=== PATIENT | male | born 1965 | race Caucasian/White ===

== ENCOUNTER 2020-06-06 08:11 | Emergency (ER) | payer MEDICARE ==
[~2020-06-06] VITALS: Ht 175.3 cm; Wt 88.5 kg
--- OUTSIDE RECORDS SUMMARY | ~2020-06-06 | XMS | Encounter Summary ---
Demographics + + + | Address | [address] | | | [place] [address] | + + + | Home Phone | | + + + | Preferred Language | Unknown | + + + | Marital Status | Single | + + + | Yazidi Affiliation | CHR | + + + | Race | White | + + + | Ethnic Group | Not or | + + + Author + + + | Author | [facility] | + + + | Organization | [facility] | + + + | Address | Unknown | + + + | Phone | Unavailable | + + + Support + + +---------+ + | Name | Relationship | Address | Phone | + + +---------+ + | Servando Boyer | ECON | Unknown | | + + +---------+ + Care Team Providers + +------+ + | Care Freezer Tunnel Operator Name | Role | Phone | + +------+ + | Aryan Grossman MD | PCP | | + +------+ + Encounter Details +--------+ + + + + | Date | Type | Department | Care Team | Description | +--------+ + + + + | 01/29/ | Document-Sc | Dermatology at | Deya Silvestre, | | | 2016 | anned | Mattie Urias | ,PhD 1935 | | | | | Clinic [address] | [address] [place] | | | | | [place], [place] | [address] | | | | | [address] | [phone] | | | | | [phone] | | | +--------+ + + + + Social History + + + +--------+------+ | Tobacco Use | Types | Packs/Day | Years | Date | | | | | Used | | + + + +--------+------+ | Smoker, Current | Cigarettes | 0.5 | 24 | | | Status Unknown | | | | | + + + +--------+------+ + + | Comments: discussed smoking cessation, he will follow up with PCP | + + + + + + + | Alcohol Use | Drinks/Week | oz/Week | Comments | + + + + + | Yes | 2-5 Standard | 1.7 - 4.2 | | | | drinks or equivalent | | | + + + + + + + + | Sex Assigned at | Date Recorded | | | | + + + | Not on file | | + + + documented as of this encounter Plan of Treatment Not on filedocumented as of this encounter Visit Diagnoses Not on filedocumented in this encounter"
--- OUTSIDE RECORDS SUMMARY | ~2020-06-06 | XMS | Encounter Summary ---
Demographics + + + | Address | NEED ADDRESS | | | [place] [address] | + + + | Home Phone | | + + + | Preferred Language | Unknown | + + + | Marital Status | Single | + + + | Druze Affiliation | Unknown | + + + | Race | White | + + + | Ethnic Group | Not or | + + + Author + + + | Author | [facility] | | | and [place] | + + + | Organization | [facility] | | | and [place] | + + + | Address | Unknown | + + + | Phone | Unavailable | + + + Support + + + + + | Name | Relationship | Address | Phone | + + + + + | Servando Boyer | ECON | Unknown | | + + + + + | Hector Garcia | ECON | [place] [address] | | + + + + + Care Team Providers + +------+ + | Care Cashier Credit Name | Role | Phone | + +------+ + | Loi Frausto PA-C | PCP | | + +------+ + Reason for Visit + + + | Reason | Comments | + + + | New Patient | tongue ulcer,patient states that he has no pain | + + + Evaluate & Treat (Routine) +--------+--------+ + + + + | Status | Reason | Specialty | Diagnoses / | Referred By | Referred To | | | | | Procedures | Contact | Contact | +--------+--------+ + + + + | Closed | | Otolaryngolog | Diagnoses | Lisbet, | Antony Grider | | | | y | Glossitis | Loi | MD [address] | | | | | tongue ulcer | PA-C [address] | | | | | | [place] | [place] [address] | | | | | | [place] | [place] | | | | | | [place] | [address] Phone: | | | | | | [address] | [phone] | | | | | | Phone: | Fax: | | | | | | [phone] | [phone] | | | | | | Fax: | | | | | | | [phone] | | +--------+--------+ + + + + Encounter Details +--------+---------+ + + + | Date | Type | Department | Care Team | Description | +--------+---------+ + + + | 08/31/ | Office | [facility] | Antony Grider MD | Tongue mass (Primary | | 2017 | Visit | OTOLARYNGOLOGY [address] | [address] [place] | Dx); Noise-induced | | | | [facility] [address] | [address] [place] | hearing loss of both | | | | [place] | [address] | ears | | | | [address] | | | | | | [phone] | | | +--------+---------+ + + + Social History + + + +--------+------+ | Tobacco Use | Types | Packs/Day | Years | Date | | | | | Used | | + + + +--------+------+ | Heavy Tobacco Smoker | Cigarettes | 1 | 25 | | + + + +--------+------+ + +---+---+---+ | Smokeless Tobacco: | | | | | Never Used | | | | + +---+---+---+ + + +---------+ + | Alcohol Use | Drinks/Week | oz/Week | Comments | + + +---------+ + | Yes | 0 Standard drinks | 14.0 | At least a 6 pack of | | | or equivalent 14 | | beer a day | | | Cans of beer | | | + + +---------+ + + + + | Sex Assigned at | Date Recorded | | | | + + + | Not on file | | + + + documented as of this encounter Last Filed Vital Signs + + + + + | Vital Sign | Reading | Time Taken | Comments | + + + + + | Blood Pressure | - | - | | + + + + + | Pulse | 93 | 08/31/2017 9:02 AM | | | | | PST | | + + + + + | Temperature | - | - | | + + + + + | Respiratory Rate | 16 | 08/31/2017 9:02 AM | | | | | PST | | + + + + + | Oxygen Saturation | 98% | 08/31/2017 9:02 AM | | | | | PST | | + + + + + | Inhaled Oxygen | - | - | | | Concentration | | | | + + + + + | Weight | 83 kg (183 lb) | 08/31/2017 9:02 AM | | | | | PST | | + + + + + | Height | 175.3 cm (5' 9") | 08/31/2017 9:02 AM | | | | | PST | | + + + + + | Body Mass Index | 27.02 | 08/31/2017 9:02 AM | | | | | PST | | + + + + + documented in this encounter Progress Notes Antony Grider MD - 08/31/2017 9:15 AM PSTPatient noted daily area on the underside of his tongue that showed up about 4-5 months ago. It is a dentist pointed out that it should be evaluated. It has some slight tenderness but no severe pain. It is not disappearing and he comes in to have it evaluated. He's not having any other ENT complaints. He has a history of prostate cancer and the fact that he has a area on his tongue that is changed he's bob rned about a possibly being cancer. No difficulty with swallowing and no change in his voca l function. Examination: Patient is an alert 52-year-old male who's communicating well. Skin of the fa ce nose and ears all appeared to be smooth and healthy. Ear canals are open and clean and d rums are clear. He is complaining that he hears very poorly and he has worked around a lot of noise throughout his life. Nasal passages were open without any mass or obstruction note d he has some scabbing on the right septal area and advised to use some Vaseline daily to tr y to help this heal. Floor the mouth, buccal mucosa, hard palate, teeth, lips and gums all appear smooth and healthy. No mass seen in the oropharynx and posterior pharyngeal wall was smooth. Soft palate appeared smooth and healthy. The tongue moves symmetrically. Underne ath the tongue he has a whitish leukoplakic area that's about to 67 mm in size and is rough and irregular. It is mostly nontender. Neck is smooth without any mass or lymphadenopathy noted. Thyroid gland was smooth and trachea is midline. He moves his neck well without any pain or discomfort noted. Impression: #1 leukoplakic lesion of the tongue. #2 hearing loss. Plan: Patient will be scheduled to have the lesion of the tongue removed and minor surgery and sent for path examination. At the same time may be scheduled have an audiogram to [facility] evaluate his hearing. documented in this encounter Plan of Treatment Not on filedocumented as of this encounter Visit Diagnoses + + | Diagnosis | + + | Tongue mass - Primary Swelling, mass, or lump in head and neck | + + | Noise-induced hearing loss of both ears | + + documented in this encounter
--- OUTSIDE RECORDS SUMMARY | ~2020-06-06 | XMS | Encounter Summary ---
Demographics + + + | Address | [address] | | | [place] [address] | + + + | Home Phone | | + + + | Preferred Language | Unknown | + + + | Marital Status | Single | + + + | Mosque Affiliation | CHR | + + + | Race | White | + + + | Ethnic Group | Not or | + + + Author + + + | Author | [facility] | + + + | Organization | [facility] | + + + | Address | Unknown | + + + | Phone | Unavailable | + + + Support + + +---------+ + | Name | Relationship | Address | Phone | + + +---------+ + | Servando Boyer | ECON | Unknown | | + + +---------+ + Care Team Providers + +------+ + | Care Snack Foods Mixer Operator Name | Role | Phone | + +------+ + | Aryan Grossman MD | PCP | | + +------+ + Encounter Details +--------+------+ + + + | Date | Type | Department | Care Team | Description | +--------+------+ + + + | 06/27/ | Lab | Laboratory at [facility] | | Prostate cancer | | 2017 | | [address] | | ([facility]) | | | | [facility] | | | | | | and Healing, | | | | | | [address] | | | | | | [place], [place] | | | | | | [address] | | | | | | [phone] | | | +--------+------+ + + + Social History + + [...] | | | + +---+---+---+ + + | Comments: discussed smoking cessation, [...] Not on filedocumented as of this encounter Procedures + +--------+ + + + | Procedure Name | Priori | Date/Time | Associated Diagnosis | Comments | | | ty | | | | + +--------+ + + + | [facility] PSA TOTAL, | Routin | 06/27/2017 | Prostate cancer | Results for this | | MONITORING | e | 12:45 PM | (HCC) | procedure are in the | | | | PDT | | results section. | + +--------+ + + + | TESTOSTERONE, SERUM | Routin | 06/27/2017 | Prostate cancer | Results for this | | | e | 12:45 PM | (HCC) | procedure are in the | | | | PDT | | results section. | + +--------+ + + + documented in this encounter Results TESTOSTERONE, SERUM (06/27/2017 12:45 PM PDT) + + + + + + | Component | Value | Ref Range | Performed | Pathologist | | | | | At | Signature | + + + + + + | TESTOSTERON | 21 (L)Comment: Total | 300 - 890 ng/dL | [facility] | | | E, ADULT | testosterone values may | | REG UNIV | | | MALE | not reflect optimal | | PTH - [facility] | | | | concentrations in all | | | | | | individuals. Free or | | | | | | bioavailable | | | | | | testosterone | | | | | | measurements may provide | | | | | | supportive | | | | | | information.REFERENCE | | | | | | INTERVAL: Testosterone, | | | | | | Adult Male Access | | | | | | complete set of age- | | | | | | and/or gender-specific | | | | | | reference intervals for | | | | | | this test in the [facility] | | | | | | Laboratory Test | | | | | | Directory | | | | | | (NoWait.Tripda).Performed | | | | | | by [employer],[address] | | | | | | [address], [facility] [place] | | | | | | [address] | | | | | | [phone].NoWait. | | | | | | com, Elvis Fernandes MD, | | | | | | Lab. Director | | | | + + + + + + + + | Specimen | + + | Blood - Blood | | (substance) | + + + + + + + | Performing | Address | City/State/Zipcode | Phone Number | | Organization | | | | + + + + + | [facility] | [address] | [place], [place] | | | UNIV PTH - INT[facility] | | [address] | | + + + + + [facility] PSA TOTAL, MONITORING (06/27/2017 12:45 PM PDT) + +-------+ + + + | Component | Value | Ref Range | Performed | Pathologist | | | | | At | Signature | + +-------+ + + + | PSA TOTAL | 0.92 | ng/mL | [facility] | | | MONITORING | | | LABORATORY | | | | | | SERVICES, | | | | | | [facility] | | | | | [facility] + | | | | | | [facility]AL[facility] | | + +-------+ + + + + + | Specimen | + + | Blood - Blood | | (substance) | + + + + + + + | Performing | Address | City/State/Zipcode | Phone Number | | Organization | | | | + + + + + | [facility] | [address] | [place] [address] | | | SERVICES, [facility] | | | | | HEALTH + HEALING | | | | + + + + + documented in this encounter Visit Diagnoses + + | Diagnosis | + + | Prostate cancer (HCC) Malignant neoplasm of prostate | + + documented in this encounter"
--- OUTSIDE RECORDS SUMMARY | ~2020-06-06 | XMS | Encounter Summary ---
Demographics + + + | Address | NEED ADDRESS | | | [place] [address] | + + + | Home Phone | | + + + | Preferred Language | Unknown | + + + | Marital Status | Single | + + + | Uatsdin Affiliation | Unknown | + + + | Race | White | + + + | Ethnic Group | Not or | + + + Author + + + | Author | [facility] | | | and [place] | + + + | Organization | [facility] | | | and [...] Hector Garcia | ECON | [place] [address] | | + + + + + Care Team Providers + +------+ + | Care Wound Specialist Name | Role | Phone | + +------+ + PCP | Unavailable | + +------+ + Encounter Details +--------+ + + + + | Date | Type | Department | Care Team | Description | +--------+ + + + + | 05/23/ | Emergency | [facility] | Seth Munoz, | Unspecified Disorder | | 2005 | | MEDICAL CENTER | MD [address] | of Skin and | | | | EMERGENCY CENTER | [place] [address] | Subcutaneous Tissue | | | | [address] | [phone] | | | | | [place], [place] | | | | | | [address] | | | | | | [phone] | | | +--------+ + + + + Social History + +-------+ +--------+------+ | Tobacco Use | Types | Packs/Day | Years | Date | | | | | Used | | + +-------+ +--------+------+ | Never Assessed | | | | | + +-------+ +--------+------+ + + + | Sex Assigned at | Date Recorded | | | | + + + | Not on file | | + + + documented as of this encounter Plan of Treatment Not on filedocumented as of this encounter Visit Diagnoses + + | Diagnosis | + + | Unspecified disorder of skin and subcutaneous tissue | + + documented in this encounter"
--- OUTSIDE RECORDS SUMMARY | ~2020-06-06 | XMS | Encounter Summary ---
Demographics + + + | Address | [address] | | | [place] [address] | + + + | Home Phone | | + + + | Preferred Language | Unknown | + + + | Marital Status | Single | + + + | Quaker Affiliation | CHR | + + + | Race | White | + + + | Ethnic Group | Not or | + + + Author + + + | Author | [facility] | + + + | Organization | [facility] | + + + | Address | Unknown | + + + | Phone | Unavailable | + + + Support + + +---------+ + | Name | Relationship | Address | Phone | + + +---------+ + | Servando Boyer | ECON | Unknown | | + + +---------+ + Care Team Providers + +------+ + | Care Clinical Nurse Educator Name | Role | Phone | + +------+ + | Aryan Grossman MD | PCP | | + +------+ + Encounter Details +--------+ + + + + | Date | Type | Department | Care Team | Description | +--------+ + + + + | 05/31/ | Document-Sc | Health Information | Unknown . | | | 2013 | anned | Services [address] | | | | | | [address] | | | | | | Mailcode: [id number] | | | | | | [facility] | | | | | | [place], [place] | | | | | | [address] | | | | | | [phone] | | | +--------+ + + + [...] + + documented as of this encounter Procedure James Acevedo, Faculty - 07/19/2014 1:25 PM PDTAssociated Order(s): LAB REPORTSElectronically sign ed by Faculty Other at 07/19/2014 1:25 PM PDTdocumented in this encounter Plan of Treatment Not on filedocumented as of this encounter Procedures + +--------+ + + + | Procedure Name | Priori | Date/Time | Associated Diagnosis | Comments | | | ty | | | | + +--------+ + + + | LAB REPORTS | | 05/31/2014 | | Results for this | | | | 12:00 AM | | procedure are in the | | | | PDT | | results section. | + +--------+ + + + documented in this encounter Results LAB REPORTS (05/31/2014 12:00 AM PDT) + + + | Narrative | Performed At | + + + | | | | | | + + + + + | Procedure Note | + + | Curtis, Faculty - 07/19/2014 1:25 PM PDT | + + documented in this encounter Visit Diagnoses Not on filedocumented in this encounter"
--- OUTSIDE RECORDS SUMMARY | ~2020-06-06 | XMS | Encounter Summary ---
Demographics + + + | Address | NEED ADDRESS | | | [place] [address] | + + + | Home Phone | | + + + | Preferred Language | Unknown | + + + | Marital Status | Single | + + + | Baptism Affiliation | Unknown | + + + | Race | White | + + + | Ethnic Group | Not or | + + + Author + + + | Author | [facility] | | | and [place] | + + + | Organization | [facility] | | | [...] Hector Garcia | ECON | [place] [address] | | + + + + + Care Team Providers + +------+ + | Care Salmon Troll Fisher Name | Role | Phone | + +------+ + | Aryan Grossman MD | PCP | | + +------+ + Reason for Visit + +--------+ + | Reason | Onset | Comments | | | Date | | + +--------+ + | Medication Reaction | 04/16/ | | | | 2014 | | + +--------+ + Encounter Details +--------+ + + + + | Date | Type | Department | Care Team | Description | +--------+ + + + + | 04/16/ | Telephone | [facility] | Aryan Grossman, | Medication Reaction | | 2014 | | MEDICINE [address] | [address] | | | | | [place], | [place] [address] [place], | | | | | [place] [address] | [place] [address] | | | | | [phone] | [phone] | | | | | | | | +--------+ + + + + Social History + + + +--------+------+ | Tobacco Use | Types | Packs/Day | Years | Date | | | | | Used | | + + + +--------+------+ | Current Some Day | Cigarettes | 1 | 20 | | | Smoker | | | | | + + + +--------+------+ + +---+---+---+ | Smokeless Tobacco: | | | | | Never Used | | | | + +---+---+---+ + + +---------+ + | Alcohol Use | Drinks/Week | oz/Week | Comments | + + +---------+ + | Yes | | 0.0 | Few beers per week | + + +---------+ + + + + | Sex Assigned at | Date Recorded | | | | + + + | Not on file | | + + + documented as of this encounter Miscellaneous Notes Telephone Encounter - Kyleigh De Santiago RN - 04/16/2015 4:39 PM PDTPatient states he chico t to his dentist for an abscessed tooth and was given Amoxicillin which caused his face to s well on one side and then changed by his dentist to Clindamyacin and now his face is swelled to both sides. Advised to go into Urgent Care for evaluation documented in this encounter Plan of Treatment Not on filedocumented as of this encounter Visit Diagnoses Not on filedocumented in this encounter"
--- OUTSIDE RECORDS SUMMARY | ~2020-06-06 | XMS | Encounter Summary ---
Demographics + + + | Address | NEED ADDRESS | | | [place] [address] | + + + | Home Phone | | + + + | Preferred Language | Unknown | + + + | Marital Status | Single | + + + | Holiness Affiliation | Unknown | + + + | Race | White | + + + | Ethnic Group | Not or | + + + Author + + + | Author | [facility] | | | and [place] | + + + | Organization | [facility] | | | and [...] Hector Garcia | ECON | [place] [address] | | + + + + + Care Team Providers + +------+ + | Care Gi Tech Name | Role | Phone | + +------+ + | Loi Frausto PA-C | PCP | | + +------+ + Encounter Details +--------+ + + + + | Date | Type | Department | Care Team | Description | +--------+ + + + + | 02/28/ | Orders Only | [facility] | Zeeshan Hawkins, | Prostate cancer | | 2018 | | [address] | MD [address] | (HCC) (Primary Dx) | | | | [place] | [place] | | | | | [address] | [address] | | | | | [phone] | | | +--------+ + + + + Social History + + + +--------+------+ | Tobacco Use | Types | Packs/Day | Years | Date | | | | | Used | | + + + +--------+------+ | Heavy Tobacco Smoker | Cigarettes | 1 | 21 | | + + + +--------+------+ + +---+---+---+ | Smokeless Tobacco: | | | | | Never Used | | | | + +---+---+---+ + + +---------+ + | Alcohol Use | Drinks/Week | oz/Week | Comments | + + +---------+ + | No | 0 Standard drinks | 0.0 | Recovering alcoholic | | | or equivalent | | stopped 06/26/2017 | + + +---------+ + + + + | Sex Assigned at | Date Recorded | | | | + + + | Not on file | | + + + documented as of this encounter Plan of Treatment Not on filedocumented as of this encounter Visit Diagnoses + + | Diagnosis | + + | Prostate cancer (HCC) - Primary Malignant neoplasm of prostate | + + documented in this encounter"
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
--- OUTSIDE RECORDS SUMMARY | ~2020-06-06 | XMS | Encounter Summary ---
Demographics + + + | Address | NEED ADDRESS | | | [place] [address] | + + + | Home Phone | | + + + | Preferred Language | Unknown | + + + | Marital Status | Single | + + + | Oriental Orthodox Affiliation | Unknown | + + + | Race | White | + + + | Ethnic Group | Not or | + + + Author + + + | Author | [facility] | | | and [place] | + + + | Organization | [facility] | | | [...] + | Hector Garcia | ECON | [place] [address] | | + + + + + Care Team Providers + +------+ + | Care Hospice Manager Name | Role | Phone | + +------+ + | Aryan Grossman MD | PCP | | + +------+ + Reason for Referral Evaluate & Treat (Routine) +--------+ + + + + + | Status | Reason | Specialty | Diagnoses / | Referred By | Referred To | | | | | Procedures | Contact | Contact | +--------+ + + + + + | Closed | Specialty | Sleep | Diagnoses | Chauncey, | Ian, | | | Services | Medicine | Insomnia | Aryan Velásquez MD | Christian Gupta | | | Required | | due to | [address] | MD [address] | | | | | medical | [address] | [place] | | | | | condition | [place] | [place] | | | | | | [place] | [place] | | | | | | [address] | [address] Phone: | | | | | | Phone: | [phone] | | | | | | [phone] | Fax: | | | | | | Fax: | [phone] | | | | | | [phone] | | +--------+ + + + + + Evaluate & Treat (Routine) +--------+ + + + + + | Status | Reason | Specialty | Diagnoses / | Referred By | Referred To | | | | | Procedures | Contact | Contact | +--------+ + + + + + | Closed | Specialty | Dermatology | Diagnoses | Morasch, | Konrad, | | | Services | | Alopecia | Aryan Velásquez MD | Deya Irizarry MD | | | Required | | | [address] | [address] | [address] | | | | | | [place] | [place] | | | | | | [place] | [address] | | | | | | [address] | Phone: | | | | | | Phone: | [phone] | | | | | | [phone] | Fax: | | | | | | Fax: | [phone] | | | | | | [phone] | | +--------+ + + + + + Reason for Visit + + + | Reason | Comments | + + + | Hypertension | | + + + | Insomnia | | + + + | Alopecia | | + + + Encounter Details +--------+---------+ + + + | Date | Type | Department | Care Team | Description | +--------+---------+ + + + | 12/08/ | Office | [facility] | Aryan Grossman, | Essential | | 2016 | Visit | MEDICINE [address] | [address] | hypertension | | | | [address] [place], | [address] [place], | (Primary Dx); | | | | [place] [address] | [place] [address] | Alopecia; Depression | | | | [phone] | [phone] | with anxiety; | | | | | | Insomnia due to | | | | | | medical condition; | | | | | | Alcoholism (HCC); | | | | | | Insomnia, | | | | | | unspecified insomnia | +--------+---------+ + + + Social History [...] + + +---------+ + | No | | 0.0 | States quit drinking | | | | | 3 weeks ago and is | | | | | in classes 06/25/15 | + + +---------+ + + + [...] + + + | Blood Pressure | 130/80 | 12/09/2015 7:25 AM | | | | | PDT | | + + + + + | Pulse | 74 | 12/09/2015 7:25 AM | | | | | PDT | | + + + + + | Temperature | 36.2 C (97.2 F) | 12/09/2015 7:25 AM | | | | | PDT | | + + + + + | Respiratory Rate | 16 | 12/09/2015 7:25 AM | | | | | PDT | | + + + + + | Oxygen Saturation | 98% | 12/09/2015 7:25 AM | | | | | PDT | | + + + + + | Inhaled Oxygen | - | - | | | Concentration | | | | + + + + + | Weight | 92.1 kg (203 lb) | 12/09/2015 7:25 AM | | | | | PDT | | + + + + + | Height | 175.3 cm (5' 9") | 12/09/2015 7:25 AM | | | | | PDT | | + + + + + | Body Mass Index | 29.98 | 12/09/2015 7:25 AM | | | | | PDT | | + + + + + documented in this encounter Progress Notes Aryan Grossman MD - 12/09/2015 7:48 AM PDTFormatting of this note might be different f rom the original. Subjective: Patient ID: Mani Garcia is a 50 y.o. male. HPI Hair Loss, happened 4 year ago, He was under a lot of stress at the time. Small areas all over scalp for the last couple months. HTN, there is no recent chest pain SOB ankle swelling etc. He is compliant with his meds. Depression and Anxiety, Insomnia He is but now taking sertraline. He has difficult sleep and sometimes his mind does not shut off at night. He snores and is concerned he might sto p breathing at night. Alcoholism, he has Still not been drinking. He is almost done with alcohol classes. PMH: HTN Hyperlipidemia Alcoholism PSH: Right thumb 2007 Lumbar Diskectomy 1992 Fhx: Mom 64 Ovarian Cancer Dad 50 of MS complications Sister 54, recurrent lymphoma,. 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 Colon Drinks 5 drinks of whisky per night, poured. Cigarettes 1 ppd Review of Systems Constitutional: no fever, No appetite change, no fatigue. HEENT: Neg ear pain, No nosebleeds,no rhinorrhea,no trouble swallowing and no sinus pressure. Eyes: Neg for pain and no visual disturbance. Respiratory: Neg for cough, no chest tightness, no shortness of breath no wheezing. Cardiovascular: Neg for chest pain, no palpitations and no leg swelling. Gastrointestinal: Neg for nausea,no vomiting,no diarrhea,no constipation no abdominal distention. No Belly pain, no black and no bloody stools, no excessive gas Genitourinary: Negative for urgency, no frequency, no decreased urine volume no difficulty urinating. No Bloody urine Musculoskeletal: Neg for myalgias, no back pain, no joint swelling and No ar thralgias. No joint pain Skin: Neg for color change,no rash and No wounds, no Strange moles , some hair loss Neurological: Neg for dizziness, no Weakness,no light-headedness, no numbness and no headaches. Hematological: Neg for adenopathy. Does not bruise/bleed easily. Psychiatric/Behavioral: Neg for suicidal ideas,no confusion and no agitation. no Depression, no anxiety,some sleep problems , snoring Objective: Physical Exam Heent, WNL, No carotid bruit Chest CTAB Heart RR&R /s M Abd S,NT,ND,BS+ Ext, no CCor E Neuro Non-focal Lymph, no cervical, axillary, inguinal adenopathy Musculoskeletal, no gross deformity or loss or range of motion Skin, no gross lesions, some focal hair loss Assessment: 1. Essential hypertension 2. Alopecia 3. Depression with anxiety 4. Insomnia due to medical condition 5. Alcoholism (HCC) Plan: Refer to Derm, refer to sleep, Refill the ambien, RTC 3 months. Otherwise continue curren t medical regimen. documented in this encounter Plan of Treatment + + +--------+ + + | Name | Type | Priori | Associated Diagnoses | Order Schedule | | | | ty | | | + + +--------+ + + | Ambulatory referral | Outpatient | Routin | Alopecia | Ordered: 12/09/2015 | | to Dermatology | Referral | e | | | + + +--------+ + + | * [facility] | Outpatient | Routin | Insomnia due to | Ordered: 12/09/2015 | | Sleep Disorder - AMB | Referral | e | medical condition | | | Referral | | | | | + + +--------+ + + documented as of this encounter Visit Diagnoses + + | Diagnosis | + + | Essential hypertension - Primary Unspecified essential hypertension | + + | Alopecia Alopecia, unspecified | + + | Depression with anxiety Dysthymic disorder | + + | Insomnia due to medical condition Insomnia due to medical condition classified | | elsewhere | + + | Alcoholism (HCC) Other and unspecified alcohol dependence, unspecified drinking | | behavior | + + | Insomnia, unspecified insomnia | + + documented in this encounter
--- OUTSIDE RECORDS SUMMARY | ~2020-06-06 | XMS | Encounter Summary ---
Demographics + + + | Address | NEED ADDRESS | | | [place] [address] | + + + | Home Phone | | + + + | Preferred Language | Unknown | + + + | Marital Status | Single | + + + | Rastafari Affiliation | Unknown | + + + | Race | White | + + + | Ethnic Group | Not or | + + + Author + + + | Author | [facility] | | | and [place] | + + + | Organization | [facility] | | [...] + | Hector Garcia | ECON | [place] [address] | | + + + + + Care Team Providers + +------+ + | Care Plugger Name | Role | Phone | + +------+ + | Loi Frausto PA-C | PCP | | + +------+ + Reason for Referral Diagnostic/Screening (Routine) +--------+--------+ + + + + | Status | Reason | Specialty | Diagnoses / | Referred By | Referred To | | | | | Procedures | Contact | Contact | +--------+--------+ + + + + | Closed | | Radiology | Diagnoses | Grider, | [facility] | | | | | Cervicalgia | Antony Powell MD | [address] | | | | | Left arm | [address] | [place], | | | | | weakness | [address] | [place] | | | | | Numbness and | [place], | [address] | | | | | tingling in | [place] [address] | Phone: | | | | | left hand | Phone: | [phone] | | | | | Atrophy of | [phone] | Fax: | | | | | muscle of | Fax: | [phone] | | | | | left upper | [phone] | | | | | | arm Other | | | | | | | osteoarthrit | | | | | | | is of spine, | | | | | | | cervical | | | | | | | region | | | | | | | Procedures | | | | | | | MRI Cervical | | | | | | | Spine wo | | | | | | | Contrast | | | +--------+--------+ + + + + Reason for Visit Diagnostic/Screening (Routine) +--------+--------+ + + + + | Status | Reason | Specialty | Diagnoses / | Referred By | Referred To | | | | | Procedures | Contact | Contact | +--------+--------+ + + + + | Closed | | Radiology | Diagnoses | Grider, | [facility] | | | | | Cervicalgia | Antony Powell MD | [address] | | | | | Left arm | [address] | [place], | | | | | weakness | [address] | [place] | | | | | Numbness and | [place], | [address] | | | | | tingling in | [place] [address] | Phone: | | | | | left hand | Phone: | [phone] | | | | | Atrophy of | [phone] | Fax: | | | | | muscle of | Fax: | [phone] | | | | | left upper | [phone] | | | | | | arm Other | | | | | | | osteoarthrit | | | | | | | is of spine, | | | | | | | cervical | | | | | | | region | | | | | | | Procedures | | | | | | | MRI Cervical | | | | | | | Spine wo | | | | | | | Contrast | | | +--------+--------+ + + + + Encounter Details +--------+ + + + + | Date | Type | Department | Care Team | Description | +--------+ + + + + | 11/29/ | Hospital | [facility] | Antony Grider, | Cervicalgia; Left | | 2018 | Encounter | [facility] MRI [address] | MD [address] | arm weakness; | | | | [address] [place], | [place], [place] | Numbness and | | | | [place] [address] | [address] | tingling in left | | | | [phone] | | hand; Atrophy of | | | | | | muscle of left upper | | | | | | arm; Other | | | | | | osteoarthritis of | | | | | | spine, cervical | | | | | | region | +--------+ + + + + Social [...] + + documented as of this encounter Medications at Time of Discharge [...] + + + +---------+ + + | acetaminophen | Take 650 mg by mouth | | 0 | 06/13/20 | | | (TYLENOL) 325 mg | every 6 hours as | | | 17 | 8 | | tablet | needed. | | | | | + + + +---------+ + + | aspirin 81 MG EC | Take 1 tablet by | | 0 | | | | tablet | mouth Daily. | | | | 8 | + + + +---------+ + + [...] + + + +---------+ + + | fluticasone | 1 spray by Nasal | | 0 | 07/11/20 | | | (FLONASE) 50 | route Daily. | | | 17 | 8 | | mcg/nasal spray | | | | | | + + + +---------+ + + | | Take 37.5 mg by | | 0 | 03/16/20 | | | hydroCHLOROthiazide | mouth Daily. | | | 17 | 8 | | 25 mg tablet | | | | | | + + + +---------+ + + | naproxen | Take 500 mg by mouth | | 0 | 09/25/20 | | | (NAPROSYN) 500 mg | 2 times daily. | | | 17 | 9 | | tablet | | | | | | + + + +---------+ + + | ondansetron | Take 4 mg by mouth | | 0 | 05/16/20 | | | (ZOFRAN) 4 mg tablet | as needed. | | | 17 | 8 | + + + +---------+ + + | oxybutynin | Take 1 tablet by | | 0 | 03/28/20 | | | (DITROPAN-XL) 10 MG | mouth as needed. | | | 17 | 8 | | 24 hr tablet | | | | | | + + + +---------+ + + | sodium chloride | 1-2 sprays by Nasal | | 0 | 02/10/20 | | | (OCEAN) 0.65% nasal | route as needed. | | | 17 | 8 | | spray | | | | | | + + + +---------+ + + documented as of this encounter Plan of Treatment Not on filedocumented as of this encounter Procedures + +--------+ + + + | Procedure Name | Priori | Date/Time | Associated Diagnosis | Comments | | | ty | | | | + +--------+ + + + | MRI CERVICAL SPINE | Routin | 11/29/2017 | Cervicalgia Left | Results for this | | WO CONTRAST | e | 3:53 PM | arm weakness | procedure are in the | | | | PST | Numbness and | results section. | | | | | tingling in left | | | | | | hand Atrophy of | | | | | | muscle of left upper | | | | | | arm Other | | | | | | osteoarthritis of | | | | | | spine, cervical | | | | | | region | | + +--------+ + + + documented in this encounter Results MRI Cervical Spine wo Contrast (11/29/2017 3:53 PM PST) + + | Specimen | + + | | + + + + + | Narrative | Performed At | + + + | EXAM: MRI CERVICAL SPINE WO CONTRAST dated 11/29/2017 2:32 PM. | [facility] | | HISTORY: neck pain, left arm numbness, pain, weakness, atrophy, prior | | | CT with spondylosis. Please evaluate for spinal stenosis. Please | | | evaluate for neural foraminal narrowing COMPARISON: CT cervical | | | spine dated December 10, 2015. TECHNIQUE: Multiplanar multisequence | | | MR imaging of the cervical spine without contrast. This is | | | performed on a 3 Faiza magnet. FINDINGS: Reversal of the normal | | | cervical lordosis. Slight anterolisthesis of C4. Diffuse disc | | | desiccation. Moderate disc narrowing at C5-C6 and C6-C7. Mild at | | | C7-T1 through T3-T4. There are Modic type I endplate changes at | | | C3-C4, C5-C6 and C6-C7. No compression deformities. Small | | | posterior disc protrusions at T1-T2 and T2-T3 result in mild | | | narrowing of the central spinal canal. There is a T1 and T2 | | | hypointense round structure and C4. This has some mild STIR | | | hyperintensity. This corresponds to an area of round sclerosis in | | | the C4 vertebral body. The cord has normal size, signal, and | | | contour throughout visible course. Limited evaluation of the | | | posterior fossa contents is unremarkable. Partial visualization of | | | mucous retention cysts in the maxillary sinuses bilaterally. No | | | precervical soft tissue thickening. The following levels are | | | evaluated in the axial plane: C2-C3: No significant spinal canal | | | stenosis or neural foraminal narrowing. C3-C4: No significant | | | disc bulge or protrusion. Bilateral facet arthrosis and uncinate | | | hypertrophy. Moderate bilateral neural foraminal narrowing. | | | C4-C5: Posterior disc protrusion. Central component with high signal | | | suggesting an annular tear. Facet arthrosis and uncinate | | | hypertrophy bilaterally. Mild narrowing of the central spinal | | | canal. Moderate to severe right and moderate left neural foraminal | | | narrowing. C5-C6: Posterior disc protrusion. Mild narrowing of | | | the central spinal canal. Broad component of disc with facet | | | arthrosis and uncinate hypertrophy. Mild to moderate bilateral | | | neural foraminal narrowing. C6-C7: Posterior disc and osteophyte. | | | Mild narrowing of the central spinal canal. Facet arthrosis and | | | uncinate hypertrophy bilaterally. Moderate to severe left and | | | moderate right neural foraminal narrowing. C7-T1: Small posterior | | | disc protrusion. Mild narrowing of the central spinal canal. | | | Right facet arthrosis and uncinate hypertrophy is greater than on | | | the left. Severe right and mild to moderate left neural foraminal | | | narrowing. The visible paravertebral soft tissues are | | | unremarkable. Azygos lobe variant in the right upper lung. | | | IMPRESSION - There is diffuse cervical spondylosis. Central | | | spinal canal narrowing is predominantly mild and seen at the C4-C5, | | | C5-C6, C6-C7, C7-T1 levels. Multilevel neural foraminal narrowing. | | | This is diffuse and affects C3-C4, C4-C5, C6-C7, C7-T1. Details | | | are as above. Sclerotic lesion in C4. This has long-term | | | presence. This could be a remnant metastasis in a patient with | | | known prostate cancer. Dictated and Signed by: Antonio Waite MD | | | Electronically signed: 11/29/2017 7:43 PM | | + + + + + | Procedure Note | + + | Frank, Rad Results In - 11/29/2017 7:46 PM PST EXAM: MRI CERVICAL SPINE WO CONTRAST | | dated 11/29/2017 2:32 PM.HISTORY: neck pain, left arm numbness, pain, weakness, atrophy, | | prior CT withspondylosis. Please evaluate for spinal stenosis. Please evaluate for | | neuralforaminal narrowingCOMPARISON: CT cervical spine dated December 10, 2015.TECHNIQUE: | | Multiplanar multisequence MR imaging of the cervical spine withoutcontrast. This is | | performed on a 3 Faiza magnet. FINDINGS: Reversal of the normal cervical lordosis. | | Slight anterolisthesis ofC4. Diffuse disc desiccation. Moderate disc narrowing at | | C5-C6 and C6-C7. Mild at C7-T1 through T3-T4. There are Modic type I endplate changes | | at C3-C4,C5-C6 and C6-C7. No compression deformities. Small posterior disc | | protrusionsat T1-T2 and T2-T3 result in mild narrowing of the central spinal canal. | | Thereis a T1 and T2 hypointense round structure and C4. This has some mild | | STIRhyperintensity. This corresponds to an area of round sclerosis in the [place] | | body. The cord has normal size, signal, and contour throughoutvisible course. Limited | | evaluation of the posterior fossa contents isunremarkable. Partial visualization of | | mucous retention cysts in the maxillarysinuses bilaterally. No precervical soft tissue | | thickening.The following levels are evaluated in the axial plane:C2-C3: No significant | | spinal canal stenosis or neural foraminal narrowing. C3-C4: No significant disc bulge or | | protrusion. Bilateral facet arthrosis anduncinate hypertrophy. Moderate bilateral | | neural foraminal narrowing.C4-C5: Posterior disc protrusion. Central component with | | high signal suggestingan annular tear. Facet arthrosis and uncinate hypertrophy | | bilaterally. Mildnarrowing of the central spinal canal. Moderate to severe right and | | moderateleft neural foraminal narrowing.C5-C6: Posterior disc protrusion. Mild | | narrowing of the central spinal canal. Broad component of disc with facet arthrosis and | | uncinate hypertrophy. Mild tomoderate bilateral neural foraminal narrowing.C6-C7: | | Posterior disc and osteophyte. Mild narrowing of the central spinalcanal. Facet | | arthrosis and uncinate hypertrophy bilaterally. Moderate tosevere left and moderate | | right neural foraminal narrowing.C7-T1: Small posterior disc protrusion. Mild narrowing | | of the central spinalcanal. Right facet arthrosis and uncinate hypertrophy is greater | | than on theleft. Severe right and mild to moderate left neural foraminal narrowing.The | | visible paravertebral soft tissues are unremarkable. Azygos lobe variant inthe right | | upper lung.IMPRESSION -There is diffuse cervical spondylosis.Central spinal canal | | narrowing is predominantly mild and seen at the C4-C5,C5-C6, C6-C7, C7-T1 | | levels.Multilevel neural foraminal narrowing. This is diffuse and affects C3-C4,C4-C5, | | C6-C7, C7-T1. Details are as above.Sclerotic lesion in C4. This has long-term | | presence. This could be a remnantmetastasis in a patient with known prostate | | cancer.Dictated and Signed by: Antonio Waite MD Electronically signed: 11/29/2017 7:43 | | PM | |moderate bilateral neural foraminal narrowing. | | | |C6-C7: Posterior disc and osteophyte. Mild narrowing of the central spinal | |canal. Facet arthrosis and uncinate hypertrophy bilaterally. Moderate to | |severe left and moderate right neural foraminal narrowing. | | | |C7-T1: Small posterior disc protrusion. Mild narrowing of the central spinal | |canal. Right facet arthrosis and uncinate hypertrophy is greater than on the | |left. Severe right and mild to moderate left neural foraminal narrowing. | | | |The visible paravertebral soft tissues are unremarkable. Azygos lobe variant in | |the right upper lung. | | | |IMPRESSION - | | | |There is diffuse cervical spondylosis. | | | |Central spinal canal narrowing is predominantly mild and seen at the C4-C5, | |C5-C6, C6-C7, C7-T1 levels. | | | |Multilevel neural foraminal narrowing. This is diffuse and affects C3-C4, | |C4-C5, C6-C7, C7-T1. Details are as above. | | | |Sclerotic lesion in C4. This has long-term presence. This could be a remnant | |metastasis in a patient with known prostate cancer. | | | |Dictated and Signed by: Antonio Waite MD | | Electronically signed: 11/29/2017 7:43 PM | + + + +---------+ + + | Performing | Address | City[facility] | Phone Number | | Organization | | | | + +---------+ + + | [facility] | | | | + +---------+ + + documented in this encounter Visit Diagnoses + + | Diagnosis | + + | Cervicalgia | + + | Left arm weakness Other musculoskeletal symptoms referable to limbs | + + | Numbness and tingling in left hand Disturbance of skin sensation | + + | Atrophy of muscle of left upper arm | + + | Other osteoarthritis of spine, cervical region | + + documented in this encounter"
--- OUTSIDE RECORDS SUMMARY | ~2020-06-06 | XMS | Encounter Summary ---
Demographics + + + | Address | [address] | | | [place] [place] [address] | + + + | Home Phone | | + + + | Preferred Language | Unknown | + + + | Marital Status | Single | + + + | Adventist Affiliation | CHR | + + + | Race | White | + + + | Ethnic Group | Not or | + + + Author + + + | Author | [facility] | + + + | Organization | [facility] | + + + | Address | Unknown | + + + | Phone | Unavailable | + + + Support + + +---------+ + | Name | Relationship | Address | Phone | + + +---------+ + | Servando Boyer | ECON | Unknown | | + + +---------+ + Care Team Providers + +------+ + | Care Adult Neuropsychologist Name | Role | Phone | + +------+ + | Aryan Grossman MD | PCP | | + +------+ + Encounter Details +--------+ + + + + | Date | Type | Department | Care Team | Description | +--------+ + + + + | 08/06/ | Document-Sc | [facility] | Frederic Benavidez MD | | | 2014 | anned | [facility]ics at S | [address] | | | | | [place] [address] | [facility] [place] | | | | | [address] [facility] | [address] | | | | | [facility], | [phone] | | | | | [address] | | | | | | [place], [place] | | | | | | [address] | | | | | | [phone] | | | +--------+ + + + [...] documented as of this encounter Procedure James Acevedo Faculty - 07/19/2014 9:26 AM PDTAssociated Order(s): RADIOLOGY urtis Faculty - 07/19/2014 9:26 AM PDTAssociat ed Order(s): PATHOLOGY docum ented in this encounter Plan of Treatment Not on filedocumented as of this encounter Procedures + +--------+ + + + | Procedure Name | Priori | Date/Time | Associated Diagnosis | Comments | | | ty | | | | + +--------+ + + + | RADIOLOGY | | 07/18/2014 | | Results for this | | | | 12:00 AM | | procedure are in the | | | | PDT | | results section. | + +--------+ + + + | PATHOLOGY | | 02/13/2014 | | Results for this | | | | 12:00 AM | | procedure are in the | | | | PDT | | results section. | + +--------+ + + + documented in this encounter Results RADIOLOGY (07/18/2014 12:00 AM PDT) + + + | Narrative | Performed At | + + + | | | | | | + + + + + | Procedure Note | + + | Curtis Faculty - 07/19/2014 9:26 AM PDT | + + PATHOLOGY (02/13/2014 12:00 AM PDT) + + + | Narrative | Performed At | + + + | | | | | | + + + + + | Procedure Note | + + | Analia Acevedo - 07/19/2014 9:26 AM PDT | + + documented in this encounter Visit Diagnoses Not on filedocumented in this encounter"
--- OUTSIDE RECORDS SUMMARY | ~2020-06-06 | XMS | Encounter Summary ---
Demographics + + + | Address | NEED ADDRESS | | | [place] [address] | + + + | Home Phone | | + + + | Preferred Language | Unknown | + + + | Marital Status | Single | + + + | Confucianist Affiliation | Unknown | + + + | Race | White | + + + | Ethnic Group | Not or | + + + Author + + + | Author | [facility] | | | and [place] | + + + | Organization | [facility] | | [...] Hector Garcia | ECON | [place] [address] | | + + + + + Care Team Providers + +------+ + | Care Car Groomer Name | Role | Phone | + +------+ + | Unknown, Doctor | PCP | | + +------+ + Reason for Referral Diagnostic/Screening (Routine) +--------+--------+ + + + + | Status | Reason | Specialty | Diagnoses / | Referred By | Referred To | | | | | Procedures | Contact | Contact | +--------+--------+ + + + + | Closed | | Radiology | Diagnoses | Shreves, | [facility] | | | | | 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, [facility] | [facility] | | | | | cancer (HCC) | [address] | [place] | | | | | Procedures | Elbert Stevenson | MEDICAL | | | | | NM Bone | [address] | CENTER [address] | | | | | Scan Whole | [place], [place] | [place] | | | | | Body | [address] | [place], | | | | | | Phone: | [place] [address] | | | | | | [phone] | Phone: | | | | | | Fax: | [phone] | | | | | | [phone] | Fax: | | | | | | | [phone] | +--------+--------+ + + + + Reason for Visit Auth/Cert +--------+--------+ + + + + | Status | Reason | Specialty | Diagnoses / | Referred By | Referred To | | | | | Procedures | Contact | Contact | +--------+--------+ + + + + | | | | | | | +--------+--------+ + + + + Encounter Details +--------+ + + + + | Date | Type | Department | Care Team | Description | +--------+ + + + + | 12/17/ | Hospital | [facility] | Simran Osman, | Prostate cancer | | 2017 | Encounter | MED CTR NUCLEAR | [facility] [address] [facility] | ([facility]) | | | | MEDICINE [address] | [facility] | | | | | [address], | [place], [place] | | | | | [place] [address] | [address] | | | | | [phone] | [phone] | | | | | | | [...] | Yes | 0 Standard drinks | 0.0 | At least a 6 pack of | | | or equivalent | | beer a day | + + +---------+ + + + [...] +---------+ + + | acetaminophen | Take 500 mg by | | 0 | 11/30/19 | | | (TYLENOL) 500 mg | mouth. | | | 17 | 7 | | tablet | | | | | | + + + +---------+ + + | naproxen | Take 500 mg by | | 0 | 10/22/19 | | | (NAPROSYN) 500 mg | mouth. | | | 17 | 7 | | tablet | | | | | | + + + +---------+ + + | naproxen | take 1 tablet by | 60 | 5 | 04/16/20 | | | (NAPROSYN) 500 mg | mouth twice a day | tablet | | 16 | 7 | | tablet | WITH BREAKFAST AND | | | | | | | DINNER | | | | | + + + +---------+ + + documented as of this encounter Plan of Treatment Not on filedocumented as of this encounter Procedures + +--------+ + + + | Procedure Name | Priori | Date/Time | Associated Diagnosis | Comments | | | ty | | | | + +--------+ + + + | NM BONE SCAN WHOLE | Routin | 12/17/2016 | Prostate cancer | Results for this | | BODY | e | 2:50 PM | (HCC) | procedure are in the | | | | PDT | | results section. | + +--------+ + + + documented in this encounter Results NM Bone Scan Whole Body (12/17/2016 2:50 PM PDT) + + | Specimen | + + | | + + + + + | Narrative | Performed At | + + + | NUCLEAR MEDICINE WHOLE BODY BONE SCAN:12/17/2016 12:41 PM | [facility] | | CLINICAL HISTORY:prostate cancer with biochemical recurrence now with | | | bone pain, assess for metastic disease COMPARISON:07/18/2014 | | | FINDINGS: To obtain the study 23.7 mCi of technetium 99 labeled MDP is | | | administered followed by delayed whole body scanning. Symmetric | | | moderate increased activity in the acromioclavicular joints | | | bilaterally and at the base of the thumb bilaterally. This has typical | | | appearance of radiotracer distribution secondary to degenerative | | | disease. It is similar to the comparison study. Mildly increased | | | activity in the left knee and at L4-L5, also suggestive of | | | degenerative disease. No other areas of increased radiotracer | | | activity. Previously questioned area of increased radiotracer | | | activity in the right acetabular region is not redemonstrated on this | | | study. No photopenic areas to suggest lytic lesions. Soft tissue | | | background and renal activity are within normal limits IMPRESSION | | | - No scintigraphic evidence of osteoblastic metastatic disease. | | | Dictated and Signed by: Rajesh Snyder MD Electronically signed: | | | 12/17/2016 4:15 PM | | + + + + + | Procedure Note | + + | Frank, Rad Results In - 12/17/2016 4:18 PM PDT NUCLEAR MEDICINE WHOLE BODY BONE | | SCAN:12/17/2016 12:41 PMCLINICAL HISTORY:prostate cancer with biochemical recurrence now | | with bone pain,assess for metastic diseaseCOMPARISON:07/18/2014FINDINGS: To obtain the | | study 23.7 mCi of technetium 99 labeled MDP isadministered followed by delayed whole | | body scanning.Symmetric moderate increased activity in the acromioclavicular | | jointsbilaterally and at the base of the thumb bilaterally. This has typicalappearance | | of radiotracer distribution secondary to degenerative disease. It issimilar to the | | comparison study.Mildly increased activity in the left knee and at L4-L5, also | | suggestive ofdegenerative disease.No other areas of increased radiotracer activity. | | Previously questioned area ofincreased radiotracer activity in the right acetabular | | region is notredemonstrated on this study. No photopenic areas to suggest lytic | | lesions.Soft tissue background and renal activity are within normal limitsIMPRESSION - | | No scintigraphic evidence of osteoblastic metastatic disease.Dictated and Signed by: | | Rajesh Snyder MD Electronically signed: 12/17/2016 4:15 PM | | | |Mildly increased activity in the left knee and at L4-L5, also suggestive of | |degenerative disease. | | | |No other areas of increased radiotracer activity. Previously questioned area of | |increased radiotracer activity in the right acetabular region is not | |redemonstrated on this study. No photopenic areas to suggest lytic lesions. | | | |Soft tissue background and renal activity are within normal limits | | | |IMPRESSION - No scintigraphic evidence of osteoblastic metastatic disease. | | | |Dictated and Signed by: Rajesh Snyder MD | | Electronically signed: 12/17/2016 4:15 PM | + + + +---------+ + [...] prostate | + + documented in this encounter Administered Medications + +--------+ + +------+------+ | Medication Order | MAR | Action | Dose | Rate | Site | | | Action | Date | | | | + +--------+ + +------+------+ | technetium TC-99M medronate | Given | 12/18/19 | 25 | | | | (MDP) injection 25 millicurie 25 | | 17 12:42 | -millicu | | | | -millicurie, Intravenous, ONCE | | PM PDT | que | | | | PRN, Other, Starting 12/17/16 | | | | | | | at 1242, For 1 dose, Nuclear | | | | | | | Medicine | | | | | | + +--------+ + +------+------+ +---+---+ | | | +---+---+ documented in this encounter"
--- OUTSIDE RECORDS SUMMARY | ~2020-06-06 | XMS | Encounter Summary ---
Demographics + + + | Address | [address] | | | [place] [facility] [place] [place] [address] | + + + | Home Phone | | + + + | Preferred Language | Unknown | + + + | Marital Status | Single | + + + | Druze Affiliation | CHR | + + + | Race | White | + + + | Ethnic Group | Not or | + + + Author + + + | Author | [facility] | + + + | Organization | [facility] | + + + | Address | Unknown | + + + | Phone | Unavailable | + + + Support + + +---------+ + | Name | Relationship | Address | Phone | + + +---------+ + | Servando Boyer | ECON | Unknown | | + + +---------+ + Care Team Providers + +------+ + | Care Pit Steward Name | Role | Phone | + +------+ + | Aryan Grossman MD | PCP | | + +------+ + Reason for Visit PROC - Dept/Practice Procedure (Routine) +--------+--------+ + + + + | Status | Reason | Specialty | Diagnoses / | Referred By | Referred To | | | | | Procedures | Contact | Contact | +--------+--------+ + + + + | Closed | | Urology | Diagnoses | Shreves, | Shreves, | | | | | Malignant | Simran A, | Simran A, | | | | | neoplasm of | [address] | | | | | prostate | [address] | | | | | Procedures | [address] | [address] | | | | | [place] | [address] | [place], [place] | | | | | [address] | [place], [place] | [address] | | | | | [place] | [address] | Phone: | | | | | SUSPNSION | Phone: | [phone] | | | | | [address] | [phone] | Fax: | | | | | THR/PRPH/DX | Fax: | [phone] | | | | | INJ,SC/IM | [phone] | | | | | | Lupron | | | | | | | injections | | | +--------+--------+ + + + + Encounter Details +--------+---------+ + + + | Date | Type | Department | Care Team | Description | +--------+---------+ + + + | 12/31/ | Office | [facility] | Rn, [address]ro [address] | Malignant neoplasm | | 2017 | Visit | [address] | [address] | of prostate (HCC) | | | | [place] [facility] | Road [place], [place] | (Primary Dx) | | | | and Healing, | [address] | | | | | Building | | | | | | Floor [place], [place] | | | | | | [address] | | | | | | [phone] | | | +--------+---------+ + + + [...] + + documented as of this encounter Progress Notes Yamila Goyal, ARLETH - 12/31/2016 12:00 PM PDTFormatting of this note might be different fro m the original. Subjective Reason for call or visit: Lupron injection. Objective Data collected: Mnai Garcia is a 51 y.o. male who comes in today for his 1st Lupron injection for his p rostate cancer. Prior to beginning the procedure, patient identity was verified, as well as the procedure t o be performed and the site. All equipment required was ready and available. The patient wa s positioned appropriately. Verbal permission to proceed given by Simran MAN. She is present and available in clinic during the entire visit. Procedure: Lupron 22.5 mg was given intramuscularly into the left upper outer quadrant of his gluteal muscle. Last PSAs: Lab Results Component Value Date PSA 0.75 10/01/2014 PSA 22.07 07/09/2014 Mr. Garcia verbalized agreement and understanding of these instructions and use of Lupron he had no questions upon discharge. Previous contact date: 12/10/16. New or ongoing problem: New. Assessment Nursing Risk Assessment Patient/Family's Target for the stay: Lupron injection. Based on the patient's story, which category of risk matches the patient's concern? (Select at least one): Health Promotion Target (e.g. Prevention, proactive lifestyle changes): Successful treat ment with Lupron. Patient's condition based on current conversation is: Moderately unstable: Complex or changing risk that needs future follow up or additional plan to address unstable patient condition. Plan A: Outlined in recommendations. Plan B: Fol low up actions or plan if Plan A unlikely to re solve risk.. Plan Nursing recommendations/education/interventions for identified risk: Plan A: Mr. Garcia will be back in 3 months for a repeat PSA as well as a Lupron injection. He was instructed to call or contact us if he has any questions or concerns related to his Lupron injection today.. Nursing Evaluation: Yes - Verbalizes or demonstrates understanding of education provided. Yes - Patient was active participant/motivated. Yes - Patient asks clarifying questions about plan. Notes to Healthcare Team: Notified: PA/TARGET AIRCRAFT CONTROLLER via verbal. documented in this en counter Plan of Treatment Not on filedocumented as of this encounter Visit Diagnoses + + | Diagnosis | + + | Malignant neoplasm of prostate (HCC) - Primary Malignant neoplasm of prostate | + + documented in this encounter Administered Medications + +--------+ +---------+------+---------+ | Medication Order | MAR | Action | Dose | Rate | Site | | | Action | Date | | | | + +--------+ +---------+------+---------+ | leuprolide IM (LUPRON DEPOT) | Given | 01/01/20 | 22.5 mg | | Left | | injection 22.5 mg 22.5 mg, | | 17 11:25 | | | Upper | | intramuscular, ONCE, 1 dose, Fri | | AM PDT | | | Quad. | | 12/31/16 at 1130 | | | | | Gluteus | + +--------+ +---------+------+---------+ +---+---+ | | | +---+---+ documented in this encounter"
--- OUTSIDE RECORDS SUMMARY | ~2020-06-06 | XMS | Encounter Summary ---
Demographics + + + | Address | NEED ADDRESS | | | [place] [address] | + + + | Home Phone | | + + + | Preferred Language | Unknown | + + + | Marital Status | Single | + + + | Jew Affiliation | Unknown | + + + | Race | White | + + + | Ethnic Group | Not or | + + + Author + + + | Author | [facility] | | | and [place] | + + + | Organization | [facility] | | | and [...] Hector Garcia | ECON | [place] [address] | | + + + + + Care Team Providers + +------+ + | Care Tap And Die Maker Technician Name | Role | Phone | + +------+ + | Loi Frausto PA-C | PCP | | + +------+ + Encounter Details +--------+ + + + + | Date | Type | Department | Care Team | Description | +--------+ + + + + | 06/28/ | Hospital | [facility] | De Guerra | Bilateral shoulder | | 2019 | Encounter | [facility] | [address] | pain, unspecified | | | | [address] [place] | [address] [place] | chronicity | | | | [place] | [place] [address] | | | | | [address] | [phone] | | | | | [phone] | | | +--------+ + + + + Social History + + + +--------+ + | Tobacco Use | Types | Packs/Day | Years | Date | | | | | Used | | + + + +--------+ + | Former Smoker | Cigarettes | 1 | 21 | 05/03/1998 - | | | | | | 05/07/2019 | + + + +--------+ + + +---+---+---+ | Smokeless Tobacco: | | | | | Never Used | | | | + +---+---+---+ + + +---------+ + | Alcohol Use | Drinks/Week | oz/Week | Comments | + + +---------+ + | No | 0 Standard drinks | 0.0 | | | | or equivalent | | | + + +---------+ + + + + | Sex Assigned at | Date Recorded | | | | + + + | Not on file | | + + + documented as of this encounter Functional Status + + + + | Functional Status | Response | Date of Assessment | + + + + | Are you deaf or do you have serious | No | 05/11/2019 | | difficulty hearing? | | | + + + + | Are you blind or do you have serious | No | 05/11/2019 | | difficulty seeing, even when wearing | | | | glasses? | | | + + + + | Do you have serious difficulty walking or | Yes | 05/11/2019 | | climbing stairs? (5 years old or older) | | | + + + + | Do you have difficulty dressing or bathing? | Yes | 05/11/2019 | | (5 years old or older) | | | + + + + | Because of a physical, mental, or emotional | Yes | 05/11/2019 | | condition, do you have difficulty doing | | | | errands alone such as visiting a doctor's | | | | office or shopping? [15 years old or | | | | older)] | | | + + + + + + + + | Cognitive Status | Response | Date of Assessment | + + + + | Because of a physical, mental, or emotional | Yes | 05/11/2019 | | condition, do you have serious difficulty | | | | concentrating, remembering, or making | | | | decisions? (5 years old or older) | | | + + + + documented as of this [...] + + + +---------+ + + | atenolol | Take 100 mg by mouth | | 0 | 05/08/20 | | | (TENORMIN) 50 mg | Daily. | | | 18 | | | tablet | | | | | | + + + +---------+ + + | cyclobenzaprine | Take 1 tablet by | 90 | 1 | 05/11/20 | | | (FLEXERIL) 10 mg | mouth 3 times daily | tablet | | 19 | | | tablet | as needed for Muscle | | | | | | | spasms. | | | | | + + + +---------+ + + | docusate sodium | Take 100 mg by mouth | 60 | 3 | 05/11/20 | | | (COLACE) 100 MG | 2 times daily. | capsule | | 19 | | | capsule | | | | | | + + + +---------+ + + | DULoxetine | Take 60 mg by mouth | | 0 | 06/08/20 | | | (CYMBALTA) [address] | Daily. | | | 19 | | | capsule | | | | | | + + + +---------+ + + | fluticasone | 1 spray by Nasal | | 0 | 05/08/20 | | | (FLONASE) 50 | route as needed. | | | 18 | | | mcg/nasal spray | | | | | | + + + +---------+ + + | gabapentin | take 1 capsule by | | 0 | 08/23/20 | | | (NEURONTIN) 300 mg | mouth three times a | | | 18 | | | capsule | day if needed for | | | | | | | pain | | | | | + + + +---------+ + + | gabapentin | Take 600 mg by mouth | | 0 | 05/30/20 | | | (NEURONTIN) 600 MG | 2 times daily. | | | 19 | | | tablet | | | [...] + + + +---------+ + + | oxyCODONE | Take 0.5-3 tablets | 90 | 0 | 05/11/20 | | | (ROXICODONE) 5 mg | by mouth every 4 | tablet | | 19 | | | tablet | hours as needed for | | | | | | | Pain. | | | | | + + + +---------+ + + | pravastatin | take 1 tablet by | | 0 | 05/10/20 | | | (PRAVACHOL) 40 MG | mouth every evening | | | 17 | | | tablet | | | | | | + + + +---------+ + + | RA ACETAMINOPHEN | take 2 tablet by | | 0 | 08/09/20 | | | EX ST 500 MG tablet | mouth every 6 hours | | | 18 | | | | if needed for | | | | | | | MODERATE PAIN | | | | | + + [...] | + +--------+ + + + | XR SHOULDER LEFT 2 + | Routin | 06/28/2019 | Bilateral shoulder | Results for this | | VW | e | 3:03 PM | pain, unspecified | procedure are in the | | | | PDT | chronicity | results section. | + +--------+ + + + documented in this encounter Results XR Shoulder Left 2 + Vw (06/28/2019 3:03 PM PDT) + + | Specimen | + + | | + + + + + | Narrative | Performed At | + + + | XR SHOULDER LEFT 2 + VW 06/28/2019 3:03 PM HISTORY: Left shoulder | [facility] | | pain. COMPARISON: None. FINDINGS: There are no acute osseous | | | findings. Moderate degenerative changes are present at the AC joint. | | | There are minimal degenerative changes of the glenohumeral joint. | | | Bone mineralization is normal. Visualized chest shows no acute | | | findings. Soft tissue structures are unremarkable. IMPRESSION - | | | Degenerative changes as described above. Dictated and Signed by: | | | Horace Galvez MD Electronically signed: 06/28/2019 3:08 PM | | + + + + + | Procedure Note | + + | Frank, Rad Results In - 06/28/2019 3:12 PM PDT XR SHOULDER LEFT 2 + VW 06/28/2019 3:03 | | PMHISTORY: Left shoulder pain.COMPARISON: None.FINDINGS:There are no acute osseous | | findings. Moderate degenerative changes are presentat the AC joint. There are minimal | | degenerative changes of the glenohumeraljoint. Bone mineralization is normal. Visualized | | chest shows no acute findings.Soft tissue structures are unremarkable. IMPRESSION | | -Degenerative changes as described above.Dictated and Signed by: Horace Galvez MD | | Electronically signed: 06/28/2019 3:08 PM | |There are no acute osseous findings. Moderate degenerative changes are present | |at the AC joint. There are minimal degenerative changes of the glenohumeral | |joint. Bone mineralization is normal. Visualized chest shows no acute findings. | |Soft tissue structures are unremarkable. | | | |IMPRESSION - | |Degenerative changes as described above. | | | |Dictated and Signed by: Horace Galvez MD | | Electronically signed: 06/28/2019 3:08 PM | + + + +---------+ + + | Performing | Address | City/State/Zipcode | Phone Number | | Organization | | | | + +---------+ + + | [facility] | | | | + +---------+ + + documented in this encounter Visit Diagnoses + + | Diagnosis | + + | Bilateral shoulder pain, unspecified chronicity | + + documented in this encounter"
--- OUTSIDE RECORDS SUMMARY | ~2020-06-06 | XMS | Encounter Summary ---
Demographics + + + | Address | NEED ADDRESS | | | [place] [address] | + + + | Home Phone | | + + + | Preferred Language | Unknown | + + + | Marital Status | Single | + + + | Anglican Affiliation | Unknown | + + + | Race | White | + + + | Ethnic Group | Not or | + + + Author + + + | Author | [facility] | | | and [place] | + + + | Organization | [facility] | | | and [...] Hector Garcia | ECON | [place] [address] | | + + + + + Care Team Providers + +------+ + | Care Bookstore Clerk Name | Role | Phone | + +------+ + PCP | Unavailable | + +------+ + Encounter Details +--------+ + + + + | Date | Type | Department | Care Team | Description | +--------+ + + + + | 06/24/ | Hospital | [facility] | | | | 2002 | Encounter | [facility] | | | | | | [address] | | | | | | [place] | | | | | | [address] | | | | | | [phone] | | | +--------+ + + + [...]
--- OUTSIDE RECORDS SUMMARY | ~2020-06-06 | XMS | Encounter Summary ---
Demographics + + + | Address | NEED ADDRESS | | | [place] [address] | + + + | Home Phone | | + + + | Preferred Language | Unknown | + + + | Marital Status | Single | + + + | Lutheran Affiliation | Unknown | + + + | Race | White | + + + | Ethnic Group | Not or | + + + Author + + + | Author | [facility] | | | and [place] | + + + | Organization | [facility] | | | [...] + | Hector Garcia | ECON | [place] [address] | | + + + + + Care Team Providers + +------+ + | Care Crisis Worker Name | Role | Phone | + [...] +--------+ + + + + + | Denied | Specialty | Neurosurgery | Diagnoses | Grider, | [facility] | | | Services | | Cervical | Antony Powell MD | Neurosurgery | | | Required | | radiculopath | [address] | | | | | y | [address] | [address] | | | | | | [place], | [place], | | | | | | [place] [address] | [place] [address] | | | | | | Phone: | Phone: | | | | | | [phone] | [phone] | | | | | | Fax: | Fax: | | | | | | [phone] | [phone] | +--------+ + + + + + Reason for Visit + +--------+ + | Reason | Onset | Comments | | | Date | | + +--------+ + | Results, Imaging | 12/01/ | | | | 2017 | | + +--------+ + Encounter Details +--------+ + + + + | Date | Type | Department | Care Team | Description | +--------+ + + + + | 12/01/ | Telephone | [facility] | Antony Grider, | Results, Imaging | | 2018 | | PHYSIATRY [address] | MD [address] | | | | | [address] | [place] | | | | | [place] | [address] | | | | | [address] | | | | | | [phone] | | | +--------+ + + + [...] this encounter Miscellaneous Notes Telephone Encounter - Emeli Redding Clock Smith - 12/01/2017 2:57 PM PSTCalle d to inform Mnai Garcia of imaging results. Mani Garcia verbalized understanding Sadie ctronically signed by Antonieta Streeter at 12/01/2017 3:02 PM PSTTeleph one Encounter - Emeli Redding Medical Assistant - 12/01/2017 2:57 PM PST----- Messag e from Antony Grider MD sent at 11/30/2017 9:49 PST ----- Abigail, Please let Mani Pedroza Jose know that I have reviewed his neck MRI. The MRI reveals arthriti c changes which are likely contributing to his symptoms in the left upper extremity. We soumya l review his imaging at future appointment. I would like him to see neurosurgery. Please r skylar neurosurgery consult. Thank you, Antony Grider MD (Jr.) ----- Message ----- From: Frank, Rad Results In Sent: 11/29/2017 19:46 To: Antony Grider MD do cumented in this encounter Plan of Treatment + + +--------+ + + | Name | Type | Priori | Associated Diagnoses | Order Schedule | | | | ty | | | + + +--------+ + + | * [facility] | Outpatient | Routin | Cervical | Ordered: 12/01/2017 | | Neurosurgery - AMB | Referral | e | radiculopathy | | | Referral | | | | | + + +--------+ + + documented as of this encounter Visit Diagnoses + + | Diagnosis | + + | Cervical radiculopathy - Primary Brachial neuritis or radiculitis nos | + + documented in this encounter"
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
--- OUTSIDE RECORDS SUMMARY | ~2020-06-06 | XMS | Encounter Summary ---
Demographics + + + | Address | NEED ADDRESS | | | [place] [address] | + + + | Home Phone | | + + + | Preferred Language | Unknown | + + + | Marital Status | Single | + + + | Baptist Affiliation | Unknown | + + + | Race | White | + + + | Ethnic Group | Not or | + + + Author + + + | Author | [facility] | | | and [place] | + + + | Organization | [facility] | | [...] Hector Garcia | ECON | [place] [address] | | + + + + + Care Team Providers + +------+ + | Care Brake Tester Name | Role | Phone | + +------+ + | Loi Frausto PA-C | PCP | | + +------+ + Reason for Visit +--------+--------+ + | Reason | Onset | Comments | | | Date | | +--------+--------+ + | Other | 03/09/ | | | | 2017 | | +--------+--------+ + Encounter Details +--------+ + + + + | Date | Type | Department | Care Team | Description | +--------+ + + + + | 03/09/ | Telephone | [facility] | Zeeshan Hawkins, | Other | | 2018 | | [address] | MD [address] | | | | | [place] | [place] | | | | | [address] | [address] | | | | | [phone] | | | +--------+ + + + [...] this encounter Miscellaneous Notes Telephone Encounter - Zeeshan Hawkins MD - 03/09/2018 2:12 PM PDTYes, please send copy to whomever his PCP is. elephone Encounter - Ileana Castillo RN - 03/09/2018 10:24 AM PDTLoi Frausto is is PCP listed. Do you want progress note sent to him? Please advise. elephone Encounter - Odette Hernandez - 03/09/2018 10:15 AM PDTI have called all number for this provider and every place I have ca lled they state she is no longer practicing at their location. Unable to locate this provide r. elephone Encounte r - Odette Hernandez - 03/09/2018 10:15 AM PDT----- Message from Ileana Castillo, RN s ent at 02/27/2018 14:38 PDT ----- Please cc: 02/22/18 dictation to Shayy Clark, ANP documented in this encounter Plan of Treatment Not on filedocumented as of this encounter Visit Diagnoses Not on filedocumented in this encounter"
--- OUTSIDE RECORDS SUMMARY | ~2020-06-06 | XMS | Encounter Summary ---
Demographics + + + | Address | NEED ADDRESS | | | [place] [address] | + + + | Home Phone | | + + + | Preferred Language | Unknown | + + + | Marital Status | Single | + + + | Restorationist Affiliation | Unknown | + + + | Race | White | + + + | Ethnic Group | Not or | + + + Author + + + | Author | [facility] | | | and [place] | + + + | Organization | [facility] | | | and [...] + | Hector Garcia | ECON | [place] [address] | | + + + + + Care Team Providers + +------+ + | Care Associate Professor Of Forestry Name | Role | Phone | + +------+ + | Loi Frausto PA-C | PCP | | + +------+ + Reason for Visit Auth/Cert +--------+--------+ + + + + | Status | Reason | Specialty | Diagnoses / | Referred By | Referred To | | | | | Procedures | Contact | Contact | +--------+--------+ + + + + | | | | Diagnoses | | Schlitt, | | | | | 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 Ashley MD | | | | | claudication | | [address] | | | | | | [address] | | | | | Displacement | | [address] [place] | | | | | of lumbar | | [place], [place] | | | | | intervertebr | | [address] Phone: | | | | | al disc | | [phone] | | | | | 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 | | [phone] | | | | | Muscle | | | | | | | wasting and | | | | | | | atrophy, | | | | | | | NEC, unsp | | | | | | | thigh | | | | | | | Procedures | | | | | | | [place] LAMNOTMY | | | | | | | INCL | | | | | | | W/DCMPRSN | | | | | | | NRV ROOT 1 | | | | | | | INTRSPC | | | | | | | LUMBR | | | | | | | LAMINEC/FACE | | | | | | | TECT/FORAMIN | | | | | | | ,LUMBAR 1 | | | | | | | SEG [place] | | | | | | | LAMINEC/FACE | | | | | | | TECT/FORAMIN | | | | | | | ,EACH ADDNL | | | | | | | Right | | | | | | | L2-L3, | | | | | | | L3-L4, L4-L5 | | | | | | | Laminectomy | | | | | | | with | | | | | | | Discectomy | | | | | | | at L2-L3 | | | +--------+--------+ + + + + Encounter Details +--------+ + + + + | Date | Type | Department | Care Team | Description | +--------+ + + + + | 05/08/ | Hospital | [facility] | [place] | | | 2019 | Encounter | MED CTR XRAY [address] | | | | | [place] | [address] [place] | | | | | [place] [address] | [place] [address] | | | | | [phone] | [phone] | | | | | | | | +--------+ + + + + Social History + + + +--------+ + | Tobacco Use | Types | Packs/Day | Years | Date | | | | | Used | | + + + +--------+ + | Heavy Tobacco Smoker | Cigarettes | 1 | 21 | Started: 05/03/1998 | + + + +--------+ + + [...] + +---------+ + + | amitriptyline | Start with 1 tablet | | 0 | 12/12/19 | | | (ELAVIL) 10 mg | po HS. Then increase | | | 19 | 9 | | tablet | to up 3 tablets po | | | | | | | HS PRN | | | | | + + + +---------+ + + | cyclobenzaprine | take 1 tablet by | | 0 | 03/14/20 | | | (FLEXERIL) 10 mg | mouth three times a | | | 18 | 9 | | tablet | day if needed for | | | | | | | muscle spasm | | | | | + + [...] | + +--------+ + + + | ZAC POP STATS NO | Routin | 05/08/2019 | | Results for this | | CHARGE | e | 12:42 PM | | procedure are in the | | | | PDT | | results section. | + +--------+ + + + documented in this encounter Results ZAC C-Lorenzo Stats No Charge (05/08/2019 12:42 PM PDT) + + | Specimen | + + | | + + + + + | Narrative | Performed At | + + + | This exam has been auto-finalized. It was entered for statistical | [facility] | | purposes only. | | + + + + +---------+ + + | Performing | Address | City/State/Zipcode | Phone Number | | Organization | | | | + +---------+ + + | [facility] | | | | + +---------+ + + documented in this encounter Visit Diagnoses Not on filedocumented in this encounter"
--- OUTSIDE RECORDS SUMMARY | ~2020-06-06 | XMS | Encounter Summary ---
Demographics + + + | Address | NEED ADDRESS | | | [place] [address] | + + + | Home Phone | | + + + | Preferred Language | Unknown | + + + | Marital Status | Single | + + + | Voodoo Affiliation | Unknown | + + + | Race | White | + + + | Ethnic Group | Not or | + + + Author + + + | Author | [facility] | | | and [place] | + + + | Organization | [facility] | | [...] Hector Garcia | ECON | [place] [address] | | + + + + + Care Team Providers + +------+ + | Care Firmware Developer Name | Role | Phone | + +------+ + | Aryan Grossman MD | PCP | | + +------+ + Encounter Details +--------+ + + + + | Date | Type | Department | Care Team | Description | +--------+ + + + + | 02/20/ | Hospital | [facility] | Aryan Grossman, | Prostate cancer | | 2014 | Encounter | MED CTR LABORATORY | MD [address] | ([facility]) | | | | [address] [place] | [address] [place], | | | | | [place], [place] | [place] [address] | | | | | [address] | [phone] | | | | | [phone] | | | +--------+ + + + + Social History + +-------+ +--------+------+ | Tobacco Use | Types | Packs/Day | Years | Date | | | | | Used | | + +-------+ +--------+------+ | Current Every Day | | 1 | 24 | | | Smoker | | | | | + +-------+ +--------+------+ + +---+---+---+ | Smokeless Tobacco: | | | | | Never Used | | | | + +---+---+---+ + + +---------+ + | Alcohol Use | Drinks/Week | oz/Week | Comments | + + +---------+ + | Yes | 4-5 Shots of | 0.0 | whiskey drinks daily | | | liquor | | | + + +---------+ + [...] + + +---------+ + + | aspirin (ASPIRIN | Take 1 tablet by | 90 | 3 | 11/12/19 | | | ADULT LOW STRENGTH) | mouth Daily. | tablet | | 14 | 6 | | 81 MG EC | | | | | | | tabletIndications: | | | | | | | HTN (hypertension) | | | | | | + + + +---------+ + + | ciprofloxacin | Take 1 tab po 1 hour | 6 | 0 | 12/25/19 | | | (CIPRO) 500 mg | prior to biopsy; | tablet | | 14 | 4 | | tablet | then take 1 tab po | | | | | | | every 12 hours | | | | | | | thereafter | | | | | + + + +---------+ + + | escitalopram | Take 1 tablet by | 90 | 0 | 12/13/19 | | | (LEXAPRO) 10 mg | mouth Daily. | tablet | | 14 | 4 | | tabletIndications: | | | | | | | Stress reaction, | | | | | | | Depression | | | | | | + + + +---------+ + + | ketoconazole | Apply to scalp area | 30 g | 1 | 11/12/19 | | | (NIZORAL) 2% | daily to twice daily | | | 14 | 4 | | creamIndications: | for up to 3 weeks | | | | | | Alopecia | | | | | | + + + +---------+ + + | lisinopril | Take 1 tablet by | 90 | 0 | 12/13/19 | | | (PRINIVIL, ZESTRIL) | mouth Daily. | tablet | | 14 | 4 | | 10 mg | | | | | | | tabletIndications: | | | | | | | HTN (hypertension) | | | | | | + + + +---------+ + + | naproxen | Take 1 tablet by | 30 | 0 | 12/11/19 | | | (NAPROSYN) 500 mg | mouth 2 times daily | tablet | | 14 | 5 | | tabletIndications: | (with breakfast & | | | | | | Sprain of right | dinner). | | | | | | elbow, Place of | | | | | | | occurrence, | | | | | | | industrial places | | | | | | | and premises | | | | | | + + + +---------+ + + documented as of this encounter Plan of Treatment Not on filedocumented as of this encounter Procedures + +--------+ + + + | Procedure Name | Priori | Date/Time | Associated Diagnosis | Comments | | | ty | | | | + +--------+ + + + | TYPE AND SCREEN | Routin | 02/20/2014 | Prostate cancer | Results for this | | | e | 3:01 PM | (HCC) | procedure are in the | | | | PDT | | results section. | + +--------+ + + + documented in this encounter Results Type and Screen (02/20/2014 3:01 PM PDT) + + + + + + | Component | Value | Ref Range | Performed | Pathologist | | | | | At | Signature | + + + + + + | ABO | B | | [facility] | | | | [facility] | | | | | [facility] | | | | | [facility] - | | | | | | [facility]LOOD BANK | | + + + + + + | Rh Type | Positive | | [facility] | | | | [facility] | | | | | | [facility] | | | | | [facility] - | | | | | | [facility]LOOD BANK | | + + + + + + | Antibody | Negative | | [facility] | | | Screen | | | [facility] | | | | | | [facility] | | | | | | [facility] - | | | | | | BLOOD BANK | | + + + + + + + + | Specimen | + + | Blood specimen | | (specimen) | + + + + + + + | Performing | Address | City/State/Zipcode | Phone Number | | Organization | | | | + + + + + | [facility] | [address] | [place] | | | [facility] | | [address] | | | - BLOOD BANK | | | | + + + + + documented in this encounter Visit Diagnoses + + | Diagnosis | + + | Prostate cancer (HCC) Malignant neoplasm of prostate | + + documented in this encounter"
--- OUTSIDE RECORDS SUMMARY | ~2020-06-06 | XMS | Encounter Summary ---
Demographics + + + | Address | NEED ADDRESS | | | [place] [address] | + + + | Home Phone | | + + + | Preferred Language | Unknown | + + + | Marital Status | Single | + + + | Sabianist Affiliation | Unknown | + + + | Race | White | + + + | Ethnic Group | Not or | + + + Author + + + | Author | [facility] | | | and [place] | + + + | Organization | [facility] | | | [...] Hector Garcia | ECON | [place] [address] | | + + + + + Care Team Providers + +------+ + | Care Ecological Modeler Name | Role | Phone | + +------+ + | Aryan Grossman MD | PCP | | + +------+ + Reason for Visit +---------+ + | Reason | Comments | +---------+ + | Results | labs | +---------+ + | Fatigue | Progressively worse | +---------+ + Encounter Details +--------+---------+ + + + | Date | Type | Department | Care Team | Description | +--------+---------+ + + + | 06/10/ | Office | [facility] | Aryan Grossman, | Prostate cancer | | 2014 | Visit | [address] | [address] | ([facility]) (Primary Dx); | | | | [address] [place], | [address] [place], | Depression | | | | [place] [address] | [place] [address] | | | | | [phone] | [phone] | | | | | | | | +--------+---------+ + + + Social History + +-------+ +--------+------+ | Tobacco Use | Types | Packs/Day | Years | Date | | | | | Used | | + +-------+ +--------+------+ | Current Every Day | | 0.5 | 24 | | | Smoker | | | | | + +-------+ +--------+------+ + +---+---+---+ | Smokeless Tobacco: | | | | | Never Used | | | | + +---+---+---+ + + +---------+ + | Alcohol Use | Drinks/Week | oz/Week | Comments | + + +---------+ + | Yes | | 0.0 | States not drinking | | | | | at all | + + +---------+ + + + [...] + + + | Blood Pressure | 108/80 | 06/10/2014 2:15 PM | | | | | PDT | | + + + + + | Pulse | 85 | 06/10/2014 2:15 PM | | | | | PDT | | + + + + + | Temperature | 36.7 C (98.1 F) | 06/10/2014 2:15 PM | | | | | PDT | | + + + + + | Respiratory Rate | 16 | 06/10/2014 2:15 PM | | | | | PDT | | + + + + + | Oxygen Saturation | 97% | 06/10/2014 2:15 PM | | | | | PDT | | + + + + + | Inhaled Oxygen | - | - | | | Concentration | | | | + + + + + | Weight | 91.6 kg (202 lb) | 06/10/2014 2:15 PM | | | | | PDT | | + + + + + | Height | 175.3 cm (5' 9") | 06/10/2014 2:15 PM | | | | | PDT | | + + + + + | Body Mass Index | 29.83 | 06/10/2014 2:15 PM | | | | | PDT | | + + + + + documented in this encounter Progress Notes Aryan Grossman MD - 06/10/2014 2:49 PM PDTFormatting of this note might be different f rom the original. Subjective: Patient ID: Mani Garcia is a 49 y.o. male. HPI Prostate cancer, He has followed with Dr Hawkins in the past and is now back in the area [facility] where he did not have any substantial treatment. He has an upcoming appointment w quinn Hawkins. He has no energy, poor sleep etc. His urine flow is actually better. He is taking the Bicalutamide which he was prescribed by His Urologist in [place]. Arthralgias, Ankles, knees, Hands wrists, shoulders elbows and back. He is still smoking a 1/2 ppd. Shoulders ankles and knees seem to bother him the worst. He is not taking an antiinflammat ory for it. Naproxyn is taking the edge off of his joint pain. Depression and Anxiety, He is worried all the time about something. He had loss of motiva tion. Some Fatigue. Moodiness, Some crying. Guilt. Denies HI or SI. He took the lexapr o in the past but him dizzy. He is doing better on the zoloft and is getting ready to up th e dose. He is sleeping better now. He has quit drinking. 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 PMH: HTN Hyperlipidemia Alcoholism PSH: Right thumb 2008 Lumbar Diskectomy 1992 Fhx: Mom 64 Ovarian Cancer Dad 50 of MS complications Sister 54, recurrent lymphoma,. First diagnosed with cancer in 's Shx: Born in [facility], 16 year old son Lives in [place] since 2012, Grew up in [employer] [place]. [facility] Drinks 5 drinks of whisky per [...] no joint swelling and No ar thralgias. some joint pain Skin: Neg for color change,no rash and No wounds, no Strange moles Neurological: Neg for dizziness, no Weakness,no light-headedness, no numbness and no headaches. Hematological: Neg for adenopathy. Does not bruise/bleed easily. Psychiatric/Behavioral: Neg for suicidal ideas,no confusion and no agitation. no Depression, some anxiety,no sleep problems Objective: Physical Exam Heent, WNL, No carotid bruit Chest CTAB Heart RR&R /s M Abd S,NT,ND,BS+ Ext, no CCor E Neuro Non-focal Lymph, no cervical, axillary, inguinal adenopathy Musculoskeletal, no gross deformity or loss or range of motion Skin, no gross lesions Assessment: 1. Prostate cancer (HCC) 2. Depression Plan: He looks and feels overall improved. RTC 2 months. He will see Dr Hawkins. documented in this encounter Miscellaneous Notes Miscellaneous - ONBASE SCAN [facility] - 08/05/2014 12:00 AM PST lan of Care - ONBASE SCAN [facility] - 08/01/2014 12:00 AM PSTElec tronically signed by Paul Shanks at 08/07/2014 9:36 AM PSTdocumented in this encounter Plan of Treatment Not on filedocumented as of this encounter Visit Diagnoses + + | Diagnosis | + + | Prostate cancer (HCC) - Primary Malignant neoplasm of prostate | + + | Depression Depressive disorder, not elsewhere classified | + + documented in this encounter
--- OUTSIDE RECORDS SUMMARY | ~2020-06-06 | XMS | Encounter Summary ---
Demographics + + + | Address | [address] | | | [place] [address] | + + + | Home Phone | | + + + | Preferred Language | Unknown | + + + | Marital Status | Single | + + + | Anabaptist Affiliation | CHR | + + + | Race | White | + + + | Ethnic Group | Not or | + + + Author + + + | Author | [facility] [employer] [facility] | + + + | Organization | [facility] | [...] Team Providers + +------+ + | Care Electric Accounting Machine Operator Name | Role | Phone | + +------+ + | Aryan Grossman MD | PCP | | + +------+ + Encounter Details +--------+------+ + + + | Date | Type | Department | Care Team | Description | +--------+------+ + + + | 10/24/ | Lab | Laboratory at [facility] | | Prostate cancer | | 2018 | | [address] | | ([facility]) | | | | [facility] | | | | | | and Healing, | | | | | | [address] | | | | | | [place], [place] | | | | | | [address] | | | | | | [phone] | | | +--------+------+ + + + [...] | + +--------+ + + + | [facility] PSA TOTAL, | Routin | 10/24/2017 | Prostate cancer | Results for this | | MONITORING | e | 10:30 AM | (HCC) | procedure are in the | | | | PST | | results section. | + +--------+ + + + documented in this encounter Results [facility] PSA TOTAL, MONITORING (10/24/2017 10:30 AM PST) + +-------+ + + + | Component | Value | Ref Range | Performed | Pathologist | | | | | At | Signature | + +-------+ + + + | PSA TOTAL | 0.18 | ng/mL | [facility] | | | MONITORING | | | LABORATORY | | | | | | SERVICES, | | | | | | [facility] | | | | | | [...] | + + + + + | [employer] | [address] | [place] [address] | | | SERVICES, [place] [facility] | | | | | HE[facility] + HEALING | | | | + + + + + documented in this encounter Visit Diagnoses + + | Diagnosis | + + | Prostate cancer (HCC) Malignant neoplasm of prostate | + + documented in this encounter"
--- OUTSIDE RECORDS SUMMARY | ~2020-06-06 | XMS | Encounter Summary ---
Demographics + + + | Address | NEED ADDRESS | | | [place] [address] | + + + | Home Phone | | + + + | Preferred Language | Unknown | + + + | Marital Status | Single | + + + | Mandaen Affiliation | Unknown | + + + | Race | White | + + + | Ethnic Group | Not or | + + + Author + + + | Author | [facility] | | | and [place] | + + + | Organization | [facility] | | | [...] Hector Garcia | ECON | [place] [address] | | + + + + + Care Team Providers + +------+ + | Care Gate Cutter Name | Role | Phone | + +------+ + | Loi Frausto PA-C | PCP | | + +------+ + Reason for Visit + + + | Reason | Comments | + + + | Pain Management | Preop | + + + Encounter Details +--------+ + + + + | Date | Type | Department | Care Team | Description | +--------+ + + + + | 05/04/ | Documentati | [facility] [place] | Samantha Davis CMA | Pain Management | | 2019 | on | NEUROSURGERY [address] | | (Preop ) | | | | [address] | | | | | | [place], [place] | | | | | | [address] | | | | | | [phone] | | | +--------+ + + + [...] documented as of this encounter Progress Notes Samantha Davis CMA - 05/04/2019 1:20 PM PDT Outpatient Morphine Equivalent Daily Dose (MEDD) None The following information was obtained from [email or web address]://[email or web address] .do on 05/04/19. [place] [employer] MACHINIST 2ND SHIFT checked, no results. documented in this enco unter Plan of Treatment Not on filedocumented as of this encounter Visit Diagnoses Not on filedocumented in this encounter"
--- OUTSIDE RECORDS SUMMARY | ~2020-06-06 | XMS | Encounter Summary ---
Demographics + + + | Address | NEED ADDRESS | | | [place] [address] | + + + | Home Phone | | + + + | Preferred Language | Unknown | + + + | Marital Status | Single | + + + | Jewish Affiliation | Unknown | + + + | Race | White | + + + | Ethnic Group | Not or | + + + Author + + + | Author | [facility] | | | and [place] | + + + | Organization | [facility] | | | and [...] Hector Garcia | ECON | [place] [address] | | + + + + + Care Team Providers + +------+ + | Care Spanish Interpreter/Translator Name | Role | Phone | + +------+ + | Aryan Grossman MD | PCP | | + +------+ + Encounter Details +--------+---------+ + + + | Date | Type | Department | Care Team | Description | +--------+---------+ + + + | 01/16/ | Office | [facility] [place] | Theo Green | Epicondylitis, | | 2013 | Visit | OCCUPATIONAL HEALTH | MD Aryan Need | lateral, right | | | | [facility] [address] | updated address | (Primary Dx); Place | | | | [address] [place] | | of occurrence, | | | | [place] | | industrial places | | | | [address] | | and premises | | | | [phone] | | | +--------+---------+ + + + [...] documented as of this encounter Progress Notes Theo Green MD - 01/14/2014 12:28 PM PDTClaim number: [id number] Date of injury: 10/09/13 Employer: [employer] Guarantor: [employer] This dictation is documentation of medical consultation with Yamila Irena claims adjuste dakota for [employer], at her request following review of medical records that were forward ed to me including a video of injured worker's work responsibilities. MS. Osborn indicated t hat they had hoped to have an independent medical examination be performed on the injured wo rker but do to unrelated medical circumstances of the injured worker this was not going to b e achievable in the information that I can provide that would be useful in claims management responsibilities. At the conclusion of our 15 minute phone interview, the casualty insurance claim adjuster indicated that she would be forwarding a letter of understanding reflecting the information discussed. docume nted in this encounter Plan of Treatment Not on filedocumented as of this encounter Visit Diagnoses + + | Diagnosis | + + | Epicondylitis, lateral, right - Primary | + + | Place of occurrence, industrial places and premises | + + documented in this encounter"
--- OUTSIDE RECORDS SUMMARY | ~2020-06-06 | XMS | Encounter Summary ---
Demographics + + + | Address | NEED ADDRESS | | | [place] [address] | + + + | Home Phone [...] Author + + + | Author | [facility] | | | and [place] | + + + | Organization | [facility] | | | [...] Hector Garcia | ECON | [place] [address] | | + + + + + Care Team Providers + +------+ + | Care Appellate Court Judge Name | Role | Phone | + +------+ + | Aryan Grossman MD | PCP | | + +------+ + Reason for Visit + + + | Reason | Comments | + + + | ED Follow-up | | + + + | Fall | patient was drinking | + + + | Results | | + + + Encounter Details +--------+---------+ + + + | Date | Type | Department | Care Team | Description | +--------+---------+ + + + | 01/07/ | Office | [facility] | Aryan Grossman, | Alopecia (Primary | | 2016 | Visit | MEDICINE [facility] | [address] | Dx); Depression with | | | | [address] [place], | [address] [place], | anxiety; Alcoholism | | | | [place] [address] | [place] [address] | ([facility]) | | | | [phone] | [phone] | | | | | | | [...] + + + | Blood Pressure | 128/80 | 01/08/2016 11:38 AM | | | | | PDT | | + + + + + | Pulse | 85 | 01/08/2016 11:38 AM | | | | | PDT | | + + + + + | Temperature | 36.2 C (97.2 F) | 01/08/2016 11:38 AM | | | | | PDT | | + + + + + | Respiratory Rate | 16 | 01/08/2016 11:38 AM | | | | | PDT | | + + + + + | Oxygen Saturation | 98% | 01/08/2016 11:38 AM | | | | | PDT | | + + + + + | Inhaled Oxygen | - | - | | | Concentration | | | | + + + + + | Weight | 90.7 kg (200 lb) | 01/08/2016 11:38 AM | | | | | PDT | | + + + + + | Height | 175.3 cm (5' 9") | 01/08/2016 11:38 AM | | | | | PDT | | + + + + + | Body Mass Index | 29.53 | 01/08/2016 11:38 AM | | | | | PDT | | + + + + + documented in this encounter Progress Notes rAyan Grossman MD - 01/08/2016 11:58 AM PDTFormatting of this note might be different f rom the original. Subjective: Patient ID: Mani Garcia is a 50 y.o. male. HPI Alopecia, Hair Loss, happened 4 year ago, He was under a lot of stress at the time. Small areas all over scalp for the last couple months. Has not seen derm and is approved and read y to . Depression and Anxiety, Insomnia He is but now taking sertraline. He has difficult sleep and sometimes his mind does not shut off at night. He snores and is concerned he might sto p breathing at night. This is unchanged. He has appointment with SLEEP medication 03/03 Alcoholism, recent relapse 2 weeks ago, Alcohol level was 406. PMH: HTN Hyperlipidemia Alcoholism Cervical DDD and spinal stenosis. PSH: Right thumb 2007 Lumbar Diskectomy 1992 Fhx: Mom 64 Ovarian Cancer Dad 50 of [place] complications Sister 54, recurrent lymphoma,. First diagnosed with cancer in 40's Shx: Born in [place] , 16 year old son Lives in [place] since 2012, Grew up in [place] heavy [...] confusion and no agitation. no Depression, no anxiety,no sleep problems Objective: Physical Exam Heent, WNL, No carotid bruit Chest CTAB Heart RR&R /s M Abd S,NT,ND,BS+ Ext, no CCor E Neuro Non-focal Lymph, no cervical, axillary, inguinal adenopathy Musculoskeletal, no gross deformity or loss or range of motion Skin, no gross lesions, Hair with multiple focal hair loss areas. Assessment: 1. Alopecia 2. Depression with anxiety 3. Alcoholism (HCC) Plan: He looks and feels at baseline. Reviewed recent ER note. RTC 3 months Otherwise contin ue current medical regimen. documented in this encounter Plan of Treatment Not on filedocumented as of this encounter Visit Diagnoses + + | Diagnosis | + + | Alopecia - Primary Alopecia, unspecified | + + | Depression with anxiety Dysthymic disorder | + + | Alcoholism (HCC) Other and unspecified alcohol dependence, unspecified drinking | | behavior | + + documented in this encounter
--- OUTSIDE RECORDS SUMMARY | ~2020-06-06 | XMS | Encounter Summary ---
Demographics + + + | Address | NEED ADDRESS | | | [place] [address] | + + + | Home Phone | | + + + | Preferred Language | Unknown | + + + | Marital Status | Single | + + + | Buddhist Affiliation | Unknown | + + + [...] Hector Garcia | ECON | [place] [address] | | + + + + + Care Team Providers + +------+ + | Care Wig Maker Name | Role | Phone | + +------+ + | Loi Frausto PA-C | PCP | | + +------+ + Reason for Visit + + + | Reason | Comments | + + + | Therapy Daily | | | Treatment | | + + + Evaluate & Treat (Routine) + + + + + + + | Status | Reason | Specialty | Diagnoses / | Referred By | Referred To | | | | | Procedures | Contact | Contact | + + + + + + + | Authorized | Specialty | Physical | Diagnoses | [facility], | [facility] | | | Services | Therapy / | Impingement | De | Orthopedic | | | Required | Orthopedic | syndrome of | [facility], | Surgery [address] | | | | Surgery | right | MD [address] | | | | | shoulder | [address] | [place], | | | | | Impingement | [place], | [place] [address] | | | | | syndrome of | [place] | Phone: | | | | | left | [address] | [phone] | | | | | shoulder | Phone: | Fax: | | | | | region | [phone] | [phone] | | | | | | Fax: | | | | | | | [phone] | | + + + + + + + Encounter Details +--------+---------+ + + + | Date | Type | Department | Care Team | Description | +--------+---------+ + + + | 09/05/ | Office | [facility] | Meng Darby, PT | Impingement syndrome | | 2019 | Visit | ORTHOPEDIC SURGERY | [address] | of right shoulder; | | | | [address] | [place] [address] | Impingement syndrome | | | | [place], [place] | [phone] | of left shoulder | | | | [address] | | region | | | | [phone] | | | +--------+---------+ + + + [...] documented as of this encounter Progress Notes Meng Darby, PT - 09/05/2019 8:00 AM PST [facility] [address] [place] [id number] Physical Therapy Daily Treatment Note Date: 09/05/2019 Patient Information Patient Name: Mani Garcia Date of : 1965 Age: 54 y.o. Encounter Diagnoses Code Name Primary? M75.41 Impingement syndrome of right shoulder M75.42 Impingement syndrome of left shoulder region Date of Onset: 06/05/2019 Referring Provider: De Guerra MD # of PT Visits to Date: 2 Start Time: 0800 Stop time: 0830 Duration: 30 minutes Timed Treatment Codes: 30 minutes Pain Assessment: Pain Scale Used: NUMERIC Pain Rating Pre Assessment: 3 Pain Rating Post Assessment: 2 Location: bilateral shoulders Subjective: Patient reports excellent progress towards goals listed below. States he did hi s exercises and even added a couple yesterday because his shoulders are feeling much better. States he thinks it might be due to the weather warming up and him being more active. Goals: Patient Reported Outcome Goals Patient Reported Outcome Goals: PSFS Patient Specific Functional Scale Goal 1: Independent home exercise program to facilitate i ndependent symptom management. 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 Patient Specific Functional Scale Goal 2 Status: 2 Patient Specific Functional Scale Goal 3: Improve quickDASH outcome score by 10 or greater indicating improved ADL function and mobility. Patient Specific Functional Scale Goal 3 Status: 0 Objective: Therapeutic exercises x30min Access Code: [email or web address] URL: [email or web address] Date: 09/05/2019 Prepared by: Meng Darby Exercises Shoulder Internal Rotation with Resistance - 15 reps - 2 sets - 1x daily - 5x weekly Shoulder External Rotation with Anchored Resistance - 15 reps - 2 sets - 1x daily - 5x week ly Shoulder Adduction with Anchored Resistance - 15 reps - 2 sets - 1x daily - 5x weekly Standing Bilateral Low Shoulder Row with Anchored Resistance - 15 reps - 2 sets - 1x daily - 5x weekly Standing Shoulder Horizontal Abduction with Resistance - 15 reps - 2 sets - 1x daily - 5x w eekly Standing Single Arm Elbow Flexion with Resistance - 15 reps - 2 sets - 1x daily - 5x weekly Assessment: Patient reported appropriate amount of muscular fatigue at the conclusion of today's sessio n to allowed continued progress towards her goals. Patient was provided with an updated home exercise program and is progressing well towards a final independent HEP for intermediate symp florentino management. Plan: 1x/week Electronically signed by: Meng Darby, PT, 09/05/2019 8:35 AM Patient Name: Mani Garcia/: 1965/ documented in this enco unter Plan of Treatment Not on filedocumented as of this encounter Visit Diagnoses + + | Diagnosis | + + | Impingement syndrome of right shoulder Other affections of shoulder region, not | | elsewhere classified | + + | Impingement syndrome of left shoulder region | + + documented in this encounter"
--- OUTSIDE RECORDS SUMMARY | ~2020-06-06 | XMS | Encounter Summary ---
Demographics + + + | Address | NEED ADDRESS | | | [place] [address] | + + + | Home Phone [...] Author + + + | Author | [facility] | | | and [place] | + + + | Organization | [facility] | | [...] Hector Garcia | ECON | [place] [address] | | + + + + + Care Team Providers + +------+ + | Care Yeast Tender Name | Role | Phone | + +------+ + | Aryan Grossman MD | PCP | | + +------+ + Encounter Details +--------+ + + + + | Date | Type | Department | Care Team | Description | +--------+ + + + + | 02/13/ | Documentati | [facility] [place] [facility] | Zeeshan Hawkins, | | | 2013 | on | [address] | MD [address] | | | | | [place] | [place] | | | | | [address] | [address] | | | | | [phone] | | | +--------+ + + + [...] + documented as of this encounter Progress Zeeshan Cody MD - 02/13/2014 9:33 AM PDTTRANSRECTAL ECHOGRAPHY Utilizing the 6.7 mHz transrectal ultrasound probe, Mani's prostate gland was scanned in real time in both transverse and sagittal planes. The prostate gland was found to be abnormal in appearance. There was a diffuse distributio n of suspicious hypoechoic lesions in both the right and left side of the prostate gland, pa rticularly at the mid gland and apex. Prostatic calcifications were encountered at the apex . Prostate gland volume was estimated at 47 mL. PSA density was 1.604. Seminal vesicles we re not enlarged and were symmetric in their appearance. Prostate biopsies were then obtained under ultrasound guidance, with any suspicious sonogra phic lesions incorporated into the biopsies (if present). IMPRESSION: 1. Prostatic hyperplasia. Prostate gland volume is estimated at 47 mL. 2. Hypoechoic peripheral zone lesions were present diffusely, bilaterally. 3. Prostatic calcifications present. Zeeshan Hawkins MD do cumented in this encounter Plan of Treatment Not on filedocumented as of this encounter Visit Diagnoses Not on filedocumented in this encounter"
--- OUTSIDE RECORDS SUMMARY | ~2020-06-06 | XMS | Encounter Summary ---
Demographics + + + | Address | NEED ADDRESS | | | [place] [address] | + + + | Home Phone | | + + + | Preferred Language | Unknown | + + + | Marital Status | Single | + + + | Latter-Day Affiliation | Unknown | + + + | Race | White | + + + | Ethnic Group | Not or | + + + Author + + + | Author | [facility] | | | and [place] | + + + | Organization | [facility] | | [...] + | Hector Garcia | ECON | [place] [address] | | + + + + + Care Team Providers + +------+ + | Care Engine Room Operator Name | Role | Phone | [...] | Specialty | Dermatology | Diagnoses | [place]uncey, | | | | Services | | Alopecia | Aryan Velásquez MD | | | | Required | | | [address] | | | | | | [address] | | | | | | | [place] | | | | | | | [place] | | | | | | | [address] | | | | | | | Phone: | | | | | | | [phone] | | | | | | | Fax: | | | | | | | [phone] | | +--------+ + + + + + Reason for Visit + + + | Reason | Comments | + + + | Establish Care | | + + + Encounter Details +--------+---------+ + + + | Date | Type | Department | Care Team | Description | +--------+---------+ + + + | 11/12/ | Office | [facility] | Aryan Grossman, | Alopecia (Primary | | 2013 | Visit | [facility] | [address] | Dx); HTN | | | | [address] | [address] [place], | (hypertension); | | | | [place] | [place] [address] | Stress reaction; | | | | [address] | [phone] | Nicotine addiction; | | | | [phone] | | Screening; | | | | | | Hyperlipidemia | +--------+---------+ + + + Social History + +-------+ +--------+------+ | Tobacco Use | Types | Packs/Day | Years | Date | | | | | Used | | + +-------+ +--------+------+ | Former Smoker | | | | | + +-------+ +--------+------+ + + +---------+ + | Alcohol Use | Drinks/Week | oz/Week | Comments | + + +---------+ + | Yes | 15 Standard drinks | 12.5 | | | | or equivalent | [...] + + + | Blood Pressure | 160/110 | 11/12/2013 11:28 AM | | | | | PST | | + + + + + | Pulse | 91 | 11/12/2013 11:28 AM | | | | | PST | | + + + + + | Temperature | 37.7 C (99.9 F) | 11/12/2013 11:28 AM | | | | | PST | | + + + + + | Respiratory Rate | 16 | 11/12/2013 11:28 AM | | | | | PST | | + + + + + | Oxygen Saturation | 96% | 11/12/2013 11:28 AM | | | | | PST | | + + + + + | Inhaled Oxygen | - | - | | | Concentration | | | | + + + + + | Weight | 89.8 kg (198 lb) | 11/12/2013 11:28 AM | | | | | PST | | + + + + + | Height | 175.3 cm (5' 9") | 11/12/2013 11:28 AM | | | | | PST | | + + + + + | Body Mass Index | 29.24 | 11/12/2013 11:28 AM | | | | | PST | | + + + + + documented in this encounter Progress Aryan Gates MD - 11/12/2013 11:49 AM PSTFormatting of this note might be different f rom the original. Subjective: Patient ID: Mani Garcia is a 48 y[address] [facility], Previously seen at [facility]. HTN, He was on some kind of blood pressure medication in the past that he stopped taking i n the past. He does not remember what it was. He thinks it might have been lisinopril. His hair has been falling out in patches for the last month. He then shaved his head. Right elbow, aches a lot, Right shoulder also aches a lot. He does a lot of repetative ac tivity. Stress, with new job and older sister recently . He does feel stressed. He wiley s not feel depressed. He sleeps good. He is a little mccarthy. Nicotine Addiction. PMH: HTN Hyperlipidemia. PSH: Right thumb 2008 Lumbar Diskectomy 1992 Fhx: Mom 64 Ovarian Cancer Dad 50 of MS complications Sister 54, recurrent lymphoma,. First diagnosed with cancer in 's Shx: Born in [facility], 16 year old son Lives in [place] since 2012, Grew up in [place] in [place]. [employer] Drinks 5 drinks of whisky per night, [...] no agitation. no Depression, no anxiety,no sleep problems, some stress Objective: Physical Exam Heent, WNL, No carotid bruit Chest CTAB Heart RR&R /s M Abd S,NT,ND,BS+ Ext, no CCor E Neuro Non-focal Lymph, no cervical, axillary, inguinal adenopathy Musculoskeletal, no gross deformity or loss or range of motion Skin, no gross lesions, scalp with multiple Assessment: 1. Alopecia Ambulatory referral to Dermatology 2. HTN (hypertension) 3. Stress reaction 4. Nicotine addiction Plan: He looks and feels fine except for his stress. He should stop smoking. Complete labs, An tifungal to scalp, Refer to derm. Lisinopril trial, Baby aspirin. Dental. Consider Crocker tix. documented in this encounter Plan of Treatment + + +--------+ + + | Name | Type | Priori | Associated Diagnoses | Order Schedule | | | | ty | | | + + +--------+ + + | Ambulatory referral | Outpatient | Routin | Alopecia | 1 Occurrences | | to Dermatology | Referral | e | | starting 11/12/2013 | | | | | | until 11/12/2014 | + + +--------+ + + documented as of this encounter Results Urinalysis with Microscopic if Indicated (11/30/2013 9:51 AM PST) + + + + + + | Component | Value | Ref Range | Performed | Pathologist | | | | | At | Signature | + + + + + + | COLLECTION | UNKNOWN | | [facility] | | | [facility] | | | [facility] | | | | | | MEDICAL | | | | | | CENTER - | | | | | | LABORATORY | | + + + + + + | Color, | YELLOW | | [facility] | | | Urine | | | [facility] | | | | | | MEDICAL | | | | | | CENTER - | | | | | | LABORATORY | | + + + + + + | Clarity, | CLEAR | | [facility] | | | Urine | | | [facility] | | | | | | MEDICAL | | | | | | CENTER - | | | | | | LABORATORY | | + + + + + + | Glucose, | NEGATIVE | NEGATIVE mg/dL | [facility] | | | Urine | | | [facility] | | | | | | MEDICAL | | | | | | CENTER - | | | | | | LABORATORY | | + + + + + + | Bilirubin, | NEGATIVE | NEGATIVE | [facility] | | | Urine | | | [facility] | | | | | | MEDICAL | | | | | | CENTER - | | | | | | LABORATORY | | + + + + + + | Ketones, | NEGATIVE | NEGATIVE | [facility] | | | Urine | | | [facility] | | | | | | MEDICAL | | | | | | CENTER - | | | | | | LABORATORY | | + + + + + + | Specific | 1.015 | 1.001 - 1.030 | [facility] | | | [place], | | | [facility] | | | Urine | | | MEDICAL | | | | | | CENTER - | | | | | | LABORATORY | | + + + + + + | Blood, | NEGATIVE | NEGATIVE | [facility] | | | Urine | | | [facility] | | | | | | MEDICAL | | | | | | CENTER - | | | | | | LABORATORY | | + + + + + + | pH, Urine | 8.5 (H) | 5.0 - 8.0 | [facility] | | | | | | [facility] | | | | | | MEDICAL | | | | | | CENTER - | | | | | | LABORATORY | | + + + + + + | Protein, | 30 | NEGATIVE mg/dL | [facility] | | | Urine | | | [facility] | | | | | | MEDICAL | | | | | | CENTER - | | | | | | LABORATORY | | + + + + + + | Urobilinoge | NORMAL | NORMAL EU/dL | [facility] | | | n, Urine | | | [facility] | | | | | | MEDICAL | | | | | | CENTER - | | | | | | LABORATORY | | + + + + + + | Nitrite, | NEGATIVE | NEGATIVE | [facility] | | | Urine | | | [facility] | | | | | | MEDICAL | | | | | | CENTER - | | | | | | LABORATORY | | + + + + + + | Leukocyte | NEGATIVE | NEGATIVE | [facility] | | | Esterase, | | | [facility] | | | Urine | | | MEDICAL | | | | | | CENTER - | | | | | | LABORATORY | | + + + + + + + + | Specimen | + + | Urine specimen | | (specimen) | + + + + + + + | Performing | Address | City/State/Zipcode | Phone Number | | Organization | | | | + + + + + | [facility] | [address] | [place] | [phone] | | [facility] | | [address] | | | - LABORATORY | | | | + + + + + | [facility] | [address] | [place], [place] | | | [facility] | | [id number] | | | - LABORATORY | | | | + + + + + C-Reactive Protein, High Sensitivity (11/30/2013 9:32 AM PST) + + + + + + | Component | Value | Ref Range | Performed | Pathologist | | | | | At | Signature | + + + + + + | CRP, High | 0.9Comment: | 0.0 - 3.0 mg/L | [facility] | | | Sensitive | Interpretation for | | [facility] | | | | Coronary Heart Disease | | MEDICAL | | | | Risk: Low risk: | | CENTER - | | | | <1.0 Average risk: | | LABORATORY | | | | 1.0 to 3.0 High | | | | | | Risk: >3.0 Relative risk | | | | | | categories follow the | | | | | | recommendations of | | | | | | the[facility] Heart | | | | | | Association and the CDC. | | | | | | Measurement of | | | | | | thehsCRP should be done | | | | | | twice (averaging | | | | | | results), optimallytwo | | | | | | weeks apart, in | | | | | | metabolically stable | | | | | | patients. If thehsCRP | | | | | | level is >10 mg/L, the | | | | | | test should be repeated | | | | | | and thepatient examined | | | | | | for non cardiovascular | | | | | | sources ofinflammation, | | | | | | such as infection. | | | | + + + + + + + + | Specimen | + + | Blood specimen | | (specimen) | + + + + + + + | Performing | Address | City/State/Zipcode | Phone Number | | Organization | | | | + + + + + | [facility] | [address] | [place] | [phone] | | [facility] | | [address] | | | - LABORATORY | | | | + + + + + | [facility] | [address] | [place], [place] | | | [facility] | | [id number] | | | - LABORATORY | | | | + + + + + PSA, Screen (11/30/2013 9:32 AM PST) + + + + + + | Component | Value | Ref Range | Performed | Pathologist | | | | | At | Signature | + + + + + + | PSA | 75.46 (H)Comment: | 0.00 - 4.00 | [facility] | | | | Testing performed on the | ng/mL | [facility] | | | | [facility] [place] [facility] | | MEDICAL | | | | Analyzer. | | CENTER - | | | | | | LABORATORY | | + + + + + + + + | Specimen | + + | Blood specimen | | (specimen) | + + + + + + + | Performing | Address | City/State/Zipcode | Phone Number | | Organization | | | | + + + + + | [facility] | [address] | [place] | [phone] | | [facility] | | [address] | | | - LABORATORY | | | | + + + + + | [facility] | [address] | [place] | | | [facility] | | [address], [facility] | | | - LABORATORY | | | | + + + + + TSH (11/30/2013 9:32 AM PST) + + + + + + | Component | Value | Ref Range | Performed | Pathologist | | | | | At | Signature | + + + + + + | TSH | 0.90Comment: Testing | 0.34 - 5.60 | [facility] | | | | performed on the [facility] | uIU/mL | [facility] | | | | [place] [facility] | | MEDICAL | | | | Analyzer. | | CENTER - | | | | | | LABORATORY | | + + + + + + + + | Specimen | + + | Blood specimen | | (specimen) | + + + + + + + | Performing | Address | City/State/Zipcode | Phone Number | | Organization | | | | + + + + + | [facility] | [address] | [place], [place] | [phone] | | [facility] | | [address] | | | - LABORATORY | | | | + + + + + | [facility] | [address] | [place], [place] | | | [facility] | | [id number] | | | - LABORATORY | | | | + + + + + Lipid Profile (11/30/2013 9:32 AM PST) + + + + + + | Component | Value | Ref Range | Performed | Pathologist | | | | | At | Signature | + + + + + + | Triglycerid | 86 | 35 - 160 mg/dL | [facility] | | | es | | | [facility] | | | | | | MEDICAL | | | | | | CENTER - | | | | | | LABORATORY | | + + + + + + | Cholesterol | 156 | 150 - 200 mg/dL | [facility] | | | | | | [facility] | | | | | | MEDICAL | | | | | | CENTER - | | | | | | LABORATORY | | + + + + + + | HDL | 71 (H) | 27 - 67 mg/dL | [facility] | | | | | | [facility] | | | | | | MEDICAL | | | | | | CENTER - | | | | | | LABORATORY | | + + + + + + | LDL, | 68 | <130 mg/dL | [facility] | | | Calculated | | | [facility] | | | | | | MEDICAL | | | | | | CENTER - | | | | | | LABORATORY | | + + + + + + | Chol/HDL | 2.2Comment: | | [facility] | | | Ratio | | | [facility] | | | | | | MEDICAL | | | | -------RISK CATEGORY: | | CENTER - | | | | CHOL/HDL * T.CHOL * LDL | | LABORATORY | | | | CHOL * HDL CHOL | | | | | | | | | | | | RATIODESIRABLE: (M) | | | | | | 4.0-6.7 <200 | | | | | | <130 >50 | | | | | | (F) | | | | | | 3.7-4.2BORDERLINE:(M) | | | | | | 6.7-7.4 200-240 | | | | | | 130-160 <45 | | | | | | (F) | | | | | | 4.2-5.5HIGH RISK: (M) | | | | | | >7.4 >240 | | | | | | >160 <35 | | | | | | (F) | | | | | | >5.5 | | | | | | | | | | | | | | | | + + + + + + + + | Specimen | + + | Blood specimen | | (specimen) | + + + + + + + | Performing | Address | City/State/Zipcode | Phone Number | | Organization | | | | + + + + + | [facility] | [address] | [place] | [phone] | | [facility] | | [address] | | | - LABORATORY | | | | + + + + + | [facility] | [address] | [place], [place] | | | [facility] | | [id number] | | | - LABORATORY | | | | + + + + + Comprehensive Metabolic Panel (11/30/2013 9:32 AM PST) + + + + + + | Component | Value | Ref Range | Performed | Pathologist | | | | | At | Signature | + + + + + + | Glucose | 105 | 70 - 109 mg/dL | [facility] | | | | | | [facility] | | | | | | MEDICAL | | | | | | CENTER - | | | | | | LABORATORY | | + + + + + + | Calcium | 8.7 | 8.3 - 10.5 | [facility] | | | | | mg/dL | [facility] | | | | | | MEDICAL | | | | | | CENTER - | | | | | | LABORATORY | | + + + + + + | Alkaline | 85 | 40 - 110 IU/L | [facility] | | | Phosphatase | | | [facility] | | | | | | MEDICAL | | | | | | CENTER - | | | | | | LABORATORY | | + + + + + + | AST | 33 | 10 - 42 IU/L | [facility] | | | | | | [facility] | | | | | | MEDICAL | | | | | | CENTER - | | | | | | LABORATORY | | + + + + + + | ALT | 26 | 6 - 45 IU/L | [facility] | | | | | | [facility] | | | | | | MEDICAL | | | | | | CENTER - | | | | | | LABORATORY | | + + + + + + | Bilirubin | 1.0 | 0.2 - 1.0 mg/dL | [facility] | | | Total | | | [facility] | | | | | | MEDICAL | | | | | | CENTER - | | | | | | LABORATORY | | + + + + + + | Total | 6.7 | 6.0 - 7.8 gm/dL | [facility] | | | Protein | | | [facility] | | | | | | MEDICAL | | | | | | CENTER - | | | | | | LABORATORY | | + + + + + + | Albumin | 3.8 | 3.2 - 5.0 gm/dL | [facility] | | | | | | [facility] | | | | | | MEDICAL | | | | | | CENTER - | | | | | | LABORATORY | | + + + + + + | BUN | 12 | 7 - 18 mg/dL | [facility] | | | | | | [facility] | | | | | | MEDICAL | | | | | | CENTER - | | | | | | LABORATORY | | + + + + + + | Creatinine | 0.86 | 0.60 - 1.30 | [facility] | | | | | mg/dL | [facility] | | | | | | MEDICAL | | | | | | CENTER - | | | | | | LABORATORY | | + + + + + + | Estimated | >60Comment: For | >60 mL/min/A | [facility] | | | GFR | -Americans, | | [facility] | | | | please multiply the | | MEDICAL | | | | result by 1.210 | | CENTER - | | | | This is an estimated GFR | | LABORATORY | | | | and is based on a | | | | | | standard adult | | | | | | body mass (A=1.73m2) and | | | | | | serum creatinine | | | | + + + + + + | BUN/Creatin | 14.0 | 12 - 20 | [facility] | | | ine Ratio | | | [facility] | | | | | | MEDICAL | | | | | | CENTER - | | | | | | LABORATORY | | + + + + + + | Na | 138 | 136 - 149 mEq/L | [facility] | | | | | | [facility] | | | | | | MEDICAL | | | | | | CENTER - | | | | | | LABORATORY | | + + + + + + | K | 3.7 | 3.5 - 5.1 mEq/l | [facility] | | | | | | [facility] | | | | | | MEDICAL | | | | | | CENTER - | | | | | | LABORATORY | | + + + + + + | Cl | 103 | 98 - 109 mEq/l | [facility] | | | | | | [facility] | | | | | | MEDICAL | | | | | | CENTER - | | | | | | LABORATORY | | + + + + + + | CO2 | 26 | 24 - 31 mEq/L | [facility] | | | | | | [facility] | | | | | | MEDICAL | | | | | | CENTER - | | | | | | LABORATORY | | + + + + + + | Anion Gap | 12.7 | 6.0 - 17.0 | [facility] | | | | | | [facility] | | | | | | MEDICAL | | | | | | CENTER - | | | | | | LABORATORY | | + + + + + + + + | Specimen | + + | Blood specimen | | (specimen) | + + + + + + + | Performing | Address | City/State/Zipcode | Phone Number | | Organization | | | | + + + + + | [facility] | [address] | [place], [place] | [phone] | | [facility] | | [address] | | | - LABORATORY | | | | + + + + + | [facility] | [address] | [place], [place] | | | [facility] | | [address] [place] [address] | | | - LABORATORY | | | | + + + + + CBC with Differential (11/30/2013 9:32 AM PST) + + + + + + | Component | Value | Ref Range | Performed | Pathologist | | | | | At | Signature | + + + + + + | White Blood | 8.5 | 4.0 - 11.0 K/uL | [facility] | | | Cells | | | [facility] | | | | | | MEDICAL | | | | | | CENTER - | | | | | | LABORATORY | | + + + + + + | Red Blood | 4.83 | 4.30 - 5.70 | [facility] | | | Cells | | M/uL | [facility] | | | | | | MEDICAL | | | | | | CENTER - | | | | | | LABORATORY | | + + + + + + | Hemoglobin | 17.1 | 13.5 - 18.0 | [facility] | | | | | gm/dL | [facility] | | | | | | MEDICAL | | | | | | CENTER - | | | | | | LABORATORY | | + + + + + + | Hematocrit | 52.0 (H) | 40.0 - 51.0 % | [facility] | | | | | | [facility] | | | | | | MEDICAL | | | | | | CENTER - | | | | | | LABORATORY | | + + + + + + | MCV | 101.6 (H) | 83.0 - 101.0 fL | [facility] | | | | | | [facility] | | | | | | MEDICAL | | | | | | CENTER - | | | | | | LABORATORY | | + + + + + + | MCH | 34.3 | 28.0 - 35.0 pg | [facility] | | | | | | [facility] | | | | | | MEDICAL | | | | | | CENTER - | | | | | | LABORATORY | | + + + + + + | MCHC | 32.9 | 32.0 - 36.0 | [facility] | | | | | g/dL | [facility] | | | | | | MEDICAL | | | | | | CENTER - | | | | | | LABORATORY | | + + + + + + | RDW-CV | 12.8 | <15.0 % | [facility] | | | | | | [facility] | | | | | | MEDICAL | | | | | | CENTER - | | | | | | LABORATORY | | + + + + + + | Platelet | 291 | 140 - 440 K/uL | [facility] | | | Count | | | [facility] | | | | | | MEDICAL | | | | | | CENTER - | | | | | | LABORATORY | | + + + + + + | % | 72.2 | 45 - 75 % | [facility] | | | Neutrophils | | | [facility] | | | | | | MEDICAL | | | | | | CENTER - | | | | | | LABORATORY | | + + + + + + | % | 20.0 | 20 - 45 % | [facility] | | | Lymphocytes | | | [facility] | | | | | | MEDICAL | | | | | | CENTER - | | | | | | LABORATORY | | + + + + + + | % Monocytes | 5.8 | 4 - 12 % | [facility] | | | | | | [facility] | | | | | | MEDICAL | | | | | | CENTER - | | | | | | LABORATORY | | + + + + + + | % | 0.9 | 0 - 5 % | [facility] | | | Eosinophils | | | [facility] | | | | | | MEDICAL | | | | | | CENTER - | | | | | | LABORATORY | | + + + + + + | % Basophils | 1.1 (H) | 0 - 1 % | [facility] | | | | | | [facility] | | | | | | MEDICAL | | | | | | CENTER - | | | | | | LABORATORY | | + + + + + + | Absolute | 6.1 | 1.5 - 6.6 K/uL | [facility] | | | Neutrophils | | | [facility] | | | | | | MEDICAL | | | | | | CENTER - | | | | | | LABORATORY | | + + + + + + | Absolute | 1.7 | 0.6 - 3.2 K/uL | [facility] | | | Lymphocytes | | | [facility] | | | | | | MEDICAL | | | | | | CENTER - | | | | | | LABORATORY | | + + + + + + | Absolute | 0.5 | 0.0 - 1.0 K/uL | [facility] | | | Monocytes | | | [facility] | | | | | | MEDICAL | | | | | | CENTER - | | | | | | LABORATORY | | + + + + + + | Absolute | 0.1 | 0.0 - 0.4 K/uL | [facility] | | | Eosinophils | | | [facility] | | | | | | MEDICAL | | | | | | CENTER - | | | | | | LABORATORY | | + + + + + + | Absolute | 0.1 | 0.0 - 0.1 K/uL | [facility] | | | Basophils | | | [facility] | | | | | | MEDICAL | | | | | | CENTER - | | | | | | LABORATORY | | + + + + + + + + | Specimen | + + | Blood specimen | | (specimen) | + + + + + + + | Performing | Address | City/State/Zipcode | Phone Number | | Organization | | | | + + + + + | [facility] | [address] | [place] | [phone] | | [facility] | | [address] | | | - LABORATORY | | | | + + + + + | [facility] | [address] | [place] | | | [facility] | | [id number], [facility] | | | - LABORATORY | | | | + + + + + documented in this encounter Visit Diagnoses + + | Diagnosis | + + | Alopecia - Primary Alopecia, unspecified | + + | HTN (hypertension) Unspecified essential hypertension | + + | Stress reaction Other acute reactions to stress | + + | Nicotine addiction Tobacco use disorder | + + | Screening Screening for unspecified condition | + + | Hyperlipidemia Other and unspecified hyperlipidemia | + + documented in this encounter
--- OUTSIDE RECORDS SUMMARY | ~2020-06-06 | XMS | Encounter Summary ---
Demographics + + + | Address | NEED ADDRESS | | | [place] [address] | + + + | Home Phone | | + + + | Preferred Language | Unknown | + + + | Marital Status | Single | + + + | Congregation Affiliation | Unknown | + + + | Race | White | + + + | Ethnic Group | Not or | + + + Author + + + | Author | [facility] | | | and [place] | + + + | Organization | [facility] | | | [...] + | Hector Garcia | ECON | [place] [address] | | + + + + + Care Team Providers + +------+ + | Care Surface Boss Name | Role | Phone | + [...] Closed | | Radiology | Diagnoses | Shrtuhi, | [facility] | | | | | Prostate | Zeeshan Powell MD | Medicine | | | | | cancer (HCC) | [address] | [address] | | | | | Procedures | [address] [place] | [place], | | | | | [place] Bone | [place], [place] | [place] | | | | | Scan Whole | [address] | [address] | | | | | Body | Phone: | Phone: | | | | | | [phone] | [phone] | | | | | | Fax: | Fax: | | | | | | [phone] | [phone] | +--------+--------+ + + + + Reason for Visit Diagnostic/Screening (Routine) +--------+--------+ + + + + | Status | Reason | Specialty | Diagnoses / | Referred By | Referred To | | | | | Procedures | Contact | Contact | +--------+--------+ + + + + | Closed | | Radiology | Diagnoses | Shruthi, | [facility] | | | | | Prostate | Zeeshan Powell MD | Medicine | | | | | cancer (HCC) | [address] | [address] | | | | | Procedures | [address] [place] | [place], | | | | | [place] Bone | [place], [place] | [place] | | | | | Scan Whole | [address] | [address] | | | | | Body | Phone: | Phone: | | | | | | [phone] | [phone] | | | | | | Fax: | Fax: | | | | | | [phone] | [phone] | +--------+--------+ + + + + Encounter Details +--------+ + + + + | Date | Type | Department | Care Team | Description | +--------+ + + + + | 02/21/ | Hospital | [facility] | Zeeshan Hawkins, | Prostate cancer | | 2013 | Encounter | MED CTR NUCLEAR | [address] | (HCC) | | | | MEDICINE [address] | [place], [place] | | | | | [address] [place], | [address] | | | | | [place] [address] | | | | | | [phone] | | | +--------+ + + + [...] NM BONE SCAN WHOLE | Routin | 02/21/2014 | Prostate cancer | Results for this | | BODY | e | 11:53 AM | (HCC) | procedure are in the | | | | PDT | | results section. | + +--------+ + + + documented in this encounter Results NM Bone Scan Whole Body (02/21/2014 11:53 AM PDT) + + | Specimen | + + | | + + + + + | Narrative | Performed At | + + + | NM BONE SCAN WHOLE BODY 02/21/2014 9:23 AM HISTORY:?Prostate | MISCELANIOUS | | cancer. COMPARISON: CT scan of the abdomen and pelvis dated | LAB | | 02/21/2014. PROTOCOL: Approximately three hours after injection of | | | 26.3 mCi technetium 99m MDP, whole body images were obtained in | | | anterior and posterior projections. FINDINGS: There is normal | | | distribution of activity within the skeleton with no evidence for | | | metastatic disease. Mildly increased uptake is visualized of the | | | mandible and maxilla possibly due to dental caries. Mildly increased | | | uptake is visualized of the bilateral shoulders, wrists, right knee, | | | and right ankle that are most likely due to degenerative change. | | | Mildly increased uptake is seen in the anterior aspects of left ribs | | | 1 and 3 that could be due to degenerative change. Normal activity | | | is visualized within the kidneys and bladder. IMPRESSION - NO | | | EVIDENCE FOR OSSEOUS METASTATIC DISEASE. Dictated and Signed by: | | | Horace Galvez MD Electronically signed: 02/21/2014 1:08 PM | | + + + + + | Procedure Note | + + | Frank, Rad Results In - 02/21/2014 1:11 PM PDT NM BONE SCAN WHOLE BODY 02/21/2014 9:23 | | AM HISTORY:?Prostate cancer.COMPARISON: CT scan of the abdomen and pelvis dated | | 02/21/2014.PROTOCOL: Approximately three hours after injection of 26.3 mCi technetium | | 99mMDP, whole body images were obtained in anterior and posterior | | projections.FINDINGS:There is normal distribution of activity within the skeleton with | | no evidencefor metastatic disease.Mildly increased uptake is visualized of the mandible | | and maxilla possibly dueto dental caries. Mildly increased uptake is visualized of the | | bilateralshoulders, wrists, right knee, and right ankle that are most likely due | | todegenerative change. Mildly increased uptake is seen in the anterior aspects ofleft | | ribs 1 and 3 that could be due to degenerative change.Normal activity is visualized | | within the kidneys and bladder.IMPRESSION -NO EVIDENCE FOR OSSEOUS METASTATIC | | DISEASE.Dictated and Signed by: Horace Galvez MD Electronically signed: 02/21/2014 1:08 | | PM | |Mildly increased uptake is visualized of the mandible and maxilla possibly due | |to dental caries. Mildly increased uptake is visualized of the bilateral | |shoulders, wrists, right knee, and right ankle that are most likely due to | |degenerative change. Mildly increased uptake is seen in the anterior aspects of | |left ribs 1 and 3 that could be due to degenerative change. | | | |Normal activity is visualized within the kidneys and bladder. | | | |IMPRESSION - | |NO EVIDENCE FOR OSSEOUS METASTATIC DISEASE. | | | |Dictated and Signed by: Horace Galvez MD | | Electronically signed: 02/21/2014 1:08 PM | + + + +---------+ + + | Performing | Address | City/State/Zipcode | Phone Number | | Organization | | | | + +---------+ + + | [facility] | | | [phone] | + +---------+ + + | MISCELANIOUS LAB | | | [phone] | + +---------+ + + documented in [...] | technetium TC-99M medronate | Given | 02/22/20 | 25 | | | | (MDP) injection 25 millicurie 25 | | 14 9:27 | -millicu | | | | -millicurie, Intravenous, ONCE | | AM PDT | que | | | | PRN, Other, Starting Erma 02/21/14 | | | | | | | at 0926, For 1 dose, Nuclear | | | | | | | Medicine | | | | | | + +--------+ + +------+------+ +---+---+ | | | +---+---+ documented in this encounter"
--- OUTSIDE RECORDS SUMMARY | ~2020-06-06 | XMS | Encounter Summary ---
Demographics + + + | Address | NEED ADDRESS | | | [place] [address] | + + + | Home Phone [...] Author + + + | Author | [facility] | | | and [place] | + + + | Organization | [facility] | | [...] + | Hector Garcia | ECON | [place] [address] | | + + + + + Care Team Providers + +------+ + | Care Car Usher Name | Role | Phone | + [...] + + | Closed | Specialty | Otolaryngolog | Diagnoses | Grider, | [facility] | | | Services | y | Neoplasm of | Antony Stanley MD | Otolaryngolog | | | Required | | uncertain | [address] | [address] | | | | | behavior of | [address] | [address] [place] | | | | | tongue | [place], | [address] [place] | | | | | Procedures | [place] [address] | [place], [place] | | | | | [place] | Phone: | [phone] | | | | | TONGUE | [phone] | Phone: | | | | | S[facility] | Fax: | [phone] | | | | | 2/3+CLOS | [phone] | Fax: | | | | | | | [phone] | +--------+ + + + + + Encounter Details +--------+---------+ + + + | Date | Type | Department | Care Team | Description | +--------+---------+ + + + | 09/29/ | Office | [facility] [place] | Antony Grider MD | Tongue mass (Primary | | 2018 | Visit | OTOLARYNGOLOGY [address] | [address] | Dx) | | | | [address] | [address] [place], [place] | | | | | [place], [place] | [address] | | | | | [address] | | | | | | [phone] | | | +--------+---------+ + + + [...] documented as of this encounter Progress Notes Antony Grider MD - 09/29/2017 10:30 AM PSTPreoperative diagnosis: Tongue lesion of uncerta in diagnosis. Postoperative diagnosis: Same Findings: Patient has a leukoplakic area on the dorsal side of the tongue with an ulcerated center that he is 7-8 mm in size that is removed. Procedure: The underside of the tongue was initially treated with viscous Xylocaine on Q-ti ps. The area was then injected with 1% Xylocaine with epinephrine. The lesion was excised in a elliptical incision of full-thickness through the mucous membrane including some of the tissue underneath the lesion. The entire lesion was then sent for path examination. The w ound itself was closed with interrupted 5-0 Vicryl suture. Once no evidence of any bleeding area was washed well and the patient is given an appointment to be seen again in 1 week's t chandrakant. documented in this e ncounter Plan of Treatment Not on filedocumented as of this encounter Procedures + +--------+ + + + | Procedure Name | Priori | Date/Time | Associated Diagnosis | Comments | | | ty | | | | + +--------+ + + + | SURGICAL PATHOLOGY | Routin | 09/29/2017 | | Results for this | | EXAM | e | 12:00 AM | | procedure are in the | | | | PST | | results section. | + +--------+ + + + documented in this encounter Results Surgical Pathology Exam (09/29/2017 12:00 AM PST) + + | Specimen | + + | | + + + + + | Narrative | Performed At | + + + | SPECIMEN(S): A TONGUE LESION SPECIMEN SOURCE: A. TONGUE LESION | [facility] | | CLINICAL HISTORY: No preop or clinical information is given on | [facility] | | requisition. FINAL PATHOLOGIC DIAGNOSIS: Tongue lesion, biopsy: | | | - Squamous mucosa with mild atypia, acanthosis, overlying | | | hyperparakeratosis, and mixed inflammatory infiltrates. | | | CLR:[facility]:C2NR GROSS DESCRIPTION: Received in formalin labeled | | | "Mani Jose, excision of tongue lesion" is a 0.8 x 0.7 x 0.25 cm | | | chin-bowen and pink-bowen colored tissue fragment which is inked blue and | | | trisected, submitted, all in (A1). ka:CLR:[facility] MICROSCOPIC | | | EXAMINATION: Histologic sections of all submitted blocks are examined | | | by light microscopy. These findings, together with the gross | | | examination, support the pathologic diagnosis. PERFORMING | | | LABORATORY: Tissue processing and slide preparation were performed by | | | [facility], [address], [place] [address] | | | (Tilt Tray Driver: Je Michael M.D.; CLIA#: [id number]). | | | Professional interpretation was performed by [facility], [address], [place] [address] (Tilt Tray Driver: Je | | | Morena Michael; CLIA#: [id number]). Diagnostician: | | | Phi Coronel MD Pathologist Electronically Signed | | | 10/03/2017 | | + + + + +---------+ + + | Performing | Address | City/State/Zipcode | Phone Number | | Organization | | | | + +---------+ + + | [facility] | | | | | [facility] | | | | + +---------+ + + documented in this encounter Visit Diagnoses + + | Diagnosis | + + | Tongue mass - Primary Swelling, mass, or lump in head and neck | + + documented in this encounter
--- OUTSIDE RECORDS SUMMARY | ~2020-06-06 | XMS | Encounter Summary ---
Demographics + + + | Address | NEED ADDRESS | | | [place] [address] | + + + | Home Phone | | + + + | Preferred Language | Unknown | + + + | Marital Status | Single | + + + | Worship Affiliation | Unknown | + + + | Race | White | + + + | Ethnic Group | Not or | + + + Author + + + | Author | [facility] | | | and [place] | + + + | Organization | [facility] | | | [...] Hector Garcia | ECON | [place] [address] | | + + + + + Care Team Providers + +------+ + | Care Roadway Designer Name | Role | Phone | + +------+ + | Aryan Grossman MD | PCP | | + +------+ + Encounter Details +--------+ + + + + | Date | Type | Department | Care Team | Description | +--------+ + + + + | 12/12/ | Orders Only | [facility] [place] [facility] | Ingrid Seay, | Screening | | 2013 | | [facility]IC[facility] [place] | Career Services Coordinator | | | | | [address] | | | | | | [place] | | | | | | [address] | | | | | | [phone] | | | +--------+ + + + [...] | + +--------+ + + + | HIV 1 AND 2 AB | Routin | 12/12/2013 | Screening | Results for this | | SCREEN REFLEXIVE | e | 4:30 PM | | procedure are in the | | | | PDT | | results section. | + +--------+ + + + documented in this encounter Results HIV 1 AND 2 Ab Screen (Reflexive) (12/12/2013 4:30 PM PDT) + + + + + + | Component | Value | Ref Range | Performed | Pathologist | | | | | At | Signature | + + + + + + | HIV 1 and 2 | See CommentsComment: Non | NR | REFERENCE | | | Ab | ReactiveThe Non | | LAB [facility] | | | | Reactive HIV 1/2 | | | | | | antibody result | | | | | | indicates that | | | | | | antibodies toHIV 1/2 | | | | | | have not been detected | | | | | | in this specimen. This | | | | | | result does notpreclude | | | | | | previous exposure or | | | | | | infection.Testing | | | | | | Performed: [facility], [address] | | | | | [address], [place] | | | | | | [address] | | | | + + + + + + + + | Specimen | + + | Blood specimen | | (specimen) | + + + + + + + | Performing | Address | City/State/Zipcode | Phone Number | | Organization | | | | + + + + + | [facility] | [address] | [place] [address] | [phone] | + + + + + documented in this encounter Visit Diagnoses + + | Diagnosis | + + | Screening Screening for unspecified condition | + + documented in this encounter"
--- OUTSIDE RECORDS SUMMARY | ~2020-06-06 | XMS | Encounter Summary ---
Demographics + + + | Address | NEED ADDRESS | | | [place] [address] | + + + | Home Phone | | + + + | Preferred Language | Unknown | + + + | Marital Status | Single | + + + | Shinto Affiliation | Unknown | + + + | Race | White | + + + | Ethnic Group | Not or | + + + Author + + + | Author | [facility] | | | and [place] | + + + | Organization | [facility] | | | [...] Hector Garcia | ECON | [place] [address] | | + + + + + Care Team Providers + +------+ + | Care Shipyard Painter Name | Role | Phone | + +------+ + | Aryan Grossman MD | PCP | | + +------+ + Reason for Visit +---------+--------+ + | Reason | Onset | Comments | | | Date | | +---------+--------+ + | Results | 02/27/ | | | | 2013 | | +---------+--------+ + Encounter Details +--------+ + + + + | Date | Type | Department | Care Team | Description | +--------+ + + + + | 02/27/ | Telephone | [facility] | Zeeshan Sotelo, | Results | | 2013 | | [address] | MD [address] | | | | | [place] | [place] | | | | | [id number] | [id number] | | | | | [phone] | | | +--------+ + + + [...] this encounter Miscellaneous Notes Telephone Encounter - Ileana Castillo RN - 02/28/2014 5:[address] S CAN AND BONE SCAN WERE BOTH NEGATIVE PER DR SOTELO. HE IS IN THE PROCESS OF GETTING ESTABLI SHED WITH A UROLOGIST IN [place] AND HE WILL SIGN A RELEASE SO WE CAN FAX OUR RECORDS TO THE . ADVISED TO CALL IF HE HAS ANY FURTHER QUESTIONS OR CONCERNS. elephone Encounter - Lina Schmitt CMA - 3:04 PM PDTMani Hanson's , called wanting to know Mani's CT results. She is wondering if the cancer has moved to any other parts of the body besides the prostate. I let patients know that I will route a note to Dr. Sotelo's head nurse Natty since she i s out of the office today but will be in tomorrow 02/28/14. Patients verbalized marina jeff. I personally contacted Mani by calling his cell number [phone] to confirm if Margie was indeed his since I did not see her listed on his verbal release of information shee tRuben Singleton stated that Margie is his and hadn't had the chance to update information but did not clarify if she is to know any medical information. Mani stated that he is know jose desir in [place]. docum ented in this encounter Plan of Treatment Not on filedocumented as of this encounter Visit Diagnoses Not on filedocumented in this encounter"
--- OUTSIDE RECORDS SUMMARY | ~2020-06-06 | XMS | Encounter Summary ---
Demographics + + + | Address | NEED ADDRESS | | | [place] [address] | + + + | Home Phone | | + + + | Preferred Language | Unknown | + + + | Marital Status | Single | + + + | Temple Affiliation | Unknown | + + + | Race | White | + + + | Ethnic Group | Not or | + + + Author + + + | Author | [facility] | | | and [place] | + + + | Organization | [facility] | | [...] Hector Garcia | ECON | [place] [address] | | + + + + + Care Team Providers + +------+ + | Care Business Services Associate Name | Role | Phone | + +------+ + PCP | Unavailable | + +------+ + Encounter Details +--------+ + + + + | Date | Type | Department | Care Team | Description | +--------+ + + + + | 02/05/ | Hospital | [facility] | | | | 1993 | Encounter | MED CTR LABORATORY | | | | | | [address] | | | | | | [place] | | | | | | [address] | | | | | | [phone] | | | +--------+ + + + [...]
--- OUTSIDE RECORDS SUMMARY | ~2020-06-06 | XMS | Encounter Summary ---
Demographics + + + | Address | NEED ADDRESS | | | [place] [address] | + + + | Home Phone [...] + | Hector Garcia | ECON | [place] [address] | | + + + + + Care Team Providers + +------+ + | Care Slinger Sequins Name | Role | Phone | + [...] + + | Closed | Specialty | Physical | Diagnoses | Grider, | Grider, Antony | | | Services | Medicine and | Numbness of | Antony E A, MD | E A, MD [address] | | | Required | Rehabilitatio | left hand | [address] | | | | n | Procedures | [address] | [place], | | | | | DOS 11/02/17 | [place], | [place] [address] | | | | | | [place] [address] | Phone: | | | | | | Phone: | [phone] | | | | | | [phone] | Fax: | | | | | | Fax: | [phone] | | | | | | [phone] | | +--------+ + + + + + Evaluate & Treat (Routine) +--------+ + + + + + | Status | Reason | Specialty | Diagnoses / | Referred By | Referred To | | | | | Procedures | Contact | Contact | +--------+ + + + + + | Closed | Specialty | Physical | Diagnoses | Grider, | | | | Services | Therapy | Chronic | Antony Powell MD | PHYSICAL | | | Required | | midline low | [address] | THERAPY - | | | | | back pain | [address] | [place] | | | | | with | [place], | [place] | | | | | right-sided | [place] [address] | [address] | | | | | sciatica | Phone: | ST | | | | | Right leg | [phone] | [facility] | | | | | weakness | Fax: | [place], [place] | | | | | Right leg | [phone] | [address] | | | | | numbness | | Phone: | | | | | Procedures | | [phone] | | | | | HIM 3/8 | | Fax: | | | | | | | [phone] | +--------+ + + + + + Reason for Visit + + + | Reason | Comments | + + + | Back Pain | Lower back pain that radiates into the right leg | + + + | Joint Pain | | + + + Evaluate & Treat (Routine) +--------+--------+ + + + + | Status | Reason | Specialty | Diagnoses / | Referred By | Referred To | | | | | Procedures | Contact | Contact | +--------+--------+ + + + + | Closed | | Physical | Diagnoses | Lisbet, | Antony Grider | | | | Medicine and | OA | Loi | Andreea Powell MD [address] | | | | Rehabilitatio | (osteoarthri | PA-C [address] | | | | n | tis) Body | [place] | [place], | | | | | aches | [place] | [place] [address] | | | | | History of | [place] | Phone: | | | | | prostate | [address] | [phone] | | | | | cancer | Phone: | Fax: | | | | | | [phone] | [phone] | | | | | | Fax: | | | | | | | [phone] | | +--------+--------+ + + + + Encounter Details +--------+---------+ + + + | Date | Type | Department | Care Team | Description | +--------+---------+ + + + | 10/13/ | Office | [facility] | Antony Grider, | Chronic midline low | | 2018 | Visit | PHYSIATRY [address] | MD [address] | back pain with | | | | [address] | [place] | right-sided sciatica | | | | [place] | [id number] | (Primary Dx); Right | | | | [address] | | leg weakness; Right | | | | [phone] | | leg numbness; | | | | | | Numbness of left | | | | | | hand; Right hand | | | | | | weakness; Tobacco | | | | | | dependence | +--------+---------+ + + + Social History [...] + + +---------+ + | No | 14 Cans of beer 0 | 14.0 | 6 pack of beer a | | | Standard drinks or | | day/Recovering | | | equivalent | | Alcoholic | + + +---------+ + + + [...] + + + | Blood Pressure | 129/75 | 10/13/2017 8:42 AM | | | | | PST | | + + + + + | Pulse | 101 | 10/13/2017 8:42 AM | | | | | PST | | + + + + + | Temperature | - | - | | + + + + + | Respiratory Rate | - | - | | + + + + + | Oxygen Saturation | - | - | | + + + + + | Inhaled Oxygen | - | - | | | Concentration | | | | + + + + + | Weight | 94.8 kg (209 lb) | 10/13/2017 8:42 AM | | | | | PST | | + + + + + | Height | 175.3 cm (5' 9") | 10/13/2017 8:42 AM | | | | | PST | | + + + + + | Body Mass Index | 30.86 | 10/13/2017 8:42 AM | | | | | PST | | + + + + + documented in this encounter Patient Instructions Patient Instructions Emeli Redding, Instructional Support Assistant - 10/13/2017 8:40 AM PSTSet a quit date and work towards cessation of smoking. Physical therapy has been prescribed. Please participate in physical therapy. If you have not be contacted for an appointment with physical therapy within one week, please contact [facility]. Once you have completed physical therapy please continue the home exercise progr am as outline by physical therapy, indefinitely. Laboratory tests have been requested. Please go to the lab to complete your laboratory keyona ting. The results of your laboratory testing will be reviewed at your next appointment. If your labratory results demonstrate any emergent results the clinic will contact you. X-rays have been requested. Please go to the x-ray department after your appointment to co mplete these x-rays. The results of your x-rays will be reviewed at your next appointment. If your x-rays demonstrate any emergent results, the clinic will contact you. Please attend your scheduled nerve conduction study and EMG appointment. Nerve conduction studies and EMG require a great deal of time to complete. If you will be unable to make your appointment please contact the clinic at least one full business day sixto or to your appointment . Missed appoints without cancellation will only be re scheduled once. Children under the age of 13 are not permitted in the room during the nerve study. If acco mpanied by children under the age of 13, they will need an adult to supervise them, while th ey wait in the lobby. Prior to your appointment wash the skin with soap and water. This is to remove any of the natural oils on the skin which may interfere with the completion of the study. Please do not wear any lotion prior to the study as lotion may also interfere with the comp letion of the study. When attending your study please bring appropriate attire. If you are having a study of th e upper extremities please bring a short sleeve shirt to wear during the study. If you are having a study of the lower extremities please bring shorts to wear during the study. At the time of your study, please remind the physician if you are taking any blood thinning medications such as Coumadin, or heparin. At the time of your study, please remind the physician if you have an implanted electronic device such as a pacemaker. documented in this encounter Progress Notes Antony Grider MD - 10/13/2017 8:40 AM PSTFormatting of this note might be different fro m the original. Antony Grider MD [address] [place] [address], [address] [place], [place] [id number] FAX: PHYSICAL MEDICINE AND REHABILITATION H&P CHIEF COMPLAINT: Chief Complaint Patient presents with Back Pain Lower back pain that radiates into the right leg Joint Pain HISTORY OF PRESENT ILLNESS: Mani Garcia s a 52 y.o. male being seen today at the [facility] of Loi Frausto PA-C for the complaint of joint pain, back pain that began roughly 4 years ago. He also has complain and concern about left hand numbness. Mani Garcia rep orts not receiving radiation therapy, and had his prostate removed roughly 3 years ago. He has been on Androgen Deprivation Therapy (ADT). He indicates that the symptoms have been gra dually worsening. He reports that his back pain with right leg numbness began to worsen abou t 2-3 weeks ago. He reports that numbness has also been constant. Mani Garcia also repo rts right groin pain. Mani Garcia reports having back surgery 20+ years ago. Mani Garcia reports left hand numbness in the second through fourth digits. Mani Garcia reports having right hand fracture and receiving surgery on that hand which they place d screws in the 1-2 digits. He reports known weakness in his right hand since that surgery. He reports that he has an upcoming appointment to discuss left hand numbness With Dr.Willar lui. Mani Garcia reports elevating his right leg and relaxing helps with the pain in his margarette k and lower extremities for a short duration of time before the pain reoccurs. Mani hummel mentions he has been noticing that his back and other joints are popping more frequently since he has been receiving the ADT therapy for prostate cancer. He reports that he was min d to take calcium and vitamin D, but he hasn't been doing it routinely. After being informe d about his increased risk of osteoporosis while being on ADT, he agrees to take it more rou tinely. He reports that he didn't know why he was supposed to take calcium and vitamin D un til the explanation provided today. Mani Garcia reports that he has an appointment for a sleep study to evaluate for sleep apnea. Mani Garcia reports he has quit drinking alcohol about 3 months ago. He also reports no ticeably gaining 30 pounds within that time. Mani Garcia informed us that his [facility] oncol ogist Simran Osman and his primary care provider Loi Frausto PA-C is incharge of co s medications such as amitriptyline, cymbalta and trazodone . Mani Garcia reports having severe dry mouth everyday. We reviewed that dry mouth can be a side effect of several of h is medications, especially amitriptyline. He was advised to talk to his prescribing doctor about his severe dry mouth. We dicussed the risk of dry mouth including poor dentition, ora l disease, and increased cardiovascular risk associated with poor dentition. Mani Garcia rates the pain as severe. The symptoms are continuous. Mani Garcia de scribes the pain as aching, numbing, pulsating, sharp, throbbing and tingling. Mani Garcia describes leg symptoms that occur on his and right side. The leg symptoms are constant and the symptoms travel from the from the lower back into the front of the [facility] and sometime radients into past the knee. The patient does report numbness in the right lower extremity. He does report weakness of the right lower extremity Mani Garcia does not report any change in bowel or bladder function or saddle anesthesi a recently. His symptoms improve with nothing. His symptoms worsen with sitting, walking, running, kneeling, bending and twisting. Mani Garcia has tried NSAIDS, Cymbalta, amitriptyline, trazodone. Mani Garcia rep orts no resent course of physical therapy. Today we reviewed other risks of ADT including loss of muscle mass, increase of adipose/sánchez ght. We discussed increased risk of diabetes, elevated cholesterol, heart attack, etc. We reviewed the benefits of ADT. PAST MEDICAL HISTORY: Past Medical History: Diagnosis Date Alcoholism (HCC) Alopecia Androgen deprivation therapy Anxiety and depression Body aches Cerebral artery occlusion with cerebral infarction (HCC) Elevated PSA Essential hypertension, benign GERD (gastroesophageal reflux disease) Hyperlipemia Insomnia Mixed, or nondependent drug abuse Nicotine addiction Organic insomnia NAHUN (obstructive sleep apnea) no CPAP Osteoarthritis Polyp, sigmoid colon Prostate cancer (HCC) 11/24/2013 Radical prostatectomy Stroke (HCC) 2012 Left sided numbness and weakness TIA (transient ischemic attack) Tobacco use Tongue ulcer Unspecified osteoarthritis, unspecified site PAST SURGICAL HISTORY: Past Surgical History: Procedure Laterality Date COLONOSCOPY N/A 06/10/2017 Procedure: COLONOSCOPY; Surgeon: Saul Valentine MD; Location: [facility] LUMBAR DISCECTOMY 1993 ORTHOPEDIC SURGERY Right 2008 thumb PROSTATECTOMY 08/01/14 CURRENT MEDICATIONS: Current Outpatient Prescriptions Medication Sig Dispense Refill acetaminophen (TYLENOL) 325 mg tablet Take 650 mg by mouth every 6 hours as needed. amitriptyline (ELAVIL) 10 mg tablet as needed aspirin 81 MG EC tablet Take 1 tablet by mouth Daily. cyclobenzaprine (FLEXERIL) 10 mg tablet take 1 tablet by mouth twice a day NEEDED FO R MUSCLE SPASMS FOR UP TO 20 DAYS 0 DULoxetine (CYMBALTA) [address] capsule Take 60 mg by mouth Daily. fluticasone (FLONASE) 50 mcg/nasal spray 1 spray by Nasal route Daily. hydroCHLOROthiazide 25 mg tablet Take 37.5 mg by mouth Daily. losartan (COZAAR) 50 mg tablet take 1 tablet by mouth once daily (Patient taking differ ently: take 2 tablet by mouth once daily) 90 tablet 3 naproxen (NAPROSYN) 500 mg tablet Take 500 mg by mouth 2 times daily. 0 omeprazole (PRILOSEC) 20 mg capsule take 1 capsule by mouth daily prn 0 ondansetron (ZOFRAN) 4 mg tablet Take 4 mg by mouth as needed. oxybutynin (DITROPAN-XL) 10 MG 24 hr tablet Take 1 tablet by mouth as needed. pravastatin (PRAVACHOL) 40 MG tablet take 1 tablet by mouth every evening 0 sodium chloride (OCEAN) 0.65% nasal spray 1-2 sprays by Nasal route as needed. traZODone (DESYREL) 50 mg tablet Take 50-100 mg by mouth nightly. No current facility-administered medications for this visit. ALLERGIES: No Known Allergies SOCIAL HISTORY: The patient reports that he has been smoking Cigarettes. He has a 21.00 pack-year smoking history. He has never used smokeless tobacco. He reports that he does not drink alcohol or use drugs. FAMILY HISTORY: Family History Problem Relation Age of Onset Breast cancer Mother Cervical cancer Mother Multiple sclerosis Father age 50 d/t MS complications Cancer Father High blood pressure Father Cancer Sister 40 Recurrent Lymphoma Breast cancer Sister No Known Problems Sister High blood pressure Brother No Known Problems Son High blood pressure Brother No Known Problems Brother No Known Problems Son No Known Problems Maternal Grandmother No Known Problems Maternal Grandfather No Known Problems Paternal Grandmother No Known Problems Paternal Grandfather Alcohol abuse Other Arthritis Other Prostate cancer Neg Hx REVIEW OF SYSTEMS: ROS GENERALLY: No fever, no night sweats, no anemia, no fatigue, no recent profound weight ch anges. EYES: No eye problems, no use of corrective lenses, no eye injury, no double vision, no bl indness. EARS, NOSE, AND THROAT: No changes in taste or smell, + hearing difficulty, no ringing in the ears, no ear drainage, + dizziness, no voice changes, no difficulty swallowing, + signif icant snoring, no sleep apnea, + sinus problems, + major dental work. NEUROLOGICALLY:The patient has no numbness/pain of arms, no numbness/pain of legs, no awake with numbness/pain, no weakness, + muscle aching, + coordination difficulty, no change in w alk, no head injury, no neck injury, + back injury, no pain in neck, no pain in back, no str idania, no fainting spells, no loss of consciousness, no tremor/shaking, no seizures, no headac hes, no migraine, no memory loss, no speech difficulty, + confusion and no numbness of face. PSYCHIATRIC: + depression, + Difficulty sleeping, no sleep disorders, + anxiety, no bipola r disorder, no psychotic episodes. CARDIOVASCULAR: No heart attacks, no heart murmur, no heart fluttering, no chest pain, no ankle swelling. LUNG DISEASE: No shortness of breath, no cough, no tuberculosis, no bloody cough, no asth ma, no emphysema/COPD. GASTROINTESTINAL: No bowel disease, no nausea or vomiting, no rectal bleeding, no constipa tion, no stool incontinence, no liver disease, no gallbladder disease, no abdominal pain, no ulcers. KIDNEY DISEASE: + urinary frequency, no painful or difficult urination, no incontinence. ENDOCRINE: No diabetes, no thyroid disease, no osteopenia or osteoporosis, no breast drain age. SKIN: No breast lumps, no skin changes, + rashes, + itches. HEMATOLOGIC/LYMPHATIC: No enlarged lymph nodes, no easy or unusual bleeding, no personal h istory of cancer. RHEUMATOLOGIC: + joint arthritis, no rheumatoid arthritis. PHYSICAL EXAMINATION: Blood pressure 129/75, pulse 101, height 1.753 m (5' 9"), weight 94.8 kg (209 lb). Body mas s index is 30.86 kg/m. GENERAL: He does appear uncomfortable when seated. HEENT: HEAD/FACE: EYES: Normocephalic and atraumatic. There are no areas of recent trauma. Normal sclerae without icterus. SKIN There are scars in the L5 midline region. CHEST: The patient is in no acute respiratory distress with unlabored respirations. HEART: There is not lower extremity edema. ABDOMEN: The patient is overweight. NEUROLOGIC: The patient is awake, alert, and oriented to time, place, person. He follows simple and complex commands. His speech is fluent. He comprehends speech well. He has no apparent deficits with short or alf memory. He has appropriate fund of knowledge Cranial nerves appear grossly intact. Sensory exam: Decrease sensation over all aspects of right lower extremity to monofilament touch. Decreased sensation over L5 dermatome in left lower extremity to monofilament touch. Subjective decreased sensation in median distrubution to monofilament touch in upper left e xtremity in the second through fourth digits. 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 REFLEX: RIGHT LEFT Brachioradialis 1+ 2 BICEP 1+ 2+ PATELLAR 2+ 3+ ACHILLES 1+ 1+ PLANTAR Downgoing Downgoing MUSCULOSKELETAL Tenderness over right low back region of L5-S1. RADIOGRAPHIC REVIEW: There is no new imaging to review at this time. IMPRESSION: 1. Chronic midline low back pain with right-sided sciatica 2. Right leg weakness 3. Right leg numbness 4. Numbness of left hand 5. Right hand weakness 6. Tobacco dependence PLAN: 1. Mani Garcia was seen today for the complaints of low back pain. We discussed treatme nts options for low back pain include physical therapy, medication and weight loss. Steroid injections and surgery will not be considered at this time. May be considered in the near fu ture if pain persists and has failed treatments. 2. Mani Garcia will have lumbar xray to evaluate for spondylosis and instibility. Duncan Garcia has history of back surgery. X-ray may also evaluate for lumbar vertebral fractu re. We discussed increased risk of osteoporosis while on ADT. 3. Mani Garcia will begin to participate in physical therapy focusing on core and lower extremity strengthening. Mani Garcia was encouraged to work toward weight loss and buil ding muscle mass. We discussed that loss of muscle and increased weight associated with his ADT may be contributing to his back pain development. If symptoms persists following physical therapy may consider obtaining lumbar MRI. 3. Mani Garcia mentioned left hand numbness. Diagnosis include but is not limited to; carpal tunnel syndrome. Carpal tunnel syndrome may present as the first sign of diabetes. To day we reviewed that the nerve study will hopefully help us localize the origin of symptoms. We discussed that if carpal tunnel syndrome is discovered, that the nerve study can help d etermine if the carpal tunnel syndrome is mild, moderate or severe. We discussed that if ca rpal tunnel is mild the treatments tend to be conservative such as antiinflammatories, hand therapy, wrist splints and sometimes steroid injection. We discussed that moderate and ciro re carpal tunnel syndrome generally require surgical release. We discussed that with severe carpal tunnel syndrome there may be permanent damage to the nerve that does not resolve chan pite adequate surgical release. We discussed natural progress of carpal tunnel syndrome. W andreea reviewed that carpal tunnel if left untreated, tends to get progressively worse over time. We discussed that if severe carpal tunnel syndrome is left untreated that the amount of pe rmanent nerve damage can get worse leading to worse disability. Today we discussed how to prepare for nerve conduction study and EMG. We discussed not wea ring lotion and bringing a short sleeve shirt to wear. We discussed the process of the test , which involves small shocks to the nerves and that the study may include pin sticks, witho ut shock into the muscles. Mani Garcia will have 2 hour glucose tolerance test to evaluate for diabetes. We disc ussed the association between diabetes and carpal tunnel syndrome. We discussed that he may be at increased risk for diabetes because of his ADT. Mani Garcia was encouraged to co ntinue wearing his carpal tunnel hand splints and to wear them at night, only at night, ever y night, never during waking hours. Make sure they are not too tight. They only need to pr event the wrists from bending during sleep. 4. Mani Garcia was informed on some side effects from receiving his ADT treatment which may include but are not limited to: high cholesterol, high blood sugar, lose of bone mass w hich may further into osteoporosis, weight gain and loss of muscle mass. Mnai Garcia was encouraged to continue with supplementation calcium and vitamin D. We discussed the patholo gy of ADT treatment requires a consistent diet and exercise program. Mani Garcia should continue working towards weight loss and incorporating physical therapy exercises at home in definitely. 5. Mani Garcia was advised to coordinate with his primary care provider Loi painting PA-C and his oncologist at [facility] Simran Osman about reconsider use of Trazodone, Cymb rosalind and Amitriptyline due to excessive dry mouth. Mani Garcia may have side effect of tardive dyskinesia. He was noted to protrude his t ongue out multiple times during today's visit. He is not currently on metoclopramide or pro methazine. The history of when or why he started protruding his tongue is unclear. Mani Garcia is not sure when it started. He reports that he does it because his mouth is very dry. He reports that his mouth became very dry after starting amitriptyline. Once again he was asked to review this concerning finding with his PCP and oncologist. 6. Greater than 3 minutes were spent discussing tobacco cessation today. Discussed with Mauricio Garcia the risks of and potential degenative changes of spine. Discussed with Mani Garcia of possible quitting techniques of setting a specific quit date and tapering down th e amount of cigarettes he smokes per day and slowly tapering down to nothing when he reaches the set quit date. Mani Garcia was encouraged to not give up and when it gets difficult to quit to not give up and to keep trying. 7. Mani Garcia will return to clinic for left upper extremity nerve conduction study. Thank you for allowing me to be involved in the care of your patient. If you have any ques tions regarding the care of your patient please don't hesitate to call. Approximately 60 minutes was spent face to face with Mani Garcia, over half of which wa s spent formulating and discussing their medical treatment plan. IAntony MD personally performed the services described in this documentation, as scribed by in my presence, ISIDRA Chahal and are both accurate and complete. Antony Grider MD - 10/13/2017 documented in this en counter Plan of Treatment + + +--------+ + + | Name | Type | Priori | Associated Diagnoses | Order Schedule | | | | ty | | | + + +--------+ + + | Physical Therapy - | Outpatient | Routin | Chronic midline | Ordered: 10/13/2017 | | Ambulatory Referral | Referral | e | low back pain with | | | | | | right-sided sciatica | | | | | | Right leg weakness | | | | | | Right leg numbness | | + + +--------+ + + | * [facility] [place] | Outpatient | Routin | Numbness of left | Ordered: 10/13/2017 | | Physiatry - AMB | Referral | e | hand | | | Referral | | | | | + + +--------+ + + documented as of this encounter Results XR Lumbar Spine 4 + Vw (10/13/2017 9:50 AM PST) + + | Specimen | + + | | + + + + + | Narrative | Performed At | + + + | CLINICAL INFORMATION: back pain. COMPARISON: CT dated | [facility] | | 07/20/2017. FINDINGS: AP and lateral views of the | | | lumbosacral spine including lateral flexion and extension views.. | | | Number of lumbar-type vertebrae: 5 Alignment: Normal. No | | | listhesis. No abnormal translation with flexion or extension. | | | Vertebral bodies: Normal in height. No vertebral fracture. Disk | | | spaces: Mild disc height loss at L3-L4. Severe disc height loss at | | | L4-L5 and L5-S1. Facet joints: Moderate facet arthrosis at L4-L5 | | | and L5-S1. Soft tissues: Pelvic surgical clips are noted. | | | IMPRESSION - Multilevel degenerative changes of the lumbar spine, | | | most notable at L4-L5 and L5-S1 with severe degenerative disc | | | disease. Dictated and Signed by: Melchor Marie MD | | | Electronically signed: 10/13/2017 11:01 AM | | + + + + + | Procedure Note | + + | Frank, Rad Results In - 10/13/2017 11:04 AM PST | | CLINICAL INFORMATION: back pain. | | | | COMPARISON: CT dated 07/20/2017. | | | | FINDINGS: | | AP and lateral views of the lumbosacral spine including lateral flexion and | | extension views.. | | | | Number of lumbar-type vertebrae: 5 | | | | Alignment: Normal. No listhesis. No abnormal translation with flexion or | | extension. | | | | Vertebral bodies: Normal in height. No vertebral fracture. | | | | Disk spaces: Mild disc height loss at L3-L4. Severe disc height loss at L4-L5 | | and L5-S1. | | | | Facet joints: Moderate facet arthrosis at L4-L5 and L5-S1. | | | | Soft tissues: Pelvic surgical clips are noted. | | | | | | IMPRESSION - | | | | Multilevel degenerative changes of the lumbar spine, most notable at L4-L5 and | | L5-S1 with severe degenerative disc disease. 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
--- OUTSIDE RECORDS SUMMARY | ~2020-06-06 | XMS | Encounter Summary ---
Demographics + + + | Address | NEED ADDRESS | | | [place] [address] | + + + | Home Phone | | + + + | Preferred Language | Unknown | + + + | Marital Status | Single | + + + | Scientology Affiliation | Unknown | + + + | Race | White | + + + | Ethnic Group | Not or | + + + Author + + + | Author | [facility] | | | and [place] | + + + | Organization | [facility] | | | and [place] | + [...] Hector Garcia | ECON | [place] [address] | | + + + + + Care Team Providers + +------+ + | Care Electrical Troubleshooter Name | Role | Phone | + +------+ + | Aryan Grossman MD | PCP | | + +------+ + Reason for Visit + + + | Reason | Comments | + + + | Follow-up | 2 month | + + + | Medication Refill | Would like refill on Ambien | + + + Encounter Details +--------+---------+ + + + | Date | Type | Department | Care Team | Description | +--------+---------+ + + + | 08/25/ | Office | [facility] | Aryan Grossman, | Insomnia, | | 2014 | Visit | MEDICINE [facility] | [address] | unspecified insomnia | | | | [address] [place], | [address], | (Primary Dx); | | | | [place] [address] | [place] [address] | Alcoholism (HCC); | | | | [phone] | [phone] | Essential | | | | | | hypertension; | | | | | | Prostate cancer | | | | | | (HCC); Cigarette | | | | | | nicotine dependence | | | | | | without complication | +--------+---------+ + + + Social History [...] + | Blood Pressure | 160/110 | 08/25/2015 1:16 PM | | | | | PST | | + + + + + | Pulse | 92 | 08/25/2015 1:16 PM | | | | | PST | | + + + + + | Temperature | 36.7 C (98.1 F) | 08/25/2015 1:16 PM | | | | | PST | | + + + + + | Respiratory Rate | 16 | 08/25/2015 1:16 PM | | | | | PST | | + + + + + | Oxygen Saturation | 98% | 08/25/2015 1:16 PM | | | | | PST | | + + + + + | Inhaled Oxygen | - | - | | | Concentration | | | | + + + + + | Weight | 90.3 kg (199 lb) | 08/25/2015 1:16 PM | | | | | PST | | + + + + + | Height | 175.3 cm (5' 9") | 08/25/2015 1:16 PM | | | | | PST | | + + + + + | Body Mass Index | 29.39 | 08/25/2015 1:16 PM | | | | | PST | | + + + + + documented in this encounter Progress Notes Aryan Grossman MD - 08/25/2015 1:50 PM PSTFormatting of this note might be different f rom the original. Subjective: Patient ID: Mani Garcia is a 50 y.o. male. HPI HTN, there is no recent chest pain SOB ankle swelling etc. He is compliant with his meds. Depression and Anxiety, He is but now taking sertraline. He has difficult sleep and somet imes his mind does not shut off at night. Alcoholism, he has Still not been drinking. He is almost done with alcohol classes. PMH: HTN Hyperlipidemia Alcoholism PSH: Right thumb 2007 Lumbar Diskectomy 1992 Fhx: Mom 64 Ovarian Cancer Dad 50 of MS complications Sister 54, recurrent lymphoma,. First diagnosed with cancer in 40's Shx: Born in [place] , 16 year old son Lives in [place] since 2012, Grew up in [place] heavy [...] for suicidal ideas,no confusion and no agitation. some Depression, no anxiety,no sleep problems Objective: Physical Exam Heent, WNL, No carotid bruit Chest CTAB Heart RR&R /s M Abd S,NT,ND,BS+ Ext, no CCor E Neuro Non-focal Lymph, no cervical, axillary, inguinal adenopathy Musculoskeletal, no gross deformity or loss or range of motion Skin, no gross lesions Assessment: 1. Insomnia, unspecified insomnia zolpidem (AMBIEN) 10 mg tablet 2. Alcoholism (HCC) 3. Essential hypertension 4. Prostate cancer (HCC) 5. Cigarette nicotine dependence without complication Plan: RTC 3 months , labs today. Otherwise continue current medical regimen. documented in this encounter Plan of Treatment Not on filedocumented as of this encounter Results CBC with Differential (08/25/2015 2:24 PM PST) + +-------+ + + + | Component | Value | Ref Range | Performed | Pathologist | | | | | At | Signature | + +-------+ + + + | White Blood | 7.8 | 4.0 - 11.0 K/uL | [facility] | | | Cells | | | [facility] | | | | | | [facility] | | | | | [facility] - | | | | | | LABORATORY | | + +-------+ + + + | Red Blood | 4.94 | 4.30 - 5.70 | [facility] | | | Cells | | M/uL | [facility] | | | | | | [facility] | | | | | | [facility] - | | | | | | LABORATORY | | + +-------+ + + + | Hemoglobin | 16.6 | 13.5 - 18.0 | [facility] | | | | | g/dL | [facility] | | | | | | [facility] | | | | | | [facility] - | | | | | | LABORATORY | | + +-------+ + + + | Hematocrit | 49.2 | 40.0 - 51.0 % | [facility] | | | | | | [facility] | | | | | | [facility] | | | | | | [facility] - | | | | | | LABORATORY | | + +-------+ + + + | MCV | 99.6 | 83.0 - 101.0 fL | [facility] | | | | | | [facility] | | | | | | [facility] | | | | | | [facility] - | | | | | | LAB[facility]ATORY | | + +-------+ + + + | MCH | 33.5 | 28.0 - 35.0 pg | [facility] | | | | | | [facility] | | | | | | [facility] | | | | | | [facility] - | | | | | | LAB[facility]ATORY | | + +-------+ + + + | MCHC | 33.6 | 32.0 - 36.0 | [facility] | | | | | g/dL | [facility] | | | | | | [facility] | | | | | | [facility] - | | | | | | LABORATORY | | + +-------+ + + + | RDW-CV | 13.2 | <15.0 % | [facility] | | | | | | [facility] | | | | | | [facility] | | | | | | [facility] - | | | | | | LABORATORY | | + +-------+ + + + | Platelet | 253 | 140 - 440 K/uL | [facility] | | | Count | | | [facility] | | | | | | [facility] | | | | | | [facility] - | | | | | | LAB[facility]ATORY | | + +-------+ + + + | MPV | 7.9 | fL | [facility] | | | | | | [facility] | | | | | | [facility] | | | | | | [facility] - | | | | | | LAB[facility]ATORY | | + +-------+ + + + | % | 69.2 | 45.0 - 82.0 % | [facility] | | | Neutrophils | | | [facility] | | | | | | [facility]ICAL | | | | | | C[facility] - | | | | | | LABORATORY | | + +-------+ + + + | % | 20.9 | 20.0 - 45.0 % | [facility] | | | Lymphocytes | | | [facility] | | | | | | [facility] | | | | | | C[facility] - | | | | | | LABORATORY | | + +-------+ + + + | % Monocytes | 7.4 | 4.0 - 12.0 % | [facility] | | | | | | [facility] | | | | | | [facility] | | | | | | [facility] - | | | | | | LABORATORY | | + +-------+ + + + | % | 1.8 | 0.0 - 5.0 % | [facility] | | | Eosinophils | | | [facility] | | | | | | [facility] | | | | | | [facility] - | | | | | | LABORATORY | | + +-------+ + + + | % Basophils | 0.7 | 0.0 - 1.0 % | [facility] | | | | | | [facility] | | | | | | [facility] | | | | | | [facility] - | | | | | | LABORATORY | | + +-------+ + + + | Absolute | 5.40 | 1.80 - 8.50 | [facility] | | | Neutrophils | | K/uL | [facility] | | | | | | MEDICAL | | | | | | CENTER - | | | | | | LABORATORY | | + +-------+ + + + | Absolute | 1.60 | 0.60 - 3.20 | [facility] | | | Lymphocytes | | K/uL | [facility] | | | | | | MEDICAL | | | | | | CENTER - | | | | | | LABORATORY | | + +-------+ + + + | Absolute | 0.60 | 0.00 - 1.00 | [facility] | | | Monocytes | | K/uL | [facility] | | | | | | [facility] | | | | | | CENTER - | | | | | | LABORATORY | | + +-------+ + + + | Absolute | 0.10 | 0.00 - 0.40 | [facility] | | | Eosinophils | | K/uL | [facility] | | | | | | [facility] | | | | | | [facility] - | | | | | | LABORATORY | | + +-------+ + + + | Absolute | 0.10 | 0.00 - 0.10 | [facility] | | | Basophils | | K/uL | [facility] | | | | | | MEDICAL | | | | | | CENTER - | | | | | | LABORATORY | | + +-------+ + + + + + | Specimen | + + | Blood | + + + + + + + | Performing | Address | City/State/Zipcode | Phone Number | | Organization | | | | + + + + + | [facility] | [address] | [place] | [phone] | | [facility] | | [address] | | | - LABORATORY | | | | + + + + + Comprehensive Metabolic Panel (08/25/2015 2:24 PM PST) + + + + + + | Component | Value | Ref Range | Performed | Pathologist | | | | | At | Signature | + + + + + + | Na | 138 | 136 - 149 | [facility] | | | | | mmol/L | [facility] | | | | | | [facility] | | | | | | CENTER - | | | | | | LABORATORY | | + + + + + + | K | 4.0 | 3.5 - 5.1 | [facility] | | | | | mmol/L | [facility] | | | | | | [facility] | | | | | | CENTER - | | | | | | LABORATORY | | + + + + + + | Cl | 104 | 98 - 109 mmol/L | [facility] | | | | | | [facility] | | | | | | MEDICAL | | | | | | C[facility] - | | | | | | LABORATORY | | + + + + + + | CO2 | 26 | 24 - 31 mmol/L | [facility] | | | | | | [facility] | | | | | | [facility] | | | | | | C[facility] - | | | | | | LABORATORY | | + + + + + + | Anion Gap | 8 | 3 - 16 mmol/L | [facility] | | | | | | [facility] | | | | | | [facility] | | | | | | C[facility] - | | | | | | LABORATORY | | + + + + + + | Glucose | 99 | 70 - 109 mg/dL | [facility] | | | | | | [facility] | | | | | | [facility] | | | | | | C[facility] - | | | | | | LABORATORY | | + + + + + + | BUN | 21 (H) | 7 - 18 mg/dL | [facility] | | | | | | [facility] | | | | | | MEDICAL | | | | | | CENTER - | | | | | | LABORATORY | | + + + + + + | Creatinine | 0.85 | 0.60 - 1.30 | [facility] | | | | | mg/dL | [facility] | | | | | | MEDICAL | | | | | | CENTER - | | | | | | LABORATORY | | + + + + + + | eGFR, | >60Comment: GLOMERULAR | >=60 | [facility] | | | non- | FILTRATION | mL/min/1.73m2 | [facility] | | | [place] | RATE,ESTIMATED | | MEDICAL | | | | mL/min/1.82a3Cgss than | | CENTER - | | | | 60 Chronic kidney | | LABORATORY | | | | disease,if found over a | | | | | | 3-month period.Less than | | | | | | 15 Kidney failureFor | | | | | | | | | | | | Americans,multiply the | | | | | | calculated GFR by 1.21. | | | | | | | | | | + + + + + + | Calcium | 9.5 | 8.3 - 10.5 | [facility] | | | | | mg/dL | [facility] | | | | | | MEDICAL | | | | | | CENTER - | | | | | | LABORATORY | | + + + + + + | Albumin | 4.4 | 3.2 - 5.0 g/dL | [facility] | | | | | | [facility] | | | | | | [facility]ICAL | | | | | | CENTER - | | | | | | LABORATORY | | + + + + + + | Bilirubin | 1.1 | 0.1 - 1.5 mg/dL | [facility] | | | Total | | | [facility] | | | | | | MEDICAL | | | | | | CENTER - | | | | | | LABORATORY | | + + + + + + | Total | 7.3 | 6.0 - 7.8 g/dL | [facility] | | | Protein | | | [facility] | | | | | | MEDICAL | | | | | | CENTER - | | | | | | LABORATORY | | + + + + + + | AST | 26 | 10 - 42 U/L | [facility] | | | | | | [facility] | | | | | | MEDICAL | | | | | | CENTER - | | | | | | LABORATORY | | + + + + + + | ALT | 22 | 6 - 45 U/L | [facility] | | | | | | [facility] | | | | | | MEDICAL | | | | | | CENTER - | | | | | | LABORATORY | | + + + + + + | Alkaline | 86 | 40 - 110 U/L | [facility] | | | Phosphatase | | | [facility] | | | | | | MEDICAL | | | | | | CENTER - | | | | | | LABORATORY | | + + + + + + | Globulin | 2.9 | g/dL | [facility] | | | | | | [facility] | | | | | | MEDICAL | | | | | | CENTER - | | | | | | LABORATORY | | + + + + + + | Albumin/Nancy | 1.5 | | [facility] | | | bulin Ratio | | | [facility] | | | | | | MEDICAL | | | | | | CENTER - | | | | | | LABORATORY | | + + + + + + | BUN/Creatin | 24.7 | | [facility] | | | ine Ratio | | | [facility] | | | | | | MEDICAL | | | | | | CENTER - | | | | | | LABORATORY | | + + + + + + + + | Specimen | + + | Blood | + + + + + + + | Performing | Address | City/State/Zipcode | Phone Number | | Organization | | | | + + + + + | [facility] | [address] | [place], [place] | [phone] | | [facility] | | [address] | | | - LABORATORY | | | | + + + + + PSA, Diagnostic (08/25/2015 2:24 PM PST) + +-------+ + + + | Component | Value | Ref Range | Performed | Pathologist | | | | | At | Signature | + +-------+ + + + | PSA | 3.48 | <=4.00 ng/mL | [facility] | | | | | | [facility] | | | | | | MEDICAL | | | | | | CENTER - | | | | | | LABORATORY | | + +-------+ + + + + + | Specimen | + + | Blood | + + + + + + + | Performing | Address | City/State/Zipcode | Phone Number | | Organization | | | | + + + + + | [facility] | [address] | [place] | [phone] | | [facility] | | [address] | | | - LABORATORY | | | | + + + + + documented in this encounter Visit Diagnoses + + | Diagnosis | + + | Insomnia, unspecified insomnia - Primary | + + | Alcoholism (HCC) Other and unspecified alcohol dependence, unspecified drinking | | behavior | + + | Essential hypertension Unspecified essential hypertension | + + | Prostate cancer (HCC) Malignant neoplasm of prostate | + + | Cigarette nicotine dependence without complication Tobacco use disorder | + + documented in this encounter
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
--- OUTSIDE RECORDS SUMMARY | ~2020-06-06 | XMS | Encounter Summary ---
Demographics + + + | Address | NEED ADDRESS | | | [place] [address] | + + + | Home Phone | | + + + | Preferred Language | Unknown | + + + | Marital Status | Single | + + + | Hoahaoism Affiliation | Unknown | + + + | Race | White | + + + | Ethnic Group | Not or | + + + Author + + + | Author | [facility] | | | and [place] | + + + | Organization | [facility] | | | [...] Hector Garcia | ECON | [place] [address] | | + + + + + Care Team Providers + +------+ + | Care Physics And Astronomy Professor Name | Role | Phone | + +------+ + | Loi Frausto PA-C | PCP | | + +------+ + Encounter Details +--------+ + + + + | Date | Type | Department | Care Team | Description | +--------+ + + + + | 02/28/ | Imaging | [facility] | Provider, | | | 2018 | Exam | [facility] | MD [address] | | | | | IMAGING [address] | | | | | [address] [place] | [place] [address] | | | | | [place] [address] | | | | | | [phone] | | | +--------+ + + + [...] + +--------+ + + + | MRI PROSTATE W WO | Routin | 07/09/2014 | | Results for this | | CONTRAST | e | 5:30 PM | | procedure are in the | | | | PDT | | results section. | + +--------+ + + + documented in this encounter Results MRI Prostate w wo Contrast (07/09/2014 5:30 PM PDT) + + | Specimen | + + | | + + + + + | Narrative | Performed At | + + + | External films for comparison only | [facility] | | | | | No results will be in the chart. | | + + + + +---------+ + + | Performing | Address | City/State/Zipcode | Phone Number | | Organization | | | | + +---------+ + + | [facility] | | | | + +---------+ + + documented in this encounter Visit Diagnoses Not on filedocumented in this encounter"
--- OUTSIDE RECORDS SUMMARY | ~2020-06-06 | XMS | Encounter Summary ---
Demographics + + + | Address | NEED ADDRESS | | | [place] [address] | + + + | Home Phone [...] Author + + + | Author | [facility] | | | and [place] | + + + | Organization | [facility] | | | [...] Hector Garcia | ECON | [place] [address] | | + + + + + Care Team Providers + +------+ + | Care Aircraft Captain Name | Role | Phone | + +------+ + | Loi Frausto PA-C | PCP | | + +------+ + Encounter Details +--------+ + + + + | Date | Type | Department | Care Team | Description | +--------+ + + + + | 08/03/ | Orders Only | [facility] | Mulu Billingsley, | Prostate cancer | | 2018 | | [facility] | [employer] | ([facility]) (Primary Dx); | | | | [facility] [address] | | Bone metastasis | | | | [address] | | ([facility]) | | | | [place] [address] | | | | | | [phone] | | | +--------+ + + + [...] of this encounter Results CBC with Differential (08/31/2018 12:11 PM PST) + + + + + + | Component | Value | Ref Range | Performed | Pathologist | | | | | At | Signature | + + + + + + | White Blood | 6.3 | 4.0 - 11.0 K/uL | [facility] | | | Cells | | | [facility] | | | | | | MEDICAL | | | | | | CENTER - | | | | | | LABORATORY | | + + + + + + | Red Blood | 3.84 (L) | 4.30 - 5.70 | [facility] | | | Cells | | M/uL | [facility] | | | | | | MEDICAL | | | | | | CENTER - | | | | | | LABORATORY | | + + + + + + | Hemoglobin | 13.0 (L) | 13.5 - 18.0 | [facility] | | | | | g/dL | [facility] | | | | | | MEDICAL | | | | | | CENTER - | | | | | | LABORATORY | | + + + + + + | Hematocrit | 38.9 (L) | 40.0 - 51.0 % | [facility] | | | | | | [facility] | | | | | | MEDICAL | | | | | | CENTER - | | | | | | LABORATORY | | + + + + + + | MCV | 101.3 (H) | 83.0 - 101.0 fL | [facility] | | | | | | [facility] | | | | | | MEDICAL | | | | | | CENTER - | | | | | | LABORATORY | | + + + + + + | MCH | 33.9 | 28.0 - 35.0 pg | [facility] | | | | | | [facility] | | | | | | MEDICAL | | | | | | CENTER - | | | | | | LABORATORY | | + + + + + + | MCHC | 33.4 | 32.0 - 36.0 | [facility] | | | | | g/dL | [facility] | | | | | | MEDICAL | | | | | | CENTER - | | | | | | LABORATORY | | + + + + + + | RDW-CV | 13.0 | <15.0 % | [facility] | | | | | | [facility] | | | | | | MEDICAL | | | | | | CENTER - | | | | | | LABORATORY | | + + + + + + | RDW-SD | 48.3 (H) | 35.1 - 46.3 fL | [facility] | | | | | | [facility] | | | | | | MEDICAL | | | | | | CENTER - | | | | | | LABORATORY | | + + + + + + | Platelet | 312 | 140 - 440 K/uL | [facility] | | | Count | | | [facility] | | | | | | MEDICAL | | | | | | CENTER - | | | | | | LABORATORY | | + + + + + + | MPV | 8.7 | 6.5 - 12.4 fL | [facility] | | | | | | [facility] | | | | | | MEDICAL | | | | | | CENTER - | | | | | | LABORATORY | | + + + + + + | % | 55.5 | 45.0 - 82.0 % | [facility] | | | Neutrophils | | | [facility] | | | | | | MEDICAL | | | | | | CENTER - | | | | | | LABORATORY | | + + + + + + | % | 33.7 | 20.0 - 45.0 % | [facility] | | | Lymphocytes | | | [facility] | | | | | | MEDICAL | | | | | | CENTER - | | | | | | LABORATORY | | + + + + + + | % Monocytes | 6.8 | 4.0 - 12.0 % | [facility] | | | | | | [facility] | | | | | | MEDICAL | | | | | | CENTER - | | | | | | LABORATORY | | + + + + + + | % | 3.0 | 0.0 - 5.0 % | [facility] | | | Eosinophils | | | [facility] | | | | | | MEDICAL | | | | | | CENTER - | | | | | | LABORATORY | | + + + + + + | % Basophils | 0.8 | 0.0 - 1.0 % | [facility] | | | | | | [facility] | | | | | | MEDICAL | | | | | | CENTER - | | | | | | LABORATORY | | + + + + + + | % Immature | 0.2 | 0.0 - 0.4 % | [facility] | | | Granulocyte | | | [facility] | | | s | | | MEDICAL | | | | | | CENTER - | | | | | | LABORATORY | | + + + + + + | Absolute | 3.49 | 1.80 - 8.50 | [facility] | | | Neutrophils | | K/uL | [facility] | | | | | | MEDICAL | | | | | | CENTER - | | | | | | LABORATORY | | + + + + + + | Absolute | 2.12 | 0.60 - 3.20 | [facility] | | | Lymphocytes | | K/uL | [facility] | | | | | | MEDICAL | | | | | | CENTER - | | | | | | LABORATORY | | + + + + + + | Absolute | 0.43 | 0.00 - 1.00 | [facility] | | | Monocytes | | K/uL | [facility] | | | | | | MEDICAL | | | | | | CENTER - | | | | | | LABORATORY | | + + + + + + | Absolute | 0.19 | 0.00 - 0.40 | [facility] | | | Eosinophils | | K/uL | [facility] | | | | | | MEDICAL | | | | | | CENTER - | | | | | | LABORATORY | | + + + + + + | Absolute | 0.05 | 0.00 - 0.10 | [facility] | | | Basophils | | K/uL | [facility] | | | | | | MEDICAL | | | | | | CENTER - | | | | | | LABORATORY | | + + + + + + | Absolute | 0.01 | 0.00 - 0.03 | [facility] | | | Immature | | K/uL | [facility] | | | Granulocyte | | | MEDICAL | | | s | | | CENTER - | | | | | | LABORATORY | | + + + + + + | % nRBC | 0 | 0 - 2 per 100 | [facility] | | | | | WBC's | [facility] | | | | | | MEDICAL | | | | | | CENTER - | | | | | | LABORATORY | | + + + + + + | Absolute | 0.00 | 0.00 - 0.01 | [facility] | | | nRBC | | K/uL | [facility] | [...] + | [facility] | [address] | [place] | [phone] | | [facility] | | [address] | | | - LABORATORY | | | | + + + + + Comprehensive Metabolic Panel (08/31/2018 12:11 PM PST) + + + + + + | Component | Value | Ref Range | Performed | Pathologist | | | | | At | Signature | + + + + + + | Na | 137 | 136 - 149 | [facility] | | | | | mmol/L | [facility] | | | | | | MEDICAL | | | | | | CENTER - | | | | | | LABORATORY | | + + + + + + | K | 3.9 | 3.5 - 5.1 | [facility] | | | | | mmol/L | [facility] | | | | | [facility] | | | | | | CENTER - | | | | | | LABORATORY | | + + + + + + | Cl | 106 | 98 - 109 mmol/L | [facility] | | | | | | [facility] | | | | | | MEDICAL | | | | | | CENTER - | | | | | | LABORATORY | | + + + + + + | CO2 | 24 | 24 - 31 mmol/L | [facility] | | | | | | [facility] | | | | | | MEDICAL | | | | | | CENTER - | | | | | | LABORATORY | | + + + + + + | Anion Gap | 7 | 3 - 16 mmol/L | [facility] | | | | | | [facility] | | | | | | MEDICAL | | | | | | CENTER - | | | | | | LABORATORY | | + + + + + + | Glucose | 124 (H) | 70 - 109 mg/dL | [facility] | | | | | | [facility] | | | | | | MEDICAL | | | | | | CENTER - | | | | | | LABORATORY | | + + + + + + | BUN | 15 | 7 - 18 mg/dL | [facility] | | | | | | [facility] | | | | | | MEDICAL | | | | | | CENTER - | | | | | | LABORATORY | | + + + + + + | Creatinine | 0.85 | 0.60 - 1.30 | [facility] | | | | | mg/dL | [facility] | | | | | | MEDICAL | | | | | | CENTER - | | | | | | LABORATORY | | + + + + + + | eGFR, | >60Comment: GLOMERULAR | >=60 | [facility] | | | non- | FILTRATION | mL/min/1.73m2 | [facility] | | | French | RATE,ESTIMATED | | MEDICAL | | | | mL/min/1.90n3Fhrb than | | CENTER - | | [...] + + + + | Calcium | 9.3 | 8.3 - 10.5 | [facility] | | | | | mg/dL | [facility] | | | | | | MEDICAL | | | | | | CENTER - | | | | | | LABORATORY | | + + + + + + | Albumin | 3.7 | 3.2 - 5.0 g/dL | [facility] | | | | | | [facility] | | | | | | MEDICAL | | | | | | CENTER - | | | | | | LABORATORY | | + + + + + + | Bilirubin | 0.6Comment: This is an | 0.1 - 1.5 mg/dL | [facility] | | | Total | appended report. These | | [facility] | | | | results have been | | MEDICAL | | | | appended to a previously | | CENTER - | | | | preliminary verified | | LABORATORY | | | | report. | | | | + + + + + + | Total | 6.5 | 6.0 - 7.8 g/dL | [facility] | | | Protein | | | [facility] | | | | | | MEDICAL | | | | | | CENTER - | | | | | | LABORATORY | | + + + + + + | AST | 27Comment: This is an | 10 - 42 U/L | [facility] | | | | appended report. These | | [facility] | | | | results have been | | MEDICAL | | | | appended to a previously | | CENTER - | | | | preliminary verified | | LABORATORY | | | | report. | | | | + + + + + + | ALT | 22Comment: This is an | 6 - 45 U/L | [facility] | | | | appended report. These | | [facility] | | | | results have been | | MEDICAL | | | | appended to a previously | | CENTER - | | | | preliminary verified | | LABORATORY | | | | report. | | | | + + + + + + | Alkaline | 80Comment: This is an | 40 - 110 U/L | [facility] | | | Phosphatase | appended report. These | | [facility] | | | | results have been | | MEDICAL | | | | appended to a previously | | CENTER - | | | | preliminary verified | | LABORATORY | | | | report. | | | | + + + + + + | Globulin | 2.8 | 2.1 - 3.8 g/dL | [facility] | | | | | | [facility] | | | | | | MEDICAL | | | | | | CENTER - | | | | | | LABORATORY | | + + + + + + | Albumin/Nancy | 1.3 | 0.8 - 2.0 | [facility] | | | bulin Ratio | | | [facility] | | | | | | MEDICAL | | | | | | CENTER - | | | | | | LABORATORY | | + + + + + + | BUN/Creatin | 17.6 | | [facility] | | | ine [...] + | [facility] | [address] | [place] | [phone] | | [facility] | | [address] | | | - LABORATORY | | | | + + + + + PSA, Diagnostic (08/31/2018 12:11 PM PST) + +-------+ + + + | Component | Value | Ref Range | Performed | Pathologist | | | | | At | Signature | + +-------+ + + + | PSA | 0.07 | <=4.00 ng/mL | [facility] | | | | | | [facility] | | [...] ST. | [address] | [place] | [phone] | | [facility] | | [address] | | | - LABORATORY | | | | + + + + + Magnesium (08/31/2018 12:11 PM PST) + +---------+ + + + | Component | Value | Ref Range | Performed | Pathologist | | | | | At | Signature | + +---------+ + + + | Magnesium | 1.7 (L) | 1.8 - 2.5 mg/dL | [facility] | | | | | | [facility] | | | | | | MEDICAL | | | | | | CENTER - | | | | | | LABORATORY | | + +---------+ + + + + + | Specimen | + + | Blood | + + + + + + + | Performing | Address | City/State/Zipcode | Phone Number | | Organization | | | | + + + + + | [facility] | [address] | [place] | [phone] | | [facility] | | [address] | | | - LABORATORY | | | | + + + + + Phosphorus (08/31/2018 12:11 PM PST) + +-------+ + + + | Component | Value | Ref Range | Performed | Pathologist | | | | | At | Signature | + +-------+ + + + | Phosphorus | 3.9 | 2.5 - 4.6 mg/dL | [facility] | | | | [...] + + + + + | [facility] | [address] | [place] | [phone] | | [facility] | | [address] | | | - LABORATORY | | | | + + + + + documented in this encounter Visit Diagnoses + + | Diagnosis | + + | Prostate cancer (HCC) - Primary Malignant neoplasm of prostate | + + | Bone metastasis (HCC) Secondary malignant neoplasm of bone and bone marrow | + + documented in this encounter"
--- OUTSIDE RECORDS SUMMARY | ~2020-06-06 | XMS | Encounter Summary ---
Demographics + + + | Address | [address] | | | [place] [place] [address] | + + + | Home Phone | | + + + | Preferred Language | Unknown | + + + | Marital Status | Single | + + + | Judaism Affiliation | CHR | + + + | Race | White | + + + | Ethnic Group | Not or | + + + Author + + + | Author | [facility] | + + + | Organization | [facility] | + + + | Address | Unknown | + + + | Phone | Unavailable | + + + Support + + +---------+ + | Name | Relationship | Address | Phone | + + +---------+ + | Servando Boyer | ECON | Unknown | | + + +---------+ + Care Team Providers + +------+ + | Care Head Buyer Tobacco Name | Role | Phone | + +------+ + | Aryan Grossman MD | PCP | | + +------+ + Encounter Details +--------+ + + + + | Date | Type | Department | Care Team | Description | +--------+ + + + + | 07/15/ | 

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
--- OUTSIDE RECORDS SUMMARY | ~2020-06-06 | XMS | Encounter Summary ---
Demographics + + + | Address | NEED ADDRESS | | | [place] [address] | + + + | Home Phone | | + + + | Preferred Language | Unknown | + + + | Marital Status | Single | + + + | Amish Affiliation | Unknown | + + + | Race | White | + + + | Ethnic Group | Not or | + + + Author + + + | Author | [facility] | | | and [place] | + + + | Organization | [facility] | | | [...] + | Hector Garcia | ECON | [place] [address] | | + + + + + Care Team Providers + +------+ + | Care Manager Strategic Sourcing Name | Role | Phone | + [...] | Specialty | Sleep | Diagnoses | Ian, | [facility] | | | Services | Medicine | NAHUN | Christian Gupta | [place] [address] [address] | | | Required | | (obstructive | [address] | [place] | | | | | sleep | [place] | [place], | | | | | apnea) | [facility] | [place] [address] | | | | | Procedures | [place], [place] | Phone: | | | | | [place] | [address] | [phone] | | | | | 6/>YRS SLEEP | Phone: | Fax: | | | | | W/CPAP 4/> | [phone] | [phone] | | | | | ADDL ALVARO | Fax: | | | | | | ATTND S/N | [phone] | | | | | | 08/09> TBS> | | | | | | | STILL PEND | | | | | | | INS | | | | | | | COVERAGE/EOC | | | | | | | CO TERMED | | | | | | | 04/25/16 | | | +--------+ + + + + + Reason for Visit +---------+ + | Reason | Comments | +---------+ + | Consult | | +---------+ + | Snoring | | +---------+ + Evaluate & Treat (Routine) +--------+ + + + + + | Status | Reason | Specialty | Diagnoses / | Referred By | Referred To | | | | | Procedures | Contact | Contact | +--------+ + + + + + | Closed | Specialty | Dermatology | Diagnoses | M[place], | Konrad, | | | Services | | Alopecia | Aryan Velásquez MD | Deya Irizarry MD | | | Required | | | [address] | [address] [place] | | | | | | [place] | [place] | | | | | | [place] | [address] | | | | | | [address] | Phone: | | | | | | Phone: | [phone] | | | | | | [phone] | Fax: | | | | | | Fax: | [phone] | | | | | | [phone] | | +--------+ + + + + + Encounter Details +--------+---------+ + + + | Date | Type | Department | Care Team | Description | +--------+---------+ + + + | 06/03/ | Office | [facility] | Christian Sosa | NAHUN (obstructive | | 2015 | Visit | SLEEP DISORDER [address] | [address] | sleep apnea) | | | | [address] [place] | [place] [address] [place] | (Primary Dx); | | | | [place] [address] | [place] [address] | Organic insomnia; | | | | [phone] | [phone] | Alcohol abuse; | | | | | | Essential | | | | | | hypertension, | | | | | | hypertension with | | | | | | unspecified goal | +--------+---------+ + + + Social History [...] + + + | Blood Pressure | 148/102 | 06/03/2016 7:49 AM | | | | | PDT | | + + + + + | Pulse | 73 | 06/03/2016 7:49 AM | | | | | PDT | | + + + + + | Temperature | - | - | | + + + + + | Respiratory Rate | 16 | 06/03/2016 7:49 AM | | | | | PDT | | + + + + + | Oxygen Saturation | 98% | 06/03/2016 7:49 AM | | | | | PDT | | + + + + + | Inhaled Oxygen | - | - | | | Concentration | | | | + + + + + | Weight | 90.8 kg (200 lb 1.6 | 06/03/2016 7:49 AM | | | | oz) | PDT | | + + + + + | Height | 175.3 cm (5' 9") | 06/03/2016 7:49 AM | | | | | PDT | | + + + + + | Body Mass Index | 29.55 | 06/03/2016 7:49 AM | | | | | PDT | | + + + + + documented in this encounter Patient Instructions Patient Instructions Christian Sosa Jr., MD - 06/03/2016 8:48 AM PDTFormatting of this n ote might be different from the original. What Are Snoring and Obstructive Sleep Apnea? If you ve ever had a stuffed-up nose, you know the feeling of trying to breathe through a very narrow passageway. This is what happens in your throat when you snore. While you sleep , structures in your throat partially block your air passage, making the passage narrow and hard to breathe through. If the entire passage becomes blocked and you can t breathe at al l, you have sleep apnea. Air moves freely through the nose, mouth and throat. Snoring If your throat structures are too large or the muscles relax too much during sleep, the air passage may be partially blocked. As air from the nose or mouth passes around this blockage , the throat structures vibrate, causing the familiar sound of snoring. At times, this sound can be so loud that snorers wake up others, or even themselves, during the night. Snoring g ets worse as more and more of the air passage is blocked. Air is blocked in the back of the mouth and throat. Obstructive sleep apnea If the structures completely block the throat, air can t flow to the lungs at all. This i s called apnea (meaning no breathing ). Since the lungs aren t getting fresh air, the brain tells the body to wake up just enough to tighten the muscles and unblock the air pass age. With a loud gasp, breathing begins again. This process may be repeated over and over ag ain throughout the night, making your sleep fragmentedwith a engineer system administrator stage of sleep. Even though you do not remember waking up many times during the night to a engineer system administrator sleep, you fee l tired the next day. The lack of sleep and fresh air can also strain your lungs, heart, and other organs, leading to problems such as high blood pressure, heart attack, or stroke. Air may not be able to move freely past a deviated septum or swollen turbinates. Problems in the nose and jaw Problems in the structure of the nose may obstruct breathing. A crooked (deviated) septum o r swollen turbinates can make snoring worse or lead to apnea. Also, a receding jaw may make the tongue sit too far back, so it s more likely to block the airway when you re asleep. [id number] [employer]. [address] [place] [address]. All righ ts reserved. This information is not intended as a substitute for professional medical care. Always follow your healthcare professional's instructions. What is a Sleep Study? Do you often have problems sleeping? Do you feel tired most days of the week? Talk to your healthcare provider or a sleep specialist. He or she may suggest that you have a sleep study . It can help diagnose a sleep disorder such as sleep apnea or narcolepsy. During the study, a special machine is used to monitor your sleep. Who needs a sleep study? If you have sleep problems that last longer than a few weeks, you may need a sleep study. T alk to your healthcare provider. Be prepared to answer questions about your health history. Try to keep a daily sleep diary for a week or 2. Write down the time you go to bed, the time you wake up, and anything that seems to affect your sleep. Then your healthcare provider ca n refer you to a sleep specialist and recommend a sleep study. Monitoring your sleep Your sleep can be monitored at a sleep clinic or at your home. In either case, your healthc are provider will discuss the results with you at a future visit: At a sleep clinic. Most sleep studies are done at a sleep clinic or a sleep lab. In many cases, you will need to stay overnight. You will sleep in a private room, much like a hotel or hospital room. A family member or a friend can come along, but cannot stay overnight. Mo st people don t have trouble sleeping during the study. In the morning you can go home. So metimes you may be asked to remain at the lab the next day for a daytime nap study. At home. At times, a sleep study can be done at home. A home sleep study provides most o f the same information as a study done at a clinic. A special computer is loaned to you by a sleep clinic or a medical supplier. You will be given instructions on how to use it. Or, so meone may come to your home to help. Before bedtime, the computer is turned on to monitor yo ur sleep all night. In the morning, you return the computer. [id number] [employer]. [address] [place] [address]. All righ ts reserved. This information is not intended as a substitute for professional medical care. Always follow your healthcare professional's instructions. Continuous Positive Air Pressure (CPAP) Continuous positive air pressure (CPAP)uses gentle air pressure to hold the airway open. CPAP is often the most effective treatment for sleep apnea and severe snoring. It works very well for many people. But keep in mind that it can take several adjustments before the setu p is right for you. How CPAP works The CPAPmachine is asmall portable pump beside the bed. The pumpsends air through a h ose, which is held over your noseand mouthby a mask.Mild air pressureis gently pushe d through your airway. The air pressure nudges sagging tissues aside. This widens the airway so you can breathe better. CPAP may be combined with other kinds of therapy for sleep apnea . A mask over the nose gently directs air into the throat to keep the airway open. Types of air pressure treatments There are different types of CPAP. Your doctor or CPAP manufacturing production technician will help you decide whic h type is best for you: Basic CPAPkeeps the pressure constant all night long. A bilevel device(BiPAP)providesmore pressure when you breathe in and less when you breathe out.A BiPAP machine also may be set to provide automatic breaths to maintain rodriguez thing if you stop breathing while sleeping. An autoCPAP deviceautomatically adjusts pressure throughout the night and in response to changes such as body position, sleep stage, and snoring. [id number] [employer]. [address] [place] [address], [place] [address]. All righ ts reserved. This information is not intended as a substitute for professional medical care. Always follow your healthcare professional's instructions. documented in this encounter Progress Notes Christian Sosa Jr., MD - 06/03/2016 8:13 AM PDTFormatting of this note might be differen t from the original. [facility] [place] [address] Ref: Aryan Grossman MD CC: Chief Complaint Patient presents with Consult Snoring History of the Present Illness:This is a 50 year old male who is referred for sleep medicin e consultation by Dr. Kathleen Grossman because of snoring and insomnia. Other significant medical issues include alcohol abuse, GERD, HBP, history of CVA, Depression/anxiety. The patient's r ecords ([facility] EMR) are reviewed. The patient is interviewed and examined. The patient was a NO SHOW for his first sleep medicine appointment on 03/03/2016. I've discussed that he must ca ll us if he can't make an appointment. He agrees. Bedtime is about 9-10pm and rise time is about 6am. He estimates a latency to sleep of 30-4 0 minutes. He takes zolpidem infrequently and hasn't taken one in a month or so. He has noct uria about 2-3 times every night and he usually gets back to sleep easily. He denies night s weats. He occasionally has nocturnal heartburn. He awakens frequently with a dry mouth and n kalin/sinus congestion but he denies morning headaches. He awakens frequently during the nigh t and has a very fragmented sleep (he tosses and turns all night long) but he isn't awake fo r hours at a time. He dreams in his sleep frequently. He denies hypnagogic hallucinations. He isn't a sleep wa lker. He denies dream enactment while asleep but he does frequently talk in his sleep. He de nies sleep paralysis. He rarely has nightmares. He denies restlessness in his legs at night. No one has ever told him that his legs/arms ki ck/twitch rhythmically at night after he falls asleep - but he does move a lot and tosses an d turns in his sleep. He doesn't have a current bedpartner. He snores very loudly at night. He awakens himself gasping for air and snorting. He can't s leep supine because of this. He typically sleeps prone. People have told him that he stops b reathing at night also. He doesn't know if alcohol makes this worse or not. He currently is drinking at least a 6 pack of alcohol every night. In the daytime he feels fatigued and tired. He naps frequently on weekends in the afternoon for an hour or so and this does make him feel more alert. He doesn't fall asleep driving bu t he does get drowsy driving. He denies cataplexy. He consumes energy drinks occasionally. Past Medical History: has a past medical history of Hypertension; GERD (gastroesophageal r eflux disease); Stroke ([facility]) (2012); Hyperlipemia; Alcoholism ([facility]); Elevated PSA; Nicotine addiction; Alopecia; Depression; Prostate cancer ([facility]) (11/24/2013); NAHUN (obstructive sleep apnea); and Organic insomnia. has past surgical history that includes lumbar discectomy (1992); orthopedic surgery (2007 ); and Prostatectomy (08/01/14). No Known Allergies Current Outpatient Prescriptions Medication Sig Dispense Refill losartan (COZAAR) 50 mg tablet take 1 tablet by mouth once daily 90 tablet 3 naproxen (NAPROSYN) 500 mg tablet take 1 tablet by mouth twice a day WITH BREAKFAST AND DINNER 60 tablet 5 No current facility-administered medications for this visit. Past Surgical History Procedure Laterality Date Lumbar discectomy 1992 Orthopedic surgery 2007 Right thumb Prostatectomy 08/01/14 Family Medical History: family history includes Cancer in his father and mother; Cancer (ag e of onset: 40) in his sister; High blood pressure in his brother, brother, and father; Mult iple Sclerosis in his father. There is no history of Prostate cancer. indicated that his mother is . He indicated that his father is . He indicat ed that only one of his two sisters is alive. He indicated that all of his three brothers ar e alive. He indicated that only one of his two sons is alive. 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 Social History Main Topics Smoking status: Heavy Tobacco Smoker -- 1.00 packs/day for 25 years Types: Cigarettes Smokeless tobacco: Never Used Alcohol Use: 0.0 oz/week 0 Standard drinks or equivalent per week Comment: At least a 6 pack of beer a day Drug Use: No Comment: Used to use methamphetamine Sexual Activity: No Other Topics Concern None Social History Narrative Mom:d Father:d Born: [place] How long in [place]: [place] [facility] [place] [facility] [place] Kids:1 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 Eyes:Denies sudden loss of vision, diplopia, blurred vision. ENT: Denies vertigo, nasal or sinus congestion, bleeding gums. Has poor dental repair wit h no upper teeth. Has mild loss of hearing and tinnitus Card:Denies exertional substernal chest heaviness, leg pain. Denies palpitations, orthopn ea, ankle edema, presyncope. Resp: Denies cough, wheezing, asthma, hemoptysis GI: Denies nausea, vomiting, abdominal pain, diarrhea, constipation, hematochezia. : Denies dysuria, pyuria, hematuria, frequency, incontinence MS: Diffuse arthralgias. Neuro: Denies seizures, loss of consciousness, syncope. Possible many concussions. No DT' s Psych: Denies: depression, anxiety, panic, past history physical or sexual abuse, severe traumatic experiences Endocrine: Denies heat or cold intolerance Heme: Denies easy bruising or prolonged bleeding. No history of transfusions Allergic/Immunologic: Mild possible seasonal allergies PE: BP 148/102 mmHg | Pulse 73 | Resp 16 | Ht 1.753 m (5' 9") | Wt 90.765 kg (200 lb 1.6 oz ) | BMI 29.54 kg/m2 | SpO2 98% Gen: not in acute distress HEENT:Head: Normocephalic, no lesions, without obvious abnormality. Eye: Normal external eye, conjunctiva, lids cornea, MYLA. Nose: Normal external nose, mucus membranes and septum. Pharynx: Dental Hygiene poor with no upper teeth. Normal buccal mucosa. Mallampati 3. Neck / Thyroid: Supple, no masses, nodes, nodules or enlargement. Pulm: lungs clear to auscultation Card: regular rate and rhythm, S1, S2 normal, no murmur, click, rub or gallop GI: soft and normal bowel sounds : Not examined Rectal: Not Examined Ext: peripheral pulses normal, no pedal edema, no clubbing or cyanosis Skin:no rashes. Deep suntan Neuro:Grossly normal Psych:age appropriate, bearded and casually dressedoriented to time, place and person, moo d and affect are within normal limits, pt is a good historian; no memory problems were noted Heme: No cervical LN Questionnaires Review: The score of 6 on the Hornell Sleepiness scale suggests minimal exce ssive daytime sleepiness. The score of 15 on the Insomnia Severity Scale suggests that the p atient has significant dissatisfaction with the quality of sleep. The score of 8 on the Lewis Depression Inventory is consistent with minimal depression. The score of 1 on the Lewis Anxi ety Inventory suggests minimal recognized anxiety. The SF36v2 suggests mild self assessed im pairment in subscales Vitality, Role Emotional; minimal if any significant self assessed imp airment on subscales Role Physical, Body Pain; and no self assessed impairment in subscales General Health, Social Function, and Mental Health. He scores just under the mean on the Phy sical Component Scale and just above the mean on the Mental Component Scale. Assessment: NAHUN: I suspect that the patient has NAHUN and that this is likely responsible for the majority of his sleep fragmentation and for his nocturia, nocturnal GERD, morning nasal congestion, and daytime fatigue. I have discussed in detail the pathophysiology of Obstruct jillian Sleep Apnea with the patient. I've discussed that during NREM sleep the skeletal muscles relax and in REM sleep the skeletal muscles are paralyzed. The muscles that support the margarette k of the throat (the tongue in particular) also relax during NREM sleep and are paralyzed in REM sleep and when this occurs, the back of the throat collapses some. In some patients wit h a smaller back of the throat, this can result in obstruction to the flow of air. This is f undamentally what occurs in NAHUN. This can cause repetitive obstruction to the flow of air al l night long cause a person with NAHUN to awaken repeatedly at night to "open" the back of the throat. If airflow is significantly restricted, blood oxygen levels can fall. The combinati on of the repetitive awakenings at night and low oxygen levels lead to numerous other physio logic abnormalities which can result in nocturia, nocturnal heartburn, night sweats, morning dry mouth, morning headache, and daytime fatigue/sleepiness. Additionally, NAHUN can cause hy pertension and it dramatically increases the risk of heart disease, heart attack, and stroke . It may play a causative role in obesity and AODM. Untreated NAHUN also dramatically increase s the risk of fall asleep car accidents. Treatment can help with all of these issues. He isn 't a candidate for oral appliance therapy (no upper teeth) but I have discussed CPAP with yudy otero. Organic Insomnia: I suspect NAHUN is responsible for his sleep fragmentation. I also suspec t alcohol plays a role too and I've encouraged him to stop drinking. I have discussed the [facility] principles of sleep hygiene with him. Alcohol Abuse: He is drinking at least a 6 pack of beer every night but he claims he is g oing to stop. This worsens sleep and can contribute significantly to NAHUN as well as sleep fr agmentation. I've suggested he consider going to AA meetings. Counseling could be helpful. Nataliia danielleever in view of his alcohol abuse, I would not recommend hypnotic agents be used. Smoking: I've also discussed how smoking can also increase the severity of NAHUN and he is encouraged to begin to think about possibly quitting smoking. HBP: Treating NAHUN can improve BP. Stopping alcohol consumption can also help with BP. Plan: PSG utilizing a split-night technique in the near future with f/u thereafter. Patient Active Problem List Diagnosis HTN (hypertension) Alopecia Stress reaction Nicotine addiction Depression Elevated PSA Preventative health care Prostate cancer Depression with anxiety Angioedema Dental abscess Insomnia due to medical condition Alcoholism Cervical stenosis of spine NAHUN (obstructive sleep apnea) Organic insomnia Today, 60 minutes was spent face to face with the patient; the majority of time was spent c ounseling regarding sleep issues. Jos, Christian Gupta Jr., MD - 06/03/2016 7:59 AM PDTFormatting of this note might be different from the origin al. 06/03/16 0700 Lewis Depression Inventory-II Depression Score 8 - Minimal depression Insomnia Severity Index Insomnia Severity Index 15 Hornell Sleepiness Scale Sitting and reading 1 Watching TV 1 Sitting, inactive in a public place (e.g. a theatre or a meeting) 0 As a passenger in a car for an hour without a break 1 Lying down to rest in the afternoon when circumstances permit 1 Sitting and talking to someone 0 Sitting quietly after a lunch without alcohol 1 In a car, while stopped for a few minutes in traffic 1 Total score 6 SF-36v2 Score PF 49.89 RP 48.17 BP 46.68 GH 55.56 VT 43.69 SF 57.34 RE 45.72 MH 58.72 PCS 48.3 MCS 53.35 documented in th is encounter Plan of Treatment + + +--------+ + + | Name | Type | Priori | Associated Diagnoses | Order Schedule | | | | ty | | | + + +--------+ + + | Ambulatory Referral | Outpatient | Routin | NAHUN (obstructive | Ordered: 06/03/2016 | | to Sleep Studies | Referral | e | sleep apnea) | | + + +--------+ + + documented as of this encounter Visit Diagnoses + + | Diagnosis | + + | NAHUN (obstructive sleep apnea) - Primary Obstructive sleep apnea (adult) (pediatric) | + + | Organic insomnia Organic insomnia, unspecified | + + | Alcohol abuse Alcohol abuse, unspecified | + + | Essential hypertension, hypertension with unspecified goal | + + documented in this encounter
--- OUTSIDE RECORDS SUMMARY | ~2020-06-06 | XMS | Encounter Summary ---
Demographics + + + | Address | NEED ADDRESS | | | [place] [address] | + + + | Home Phone [...] Author + + + | Author | [facility] | | | and [place] | + + + | Organization | [facility] | | | [...] + | Hector Garcia | ECON | [place] [address] | | + + + + + Care Team Providers + +------+ + | Care Global Sales Director Name | Role | Phone | + +------+ + | Loi Frausto PA-C | PCP | | + +------+ + Reason for Visit Service/Procedure (Routine) +--------+--------+ + + + + | Status | Reason | Specialty | Diagnoses / | Referred By | Referred To | | | | | Procedures | Contact | Contact | +--------+--------+ + + + + | Closed | | Infusion | Diagnoses | Natalee, | [facility] | | | | Therapy | Malignant | Maged Powell MD | Infusion [address] | | | | | neoplasm of | [address] | | | | | prostate | [address] | [place], | | | | | (HCC) | [address]REET | [place] [address] | | | | | Secondary | [place], | Phone: | | | | | malignant | [place] | [phone] | | | | | neoplasm of | [address] | Fax: | | | | | bone (HCC) | Phone: | [phone] | | | | | Procedures | [phone] | | | | | | LA DENOSUMAB | Fax: | | | | | | INJECTION, | [phone] | | | | | | 1 MG | | | +--------+--------+ + + + + Encounter Details +--------+ + + + + | Date | Type | Department | Care Team | Description | +--------+ + + + + | 07/03/ | Hospital | [facility] | NataleeMaged, | Bone metastases | | 2018 | Encounter | [facility] | MD [address] | (HCC); Prostate | | | | INFUSION [address] [place], | cancer (HCC) | | | | [place], | [place] [address] | | | | | [place] [address] | [phone] | | | | | [phone] | | | +--------+ + + + [...] documented as of this encounter Miscellaneous Notes Addendum Note - Veronique Leonard RN - 07/03/2018 8:52 AM PDTEncounter addended by: Marva Leonard RN on: 07/03/2018 8:52
Actions taken: Sign clinical noteElectronical ly signed by Veronique Leonard RN at 07/03/2018 8:52 AM PDTTreatment Plan - Jaun Leonard RN - 07/03/2018 8:40 AM PDTViewed chart for weight, vital signs and lab results. A lso viewed chart for completion of medication and allergy review prior to treatment. Janet Leonard RNDATE/TIME: 07/03/2018 8:52 documented in thi s encounter Plan of Treatment Not on filedocumented as of this encounter Visit Diagnoses + + | Diagnosis | + + | Bone metastases (HCC) Secondary malignant neoplasm of bone and bone marrow | + + | Prostate cancer (HCC) Malignant neoplasm of prostate | + + documented in this encounter Administered Medications + +--------+ +--------+------+ + | Medication Order | MAR | Action | Dose | Rate | Site | | | Action | Date | | | | + +--------+ +--------+------+ + | denosumab (XGEVA) 120 mg/1.7 mL | Given | 07/03/20 | 120 mg | | Arm-Righ | | injection 120 mg 120 mg, | | 18 8:45 | | | t Upper | | Subcutaneous, ONCE, 07/03/18 | | AM PDT | | | | | at 0900, For 1 dose, Keep in | | | | | | | refrigerator. Allow to attain | | | | | | | room temperature prior to use., | | | | | | + +--------+ +--------+------+ + +---+---+ | | | +---+---+ documented in this encounter"
--- OUTSIDE RECORDS SUMMARY | ~2020-06-06 | XMS | Encounter Summary ---
Demographics + + + | Address | [address] | | | [place] [address] | + + + | Home Phone | | + + + | Preferred Language | Unknown | + + + | Marital Status | Single | + + + | Latter Day Affiliation | CHR | + + + | Race | White | + + + | Ethnic Group | Not or | + + + Author + + + | Author | [facility] | + + + | Organization | [facility] | + + + | Address | Unknown | + + + | Phone | Unavailable | + + + Support + + +---------+ + | Name | Relationship | Address | Phone | + + +---------+ + | Servando Boyer | ECON | Unknown | | + + +---------+ + Care Team Providers + +------+ + | Care Biological Engineer Name | Role | Phone | + [...] [address] | | | | | [place] | Rd | [place], [place] | | | | | [address] | [place], [place] | [address] | | | | | [place] | [address] | Phone: | | | | | SUSPNSION | Phone: | [phone] | | | | | [address] [place] | [phone] | Fax: | | | | | THR/PRPH/DX | Fax: | [phone] | | | | | INJ,SC/IM | [phone] | | | | | | Lupron | | | | | | | injections | | | +--------+--------+ + + + + Encounter Details +--------+---------+ + + + | Date | Type | Department | Care Team | Description | +--------+---------+ + + + | 03/28/ | Office | [facility] | Rn, [address] | Prostate cancer | | 2017 | Visit | [address] | [place] | ([facility]) (Primary Dx) | | | | [place] [facility] | Road | | | | | and Healing, | [address] | | | | | Building | | | | | | Floor | | | | | | [address] | | | | | | [phone] | | | +--------+---------+ + + + [...] + + documented as of this encounter Patient Instructions Patient Instructions Papi Snyder - 03/28/2017 11:40 AM PDT Clinic visit information: Follow up: No follow-up information. Please stop at our check-out desk to schedule a follow up appointment. You should be seen every 3 months for 9 months For your androgen deprivation therapy (ADT) injection. Please have a PSA collected a few days prior to the injection, or you can have the PSA bernabe ected 1 hour prior to your appointment for the injection. The PSA result is available 1 yasmeen r after it is collected. Next clinic visit date: (Patient to complete) Next clinic visit time: To help maintain and promote strong bones while on ADT (androgen deprivation therapy): Purchase Calcium Citrate and Vitamin D. Example: Caltrate 600 mg of Calcium with 800 IU of Vitamin D3. Take one tablet 3 times a d ay. or Take approximately 1500mg calcium (500mg three times a day) and Vitamin D 2000 IU's once a day. Dept. of Urology contact information: [phone] or after hours [phone]. (leuprolide acetate for depot suspension) FOR TREATMENT OF PROSTATE CANCER Leuprolide is prescribed for the palliative treatment of advanced prostate cancer. Leuprolide works by lowering the levels of testosterone produced by the testicles. This decreases the amount of testosterone in the body, which may help relieve symptoms like pain or difficulty urinating. During your course of therapy, you should visit your doctor s office to receive injection s of Leuprolide according to the following recommendations: You will want to start taking a skilled nursing calcium with vitamin D supplement since starting Leuprolide. Leuprolide works continuously and consistently over the time between injections. During the physician s office visit, your doctor is able to monitor your progress and dis cuss any questions and concerns you might have about your condition. The most common side effects associated with Leuprolide are hot flashes, pain, and injectio n site reactions. Some men may also experience a temporary increase in their urinary symptom s or pain during the first weeks of treatment. The increase in testosterone that occurs duri ng the first weeks of therapy can cause an increase in symptoms. Therefore, patients with m etastatic cancer to the spine or urinary tract need close medical attention during the first weeks of therapy. Like other treatment options, Leuprolide may cause impotence. Notify your doctor if you develop new or worsened symptoms after beginning Leuprolide treatment. You should discuss with your physician any questions you have about the diagnosis and treat ment of prostate cancer. Other Hot flashes Swelling of your hands or feet General pain Headache Trouble sleeping Loss of appetite Constipation, nausea Sweating Shrinking testicles Vomiting Impotence Decreased sex drive Hair loss Change in taste or vision Irritation or rash at the spot where the Shot was given Hives Serious General rash Itching Trouble urinating Weakness Numbness or tingling in your legs Fever Depression Worsening of your symptoms Severe Itching Rash Trouble breathing Tightness in the chest Swelling of the lips Swelling of the tongue Swelling of the throat documented in this encounter Progress Notes Papi Snyder - 03/28/2017 11:40 AM PDTFormatting of this note might be different from th e original. Subjective Reason for call or visit: Lupron injection. Objective Data collected: Mani Garcia comes in today for his Lupron injection for his prostate cancer. Prior to beginning the procedure, patient identity was verified, as well as the procedure t o be performed and the site. All equipment required was ready and available. The patient wa s positioned appropriately. Verbal permission to proceed given by Simran MAN. She is present and available in clinic during the entire visit. Procedure: Lupron 22.5 mg was given intramuscularly into the right upper outer quadrant of his gluteal muscle. Mr. Garcia's final injection will be approx 06/2017. Last PSAs: Lab Results Component Value Date PSA 3.03 03/28/2017 PSA 0.75 10/01/2014 PSA 22.07 07/09/2014 Mr. Garcia verbalized agreement and understanding of these instructions and use of Lupron he had no questions upon discharge. Previous contact date: 12/31/16. New or ongoing problem: New. Assessment Nursing [...] concerns related to his Lupron injection today.. Reinforced the importance of taking vitamin D and calcium (as outlined in today's AVS) Nursing Evaluation: Yes - Verbalizes or demonstrates understanding of education provided. Yes - Patient was active participant/motivated. Yes - Patient asks clarifying questions about plan. Notes to Healthcare Team: Notified: PA/BETTING CLERK via verbal. documented in this encoun ter Plan of Treatment Not on filedocumented as of this encounter Procedures + +--------+ + + + | Procedure Name | Priori | Date/Time | Associated Diagnosis | Comments | | | ty | | | | + +--------+ + + + | [place] THR/PRPH/DX | Routin | 03/28/2017 | Prostate cancer | | | INJ,SC/IM | e | | (HCC) | | + +--------+ + + + | STAFF TO GIVE: | Routin | 03/28/2017 | Prostate cancer | | | LEUPROLIDE ACETATE | e | | (HCC) | | | (3 MNTH) 22.5 MG IM | | | | | | KIT ($ PER 3.75 MG) | | | | | + +--------+ [...] | | | + +--------+ +---------+------+---------+ | Leuprolide Acetate Injection | Given | 03/28/2017 | 22.5 mg | | Right | | Intramuscular | | 12:56 | | | Buttock | | | | PDT | | | | + +--------+ +---------+------+---------+ +---+---+ | | | +---+---+ documented in this encounter"
--- OUTSIDE RECORDS SUMMARY | ~2020-06-06 | XMS | Encounter Summary ---
Demographics + + + | Address | NEED ADDRESS | | | [place] [address] | + + + | Home Phone | | + + + | Preferred Language | Unknown | + + + | Marital Status | Single | + + + | Congregational Affiliation | Unknown | + + + | Race | White | + + + | Ethnic Group | Not or | + + + Author + + + | Author | [facility] | | | and [place] | + + + | Organization | [facility] | | | and [...] Hector Garcia | ECON | [place] [address] | | + + + + + Care Team Providers + +------+ + | Care Sexer Name | Role | Phone | + +------+ + | Loi Frausto PA-C | PCP | | + +------+ + Reason for Visit + + + | Reason | Comments | + + + | Follow-up | suture removal-ricky | + + + Encounter Details +--------+---------+ + + + | Date | Type | Department | Care Team | Description | +--------+---------+ + + + | 10/06/ | Office | [facility] | Antony Grider MD | Tongue lesion | | 2018 | Visit | OTOLARYNGOLOGY [address] | [address] [place] | (Primary Dx) | | | | [address] [place] | [address] | | | | | [place] | [address] | | | | | [address] | | | | | | [phone] | | | +--------+---------+ + + + [...] + + + + | Pulse | 98 | 10/06/2017 8:09 AM | | | | | PST | | + + + + + | Temperature | - | - | | + + + + + | Respiratory Rate | 16 | 10/06/2017 8:09 AM | | | | | PST | | + + + + + | Oxygen Saturation | 94% | 10/06/2017 8:09 AM | | | | | PST | | + + + + + | Inhaled Oxygen | - | - | | | Concentration | | | | + + + + + | Weight | 83 kg (183 lb) | 10/06/2017 8:09 AM | | | | | PST | | + + + + + | Height | 175.3 cm (5' 9") | 10/06/2017 8:09 AM | | | | | PST | | + + + + + | Body Mass Index | 27.02 | 10/06/2017 8:09 AM | | | | | PST | | + + + + + documented in this encounter Progress Notes Antony Grider MD - 10/06/2017 8:15 AM PSTPatient is postop removal of a leukoplakia under neath the tongue. He noted that within 24 hours the sutures had unraveled and come out. He had no problems with any significant bleeding and the soreness has cleared. The examinatio n shows that the wound is healing very nicely and should re-epithelialize typically within a nother 2 weeks. He also desires to have his hearing evaluated will be scheduled to have thi s completed. He has the history of probable obstructive sleep apnea and desires to follow u p with the sleep medicine lab to have further evaluation. He's encouraged to go to the lab. To try to continue with the process he started previously. He be re-seen after he's had t he audiogram completed. d ocumented in this encounter Plan of Treatment Not on filedocumented as of this encounter Visit Diagnoses + + | Diagnosis | + + | Tongue lesion - Primary Other specified conditions of the tongue | + + documented in this encounter
--- OUTSIDE RECORDS SUMMARY | ~2020-06-06 | XMS | Encounter Summary ---
Demographics + + + | Address | NEED ADDRESS | | | [place] [address] | + + + | Home Phone | | + + + | Preferred Language | Unknown | + + + | Marital Status | Single | + + + | [employer] Affiliation | Unknown | + + + [...] Hector Garcia | ECON | [place] [address] | | + + + + + Care Team Providers + +------+ + | Care Car Ferry Master Name | Role | Phone | + +------+ + | Loi Frausto PA-C | PCP | | + +------+ + Reason for Visit + + + | Reason | Comments | + + + | Prostate Cancer | | + + + Evaluate & Treat (Routine) +--------+--------+ + + + + | Status | Reason | Specialty | Diagnoses / | Referred By | Referred To | | | | | Procedures | Contact | Contact | +--------+--------+ + + + + | Closed | | Urology | Diagnoses | Lisbet, | [facility] | | | | | Prostate | Loi, | Urology [address] | | | | | cancer (HCC) | [address] | | | | | | Edilberto Alvarez | [place], | | | | | | [facility] | [place] [address] | | | | | | [place], [place] | Phone: | | | | | | [address] | [phone] | | | | | | Phone: | Fax: | | | | | | [phone] | [phone] | | | | | | Fax: | | | | | | | [phone] | | +--------+--------+ + + + + Encounter Details +--------+---------+ + + + | Date | Type | Department | Care Team | Description | +--------+---------+ + + + | 02/22/ | Office | [facility] | Zeeshan Hawkins, | Prostate cancer | | 2018 | Visit | [address] | MD [address] | ([facility]) (Primary Dx) | | | | [place] | [place] | | | | | [address] | [address] | | | | | [phone] | | | +--------+---------+ + + + [...] + + + | Blood Pressure | 140/100 | 02/22/2018 9:19 AM | | | | | PDT | | + + + + + | Pulse | 96 | 02/22/2018 9:19 AM | | | | | PDT | | + + + + + | Temperature | - | - | | + + + + + | Respiratory Rate | 16 | 02/22/2018 9:19 AM | | | | | PDT | | + + + + + | Oxygen Saturation | - | - | | + + + + + | Inhaled Oxygen | - | - | | | Concentration | | | | + + + + + | Weight | 87.3 kg (192 lb 7.4 | 02/22/2018 9:19 AM | | | | oz) | PDT | | + + + + + | Height | 175.3 cm (5' 9") | 02/22/2018 9:19 AM | | | | | PDT | | + + + + + | Body Mass Index | 28.42 | 02/22/2018 9:19 AM | | | | | PDT | | + + + + + documented in this encounter Patient Instructions Patient Instructions Zeeshan Hawkins MD - 02/22/2018 9:30 AM PDT Leuprolide depot injection Brand Names: Eligard, Lupron Depot, Lupron Depot-Ped What is this medicine? LEUPROLIDE (loo PROE lide) is a man-made protein that acts like a natural hormone in the dora dy. It decreases testosterone in men and decreases estrogen in women. In men, this medicine is used to treat advanced prostate cancer. In women, some forms of this medicine may be used to treat endometriosis, uterine fibroids, or other female hormone-related problems. How should I use this medicine? This medicine is for injection into a muscle or for injection under the skin. It is given b y a health field care coordinator in a hospital or clinic setting. The specific product will dete rmine how it will be given to you. Make sure you understand which product you receive and ho w often you will receive it. Talk to your falsework builder regarding the use of this medicine in children. Special care may be needed. What side effects may I notice from receiving this medicine? Side effects that you should report to your doctor or health field care coordinator as soon as p ossible: allergic reactions like skin rash, itching or hives, swelling of the face, lips, or tong ue breathing problems chest pain depression or memory disorders pain in your legs or groin pain at site where injected or implanted severe headache swelling of the feet and legs visual changes vomiting Side effects that usually do not require medical attention (report to your doctor or health field care coordinator if they continue or are bothersome): breast swelling or tenderness decrease in sex drive or performance diarrhea hot flashes loss of appetite muscle, joint, or bone pains nausea redness or irritation at site where injected or implanted skin problems or acne What may interact with this medicine? Do not take this medicine with any of the following medications: chasteberry This medicine may also interact with the following medications: herbal or dietary supplements, like black cohosh or DHEA female hormones, like estrogens or progestins and control pills, patches, rings, o r injections male hormones, like testosterone What if I miss a dose? It is important not to miss a dose. Call your doctor or health field care coordinator if you are unable to keep an appointment. Depot injections: Depot injections are given either once-monthly, every 12 weeks, every 16 weeks, or every 24 weeks depending on the product you are prescribed. The product you are pr escribed will be based on if you are male or female, and your condition. Make sure you under stand your product and dosing. Where should I keep my medicine? This drug is given in a hospital or clinic and will not be stored at home. What should I tell my health care provider before I take this medicine? They need to know if you have any of these conditions: diabetes heart disease or previous heart attack high blood pressure high cholesterol mental illness osteoporosis pain or difficulty passing urine seizures spinal cord metastasis stroke suicidal thoughts, plans, or attempt; a previous suicide attempt by you or a family memb er tobacco smoker unusual vaginal bleeding (women) an unusual or allergic reaction to leuprolide, benzyl alcohol, other medicines, foods, d yes, or preservatives or trying to get breast-feeding What should I watch for while using this medicine? Visit your doctor or health field care coordinator for regular checks on your progress. During t he first weeks of treatment, your symptoms may get worse, but then will improve as you frederick nue your treatment. You may get hot flashes, increased bone pain, increased difficulty passi ng urine, or an aggravation of nerve symptoms. Discuss these effects with your doctor or [facility] field care coordinator, some of them may improve with continued use of this medicine. Female patients may experience a menstrual cycle or spotting during the first months of the rapy with this medicine. If this continues, contact your doctor or health field care coordinator. NOTE:This sheet is a summary. It may not cover all possible information. If you have questi ons about this medicine, talk to your doctor, pharmacist, or health care provider. Copyright 2017 [employer] documented in this encounter Progress Notes Ileana Castillo RN - 02/22/2018 9:30 AM PDT Administrations This Visit leuprolide (LUPRON DEPOT-3 MONTH) injection 22.5 mg Admin Date 02/22/2018 Action Given Dose 22.5 mg Route Intramuscular Administered By Ileana Castillo RN Zeeshan Vallejo M D - 02/22/2018 9:30 AM PDT Mani is a 52 y.o. male patient of Loi Frausto PA-C being seen today for a follow up of prostate cancer. (redictation from memory --- [employer] crashed during documentation of this visit, causing melody a loss) Mani has high risk stage stage pT3b, N0, Mx prostate cancer. PSA 11/30/2013 was 75.46. Hi s prostate was firm and indurated. A prostate biopsy 02/13/2014 demonstrated a gland volume 47 cc and Elroy score 4+3 = 7/10 in all biopsies from the prostate gland, except for Gleas on score 3+4 = 7/10 at the right apex. Tumor was present in all cores, in 90-95% of each co re. . Mani subsequently moved to [place] shortly after his diagnosis of prostate cancer. He sa w a urologist Dr. Brian Hodgson, in [place], [place], who apparently recommended radiation therapy. He ultimately moved back to [place], and then underwent an open retropubic radical prostatectomy with bilateral pelvic lymph node dissection by Dr. Columba Kohli at [facility] on 08/01/2014. Pathology revealed Elroy score 4+3 = 7 adenocarcinoma with extra prostatic ext ension, seminal vesicle invasion, and unifocal positive surgical margin anteriorly. His PSA adarsh did not reach 0. His PSA adarsh on 10/01/2014 was 0.75. PSA 12/19/2014 was 0.86 , and PSA 04/02/2015 was 1.74. Due to adverse pathology, and Dr. Kohli had outlined a two-year course of androgen depriva tion therapy. After his first postoperative PSA was 0.75 on 10/11/2014, he was lost to follow-up and did n ot return to [facility] until prompted by his PCP who found his PSA to be 11.54 on 11/16/2016. PSA doubling time was calculated to be 7 months. Metastatic workup with bone scan and CT scan of chest abdomen and pelvis 12/17/2016 reportedly showed no evidence of metastatic disease. He last received Lupron 22.5 mg on approximately 10/24/2017. He states it is inconvenient for him to travel to [place] for treatment of his prostate ca ncer, so he returns to my office requesting Lupron. He denies any difficulties with voiding. He denies any dysuria or hematuria. He denies an y urinary tract infections. He has nocturia 1-2. He has urinary frequency every 2 hours. He has had irritative voiding symptoms, but these have improved, and he is no longer takin g oxybutynin. He states that he still has urinary leakage but his bladder control is "not t oo bad." He does not wear a pad. He denies any changes in his bowel habits. He denies any hematochezia or melena or constip ation or diarrhea. He has chronic back pain with right sciatica symptoms. He states he has numbness in his ri ght leg, unchanged. He reports that he is seen ice cream man Dr. Grider for this. He has joint pain and hot flashes and erectile dysfunction. He notes chills, low energy, d ely spells, numbness and tingling, excessive thirst, feels tired and sluggish, high blood p ressure, joint pain, back pain, bony pain, depression without suicidal ideation, otherwise, 10 point review of systems is negative. Unfortunately he continues to smoke. I spent in excess of 45 minutes with Mani today, over 50% of this [facility] and his advanced disease and treatment options including hormone suppression therapy. Past Medical History He has a past medical history of Alcoholism (HCC); Alopecia; Androgen deprivation therapy; Anxiety and depression; Essential hypertension, benign; GERD (gastroesophageal reflux diseas e); Hyperlipemia; Mixed, or nondependent drug abuse; Nicotine addiction; Organic insomnia; O SA (obstructive sleep apnea); Osteoarthritis; Periodic limb movements of sleep; Polyp, sigmo id colon; Prostate cancer (HCC) (11/24/2013); REM sleep behavior disorder; Stroke (HCC) (201 3); TIA (transient ischemic attack); Tobacco use; and Tongue ulcer. Past Surgical History He has a past surgical history that includes lumbar discectomy (1992); orthopedic surgery ( Right, 2007); Prostatectomy (08/01/14); and Colonoscopy (N/A, 06/10/2017). Family History: His family history includes Alcohol abuse in an other family member; Arthritis in an other family member; Breast cancer in his mother and sister; Cancer in his father; Cancer (age of onset: 40) in his sister; Cervical cancer in his mother; High blood pressure in his brother, brother, and father; Multiple sclerosis in his father; No Known Problems in his brother, ma ternal grandfather, maternal grandmother, paternal grandfather, paternal grandmother, sister , son, and son. Social History: He reports that he has been smoking Cigarettes. He has a 10.50 pack-year smoking history. He has never used smokeless tobacco. He reports that he uses drugs, including Marijuana, abo ut 5 times per week. He reports that he does not drink alcohol. No Known Allergies Medications: Outpatient Encounter Prescriptions as of 02/22/2018 Medication Sig Dispense Refill amitriptyline (ELAVIL) 10 mg tablet as needed cyclobenzaprine (FLEXERIL) 10 mg tablet [...] 1 capsule by mouth daily prn 0 oxybutynin (DITROPAN-XL) 10 MG 24 hr tablet Take 1 tablet by mouth as needed. pravastatin (PRAVACHOL) 40 MG tablet take 1 tablet by mouth every evening 0 traZODone (DESYREL) 50 mg tablet Take 50-100 mg by mouth nightly. No facility-administered encounter medications on file as of 02/22/2018. REVIEW OF SYSTEMS: [] All Negative Constitutional Symptoms: []Fever [x]Chills []Headache []Change in appetite [] Change in weight [x] Change in ener gy []Other: Neurological: []Tremors [x]Dizzy Spells [x]Numbness/Tingling []Seizures []Other: Endocrine: []Excessive thirst [x]Too hot: After treatment [] Too cold [x]Tired/Sluggish Gastrointestinal: []Abdominal pain []Nausea/vomiting []Indigestion/heartburn []Change in stool size [] Chauhan e in stool shape [] Change in stool color []Pain with swallowing []Other: Cardiovascular: []Chest Pain []Rapid heart rate [x]High blood pressure []Other: Integumentary: []Skin rash []Boils []Persistent itch []Other: Musculoskeletal: []Neck Pain [x]Joint swelling/pain [x]Back pain [x]Bone pain []Other: Respiratory: []Wheezing []Frequent cough []Shortness of breath []Other: Hematologic/Lymphatic: []Swollen glands []Blood clotting problems []Prior blood transfusions []Other: Psychologic: Are you generally satisfied with your life? no Do you feel severely depressed? yes Have you considered suicide? no Other: Habits: Do you smoke? yes [x] Yes [] No Patient advised to follow up with PCP regarding positives on review of s ystems. AUA BPH SYMPTOM SCORE Not at all Less than 1 times in 5 Less than half the time About half the time More than half the time Almost always INCOMPLETE EMPTYING Over the past month, how often have you had the sensation of not empty ing your bladder completely after you finished urinating? [x] 0 [] 1 [] 2 [] 3 [] 4 [] 5 FREQUENCY Over the past month, how often have you had to urinate again less than 2 hours a fter you finished urinating? [] 0 [] 1 [] 2 [] 3 [] 4 [x] 5 INTERMITTENCY Over the past month, how often have you found you stopped and started again several times when you urinated? [] 0 [] 1 [] 2 [x] 3 [] 4 [] 5 URGE TO URINATE Over the past month, how often have you found it difficult to postpone uri nation? [] 0 [] 1 [] 2 [] 3 [] 4 [x] 5 WEAK STREAM Over the past month, how often have you had a weak urinary stream? [] 0 [] 1 [] 2 [x] 3 [] 4 [] 5 STRAINING Over the past month, how often have you had to push or strain to begin urination ? [] 0 [] 1 [] 2 [x] 3 [] 4 [] 5 None 1 time 2 times 3 times 4 times 5 or more times URINATING AT NIGHT Over the past month, how many times did you most typically get up to ur inated from the time you went to bed at night until the time you got up in the morning? [] 0 [] 1 [x] 2 [] 3 [] 4 [] 5 Symptom Score: Mild 1-7, Moderate 8-19, Severe 20-35 TOTAL: 21 BOTHER SCORE DUE TO URINARY SYMPTOMS Delighted Pleased Mostly Satisfied Mixed Mostly dissatisfied Unhappy Terrible BOTHERSOMENESS OF URINARY SYMPTOMS How would you feel if you had to live with your urinary condition the way it is now, no better, no worse, for the rest of your life? [] 0 [] 1 [] 2 [x] 3 [] 4 [] 5 [] 6 PHYSICAL EXAM Vitals: BP (!) 140/100 | Pulse 96 | Resp 16 | Ht 1.753 m (5' 9") | Wt 87.3 kg (192 lb 7 .4 oz) | BMI 28.42 kg/m General: Awake, alert, in no acute distress. Speech is fluent. Appears to be stated age. Neck: Supple; no lymphadenopathy. No thyroid enlargement. Lungs: Normal respiratory effort, no wheezing, no stridor, no tachypnea. Chest: No rib or bony tenderness. Back: No CVA tenderness. No tenderness to fist percussion of the spine. Abdomen: Soft, nontender, no hepatosplenomegaly. No masses. No guarding; benign. Bladder nondistended. Incision looks well healed. Extremities: Non-edematous. Hips and long bones nontender to fist percussion. Neuro: Awake, alert, oriented x3. Normal station and gait. Psychiatric: Mood and affect are normal. Normal judgment. Skin: Warm and dry, no erythematous rash. Groin: No mass. No lymphadenopathy. DIAGNOSTIC DATA: AUA symptom score 02/22/18 is 21. Lab Results Component Value Date PSA 3.48 08/25/2015 PSA 1.74 04/02/2015 PSA 0.86 12/19/2014 PSA 10/24/2017 is 0.18. PSA 06/27/2017 is 0.92. PSA 03/28/2017 is 3.03. PSA 11/16/2016 is 11.54. PSA 08/25/2015 is 3.48. PSA 12/19/2014 0.86. PSA 10/01/2014 is 0.75. PSA 07/09/2014 is 22.07. Testosterone 06/27/2017 is 21. Lab Results Component Value Date ALT 22 01/17/2018 AST 26 01/17/2018 ALKPHOS 94 01/17/2018 BILITOT 0.9 01/17/2018 Lab Results Component Value Date CREA 1.06 01/17/2018 BUN 24 (H) 01/17/2018 NA 139 01/17/2018 K 3.0 (L) 01/17/2018 CL 104 01/17/2018 CO2 28 01/17/2018 Lab Results Component Value Date WBC 6.7 01/17/2018 HGB 15.3 01/17/2018 HCT 44.6 01/17/2018 MCV 96.6 01/17/2018 PLT 327 01/17/2018 Radical prostatectomy pathology revealed Elroy score 4+3 = 7 adenocarcinoma with extra pr ostatic extension, seminal vesicle invasion, and unifocal positive surgical margin anteriorl y. CT CHEST ABDOMEN PELVIS W CONTRAST 12/17/2016 1:28 PM HISTORY: Prostate cancer with biochemical recurrence, now with bone pain, assess for metastatic disease. COMPARISON: Multiple priors. PROTOCOL: Axial images of the chest, abdomen, and pelvis were obtained after uneventful administration of 90 mL Omnipaque 350 and oral contrast. Coronal and sagittal reformations were acquired. CHEST FINDINGS: Neck base is normal. The heart is of normal size. The ascending thoracic aorta is ectatic and measures 4.2 cm. There is mild atherosclerosis of the left subclavian artery origin. The pulmonary arteries are unremarkable. SVC is normal. There is a borderline lymph node in the AP window measuring 9 mm short axis (image 33). The kala are normal. Prominent but benign-appearing lymph nodes nodes are in the axilla. Trachea and esophagus are normal. There is an azygos lobe of the right lung, a normal variant. There is a stable 5 mm nodule along the left interlobar fissure dating back to 07/18/2014 that is likely to be benign (image 46). ABDOMEN/PELVIS FINDINGS: A 0.7 cm cyst is in the left hepatic lobe that is stable. The gallbladder is normal. Biliary ducts are unremarkable. The spleen is unremarkable. The pancreas demonstrates normal parenchyma and a normal pancreatic duct. Adrenal glands are normal. The right kidney and visualized ureter are normal. The left kidney and visualized ureter are normal. Stomach, small bowel, and terminal ileum are normal. The appendix has a normal appearance. Colon is unremarkable. There is mild atherosclerosis of the aorta. Mild atherosclerosis is seen in the left common iliac artery. There is no significant abnormality in the portal veins, mesenteric veins, or systemic veins. No enlarged lymph nodes are visualized within the omentum or retroperitoneum. There is no evidence for ascites or free air. Bladder is normal. Multiple clips are in the lower pelvis consistent with previous prostate resection. There is no evidence for tumor recurrence in the prostate bed. BODY WALL FINDINGS: Moderate bilateral inguinal hernias containing fat are seen. There is mild atherosclerosis of the thoracic spine. Moderate atherosclerosis is noted of the lower lumbar spine. Severe disc narrowing is at L4-5. Moderate disc narrowing is at L5-S1. Vacuum disc phenomenon are present at these 2 levels. IMPRESSION - No definite evidence for metastatic disease to the chest, abdomen, or pelvis. Previous prostatectomy with no evidence for local tumor recurrence. Stable 5 mm nodule along the left interlobar fissure dating back to 07/18/2014 that is likely to be benign. Dictated and Signed by: Horace Galvez MD Electronically signed: 12/17/2016 NM BONE SCAN WHOLE BODY 07/20/2017 9:57 AM HISTORY: PROSTATE CANCER, RISING PSA, WORSENING BONE PAIN, EVAL FOR METASTATIC DISEASE. COMPARISON: 07/20/2017 PROTOCOL: Approximately three hours after injection of 26.5m mci technetium 99m MDP, whole body images were obtained in anterior and posterior projections. FINDINGS: Symmetric moderate increased activity in the acromioclavicular joints bilaterally and at the base of the thumb bilaterally. This has typical appearance of radiotracer distribution secondary to degenerative disease. It is similar to the comparison study. Mildly increased activity in the left knee and at L4-L5, also suggestive of degenerative disease. No other areas of increased radiotracer activity. No photopenic areas to suggest lytic lesions. Soft tissue background and renal activity are within normal limits IMPRESSION - No scintigraphic evidence of osteoblastic metastatic disease. Stable focal increased uptake identified in the L5 vertebral body. 2 small foci of radiotracer uptake identified in bilateral infraorbital regions, nonspecific and possibly related to free technetium or periodontal disease. Dictated and Signed by: Rudy Velez MD Electronically signed: 07/20/2017 IMPRESSION: 1. Stage pT3b, Nx, Mx Elroy score 7 adenocarcinoma of the prostate. PSA adarsh following prostatectomy was 0.75. 2. Obstructive/irritative voiding symptoms. AUA symptom score is 21. 3. Erectile dysfunction. 4. Chronic lumbago with right sciatica. 5. Urinary incontinence. 6. Nicotine addiction. PLAN: Smoking cessation is encouraged. Lupron 22.5 mg IM today. Repeat Lupron 22.5 mg will be administered in 3 months. A PSA level will be drawn at that time. Mani will follow-up in 6 months with a PSA and comprehensive metabolic panel prior to his follow-up visit. He will continue using calcium supplement. Oncology referral at patient request. Mani will resume his usual and customary care with his primary care provider. I asked Mani to notify me if there were any difficulties voiding, or UTI symptoms, or fla nk pain, or for any questions or concerns whatsoever. This document was generated in part using voice recognition software. Frequent wrong word or sound-alike substitutions may have occurred due to the inherent limitations of the voice recognition software. Although I have attempted to edit the content, I have not thoroughly proofread this note, and associate editor errors are likely to occur. CC: Loi Frausto PA-C CC: SUSI Ayoub documented in this en counter Plan of Treatment Not on filedocumented as of this encounter Procedures + +--------+ + + + | Procedure Name | Priori | Date/Time | Associated Diagnosis | Comments | | | ty | | | | + +--------+ + + + | POCT URINALYSIS, | Routin | 02/22/2018 | Prostate cancer | Results for this | | AUTO WITH CONF | e | 5:06 PM | (HCC) | procedure are in the | | | | PDT | | results section. | + +--------+ + + + documented in this encounter Results POCT Urinalysis Dipstick Automated (02/22/2018 5:06 PM PDT) + + + + + + | Component | Value | Ref Range | Performed | Pathologist | | | | | At | Signature | + + + + + + | Color, UA, | Flor (A) | Yellow, Light | | | | POC | | Yellow | | | + + + + + + | Clarity, | Clear | | | | | UA, POC | | | | | + + + + + + | Glucose, | Negative | Negative | | | | UA, POC | | | | | + + + + + + | Bilirubin, | Negative | Negative | | | | UA, POC | | | | | + + + + + + | Ketones, | Negative | Negative, 100 | | | | UA, POC | | mg/dL | | | + + + + + + | Specific | 1.025 | 1.001 - 1.030 | | | | [place], | | | | | | UA, POC | | | | | + + + + + + | Blood, UA, | Negative | Negative | | | | POC | | | | | + + + + + + | pH, UA, POC | 6.0 | 5.0, 6.0, 7.0, | | | | | | 8.0, 5.5, 6.5, | | | | | | 7.5 | | | + + + + + + | Protein, | Negative | Negative | | | | UA, POC | | | | | + + + + + + | Urobilinoge | 0.2 | 0.2, Negative, | | | | n, UA, POC | | Normal, < 0.2 | | | | | | mg/dL, 1 mg/dL, | | | | | | < 0.2 E.U./dl, | | | | | | 1.0 E.U./dL, | | | | | | 0.2 mg/dL | | | + + + + + + | Nitrite, | Negative | Negative | | | | UA, POC | | | | | + + + + + + | Leukocyte | Negative | Negative | | | | Esterase, | | | | | | UA, POC | | | | | + + + + + + | Reducing | | | | | | Substances, | | | | | | Urine | | | | | + + + + + + | Bilirubin | | Negative | | | | Confirmatio | | | | | | n by | | | | | | Ictotest, | | | | | | Urine | | | | | + + + + + + | Remark | | | | | + + + + + + + + | Specimen | + + | Urine | + + documented in this encounter Visit Diagnoses + + | Diagnosis | + + | Prostate cancer (HCC) - Primary Malignant neoplasm of prostate | + + documented in this encounter Administered Medications + +--------+ +---------+------+ + | Medication Order | MAR | Action | Dose | Rate | Site | | | Action | Date | | | | + +--------+ +---------+------+ + | leuprolide (LUPRON DEPOT-3 | Given | 02/22/ | 22.5 mg | | Glut-Lef | | MONTH) injection 22.5 mg 22.5 | | 18 10:00 | | | t | | mg, Intramuscular, ONCE, Wed | | AM PDT | | | | | 02/22/18 at 1030, For 1 dose, | | | | | | | Chemotherapy: Use appropriate | | | | | | | handling precautions., | | | | | | + +--------+ +---------+------+ + +---+---+ | | | +---+---+ documented in this encounter
--- OUTSIDE RECORDS SUMMARY | ~2020-06-06 | XMS | Encounter Summary ---
Demographics + + + | Address | NEED ADDRESS | | | [place] [address] | + + + | Home Phone | | + + + | Preferred Language | Unknown | + + + | Marital Status | Single | + + + | Islam Affiliation | Unknown | + + + [...] Hector Garcia | ECON | [place] [address] | | + + + + + Care Team Providers + +------+ + | Care Concert Pianist Name | Role | Phone | + +------+ + | Loi Frausto PA-C | PCP | | + +------+ + Reason for Visit + +--------+ + | Reason | Onset | Comments | | | Date | | + +--------+ + | Procedure | 05/16/ | colonoscopy | | | 2016 | | + +--------+ + Encounter Details +--------+ + + + + | Date | Type | Department | Care Team | Description | +--------+ + + + + | 05/16/ | Telephone | [facility] | Saul Valentine MD | Procedure | | 2017 | | GASTROENTEROLOGY | [address] | (colonoscopy ) | | | | [address] [facility] | [place], [place] | | | | | [address] [place], [place] | [address] | | | | | [address] | [phone] | | | | | [phone] | | | +--------+ + + + [...] this encounter Miscellaneous Notes Telephone Encounter - Joanne Burrows RN - 05/16/2017 4:41 PM PDTScheduled pt for pr op colon screen with Dr. Valentine on 06/10/17 a 0930; pt has no prev colon screen; no fam hx col on cancer or polyps; pt has prostate cancer; hx of drug abuse, alcoholism, anxiety/depressio n and NAHUN; advise pt we would attempt to get prop based on ETOH as he is not being treated f or NAHUN and state he did not complete this testing; reviewed propofol and what we will do to obtain an authorization. Pt verbalized understanding. reviewed medication, surg hx and aller gies; reviewed bowel prep; rx to [facility]; info mailed to pt; completed case request order, notes to MA. docum ented in this encounter Plan of Treatment Not on filedocumented as of this encounter Visit Diagnoses + + | Diagnosis | + + | Special screening for malignant neoplasms, colon - Primary | + + | Anxiety and depression Dysthymic disorder | + + | Alcoholism (HCC) Other and unspecified alcohol dependence, unspecified drinking | | behavior | + + documented in this encounter"
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
--- OUTSIDE RECORDS SUMMARY | ~2020-06-06 | XMS | Encounter Summary ---
Demographics + + + | Address | NEED ADDRESS | | | [place] [address] | + + + | Home Phone [...] + + + | Author | [facility] | | | and [place] | + + + | Organization | [facility] | | [...] + | Hector Garcia | ECON | [place] [address] | | + + + + + Care Team Providers + +------+ + | Care Server Support Technician Name | Role | Phone | + +------+ + | Loi Frausto PA-C | PCP | | + +------+ + Reason for Visit Diagnostic/Screening (Routine) +--------+--------+ [...] (HCC) | [address] | [address] | | | | | Procedures | [address] [place] | [place], | | | | | [place] Bone | [place], [place] | [place] | | | | | Scan Whole | [address] | [address] | | | | | Body [place] | Phone: | Phone: | | | | | BONE | [phone] | [phone] | | | | | IMAGING, | Fax: | Fax: | | | | | WHOLE BODY | [phone] | [phone] | +--------+--------+ + + + + Encounter Details +--------+ + + + + | Date | Type | Department | Care Team | Description | +--------+ + + + + | 11/15/ | Hospital | [facility] | Zeeshan Hawkins, | | | 2019 | Encounter | MED CTR NUCLEAR | MD [address] | | | | | MEDICINE [address] | [place], [place] | | | | | [address], | [address] | | | | | [place] [address] | | | | | | [phone] | | | +--------+ + + + [...] NM BONE SCAN WHOLE | Routin | 11/15/2019 | Prostate cancer | Results for this | | BODY | e | 12:52 PM | (HCC) | procedure are in the | | | | PST | | results section. | + +--------+ + + + documented in this encounter Results NM Bone Scan Whole Body (11/15/2019 12:52 PM PST) + + | Specimen | + + | | + + + + + | Impressions | Performed At | + + + | Focal increased radiotracer uptake seen along the anterior lateral | [facility] | | aspects of the right fifth and sixth ribs normal, suspicious. | | | Focal uptake is seen involving the left lateral knee compartment. | | | Other presumable degenerative areas of uptake seen throughout the | | | axial and appendicular skeleton. Dictated and Signed by: Rudy | | | MD Rosie Electronically signed: 11/15/2019 1:23 PM | | + + + + + + | Narrative | Performed At | + + + | NM BONE SCAN WHOLE BODY 11/15/2019 8:59 AM HISTORY: prostate | [facility] | | cancer abnormal alkaline phosphatase C4 spinal lesion. | | | COMPARISON: 07/20/2017 PROTOCOL: Approximately three hours after | | | injection of 25.9 mCi technetium 99m MDP, whole body images were | | | obtained in anterior and posterior projections. FINDINGS: | | | Degenerative uptake is seen involving the left lateral knee | | | compartment. Focal increased radiotracer uptake is seen in the right | | | lateral fifth and sixth ribs. No other areas of presumably | | | degenerative uptake is seen scattered throughout the lumbar spine. | | | Normal activity is visualized within the kidneys and bladder. | | + + + + + | Procedure Note | + + | Frank, Rad Results In - 11/15/2019 1:26 PM PST NM BONE SCAN WHOLE BODY 11/15/2019 8:59 | | AM HISTORY: prostate cancerabnormal alkaline phosphataseC4 spinal lesion.COMPARISON: | | 07/20/2017PROTOCOL: Approximately three hours after injection of 25.9 mCi technetium | | 99mMDP, whole body images were obtained in anterior and posterior | | projections.FINDINGS:Degenerative uptake is seen involving the left lateral knee | | compartment. Focalincreased radiotracer uptake is seen in the right lateral fifth and | | sixth ribs.No other areas of presumably degenerative uptake is seen scattered | | throughoutthe lumbar spine.Normal activity is visualized within the kidneys and | | bladder.IMPRESSION: Focal increased radiotracer uptake seen along the anterior lateral | | aspects ofthe right fifth and sixth ribs normal, suspicious.Focal uptake is seen | | involving the left lateral knee compartment. Otherpresumable degenerative areas of | | uptake seen throughout the axial andappendicular skeleton.Dictated and Signed by: Rudy | | MD Rosie Electronically signed: 11/15/2019 1:23 PM | |increased radiotracer uptake is seen in the right lateral fifth and sixth ribs. | |No other areas of presumably degenerative uptake is seen scattered throughout | |the lumbar spine. | | | |Normal activity is visualized within the kidneys and bladder. | | | |IMPRESSION: | |Focal increased radiotracer uptake seen along the anterior lateral aspects of | |the right fifth and sixth ribs normal, suspicious. | | | |Focal uptake is seen involving the left lateral knee compartment. Other | |presumable degenerative areas of uptake seen throughout the axial and | |appendicular skeleton. | | | |Dictated and Signed by: Rudy Velez MD | | Electronically signed: 11/15/2019 1:23 PM | + + + +---------+ + + | Performing | Address | City/State/Zipcode | Phone Number | | Organization | | | | + +---------+ + + | [facility] | | | | + +---------+ + + documented in this encounter Visit Diagnoses Not on filedocumented in this encounter"
--- OUTSIDE RECORDS SUMMARY | ~2020-06-06 | XMS | Encounter Summary ---
Demographics + + + | Address | NEED ADDRESS | | | [place] [address] | + + + | Home Phone | | + + + | Preferred Language | Unknown | + + + | Marital Status | Single | + + + | Zoroastrianism Affiliation | Unknown | + + + | Race | White | + + + | Ethnic Group | Not or | + + + Author + + + | Author | [facility] | | | and [place] | + + + | Organization | [facility] | | | [...] + | Hector Garcia | ECON | [place] [address] | | + + + + + Care Team Providers + +------+ + | Care Starch Dumper Name | Role | Phone | + [...] | | | | Diagnoses | | | | | | | Left carpal | | | | | | | tunnel | | | | | | | syndrome | | | | | | | (G56.02) | | | | | | | Procedures | | | | | | | CO REVISE | | | | | | | MEDIAN | | | | | | | N/CARPAL | | | | | | | TUNNEL SURG | | | | | | | Left Carpal | | | | | | | Tunnel | | | | | | | Release | | | +--------+--------+ + + + + Encounter Details +--------+ + + + + | Date | Type | Department | Care Team | Description | +--------+ + + + + | 03/10/ | [facility] | [facility] | Remberto Hurst, | Left carpal tunnel | | 2018 | Encounter | MED CTR OR [facility] | MD [address] | syndrome | | | | [address] | [place] | | | | | [place] | [address] | | | | | [id number] | | | | | | [phone] | | | +--------+ + + + [...] + + + | Blood Pressure | 142/86 | 03/10/2018 1:30 PM | | | | | PDT | | + + + + + | Pulse | 87 | 03/10/2018 1:30 PM | | | | | PDT | | + + + + + | Temperature | 37.1 C (98.8 F) | 03/10/2018 1:26 PM | | | | | PDT | | + + + + + | Respiratory Rate | 12 | 03/10/2018 1:30 PM | | | | | PDT | | + + + + + | Oxygen Saturation | 98% | 03/10/2018 1:30 PM | | | | | PDT | | + + + + + | Inhaled Oxygen | - | - | | | Concentration | | | | + + + + + | Weight | 87.3 kg (192 lb 7.4 | 03/10/2018 12:29 PM | | | | oz) | PDT | | + + + + + | Height | 175.3 cm (5' 9") | 03/10/2018 12:29 PM | | | | | PDT | | + + + + + | Body Mass Index | 28.42 | 03/10/2018 12:29 PM | | | | | PDT | | + + + + + documented in this encounter Discharge Instructions Instructions Vivienne Reza RN - 03/10/2018 Elevated and Wiggle fingers frequently Discharge Instructions for Carpal Tunnel Release You had a carpal tunnel release procedure to help relieve the symptoms of carpal tunnel syn drome. In carpal tunnel syndrome, a nerve in the wrist is compressed and irritated. This cau ses numbness and pain in the fingers and hand. Carpal tunnel release relieves the compressio n of the nerve. Here are instructions that will help you care for yourarm and wristwhen you are at home. Home care Don't supervisor sanding objects tightly or lifting with your affected arm. Wear your bandage, splint, or cast as directed by your doctor. Always keep the dressing, splint, or cast dry and clean. When showering, cover your hand and wrist with plastic and use tape or rubberbands to keep the dressing, splint, or cast dry. Shower as necessary. Use an ice pack or bag of frozen peas or something similar wrapped in a thin towel on your wrist to reduce swelling for the [id number]. Leave the ice pack on [id number] [id number]; then take it off [id number]. Repeat as needed. Keep your arm elevated above your heart for24 to 48hours after surgery. Do the exercises you learned in the hospital, or as instructed by your doctor. Take pain medicine as directed. Don t drive until your doctor says it s OK. Never drive while you are taking opioid pain medicine. Ask your doctor when youcan return to work. If your job requires heavy lifting, you ma y not be able to begin working again for several weeks. Follow-up care Make a follow-up appointment as directed by your doctor. Call 911 Call 911 right away if you have any of the following: Chest pain Shortness of breath When to call your healthcare provider Call your healthcare provider right away if you have any of the following: A splint, cast, or dressing that has gotten wet Increased bleeding or drainage from the incision (cut) Opening of the incision Fever of100.4F(38C) or higher, or as directed by your healthcare provider Shaking chills Any new numbness in the fingers or thumb Blue hand or fingers Increased pain with or without activity Increased redness, tenderness, or swelling of the incision Date Last Reviewed: 08/10/[id number] [employer]. [address] [place] [id number]. All [facility] ts reserved. This information is not intended as a substitute for professional medical care. Always follow your healthcare professional's instructions. documented in this encounter Medications at Time of Discharge + + + +---------+ + + | Medication | Sig | Dispensed | Refills | Start | End Date | | | | | | Date | | + + + +---------+ + + | amitriptyline | in the evening as | | 0 | // | | | (ELAVIL) 10 mg | [...] + + documented as of this encounter H&P Notes Remberto Hurst MD - 03/10/2018 12:49 PM PDTNo changes to history and physical Plan left carpal tunnel release 12 :50 PM Remberto Bob MD - 03/04/2018 12:23 PM PDTFormatting of this note might be diff erent from the original. History of present illness: Mani is a 52 y.o. male who presents with a chief complaint le ft hand pain and numbness Patient with a history alcoholism, drug abuse, nicotine addiction, anxiety and depression, prostate cancer and s/p a stroke that has left him with left side weakness and dysarthria pr esents with increase in left hand pain and numbness over the last 6 months. He states it inv olves the thumb and all fingers except the small finger. He was seen by Dr. Grider who did ne rve conduction studies and is referred her for consideration for carpal tunnel release surge ry. He has no triggering complaints of any digits. He is s/p an STT fusion right wrist by Dr Ruben Delgado about 10 years ago for arthritis. He continues to smoke 1PPD cigarettes for the last over 20 years and marijuana 5 times per week Past Medical History: Diagnosis Date Alcoholism (HCC) Alopecia Androgen deprivation therapy Anxiety and depression Essential hypertension, benign GERD (gastroesophageal reflux disease) Hyperlipemia Mixed, or nondependent drug abuse Nicotine addiction Organic insomnia NAHUN (obstructive sleep apnea) no CPAP Osteoarthritis Polyp, sigmoid colon Prostate cancer (HCC) 11/24/2013 Radical prostatectomy Stroke ([facility]) 2012 Left sided numbness and weakness TIA (transient ischemic attack) Tobacco use Tongue ulcer Past Surgical History: Procedure Laterality Date COLONOSCOPY N/A 06/10/2017 Procedure: COLONOSCOPY; Surgeon: Saul Valentine MD; Location: [facility] IT LUMBAR DISCECTOMY 1992 ORTHOPEDIC SURGERY Right 2008 thumb PROSTATECTOMY 08/01/14 No Known Allergies Current Outpatient Prescriptions on File Prior to Visit Medication Sig Dispense Refill acetaminophen (TYLENOL) 325 [...] by mouth nightly. No current facility-administered medications on file prior to visit. 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 Review of Systems Eyes: [] Double vision [] Glasses/contacts [] Failing vision Ear/Nose/Throat: [] Frequent Colds [] Sinus Disease [] Nose obstruction [] Sneezing Spells [] Change in taste [] Artificial teeth [x] Ears ringing [x] Ear pain [] Hearing lo ss [] Teeth problems [] Hoarseness [] Neck swelling [] Sore throat [] Congestion [] Nosebleeds [] Nasal allergies Respiratory: [] Asthma/Wheezing [] Pneumonia [x] Night sweats [] Shortness of breath [] Chronic cough [] Coughing up blood [] Exposure to tuberculosis Cardiovascular: [] Heart Problems [x] Hypertension [] Heart murmur [] Palpitations [] Rheumatic fever [] Phlebitis [] Chest pain [] Ankle swelling [x] Leg cramps [] Raci ng heart [] Skipping beats [] Blood clots Gastrointestinal: [] Abdominal pain [] Heartburn [] Blood from rectum [] Colitis [] Gallbladder problems [] Troubl e swallowing [] Bloated stomach [] Change in stools [] Vomiting b lood [] Nausea [] Hemorrhoids [] Jaundice [ ] Hepatitis [] Diarrhea [] Constipation [] Diverticulitis Urinary Tract: [] Painful urination [] Kidney Stones [x] Any urine leakage [] Weak urine stream [x] Night urination [] Urine infections [] Bedwetting [] Blood in urine Skin: [] Skin rashes [] Itching/Burning [x] Skin bruises easi ly [] Artificial tanning [] Skin cancer [x] Hair loss [] Changes in moles Musculoskeletal: [x] Physical handicaps [x] Back or shoulder pain []Rheumatoid disease [] Osteoarthritis [x] Joint pain [x] Joint swelling []Gout [] Leg cramps at night Neurological: [] Headaches [] Seizures [x] Stroke/TIA [] Faintness [] Tremors [x] Numbness [] Dizziness [] Changes in handwriting [x] Memory loss [x] Shooting pains Psychiatric: [] Depression [] Suicidal thoughts [] Sleep pattern changes [] Appetite changes [] Recent counseling [] Nervousness/anxiety [] Physical violence [] Marital problems Endocrine: [] Thyroid [] Diabetes Systemic: []Weight loss/gain (over 10 lbs) []Fever/chills []Fatigue [] Sleeping Difficulties [] Speech change [] Voice change Vitals: BP 146/94 Pulse 110 Temp 36.6 C (97.9 F) (Temporal) Ht 1.753 m (5' 9") Wt 86.6 kg (191 lb) BMI 28.21 kg/m BSA 2.05 m Heart - regular rate and rhythm Lungs - clear Abdomen - soft and nontender Extremities On physical exam he has decreased sensation to light touch thumb, index, long and ring fing ers left hand He has intact palmar abduction and opposition strength He has no thenar eminence atrophy No triggering of any digits Negative tinel sign over the carpal tunnel He has prominence and tenderness consistent with first cmc arthritis left hand He has IP heberden nodes consistent with osteoarthritis xrays left hand reviewed by me and show multiple IP joint and first cmc arthrosis from oste oarthritis Nerve conduction studies by Dr. Grider reviewed and consistent with median neuropathy at the carpal tunnel Assessment:left carpal tunnel syndrome Plan:the natural history and treatment options discussed at length with him today The role of carpal tunnel release with the inherent risks and reasonable expectations for r ecovery all discussed with him today He wishes to proceed with left carpal tunnel release under IV sedation and local documented in this en counter Miscellaneous Notes Op Note - Remberto Hurst MD - 03/10/2018 2:14 PM PDTPRE-OP DIAGNOSIS: Carpal Tunnel Synd chey Left Hand POST-OP DIAGNOSIS Carpal Tunnel Syndrome Left Hand PROCEDURE: Left Carpal Tunnel Release OPERATING SURGEON: Remberto Hurst MD PROCEDURE IN DETAIL: After informed consent is obtained the patient is taken to the operati ng room and underwent IV sedation per Dr. Orosco. preliminary local anesthesia of the proposed incision site with 10cc 1% lidocaine and 20 cc naropin point 2 percent -no epinephrine. After sterile prep and drape appropriate time out and surgical safety checklist is complete d. An incision is made starting about 1 cm distal to the transverse wrist crease an extended along a line drawn from the radial border of the ring finger. The incision is deepened thru the skin and subcutaneous tissues and butts fascia. A self retaining retractor is placed i n the wound and the transverse carpal ligament is put on tension. The ligament is carefully sectioned in the midline, the median nerve is encountered and protected with a penfield retr actor as the dissection is continued distally to the fat pad. Proximally the dissection is c ontinued and the release is performed well into the distal forearm fascia with curved Gonzales s cissors. At the completion of the procedure the nerve is felt to be completely decompressed. Hemostasis is performed with bipolar cautery. The wound is irrigated and closed using 4-0 n ylon interrupted skin sutures in a horizontal mattress. Sterile dressings applied and held i n place with a compressive bulky kerlix roll. The patient left the operating room in stable condition and tolerated the procedure well. EBL:5cc Remberto Hurst MD docume nted in this encounter Plan of Treatment Not on filedocumented as of this encounter Procedures + +--------+ + + + | Procedure Name | Priori | Date/Time | Associated Diagnosis | Comments | | | ty | | | | + +--------+ + + + | RELEASE CARPAL | | 03/10/2018 | Left carpal tunnel | | | TUNNEL | | 12:53 PM | syndrome (G56.02) | | | | | PDT | | | + +--------+ + + + +---+--------+ | | Case | | | Notes | | | | | | *PROPO | | | FOL | | | ANESTH | | | ESIA | | | PER | | | KEW* | +---+--------+ documented in this encounter Visit Diagnoses + + | Diagnosis | + + | Left carpal tunnel syndrome Carpal tunnel syndrome | + + documented in this encounter Administered Medications + +--------+---------+------+------+------+ | Medication Order | MAR | Action | Dose | Rate | Site | | | Action | Date | | | | + +--------+---------+------+------+------+ + +---+ | albuterol 2.5 mg/3 mL nebulizer | | | solution 2.5 mg 2.5 mg, | | | Nebulization, ONCE PRN, Wheezing, | | | Starting Tue03/10/18 at 1228, | | | For 1 dose, RT will administer., | | | Pre-op | | + +---+ | | | + +---+ | albuterol 2.5 mg/3 mL nebulizer | | | solution 2.5 mg 2.5 mg, | | | Nebulization, ONCE PRN, Wheezing, | | | Starting Tue03/10/18 at 1327, | | | For 1 dose, Notify anesthesia if | | | patient is wheezing and does not | | | have a history of asthma or COPD | | | or current smoking., | | | Recovery/Phase I | | + +---+ | | | + +---+ | albuterol-ipratropium (DUONEB) | | | 2.5-0.5 mg/3 mL nebulizer | | | solution 3 mL 3 mL, | | | Nebulization, ONCE PRN, Wheezing, | | | Starting Tue03/10/18 at 1228, | | | For 1 dose, Pre-op | | + +---+ | | | + +---+ | albuterol-ipratropium (DUONEB) | | | 2.5-0.5 mg/3 mL nebulizer | | | solution 3 mL 3 mL, | | | Nebulization, ONCE PRN, Wheezing, | | | Shortness of Breath, Starting | | | 03/10/18 at 1327, For 1 dose, | | | Recovery/Phase I | | + +---+ | | | + +---+ | ceFAZolin (ANCEF, KEFZOL) 100 | | | mg/mL IV syringe 1 g 1 g, | | | Intravenous, Administer over 30 | | | Minutes, Prior to Incision, | | | Starting 03/10/18 at 1228, For | | | 1 dose, administer within 1 hour | | | of incision, Pre-op, | | | Indications: Surgical Prophylaxis | | + +---+ | | | + +---+ | dextrose 50% injection 12.5-25 | | | g 12.5-25 g, Intravenous, EVERY | | | 15 MIN PRN, Low Blood Sugar, Give | | | 12.5g (25 mL) IV if blood | | | glucose 50-69 mg/dL. Give 25g | | | (50 mL) IV if blood glucose < 50, | | | Starting 03/10/18 at 1228, | | | Repeat in 15 min if blood glucose | | | remains < 70 mg/dL. Repeat | | | blood glucose in 30 min once | | | blood glucose > 70., Pre-op | | + +---+ | | | + +---+ | dextrose 50% injection 12.5-25 | | | g 12.5-25 g, Intravenous, EVERY | | | 15 MIN PRN, Low Blood Sugar, For | | | hypoglycemia. Give 12.5g (25ml) | | | IV if blood glucose 50-69 | | | mg/dL. Give 25g (50ml) IV if | | | blood glucose < 50, Starting Fri | | | 03/10/18 at 1327, Give over 2 min. | | | Repeat in 15 min if blood | | | glucose remains < 70 mg/dL. | | | Repeat blood glucose in 30 min | | | once blood glucose > 70., | | | Recovery/Phase I | | + +---+ | | | + +---+ | fentaNYL (PF) injection 25-50 | | | mcg 25-50 mcg, Intravenous, | | | EVERY 5 MIN PRN, Pain, Starting | | | Tue03/10/18 at 1327, Maximum | | | total dose 250 mcg. PACU IV | | | Narcotic Priority: Only use | | | fentanyl for immediate post-op | | | pain (one dose) or breakthrough | | | pain when any other IV narcotics | | | ordered have been ineffective (if | | | ordered). If both morphine and | | | hydromorphone are ordered, use | | | morphine first, and use | | | hydromorphone if morphine | | | ineffective., Recovery/Phase I | | + +---+ | | | + +---+ + +---------+ +---+-------+---+ | lactated ringers (LR) infusion | New Bag | 03/10/20 | | 100 | | | at 10-100 mL/hr, Intravenous, | | 18 12:51 | | mL/hr | | | CONTINUOUS, Starting Tue03/10/18 | | PM PDT | | | | | at 1245, TKO., Pre-op | | | | | | + +---------+ +---+-------+---+ + +---+ | | | + +---+ | ondansetron (ZOFRAN) injection | | | 4 mg 4 mg, Intravenous, ONCE | | | PRN, Nausea, Starting 03/10/18 | | | at 1327, For 1 dose, | | | Recovery/Phase I | | + +---+ | | | + +---+ | promethazine (PHENERGAN) (IV | | | ONLY) injection 6.25 mg 6.25 mg, | | | Intravenous, EVERY 15 MIN PRN, | | | Nausea, Vomiting, Starting Fri | | | 03/10/18 at 1327, For 4 doses, | | | TAKE PRECAUTIONS WHEN | | | ADMINISTERING Dilute to 10-20mL | | | with NS. Give over 2-3 minutes | | | into large vein. Use ondansetron | | | first if both are ordered., | | | Recovery/Phase I | | + +---+ | | | + +---+ documented in this encounter
--- OUTSIDE RECORDS SUMMARY | ~2020-06-06 | XMS | Clinical Summary ---
Demographics + + + | Address | NEED ADDRESS | | | [place] [address] | + + + | Home Phone | | + + + | Preferred Language | Unknown | + + + | Marital Status | Single | + + + | Orthodoxy Affiliation | Unknown | + + + [...] Hector Garcia | ECON | [place] [address] | | + + + + + Care Team Providers + +------+ + | Care Animal Eviscerator Name | Role | Phone | + +------+ + | Loi Frausto PA-C | PCP | | + +------+ + Allergies No Known Allergies Medications + + + +---------+------+------+-------+ | Medication | Sig | Dispensed | Refills | Star | End | Statu | | | | | | t | Date | s | | | | | | Date | | | + + + +---------+------+------+-------+ | losartan (COZAAR) | take 1 tablet by | 90 | 3 | 05/0 | | Activ | | 50 mg tablet | mouth once daily | tablet | | 03/15 | | e | | | | | | 16 | | | + + + +---------+------+------+-------+ +---+ + | | Additional | | | InformationPatient | | | taking differently: | | | take 2 tablet by | | | mouth once daily, | | | Reported on | | | 10/06/2017 9:16 AM | +---+ + + + +---------+---+------+---+-------+ | amitriptyline | in the evening as | | 0 | 07/0 | | Activ | | (ELAVIL) 10 mg | needed | | | 12/13 | | e | | tablet | | | | 17 | | | + + +---------+---+------+---+-------+ | omeprazole | take 1 capsule by | | 0 | 08/1 | | Activ | | (PRILOSEC) 20 mg | mouth daily prn | | | 5/20 | | e | | capsule | | | | 17 | | | + + +---------+---+------+---+-------+ | pravastatin | take 1 tablet by | | 0 | 08/1 | | Activ | | (PRAVACHOL) 40 MG | mouth every evening | | | 5/20 | | e | | tablet | | | | 17 | | | + + +---------+---+------+---+-------+ | traZODone | Take 50-100 mg by | | 0 | 11/0 | | Activ | | (DESYREL) 50 mg | mouth nightly. | | | 7/20 | | e | | tablet | | | | 17 | | | + + +---------+---+------+---+-------+ | | Take 50 mg by mouth | | 0 | 03/3 | | Activ | | hydroCHLOROthiazide | Daily. | | | 0/20 | | e | | 25 mg tablet | | | | 18 | | | + + +---------+---+------+---+-------+ | UNABLE TO FIND | Med Name: Resmed | | 0 | | | Activ | | | AirSense 10 autoset | | | | | e | | | CPAP: 5-15cm while | | | | | | | | sleeping | | | | | | + + +---------+---+------+---+-------+ | atenolol | Take 100 mg by mouth | | 0 | 08/1 | | Activ | | (TENORMIN) 50 mg | Daily. | | | 3/20 | | e | | tablet | | | | 18 | | | + + +---------+---+------+---+-------+ | fluticasone | 1 spray by Nasal | | 0 | 08/1 | | Activ | | (FLONASE) 50 | route as needed. | | | 3/20 | | e | | mcg/nasal spray | | | | 18 | | | + + +---------+---+------+---+-------+ | RA ACETAMINOPHEN | take 2 tablet by | | 0 | 11/1 | | Activ | | EX ST 500 MG tablet | mouth every 6 hours | | | 4/20 | | e | | | if needed for | | | 18 | | | | | MODERATE PAIN | | | | | | + + +---------+---+------+---+-------+ | gabapentin | take 1 capsule by | | 0 | 11/2 | | Activ | | (NEURONTIN) 300 mg | mouth three times a | | | 8/20 | | e | | capsule | day if needed for | | | 18 | | | | | pain | | | | | | + + +---------+---+------+---+-------+ | cyclobenzaprine | Take 1 tablet by | 90 | 1 | 08/1 | | Activ | | (FLEXERIL) 10 mg | mouth 3 times daily | tablet | | 6/20 | | e | | tablet | as needed for Muscle | | | 19 | | | | | spasms. | | | | | | + + +---------+---+------+---+-------+ | oxyCODONE | Take 0.5-3 tablets | 90 | 0 | 08/1 | | Activ | | (ROXICODONE) 5 mg | by mouth every 4 | tablet | | 6/20 | | e | | tablet | hours as needed for | | | 19 | | | | | Pain. | | | | | | + + +---------+---+------+---+-------+ | docusate sodium | Take 100 mg by mouth | 60 | 3 | 08/1 | | Activ | | (COLACE) 100 MG | 2 times daily. | capsule | | 6/20 | | e | | capsule | | | | 19 | | | + + +---------+---+------+---+-------+ | DULoxetine | Take 60 mg by mouth | | 0 | 09/1 | | Activ | | (CYMBALTA) [address] | Daily. | | | 3/20 | | e | | capsule | | | | 19 | | | + + +---------+---+------+---+-------+ | gabapentin | Take 600 mg by mouth | | 0 | 09/0 | | Activ | | (NEURONTIN) 600 MG | 2 times daily. | | | 4/20 | | e | | tablet | | | | 19 | | | + + +---------+---+------+---+-------+ Active Problems + + + | Problem | Noted Date | + + + | Impingement syndrome of right shoulder | 06/28/2019 | + + + | Impingement syndrome of left shoulder region | 06/28/2019 | + + + | Shoulder separation, left, initial encounter | 05/29/2019 | + + + | S/P lumbar laminectomy | 05/29/2019 | + + + | Neurogenic claudication | 05/07/2019 | + + + + + | Overview: Added automatically from request for surgery | | [id number] | + + + + + | Displacement of lumbar intervertebral disc without myelopathy | 05/07/2019 | + + + + + | Overview: Added automatically from request for surgery | | [id number] | + + + + + | Muscle wasting and atrophy, NEC, unsp thigh | 05/07/2019 | + + + + + | Overview: Added automatically from request for surgery | | [id number] | + + + + + | Spinal stenosis of lumbar region | 05/04/2019 | + + + | DDD (degenerative disc disease), lumbar | 05/04/2019 | + + + + + | Overview: Referred to Neurosurgery 04/18/2019MRI | | 04/18/2019:Last Assessment & Plan: Continue current medication | | regimen. Patient is currently stable and has follow-up later | | this week on Tuesday with Neurosurgery for consultation. Very | | important to keep that appointment and patient was agreeable. ER | | precautions reviewed. | + + + + + | Atrophy of quadriceps femoris muscle | 05/04/2019 | + + + | Torus mandibularis | 04/03/2019 | + + + + + | Overview: XR 04/02/19 | | Related to tx for prostate cancer? | | Needs to see his dentist | + + + + + | Chronic shoulder pain | 09/04/2018 | + + + + + | Overview: Overview: Followed by Physical Medicine and | | RehabilitationNote 08/30/2018: Will trial injections, PT | | consider MRI in the future. Recommended continuing increasing | | gabapentin from PCP office. | + + + + + | Bone metastases | 02/28/2018 | + + + | Hearing problem of both ears | 11/18/2017 | + + + + + | Overview: Overview: | | ENT note 11/16/2017-Dr. Grider | + + + + + | Cervical radiculopathy | 11/14/2017 | + + + + + | Overview: Overview: Physical medicine rehabilitation note | | 11/09/2017Suspect left cervical radiculopathy. MRI ordered. | | Previous CT scan which reveals moderate and severe cervical | | spondylosis.Followed by Dr. Rajendra valenzuela note | | 02/06/2018:Overview: Physical medicine rehabilitation note | | 11/09/2017Suspect left cervical radiculopathy. MRI ordered. | | Previous CT scan which reveals moderate and severe cervical | | spondylosis.Followed by Dr. Rajendra valenzuela note | | 02/06/2018:Last Assessment & Plan: Given the patient's history of | | radiculopathy does have some numbness and tingling in the upper | | extremities also previous diagnosis of carpal tunnel syndrome, | | switching from naproxen to gabapentin may be a good option for | | the patient, we will discontinue naproxen for now, initiate | | gabapentin 300 mg 1-3 times daily. Recheck in 1 month.Overview: | | Physical medicine rehabilitation note 11/09/2017Suspect left | | cervical radiculopathy. MRI ordered. Previous CT scan which | | reveals moderate and severe cervical spondylosis.Followed by | | Rajendra valenzuela note 02/06/2018:Rehabilitation note | | 08/30/2018: Recommended continue tapering up on gabapentin with | | close monitoring by PCP office.Last Assessment & Plan: Given the | | patient's history of radiculopathy does have some numbness and | | tingling in the upper extremities also previous diagnosis of | | carpal tunnel syndrome, switching from naproxen to gabapentin may | | be a good option for the patient, we will discontinue naproxen | | for now, initiate gabapentin 300 mg 1-3 times daily. Recheck in | | 1 month. | | | |Last Assessment & Plan: | |Given the patient's history of radiculopathy does have some numbness and tingling in the up per extremities also previous diagnosis of carpal tunnel syndrome, switching from naproxen t o gabapentin may | |be a good option for the patient, we will discontinue naproxen for now, initiate gabapentin 300 mg 1-3 times daily. Recheck in 1 month. | + + + + + | Left carpal tunnel syndrome | 11/14/2017 | + + + + + | Overview: Overview: Rehabilitation note 11/09/2017 physical | | medicineLeft carpal tunnel releases recommended-referred to | | Orthopedic surgery Remberto Hurst MD.Operative report | | 03/10/2018-left carpal tunnel release surgery | + + + + + | Dry mouth | 10/17/2017 | + + + + + | Overview: Overview: Physical medicine note | | 10/13/2017:Mentioned concerns about dry mouth-possibly related to | | medications Cymbalta/trazodone/amitriptylineConcerns about | | possible tardive dyskinesia, noted to protrude his tongue out | | multiple times. -tardive dyskinesia verses recent removal of | | leukoplakia on under side of tongue verses dry mouth | + + + + + | Tongue mass | 10/04/2017 | + + + | Localized osteoarthritis of left hand | 09/05/2017 | + + + + + | Overview: Overview: | + + + + + | Tongue ulcer | 08/02/2017 | + + + + + | Overview: Overview: Bottom of right tongue, present for 3+ | | months, nonhealing. Concerning for malignancy given his smoking | | history.Referral to ENT-followed by Dr. Corado Assessment & | | Plan: Patient reports that he does have ENT visit scheduled for | | recheck of a sublingual ulceration/lesion.Overview: Bottom of | | right tongue, present for 3+ months, nonhealing. Concerning for | | malignancy given his smoking history.Referral to ENT-followed by | | Dr. Corado Assessment & Plan: Much improved since last visit, | | seems to have responded well to the antibiotics. Ulcers to see | | me closer to ultimate healing at this point, still encouraged him | | follow up with his ENT. He reports he has point with his did | | coming up soon as well. | | | |Last Assessment & Plan: | |Much improved since last visit, seems to have responded well to the antibiotics. Ulcers to see me closer to ultimate healing at this point, still encouraged him follow up with his EN T. He reports he has point with his did coming up soon as well. | + + + + + | Androgen deprivation therapy | 07/01/2017 | + + + + -+ | Overview: Overview: Followed by [facility] for prostate cancer.[facility] | | note from 06/27/2017 indicates planned for 2 years of ADTLast | | note from [facility] Heme-Onc: 10/24/2017Needs visual in monitoring of | | blood pressure, blood glucose and lipids, preventative measures | | should be pursued in man with history of cardiovascular disease | | on ADT such as: Regular S lipid-lowering, blood pressure control | | among hypertensives, and tight control of glucose levels among | | diabetics.Last Assessment & Plan: Patient will continue to follow | | up with [facility] for his androgen deprivation therapy. Last plan on | | 06/27/2017 indicated patient will be on this for 2 years to | | treat his prostate cancer. | |Patient will continue to follow up with [facility] for his androgen deprivation therapy. Last pl an on 06/27/2017 indicated patient will be on this for 2 years to treat his prostate cancer. | + -+ + + + | Polyp, sigmoid colon | 06/15/2017 | + + + + + | Overview: Overview: | | | | Pathology report 06/10/2017 | | Sigmoid colon polyp, tubular adenoma (2 fragments). | | No evidence of cancer or malignancy in the polyp. | | Recommend repeat colonoscopy in 3-5 years for polyp surveillance. | + + + + + | Special screening for malignant neoplasms, colon | 06/09/2017 | + + + | Body aches | 05/10/2017 | + + + + + | Overview: Last Assessment & Plan: On going very bothersome | | body aches and pains, possibly related to ADT therapy verses | | other etiology, patient does have history of osteoarthritis, | | never been checked for rheumatoid arthritis no family history of | | RA. Given his significant symptoms we will check rheumatological | | workup to make sure he does not have RA. | + + + + + | Cervical stenosis of spine | 12/10/2015 | + + + + + | Overview: posterior disc bulges at C5-6 and C6-7, with | | probable narrowing of the thecal sac to an estimated 10 mm in | | midline AP diameter | + + + + + | Insomnia due to medical condition | 12/09/2015 | + + + | Alcoholism | 12/09/2015 | + + + | Angioedema | 04/21/2015 | + + + | Dental abscess | 04/21/2015 | + + + | Anxiety and depression | 04/02/2015 | + + + + + | Overview: Overview: Consider initiating Cymbalta given his | | pain.Last Assessment & Plan: Compliant with Cymbalta 60 mg daily. | | Still having some depression symptoms, agreeable to me with | | Brandyn the behavior health recruiting operations consultant today to discuss in further | | detail, encouraged to regular follow-up as needed with him for | | therapy/counseling for his depression. | + + + + + | CA of prostate | 02/20/2014 | + + + + + | Overview: Overview: Patient is also now following up with | | local urology: Dr. Hawkins where he is receiving his Lupron | | injections. - due to difficulty following up with [facility] because of | | travel cost.Referred to local oncology on 02/06/2018 by Physical | | Medicine as patient has difficult time getting to [facility] | | appointments.Local Heme-Onc consultation 01/27/2018:Currently | | receiving Lupron injections every 3 months, through [facility] | [facility].Note from [facility] regarding disability | | paperwork:"side effect of ADT therapy is osteoporosis and patient | | will need to have annual Dexa scan completed after ADT | | treatment, however, as long as patient is taking his | | calcium/vitamin D as well as completing strength training | | exercises, 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 He has been following up | | with them every 3 months for Lupron injections. Per patient | | request will place referral to local urology to see if he can be | | followed here locally which would accommodate him and his | | financial situation better. I informed him that in the meantime | | he should continue to follow up with [facility], he should also contact | | their office to make sure that his records are appropriately | | transferred or if they have any specific recommendations of who | | he should see here locally for treatment.Patient is also now | | following up with local urology: Dr. Hawkins where he is receiving | | his Lupron injections. - due to difficulty following up with | | [facility] because of travel cost.Referred to local oncology on | | 02/06/2018 by Physical Medicine as patient has difficult time | | getting to [facility] appointments.Local Heme-Onc consultation | | 01/27/2018:Currently receiving Lupron injections every 3 months, | | through [facility].Note from [facility] | | regarding disability paperwork:"side effect of ADT therapy is | | osteoporosis and patient will need to have annual Dexa scan | | completed after ADT treatment, however, as long as patient is | | taking his calcium/vitamin D as well as completing strength | | training exercises, 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 He has history of prostate | | cancer with suspected bone metastases. Patient was encouraged to | | reestablish and continue his in Care which is very important for | | his known prostate cancer. | + + + + + | Preventative health care | 12/17/2013 | + + + + + | Overview: PSA Date Result | | 08/25/15 3.48 | | 04/02/15 1.74 | | 12/19/14 0.86 | | 05/31/14 20.94 | | 02/19/14 86.19 | | 11/30/13 75.46 | | | | Prostate Biopsy: 02/13/14 [facility] Prostatic Adenocarcinoma | | GS 4+3=7/10 (95%) in all 12 biopsies | | | | CT Abd/Pelvis 07/20/17 [facility] | | 12/17/16 [facility] | | 07/18/17 [facility] | | 02/21/14 [facility] | | | | NM Bone Scan 07/20/17 [facility] | | 12/17/16 [facility] | | 07/18/14 [facility] | | 02/21/14 [facility] | + + + + + | Depression | 12/12/2013 | + + + | Elevated PSA | 12/12/2013 | + + + | HTN (hypertension) | 11/12/2013 | + + + | Alopecia | 11/12/2013 | + + + | Stress reaction | 11/12/2013 | + + + | Nicotine addiction | 11/12/2013 | + + + | Essential hypertension, benign | 05/06/2011 | + + + + + | Overview: Last Assessment & Plan: Patient appears to be very | | well controlled on his medication regimen of hydrochlorothiazide | | 25 mg daily, atenolol 50 mg daily and losartan 100 mg daily. He | | will continue these medications, plan on rechecking blood | | pressure in 6 months.Last Assessment & Plan: Encouraged patient | | to be compliant with his medications. Recheck in 1 month.Often | | noncompliant with medsLast Assessment & Plan: When compliant with | | his medications, normotensive. Patient admits today that | | previously not his blood pressure medications when he came into | | clinic, today's on his blood pressure medications and significant | | improvement in his blood pressure reading. I encouraged | | compliance. | + + + + + | Disorder of lipoid metabolism | 04/08/2011 | + + + + + | Overview: Overview: | | goal LDL 70- 100 | | | | Dx Name changed by system update on 07/08/2017 | + + + + + | History of substance abuse | 03/18/2011 | + + + + + | Overview: Overview: meth, last reported use lcohol | | useLast Assessment & Plan: I congratulated patient on his | | abstinence from alcohol use for the last 3 months. Patient was | | able to me with Brandyn the behavior health specialist today after | | visit as well. | |Last Assessment & Plan: | |I congratulated patient on his abstinence from alcohol use for the last 3 months. Patient was able to me with Brandyn the behavior health specialist today after visit as well. | + + + + + | Tobacco use disorder | 03/18/2011 | + + + + + | Overview: Last Assessment & Plan: Patient reports that he | | thinks he is getting close to approach the topic of smoking | | cessation. He reports that he has been talking with some friends | | who have been quitting smoking and he is considering this. He | | would like to discuss this further at next visit in about 1 | | month. He met with Brandyn the behavioral health recruiting operations consultant to | | discuss in further detail today. | + + + + + | Cerebral artery occlusion with cerebral infarction | 03/18/2011 | + + + + + | Overview: Overview: | | right suninsular lacunar infarct 02/2011 | | | | Some level of decreased cognition. | + + + +---+ | NAHUN (obstructive sleep apnea) | | + +---+ | Organic insomnia | | + +---+ | Periodic limb movements of sleep | | + +---+ | REM sleep behavior disorder | | + +---+ Immunizations + + + + | Name | Administration Dates | Next Due | + + + + | INFLUENZA PF | 08/03/2014 | | | QUAD(PED/ADOL/ADULT) | | | | ,PSKT or VIAL | | | + + + + | INFLUENZA PF | 05/23/2015 | | | TRIVALENT(PED/ADOL/A | | | | DULT), PSKT | | | + + + + | INFLUENZA QUADR | 06/08/2019, 06/20/2018, 06/13/2017, | | | W/PRES | 06/25/2015 | | | (PED/ADOL/ADULT) | | | | MULTIDOSE | | | + + + + | PNEUMOCOCCAL | 08/02/2017 | | | POLYSACCHARIDE | | | | 23-VALENT (PPSV23) | | | + + + + | PNEUMOCOCCAL, | 08/02/2017 | | | UNSPECIFIED | | | | FORMULATION | | | + + + + | TDAP, (ADOL/ADULT) | 02/09/2015 | | + + + + | VARICELLA, 2 DOSE | 06/14/2017 | | | (VARIVAX) | | | + + + + Family History + + +---------+ + | Medical History | Relation | Name | Comments | + + +---------+ + | High blood pressure | Brother | | | + + +---------+ + | High blood pressure | Brother | | | + + +---------+ + | No known problems | Brother | Servando | | | | | Yvette | | + + +---------+ + | High blood pressure | Father | | | + + +---------+ + | Multiple sclerosis | Father | | | + + +---------+ + | No known problems | Maternal | | | | | Grandfath | | | | | er | | | + + +---------+ + | No known problems | Maternal | | | | | Grandmoth | | | | | er | | | + + +---------+ + | Breast cancer | Mother | | | + + +---------+ + | Cervical cancer | Mother | | | + + +---------+ + | Alcohol abuse | Other | | | + + +---------+ + | Arthritis | Other | | | + + +---------+ + | Heart attack | Other | | | + + +---------+ + | Cancer | Paternal | | | | | Grandfath | | | | | er | | | + + +---------+ + | No known problems | Paternal | | | | | Grandmoth | | | | | er | | | + + +---------+ + | Breast cancer | Sister | | | + + +---------+ + | Lymphoma | Sister | | Recurrent | + + +---------+ + | No known problems | Sister | | | + + +---------+ + | Early | Son | | | + + +---------+ + | No known problems | Son | | | + + +---------+ + | Prostate cancer | Neg Hx | | | + + +---------+ + + +---------+ + + | Relation | Name | Status | Comments | + +---------+ + + | Brother | | Alive | snore | + +---------+ + + | Brother | | Alive | snore | + +---------+ + + | Brother | Servando | Alive | | | | Yvette | | | + +---------+ + + | Father | | | MS | | | | (Age | | | | | 64) | | + +---------+ + + | Maternal Grandfather | | | | + +---------+ + + | Maternal Grandmother | | | | + +---------+ + + | Mother | | | Cervical cancer | | | | (Age | | | | | 63) | | + +---------+ + + | Other | | | | + +---------+ + + | Paternal Grandfather | | | | + +---------+ + + | Paternal Grandmother | | | | + +---------+ + + | Sister | | | lymphoma and breast cancer | | | | (Age | | | | | 54) | | + +---------+ + + | Sister | | Alive | | + +---------+ + + | Son | | | drowning accident | | | | (Age | | | | | 3) | | + +---------+ + + | Son | | Alive | | + +---------+ + + Social History + + + [...] | | + +---+---+---+ + + | Tobacco Cessation: Ready to Quit: Yes; Counseling Given: Yes | + + + + +---------+ + | Alcohol Use [...] on file | | + + + Last Filed Vital Signs + + + + + | Vital Sign | Reading | Time Taken | Comments | + + + + + | Blood Pressure | 188/110 | 11/07/2019 8:06 AM | | | | | PST | | + + + + + | Pulse | 108 | 11/07/2019 8:06 AM | | | | | PST | | + + + + + | Temperature | 37.2 C (99 F) | 05/11/2019 8:00 AM | | | | | PDT | | + + + + + | Respiratory Rate | 16 | 11/07/2019 8:06 AM | | | | | PST | | + + + + + | Oxygen Saturation | 97% | 05/29/2019 9:31 AM | | | | | PDT | | + + + + + | Inhaled Oxygen | - | - | | | Concentration | | | | + + + + + | Weight | 89.1 kg (196 lb 6.9 | 11/07/2019 8:06 AM | | | | oz) | PST | | + + + + + | Height | 175.3 cm (5' 9") | 11/07/2019 8:06 AM | | | | | PST | | + + + + + | Body Mass Index | 29.01 | 11/07/2019 8:06 AM | | | | | PST | | + + + + + Plan of Treatment + + + + + | Health Maintenance | Due Date | Last | Comments | | | | Done | | + + + + + | Hepatitis C | | | | | Screening | 4 | | | + + + + + | Vaccine: | | 08/02/20 | | | Pneumococcal 19-64 | 0 | 17, | | | (1 of 3 - PCV13) | | 08/02/20 | | | | | 17 | | + + + + + | Adult Annual | | | | | Wellness Visit | 5 | | | + + + + + | Statin Therapy | | | | | (optimal intensity) | 5 | | | + + + + + | Vaccine: Zoster (1 | | | | | of 2) | 7 | | | + + + + + | Vaccine: Influenza | | 06/08/20 | | | (#1) | 0 | 19, | | | | | 06/20/20 | | | | | 18, | | | | | 06/13/20 | | | | | 17, | | | | | Addition | | | | | al | | | | | history | | | | | exists | | + + + + + | Med Mgmt: Cr | | 11/05/19 | | | | 1 | 20, | | | | | 05/07/20 | | | | | 19, | | | | | 05/04/20 | | | | | 19, | | | | | Addition | | | | | al | | | | | history | | | | | exists | | + + + + + | Med Mgmt: K | | 11/05/19 | | | | 1 | 20, | | | | | 05/07/20 | | | | | 19, | | | | | 05/04/20 | | | | | 19, | | | | | Addition | | | | | al | | | | | history | | | | | exists | | + + + + + | Med Mgmt: Na | | 11/05/19 | | | | 1 | 20, | | | | | 05/07/20 | | | | | 19, | | | | | 05/04/20 | | | | | 19, | | | | | Addition | | | | | al | | | | | history | | | | | exists | | + + + + + | Med Mgmt: eGFR | | 11/05/19 | | | | 1 | 20, | | | | | 05/07/20 | | | | | 19, | | | | | 05/04/20 | | | | | 19, | | | | | Addition | | | | | al | | | | | history | | | | | exists | | + + + + + | Medication | | 11/05/19 | | | Management | 1 | 20 | | + + + + + | Vaccine: | | 02/10/20 | | | Dtap/Tdap/Td (2 - | 5 | 15 | | | Td) | | | | + + + + + | Colorectal Cancer | | 06/10/20 | | | Screening | 7 | 17, | | | (Colonoscopy) | | 06/10/20 | | | | | 17 | | + + + + + Results Not on filefrom Last 3 Months Insurance + +--------+ +--------+ +---------+--------+ | Payer | Benefi | Subscriber | Effect | Phone | Address | Type | | | t Plan | ID | jillian | | | | | | / | | Dates | | | | | | Group | | | | | | + +--------+ +--------+ +---------+--------+ | [email or web address] | SAIF | [id number] | | [phone] | | Indemn | | | WC | | 014-Pr | 5 | | ity | | | | | esent | | | | + +--------+ +--------+ +---------+--------+ | MEDICARE | MEDICA | [id number] | 03/26/20 | [phone] | | Medica | | | RE | | 18-Pre | 5 | | re | | | PART A | | sent | | | | | | AND B | | | | | | + +--------+ +--------+ +---------+--------+ + +--------+ +--------+ + + | Guarantor Name | Accoun | Relation to | Date | Phone | Billing Address | | | t Type | Patient | of | | | | | | | | | | + +--------+ +--------+ + + | Mani Garcia | Person | Self | [birth year] | NEED ADDRESS | | | al/Fam | | 1964 | [id number] | [facility] [place] | | | karolina | | | [place] ([place] | [phone] | + +--------+ +--------+ + + | Mani Garcia | Person | Self | [birth year] | | NEED ADDRESS | | | al/Fam | | 1964 | | [facility] [place] | | | [place]ina | | | [place] ([place] | [phone] | + +--------+ +--------+ + + Advance Directives + + + + + | Type | Date Recorded | Patient | Explanation | | | | Ell Teacher | | + + + + + | Power of | | | | | Reproduction Technician | | | | + + + + + | Advance | 04/14/2015 10:16 | | | | Directive | AM | | | + + + + + + + + + + | Code Status | Date | Date | Comments | | | Activated | Inactivated | | + + + + + | Full Code | 05/08/2019 | 05/11/2019 | | | | 2:47 PM | 1:19 PM | | + + + + + + + + +---+ | | | | | + + + +---+ | Full Code | 03/10/2018 | 03/10/2018 | | | | 1:27 PM | 3:51 PM | | + + + +---+
--- OUTSIDE RECORDS SUMMARY | ~2020-06-06 | XMS | Encounter Summary ---
Demographics + + + | Address | NEED ADDRESS | | | [place] [address] | + + + | Home Phone [...] + + + | Author | [facility] | | | and [place] | + + + | Organization | [facility] | | | and [...] + | Hector Garcia | ECON | [place] [address] | | + + + + + Care Team Providers + +------+ + | Care Motor Scooter Mechanic Name | Role | Phone | + [...] (HCC) | [address] | [address] | | | | | Procedures | [address] [place] | [place], | | | | | [place] Bone | [place], [place] | [place] | | | | | Scan Whole | [address] | [address] | | | | | Body [place] | Phone: | Phone: | | | | | BONE | [phone] | [phone] | | | | | IMAGING, | Fax: | Fax: | | | | | WHOLE BODY | [phone] | [phone] | +--------+--------+ + + + + Reason for Visit Diagnostic/Screening (Routine) +--------+--------+ + + + + | Status | Reason | Specialty | Diagnoses / | Referred By | Referred To | | | | | Procedures | Contact | Contact | +--------+--------+ + + + + | Closed | | Radiology | Diagnoses | Shruthi | Sathishm Nuclear | | | | | Prostate | Zeeshan Powell MD | Medicine | | | | | cancer ([facility]) | [address] | [address] | | | | | Procedures | [address] [place] | [place], | | | | | [place] Bone | [place], [place] | [place] | | | | | Scan Whole | [address] | [address] | | | | | Body [place] | Phone: | Phone: | | | | | BONE | [phone] | [phone] | | | | | IMAGING, | Fax: | Fax: | | | | | WHOLE BODY | [phone] | [phone] | +--------+--------+ + + + + Encounter Details +--------+ + + + + | Date | Type | Department | Care Team | Description | +--------+ + + + + | 11/15/ | Hospital | [facility] | Zeeshan Hawkins, | Prostate cancer | | 2020 | Encounter | MED CTR NUCLEAR | [address] | (HCC) | | | | MEDICINE [address] | [place], [place] | | | | | [address] [place], | [address] | | | | | [place] [address] | | | | | | [phone] | | | +--------+ + + + [...] | technetium TC-99M medronate | Given | 11/15/19 | 25.9 | | | | (MDP) injection 25 millicurie 25 | | 20 8:59 | millicur | | | | millicurie, Intravenous, ONCE | | AM PST | ies | | | | PRN, Other, Starting Erma 11/15/19 | | | | | | | at 0859, For 1 dose, Nuclear | | | | | | | Medicine | | | | | | + +--------+ + +------+------+ +---+---+ | | | +---+---+ documented in this encounter"
--- OUTSIDE RECORDS SUMMARY | ~2020-06-06 | XMS | Encounter Summary ---
Demographics + + + | Address | NEED ADDRESS | | | [place] [address] | + + + | Home Phone | | + + + | Preferred Language | Unknown | + + + | Marital Status | Single | + + + | Yazdanism Affiliation | Unknown | + + + | Race | White | + + + | Ethnic Group | Not or | + + + Author + + + | Author | [facility] | | | and [place] | + + + | Organization | [facility] | | | [...] Hector Garcia | ECON | [place] [address] | | + + + + + Care Team Providers + +------+ + | Care Motor Equipment Lieutenant Name | Role | Phone | + +------+ + | Aryan Grossman MD | PCP | | + +------+ + Reason for Visit + + + | Reason | Comments | + + + | Arm Injury | Right | + + + Encounter Details +--------+---------+ + + + | Date | Type | Department | Care Team | Description | +--------+---------+ + + + | 02/19/ | Office | [facility] | Theo Green | Right lateral | | 2013 | Visit | [facility] | MD Aryan Need | epicondylitis | | | | [facility] [address] | updated address | (Primary Dx); Place | | | | [address] [place] | | of occurrence, | | | | [facility] [place] | | industrial places | | | | [address] | | and premises | | | | [phone] | | | +--------+---------+ + + + [...] + + + | Blood Pressure | 172/112 | 02/19/2014 2:02 PM | | | | | PDT | | + + + + + | Pulse | 96 | 02/19/2014 2:02 PM | | | | | PDT | | + + + + + | Temperature | 37.1 C (98.7 F) | 02/19/2014 2:02 PM | | | | | PDT | | + + + + + | Respiratory Rate | 20 | 02/19/2014 2:02 PM | | | | | PDT | | + + + + + | Oxygen Saturation | - | - | | + + + + + | Inhaled Oxygen | - | - | | | Concentration | | | | + + + + + | Weight | 90.3 kg (199 lb) | 02/19/2014 2:02 PM | | | | | PDT | | + + + + + | Height | 175.3 cm (5' 9") | 02/19/2014 2:02 PM | | | | | PDT | | + + + + + | Body Mass Index | 29.39 | 02/19/2014 2:02 PM | | | | | PDT | | + + + + + documented in this encounter Progress Notes Theo Green MD - 02/19/2014 3:13 PM PDTEmployer: [employer] Guarantor: BEREKET Date of injury: 10/09/13 Claim number: [id number] Chief complaint: Right lateral epicondylitis, scheduled followup Subjective: 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 Inquired about what kept the injured worker from keeping followup appointments in his stay his answer was vague and seem to cent er around some unrelated medical concerns and a visit outside of our area with an ex- fo r possible relocation. Injured worker states that his lives in [place] and apparently there is a good medical facility available for the unrelated medical condition [facility]. He reports that he still having discomfort in his arm, in fact he is told they medical officer who took vital signs in his pain levels were 10 on 0-to-10 scale, ho wever our examination findings would suggest that this is perhaps a bit of an exaggeration f rom lung would be L. to be normal based on his exam findings. He reports no new circumstanc es to account for his current symptoms he's has been given a splint to wear for his conditio n which will be addressed in her noted below and the objective portion of this dictation. H e reports no new development of musculoskeletal or neurologic symptomatology. Past medical history, medications, allergies reviewed Review of systems: As per HPI Objective: Vital signs as noted, nursing notes reviewed. Jzmnfoc-kzjz-ibfnqzeld, well-nourished, in no apparent distress, pleasant cooperative. Extremities: Focused exam of the right upper extremity shows that he has a tennis elbow bra ce on, except he's wearing it in the him proper here he overlying the elbow joint itself rat her than the proximal forearm this was relocated to the proper position and is advised on ma intaining the splint in this position for her to be effective he describes discomfort with r brigitte of motion in the elbow but is able to fully extend the elbow with minimal discomfort we were able to palpate around the lateral epicondyle and while he describes discomfort he did not have any acute tenderness or pain behavior or withdrawal reaction and he had a negative provocative test with an extended elbow extended wrist against resistance. He had good di stal neural circulatory response. Imaging/diagnostics: None indicated this visit Pending interventions: Continue conservative management, we discussed the importance of a good trial of conservati ve treatment for at least a two-week period of time prior to consideration for cortisone inj ection. Assessment: 1. Right lateral epicondylitis, persistent Plan: Injured worker is advised on proper use of the splint is also advised of the benefits of using frequent cold pack applications and he can tolerate an anti-inflammatory medicatio n taking this on prescribed basis such as ibuprofen 600 mg 3 times a day. He is to take NSA ID medications with food and stop when necessary GI upset. Recheck in 2 weeks. Injured wor ker states he might be moving to [place] prior to that time at which case he is advised to f ind a provider who is proficient in worker's compensation problems with an office staff will be able to contact the [facility] workers compensation bureau to determine eligibility for furt her treatment. He voiced understanding and agreement. E: Regular work R: No specific restrictions given minimal objective findings on examination this date. Permanent impairment is not determined at this time but is not deemed a likely consequence of this injury based on current clinical findings. Not yet at [facility]. documented in t his encounter Miscellaneous Notes Plan of Care - ONERIC SCAN WAMT - 02/19/2014 12:00 AM PDT documented in this encounter Plan of Treatment Not on filedocumented as of this encounter Visit Diagnoses + + | Diagnosis | + + | Right lateral epicondylitis - Primary Lateral epicondylitis of elbow | + + | Place of occurrence, industrial places and premises | + + documented in this encounter
--- OUTSIDE RECORDS SUMMARY | ~2020-06-06 | XMS | Encounter Summary ---
Demographics + + + | Address | NEED ADDRESS | | | [place] [address] | + + + | Home Phone | | + + + | Preferred Language | Unknown | + + + | Marital Status | Single | + + + | Jain Affiliation | Unknown | + + + [...] Hector Garcia | ECON | [place] [address] | | + + + + + Care Team Providers + +------+ + | Care Senior Medical Billing Specialist Name | Role | Phone | + +------+ + | Aryan Grossman MD | PCP | | + +------+ + Encounter Details +--------+ + + + + | Date | Type | Department | Care Team | Description | +--------+ + + + + | 05/30/ | Abstract | [facility] | Aryan Grossman, | | | 2013 | | [facility] | [address] | | | | | [address] | [address] [place], | | | | | [place] | [place] [address] | | | | | [address] | [phone] | | | | | [phone] | | | +--------+ + + + [...] | + +--------+ + + + | EXTERNAL LAB: [facility], | Routin | 02/19/2014 | | Results for this | | SCREEN | e | | | procedure are in the | | | | | | results section. | + +--------+ + + + documented in this encounter Results External Lab: PSA, Screen (02/19/2014) + +-------+ + + + | Component | Value | Ref Range | Performed | Pathologist | | | | | At | Signature | + +-------+ + + + | PSA, | 86.19 | | | | | External | | | | | + +-------+ + + + + + | Specimen | + + | Blood specimen | | (specimen) | + + documented in this encounter Visit Diagnoses Not on filedocumented in this encounter"
--- OUTSIDE RECORDS SUMMARY | ~2020-06-06 | XMS | Encounter Summary ---
Demographics + + + | Address | NEED ADDRESS | | | [place] [address] | + + + | Home Phone | | + + + | Preferred Language | Unknown | + + + | Marital Status | Single | + + + | Jainism Affiliation | Unknown | + + + | Race | White | + + + | Ethnic Group | Not or | + + + Author + + + | Author | [facility] | | | and [place] | + + + | Organization | [facility] | | | and [...] Hector Garcia | ECON | [place] [address] | | + + + + + Care Team Providers + +------+ + | Care Job Printer Apprentice Name | Role | Phone | + +------+ + | Aryan Grossman MD | PCP | | + +------+ + Encounter Details +--------+ + + + + | Date | Type | Department | Care Team | Description | +--------+ + + + + | 08/25/ | Hospital | [facility] | Aryan Grossman, | Prostate cancer | | 2015 | Encounter | MED CTR LABORATORY | [address] | ([facility]); Essential | | | | [address] [place] | [address] [place], | hypertension | | | | [place], [place] | [place] [address] | | | | | [address] | [phone] | | | | | [phone] | | | +--------+ + + + [...] + + + +---------+ + + | ALPRAZolam (XANAX) | Take 1 tablet by | 5 | 0 | 05/14/20 | | | 0.25 mg | mouth Twice daily | tablet | | 15 | 6 | | tabletIndications: | as needed for | | | | | | Anxiety | Anxiety. | | | | | + + [...] + +---------+ + + | lisinopril | One po qd | 90 | 1 | 01/02/20 | | | (PRINIVIL, ZESTRIL) | | tablet | | 15 | 6 | | 20 mg | | | | | | | tabletIndications: | | | | | | | Essential | | | | | | | hypertension | | | | | | + + + +---------+ + + | losartan (COZAAR) | Take 1 tablet by | 90 | 0 | 05/14/20 | | | 50 mg | mouth Daily. | tablet | | 15 | 6 | | tabletIndications: | | | | | | | Essential | | | | | | | hypertension | | | | | | + + + +---------+ + + | naproxen | Take 1 tablet by | 30 | 0 | 05/14/20 | | | (NAPROSYN) 500 mg | mouth 2 times daily | tablet | | 15 | 6 | | tabletIndications: | (with breakfast & | | | | | | Sprain of right | dinner). | | | | | | elbow, initial | | | | | | | encounter, Place of | | | | | | | occurrence, | | | | | | | industrial places | | | | | | | and premises | | | | | | + + + +---------+ + + | sertraline | One po qd | 90 | 1 | 06/25/20 | | | (ZOLOFT) 100 mg | | tablet | | 15 | 6 | | tabletIndications: | | | | | | | Depression | | | | | | + + + +---------+ + + | zolpidem (AMBIEN) | Take 1 tablet by | 30 | 0 | 08/25/20 | | | 10 mg | mouth nightly as | tablet | | 15 | 5 | | tabletIndications: | needed for Sleep. | | | | | | Insomnia, | | | | | | | unspecified insomnia | | | | | | + + + +---------+ + + documented as of this encounter Plan of Treatment Not on filedocumented as of this encounter Procedures + +--------+ + + + | Procedure Name | Priori | Date/Time | Associated Diagnosis | Comments | | | ty | | | | + +--------+ + + + | CBC WITH | Routin | 08/25/2015 | Essential | Results for this | | DIFFERENTIAL | e | 2:24 PM | hypertension | procedure are in the | | | | PST | | results section. | + +--------+ + + + | PSA, DIAGNOSTIC | Routin | 08/25/2015 | Prostate cancer | Results for this | | | e | 2:24 PM | (HCC) | procedure are in the | | | | PST | | results section. | + +--------+ + + + | COMPREHENSIVE | Routin | 08/25/2015 | Essential | Results for this | | METABOLIC PANEL | e | 2:24 PM | hypertension | procedure are in the | | | | PST | | results section. | + +--------+ + + + documented in this encounter Results CBC with Differential (08/25/2015 [...] | | | | | g/dL | [facility] | | | | | | MEDICAL [...] | | Lymphocytes | | K/uL | [facility] | | | | | | MEDICAL | | | | | | CENTER - | | | | | | LABORATORY | | + +-------+ + + + | Absolute | 0.60 | 0.00 - 1.00 | [facility] | | | Monocytes | | K/uL | [facility] | [...] | 0.10 | 0.00 - 0.10 | [facility] | | | Basophils | | K/uL | [facility] | | | | | [...] + + | [facility] | [address] | [place] | [phone] | | [facility] | | [address] | | | - LABORATORY | | [...] (H) | 7 - 18 mg/dL | [facility] | | | | | | [facility] | | | | | | MEDICAL | | | | | | CENTER - | | | | | | LABORATORY | | + + + + + + | Creatinine | 0.85 | 0.60 - 1.30 | [facility] | | | | | mg/dL | [facility] | | | | | | MEDICAL | | | | | | CENTER - | | | | | | LABORATORY | | + + + + + + | eGFR, | >60Comment: GLOMERULAR | >=60 | [facility] | | | non- | FILTRATION | mL/min/1.73m2 | [facility] | | | [place] | RATE,ESTIMATED | | MEDICAL | | | | mL/min/1.08v1Eara than | | CENTER - | | [...] [address] | [place] | [phone] | | [facility] | | [address] | | | - LABORATORY | | | | + + + + + PSA, Diagnostic (08/25/2015 2:24 PM PST) + +-------+ + + + | Component | Value | Ref Range | Performed | Pathologist | | | | | At | Signature | + +-------+ + + + | PSA | 3.48 | <=4.00 ng/mL | [facility] | | | | | [...] [address] | [place] | [phone] | | [facility] | | [address] | | | - LABORATORY | | | | + + + + + documented in this encounter Visit Diagnoses + + | Diagnosis | + + | Prostate cancer (HCC) Malignant neoplasm of prostate | + + | Essential hypertension Unspecified essential hypertension | + + documented in this encounter"
--- OUTSIDE RECORDS SUMMARY | ~2020-06-06 | XMS | Encounter Summary ---
Demographics + + + | Address | NEED ADDRESS | | | [place] [address] | + + + | Home Phone | | + + + | Preferred Language | Unknown | + + + | Marital Status | Single | + + + | Mormon Affiliation | Unknown | + + + [...] Hector Garcia | ECON | [place] [address] | | + + + + + Care Team Providers + +------+ + | Care Community Relations Advisor Name | Role | Phone | + +------+ + PCP | Unavailable | + +------+ + Encounter Details +--------+ + + + + | Date | Type | Department | Care Team | Description | +--------+ + + + + | 06/29/ | Hospital | [facility] | | | | 1993 | Encounter | MED CTR EMERGENCY | | | | | | CENTER [address] | | | | | | [place], [place] | | | | | | [address] | | | | | | [phone] | | | +--------+ + + + [...]
--- OUTSIDE RECORDS SUMMARY | ~2020-06-06 | XMS | Encounter Summary ---
Demographics + + + | Address | NEED ADDRESS | | | [place] [address] | + + + | Home Phone | | + + + | Preferred Language | Unknown | + + + | Marital Status | Single | + + + | Yazidism Affiliation | Unknown | + + + | Race | White | + + + | Ethnic Group | Not or | + + + Author + + + | Author | [facility] | | | and [place] | + + + | Organization | [facility] | | [...] + | Hector Garcia | ECON | [place] [address] | | + + + + + Care Team Providers + +------+ + | Care Industrial Welder Name | Role | Phone | + [...] | | | | | | | [place] [facility]ISE | | | | | | [...] Description | +--------+---------+ + + + | 03/10/ | Surgery | [facility] | R[facility]to [facility], | Left Carpal Tunnel | | 2018 | | MED CTR OR INTRA OP | MD [address] | Release | | | | [address] | [place], [place] | | | | | [place], [place] | [address] | | | | | [address] | | | | | | [phone] | | | +--------+---------+ + + + [...] Discharge Instructions Instructions Vivienne Reza RN - 06/15/2018 Elevated and Wiggle fingers frequently Discharge Instructions [...] you are at home. Home care Don't radiation monitor objects tightly or lifting with your affected [...] your wrist to reduce swelling for the [id number]. Leave the ice pack on [id number] nutes; then take it off [id number]. Repeat as needed. Keep your arm elevated [...] swelling of the incision Date Last Reviewed: 08/10/[id number] [employer]. [address] [place] [id number]. All [facility] ts reserved. This information is not [...] the evening as | | 0 | //20 | | | (ELAVIL) 10 mg | needed | | | 17 | | | tablet | | | | | | + + + +---------+ + + | | Take 50 mg by mouth | | 0 | / | | | hydroCHLOROthiazide | Daily. 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 Review of Systems Eyes: [] Double vision [...] +---+--------+ documented in this encounter Visit Diagnoses Not on filedocumented in this encounter Administered Medications + +--------+---------+------+------+------+ [...] ONCE PRN, Wheezing, | | | Starting 03/10/18 at 1228, | | | For 1 dose, Pre-op | | + +---+ | | | + +---+ | albuterol-ipratropium (DUONEB) | | | 2.5-0.5 mg/3 mL nebulizer | | | solution 3 mL 3 mL, | | | Nebulization, ONCE PRN, Wheezing, | | | Shortness of Breath, Starting | | | Tue03/10/18 at 1327, For 1 dose, | | | Recovery/Phase I | | + +---+ | | | + +---+ | ceFAZolin (ANCEF, KEFZOL) 100 | | | mg/mL IV syringe 1 g 1 g, | | | Intravenous, Administer over 30 | | | Minutes, Prior to Incision, | | | Starting Tue03/10/18 at 1228, For | | | 1 [...] MIN PRN, Pain, Starting | | | 03/10/18 at 1327, Maximum | | | total [...] | mL/hr | | | CONTINUOUS, Starting 03/10/18 | | PM PDT | | | | | at 1245, TKO., Pre-op | | | | | | + +---------+ +---+-------+---+ +---+---+ | | | +---+---+ + +-------+ +--------+---+ + | lidocaine 1% injection PRN, | Given | 03/10/20 | 10 mLs | | Surgical | | Starting 03/10/18 at 1306, | | 18 1:06 | | | Site | | Intra-op | | PM PDT | | | | + +-------+ +--------+---+ + + +---+ | | | + +---+ [...] +---+ | | | + +---+ + +-------+ +--------+---+ + | ropivacaine (NAROPIN) 2 mg/mL | Given | 03/10/20 | 20 mLs | | Surgical | | (0.2%) injection PRN, Starting | | 18 1:06 | | | Site | | 03/10/18 at 1306, Intra-op | | PM PDT | | | | + +-------+ +--------+---+ + +---+---+ | | | +---+---+ documented in this encounter
--- OUTSIDE RECORDS SUMMARY | ~2020-06-06 | XMS | Encounter Summary ---
Demographics + + + | Address | NEED ADDRESS | | | [place] [address] | + + + | Home Phone | | + + + | Preferred Language | Unknown | + + + | Marital Status | Single | + + + | Rastafarian Affiliation | Unknown | + + + | Race | White | + + + | Ethnic Group | Not or | + + + Author + + + | Author | [facility] | | | and [place] | + + + | Organization | [facility] | | [...] + | Hector Garcia | ECON | [place] [address] | | + + + + + Care Team Providers + +------+ + | Care Skip Miner Name | Role | Phone | + [...] | | | | intervertebr | | [address] Phone: | | | | | al disc | | [phone] | | | | | 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 | | [phone] | | | | | Muscle | | | | | | | wasting and | | | | | | | atrophy, | | | | | | | NEC, unsp | | | | | | | thigh | | | | | | | Procedures | | | | | | | [place] LAM[place] | | | | | | [...] | | | | | | [place] | | | | | | | [...] | +--------+ + + + + | 05/07/ | Preadmit | [facility] | [place] | Preoperative | | 2019 | Visit | [facility] | MD Dion [address] | clearance (Primary | | | | CLINIC [address] | [address] [place] | Dx); Essential | | | | [place], [place] | [place] [address] | hypertension; | | | | [address] | [phone] | Cervical stenosis of | | | | [phone] | | spine; Elevated | | | | | | PSA; Prostate cancer | | | | | | (HCC); Disorder of | | | | | | lipoid metabolism; | | | | | | Cerebral artery | | | | | | occlusion with | | | | | | cerebral infarction | | | | | | (HCC); Spinal | | | | | | stenosis of lumbar | | | | | | region with | | | | | | neurogenic | | | | | | claudication | +--------+ + + + + Social [...] + +--------+ + + + | XR CHEST PA AND | Routin | 05/07/2019 | Essential | Results for this | | LATERAL | e | 11:37 AM | hypertension | procedure are in the | | | | PDT | Cervical stenosis of | results section. | | | | | spine Elevated PSA | | | | | | Prostate cancer | | | | | | ([facility]) Disorder of | | | | | | lipoid metabolism | | | | | | Cerebral artery | | | | | | occlusion with | | | | | | cerebral infarction | | | | | | ([facility]) Spinal | | | | | | stenosis of lumbar | | | | | | region with | | | | | | neurogenic | | | | | | claudication | | + +--------+ + + + | ECG 12 LEAD | Routin | 05/07/2019 | Essential | Results for this | | | e | 11:23 AM | hypertension | procedure are in the | | | | PDT | Cervical stenosis of | results section. | | | | | spine Elevated PSA | | | | | | Prostate cancer | | | | | | ([facility]) Disorder of | | | | | | lipoid metabolism | | | | | | Cerebral artery | | | | | | occlusion with | | | | | | cerebral infarction | | | | | | ([facility]) Spinal | | | | | | stenosis of lumbar | | | | | | region with | | | | | | neurogenic | | | | | | claudication | | + +--------+ + + + | CULTURE, MRSA | Routin | 05/07/2019 | Preoperative | Results for this | | | e | 11:23 AM | clearance | procedure are in the | | | | PDT | | results section. | + +--------+ + + + | CBC WITH | Routin | 05/07/2019 | Essential | Results for this | | DIFFERENTIAL | e | 11:23 AM | hypertension | procedure are in the | | | | PDT | Cervical stenosis of | results section. | | | | | spine Elevated PSA | | | | | | Prostate cancer | | | | | | (HCC) Disorder of | | | | | | lipoid metabolism | | | | | | Cerebral artery | | | | | | occlusion with | | | | | | cerebral infarction | | | | | | (HCC) Spinal | | | | | | stenosis of lumbar | | | | | | region with | | | | | | neurogenic | | | | | | claudication | | + +--------+ + + + | BASIC METABOLIC | Routin | 05/07/2019 | Essential | Results for this | | PANEL | e | 11:23 AM | hypertension | procedure are in the | | | | PDT | Cervical stenosis of | results section. | | | | | spine Elevated PSA | | | | | | Prostate cancer | | | | | | (HCC) Disorder of | | | | | | lipoid metabolism | | | | | | Cerebral artery | | | | | | occlusion with | | | | | | cerebral infarction | | | | | | (HCC) Spinal | | | | | | stenosis of lumbar | | | | | | region with | | | | | | neurogenic | | | | | | claudication | | + +--------+ + + + documented in this encounter Results XR Chest PA and Lateral (05/07/2019 11:37 AM PDT) + + | Specimen | + + | | + + + + + | Narrative | Performed At | + + + | EXAM: XR CHEST PA AND LATERAL dated 05/07/2019 11:22 AM HISTORY: | [facility] | | Pre-operative exam Comparison: 04/02/2019 TECHNIQUE: Frontal and | | | lateral views of the chest. FINDINGS: The lungs are | | | symmetrically aerated. They are clear. There are no pleural | | | effusions. There is no pneumothorax. The cardiac and mediastinal | | | contours are not enlarged. The visible osseous structures are | | | unremarkable. IMPRESSION - Negative two-view chest | | | radiograph. Dictated and Signed by: Antonio Waite MD | | | Electronically signed: 05/07/2019 12:37 PM | | + + + + + | Procedure Note | + + | Frank, Rad Results In - 05/07/2019 12:40 PM PDT EXAM: XR CHEST PA AND LATERAL dated | | 05/07/2019 11:22 AMHISTORY: Pre-operative examComparison: 04/02/2019TECHNIQUE: Frontal and | | lateral views of the chest.FINDINGS:The lungs are symmetrically aerated. They are | | clear. There are no pleuraleffusions. There is no pneumothorax. The cardiac and | | mediastinal contours arenot enlarged. The visible osseous structures are unremarkable. | | IMPRESSION -Negative two-view chest radiograph. Dictated and Signed by: Antonio Peterson | | MD Ravindra Electronically signed: 05/07/2019 12:37 PM | | | |FINDINGS: | |The lungs are symmetrically aerated. They are clear. There are no pleural | |effusions. There is no pneumothorax. The cardiac and mediastinal contours are | |not enlarged. The visible osseous structures are unremarkable. | | | |IMPRESSION - | | | |Negative two-view chest radiograph. | | | |Dictated and Signed by: Antonio Waite MD | | Electronically signed: 05/07/2019 12:37 PM | + + + +---------+ + + | Performing | Address | City/State/Zipcode | Phone Number | | Organization | | | | + +---------+ + + | [facility] | | | | + +---------+ + + ECG 12 lead (05/07/2019 11:23 AM PDT) + + + + + + | Component | Value | Ref Range | Performed | Pathologist | | | | | At | Signature | + + + + + + | VENTRICULAR | 88 | BPM | [facility] | | | RATE EKG | | | | | + + + + + + | ATRIAL RATE | 88 | BPM | [facility] | | + + + + + + | P-R | 164 | ms | [facility] | | | INTERVAL | | | | | + + + + + + | QRS | 98 | ms | [facility] | | | DURATION | | | | | + + + + + + | Q-T | 380 | ms | [facility] | | | INTERVAL | | | | | + + + + + + | Q-T | 459 | ms | [facility] | | | INTERVAL | | | | | | (CORRECTED) | | | | | + + + + + + | P WAVE AXIS | 46 | degrees | [facility] | | + + + + + + | QRS AXIS | 12 | degrees | [facility] | | + + + + + + | T AXIS | 28 | degrees | [facility] | | + + + + + + | INTERPRETAT | Normal sinus | | [facility] | | | ION TEXT | rhythmCannot rule out | | | | | | Inferior infarct , age | | | | | | undeterminedWhen | | | | | | compared with ECG of | | | | | | 03/06/2018Incomplete | | | | | | right bundle branch | | | | | | block is no longer | | | | | | presentCriteria for | | | | | | Lateral infarct are no | | | | | | longer presentT wave | | | | | | amplitude has increased | | | | | | in precordial | | | | | | leads:consider | | | | | | hyperkalemiaConfirmed by | | | | | | PENNY KRAUS MD ([id number]) | | | | | | on 05/08/2019 5:56:01 AM | | | | | | | | | | + + + + + + + + | Specimen | + + | | + + + + + | Narrative | Performed At | + + + | | | + + + + +---------+ + + | Performing | Address | City/State/Zipcode | Phone Number | | Organization | | | | + +---------+ + + | [facility] | | | | + +---------+ + + CBC with Differential (05/07/2019 11:23 AM PDT) + + + + + + | Component | Value | Ref Range | Performed | Pathologist | | | | | At | Signature | + + + + + + | White Blood | 11.9 (H) | 4.0 - 11.0 K/uL | [facility] | | | Cells | | | [facility] | | | | | | MEDICAL | | | | | | C[facility] - | | | | | | LABORATORY | | + + + + + + | Red Blood | 4.18 (L) | 4.30 - 5.70 | [facility] | | | Cells | | M/uL | [facility] | | | | | | MEDICAL | | | | | | CENTER - | | | | | | LABORATORY | | + + + + + + | Hemoglobin | 14.1 | 13.5 - 18.0 | [facility] | | | | | g/dL | [facility] | | | | | | MEDICAL | | | | | | CENTER - | | | | | | LABORATORY | | + + + + + + | Hematocrit | 41.8 | 40.0 - 51.0 % | [facility] | | | | | | [facility] | | | | | | [facility] | | | | | | C[facility] - | | | | | | LABORATORY | | + + + + + + | MCV | 100.0 | 83.0 - 101.0 fL | [facility] | | | | | | [facility] | | | | | | [facility]ICAL | | | | | | C[facility] - | | | | | | LABORATORY | | + + + + + + | MCH | 33.7 | 28.0 - 35.0 pg | [facility] | | | | | | [facility] | | | | | | MEDICAL | | | | | | CENTER - | | | | | | LABORATORY | | + + + + + + | MCHC | 33.7 | 32.0 - 36.0 | [facility] | | | | | g/dL | [facility] | | | | | | MEDICAL | | | | | | CENTER - | | | | | | LABORATORY | | + + + + + + | RDW-CV | 12.9 | <15.0 % | [facility] | | | | | | [facility] | | | | | | MEDICAL | | | | | | CENTER - | | | | | | LABORATORY | | + + + + + + | RDW-SD | 47.8 (H) | 35.1 - 46.3 fL | [facility] | | | | | | [facility] | | | | | | [facility]ICAL | | | | | | CENTER - | | | | | | LABORATORY | | + + + + + + | Platelet | 330 | 140 - 440 K/uL | [facility] | | | Count | | | [facility] | | | | | | MEDICAL | | | | | | CENTER - | | | | | | LABORATORY | | + + + + + + | MPV | 9.2 | 6.5 - 12.4 fL | [facility] | | | | | | [facility] | | | | | | MEDICAL | | | | | | CENTER - | | | | | | LABORATORY | | + + + + + + | % | 70.7 | 45.0 - 82.0 % | [facility] | | | Neutrophils | | | [facility] | | | | | | MEDICAL | | | | | | CENTER - | | | | | | LABORATORY | | + + + + + + | % | 22.1 | 20.0 - 45.0 % | [facility] | | | Lymphocytes | | | [facility] | | | | | | MEDICAL | | | | | | CENTER - | | | | | | LABORATORY | | + + + + + + | % Monocytes | 4.8 | 4.0 - 12.0 % | [facility] | | | | | | [facility] | | | | | | MEDICAL | | | | | | CENTER - | | | | | | LABORATORY | | + + + + + + | % | 1.4 | 0.0 - 5.0 % | [facility] [...] + + + | % Immature | 0.3 | 0.0 - 0.4 % | [facility] | | | Granulocyte | | | [facility] | | | s | | | MEDICAL | | | | | | CENTER - | | | | | | LABORATORY | | + + + + + + | Absolute | 8.42 | 1.80 - 8.50 | [facility] | | | Neutrophils | | K/uL | [facility] | | | | | | MEDICAL | | | | | | CENTER - | | | | | | LABORATORY | | + + + + + + | Absolute | 2.63 | 0.60 - 3.20 | [facility] | | | Lymphocytes | | K/uL | [facility] | | | | | | MEDICAL | | | | | | CENTER - | | | | | | LABORATORY | | + + + + + + | Absolute | 0.57 | 0.00 - 1.00 | [facility] | | | Monocytes | | K/uL | [facility] | | | | | | MEDICAL | | | | | | CENTER - | | | | | | LABORATORY | | + + + + + + | Absolute | 0.17 | 0.00 - 0.40 | [facility] | | | Eosinophils | | K/uL | [facility] | | | | | | MEDICAL | | | | | | CENTER - | | | | | | LABORATORY | | + + + + + + | Absolute | 0.08 | 0.00 - 0.10 | [facility] | | | Basophils | | K/uL | [facility] | | | | | | MEDICAL | | | | | | CENTER - | | | | | | LABORATORY | | + + + + + + | Absolute | 0.03 | 0.00 - 0.03 | [facility] | [...] | [facility] | | | | | WBCs | [facility] | | | | [...] [address] | [place] | [phone] | | [facility] | | [address] | | | - LABORATORY | | | | + + + + + Basic Metabolic Panel (05/07/2019 11:23 AM PDT) + + + + + + | Component | Value | Ref Range | Performed | Pathologist | | | | | At | Signature | + + + + + + | Na | 139 | 136 - 145 | [facility] | | | | | mmol/L | [facility] | | | | | | MEDICAL | | | | | | CENTER - | | | | | | LABORATORY | | + + + + + + | K | 4.0 | 3.4 - 5.1 | [facility] | | | | | mmol/L | [facility] | | | | | | MEDICAL | | | | | | CENTER - | | | | | | LABORATORY | | + + + + + + | Cl | 105 | 98 - 107 mmol/L | [facility] | | | | | | [facility] | | | | | | MEDICAL | | | | | | CENTER - | | | | | | LABORATORY | | + + + + + + | CO2 | 29 | 20 - 31 mmol/L | [facility] | | | | | | [facility] | | | | | | MEDICAL | | | | | | CENTER - | | | | | | LABORATORY | | + + + + + + | Anion Gap | 5 | 3 - 16 mmol/L | [facility] | | | | | | [facility] | | | | | | MEDICAL | | | | | | CENTER - | | | | | | LABORATORY | | + + + + + + | Glucose | 91 | 60 - 106 mg/dL | [facility] | | | | | | [facility] | | | | | | MEDICAL | | | | | | CENTER - | | | | | | LABORATORY | | + + + + + + | BUN | 20 | 9 - 23 mg/dL | [facility] | | | | | | [facility] | | | | | | MEDICAL | | | | | | CENTER - | | | | | | LABORATORY | | + + + + + + | Creatinine | 0.89 | 0.70 - 1.30 | [facility] | | | | | mg/dL | [facility] | | | | | | MEDICAL | | | | | | CENTER - | | | | | | LABORATORY | | + + + + + + | eGFR, | >60Comment: GLOMERULAR | >=60 | [facility] | | | non- | FILTRATION | mL/min/1.73m2 | [facility] | | | [place] | RATE,ESTIMATED | | MEDICAL | | | | mL/min/[id number] than | | CENTER - | | [...] + + + + | Calcium | 9.4 | 8.7 - 10.4 | [facility] | | | | | mg/dL | [facility] | | | | | | MEDICAL | | | | | | CENTER - | | | | | | LABORATORY | | + + + + + + | BUN/Creatin | 22.5 | | [facility] | | | ine [...] [address] | [place] | [phone] | | [facility] | | [address] | | | - LABORATORY | | | | + + + + + Culture, MRSA (05/07/2019 11:23 AM PDT) + + + + + + | Component | Value | Ref Range | Performed | Pathologist | | | | | At | Signature | + + + + + + | Culture | Negative for MRSA by | | [facility] | | | | chromogenic agar method | | [facility] | | | | | | MEDICAL | | | | | | CENTER - | | | | | | LABORATORY | | + + + + + + | Culture | 4+ Coagulase positive | | [facility] | | | | Staphylococcus | | [facility] | | | | | | MEDICAL | | | | | | CENTER - | | | | | | LABORATORY | | + + + + + + + + | Specimen | + + | Tissue - Both | | anterior nares (body | | structure) | + + + + + + + | Performing | Address | City/State/Zipcode | Phone Number | | Organization | | | | + + + + + | [facility] 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
--- OUTSIDE RECORDS SUMMARY | ~2020-06-06 | XMS | Encounter Summary ---
Demographics + + + | Address | [address] | | | [facility] [address] | + + + | Home Phone | | + + + | Preferred Language | Unknown | + + + | Marital Status | Single | + + + | Evangelical Affiliation | CHR | + + + | Race | White | + + + | Ethnic Group | Not or | + + + Author + + + | Author | [facility] | + + + | Organization | [facility] | + + + | Address | Unknown | + + + | Phone | Unavailable | + + + Support + + +---------+ + | Name | Relationship | Address | Phone | + + +---------+ + | Servando Boyer | ECON | Unknown | | + + +---------+ + Care Team Providers + +------+ + | Care Repack Room Worker Name | Role | Phone | + +------+ + | Aryan Grossman MD | PCP | | + +------+ + Reason for Visit + + + | Reason | Comments | + + + | Follow-up visit | 3 week follow up. | + + + Benefits Check (Routine) +--------+--------+ + + + + | Status | Reason | Specialty | Diagnoses / | Referred By | Referred To | | | | | Procedures | Contact | Contact | +--------+--------+ + + + + | Closed | | Urology | Diagnoses | Shrevtalat, | Dawson, | | | | | Lara | Simran Powell, | Simran A, | | | | | PSA | ACNP [address] | ACNP [address] | | | | | | [address] | [address] | | | | | | [facility] | [address] | | | | | | Rd | [place], [place] | | | | | | [place], [place] | [address] | | | | | | [address] | Phone: | | | | | | Phone: | [phone] | | | | | | [phone] | Fax: | | | | | | Fax: | [phone] | | | | | | [phone] | | +--------+--------+ + + + + Encounter Details +--------+---------+ + + + | Date | Type | Department | Care Team | Description | +--------+---------+ + + + | 12/31/ | Office | Urology at [facility] | Simran Osman, | Prostate cancer | | 2017 | Visit | [address] | ACNP [address] | ([facility]) (Primary Dx) | | | | [facility] | [facility] | | | | | and Healing, | [place], [place] | | | | | | [address] | | | | | Floor [place], [place] | [phone] | | | | | [address] | | | | | | [phone] | | | +--------+---------+ + + + [...] + + + | Blood Pressure | 165/109 | 12/31/2016 10:54 AM | ran out of BP | | | | PDT | medication | + + + + + | Pulse | 116 | 12/31/2016 10:54 AM | | | | | PDT | | + + + + + | Temperature | - | - | | + + + + + | Respiratory Rate | - | - | | + + + + + | Oxygen Saturation | 99% | 12/31/2016 10:54 AM | | | | | PDT | | + + + + + | Inhaled Oxygen | - | - | | | Concentration | | | | + + + + + | Weight | 88 kg (194 lb) | 12/31/2016 10:54 AM | | | | | PDT | | + + + + + | Height | - | - | | + + + + + | Body Mass Index | 28.64 | 08/01/2014 8:19 AM | | | | | PST | | + + + + + documented in this encounter Patient Instructions Patient Instructions Simran Osman ACNP - 12/31/2016 11:40 AM PDTIt was good to see yo u today: 1. Come back in 3 months for your next shot. 2. Please start the following: Calcium 1500 mg daily (in divided doses such as TUMS 500mg TID) and Vitamin D 1200 IU MAGDA Diaz Nurse Practitioner Urologic Oncology documented in this encounter Progress Notes Simran Osman ACNP - 12/31/2016 11:40 AM PDT UROLOGIC ONCOLOGY CLINIC Return Patient Evaluation CC: Biochemical Recurrence of Prostate Cancer HISTORY OF PRESENT ILLNESS: Mr. Mani Garcia is a 51 yo WM with a biochemical recurrence following prostatectomy for prostate cancer. He has a history of Mcallister 4+3, margin positive, +NAYELY, +SVI, [id number] (0/ 10 nodes) prostate cancer who underwent RRP with bilateral PLND on 08/01/[address] Columba Kohli. He is 2.5 years post-op. His pre-operative PSA was 86.19 ng/ml (02/20/14). He was on Casodex briefly prior to surgery. Leupron was recommended but he could nor afford it. A met astatic work-up pre-operatively was negative with bone scan and CT scan. He had significant lower urinary tract symptoms so surgery was favored over radiation.He was last seen in our d epartment 2 years ago. His first post-op PSA was 0.75 ng/ml on 10/01/14. He was recently seen by his PCP and found to have a PSA of 11.54 ng/ml (11/16/16). His most recent PSA results are noted below. His PSADT is 7 months. He was started on Casdoex on 12/10/16 and returns today for a leuprolide injection. He was s ent for metastatic work-up. Bone scan showed no evidence of metastatic disease and CT scan o f CAP showed evidence of recurrent or metastatic disease. He has moderate voiding symptoms with an AUA Symptom Score of 24/35. He has no incontinenc e and no gross hematuria. He has diminished sexual function with a MAURICIO score of 5/25. Prostate Cancer History: He was noted to have a diffusely firm and indurated prostate and a psa on 11/30/13 was 75.46. 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 Bone scan (02/21/14)and CT scan (02/21/14) were both negative. On 02/20/14, a repeat psa w as 86.19. He was initially planning XRT in [place], but he was uninsured. He instead started on Casodex. He has not had luperon secondary to cost with no insurance. He was noted to hav e significant lower urinary tract symptoms, and given his young age and symptoms, he is refe rred for prostatectomy. He had an AUA SS of 28. On 05/31/14 his psa was 28. HIs creatinine was 0.79. Oncopeptides lab: LLB 4+3 90%, LLM 4+3 95%, la 4+3, 96%, RLB 4+3 96%, RLM 4+3 95%, RA 3+4 96% PHYSICAL EXAM: BP 165/109[ran out of BP medication[ | Pulse 116 | Wt 88 kg (194 lb) | SpO2 99% | BMI 28.64 kg/(m^2) GEN: appears well, in NAD PSYCH: alert and oriented, affect appropriate SKIN: pink, warm and dry HEENT: nose/throat clear, no scleral icterus EXTREM: No edema NEURO: Non-focal LABS: Lab Results Component Value Date WBC 6.77 08/04/2014 PLT 200 08/04/2014 MCV 101.0 (H) 08/04/2014 RDW 46.4 (H) 08/04/2014 Lab Results Component Value Date NA 139 08/04/2014 K 4.3 08/04/2014 CL 107 08/04/2014 BICARB 26 08/04/2014 BUN 11 08/04/2014 CR 0.87 08/04/2014 GLU 86 08/04/2014 CA 8.3 (L) 08/04/2014 Outside PSA results: 11.54 ng/ml 11/16/16 3.48 ng/ml 08/25/15 1.74 ng/ml 04/02/15 0.86 ng/ml 12/19/14 Lab Results Lab Test Name Results Date/Time PSA 0.75 10/01/14 PSA 22.07 07/09/14 PATHOLOGY: SOURCE OF SPECIMEN:A Right pelvic lymph node SOURCE OF SPECIMEN:B Left pelvic lymph node SOURCE OF SPECIMEN:C Prostate Final Pathologic Diagnosis: A: Right pelvic lymph nodes, dissection: - Four lymph nodes, negative for malignancy (0/4) B: Left pelvic lymph nodes, dissection: - Six lymph nodes, negative for malignancy (0/6) C: Prostate, prostatectomy: - Prostatic adenocarcinoma, Elroy grade 4 + 3 = 7, involving bilateral lobes and seminal vesicles. bladder base, and apex - Single minute microscopic focus of carcinoma present at the left anterior inked margin (block #C9), other margins are negative for tumor - Extraprostatic extension present - Perineural invasion present - Angiolymphatic invasion present - Bilateral vasa deferentia, negative for malignancy - AJCC pathologic stage (7th edition): pT3b N0 Case seen by: Estela Addison M.D., Ph.D./Surgical Pathology Resident Donavan Velazquez M.D./Pathologist /zach Prostate Gland Cancer Synopsis Procedure: Radical prostatectomy Prostate Size: Weight: 44.7g Size: 4 x 4 x 3.5cm Lymph Node Sampling: Pelvic lymph node dissection Histologic Type: Adenocarcinoma (acinar, not otherwise specified) Histologic Grade: Primary Pattern Grade: 4 Secondary Pattern Grade: 3 Total Mcallister Score: 7 Tumor Quantitation: Percent of prostate involved by tumor: 60% Extraprostatic Extension: Present Seminal Vesicle Invasion: Present Bilateral Margins: Positive for invasive carcinoma Unifocal Anterior Treatment Effect on Carcinoma: Not identified Angiolymphatic Invasion: Present Perineural Invasion: Present AJCC Stage (7th Edition) (pTNM) Primary Tumor (pT): pT3b Regional Lymph Nodes (pN): pN0 Number of regional lymph nodes examined: 10 Distant Metastasis (pM): Not applicable Clinical History: The patient is a 49-year-old male with prostate cancer. IMAGING: I personally reviewed the images NUCLEAR MEDICINE WHOLE BODY BONE SCAN - 12/17/2016 CLINICAL HISTORY:prostate cancer with biochemical recurrence now with bone pain, assess for metastic disease COMPARISON:07/18/2014 FINDINGS: To obtain the study 23.7 mCi of technetium 99 labeled MDP is administered followed by delayed whole body scanning. Symmetric moderate increased activity in the acromioclavicular joints bilaterally and at the base of the thumb bilaterally. This has typical appearance of radiotracer distribution secondary to degenerative disease. It is similar to the comparison study. Mildly increased activity in the left knee and at L4-L5, also suggestive of degenerative disease. No other areas of increased radiotracer activity. Previously questioned area of increased radiotracer activity in the right acetabular region is not redemonstrated on this study. No photopenic areas to suggest lytic lesions. Soft tissue background and renal activity are within normal limits IMPRESSION - No scintigraphic evidence of osteoblastic metastatic disease. CT CHEST ABDOMEN PELVIS W CONTRAST - 12/17/2016 HISTORY: Prostate cancer with biochemical recurrence, now [...] 07/18/2014 that is likely to be benign. There is a stable 9 mm nodule of the right adrenal. IMPRESSION: Prostate Cancer: Biochemical recurrence of prostate cancer. Beyond the window of eligibilit y for salvage radiotherapy. No evidence of metastasis. Hormone naive. He is 2.5 years s/p RR P with BPLND for a GG 4+3 [id number] prostate cancer. Pre-operative PSA of 86.19 ng/ml. Metast atic work-up was negative pre-operatively. He has received no adjuvant or salvage therapy to date. His PSA was detectable immediately post-op and has been increasing since to a current level of 11.54 ng/ml (10/2016). His PSADT is 7 months. Metastatic work-up on 12/17/16 was negative. He has been on Casodex for 3 weeks. We agreed t o start androgen deprivation therapy (ADT) with a plan for 9 months of leuprolide treatment today. Androgen deprivation therapy: We discussed the potential for osteopenia/osteoporosis on ADT . I have recommended the following to increase bone health: 1500 mg of Calcium Carbonate (t o be divided in TID dosing), 2000 units of vitamin D per day, as well as daily weight bearin g exercise (walking, hiking, stair climbing, jumping jacks). A baseline DEXA scan and a 25 OH vitamin D level followed by yearly surveillance DEXA scans are recommended to monitor for vitamin D deficiency and osteoporosis while on ADT. We discussed that ADT promotes metabolic changes that are associated cardiovascular risk. He will need vigilant monitoring of his BP, blood glucose, and lipids with his PCP. In celina tion, secondary preventive measures should be pursued in men with a history of cardiovascula r disease on ADT, such as: rigorous lipid lowering, blood pressure control among hypertensiv es, and tight control of glucose levels among diabetics. He should stop smoking if he is a smoker. Daily exercise was encouraged with goal of 30 minutes a day. I also explained the side effects from ADT including hot flashes, fatigue, low libido, test icular atrophy, gynecomastia, and erectile dysfunction. PLAN: 1. Leuprolide 3 month depot today 2. Calcium 1500 mg daily (in divided doses such as TUMS 500mg TID) and Vitamin D 2000 IU d aily 3. Follow-up with PCP for monitoring and management of BP, blood glucose, and lipids 4. Baseline DEXA scan and 25 OH vitamin D level A total of more than 25 minutes was spent with the patient today, over 50% of which was spe nt in counseling and coordination of care. MAGDA Trotter Nurse Practitioner Urologic Oncology documented in thi s encounter Plan of Treatment Not on filedocumented as of this encounter Visit Diagnoses + + | Diagnosis | + + | Prostate cancer (HCC) - Primary Malignant neoplasm of prostate | + + documented in this encounter"
--- OUTSIDE RECORDS SUMMARY | ~2020-06-06 | XMS | Encounter Summary ---
Demographics + + + | Address | [address] | | | [place] [address] | + + + | Home Phone | | + + + | Preferred Language | Unknown | + + + | Marital Status | Single | + + + | Buddhism Affiliation | CHR | + + + | Race | White | + + + | Ethnic Group | Not or | + + + Author + + + | Author | [facility] | + + + | Organization | [facility] | + + + | Address | Unknown | + + + | Phone | Unavailable | + + + Support + + +---------+ + | Name | Relationship | Address | Phone | + + +---------+ + | Servando Boyer | ECON | Unknown | | + + +---------+ + Care Team Providers + +------+ + | Care Carry In Worker Name | Role | Phone | + +------+ + | Aryan Grossman MD | PCP | | + +------+ + Reason for Visit + +--------+ + | Reason | Onset | Comments | | | Date | | + +--------+ + | Prior Authorization | 01/12/ | Lavinia | | Request - Medication | 2017 | | + +--------+ + Encounter Details +--------+ + + + + | Date | Type | Department | Care Team | Description | +--------+ + + + + | 01/12/ | Telephone | [facility] at [facility] | Simran Osman, | Prior Authorization | | 2017 | | [address] | ACNP [address] | Request - Medication | | | | Mailcode: CH10U | [address] | (Lupron) | | | | [facility] | [place], [place] | | | | | and [facility], | [address] | | | | | [facility] | [phone] | | | | | Floor [place], [place] | | | | | | [address] | | | | | | [phone] | | | +--------+ + + + [...] this encounter Miscellaneous Notes Telephone Encounter - Papi Snyder - 01/12/2018 1:31 PM PDT Prior authorization for: Era pron (leuprolide acetate) 22.5mg every 3 months for 24 months. J Code: J9217 Injection CPT: 73504 ICD10: Prostate cancer C61 - - - - - - - - - - - - - - - - - - - - - - - - - - - - - - - - - - - - - - - - - - - - - - - - - - - - - - - - Insurer: Medicaid I called Julio and spoke with the customer operations manager Approved: Yes Julio. No PA needed for either code. Authorization reference #: [id number] Comment: None documented i n this encounter Plan of Treatment Not on filedocumented as of this encounter Visit Diagnoses Not on filedocumented in this encounter"
--- OUTSIDE RECORDS SUMMARY | ~2020-06-06 | XMS | Encounter Summary ---
Demographics + + + | Address | NEED ADDRESS | | | [place] [address] | + + + | Home Phone | | + + + | Preferred Language | Unknown | + + + | Marital Status | Single | + + + | Restorationism Affiliation | Unknown | + + + | Race | White | + + + | Ethnic Group | Not or | + + + Author + + + | Author | [facility] | | | and [place] | + + + | Organization | [facility] | | [...] Hector Garcia | ECON | [place] [address] | | + + + + + Care Team Providers + +------+ + | Care Metal Roofer Name | Role | Phone | + +------+ + | Aryan Grossman MD | PCP | | + +------+ + Encounter Details +--------+ + + + + | Date | Type | Department | Care Team | Description | +--------+ + + + + | 07/09/ | Abstract | [facility] [place] [facility] | Aryan Grossman, | | | 2013 | | MEDICINE [address] | [address] | | | | | [address] [place], | [address] [place], | | | | | [place] [address] | [place] [address] | | | | | [phone] | [phone] | | | | | | | [...] +--------+ + + + | EXTERNAL LAB: PSA | Routin | 05/31/2014 | | Results for this | | | e | | | procedure are in the | | | | | | results section. | + +--------+ + + + documented in this encounter Results External Lab: PSA (05/31/2014) + +-------+ + + + | Component | Value | Ref Range | Performed | Pathologist | | | | | At | Signature | + +-------+ + + + | PSA, | 20.94 | | | | | External | | | | | + +-------+ + + + documented in this encounter Visit Diagnoses Not on filedocumented in this encounter"
--- OUTSIDE RECORDS SUMMARY | ~2020-06-06 | XMS | Encounter Summary ---
Demographics + + + | Address | NEED ADDRESS | | | [place] [address] | + + + | Home Phone [...] Author + + + | Author | [facility] | | | and [place] | + + + | Organization | [facility] | | | [...] Hector Garcia | ECON | [place] [address] | | + + + + + Care Team Providers + +------+ + | Care Laborer [place] Name | Role | Phone | + +------+ + | Loi Frausto PA-C | PCP | | + +------+ + Reason for Visit +---------+ + | Reason | Comments | +---------+ + | Post Op | Post Op Carpal Tunnel Release DOS:03/10/2018 | +---------+ + Encounter Details +--------+---------+ + + + | Date | Type | Department | Care Team | Description | +--------+---------+ + + + | 03/31/ | Office | [facility] | Remberto Hurst, | Postop check | | 2018 | Visit | ORTHOPEDIC SURGERY | [address] | (Primary Dx) | | | | [address] | [place] | | | | | [place] | [address] | | | | | [address] | | | | | | [phone] | | | +--------+---------+ + + + [...] + + + + | Pulse | - | - | | + [...] + + + + | Weight | 91.2 kg (201 lb) | 03/31/2018 9:00 AM | | | | | PDT | | + + + + + | Height | 175.3 cm (5' 9") | 03/31/2018 9:00 AM | | | | | PDT | | + + + + + | Body Mass Index | 29.68 | 03/31/2018 9:00 AM | | | | | PDT | | + + + + + documented in this encounter Progress Notes Remberto Hurst MD - 03/31/2018 9:15 AM PDTPatient returns postop left carpal tunnel rele ase Doing very well His wound is healed without complication He has good range of motion and 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
--- OUTSIDE RECORDS SUMMARY | ~2020-06-06 | XMS | Encounter Summary ---
Demographics + + + | Address | NEED ADDRESS | | | [place] [address] | + + + | Home Phone | | + + + | Preferred Language | Unknown | + + + | Marital Status | Single | + + + | Hindu Affiliation | Unknown | + + + [...] Hector Garcia | ECON | [place] [address] | | + + + + + Care Team Providers + +------+ + | Care Schedule Clerk Name | Role | Phone | + +------+ + | Aryan Grossman MD | PCP | | + +------+ + Reason for Visit + +--------+ + | Reason | Onset | Comments | | | Date | | + +--------+ + | Follow-up | 10/22/ | | | | 2014 | | + +--------+ + Encounter Details +--------+ + + + + | Date | Type | Department | Care Team | Description | +--------+ + + + + | 10/22/ | Telephone | [facility] | Johnna Casanova, | Follow-up | | 2014 | | CARE [address] | Need updated | | | | | [place], [place] | address | | | | | [address] | | | | | | [phone] | | | +--------+ + + + [...] this encounter Miscellaneous Notes Telephone Encounter - More Parker RN - 10/22/2014 11:06 AM PSTPt states he is still rest ing shoulder, but it is improving and continues to heal. documented in this encounter Plan of Treatment Not on filedocumented as of this encounter Visit Diagnoses Not on filedocumented in this encounter"
--- OUTSIDE RECORDS SUMMARY | ~2020-06-06 | XMS | Encounter Summary ---
Demographics + + + | Address | NEED ADDRESS | | | [place] [address] | + + + | Home Phone | | + + + | Preferred Language | Unknown | + + + | Marital Status | Single | + + + | Mandaeism Affiliation | Unknown | + + + | Race | White | + + + | Ethnic Group | Not or | + + + Author + + + | Author | [facility] | | | and [place] | + + + | Organization | [facility] | | | [...] [address] Garcia | ECON | [place] [address] | | + + + + + Care Team Providers + +------+ + | Care Residence Supervisor Name | Role | Phone | + +------+ + | Aryan Grossman MD | PCP | | + +------+ + Reason for Visit + + + | Reason | Comments | + + + | Follow-up | | + + + | Results | Labs | + + + | Hypertension | | + + + Encounter Details +--------+---------+ + + + | Date | Type | Department | Care Team | Description | +--------+---------+ + + + | 01/01/ | Office | [facility] | Aryan Grossman, | Depression (Primary | | 2014 | Visit | MEDICINE [facility] [address] | [address] | Dx); Prostate cancer | | | | [address] [place], | [address] [place], | ([facility]); Essential | | | | [place] [address] | [place] [address] | hypertension; | | | | [phone] | [phone] | Nicotine addiction | | | | | | | [...] + + + | Blood Pressure | 160/92 | 01/01/2015 1:06 PM | | | | | PDT | | + + + + + | Pulse | 88 | 01/01/2015 1:06 PM | | | | | PDT | | + + + + + | Temperature | 37.1 C (98.8 F) | 01/01/2015 1:06 PM | | | | | PDT | | + + + + + | Respiratory Rate | 16 | 01/01/2015 1:06 PM | | | | | PDT | | + + + + + | Oxygen Saturation | 97% | 01/01/2015 1:06 PM | | | | | PDT | | + + + + + | Inhaled Oxygen | - | - | | | Concentration | | | | + + + + + | Weight | 88.9 kg (196 lb) | 01/01/2015 1:06 PM | | | | | PDT | | + + + + + | Height | 175.3 cm (5' 9") | 01/01/2015 1:06 PM | | | | | PDT | | + + + + + | Body Mass Index | 28.94 | 01/01/2015 1:06 PM | | | | | PDT | | + + + + + documented in this encounter Progress Notes Aryan Grossman MD - 01/01/2015 1:23 PM PDTFormatting of this note might be different f rom the original. Subjective: Patient ID: Mani Garcia is a 49 y.o. male. HPI Prostate Cancer. Recent PSA check, No pain and voiding well. Review of Systems Objective: Physical Exam Heent, WNL, No carotid bruit Chest CTAB Heart RR&R /s M Abd S,NT,ND,BS+ Ext, no CCor E Assessment: 1. Depression sertraline (ZOLOFT) 100 mg tablet 2. Prostate cancer (HCC) 3. Essential hypertension 4. Nicotine addiction Plan: RTC months, Increase the linopril. RTC 3 months. documented in this encounter Plan of Treatment Not on filedocumented as of this encounter Results PSA, Diagnostic (04/02/2015 2:28 PM PDT) + +-------+ + + + | Component | Value | Ref Range | Performed | Pathologist | | | | | At | Signature | + +-------+ + + + | PSA | 1.74 | <=4.00 ng/mL | [facility] | | [...] [address] | [place] | [phone] | | [facility] | | [address] | | | - LABORATORY | | | | + + + + + documented in this encounter Visit Diagnoses + + | Diagnosis | + + | Depression - Primary Depressive disorder, not elsewhere classified | + + | Prostate cancer (HCC) Malignant neoplasm of prostate | + + | Essential hypertension Unspecified essential hypertension | + + | Nicotine addiction Tobacco use disorder | + + documented in this encounter
--- OUTSIDE RECORDS SUMMARY | ~2020-06-06 | XMS | Encounter Summary ---
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[address] | | | | | cancer (HCC) | [address] | Kay, | | | | | Procedures | [place] | [place] [address] | | | | | CT Chest | [address] | Phone: | | | | | Abdomen | [place], [place] | [phone] | | | | | Pelvis w | [phone] | Fax: | | | | | Contrast CT | Phone: | [phone] | | | | | Chest | [phone] | | | | | | Abdomen | Fax: | | | | | | Pelvis w wo | [phone] | | | | | | Contrast [...] | Radiology | Diagnoses | [place], | [address] | | | | | 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, 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[address] | | | | | 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 (HCC) | [address] | Kay, | | | | | Procedures | [place] | [place] [address] | | | | | CT Chest | [address] | Phone: | | | | | Abdomen | [place], [place] | [phone] | | | | | Pelvis w | [phone] | Fax: | | | | | Contrast CT | Phone: | [phone] | | | | | Chest | [phone] | | | | | | Abdomen | Fax: | | | | | | Pelvis w wo | [phone] | | | | | | Contrast | | | +--------+--------+ + + + + Encounter Details +--------+ + + + + | Date | Type | Department | Care Team | Description | +--------+ + + + + | 07/20/ | Hospital | [facility] | Simran Osman, | Prostate cancer | | 2017 | Encounter | [facility] [address] | BIKE DESIGNER [address] [facility] | ([facility]) | | | | Hannah Ritchie, | [facility] | | | | | [place] [address] | [place], [place] | | | | | [phone] | [address] | | | | | | [phone] | | | | | | | [...] + +---------+ + + | ondansetron | As needed for | 2 | 0 | 05/16/20 | | | (ZOFRAN) 4 mg tablet | nausea; stop prep; | tablet | | 17 | 7 | | | take 1 tablet; wait | | | | | | | 30 min then resume | | | | | | | prep; repeat 1x prn | | | | | + + [...] | + +--------+ + + + | CT CHEST ABDOMEN | Routin | 07/20/2017 | Prostate cancer | Results for this | | PELVIS W CONTRAST | e | 10:40 AM | (HCC) | procedure are in the | | | | PDT | | results section. | + +--------+ + + + documented in this encounter Results CT Chest Abdomen Pelvis w Contrast (07/20/2017 10:40 AM PDT) + + | Specimen | + + | | + + + + + | Narrative | Performed At | + + + | ENHANCED CT CHEST, ABDOMEN, AND PELVIS, 07/20/2017 10:28 AM | [facility] | | CLINICAL HISTORY: Prostate cancer COMPARISON: Bone scan | | | and CT December 17 and more remote exams TECHNIQUE: Axial images | | | are performed through the chest, abdomen, and pelvis following the | | | uneventful intravenous administration of 90 mL Omnipaque 350 | | | contrast. Oral contrast was also administered. Multiplanar | | | reformations are also performed. CHEST FINDINGS: There is similar | | | ectasia of the ascending aorta to a diameter of 4.1 cm. The | | | mediastinum is otherwise unremarkable. No pathologic lymph node | | | enlargement is evident. There is no pleural or pericardial effusion | | | or pneumothorax. An accessory azygos fissure is again apparent. | | | Changes of centrilobular emphysema are suggested. A 5 mm nodule | | | along the course of the left major fissure on image 46 is stable | | | dating back to June 2014. A tiny, likely calcified nodule near | | | the course of the right minor fissure on image 47 also demonstrates | | | long-term stability. No new nodule, consolidation or airway | | | abnormality is evident. A 10 mm rounded sclerotic lesion within the | | | T9 vertebral body has increased in size and conspicuity from imaging | | | of December 17. No other lytic or blastic lesion is evident in the | | | chest. Mild bilateral gynecomastia persists. ABDOMEN FINDINGS: | | | A 7 mm rounded hypodensity in the lateral left hepatic lobe | | | demonstrates long-term stability consistent with a cyst. The | | | gallbladder, spleen, pancreas, adrenal glands and kidneys are | | | unremarkable. There is no hydroureteronephrosis. The stomach, | | | bowel and appendix are unremarkable. No free air, ascites, | | | pathologic lymph node enlargement or hernia is evident. There is | | | scattered aortoiliac calcification. The abdominal vasculature is | | | otherwise unremarkable. Adjacent tiny sclerotic foci are present | | | superiorly in the L2 vertebral body and a tiny sclerotic focus is | | | present superiorly in the L4 vertebral body as well. Severe lower | | | lumbar degenerative disc disease, spondylosis and central canal and | | | foraminal stenosis persist. PELVIS FINDINGS: Changes of | | | prostatectomy and pelvic lymph node dissection are again apparent. | | | The bladder is unremarkable. A small, fat-containing right | | | inguinal hernia persists. No free air or ascites is evident. There | | | are stable mildly prominent ilioinguinal lymph nodes measuring up to | | | 10 mm short axis in the right external iliac region on image 152. | | | An 8.5 mm rounded sclerotic lesion in the posterior left ilium has | | | increased in size and conspicuity. IMPRESSION - 1. FEW | | | NEW/ENLARGING SCLEROTIC LESIONS INVOLVING THE THORACOLUMBAR SPINE AND | | | LEFT ILIUM COMPARED WITH IMAGING OF DECEMBER 17, CONSISTENT WITH | | | DEVELOPING OSSEOUS METASTASES. 2. LONG-TERM STABILITY OF TWO | | | SMALL PULMONARY NODULES. 3. STABLE MILDLY PROMINENT ILIOINGUINAL | | | LYMPH NODES. Dictated and Signed by: Ranjith Saini MD | | | Electronically signed: 07/20/2017 12:11 PM | | + + + + + | Procedure Note | + + | Frank, Rad Results In - 07/20/2017 12:[address] CHEST, ABDOMEN, AND PELVIS, | | 07/20/2017 10:28 AM CLINICAL HISTORY: Prostate cancer COMPARISON: Bone scan and CT | | December 17 and more remote examsTECHNIQUE: Axial images are performed through the chest, | | abdomen, and pelvisfollowing the uneventful intravenous administration of 90 mL | | Omnipaque 350contrast. Oral contrast was also administered. Multiplanar reformations | | arealso performed.CHEST FINDINGS: There is similar ectasia of the ascending aorta to a | | diameter of4.1 cm. The mediastinum is otherwise unremarkable. No pathologic lymph | | nodeenlargement is evident. There is no pleural or pericardial effusion orpneumothorax. | | An accessory azygos fissure is again apparent. Changes ofcentrilobular emphysema are | | suggested. A 5 mm nodule along the course of theleft major fissure on image 46 is | | stable dating back to June 2014. A tiny,likely calcified nodule near the course of | | the right minor fissure on image 47also demonstrates long-term stability. No new | | nodule, consolidation or airwayabnormality is evident. A 10 mm rounded sclerotic lesion | | within the H1huplzyslv body has increased in size and conspicuity from imaging of November | . No other lytic or blastic lesion is evident in the chest. Mild | | bilateralgynecomastia persists.ABDOMEN FINDINGS: A 7 mm rounded hypodensity in the | | lateral left hepatic lobedemonstrates long-term stability consistent with a cyst. The | | gallbladder,spleen, pancreas, adrenal glands and kidneys are unremarkable. There is | | nohydroureteronephrosis. The stomach, bowel and appendix are unremarkable. Nofree air, | | ascites, pathologic lymph node enlargement or hernia is evident. There is scattered | | aortoiliac calcification. The abdominal vasculature isotherwise unremarkable. Adjacent | | tiny sclerotic foci are present superiorly inthe L2 vertebral body and a tiny sclerotic | | focus is present superiorly in the E2kpnaibpgg body as well. Severe lower lumbar | | degenerative disc disease,spondylosis and central canal and foraminal stenosis | | persist.PELVIS FINDINGS: Changes of prostatectomy and pelvic lymph node dissection | | areagain apparent. The bladder is unremarkable. A small, fat-containing rightinguinal | | hernia persists. No free air or ascites is evident. There are stablemildly prominent | | ilioinguinal lymph nodes measuring up to 10 mm short axis inthe right external iliac | | region on image 152. An 8.5 mm rounded scleroticlesion in the posterior left ilium has | | increased in size and conspicuity.IMPRESSION - 1. FEW NEW/ENLARGING SCLEROTIC LESIONS | | INVOLVING THE THORACOLUMBAR SPINE ANDLEFT ILIUM COMPARED WITH IMAGING OF DECEMBER 17, | | CONSISTENT WITH DEVELOPING OSSEOUSMETASTASES.2. LONG-TERM STABILITY OF TWO SMALL | | PULMONARY NODULES.3. STABLE MILDLY PROMINENT ILIOINGUINAL LYMPH NODES.Dictated and | | Signed by: Ranjith Saini MD Electronically signed: 07/20/2017 12:11 PM | | | |PELVIS FINDINGS: Changes of prostatectomy and pelvic lymph node dissection are | |again apparent. The bladder is unremarkable. A small, fat-containing right | |inguinal hernia persists. No free air or ascites is evident. There are stable | |mildly prominent ilioinguinal lymph nodes measuring up to 10 mm short axis in | |the right external iliac region on image 152. An 8.5 mm rounded sclerotic | |lesion in the posterior left ilium has increased in size and conspicuity. | | | |IMPRESSION - | |1. FEW NEW/ENLARGING SCLEROTIC LESIONS INVOLVING THE THORACOLUMBAR SPINE AND | |LEFT ILIUM COMPARED WITH IMAGING OF DECEMBER 17, CONSISTENT WITH DEVELOPING OSSEOUS | |METASTASES. | | | |2. LONG-TERM STABILITY OF TWO SMALL PULMONARY NODULES. | | | |3. STABLE MILDLY PROMINENT ILIOINGUINAL LYMPH NODES. | | | |Dictated and Signed by: Ranjith Saini MD | | Electronically signed: 07/20/2017 12:11 PM | + + + +---------+ + [...] in this encounter Administered Medications + +--------+ +--------+------+------+ | Medication Order | MAR | Action | Dose | Rate | Site | | | Action | Date | | | | + +--------+ +--------+------+------+ | iohexol (OMNIPAQUE 350) 350 | Given | 07/20/20 | 90 mLs | | | | mg/mL injection 90 mL 90 mL, | | 17 10:31 | | | | | Intravenous, ONCE PRN, Other, for | | AM PDT | | | | | imaging CT study, Starting Wed | | | | | | | 07/20/17 at 1029, For 1 dose, | | | | | | | Radiology | | | | | | + +--------+ +--------+------+------+ +---+---+ | | | +---+---+ documented in this encounter"
--- OUTSIDE RECORDS SUMMARY | ~2020-06-06 | XMS | Encounter Summary ---
Demographics + + + | Address | NEED ADDRESS | | | [place] [address] | + + + | Home Phone | | + + + | Preferred Language | Unknown | + + + | Marital Status | Single | + + + | Mosque Affiliation | Unknown | + + + | Race | White | + + + | Ethnic Group | Not or | + + + Author + + + | Author | [facility] | | | and [place] | + + + | Organization | [facility] | | [...] Hector Garcia | ECON | [place] [address] | | + + + + + Care Team Providers + +------+ + | Care Ocean Freight Agent Name | Role | Phone | + +------+ + | Loi Frausto PA-C | PCP | | + +------+ + Encounter Details +--------+ + + + + | Date | Type | Department | Care Team | Description | +--------+ + + + + | 05/18/ | Episode | [facility] [place] | Joanne Burrows | | | 2017 | Changes | GASTROENTEROLOGY | L, RN | | | | | [address] [place] | | | | | | [address] [place], [place] | | | | | | [address] | | | | | | [phone] | | | +--------+ + + + [...]
--- OUTSIDE RECORDS SUMMARY | ~2020-06-06 | XMS | Encounter Summary ---
Demographics + + + | Address | NEED ADDRESS | | | [place] [address] | + + + | Home Phone | | + + + | Preferred Language | Unknown | + + + | Marital Status | Single | + + + | Gnosticism Affiliation | Unknown | + + + | Race | White | + + + | Ethnic Group | Not or | + + + Author + + + | Author | [facility] | | | and [place] | + + + | Organization | [facility] | | | [...] Hector Garcia | ECON | [place] [address] | | + + + + + Care Team Providers + +------+ + | Care Expansion Joint Builder Name | Role | Phone | + +------+ + | Loi Frausto PA-C | PCP | | + +------+ + Encounter Details +--------+ + + + + | Date | Type | Department | Care Team | Description | +--------+ + + + + | 04/26/ | Orders Only | [facility] [place] | Jerrod Casanova | Back pain, | | 2019 | | NEUROSURGERY [address] | [address] | unspecified back | | | | [address] [place] [place], [place] | location, | | | | [place], [place] | [address] | unspecified back | | | | [address] | | pain laterality, | | | | [phone] | | unspecified | | | | | | chronicity (Primary | | | | | | Dx) | +--------+ + + + + Social [...] as of this encounter Plan of Treatment + +---------+--------+ + + | Name | Type | Priori | Associated Diagnoses | Order Schedule | | | | ty | | | + +---------+--------+ + + | XR Lumbar Spine 4 + | Imaging | Routin | Back pain, | Expected: | | Vw | | e | unspecified back | 04/26/2019, Expires: | | | | | location, | 04/26/2020 | | | | | unspecified back | | | | | | pain laterality, | | | | | | unspecified | | | | | | chronicity | | + +---------+--------+ + + documented as of this encounter Visit Diagnoses + + | Diagnosis | + + | Back pain, unspecified back location, unspecified back pain laterality, unspecified | | chronicity - Primary | + + documented in this encounter"
--- OUTSIDE RECORDS SUMMARY | ~2020-06-06 | XMS | Encounter Summary ---
Demographics + + + | Address | NEED ADDRESS | | | [place] [address] | + + + | Home Phone [...] Hector Garcia | ECON | [place] [address] | | + + + + + Care Team Providers + +------+ + | Care Outreach Team Member Name | Role | Phone | + +------+ + | Aryan Grossman MD | PCP | | + +------+ + Reason for Visit + +--------+ + | Reason | Onset | Comments | | | Date | | + +--------+ + | Medication Refill | 02/26/ | | | | 2015 | | + +--------+ + Encounter Details +--------+--------+ + + + | Date | Type | Department | Care Team | Description | +--------+--------+ + + + | 02/26/ | Refill | [facility] [place] [facility] | Aryan Grossman, | Medication Refill | | 2015 | | MEDICINE [address] | [place] [address] | | | | | [place], | [place] [address] [place], | | | | | [place] [address] | [place] [address] | | | | | [phone] | [phone] | | | | | | | | +--------+--------+ + + + Social History + + [...] Encounter - Kyleigh De Santiago RN - 02/27/2016 2:17 PM PDTPhoned [facility]. Please sign and close, documented in this encounter Plan of Treatment Not on filedocumented as of this encounter Visit Diagnoses Not on filedocumented in this encounter"
--- OUTSIDE RECORDS SUMMARY | ~2020-06-06 | XMS | Encounter Summary ---
Demographics + + + | Address | NEED ADDRESS | | | [place] [address] | + + + | Home Phone [...] Author + + + | Author | [facility] | | | and [place] | + + + | Organization | [facility] | | | [...] + | Hector Garcia | ECON | [place] [address] | | + + + + + Care Team Providers + +------+ + | Care Cd Mixer Helper Name | Role | Phone | + [...] Radiology | Diagnoses | Shruthi, | [address] | | | | | Prostate | Zeeshan Powell MD | [address] [place] | | | | | cancer (HCC) | [address] | [place], | | | | | Procedures | [address] | [place] [address] | | | | | CT Abdomen | [place] | Phone: | | | | | Pelvis w | [address] | [phone] | | | | | Contrast | Phone: | Fax: | | | | | [address] | [phone] | [phone] | | | | | SCAN,ABDOMEN | Fax: | | | | | | T AND | [phone] | | | | | | PELVIS,W | | | | | | | CONTRAST | | | +--------+--------+ + + + + Reason for Visit Diagnostic/Screening (Routine) +--------+--------+ + + + + | Status | Reason | Specialty | Diagnoses / | Referred By | Referred To | | | | | Procedures | Contact | Contact | +--------+--------+ + + + + | Closed | | Radiology | Diagnoses | Shruthi, | [address] | | | | | Prostate | Zeeshan Powell MD | [address] [place] | | | | | cancer (HCC) | [address] | [place], | | | | | Procedures | [place] | [place] [address] | | | | | CT Abdomen | [place] | Phone: | | | | | Pelvis w | [address] | [phone] | | | | | Contrast | Phone: | Fax: | | | | | [address] | [phone] | [phone] | | | | | SCAN,ABDOMEN | Fax: | | | | | | T AND | [phone] | | | | | | PELVIS,W | | | | | | | CONTRAST | | | +--------+--------+ + + + + Encounter Details +--------+ + + + + | Date | Type | Department | Care Team | Description | +--------+ + + + + | 02/21/ | Hospital | [facility] | Zeeshan Hawkins, | Prostate cancer | | 2014 | Encounter | [facility] [address] | [address] | ([facility]) | | | | [place], | [place] | | | | | [place] [address] | [address] | | | | | [phone] | | | +--------+ + + + [...] documented as of this encounter Miscellaneous Notes Miscellaneous - ONBASE SCAN [facility] - 02/22/2014 12:00 AM PDT documented in this encounter Plan of Treatment Not on filedocumented as of this encounter Procedures + +--------+ + + + | Procedure Name | Priori | Date/Time | Associated Diagnosis | Comments | | | ty | | | | + +--------+ + + + | CT ABDOMEN PELVIS W | Routin | 02/21/2014 | Prostate cancer | Results for this | | CONTRAST | e | 10:24 AM | (HCC) | procedure are in the | | | | PDT | | results section. | + +--------+ + + + documented in this encounter Results CT Abdomen Pelvis w Contrast (02/21/2014 10:24 AM PDT) + + | Specimen | + + | | + + + + + | Narrative | Performed At | + + + | EXAM: CT ABDOMEN PELVIS W CONTRAST dated 02/21/2014 10:12 AM | [facility] | | HISTORY:Prostate cancer Comparison: None. TECHNIQUE: Imaging | LAB | | is performed from the lung bases through the pubic symphysis with | | | oral contrast and following the uneventful intravenous administration | | | of 100 mL Omnipaque 350. DOSE: DLP 512.60 mGy-cm FINDINGS: | | | LUNG BASES: The lung bases are clear. There is no visible | | | pleural effusion or pneumothorax. There is no significant | | | pericardial thickening. LIVER: The liver is unremarkable in | | | attenuation and enhancement. There is a 6 mm hypodensity in the | | | left lobe of the liver. GALLBLADDER: The gallbladder is not | | | distended. There are no calcified cholelithiasis. No visible | | | biliary ductal dilatation. SPLEEN: The spleen is unremarkable. | | | There is no splenomegaly. PANCREAS: The pancreas is | | | unremarkable. The pancreatic duct is not dilated. ADRENALS: | | | There is a small 1 x 0.6 cm nodule involving the right adrenal gland. | | | KIDNEYS: The kidneys are symmetrically enhancing. There are no | | | focal renal lesions. There is no nephrolithiasis. There is no | | | obstructive uropathy. BOWEL: There is no evidence for | | | gastrointestinal tract obstruction. There is no evidence for | | | appendicitis. There is diverticulosis which predominates in the | | | sigmoid colon. There is no evidence for active diverticulitis. | | | VASCULATURE AND LYMPH NODES: There is no aneurysmal dilatation of | | | the abdominal aorta. The major venous structures are patent and | | | unremarkable. There is no pelvic or abdominal lymphadenopathy. | | | BLADDER: The bladder is unremarkable. The prostate is not | | | significantly enlarged. BONES: Disc collapse at L4-L5. No | | | compression deformities. Degenerative retrolisthesis of L4 on L5 | | | and a 5 on S1. There are no lytic or blastic bone lesions. | | | Posttraumatic irregularity of the right iliac crest. OTHER: | | | There is no free fluid. There is no free air. IMPRESSION - | | | No CT evidence for metastatic prostate cancer. Mild | | | diverticulosis. 1 cm right adrenal nodule. This is nonspecific. | | | If this is an unknown finding consider additional evaluation. | | | Nonspecific 6 mm hypodensity in the liver. This most commonly would | | | represent a small cyst. Dictated and Signed by: Antonio Peterson | | | MD Ravindra Electronically signed: 02/21/2014 11:28 AM | | + + + + + | Procedure Note | + + | Frank, Rad Results In - 02/21/2014 11:31 AM PDT EXAM: CT ABDOMEN PELVIS W CONTRAST | | dated 02/21/2014 10:12 AMHISTORY:Prostate cancerComparison: None.TECHNIQUE: Imaging is | | performed from the lung bases through the pubic symphysiswith oral contrast and | | following the uneventful intravenous administration of100 mL Omnipaque 350.DOSE: DLP | | 512.60 mGy-cmFINDINGS: LUNG BASES: The lung bases are clear. There is no visible | | pleural effusion orpneumothorax. There is no significant pericardial thickening.LIVER: | | The liver is unremarkable in attenuation and enhancement. There is a 6mm hypodensity in | | the left lobe of the liver.GALLBLADDER: The gallbladder is not distended. There are no | | calcifiedcholelithiasis. No visible biliary ductal dilatation.SPLEEN: The spleen is | | unremarkable. There is no splenomegaly.PANCREAS: The pancreas is unremarkable. The | | pancreatic duct is not dilated.ADRENALS: There is a small 1 x 0.6 cm nodule involving | | the right adrenal gland.KIDNEYS: The kidneys are symmetrically enhancing. There are no | | focal renallesions. There is no nephrolithiasis. There is no obstructive | | uropathy.BOWEL: There is no evidence for gastrointestinal tract obstruction. There is | | noevidence for appendicitis. There is diverticulosis which predominates in thesigmoid | | colon. There is no evidence for active diverticulitis.VASCULATURE AND LYMPH NODES: | | There is no aneurysmal dilatation of the abdominalaorta. The major venous structures | | are patent and unremarkable. There is nopelvic or abdominal lymphadenopathy.BLADDER: | | The bladder is unremarkable. The prostate is not significantlyenlarged.BONES: Disc | | collapse at L4-L5. No compression deformities. Degenerativeretrolisthesis of L4 on L5 | | and a 5 on S1. There are no lytic or blastic bonelesions. Posttraumatic irregularity | | of the right iliac crest.OTHER: There is no free fluid. There is no free air.IMPRESSION | | - No CT evidence for metastatic prostate cancer.Mild diverticulosis.1 cm right adrenal | | nodule. This is nonspecific. If this is an unknown findingconsider additional | | evaluation.Nonspecific 6 mm hypodensity in the liver. This most commonly would | | represent asmall cyst.Dictated and Signed by: Antonio Waite MD Electronically | | signed: 02/21/2014 11:28 AM | |ADRENALS: There is a small 1 x 0.6 cm nodule involving the right adrenal gland. | | | |KIDNEYS: The kidneys are symmetrically enhancing. There are no focal renal | |lesions. There is no nephrolithiasis. There is no obstructive uropathy. | | | |BOWEL: There is no evidence for gastrointestinal tract obstruction. There is no | |evidence for appendicitis. There is diverticulosis which predominates in the | |sigmoid colon. There is no evidence for active diverticulitis. | | | |VASCULATURE AND LYMPH NODES: There is no aneurysmal dilatation of the abdominal | |aorta. The major venous structures are patent and unremarkable. There is no | |pelvic or abdominal lymphadenopathy. | | | |BLADDER: The bladder is unremarkable. The prostate is not significantly | |enlarged. | | | |BONES: Disc collapse at L4-L5. No compression deformities. Degenerative | |retrolisthesis of L4 on L5 and a 5 on S1. There are no lytic or blastic bone | |lesions. Posttraumatic irregularity of the right iliac crest. | | | |OTHER: There is no free fluid. There is no free air. | | | |IMPRESSION - | | | |No CT evidence for metastatic prostate cancer. | | | |Mild diverticulosis. | | | |1 cm right adrenal nodule. This is nonspecific. If this is an unknown finding | |consider additional evaluation. | | | |Nonspecific 6 mm hypodensity in the liver. This most commonly would represent a | |small cyst. | | | | | | | |Dictated and Signed by: Antonio Waite MD | | Electronically signed: 02/21/2014 11:28 AM | + + + +---------+ + + | Performing | Address | City/State/Zipcode | Phone Number | | Organization | | | | + +---------+ + + | [facility] | | | [phone] | + +---------+ + + | [facility] | | | [phone] | + +---------+ + + documented in this encounter Visit Diagnoses + + | Diagnosis | + + | Prostate cancer (HCC) Malignant neoplasm of prostate | + + documented in this encounter Administered Medications + +--------+ +---------+------+------+ | Medication Order | MAR | Action | Dose | Rate | Site | | | Action | Date | | | | + +--------+ +---------+------+------+ | iohexol (OMNIPAQUE 350) 350 | Given | 02/22/20 | 100 mLs | | | | mg/mL injection 100 mL 100 mL, | | 14 10:25 | | | | | Intravenous, ONCE PRN, Other, | | AM PDT | | | | | Starting [facility] 02/21/14 at 1024, For | | | | | | | 1 dose, Cat Scanner | | | | | | + +--------+ +---------+------+------+ +---+---+ | | | +---+---+ documented in this encounter"
--- OUTSIDE RECORDS SUMMARY | ~2020-06-06 | XMS | Encounter Summary ---
Demographics + + + | Address | NEED ADDRESS | | | [place] [address] | + + + | Home Phone | | + + + | Preferred Language | Unknown | + + + | Marital Status | Single | + + + | Protestant Affiliation | Unknown | + + + | Race | White | + + + | Ethnic Group | Not or | + + + Author + + + | Author | [facility] | | | and [place] | + + + | Organization | [facility] | | | [...] + | Hector Garcia | ECON | [place] [address] | | + + + + + Care Team Providers + +------+ + | Care Medical Assisting Program Director Name | Role | Phone | [...] | y | Neoplasm of | Antony Stanely MD | Otolaryngolog | | | Required | | uncertain | [address] | y [address] | | | | | behavior of | [address] | [address] | | | | | tongue | [place], | [address] [place] | | | | | Procedures | [place] [address] | [place], [place] | | | | | [place] | Phone: | [phone] | | | | | TONGUE | [phone] | Phone: | | | | | [place] | Fax: | [phone] | | | | | 2/3+CLOS | [phone] | Fax: | | | | | | | [phone] | +--------+ + + + + + Encounter Details +--------+ + + + + | Date | Type | Department | Care Team | Description | +--------+ + + + + | 12/12/ | Orders Only | [facility] | Antony Grider MD | Tongue lesion | | 2017 | | OTOLARYNGOLOGY [address] | [address] | (Primary Dx) | | | | [address] | [address] [place], [place] | | | | | [place], [place] | [address] | | | | | [address] | | | | | | [phone] | | | +--------+ + + + [...] of this encounter Plan of Treatment + + +--------+ + + | Name | Type | Priori | Associated Diagnoses | Order Schedule | | | | ty | | | + + +--------+ + + | * [facility] [place] | Outpatient | Routin | Tongue lesion | Ordered: 09/07/2017 | | Otolaryngology - AMB | Referral | e | | | | Referral | | | | | + + +--------+ + + documented as of this encounter Visit Diagnoses + + | Diagnosis | + + | Tongue lesion - Primary Other specified conditions of the tongue | + + documented in this encounter"
--- OUTSIDE RECORDS SUMMARY | ~2020-06-06 | XMS | Encounter Summary ---
Demographics + + + | Address | [address] | | | [place] [address] | + + + | Home Phone | | + + + | Preferred Language | Unknown | + + + | Marital Status | Single | + + + | Sikh Affiliation | CHR | + + + | Race | White | + + + | Ethnic Group | Not or | + + + Author + + + | Author | [facility] | + + + | Organization | [facility] | + + + | Address | Unknown | + + + | Phone | Unavailable | + + + Support + + +---------+ + | Name | Relationship | Address | Phone | + + +---------+ + | Servando Boyer | ECON | Unknown | | + + +---------+ + Care Team Providers + +------+ + | Care Build Master Name | Role | Phone | + +------+ + | Aryan Grossman MD | PCP | | + +------+ + Encounter Details +--------+------+ + + + | Date | Type | Department | Care Team | Description | +--------+------+ + + + | 03/28/ | Lab | Laboratory at [facility] | | Prostate cancer | | 2017 | | [address] | | ([facility]) | | | | [facility] | | | | | | and Healing, | | | | | | [address] | | | | | | [place], [place] | | | | | | [address] | | | | | | [phone] | | | +--------+------+ + + + [...] | [facility] PSA TOTAL, | Routin | 03/28/2017 | Prostate cancer | Results for this | | MONITORING | e | 10:54 AM | (HCC) | procedure are in the | | | | PDT | | results section. | + +--------+ + + + | VITAMIN D, | Routin | 03/28/2017 | Prostate cancer | Results for this | | 25-HYDROXY, SERUM | e | 10:54 AM | (HCC) | procedure are in the | | | | PDT | | results section. | + +--------+ + + + documented in this encounter Results [facility] PSA TOTAL, MONITORING (03/28/2017 10:54 AM PDT) + +-------+ + + + | Component | Value | Ref Range | Performed | Pathologist | | | | | At | Signature | + +-------+ + + + | PSA TOTAL | 3.03 | ng/mL | [facility] | | | [...] | + + + + + | [facility] | [address] | [place] [address] | | | SERVICES, [facility] | | | | [facility] + [facility]ALING | | | | + + + + + VITAMIN D, 25-HYDROXY, SERUM (03/28/2017 10:54 AM PDT) + + + + + + | Component | Value | Ref Range | Performed | Pathologist | | | | | At | Signature | + + + + + + | VITAMIN D | 28.1 (L) | 30 - 80 ng/mL | [facility] | | | 25 HYDROXY | | | LABORATORY | | | | | | SERVICES, | | | | | | CORE | | + + + + + + + + | Specimen | + + | Blood - Blood | | (substance) | + + + + + | Narrative | Performed At | + + + | Reference Interval: 0-18years: Deficiency: <20 ng/mL | [facility] | | Optimum level: >or=20 ng/mL | LABORATORY | | >18years: Deficiency: <20 | SERVICES, CORE | | ng/mL Insufficiency: 20-29 ng/mL | | | Optimum Level: 30-80 ng/mL High: | | | 81-150 ng/ml Toxic: >150 ng/mL | | + + + + + + + + | Performing | Address | City/State/Zipcode | Phone Number | | Organization | | | | + + + + + | [facility] | [address] | [place] [address] | | | SERVICES, CORE | [address] | | | + + + + + documented in this encounter Visit Diagnoses + + | Diagnosis | + + | Prostate cancer (HCC) Malignant neoplasm of prostate | + + documented in this encounter"
--- OUTSIDE RECORDS SUMMARY | ~2020-06-06 | XMS | Encounter Summary ---
Demographics + + + | Address | NEED ADDRESS | | | [address] [address] [address] | + + + | Home Phone [...] + | Hector Garcia | ECON | [place] [address] | | + + + + + Care Team Providers + +------+ + | Care Reception Manager Name | Role | Phone | [...] Medicine | NAHUN | Christian Gupta | [place] [address] [address] | | | Required | | (obstructive | [address] [place] | | | | | sleep | [place] | [place], | | | | | apnea) CSA | [facility] | [place] [address] | | | | | (central | [place], [place] | Phone: | | | | | sleep apnea) | [address] | [phone] | | | | | Procedures | Phone: | Fax: | | | | | [place] POLYSOM | [phone] | [phone] | | | | | 6/>YRS | Fax: | | | | | | SLEEP W/CPAP | [phone] | | | | | | 4/> ADDL | | | | | | | ALVARO ATTND | | | | | | | [place] POLYSOM | | | | | | | 6/>YRS SLEEP | | | | | | | 4/> ADDL | | | | | | | ALVARO ATTND | | | | | | | CPAP | | | | | | | (possible | | | | | | | ASV) (DOS: | | | | | | | 5/14 @ 7pm) | | | | | | | pt on | | | | | | | cancellation | | | | | | | list | | | +--------+ + + + + + Reason for Visit + + + | Reason | Comments | + + + | Sleep Study | | | (Follow-up) | | + + + Encounter Details +--------+---------+ + + + | Date | Type | Department | Care Team | Description | +--------+---------+ + + + | 01/16/ | Office | [facility] | Christian Sosa | NAHUN (obstructive | | 2018 | Visit | SLEEP DISORDER [address] | [address] | sleep apnea) | | | | [address] [place] | [address] [facility] | (Primary Dx); CSA | | | | [place] [address] | [place] [address] | (central sleep | | | | [phone] | [phone] | apnea); Periodic | | | | | | limb movements of | | | | | | sleep; REM sleep | | | | | | behavior disorder | +--------+---------+ + + + Social History [...] + + + | Blood Pressure | 150/90 | 01/16/2018 8:28 AM | | | | | PDT | | + + + + + | Pulse | 99 | 01/16/2018 8:28 AM | | | | | PDT | | + + + + + | Temperature | - | - | | + + + + + | Respiratory Rate | 16 | 01/16/2018 8:28 AM | | | | | PDT | | + + + + + | Oxygen Saturation | 99% | 01/16/2018 8:28 AM | | | | | PDT | | + + + + + | Inhaled Oxygen | - | - | | | Concentration | | | | + + + + + | Weight | 89 kg (196 lb 3.4 | 01/16/2018 8:28 AM | | | | oz) | PDT | | + + + + + | Height | - | - | | + + + + + | Body Mass Index | 28.98 | 12/29/2017 8:34 AM | | | | | PDT | | + + + + + documented in this encounter Progress Notes Christian Sosa Jr., MD - 01/16/2018 8:30 AM PDTThe patient comes in for follow-up after undergoing diagnostic polysomnography. My interpretation of the patient's sleep study, which I have reviewed with the patient, is as follows: Clinical Information: Mani Garcia is a 52 y.o. male who underwent diagnostic nocturnal polysomnography on December 26, [address] Gloria because of possible obstructive s leep apnea.. Technical Information: Please see technical data which is attached. Definitions (The AASM Manual for the Scoring of Sleep and Associated Events, Version 2.4; 2 017): Apnea: There is a drop in the peak signal excursion by 90% or greater of pre-brneda nt baseline using an oronasal thermal sensor (diagnostic study), PAP device flow (titration study), or an alternative apnea sensor (diagnostic study); the duration of the 90% or greate r drop in sensor signal is 10 seconds or longer. Obstructive Apnea: Event associated with continued or increased inspi ratory effort throughout the entire period of absent airflow. Central Apnea: Event associated with absent inspiratory effort throug hout the entire period of absent airflow. Mixed Apnea: Event associated with absent inspiratory effort in the i nitial portion of the event followed by resumption of inspiratory effort during the second p ortion of the event. Hypopnea: The peak signal excursions drop by greater than or equal to 30% of pre -event baseline using a recommended or alternative airflow sensor and the duration of the >= 30% drop in signal excursion is greater than or equal to 10 seconds and there is a greater than or equal to a 4% oxygen desaturation from pre-event baseline. Respiratory Event Related Arousal: A sequence of breaths lasting 10 seconds or l onger characterized by increasing respiratory effort or by flattening of the inspiratory por tion of the nasal pressure (diagnostic study) or PAP device flow (titration study) waveform leading to arousal from sleep when the sequence of breaths does not meet criteria for an senior net engineer ea or hypopnea. Sleep Architecture: Lights out was recorded at 2101 hundred hours on December 26, 2017 and lig hts on was recorded at 0919 hundred hours on December 27, 2017. The latency to sleep onset was p rolonged at 39 minutes. The patient slept for 496 minutes out of 737.5 minutes of study time resulting an a sleep efficiency that was 67.3%. Sleep maintenance was also low at 71.4 %. The amount of N1 sleep was normal at 7.8 % of the Total Sleep Time; the amount of N2 sleep was elevated at 79.5 % of the Total Sleep Time; the amount of N3 sleep was low at 0 % of the Total Sleep Time; the amount of REM sleep was mildly decreased at 12.7 % of the Total Sleep Time and the latency to REM sleep prolonged at 220.5 minutes. Sleep in the following positions was recorded: left lateral decubitus 56.6%, right lateral decubitus 1%, supine 32.2%, prone 10.3%. Sleep was mildly fragmented; the Arousal Index was 22.7. The patient reported this to be much worse than a usual night's sleep. Cardiopulmonary Monitoring: The heart rate averaged in the mid to upper 80s beats per minut e. Mild rate variability was noted. The rhythm was sinus. In the course of the evening there were 37 obstructive apneas, 8 mixed apneas, 33 central a pneas, 18 hypopneas, and 96 Respiratory Effort Related Arousals (RERA's). The Respiratory Di sturbance Index (RDI) was elevated at 16.9; the Apnea-Hypopnea Index elevated at 11.6; the A pnea Index (AI) elevated at 9.4. The respiratory events were sleep stage dependent. The brenda nts were more frequently seen in non-REM sleep (REM related Apnea Hypopnea Index 5.7, non-RE M related Apnea Hypopnea Index 12.5). The respiratory events were significantly positional. The events were primarily seen in the supine position (supine Apnea Hypopnea Index 32.4, no nsupine Apnea Hypopnea Index 1.8). The respiratory events occasioned significant sleep fragmentation; the Respiratory Arousal Index was 10.8. The adarsh oxygen saturation was 89% and the patient spent 0 minutes with an oxygen saturati on of less than 88%. ETCO2 was not significantly elevated. Limb Movement Monitoring: There were 437 Periodic Limb Movements (PLMS Index of 52.9) of wh ich 28 were associated with arousals; the PLMS Arousal Index was normal at 3.4. Miscellaneous: Phasic chin EMG and leg EMG activity was noted more than one expects in REM sleep. My notes of the feet were noted during REM sleep. This all suggests mild REM sleep behavior disorder. No violent movements were noted. Interpretation: This polysomnogram is abnormal secondary to: A combination of obstructive and central sleep apnea is diagnosed. This is not associated with significant oxygen desaturation. This is associated with mild sleep fragmentation the primary pathology is felt to be that of obstructive sleep apnea however. The central apneas did not occur in a Ari-Rasmussen pattern Periodic limb movements of sleep are present but they did not seem to significantly fragmen t sleep. Chin and leg EMG suppression during REM sleep was abnormal. Foot movements during REM slee p were noted. The combination suggests REM sleep behavior disorder. The movements noted in REM sleep were not periodic limb movements. Suggestions: 1. The principles of sleep hygiene should be reviewed with the patient. 2. Treatment of Obstructive Sleep Apnea is advised. Polysomnographically guided positive a irway pressure titration is advised. The titration should start with CPAP but if central ap neas persist, ASV would be warranted. 3. Close follow-up is recommended because of the possibility of REM Sleep Behavior Disorder . 4. A ferritin level should be checked. If the ferritin level is less than 75ug/ml, iron sup plementation should be considered to raise the ferritin to above 75ug/ml. This may help with PLMS. Once the ferritin level is above 75ug/ml, pharmacologic therapy of PLMS/RLS should be considered if they are felt to be clinically significant. The patient states that he really doesn't have a restless feeling in his legs at night. He does have pain in his right leg which he thinks may be nerve pain. He is saying Loi caicedo this morning for further evaluation of this. The patient also states that as far as he knows he does not have dream enactment at night. BP 150/90 | Pulse 99 | Resp 16 | Wt 89 kg (196 lb 3.4 oz) | SpO2 99% | BMI 28.98 kg/m A: NAHUN + CSA: The patient has a combination of obstructive sleep apnea as well as a degree of central sleep apnea (not Ari-Rasmussen). He is on no opioids. I have tried to explain b oth types of sleep apnea to him. I'm not sure how much he understands. I do think that pos itive airway pressure therapy is warranted so. I have discussed this with him. Because of the complexity of his underlying sleep-related breathing disorder I think polysomnographical ly guided positive airway pressure titration is advised. We will start with CPAP but we may need to switch to ASV if symptoms persist. Periodic limb movements of sleep: I've discussed Restless Legs Syndrome with the dariel ent. I've also discussed Periodic Limb Movements of Sleep. I've discussed the relationship b etween the two. I've also discussed that I generally offer treatment symptomatically. I've a lso discussed an overview of treatment: 1) maintain a ferritin level above 75ug/l; 2) Bedti me leg/arm massage; 3) review the need for medications that can worsen RLS/PLMS (such as ant idepressants (except for bupropion) and antihistamines); 4) prescribe medications such as a) dopaminergics, b) benzodiazepine receptor agonists, c) opiates, and/or d) atypical anti-sei zure agents. Today we will check a ferritin level. In terms of his use of antidepressants I will leave this up to his primary care providers. REM Sleep Behavior Disorder: The patient also has evidence to suggest the possibility of REM sleep behavior disorder. Once again this can be a side effect of antidepressant use. Whether his antidepressant should be continued I will leave up to his primary care provide r. Sleep-related breathing disorders can also exacerbate REM sleep behavior disorder. I am hopeful that by treating his sleep-related breathing disorders that this might improve also . P: Ferritin Level PSG guided PAP titration: Will start with CPAP but if CSA persists we will switch to A SV therapy. documented in th is encounter Miscellaneous Notes Addendum Note - Christian Sosa Jr., MD - 01/16/2018 8:30 AM PDT Addended by: NAE SOSA on: 01/16/2018 11:07 Modules accepted: Orders documented in this encounter Plan of Treatment + + +--------+ + + | Name | Type | Priori | Associated Diagnoses | Order Schedule | | | | ty | | | + + +--------+ + + | * [facility] - | Outpatient | Routin | NAHUN (obstructive | Ordered: 01/16/2018 | | AMB Referral | Referral | e | sleep apnea) CSA | | | | | | (central sleep | | | | | | apnea) | | + + +--------+ + + documented as of this encounter Results Ferritin (01/16/2018 9:07 AM PDT) + +-------+ + + + | Component | Value | Ref Range | Performed | Pathologist | | | | | At | Signature | + +-------+ + + + | FERRITIN | 140 | 24 - 366 ng/mL | [facility] | | | | [...] [address] | [place] | [phone] | | [facility] | | [address] | | | - LABORATORY | | | | + + + + + documented in this encounter Visit Diagnoses + + | Diagnosis | + + | NAHUN (obstructive sleep apnea) - Primary Obstructive sleep apnea (adult) (pediatric) | + + | CSA (central sleep apnea) Unspecified sleep apnea | + + | Periodic limb movements of sleep Periodic limb movement disorder | + + | REM sleep behavior disorder | + + documented in this encounter"
--- OUTSIDE RECORDS SUMMARY | ~2020-06-06 | XMS | Encounter Summary ---
Demographics + + + | Address | NEED ADDRESS | | | [address] [address] [address] | + + + | Home Phone [...] Author + + + | Author | [facility] | | | and [place] | + + + | Organization | [facility] [...] + | Hector Garcia | ECON | [place] [address] | | + + + + + Care Team Providers + +------+ + | Care Rf Design Engineer Name | Role | Phone | [...] | | | | | | | ND REVISE | | | | | | [...] + + + + | 03/10/ | Anesthesia | [facility] | Christian Orosco | | | 2018 | Event | [facility] | MD [address] | | | | | [address] | [address] [place] | | | | | [place], [place] | [place] [address] | | | | | [address] | | | | | | [phone] | | | +--------+ + + + + Anesthesia Record + + + + + | Procedure Name | Responsible | Anesthesia Start | Anesthesia Stop Time | | | Anesthesiologist | Time | | + + + + + | Left Carpal Tunnel | Christian Farnsworth | 03/10/18 1251 | 03/10/18 1326 | | Release (Left Wrist) | MD Ana Luisa | | | + + + + + +----+---+ + + | Da | T | Event | Comment | | te | i | | | | | m | | | | | e | | | +----+---+ + + | 06 | 1 | | | | /1 | 2 | | | | 5/ | 3 | | | | 20 | 5 | | | | 18 | | | | +----+---+ + + | | 1 | An Checkout | Pre-use anesthesia machine/equipment checkout. | | | 2 | | | | | 5 | | | | | 0 | | | +----+---+ + + | | 1 | An Start | Reassessment prior to anesthesia induction/procedure. | | | 2 | | | | | 5 | | | | | 1 | | | +----+---+ + + | | 1 | Preoxygenat | | | | 2 | ed | | | | 5 | | | | | 3 | | | +----+---+ + + | | 1 | Antibiotic | | | | 2 | Given | | | | 5 | | | | | 5 | | | +----+---+ + + | | 1 | Pre-Procedu | | | | 3 | ral Timeout | | | | 0 | Completed | | | | 4 | | | +----+---+ + + | | 1 | First | | | | 3 | Inc/Proc St | | | | 0 | | | | | 5 | | | +----+---+ + + | | 1 | an stop | | | | 3 | data | | | | 1 | | | | | 8 | | | +----+---+ + + | | 1 | An Stop | Patient handed off to recovery nurse. | | | 2 | | | | | 6 | | | +----+---+ + + +------+ | Meds | +------+ + + + | Name | Total | + + + | lidocaine 2% | 100 mg | + + + | propofol | 70 mg | + + + | propofol | 143.17 mg | + + + | ceFAZolin (ANCEF, KEFZOL) 100 | 1 g | | mg/mL IV syringe 1 g | | + + + | lactated ringers (LR) infusion | 500 mL | + + + + + | Name | + + | N2O Flow Rate (L/Min) | + + | O2 Flow Rate (L/Min) | + + | Insp O2 | + + | Exp SEV | + + | Air Flow Rate (L/Min) | + + + + | No blood administrations on file. | + + +--------+ + + + | Type | Details | Placement | Removal | +--------+ + + + | Periph | 03/10/18; 1252; Right; Forearm; | 03/10/18 1252 by | 03/10/18 1348 by | | eral | [id number] catheter system; | Mimi Vallecillo, | Vivienne Reza, | | IV | 18 gauge, 1 1/4 in length; | RN | RN | | | distraction, intradermal | | | | | injection, tolerated well; no | | | | | longer indicated, removed per | | | | | policy/procedure, catheter/device | | | | | intact; 03/10/18; 1348 | | | +--------+ + + + | Read | 03/10/18; 1307; Left; hand; | 03/10/18 1307 by | 03/10/18 1349 by | | only - | expected removal post discharge; | Ileana Hinton RN | Vivienne Reza, | | | 03/10/18; 1349 | | RN | | Incisi | | | | | on | | | | +--------+ + + + documented in this encounter Social History + + + +--------+------+ | [...] + + documented as of this encounter [place] Notes Anesthesia Postprocedure Evaluation - Christian Orosco MD - 03/10/2018 3:38 PM PDTFo rmatting of this note might be different from the original. ANESTHESIA POSTANESTHESIA EVALUATION Mani Garcia 52 y.o. male 1965 [id number] Procedure(s) Left Carpal Tunnel Release (Left Wrist) Cooperates? Yes Mental Status Performs simple tasks. Respiratory Satisfactory - Airway patent (self maintained). Cardiovascular Satisfactory - Blood pressure and heart rate acceptable Temperature Satisfactory Pain Satisfactory N/V Control Satisfactory Hydration Satisfactory - No signs of dehydration Complications None apparent Vitals: 03/10/18 1229 03/10/18 1326 03/10/18 1330 BP: (!) 153/118 132/90 142/86 Pulse: 99 88 87 Temp: 36.5 C (97.7 F) 37.1 C (98.8 F) Resp: 16 16 12 SpO2: 96% 98% 98% Electronically signed by Christian Orosco MD 03/10/2018 15:38 [facility] HEALTHElectronically signed by Christian Orosco MD a t 03/10/2018 3:38 PM PDTAnesthesia Preprocedure Evaluation - Christian Orosco MD - 1:00 PM PDT ANESTHESIA PREANESTHESIA EVALUATION Mani Garcia 52 y.o. male 1965 [id number] Procedure(s): Left Carpal Tunnel Release (Left Wrist) Medical history, anesthesia, medications, allergy, NPO status verified histories reviewed. Review of Systems / Med History Anesthesia History TIVA in 2017 for colonoscopy with no issues.. Cardiovascular (+) hypertension Pulmonary (+) smoking history (25 pack years; current)(+) sleep apnea (Noncompliant CPAP): known Neurology (+) TIA, CVA Psychology (+) depression, substance abuse Gastrointestinal/Hepatic (+) hyperlipidemia Cancer (+) prostate cancer Physical Exam Airway MP II, TM >3 FB, Mouth opening >2 FB. Neck: full ROM, extends >30 degrees. Dental Aruna ssly normal except where noted below.; (+) Chipped/Broken teeth, missing teeth and Poor dentition. CV Rhythm regular. Rate Normal. (-) murmur. Pulm Clear to auscultation bilaterally. Neuro Grossly normal. Anesthesia Plan ASA 3 (NAHUN (Noncompliant CPAP), Smoker, h/o CVA) Type: MAC. Induction: Intravenous. Potential problems: None anticipated. Monitors: Standard ASA monitors. Consent statement:Anesthetic plan, alternatives, risks and benefits discussed with patient. Risks discussed included (but were not limited to): perioperative CV events, sore throat, h eart problems, respiratory events, nausea, . Consenting person understands and agrees to proceed. Electronically Signed by: Christian Orosco MD ESig date/time: 03/10/2018 13:21 documented in t his encounter Plan of Treatment Not on filedocumented as of this encounter Visit Diagnoses Not on filedocumented in this encounter Administered Medications + +--------+ +------+------+------+ | Medication Order | MAR | Action | Dose | Rate | Site | | | Action | Date | | | | + +--------+ +------+------+------+ | ceFAZolin (ANCEF, KEFZOL) 100 | Given | 03/10/20 | 1 g | | | | mg/mL IV syringe 1 g 1 g, | | 18 12:55 | | | | | Intravenous, Administer over 30 | | PM PDT | | | | | Minutes, Prior to Incision, | | | | | | | Starting 03/10/18 at 0253, For | | | | | | | 1 dose, administer within 1 hour | | | | | | | of incision, Pre-op, | | | | | | | Indications: Surgical Prophylaxis | | | | | | + +--------+ +------+------+------+ +---+---+ | | | +---+---+ + +-------+ +--------+---+---+ | lidocaine (PF) 2% injection | Given | 03/10/20 | 100 mg | | | | Intravenous, PRN, Starting Fri | | 18 12:53 | | | | | 18 at 1253, Anesthesia | | PM PDT | | | | | Intra-op | | | | | | + +-------+ +--------+---+---+ +---+---+ | | | +---+---+ + +-------+ +-------+---+---+ | propofol (DIPRIVAN) injection | Given | 03/10/20 | 20 mg | | | | Intravenous, PRN, Starting Fri | | 18 12:57 | | | | | 03/10/18 at 1253, Anesthesia | | PM PDT | | | | | Intra-op | | | | | | + +-------+ +-------+---+---+ +-------+ +-------+---+---+ | Given | 20 | 50 mg | | | | | 18 12:53 | | | | | | PM PDT | | | | +-------+ +-------+---+---+ +---+---+ | | | +---+---+ + + + + +-------+---+ | propofol (DIPRIVAN) injection | Rate/Dos | 03/10/20 | 80 | 41.9 | | | Intravenous, CONTINUOUS PRN, | e Change | 18 12:57 | mcg/kg/m | mL/hr | | | Starting 03/10/18 at 1253, | | PM PDT | in | | | | Anesthesia Intra-op | | | | | | + + + + +-------+---+ +---------+ + +-------+---+ | New Bag | 03/10/20 | 50 | 26.2 | | | | 18 12:53 | mcg/kg/m | mL/hr | | | | PM PDT | in | | | +---------+ + +-------+---+ +---+---+ | | | +---+---+ documented in this encounter"
--- OUTSIDE RECORDS SUMMARY | ~2020-06-06 | XMS | Encounter Summary ---
Demographics + + + | Address | NEED ADDRESS | | | [place] [address] | + + + | Home Phone [...] + | Hector Garcia | ECON | [place] [address] | | + + + + + Care Team Providers + +------+ + | Care Mud Jack Operator Name | Role | Phone | [...] | Specialty | Physical | Diagnoses | Chauncey, | Leidy, | | | Services | Medicine and | Peripheral | Aryan Velásquez MD | Vinny Peterson MD | | | Required | Rehabilitatio | neuropathy | [address] | [address] | | | | n | | [address] [place] | | | | | | [place] | [place], [place] | | | | | | [place], [place] | [address] Phone: | | | | | | [address] | [phone] | | | | | | Phone: | Fax: | | | | | | [phone] | [phone] | | | | | | Fax: | | | | | | | [phone] | | +--------+ + + + + + Reason for Visit + + + | Reason | Comments | + + + | Numbness | To different extremities intermittently x few months | + + + | Prostate Cancer | Prostatectomy 08/01/14 | + + + Encounter Details +--------+---------+ + + + | Date | Type | Department | Care Team | Description | +--------+---------+ + + + | 10/03/ | Office | [facility] | Aryan Grossman, | Sprain of right | | 2015 | Visit | MEDICINE [facility] | [address] | elbow (Primary Dx); | | | | [place] [place], | [address] [place], | Place of occurrence, | | | | [place] [address] | [place] [address] | industrial places | | | | [phone] | [phone] | and premises; | | | | | | Nicotine addiction; | | | | | | Peripheral | | | | | | neuropathy; | | | | | | Depression; Prostate | | | | | | cancer (HCC); | | | | | | Essential | | | | | | hypertension | +--------+---------+ + + + Social History [...] + + + | Blood Pressure | 146/102 | 10/03/2014 11:02 AM | | | | | PST | | + + + + + | Pulse | 93 | 10/03/2014 10:48 AM | | | | | PST | | + + + + + | Temperature | 37 C (98.6 F) | 10/03/2014 10:48 AM | | | | | PST | | + + + + + | Respiratory Rate | 16 | 10/03/2014 10:48 AM | | | | | PST | | + + + + + | Oxygen Saturation | 97% | 10/03/2014 10:48 AM | | | | | PST | | + + + + + | Inhaled Oxygen | - | - | | | Concentration | | | | + + + + + | Weight | 92.7 kg (204 lb 4.8 | 10/03/2014 10:48 AM | | | | oz) | PST | | + + + + + | Height | 175.3 cm (5' 9") | 10/03/2014 10:48 AM | | | | | PST | | + + + + + | Body Mass Index | 30.17 | 10/03/2014 10:48 AM | | | | | PST | | + + + + + documented in this encounter Progress Notes Aryan Grossman MD - 10/03/2014 11:11 AM PSTFormatting of this note might be different f rom the original. Subjective: Patient ID: Mani Garcia is a 49 y.o. male. HPI Peripheral neuropathy, B Foot numbness for the last month or two. This is unchanged. This is constant. Prostate cancer, recent operative removal at [facility]. He has been followed with Dr Hawkins who sent him [place]. He has no energy, poor sleep etc. His urine flow is actually better. Th ere is no blood in the urine. He is seeing Urologist at [facility]. Arthralgias, Ankles, knees, Hands wrists, shoulders elbows and back. He is still smoking a 1/2 ppd. Shoulders ankles and knees seem to bother him the worst. He is not taking an antiinflammat ory for it. Naproxyn is taking the edge off of his joint pain. Depression and Anxiety, He is worried all the time about something. I'm not as depressed as I used to be" Some Fatigue. Moodiness, Some crying. Guilt. Denies HI or SI. He too k the lexapro in the past but him dizzy. He is doing better with the zoloft and is getting ready to up the dose. He is sleeping better now. He is drinking just a little. 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 He is "barely smoking marijuana" Nicotine addiction, He is feeling better and he now really wants to quit smoking. He is w illing to try the chantix at this point. PMH: HTN Hyperlipidemia Alcoholism PSH: Right thumb 2008 Lumbar Diskectomy 1992 Fhx: Mom 64 Ovarian Cancer Dad 50 of MS complications Sister 54, recurrent lymphoma,. First diagnosed with cancer in 40's Shx: Born in 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 [employer] Drinks 5 drinks of whisky [...] no joint swelling and No ar thralgias. Some joint pain Skin: Neg for color change,no [...] motion Skin, no gross lesions Assessment: 1. Sprain of right elbow naproxen (NAPROSYN) [address] of occurrence, industrial places and premises naproxen (NAPROSYN) 500 mg tablet 3. Nicotine addiction varenicline (CHANTIX STARTING MONTH ) 0.5 MG X 11 & 1 MG X 42 tab let 4. Peripheral neuropathy (HCC) Hemoglobin A1C 5. Depression 6. Prostate cancer (HCC) 7. Essential hypertension Plan: He looks and feels fine post TURP. Chantix trial. SE's discussed again. RTC 3 months. Refer to neurology. documented in this encounter Miscellaneous Notes Miscellaneous - DOMINGO PRICE - 10/01/2014 12:00 AM PST documented in this encounter Plan of Treatment + + +--------+ + + | Name | Type | Priori | Associated Diagnoses | Order Schedule | | | | ty | | | + + +--------+ + + | Ambulatory referral | Outpatient | Routin | Peripheral | Ordered: 10/03/2014 | | to Neurology | Referral | e | neuropathy | | + + +--------+ + + documented as of this encounter Results Hemoglobin A1C (10/03/2014 11:51 AM PST) + +-------+ + + + | Component | Value | Ref Range | Performed | Pathologist | | | | | At | Signature | + +-------+ + + + | Hemoglobin | 5.1 | 4.3 - 6.0 % | [facility] | | | A1c | | | [facility] | | | | | | [facility] | | | | | | [facility] - | | | | | | LABORATORY | | + +-------+ + + + | Estimated | 100 | mg/dL | [facility] | | | Average | | | [facility] | | | Glucose | | | MEDICAL | | | [...] + | [facility] | [address] | [place] | [phone] | | [facility] | | [address] | | | - LABORATORY | | | | + + + + + | [facility] | [address] | [place] | | | [facility] | | [address], [facility] | | | - LABORATORY | | | | + + + + + documented in this encounter Visit Diagnoses + + | Diagnosis | + + | Sprain of right elbow - Primary Sprain and strain of unspecified site of elbow and | | forearm | + + | Place of occurrence, industrial places and premises | + + | Nicotine addiction Tobacco use disorder | + + | Peripheral neuropathy Unspecified hereditary and idiopathic peripheral neuropathy | + + | Depression Depressive disorder, not elsewhere classified | + + | Prostate cancer (HCC) Malignant neoplasm of prostate | + + | Essential hypertension Unspecified essential hypertension | + + documented in this encounter
--- OUTSIDE RECORDS SUMMARY | ~2020-06-06 | XMS | Encounter Summary ---
Demographics + + + | Address | [address] | | | [place] [facility] [place] [address] | + + + | Home Phone | | + + + | Preferred Language | Unknown | + + + | Marital Status | Single | + + + | Caodaism Affiliation | CHR | + + + | Race | White | + + + | Ethnic Group | Not or | + + + Author + + + | Author | [facility] | + + + | Organization | [facility] | + + + | Address | Unknown | + + + | Phone | Unavailable | + + + Support + + +---------+ + | Name | Relationship | Address | Phone | + + +---------+ + | Servando Boyer | ECON | Unknown | | + + +---------+ + Care Team Providers + +------+ + | Care Clinical Support Associate Name | Role | Phone | + +------+ + | Aryan Grossman MD | PCP | | + +------+ + Encounter Details +--------+ + + + + | Date | Type | Department | Care Team | Description | +--------+ + + + + | 07/12/ | Hospital | LAB SURGICAL | | | | 2013 | Encounter | PATHOLOGY [address] | | | | [address] | | | | | | [place], [place] | | | | | | [address] | | | +--------+ + + + [...] at Time of Discharge + + + +---------+--------+ + | Medication | Sig | Dispensed | Refills | Start | End Date | | | | | | Date | | + + + +---------+--------+ + | naproxen 500 mg | Take 500 mg by mouth | | 0 | | | | oral tablet | two times daily. | | | | | + + + +---------+--------+ + documented as of this encounter Plan of Treatment Not on filedocumented as of this encounter Visit Diagnoses Not on filedocumented in this encounter"
--- OUTSIDE RECORDS SUMMARY | ~2020-06-06 | XMS | Encounter Summary ---
Demographics + + + | Address | NEED ADDRESS | | | [place] [address] | + + + | Home Phone [...] + | Author | [facility] | | | and [place] | + + + | Organization | [facility] | | | and [place] | + + + | Address | Unknown | + + + | Phone | Unavailable | + + + Support + + + + + | Name | Relationship | Address | Phone | + + + + + | Servando Boyer | ECON | Unknown | | + + + + + | eHctor Garcia | ECON | [place] [address] | | + + + + + Care Team Providers + +------+ + | Care Gas Generator Operator Name | Role | Phone | [...] Closed | | Radiology | Diagnoses | Vaiva Vo, | [facility] | | | | | Prostate | Zeeshan Powell MD | Medicine | | | | | cancer (HCC) | [address] | [address] | | | | | Procedures | [address] [place] | [place], | | | | | [place] Bone | [place], [place] | [place] | | | | | Scan Whole | [address] | [address] | | | | | Body | Phone: | Phone: | | | | | | [phone] | [phone] | | | | | | Fax: | Fax: | | | | | | [phone] | [phone] | +--------+--------+ + + + + Diagnostic/Screening (Routine) +--------+--------+ + + + + | Status | Reason | Specialty | Diagnoses / | Referred By | Referred To | | | | | Procedures | Contact | Contact | +--------+--------+ + + + + | Closed | | Radiology | Diagnoses | Vaiva Vo, | [facility] [address] | | | | | Prostate | Zeeshan Powell MD | [address] | | | | | cancer (HCC) | [address] | [place], | | | | | Procedures | [place] | [place] [address] | | | | | CT Abdomen | [place], [place] | Phone: | | | | | Pelvis w | [address] | [phone] | | | | | Contrast | Phone: | Fax: | | | | | [address] | [phone] | [phone] | | | | | SCAN,ABDOMEN | Fax: | | | | | | T AND | [phone] | | | | | | PELVIS,W | | | | | | | CONTRAST | | | +--------+--------+ + + + + Reason for Visit + +--------+ + | Reason | Onset | Comments | | | Date | | + +--------+ + | Results, Pathology | 02/15/ | | | | 2013 | | + +--------+ + Encounter Details +--------+ + + + + | Date | Type | Department | Care Team | Description | +--------+ + + + + | 02/15/ | Telephone | [facility] | Zeeshan Sotelo, | Results, Pathology | | 2013 | | [address] | MD [address] | | | | | [place] | [place] | | | | | [address] | [address] | | | | | [phone] | | | +--------+ + + + [...] Telephone Encounter - Ileana Castillo RN - 02/15/2014 12:06 PM PDTPATIENT SCHEDULED FOR CT AND BONE SCAN ON 02/21/14 WITH A 9:00 CHECK IN. THEY WILL DO INJECTION AT 9:30, CT AT 10 :00 AND HE WILL COME BACK AT 12:00 FOR THE BONE SCAN. ADVISED TO GET BLOOD WORK (BUN AND CR EATININE) DONE PRIOR, WELL REGIONAL TANKER TRUCK DRIVER CONTRAST DRINKS FROM THE IMAGING DEPARTMENT AND THE Y WILL TELL HIM WHEN HE NEEDS TO DRINK THOSE PRIOR TO THE CT. ADVISE TO HAVE NO SOLID FOODS 4 HOURS PRIOR TO 9:30 ON 02/21/14. HE WILL STOP BY THE OFFICE AND REGIONAL TANKER TRUCK DRIVER THE BOOK AND SCHE DULE A FOLLOW UP WITH DR SOTELO TO DISCUSS TREATMENT OPTIONS. elephone Encounter - Zeeshan Sotelo MD - 2013 10:07 AM PDTI called Mani today and notified him of his prostate biopsy result. Unfortunately, his biopsy demonstrates prostatic adenocarcinoma Reynolds score 7, in all 12 biopsies. We discussed Elroy scoring and the significance of Reynolds score 7 tumor. We discussed my concerns about his high PSA of 75, and the high likelihood of extra prostat ic disease. Alli nomograms would suggest an 11% chance of organ confined disease, 40% risk of extrapr ostatic extension, 19% chance of seminal vesicle involvement, 20% chance of lymph node invol vement. We discussed the full range of treatment options for prostate cancer, including seeking a s econd opinion, active surveillance, hormone suppression therapy, HIFU, XRT, brachytherapy, cryotherapy, radical retropubic prostatectomy and laparoscopic, robotic assisted prostatecto my. I answered his questions. I told them that if he has extraprostatic disease, therapy w ith curative intent may not be warranted. He needs a bone scan and CT of the abdomen and pelvis with contrast for evaluation of metas tatic disease. I asked him to come to the office to strip picker and read the book "100 questions and answers a bout prostate cancer." I asked him to make an appointment to see me again soon so that we c an discuss his treatment options in detail again. He indicates his understanding, and indicates he will be compliant with our recommendations for follow up. Cristina durán in this encounter Plan of Treatment Not on filedocumented as of this encounter Results NM Bone Scan Whole [...] | Procedure Note | + + | Jhonathan Marie Results In - 02/21/2014 1:11 PM PDT [...] + | MISCELLANEOUS LAB | | | [phone] | + +---------+ + + | MISCELANIOUS LAB | | | [phone] | + +---------+ + + CT Abdomen Pelvis w Contrast (02/21/2014 10:24 [...] | represent asmall cyst.Dictated and Signed by: Atnonio Waite MD Electronically | | signed: 02/21/2014 [...] + | MISCELLANEOUS LAB | | | [phone] | + +---------+ + + | MISCELANIOUS LAB | | | [phone] | + +---------+ + + Creatinine (02/19/2014 3:15 PM PDT) + +-------+ + + + | Component | Value | Ref Range | Performed | Pathologist | | | | | At | Signature | + +-------+ + + + | Creatinine | 0.92 | 0.60 - 1.30 | [facility] | | | | | mg/dL | [facility] | | | | | | MEDICAL | | | | | | CENTER - | | | | | | LABORATORY | | + +-------+ + + + | eGFR, | >60 | >=60 | [facility] | | | non- | | mL/min/1.73m2 | [facility] | | | [place] | | | MEDICAL | | | [...] + | [facility] | [address] | [place] | [phone] | | [facility] | | [address] | | | - LABORATORY | | | | + + + + + | [facility] | [address] | [place], [place] | | | [facility] | | [id number] [place] [address] | | | - LABORATORY | | | | + + + + + BUN (02/19/2014 3:15 PM PDT) + +-------+ + + + | Component | Value | Ref Range | Performed | Pathologist | | | | | At | Signature | + +-------+ + + + | BUN | 18 | 7 - 18 mg/dL | [facility] [...] | [address] | [place] | [phone] | | [facility] | | [address] | | | - LABORATORY | | | | + + + + + | [facility] | [address] | [place] | | | [facility] | | [address], [facility] | | | - LABORATORY | | | | + + + + + documented in this encounter Visit Diagnoses + + | Diagnosis | + + | Prostate cancer (HCC) - Primary Malignant neoplasm of prostate | + + documented in this encounter
--- OUTSIDE RECORDS SUMMARY | ~2020-06-06 | XMS | Encounter Summary ---
Demographics + + + | Address | NEED ADDRESS | | | [place] [address] | + + + | Home Phone [...] Hector Garcia | ECON | [place] [address] | | + + + + + Care Team Providers + +------+ + | Care Crm Administrator Name | Role | Phone | + [...] | | | 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, PROBATE LAWYER | [facility] | | | | | cancer (HCC) | [address] | [place] | | | | | Procedures | [facility] | [facility] | | | | | CT Chest | [address] | CENTER [address] | | | | | Abdomen | [place], [place] | [place] | | | | | Pelvis w | [address] | [place], | | | | | Contrast | Phone: | [place] [address] | | | | | | [phone] | Phone: | | | | | | Fax: | [phone] | | | | | | [phone] | Fax: | | | | | | | [phone] | +--------+--------+ + + + + Reason [...] + + | 12/17/ | Hospital | [facility] | Simran Osman, | Prostate cancer | | 2017 | Encounter | MED CTR CT [address] | PROBATE LAWYER [address] [facility] | ([facility]) | | | | [place], | [facility] | | | | | [place] [address] | [place], [place] | | | | | [phone] | [address] | | | | | | [phone] | | | | | | | [...] | CT CHEST ABDOMEN | Routin | 12/17/2016 | Prostate cancer | Results for this | | PELVIS W CONTRAST | e | 1:43 PM | (HCC) | procedure are in the | | | | PDT | | results section. | + +--------+ + + + documented in this encounter Results CT Chest Abdomen Pelvis w Contrast (12/17/2016 1:43 PM PDT) + + | Specimen | + + | | + + + + | Addenda | + + | Addendum by Horace Galvez MD on 12/17/2016 2:43 PM There is a stable 9 mm nodule | | of the right adrenal. Dictated and Signed by: Horace Galvez MD Electronically | | signed: 12/17/2016 2:40 PM | + + + + + | Narrative | Performed At | + + + | CT CHEST ABDOMEN PELVIS W CONTRAST 12/17/2016 1:28 PM HISTORY: | [facility] | | Prostate cancer with biochemical recurrence, now with bone pain, | | | assess for metastatic disease. COMPARISON: Multiple priors. | | | PROTOCOL: Axial images of the chest, abdomen, and pelvis were obtained | | | after uneventful administration of 90 mL Omnipaque 350 and oral | | | contrast. Coronal and sagittal reformations were acquired. CHEST | | | FINDINGS: Neck base is normal. The heart is of normal size. The | | | ascending thoracic aorta is ectatic and measures 4.2 cm. There is | | | mild atherosclerosis of the left subclavian artery origin. The | | | pulmonary arteries are unremarkable. SVC is normal. There is a | | | borderline lymph node in the AP window measuring 9 mm short axis | | | (image 33). The kala are normal. Prominent but benign-appearing lymph | | | nodes nodes are in the axilla. Trachea and esophagus are normal. | | | There is an azygos lobe of the right lung, a normal variant. There is | | | a stable 5 mm nodule along the left interlobar fissure dating back to | | | 07/18/2014 that is likely to be benign (image 46). | | | ABDOMEN/PELVIS FINDINGS: A 0.7 cm cyst is in the left hepatic lobe | | | that is stable. The gallbladder is normal. Biliary ducts are | | | unremarkable. The spleen is unremarkable. The pancreas | | | demonstrates normal parenchyma and a normal pancreatic duct. Adrenal | | | glands are normal. The right kidney and visualized ureter are | | | normal. The left kidney and visualized ureter are normal. | | | Stomach, small bowel, and terminal ileum are normal. The appendix has | | | a normal appearance. Colon is unremarkable. There is mild | | | atherosclerosis of the aorta. Mild atherosclerosis is seen in the | | | left common iliac artery. There is no significant abnormality in the | | | portal veins, mesenteric veins, or systemic veins. No enlarged | | | lymph nodes are visualized within the omentum or retroperitoneum. | | | There is no evidence for ascites or free air. Bladder is normal. | | | Multiple clips are in the lower pelvis consistent with previous | | | prostate resection. There is no evidence for tumor recurrence in the | | | prostate bed. BODY WALL FINDINGS: Moderate bilateral inguinal | | | hernias containing fat are seen. There is mild atherosclerosis of the | | | thoracic spine. Moderate atherosclerosis is noted of the lower | | | lumbar spine. Severe disc narrowing is at L4-5. Moderate disc | | | narrowing is at L5-S1. Vacuum disc phenomenon are present at these 2 | | | levels. IMPRESSION - No definite evidence for metastatic disease | | | to the chest, abdomen, or pelvis. Previous prostatectomy with no | | | evidence for local tumor recurrence. Stable 5 mm nodule along the | | | left interlobar fissure dating back to 07/18/2014 that is likely to | | | be benign. Dictated and Signed by: Horace Galvez MD | | | Electronically signed: 12/17/2016 2:36 PM | | + + + + + | Procedure Note | + + | Frank, Rad Results In - 12/17/2016 2:[address] CHEST ABDOMEN PELVIS W CONTRAST | | 12/17/2016 1:28 PMHISTORY: Prostate cancer with biochemical recurrence, now with bone | | pain, assessfor metastatic disease.COMPARISON: Multiple priors.PROTOCOL: Axial images of | | the chest, abdomen, and pelvis were obtained afteruneventful administration of 90 mL | | Omnipaque 350 and oral contrast. Coronal andsagittal reformations were acquired.CHEST | | FINDINGS:Neck base is normal.The heart is of normal size. The ascending thoracic aorta | | is ectatic andmeasures 4.2 cm. There is mild atherosclerosis of the left subclavian | | arteryorigin. The pulmonary arteries are unremarkable. SVC is normal.There is a | | borderline lymph node in the AP window measuring 9 mm short axis(image 33). The kala are | | normal. Prominent but benign-appearing lymph nodesnodes are in the axilla. Trachea and | | esophagus are normal.There is an azygos lobe of the right lung, a normal variant. There | | is a stable 5mm nodule along the left interlobar fissure dating back to 07/18/2014 that | | islikely to be benign (image 46).ABDOMEN/PELVIS FINDINGS:A 0.7 cm cyst is in the left | | hepatic lobe that is stable. The gallbladder isnormal. Biliary ducts are | | unremarkable.The spleen is unremarkable. The pancreas demonstrates normal parenchyma and | | anormal pancreatic duct. Adrenal glands are normal.The right kidney and visualized | | ureter are normal.The left kidney and visualized ureter are normal.Stomach, small bowel, | | and terminal ileum are normal. The appendix has a normalappearance. Colon is | | unremarkable.There is mild atherosclerosis of the aorta. Mild atherosclerosis is seen in | | theleft common iliac artery. There is no significant abnormality in the portalveins, | | mesenteric veins, or systemic veins. No enlarged lymph nodes are visualized within the | | omentum or retroperitoneum.There is no evidence for ascites or free air.Bladder is | | normal.Multiple clips are in the lower pelvis consistent with previous | | prostateresection. There is no evidence for tumor recurrence in the prostate bed.BODY | | WALL FINDINGS:Moderate bilateral inguinal hernias containing fat are seen. There is | | mildatherosclerosis of the thoracic spine. Moderate atherosclerosis is noted of thelower | | lumbar spine. Severe disc narrowing is at L4-5. Moderate disc narrowing isat L5-S1. | | Vacuum disc phenomenon are present at these 2 levels.IMPRESSION -No definite evidence | | for metastatic disease to the chest, abdomen, or pelvis.Previous prostatectomy with no | | evidence for local tumor recurrence.Stable 5 mm nodule along the left interlobar fissure | | dating back to 07/18/2014that is likely to be benign.Dictated and Signed by: Horace | | MD Lenny Electronically signed: 12/17/2016 2:36 PM | | | |The right kidney and visualized ureter are normal. | | | |The left kidney and visualized ureter are normal. | | | |Stomach, small bowel, and terminal ileum are normal. The appendix has a normal | |appearance. Colon is unremarkable. | | | |There is mild atherosclerosis of the aorta. Mild atherosclerosis is seen in the | |left common iliac artery. There is no significant abnormality in the portal | |veins, mesenteric veins, or systemic veins. | | | |No enlarged lymph nodes are visualized within the omentum or retroperitoneum. | | | |There is no evidence for ascites or free air. | | | |Bladder is normal. | | | |Multiple clips are in the lower pelvis consistent with previous prostate | |resection. There is no evidence for tumor recurrence in the prostate bed. | | | |BODY WALL FINDINGS: | |Moderate bilateral inguinal hernias containing fat are seen. There is mild | |atherosclerosis of the thoracic spine. Moderate atherosclerosis is noted of the | |lower lumbar spine. Severe disc narrowing is at L4-5. Moderate disc narrowing is | |at L5-S1. Vacuum disc phenomenon are present at these 2 levels. | | | |IMPRESSION - | |No definite evidence for metastatic disease to the chest, abdomen, or pelvis. | | | |Previous prostatectomy with no evidence for local tumor recurrence. | | | |Stable 5 mm nodule along the left interlobar fissure dating back to 07/18/2014 | |that is likely to be benign. | | | |Dictated and Signed by: Horace Galvez MD | | Electronically signed: 12/17/2016 2:36 PM | + + + +---------+ + [...] iohexol (OMNIPAQUE 350) 350 | Given | 12/18/19 | 90 mLs | | | | mg/mL injection 90 mL 90 mL, | | 17 1:43 | | | | | Intravenous, ONCE PRN, Other, | | PM PDT | | | | | Starting 12/17/16 at 1343, For | | | | | | | 1 dose, Cat Scanner | | | | | | + +--------+ +--------+------+------+ +---+---+ | | | +---+---+ documented in this encounter"
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
--- OUTSIDE RECORDS SUMMARY | ~2020-06-06 | XMS | Encounter Summary ---
Demographics + + + | Address | NEED ADDRESS | | | [place] [address] | + + + | Home Phone | | + + + | Preferred Language | Unknown | + + + | Marital Status | Single | + + + | Hinduism Affiliation | Unknown | + + + [...] Hector Garcia | ECON | [place] [address] | | + + + + + Care Team Providers + +------+ + | Care Mobile Mechanic Name | Role | Phone | + +------+ + | Loi Frausto PA-C | PCP | | + +------+ + Reason for Visit + +--------+ + | Reason | Onset | Comments | | | Date | | + +--------+ + | Appointment | 02/08/ | | | | 2018 | | + +--------+ + Encounter Details +--------+ + + + + | Date | Type | Department | Care Team | Description | +--------+ + + + + | 02/08/ | Telephone | [facility] | Remberto Hurst, | Appointment | | 2018 | | ORTHOPEDIC SURGERY | [address] [facility] | | | | | [address] | [place] | | | | | [place] | [address] | | | | | [address] | | | | | | [phone] | | | +--------+ + + + [...] this encounter Miscellaneous Notes Telephone Encounter - Myrna Rankin Cert MA - 02/13/2018 2:56 PM PDTDonkarina is s cheleslieled for surgery on 03/10/2018. A preop appointment was made on 03/06/2018. elephone Encounter - Yessy Saul - 02/08/2018 10:31 AM PDTPatient called wanted to schedule surgery for l eft hand. Please advise and call [phone]. documented in this encounter Plan of Treatment Not on filedocumented as of this encounter Visit Diagnoses Not on filedocumented in this encounter"
--- OUTSIDE RECORDS SUMMARY | ~2020-06-06 | XMS | Encounter Summary ---
Demographics + + + | Address | [address] | | | [place] [address] | + + + | Home Phone [...] + + | Author | [facility] | + + + | Organization | [facility] | + + + | Address | Unknown | + + + | Phone | Unavailable | + + + Support + + +---------+ + | Name | Relationship | Address | Phone | + + +---------+ + | Servando Boyer | ECON | Unknown | | + + +---------+ + Care Team Providers + +------+ + | Care Machine Molder Squeeze Name | Role | Phone | + +------+ + | Aryan Grossman MD | PCP | | + +------+ + Reason for Visit + +--------+ + | Reason | Onset | Comments | | | Date | | + +--------+ + | Telephone follow-up | 03/01/ | | | | 2017 | | + +--------+ + Encounter Details +--------+ + + + + | Date | Type | Department | Care Team | Description | +--------+ + + + + | 03/01/ | Telephone | Urology at [facility] | Simran Osman, | Telephone follow-up | | 2018 | | [address] | [facility] [address] [facility] | | | | | Mailcode: CH10U | [facility] | | | | | [facility] | [place], [place] | | | | | and Healing, | [address] | | | | | [facility] | [phone] | | | | | Floor [place], [place] | | | | | | [address] | | | | | | [phone] | | | +--------+ + + + [...] Notes Telephone Encounter - Papi Snyder - 03/01/2018 9:45 AM PDTMrRuben Garcia called back. He sa ys he is seeing a urologist at [facility] in [place], [place]. He is receiving androgen depri vation therapy (ADT) as recommended. 9 :52 AM PDTTelephone Encounter - Papi Snyder - 03/01/2018 9:35 AM PDTI called on 8 at 9:35 AM and left a voice message for Mr. Garcia to contact us at [phone]. I am inquiring into if he is still getting treatment in his area for his prostate cancer an d follow ups. documented in this encoun ter Plan of Treatment Not on filedocumented as of this encounter Visit Diagnoses Not on filedocumented in this encounter"
--- OUTSIDE RECORDS SUMMARY | ~2020-06-06 | XMS | Encounter Summary ---
Demographics + + + | Address | NEED ADDRESS | | | [place] [address] | + + + | Home Phone | | + + + | Preferred Language | Unknown | + + + | Marital Status | Single | + + + | Taoist Affiliation | Unknown | + + + | Race | White | + + + | Ethnic Group | Not or | + + + Author + + + | Author | [facility] | | | and [place] | + + + | Organization | [facility] | | [...] Hector Garcia | ECON | [place] [address] | | + + + + + Care Team Providers + +------+ + | Care Blasting Contract Man Name | Role | Phone | + +------+ + | Aryan Grossman MD | PCP | | + +------+ + Reason for Visit +---------+--------+ + | Reason | Onset | Comments | | | Date | | +---------+--------+ + | Results | 02/22/ | | | | 2013 | | +---------+--------+ + Encounter Details +--------+ + + + + | Date | Type | Department | Care Team | Description | +--------+ + + + + | 02/22/ | Telephone | [facility] | Zeeshan Hawkins, | Results | | 2013 | | [address] | MD [address] | | | | | [place] | [place] | | | | | [address] | [id number] | | | | | [phone] | | | +--------+ + + + [...] Telephone Encounter - Ileana Castillo RN - 02/25/2014 6:12 PM PDTLETTER SENT TO YOLANDA Ibarra elephone Encount er - Zeeshan Hawkins MD - 02/22/2014 3:17 PM PDTI called Mani twice today, but he will n ot answer his phone, and he does not have voice mail to leave a message. Please notify patient that his bone scan is negative. I did not see evidence of metastatic disease on his CT scan. A recent note from Dr. Grossman indicates that Mani is moving to [place]. He needs to fol lowup with his urologist in [facility]. He is welcome to followup here for further counseling regarding treatment of his prostate c ancer as soon as possible. documented in this encounter Plan of Treatment Not on filedocumented as of this encounter Visit Diagnoses Not on filedocumented in this encounter"
--- OUTSIDE RECORDS SUMMARY | ~2020-06-06 | XMS | Encounter Summary ---
Demographics + + + | Address | [address] | | | [facility] [address] | + + + | Home Phone [...] Author + + + | Author | [facility] | + + + | Organization | [facility] [...] Team Providers + +------+ + | Care Videographer Name | Role | Phone | + +------+ + | Aryan Grossman MD | PCP | | + +------+ + Reason for Visit AUTH/CERT +--------+--------+ + + + + | Status | Reason | Specialty | Diagnoses / | Referred By | Referred To | | | | | Procedures | Contact | Contact | +--------+--------+ + + + + | Closed | | | | | | +--------+--------+ + + + + Encounter Details +--------+ + + + + | Date | Type | Department | Care Team | Description | +--------+ + + + + | 08/01/ | Hospital | [facility] [address] | Columba Kohli, | | | 2013 - | Encounter | [address] | [address] | | | | | [address] [facility] | [place] [address] | | | 08/04/ | | [facility], | [phone] | | | 2013 | | [place] [address] | | | | | | [phone] | | | +--------+ + + + [...] + + + | Blood Pressure | 140/81 | 08/04/2014 7:42 AM | | | | | PST | | + + + + + | Pulse | 65 | 08/04/2014 7:42 AM | | | | | PST | | + + + + + | Temperature | 36.7 C (98.1 F) | 08/04/2014 7:42 AM | | | | | PST | | + + + + + | Respiratory Rate | 16 | 08/04/2014 7:42 AM | | | | | PST | | + + + + + | Oxygen Saturation | 96% | 08/04/2014 7:42 AM | | | | | PST | | + + + + + | Inhaled Oxygen | - | - | | | Concentration | | | | + + + + + | Weight | 89.8 kg (197 lb 15.6 | 08/01/2014 8:19 AM | | | | oz) | PST | | + + + + + | Height | 175.3 cm (5' 9.02") | 08/01/2014 8:19 AM | | | | | PST | | + + + + + | Body Mass Index | 29.22 | 08/01/2014 8:19 AM | | | | | PST | | + + + + + documented in this encounter Discharge Summaries Wesley Parra MD - 08/04/2014 7:59 AM PSTFormatting of this note might be different f rom the original. [facility] UROLOGY DISCHARGE SUMMARY: Patient: Elvia Villalta Admission Date: 08/01/2014 Discharge Date: 08/04/2014 Attending Physician: Columba Kohli MD PCP: Aryan Grossman MD Service: [facility] Transplant Surgery Diagnoses Principal Final Diagnosis: 1. Prostate cancer Procedures Radical retropubic prostatectomy Brief Hospital Course Elvia Villalta is a 49 y.o. male with a history of prostate cancer who underwent the above procedure on 08/01/14. He tolerated the procedure well and recovered uneventfully on the war d post-operatively. He was discharged home on post-op day 3 at which time he was tolerating a regular diet, had good pain control on oral medications, and was ambulating without diffic ulty. Diet Regular Regular diet- There are no restrictions to your diet. You may eat or drink whatever you pr efer, though healthy food choices are recommended. Activity - No lifting more than 10 pounds for 6 weeks. This will allow your wound to heal as well as possible. - Avoid bearing down or straining with bowel movements. - Narcotics can cause constipation, so you may take negr-pol-ttzxntv stool softeners (Senok ot-S, Miralax, Colace) following the instructions on the box. Stop taking these pills if yo u are experiencing diarrhea. - No driving while on narcotics or with a urinary catheter in place. Follow Up Appointments: Urology Follow Up Please follow up with Columba Kohli MD in the Urology Clinic on 08/13/14 at 4:00 pm. Your appointment will be on the 10th floor of the [facility]. Please call the Urology Clinic at with any questions or concerns, or if you experience symptoms of fever; chills; severe nausea; vomiting; pain that does not go away wi th usual medication; drainage or bleeding from the incision site; sudden numbness, weakness, or difficulty speaking; or any other concerns. If after hours, call the Urology Resident o n call at . Destination: Destination: Home Condition on Discharge Good PCP:Aryan Grossman MD When: Please follow-up with your primary care physician as soon as possible to review new medications and recent interventions Medications: Current Discharge Medication List START taking these medications Details ciprofloxacin (CIPRO) 500 mg oral tablet Take 1 tablet by mouth two times daily for 3 days. Take 2 doses on the day before your follow-up appointment (one dose in morning and one does in evening), 2 doses on the day of your appointment, and 2 doses the day after. Qty: 6 tablet, Refills: 0 oxyCODONE, immediate release, 5 mg oral tablet Take 1 tablet by mouth every four hours as n eeded for moderate pain. Qty: 40 tablet, Refills: 0 senna-docusate (SENNA-S) 8.6-50 mg oral tablet Take 1 tablet by mouth two times daily. Qty: 40 tablet, Refills: 0 CONTINUE these medications which have NOT CHANGED Details aspirin EC 81 mg oral tablet,delayed release (DR/EC) Take by mouth. lisinopril 10 mg oral tablet Take 10 mg by mouth once daily. Indications: HYPERTENSION naproxen 500 mg oral tablet Take 500 mg by mouth two times daily. sertraline 50 mg oral tablet Take 50 mg by mouth once daily. STOP taking these medications bicalutamide 50 mg oral tablet Comments: Reason for Stopping: Condition On Discharge: Good Vital Signs at discharge as appropriate: BP: 140/81 mmHg (08/04/14 0742) Pulse: 65 (08/04/14 0742) Resp: 16 (08/04/14 0742) Weight: 89.8 kg (197 lb 15.6 oz) (08/01/14 0819) Discharge Patient To: Home Does patient have a planned readmission: No Discharge Summary Completed?: Yes. 08/04/2014 Discharging Provider: WESLEY PARRA MD Date Completed: 08/04/2014 Time Completed: 7:59 AM Discharging Attending: Columba Kohli MD [facility] [id number] [place] [address] documented in this en counter Discharge Instructions Instructions Rigo Qiu RN - 08/04/2014Patient Education Materials: Proctor care Additional Instructions: When should you call for help? Call 911 anytime you think you may need emergency care. For example, call if: You passed out (lost consciousness). You have severe trouble breathing. You have sudden chest pain and shortness of breath, or you cough up blood. Call your doctor now or seek immediate medical care if: Your catheter comes out. You have pain that spreads from your back to your side. Your catheter stops draining urine, or the amount of urine increases a lot. The urine in your catheter bag is cloudy or smells bad. You have signs of a blood clot, such as: Pain in your calf, back of the knee, thigh, or groin. Redness and swelling in your leg or groin. You have pain that does not get better after you take pain medicine. You have loose stitches, or your incision comes open. Bright red blood has soaked through the bandage over your incision. You have signs of infection, such as: Increased pain, swelling, warmth, or redness. Red streaks leading from the incision. Pus draining from the incision. Swollen lymph nodes in your neck, armpits, or groin. A fever. You are sick to your stomach or cannot keep fluids down. Watch closely for changes in your health, and be sure to contact your doctor if: You have trouble urinating after the doctor or nurse takes out your catheter. Your urine is red or brown. Urine leaks around the catheter all the time. You do not have a bowel movement after taking a laxative. Discharge Nurse: RIGO QIU RN Date: 08/04/2014 Discharge Time: 10:30 AM AttachmentsThe following attachments cannot be sent through Care Everywhere.PROSTATECTOMY: RADICAL RETROPUBIC : POST-OP (MAORI)documented in this encounter Medications at Time of Discharge + + + +---------+ + + | Medication | Sig | Dispensed | Refills | Start | End Date | | | | | | Date | | + + + +---------+ + + | naproxen 500 mg | Take 500 mg by mouth | | 0 | | | | oral tablet | two times daily. | | | | | + + + +---------+ + + | ciprofloxacin | Take 1 tablet by | 6 | 0 | 08/12/20 | | | (CIPRO) 500 mg oral | mouth two times | tablet | | 14 | 4 | | tablet | daily for 3 days. | | | | | | | Take 2 doses on the | | | | | | | day before your | | | | | | | follow-up | | | | | | | appointment (one | | | | | | | dose in morning and | | | | | | | one does in | | | | | | | evening), 2 doses on | | | | | | | the day of your | | | | | | | appointment, and 2 | | | | | | | doses the day after. | | | | | + + + +---------+ + + documented as of this encounter Progress Notes Wesley Parra MD - 08/04/2014 7:48 AM PSTFormatting of this note might be different f rom the original. Urology Progress Note Hospital Day: 3 Author: WESLEY PARRA MD Attending Physician: Columba Kohli MD Patient: ELVIA VILLALTA [id number] 24H events/Subjective: No acute events overnight. Pain well controlled. Tolerating PO intake. + flatus. Ambulatin g. Objective: Last Vitals: BP 102/71 | Pulse 61 | Temp 36.3 C (97.3 F) | RR 16 | Ht 1.753 m (5' 9.02" ) | Wt 89.8 kg (197 lb 15.6 oz) | SpO2 95% | BMI 29.22 kg/(m^2) 24 Hour Vital Min/Max: Systolic (24hrs), Av mmHg, Min:102 mmHg, Max:127 mmHg Diastolic (24hrs), Av mmHg, Min:61 mmHg, Max:71 mmHg Pulse Av Min: 61 Max: 74 Temp Av.6 C (97.9 F) Min: 36.3 C (97.3 F) Max: 36.9 C (98.4 F) Resp Av Min: 16 Max: 18 SpO2 Av % Min: 94 % Max: 98 % PO: 1800 Drain: 28 UOP: 1775 Medication: acetaminophen (TYLENOL) tablet 325-650 mg, 325-650 mg, oral, Q4H PRN aluminum-magnesium hydroxide-simethicone (MAALOX; MYLANTA) 200-200-20 mg/5 mL suspension 15 mL, 15 mL, oral, QID PRN artificial tears (hypromellose) (NATURES TEARS) 0.4 % ophthalmic drops 1 drop, 1 drop, Both Eyes, PRN bisacodyl (DULCOLAX) suppository 10 mg, 10 mg, rectal, BID PRN calcium carbonate chewable (TUMS) tablet 200 mg elemental, 500 mg total salt, oral, TID PRN HYDROmorphone (DILAUDID) injection 0.2-0.4 mg, 0.2-0.4 mg, intravenous, Q2H PRN lisinopril (PRINIVIL) tablet 10 mg, 10 mg, oral, DAILY ondansetron (ZOFRAN) injection 4 mg, 4 mg, intravenous, Q12H PRN oxybutynin (DITROPAN) tablet 5 mg, 5 mg, oral, TID PRN oxyCODONE (immediate release) (ROXICODONE) tablet 5-15 mg, 5-15 mg, oral, Q3H PRN phenol (CEPASTAT) lozenge 14.5 mg, 1 lozenge, oral, PRN polyethylene glycol (MIRALAX) powder 17 g, 17 g, oral, DAILY PRN polyethylene glycol (MIRALAX) powder 17 g, 17 g, feeding tube, DAILY PRN senna-docusate (SENOKOT S) 8.6-50 mg 1 tablet, 1 tablet, oral, BID sertraline (ZOLOFT) tablet 50 mg, 50 mg, oral, DAILY zolpidem (AMBIEN) tablet 5 mg, 5 mg, oral, HS PRN Labs: Recent Labs 08/02/1453408/02/14192908/03/14 0559 NA 137 -- 138 K 4.0 -- 4.0 CL 105 -- 106 BICARB 26 -- 27 BUN 15 -- 11 CR 0.91 -- 0.99 GLU 87 79 90 CA 8.1* -- 8.2* MG 1.3* -- 1.7* PO4 2.7 -- 3.0 Recent Labs 08/02/1435 08/03/14 0559 08/04/14 0553 WBC 8.22 9.35 6.77 HB 10.7* 10.5* 9.9* HCT 31.5* 30.0* 28.9* PLT 220 202 200 No results found for this basename: AST, ALT, TBILI, AP, ALB, TP, in the last 4320 hours No results found for this basename: culture Exam: Gen - Alert, conversant, NAD Pulm - No cough, stridor, or increased work of breathing. Abd - Soft, nontender, nondistended Inc - clean, dry, and intact - Proctor with clear urine VIKKI serosang Ext - Warm, well perfused; no cyanosis, clubbing or edema Neuro - Grossly intact; no focal abnormalities Assessment and Plan: Elvia Villalta is a 49 y.o. male who is POD# 3 s/p RRP. Doing well. - VIKKI removed - continue regular diet, PO meds, ambulation, IS, etc - Proctor teaching this morning - home today - f/u 08/[address] Kohli for proctor removal and staple removal Wesley Parra MD Resident - Department of Urology Pager #[phone] amDe MD - 08/03/2014 7:32 AM PSTUrology Progress Note ID: 49 yo male with past medical history significant for prostate cancer now s/p open retro pubic radical prostatectomy. S: Pain controlled this AM. Has been tolerating a diet. Passing gas. No BM's yet. O: Blood pressure 98/59, pulse 78, temperature 36.7 C (98.1 F), resp. rate 18, height 1 .753 m (5' 9.02"), weight 89.8 kg (197 lb 15.6 oz), SpO2 90.00%. Gen: alert, oriented, in no acute distress Abd: soft, appropriately tender, midline incision covered with steri-strips, well-approxima luis armando, clean/dry/intact, drain in place with serosanguinous output : proctor to gravity draining clear yellow urine Creatinine 0.99 H/H: 10.5/30 (10.7/31.5) I/O: 1840 PO 1745 IV 3500 U/O 65 Drain A/P: 49 yo male with PMHx significant for prostate cancer now POD#2 s/p open RPP. - Pain control - Ambulate up OOB at least TID today - Catheter teaching with nursing - Regular diet - SLIV - Drain out before D/C - D/C tomorrow De Huff MD Pager [phone] signed by De Huff MD at 08/03/2014 4:23 PM Maldonado Day MD - 08/02/2014 7:40 AM PSTUrology Progress Note ID: 49 yo male with past medical history significant for prostate cancer now s/p open retro pubic radical prostatectomy. S: Having some issues with pain control this AM. Otherwise no complaints. No fevers/chill s. We talked about bracing with a pillow when he coughs. O: Blood pressure 97/56, pulse 85, temperature 36.6 C (97.9 F), resp. rate 16, height 1 .753 m (5' 9.02"), weight 89.8 kg (197 lb 15.6 oz), SpO2 89.00%. Gen: alert, oriented, in no acute distress Abd: soft, appropriately tender, midline incision with dressing in place minimal strikethro ugh, drain in place with serosanguinous output : proctor to gravity draining clear yellow urine A/P: 49 yo male with PMHx significant for prostate cancer now POD#1 s/p open RPP. - Pain control - will add 6x doses IV toradol - Ambulate up OOB at least TID today - Catheter teaching with nursing - Regular diet - LR @75cc/hr will SLIV when taking adequate PO De Huff MD Pager [phone] signed by De Huff MD at 08/02/2014 7:44 AM PSTdocumented in this encounter H&P Notes Other, Faculty - 08/07/2014 10:40 AM PSTElectronically signed by Faculty Other at 10:40 AM PSTdocumented in this encounter Procedure Notes Wesley Parra MD - 08/01/2014 3:39 PM PSTAssociated Order(s): PROCEDURE NOTEOPERATIVE NOTE Procedure Date: 08/01/14 Author: WESLEY PARRA MD Attending Physician: Columba Kohli MD Assistants: WESLEY PARRA MD Preoperative Diagnosis: Prostate cancer Postoperative Diagnosis: Same Procedure Performed: Open retropubic radical prostatectomy with bilateral pelvic lymph node dissection Estimated Blood Loss: 700 mL Fluids: 4200 mL Urine output: NR Specimens: Prostate with seminal vesicles; bilateral pelvis lymph nodes Complications: none Drains: 10 mm VIKKI over bladder; 20 Fr Proctor Disposition: PACU Findings: 1) No gross lymphadenopathy 2) Palpable tumor within prostate, no evidence of NAYELY 3) Bilateral non-nerve sparing Indication: Elvia Villalta is a 49 y.o. Male who presented with an abnormal DONALD and was fo und to have a PSA which peaked over 80. He underwent TRUS biopsy which showed [place] 4+3 pr ostate cancer throughout the prostate. He was started on Casodex. After discussion of his op tions he elected to undergo prostatectomy. We elected for the open approach due to the high volume of cancer. Procedure details: Prior to the beginning of the procedure the team paused to verify the patient's identity, a s well as the procedure to be performed, the correct side/site, appropriate antibiotic proph ylaxis and to address any concerns. All equipment required was ready and available. Sequent ial compression devices were placed on the bilateral lower extremities and turned on prior t o the induction of general endotracheal anesthesia. The patient was positioned appropriately in supine position with the table flexed beneath t he hips. The surgical site was then prepared and draped in the usual sterile surgical fashi on. A 20 Fr Proctor was inserted. An infraumbilical incision was made with a scalpel. The subcuta neous tissue and rectus fascia were sequentially incised with the electrocautery. The transv ersalis fascia was incised, the space of Retzius was developed using blunt dissection, and a Bookwalter retractor was placed to maintain exposure. The right pelvic lymphnode dissection was undertaken first by sharply excising the tissue just lateral to the external iliac vein , dissecting this tissue from the bifurcation of the common iliac to Luis's ligament, and the obturator nerve was identified throughout its course, and was preserved throughout the p rocedure. The fabian tissue was ligated distally with a 2.0- silk suture. The fabian packet in the obturator fossa was taken off the lateral pelvic musculature back to the bifurcation of the common iliacs. Additional obturator and internal iliac nodes were also taken. After belkis t, a complete lymph node dissection was performed on the patient's left side. Next we incise d the endopelvic fascia sharply. At this point, we could palpate that the prostate on both s ides. We performed a bunching procedure of the dorsal vein complex over the prostate with Ba bcock clamps, and we oversewed the complex with 2-0 Vicryl suture. The dorsal venous complex was isolated distal to the prostate and was then divided with a 60 mm vascular load of the ABDIRIZAK stapler. The pelvis side of the vein was oversewn with 2-0 vicryl. The urethra was then transected sharply. Prior to completion of the urethral transection, 4 anastomosis sutures w ere placed, anteriorly and laterally. These were 2-0 vicryl. We then completed the transecti on of the urethra and placed 2 additional anastomosis sutures posteriorly. We then rolled the prostate superiorly and developed the plane between the rectum and prost ate. We divided the pedicles of the prostate with hemoclips and electrocautery.We were then able to dissect out the seminal vesicles bilaterally, placing hemoclips on the blood vessels supplying these structures. The vas deferens was also identified, and we clipped this and t ransected this. Next we circumferentially incised the prostate away from the bladder, gettin g a clear margin. We removed the prostate at this point. We irrigated the pelvis with steril e water, and packed it off once again with Ray-Tecs. At this point, we everted the anterior bladder neck with 3-0 vicryl suture. We closed the posterior bladder neck with 2-0 Vicryl lyman ture. After obtaining hemostasis, we anastomosed the urethra to the bladder using the previo usly placed 2-0 vicryl sutures. We took the flexion out of the table and placed the Proctor on slight traction. We irrigated the bladder with 120 cc of saline, and could not demonstrate a bladder leak. Thus, we placed a Stevenson-Anrdews drains in the pelvis overlying the bladder and sutured this in placed with 3-0 nylon suture. The fascia was closed with a running 0-0 PDS suture, and t he wound was irrigated with copious amounts of saline, and closed the skin in two layers wit h absorbable sutures. At the end of the procedure the patient's surgical site was cleaned and dried and sterile d ressings were applied. The needle, sponge and instrument count were reported as correct at the end of the procedur e. The patient was extubated uneventfully by anesthesia and transferred to the post anesthesia unit in good condition. I certify that Columba Kohli MD was scrubbed for the entire procedure. Post-op Plan: Admit to simpson. Clears POD#1. Regular POD#2. Check VIKKI creatinine and remove prior to dischar ge assuming no urine leak and output < 50 mL per day. Abx x 24 hours. Wesley Parra MD Resident - R5 Department of Urology Pager #[phone] documented in this en counter Miscellaneous Notes Scan - Other, Faculty - 08/07/2014 10:40 AM PSTElectronically signed by Faculty Other at 10:40 AM PSTScan - Other, Faculty - 08/07/2014 10:40 AM PST can - Other, Faculty - 08/07/2014 10:40 AM PSTElec tronically signed by Faculty Other at 08/07/2014 10:40 AM PSTScan - Other, Faculty - 014 10:40 AM PST can - Jose David r, Faculty - 08/07/2014 10:40 AM PST 10: 40 AM PSTEvaluation - Rigo Qiu RN - 08/04/2014 10:13 AM PSTNursing Discharge Note Discharge Date: 08/04/2014 Additional Discharge Information: Discharge teaching completed, given handouts, paperwork, and prescriptions. IV removed and all belonging with patient. Proctor care taught, demo cares and additional supplies given for home. Assisted off unit with brother, discharge home via p [employer] vehicle. Discharge Nurse: RIGO QIU RN andoff - Rigo Qiu RN - 08/03/2014 6:23 PM PSTPrimary focus of stay: radical retropubic prostatectomy Pertinent history/background: arthritis, depression, GERD, hyperlipidemia, TIA, alcoholism, anxiety, insomnia Comprehensive assessment: Pain assessment: Complaining of pain that is constant about a 5 and spikes with movement. 1 5mg oxycodone and Toradol given Spiritual, psych/social findings: Calm, pleasant. Supportive brothers were here but went ho me for the night. Medical findings: A+Ox4, PIV in left forearm, midline incision on lower abdomen, VIKKI on righ t side draining sersanguinous and very low rate, proctor in place with pink tinged urine, inde pendent Patient is at risk for: Falls Stability: Moderately Stable Targeted interventions based on risk & stability (care plan): Problems: 1) at risk for infection 1.) Potential for pain 2.) Potential for decreased bowel function 3.) Potential for decreased pulmonary function 4.) Potential for decreased activity/ADLs 5.) Potential for skin breakdown 6.) Potential for fall Goals: 1.) Patient will rate pain <3/10 2.) Patient will have normal bowel movements 3.) Patient demonstrates proper technique of using IS 4.) Patient will increase activity by ambulating pond TID 5.) Patient will maintain skin integrity 6.) Patient will be without falls Interventions: 1) monitor S/sx of infection. Monitor vitals 1.) Assess pain every 3 hours and PRN offer and administer medication as needed 2.) Provide patient with bowel care medications and encourage PO fluids and mobility to pre vent constipation 3.) Reinforce use of IS/CDB and importance of pulmonary activities 4.) Assist patient up to ambulate 5.) Encourage patient to mobilize as much as possible, including moving in bed, turn Q 2hrs ; prevent patient from lying on tubes. 6.) Offer and provide assistance to bathroom Q2-3hours and as needed. Bed in low position w ith brakes locked, side rails x2, room near station, call light in reach, clutter free envir onment with needed personal items in reach Response to interventions (evaluation): Pt. Breathing deeply with encouragement, moves in b ed well, pain is the main issue. Recommendations: monitor BPs and assess pain frequently (Q2 hours) if BP rises and pain is still high, page MDs for an alternative pain medication. Last patient visit (i.e. FACETS): End of shift, given warm blanket. Denies any further need s Pending interventions: Orders: Procedures: Teaching: proctor care needs to be taught Discharge Plan DC home with family. andoff - Nilson Alvarez RN - 08/02/2014 7:01 PM PSTPrimary focus of stay: radical retropubic prostatectomy Pertinent history/background: arthritis, depression, GERD, hyperlipidemia, TIA, alcoholism, anxiety, insomnia Comprehensive assessment: Pain assessment: Complaining of pain that is constant about a 5-6 and spikes with movement. 15mg oxycodone and Toradol given plus two doses of oxibutynin. Spiritual, psych/social find ings: Calm, pleasant. Supportive brothers were here when he arrived , but went home for the night. Medical findings: A+Ox4, hypotensive MDs aware PIV in left forearm with LR running at 75ml/hr, midline incision on lower abdomen with scant drainiage, VIKKI on right side draining sersanguinous and very low rate, proctor in place with pink tinged urine, SCDs on, moving around well in bed independently, though painful. Patient is at risk for: Falls Stability: Moderately Stable Targeted interventions based on risk & stability (care plan): Problems: 1) at risk for infection 1.) Potential for pain 2.) Potential for decreased bowel function 3.) Potential for decreased pulmonary function 4.) Potential for decreased activity/ADLs 5.) Potential for skin breakdown 6.) Potential for fall Goals: 1.) Patient will rate pain <3/10 2.) Patient will have normal bowel movements 3.) Patient demonstrates proper technique of using IS 4.) Patient will increase activity by ambulating pond TID 5.) Patient will maintain skin integrity 6.) Patient will be without falls Interventions: 1) monitor S/sx of infection. Monitor vitals 1.) Assess pain every 3 hours and PRN offer and administer medication as needed 2.) Provide patient with bowel care medications and encourage PO fluids and mobility to pre vent constipation 3.) Reinforce use of IS/CDB and importance of pulmonary activities 4.) Assist patient up to ambulate 5.) Encourage patient to mobilize as much as possible, including moving in bed, turn Q 2hrs ; prevent patient from lying on tubes. 6.) Offer and provide assistance to bathroom Q2-3hours and as needed. Bed in low position w ith brakes locked, side rails x2, room near station, call light in reach, clutter free envir onment with needed personal items in reach Response to interventions (evaluation): Pt. Breathing deeply with encouragement, moves in b ed well, pain is the main issue. Recommendations: monitor BPs and assess pain frequently (Q2 hours) if BP rises and pain is still high, page MDs for an alternative pain medication. Last patient visit (i.e. FACETS): before shift change, pt sleeping. Pending interventions: Orders: Procedures: Teaching: proctor care needs to be taught Discharge Plan DC home with family. lan of Care - Deisy Washington - 08/02/2014 9:55 AM PSTProblem: Case Management Goals Goal: Discharge Needs Met Per chart review and/or discussion with patient/family, no need for discharge planning assi stance from RN CM identified at this time. Please see other disciplines' progress notes for their discharge recommendations. Please page case finishing machine adjuster if any CM arranged service needs a rise. Deisy Washington [facility] [address] [facility] [address] [facility] [id number] [place] [address] Pager # [phone] arlita Martin RN - 08/02/2014 12:54 AM PSTPrimary focus of stay: radical retropubic prostatectomy Pertinent history/background: arthritis, depression, GERD, hyperlipidemia, TIA, alcoholism, anxiety, insomnia Comprehensive assessment: Pain assessment: Complaining of pain since he was admitted to from PACU at 1900. 15m g oxy and IV dilaudid weren't touching it at first. paged, she suggested oxibutynin. MDs paged about BP and were unconcerned, Pts BP has been relatively stable with 0.2 mg Dilaudid q2-3 Spiritual, psych/social findings: Calm, pleasant. Supportive brothers were here when he arrived , but went home for the night. Medical findings: A+Ox4, hypotensive MDs aware (SBP varies between 77-97 , on Q30 min B Ps right now), PIV in left forearm with LR running at 100ml/hr, midline incision on lower ab domen with scant drainiage and surgical dressing in place, VIKKI on right side draining blood/s ersanguinous and very low rate, proctor in place with pink tinged urine, SCDs on, moving aroun d well in bed independently, though painful. Patient is at risk for: Falls Stability: Moderately Stable Targeted interventions based on risk & stability (care plan): Problems: 1) at risk for infection 1.) Potential for pain 2.) Potential for decreased bowel function 3.) Potential for decreased pulmonary function 4.) Potential for decreased activity/ADLs 5.) Potential for skin breakdown 6.) Potential for fall Goals: 1.) Patient will rate pain <3/10 2.) Patient will have normal bowel movements 3.) Patient demonstrates proper technique of using IS 4.) Patient will increase activity by ambulating pond TID 5.) Patient will maintain skin integrity 6.) Patient will be without falls Interventions: 1) monitor S/sx of infection. Monitor vitals 1.) Assess pain every 3 hours and PRN offer and administer medication as needed 2.) Provide patient with bowel care medications and encourage PO fluids and mobility to pre vent constipation 3.) Reinforce use of IS/CDB and importance of pulmonary activities 4.) Assist patient up to ambulate 5.) Encourage patient to mobilize as much as possible, including moving in bed, turn Q 2hrs ; prevent patient from lying on tubes. 6.) Offer and provide assistance to bathroom Q2-3hours and as needed. Bed in low position w ith brakes locked, side rails x2, room near station, call light in reach, clutter free envir onment with needed personal items in reach Response to interventions (evaluation): Pt. Breathing deeply with encouragement, moves in bed well, pain is the main issue. Recommendations: monitor BPs and assess pain frequently (Q2 hours) if BP rises and pain is still high, page MDs for an alternative pain medication. Last patient visit (i.e. FACETS): before shift change, pt sleeping. Pending interventions: Orders: Procedures: Teaching: proctor care needs to be taught Discharge Plan DC home with family. Josee Mirza RN - 08/01/2014 10:19 PM PSTPrimary focus of stay: radical retropubic prostatectomy Pertinent history/background: arthritis, depression, GERD, hyperlipidemia, TIA, alcoholism, anxiety, insomnia Comprehensive assessment: Pain assessment: Complaining of pain since he was admitted to from PACU at 1900. 15m g oxy and IV dilaudid weren't touching it. paged, she suggested oxibutynin. Gave that to patient around 2100. He had some relief in pain and was sleeping. When I woke him up, he sti ll cmplained of pain 07/05. However, BP was 89/56. MDs paged about BP and were unconcerned, but I did not give further pain medications because of this. Spiritual, psych/social findings: Calm, pleasant. Supportive brothers were here when he arrived , but went home for the night. Medical findings: A+Ox4, very hypotensive MDs aware (BP has risen a little, on Q30 min BPs right now), PIV in left forearm with LR running at 100ml/hr, 2L NC with adequate O2 sats (pt moves finger probe around and will cause inaccurate readings) midline incision on lowe r abdomen with scant drainiage and surgical dressing in place, VIKKI on right side draining blo od/sersanguinous and very low rate, proctor in place with pink tinged urine, SCDs on, moving a round well in bed independently, though painful. Patient is at risk for: Falls Stability: Moderately Stable Targeted interventions based on risk & stability (care plan): Response to interventions (evaluation): Recommendations: monitor BPs and assess pain frequently (Q2 hours) if BP rises and pain is still high, page MDs for an alternative pain medication. Last patient visit (i.e. FACETS): before shift change, pt sleeping. Pending interventions: Orders: Procedures: Teaching: proctor care needs to be taught Discharge Plan DC home with family. Liliana Lua RN - 08/01/2014 5:20 PM PSTBela Phase I Discharge Criteria (Stable For Transfer): y es Major deviations/events or pertinent findings of abhinav-operative stay: difficulty controllin g pain, otherwise tolerated well, VSS throughout Anticipated post-op needs/devices/follow up: pain control, OOB and return to functionality Post-Op Diagnosis Codes: * Malignant neoplasm of prostate [185] Surgical Procedure Planned - Actual Procedure Performed: Procedure(s) with comments: RADICAL RETROPUBIC PROSTATECTOMY - OPEN RADICAL PROSTATECTOMY, bilateral pelvic lymphadenec abhijit; pathology sent (3 catalina), see paper record Anesthesia: General Length of procedure: In Room/Out of Room: 4 Hr 6 Min 18 Sec Surgeon(s) and Role: * Columba Kohli MD - Primary OR positioning comments: supine Neuro: POSS Sedation Level: Awake & Alert Last pain medication given: Pain medication totals: 0.9 mg dilaudid, 200mcg fentanyl, 650mg tylenol, 10mg oxy Additional pain medication information: Functional Epidural: N/A PAPER SLITTER: N/A Respiratory: RR: 23, O2 Sat: 95 %, O2 Delivery: Nasal cannula Breath Sounds: WDL SILVIA: LLL: RUL: RLL: NAHUN No Comment: Cardiac: BP: 115/52 mmHg HR: 95 GI: Nausea/Vomiting Status: No Signs/Symptoms: Interventions: Assessment: Comments: : Last void: proctor in place, great UOP Contact Name: Quita hammond Contact Number: [phone] Family contacted: Yes Comment: multiple updates Belongings: documented in this en counter Plan of Treatment Not on filedocumented as of this encounter Procedures + +--------+ + + + | Procedure Name | Priori | Date/Time | Associated Diagnosis | Comments | | | ty | | | | + +--------+ + + + | PROCEDURE NOTE | Routin | 10/30/2015 | | Results for this | | | e | 5:00 PM | | procedure are in the | | | | PST | | results section. | + +--------+ + + + | CBC (HEMOGRAM) ONLY | Urgent | 08/04/2014 | | Results for this | | | | 5:53 AM | | procedure are in the | | | | PST | | results section. | + +--------+ + + + | BASIC METABOLIC SET | Urgent | 08/04/2014 | | Results for this | | (NA, K, CL, TCO2, | | 5:53 AM | | procedure are in the | | BUN, CR, GLU, CA) | | PST | | results section. | + +--------+ + + + | CBC ONLY | Urgent | 08/04/2014 | | Results for this | | | | 5:53 AM | | procedure are in the | | | | PST | | results section. | + +--------+ + + + | PHOSPHORUS, PLASMA | Urgent | 08/04/2014 | | Results for this | | | | 5:53 AM | | procedure are in the | | | | PST | | results section. | + +--------+ + + + | MAGNESIUM, PLASMA | Urgent | 08/04/2014 | | Results for this | | | | 5:53 AM | | procedure are in the | | | | PST | | results section. | + +--------+ + + + | CBC (HEMOGRAM) ONLY | Urgent | 08/03/2014 | | Results for this | | | | 5:59 AM | | procedure are in the | | | | PST | | results section. | + +--------+ + + + | BASIC METABOLIC SET | Urgent | 08/03/2014 | | Results for this | | (NA, K, CL, TCO2, | | 5:59 AM | | procedure are in the | | BUN, CR, GLU, CA) | | PST | | results section. | + +--------+ + + + | CBC ONLY | Urgent | 08/03/2014 | | Results for this | | | | 5:59 AM | | procedure are in the | | | | PST | | results section. | + +--------+ + + + | PHOSPHORUS, PLASMA | Urgent | 08/03/2014 | | Results for this | | | | 5:59 AM | | procedure are in the | | | | PST | | results section. | + +--------+ + + + | MAGNESIUM, PLASMA | Urgent | 08/03/2014 | | Results for this | | | | 5:59 AM | | procedure are in the | | | | PST | | results section. | + +--------+ + + + | CAPILLARY BLOOD | Routin | 08/02/2014 | | Results for this | | GLUCOSE (NO CHG), | e | 7:30 PM | | procedure are in the | | POC | | PST | | results section. | + +--------+ + + + | CBC (HEMOGRAM) ONLY | Urgent | 08/02/2014 | | Results for this | | | | 5:35 AM | | procedure are in the | | | | PST | | results section. | + +--------+ + + + | BASIC METABOLIC SET | Urgent | 08/02/2014 | | Results for this | | (NA, K, CL, TCO2, | | 5:35 AM | | procedure are in the | | BUN, CR, GLU, CA) | | PST | | results section. | + +--------+ + + + | CBC ONLY | Urgent | 08/02/2014 | | Results for this | | | | 5:35 AM | | procedure are in the | | | | PST | | results section. | + +--------+ + + + | PHOSPHORUS, PLASMA | Urgent | 08/02/2014 | | Results for this | | | | 5:35 AM | | procedure are in the | | | | PST | | results section. | + +--------+ + + + | MAGNESIUM, PLASMA | Urgent | 08/02/2014 | | Results for this | | | | 5:35 AM | | procedure are in the | | | | PST | | results section. | + +--------+ + + + | RADICAL RETROPUBIC | Electi | 08/01/2014 | Malignant neoplasm | | | PROSTATECTOMY | ve | 10:57 AM | of prostate (HCC) | | | | Surgic | PST | | | | | al | | | | + +--------+ + + + | SURGICAL PATHOLOGY | Routin | 08/01/2014 | | Results for this | | | e | | | procedure are in the | | | | | | results section. | + +--------+ + + + documented in this encounter Results PROCEDURE NOTE (10/30/2015 5:00 PM PST)CBC (HEMOGRAM) ONLY (08/04/2014 5:53 AM PST) + + + + + + | Component | Value | Ref Range | Performed | Pathologist | | | | | At | Signature | + + + + + + | WHITE CELL | 6.77 | 4.40 - 11.00 | [facility] | | | COUNT | | K/cu mm | LABORATORY | | | | | | SERVICES, | | | | | | CORE | | + + + + + + | RED CELL | 2.86 (L) | 4.50 - 6.00 | [facility] | | | COUNT | | M/cu mm | LABORATORY | | | | | | SERVICES, | | | | | | CORE | | + + + + + + | HEMOGLOBIN | 9.9 (L) | 13.5 - 17.5 | [facility] | | | | | g/dL | LABORATORY | | | | | | SERVICES, | | | | | | CORE | | + + + + + + | HEMATOCRIT | 28.9 (L) | 41.0 - 53.0 % | [facility] | | | | | | LABORATORY | | | | | | SERVICES, | | | | | | CORE | | + + + + + + | MCV | 101.0 (H) | 80.0 - 96.0 fL | [facility] | | | | | | LABORATORY | | | | | | SERVICES, | | | | | | CORE | | + + + + + + | MCHC | 34.3 | 33.0 - 35.5 | [facility] | | | | | g/dL | LABORATORY | | | | | | SERVICES, | | | | | | CORE | | + + + + + + | RDW SD | 46.4 (H) | 35.1 - 46.3 fL | [facility] | | | | | | LABORATORY | | | | | | SERVICES, | | | | | | CORE | | + + + + + + | PLATELET | 200 | 150 - 400 K/cu | [facility] | | | COUNT | | mm | LABORATORY | | | | | | SERVICES, | | | | | | CORE | | + + + + + + | MPV | 9.6 (L) | 9.7 - 12.3 fL | [facility] | | | | | | LABORATORY | | | | | | SERVICES, | | | | | | CORE | | + + + + + + | NRBC% | 0.0 | 0.0 - 0.3 % | [facility] | | | | | | LABORATORY | | | | | | SERVICES, | | | | | | CORE | | + + + + + + | NRBC# | 0.00 | 0.00 - 0.02 | [facility] | | | | | K/cu mm | LABORATORY | | | | | | SERVICES, | | | | | | CORE | | + + + + + + + + | Specimen | + + | Blood - Blood | + + + + + + + | Performing | Address | City/State/Zipcode | Phone Number | | Organization | | | | + + + + + | [facility] | [phone] | [place] [address] | | | SERVICES, CORE | [address] | | | + + + + + PHOSPHORUS, PLASMA (08/04/2014 5:53 AM PST) + +-------+ + + + | Component | Value | Ref Range | Performed | Pathologist | | | | | At | Signature | + +-------+ + + + | PHOSPHORUS, | 4.0 | 2.4 - 4.7 mg/dL | [facility] | | | PLASMA | | | LABORATORY | | | (LAB) | | | SERVICES, | | | | | | CORE | | + +-------+ + + + + + | Specimen | + + | Blood - Blood | + + + + + + + | Performing | Address | City/State/Zipcode | Phone Number | | Organization | | | | + + + + + | [facility] | [address] | [place] [address] | | | SERVICES, CORE | [address] | | | + + + + + MAGNESIUM, PLASMA (08/04/2014 5:53 AM PST) + +---------+ + + + | Component | Value | Ref Range | Performed | Pathologist | | | | | At | Signature | + +---------+ + + + | MAGNESIUM,P | 1.6 (L) | 1.8 - 2.5 mg/dL | [facility] | | | LASMA | | | LABORATORY | | | | | | JAYLEN, | | | | | | CORE | | + +---------+ + + + + + | Specimen | + + | Blood - Blood | + + + + + + + | Performing | Address | City/State/Zipcode | Phone Number | | Organization | | | | + + + + + | [facility] | [address] | [place] [address] | | | SERVICES, CORE | [address] | | | + + + + + BASIC METABOLIC SET (NA, K, CL, TCO2, BUN, CR, GLU, CA) (08/04/2014 5:53 AM PST) + +---------+ + + + | Component | Value | Ref Range | Performed | Pathologist | | | | | At | Signature | + +---------+ + + + | GLUCOSE, | 86 | 60 - 99 mg/dL | [facility] | | | PLASMA | | | LABORATORY | | | (LAB) | | | SERVICES, | | | | | | CORE | | + +---------+ + + + | BUN, PLASMA | 11 | 6 - 20 mg/dL | [facility] | | | (LAB) | | | LABORATORY | | | | | | SERVICES, | | | | | | CORE | | + +---------+ + + + | CREATININE | 0.87 | 0.70 - 1.30 | [facility] | | | PLASMA | | mg/dL | LABORATORY | | | (LAB) | | | SERVICES, | | | | | | CORE | | + +---------+ + + + | EGFR | >60 | >60 mL/min | [facility] | | | - | | | LABORATORY | | | [place] | | | SERVICES, | | | | | | CORE | | + +---------+ + + + | EGFR NON | >60 | >60 mL/min | [facility] | | | -[facility] | | | LABORATORY | | | [facility] | | | SERVICES, | | | | | | CORE | | + +---------+ + + + | SODIUM, | 139 | 136 - 145 | [facility] | | | PLASMA | | mmol/L | LABORATORY | | | (LAB) | | | SERVICES, | | | | | | CORE | | + +---------+ + + + | POTASSIUM, | 4.3 | 3.4 - 5.0 | [facility] | | | PLASMA | | mmol/L | LABORATORY | | | (LAB) | | | SERVICES, | | | | | | CORE | | + +---------+ + + + | CHLORIDE, | 107 | 97 - 108 mmol/L | [facility] | | | PLASMA | | | LABORATORY | | | (LAB) | | | SERVICES, | | | | | | CORE | | + +---------+ + + + | TOTAL CO2, | 26 | 21 - 32 mmol/L | [facility] | | | PLASMA | | | LABORATORY | | | (LAB) | | | SERVICES, | | | | | | CORE | | + +---------+ + + + | CALCIUM, | 8.3 (L) | 8.6 - 10.2 | [facility] | | | PLASMA | | mg/dL | LABORATORY | | | (LAB) | | | SERVICES, | | | | | | CORE | | + +---------+ + + + | ANION GAP | 6 | mmol/L | [facility] | | | | | | LABORATORY | | | | | | SERVICES, | | | | | | CORE | | + +---------+ + + + | POTASSIUM | No Hemo | | [facility] | | | CMNT | | | LABORATORY | | | | | | SERVICES, | | | | | | CORE | | + +---------+ + + + + + | Specimen | + + | Blood - Blood | + + + + + | Narrative | Performed At | + + + | GFR is estimated using the MDRD equation recommended by the | [facility] | | National Kidney Disease Education Program. Estimated GFR | LABORATORY | | Interpretive Information: <60 mL/min/1.73 sq m | SERVICES, CORE | | Chronic Kidney Disease <15 mL/min/1.73 sq m | | | Kidney Failure Estimated GFR greater that 60 mL/min/1.73 sq m is of | | | limited clinical value. The MDRD equation is not valid in the | | | following situations: - Patients under 18 years of age - Severe | | | malnutrition or obesity - Vegetarian diet - Rapidly changing kidney | | | function | | + + + + + + + + | Performing | Address | City/State/Zipcode | Phone Number | | Organization | | | | + + + + + | [facility] | [address] | [place] [address] | | | SERVICES, CORE | [address] | | | + + + + + CBC (HEMOGRAM) ONLY (08/03/2014 5:59 AM PST) + + + + + + | Component | Value | Ref Range | Performed | Pathologist | | | | | At | Signature | + + + + + + | WHITE CELL | 9.35 | 4.40 - 11.00 | [facility] | | | COUNT | | K/cu mm | LABORATORY | | | | | | SERVICES, | | | | | | CORE | | + + + + + + | RED CELL | 2.94 (L) | 4.50 - 6.00 | [facility] | | | COUNT | | M/cu mm | LABORATORY | | | | | | SERVICES, | | | | | | CORE | | + + + + + + | HEMOGLOBIN | 10.5 (L) | 13.5 - 17.5 | [facility] | | | | | g/dL | LABORATORY | | | | | | SERVICES, | | | | | | CORE | | + + + + + + | HEMATOCRIT | 30.0 (L) | 41.0 - 53.0 % | [facility] | | | | | | LABORATORY | | | | | | SERVICES, | | | | | | CORE | | + + + + + + | MCV | 102.0 (H) | 80.0 - 96.0 fL | [facility] | | | | | | LABORATORY | | | | | | SERVICES, | | | | | | CORE | | + + + + + + | MCHC | 35.0 | 33.0 - 35.5 | [facility] | | | | | g/dL | LABORATORY | | | | | | SERVICES, | | | | | | CORE | | + + + + + + | RDW SD | 47.2 (H) | 35.1 - 46.3 fL | [facility] | | | | | | LABORATORY | | | | | | SERVICES, | | | | | | CORE | | + + + + + + | PLATELET | 202 | 150 - 400 K/cu | [facility] | | | COUNT | | mm | LABORATORY | | | | | | SERVICES, | | | | | | CORE | | + + + + + + | MPV | 9.5 (L) | 9.7 - 12.3 fL | [facility] | | | | | | LABORATORY | | | | | | SERVICES, | | | | | | CORE | | + + + + + + | NRBC% | 0.0 | 0.0 - 0.3 % | [facility] | | | | | | LABORATORY | | | | | | SERVICES, | | | | | | CORE | | + + + + + + | NRBC# | 0.00 | 0.00 - 0.02 | [facility] | | | | | K/cu mm | LABORATORY | | | | | | SERVICES, | | | | | | CORE | | + + + + + + + + | Specimen | + + | Blood - Blood | + + + + + + + | Performing | Address | City/State/Zipcode | Phone Number | | Organization | | | | + + + + + | [facility] | [address] | [place] [address] | | | SERVICES, CORE | [address] | | | + + + + + PHOSPHORUS, PLASMA (08/03/2014 5:59 AM PST) + +-------+ + + + | Component | Value | Ref Range | Performed | Pathologist | | | | | At | Signature | + +-------+ + + + | PHOSPHORUS, | 3.0 | 2.4 - 4.7 mg/dL | [facility] | | | PLASMA | | | LABORATORY | | | (LAB) | | | SERVICES, | | | | | | CORE | | + +-------+ + + + + + | Specimen | + + | Blood - Blood | + + + + + + + | Performing | Address | City/State/Zipcode | Phone Number | | Organization | | | | + + + + + | [facility] | [address] | [place] [address] | | | SERVICES, CORE | [address] | | | + + + + + MAGNESIUM, PLASMA (08/03/2014 5:59 AM PST) + +---------+ + + + | Component | Value | Ref Range | Performed | Pathologist | | | | | At | Signature | + +---------+ + + + | MAGNESIUM,P | 1.7 (L) | 1.8 - 2.5 mg/dL | [facility] | | | LASMA | | | LABORATORY | | | | | | SERVICES, | | | | | | CORE | | + +---------+ + + + + + | Specimen | + + | Blood - Blood | + + + + + + + | Performing | Address | City/State/Zipcode | Phone Number | | Organization | | | | + + + + + | [facility] | [address] | [place] [address] | | | SERVICES, CORE | [address] | | | + + + + + BASIC METABOLIC SET (NA, K, CL, TCO2, BUN, CR, GLU, CA) (08/03/2014 5:59 AM PST) + +---------+ + + + | Component | Value | Ref Range | Performed | Pathologist | | | | | At | Signature | + +---------+ + + + | GLUCOSE, | 90 | 60 - 99 mg/dL | [facility] | | | PLASMA | | | LABORATORY | | | (LAB) | | | SERVICES, | | | | | | CORE | | + +---------+ + + + | BUN, PLASMA | 11 | 6 - 20 mg/dL | [facility] | | | (LAB) | | | LABORATORY | | | | | | SERVICES, | | | | | | CORE | | + +---------+ + + + | CREATININE | 0.99 | 0.70 - 1.30 | [facility] | | | PLASMA | | mg/dL | LABORATORY | | | (LAB) | | | SERVICES, | | | | | | CORE | | + +---------+ + + + | EGFR | >60 | >60 mL/min | [facility] | | | - | | | LABORATORY | | | [place] | | | SERVICES, | | | | | | CORE | | + +---------+ + + + | EGFR NON | >60 | >60 mL/min | [facility] | | | -[facility] | | | LABORATORY | | | [facility] | | | SERVICES, | | | | | | CORE | | + +---------+ + + + | SODIUM, | 138 | 136 - 145 | [facility] | | | PLASMA | | mmol/L | LABORATORY | | | (LAB) | | | SERVICES, | | | | | | CORE | | + +---------+ + + + | POTASSIUM, | 4.0 | 3.4 - 5.0 | [facility] | | | PLASMA | | mmol/L | LABORATORY | | | (LAB) | | | SERVICES, | | | | | | CORE | | + +---------+ + + + | CHLORIDE, | 106 | 97 - 108 mmol/L | [facility] | | | PLASMA | | | LABORATORY | | | (LAB) | | | SERVICES, | | | | | | CORE | | + +---------+ + + + | TOTAL CO2, | 27 | 21 - 32 mmol/L | [facility] | | | PLASMA | | | LABORATORY | | | (LAB) | | | SERVICES, | | | | | | CORE | | + +---------+ + + + | CALCIUM, | 8.2 (L) | 8.6 - 10.2 | [facility] | | | PLASMA | | mg/dL | LABORATORY | | | (LAB) | | | SERVICES, | | | | | | CORE | | + +---------+ + + + | ANION GAP | 5 | mmol/L | [facility] | | | | | | LABORATORY | | | | | | SERVICES, | | | | | | CORE | | + +---------+ + + + | POTASSIUM | No Hemo | | [facility] | | | CMNT | | | LABORATORY | | | | | | SERVICES, | | | | | | CORE | | + +---------+ + + + + + | Specimen | + + | Blood - Blood | + + + + + | Narrative | Performed At | + + + | GFR is estimated using the MDRD equation recommended by the | [facility] | | National Kidney Disease Education Program. Estimated GFR | LABORATORY | | Interpretive Information: <60 mL/min/1.73 sq m | SERVICES, CORE | | Chronic Kidney Disease <15 mL/min/1.73 sq m | | | Kidney Failure Estimated GFR greater that 60 mL/min/1.73 sq m is of | | | limited clinical value. The MDRD equation is not valid in the | | | following situations: - Patients under 18 years of age - Severe | | | malnutrition or obesity - Vegetarian diet - Rapidly changing kidney | | | function | | + + + + + + + + | Performing | Address | City/State/Zipcode | Phone Number | | Organization | | | | + + + + + | [facility] | [address] | [place] [address] | | | SERVICES, CORE | [address] | | | + + + + + CAPILLARY BLOOD GLUCOSE (NO CHG), POC (08/02/2014 7:30 PM PST) + +-------+ + + + | Component | Value | Ref Range | Performed | Pathologist | | | | | At | Signature | + +-------+ + + + | BLOOD | 79 | 60 - 99 mg/dL | [facility] - | | | GLUCOSE, | | | [facility] | | | POC | | | [facility] | | | | | | OF CARE | | | | | | TESTS | | + +-------+ + + + + + | Specimen | + + | | + + + + + + + | Performing | Address | City/State/Zipcode | Phone Number | | Organization | | | | + + + + + | [facility] | [address] | [place], [place] | | | [facility] [place] | [address] | [phone] | | | TESTS | | | | + + + + + CBC (HEMOGRAM) ONLY (08/02/2014 5:35 AM PST) + + + + + + | Component | Value | Ref Range | Performed | Pathologist | | | | | At | Signature | + + + + + + | WHITE CELL | 8.22 | 4.40 - 11.00 | [facility] | | | COUNT | | K/cu mm | LABORATORY | | | | | | SERVICES, | | | | | | CORE | | + + + + + + | RED CELL | 3.13 (L) | 4.50 - 6.00 | [facility] | | | COUNT | | M/cu mm | LABORATORY | | | | | | SERVICES, | | | | | | CORE | | + + + + + + | HEMOGLOBIN | 10.7 (L) | 13.5 - 17.5 | [facility] | | | | | g/dL | LABORATORY | | | | | | SERVICES, | | | | | | CORE | | + + + + + + | HEMATOCRIT | 31.5 (L) | 41.0 - 53.0 % | [facility] | | | | | | LABORATORY | | | | | | SERVICES, | | | | | | CORE | | + + + + + + | MCV | 100.6 (H) | 80.0 - 96.0 fL | [facility] | | | | | | LABORATORY | | | | | | SERVICES, | | | | | | CORE | | + + + + + + | MCHC | 34.0 | 33.0 - 35.5 | [facility] | | | | | g/dL | LABORATORY | | | | | | SERVICES, | | | | | | CORE | | + + + + + + | RDW SD | 47.7 (H) | 35.1 - 46.3 fL | [facility] | | | | | | LABORATORY | | | | | | SERVICES, | | | | | | CORE | | + + + + + + | PLATELET | 220 | 150 - 400 K/cu | [facility] | | | COUNT | | mm | LABORATORY | | | | | | SERVICES, | | | | | | CORE | | + + + + + + | MPV | 9.4 (L) | 9.7 - 12.3 fL | [facility] | | | | | | LABORATORY | | | | | | SERVICES, | | | | | | CORE | | + + + + + + | NRBC% | 0.0 | 0.0 - 0.3 % | [facility] | | | | | | LABORATORY | | | | | | SERVICES, | | | | | | CORE | | + + + + + + | NRBC# | 0.00 | 0.00 - 0.02 | [facility] | | | | | K/cu mm | LABORATORY | | | | | | SERVICES, | | | | | | CORE | | + + + + + + + + | Specimen | + + | Blood - Blood | + + + + + + + | Performing | Address | City/State/Zipcode | Phone Number | | Organization | | | | + + + + + | [facility] | [address] | [place] [address] | | | SERVICES, CORE | [address] | | | + + + + + PHOSPHORUS, PLASMA (08/02/2014 5:35 AM PST) + +-------+ + + + | Component | Value | Ref Range | Performed | Pathologist | | | | | At | Signature | + +-------+ + + + | PHOSPHORUS, | 2.7 | 2.4 - 4.7 mg/dL | [facility] | | | PLASMA | | | LABORATORY | | | (LAB) | | | SERVICES, | | | | | | CORE | | + +-------+ + + + + + | Specimen | + + | Blood - Blood | + + + + + + + | Performing | Address | City/State/Zipcode | Phone Number | | Organization | | | | + + + + + | [facility] | [address] | [place] [address] | | | SERVICES, CORE | [address] | | | + + + + + MAGNESIUM, PLASMA (08/02/2014 5:35 AM PST) + +---------+ + + + | Component | Value | Ref Range | Performed | Pathologist | | | | | At | Signature | + +---------+ + + + | MAGNESIUM,P | 1.3 (L) | 1.8 - 2.5 mg/dL | [facility] | | | LASMA | | | LABORATORY | | | | | | SERVICES, | | | | | | CORE | | + +---------+ + + + + + | Specimen | + + | Blood - Blood | + + + + + + + | Performing | Address | City/State/Zipcode | Phone Number | | Organization | | | | + + + + + | [facility] | [address] | [place] [address] | | | SERVICES, CORE | [address] | | | + + + + + BASIC METABOLIC SET (NA, K, CL, TCO2, BUN, CR, GLU, CA) (08/02/2014 5:35 AM PST) + +---------+ + + + | Component | Value | Ref Range | Performed | Pathologist | | | | | At | Signature | + +---------+ + + + | GLUCOSE, | 87 | 60 - 99 mg/dL | [facility] | | | PLASMA | | | LABORATORY | | | (LAB) | | | SERVICES, | | | | | | CORE | | + +---------+ + + + | BUN, PLASMA | 15 | 6 - 20 mg/dL | [facility] | | | (LAB) | | | LABORATORY | | | | | | SERVICES, | | | | | | CORE | | + +---------+ + + + | CREATININE | 0.91 | 0.70 - 1.30 | [facility] | | | PLASMA | | mg/dL | LABORATORY | | | (LAB) | | | SERVICES, | | | | | | CORE | | + +---------+ + + + | EGFR | >60 | >60 mL/min | [facility] | | | - | | | LABORATORY | | | [place] | | | SERVICES, | | | | | | CORE | | + +---------+ + + + | EGFR NON | >60 | >60 mL/min | [facility] | | | -ANDR[facility] | | | LABORATORY | | | [facility] | | | SERVICES, | | | | | | CORE | | + +---------+ + + + | SODIUM, | 137 | 136 - 145 | [facility] | | | PLASMA | | mmol/L | LABORATORY | | | (LAB) | | | SERVICES, | | | | | | CORE | | + +---------+ + + + | POTASSIUM, | 4.0 | 3.4 - 5.0 | [facility] | | | PLASMA | | mmol/L | LABORATORY | | | (LAB) | | | SERVICES, | | | | | | CORE | | + +---------+ + + + | CHLORIDE, | 105 | 97 - 108 mmol/L | [facility] | | | PLASMA | | | LABORATORY | | | (LAB) | | | SERVICES, | | | | | | CORE | | + +---------+ + + + | TOTAL CO2, | 26 | 21 - 32 mmol/L | [facility] | | | PLASMA | | | LABORATORY | | | (LAB) | | | SERVICES, | | | | | | CORE | | + +---------+ + + + | CALCIUM, | 8.1 (L) | 8.6 - 10.2 | [facility] | | | PLASMA | | mg/dL | LABORATORY | | | (LAB) | | | SERVICES, | | | | | | CORE | | + +---------+ + + + | ANION GAP | 6 | mmol/L | [facility] | | | | | | LABORATORY | | | | | | SERVICES, | | | | | | CORE | | + +---------+ + + + | POTASSIUM | No Hemo | | [facility] | | | CMNT | | | LABORATORY | | | | | | SERVICES, | | | | | | CORE | | + +---------+ + + + + + | Specimen | + + | Blood - Blood | + + + + + | Narrative | Performed At | + + + | GFR is estimated using the MDRD equation recommended by the | [facility] | | National Kidney Disease Education Program. Estimated GFR | LABORATORY | | Interpretive Information: <60 mL/min/1.73 sq m | [facility], CORE | | Chronic Kidney Disease <15 mL/min/1.73 sq m | | | Kidney Failure Estimated GFR greater that 60 mL/min/1.73 sq m is of | | | limited clinical value. The MDRD equation is not valid in the | | | following situations: - Patients under 18 years of age - Severe | | | malnutrition or obesity - Vegetarian diet - Rapidly changing kidney | | | function | | + + + + + + + + | Performing | Address | City/State/Zipcode | Phone Number | | Organization | | | | + + + + + | [facility] | [address] | [place] [address] | | | [facility] [place] [place] | [address] | | | + + + + + SURGICAL PATHOLOGY (08/01/2014) + + + + + + | Component | Value | Ref Range | Performed | Pathologist | | | | | At | Signature | + + + + + + | SURGICAL | SOURCE OF SPECIMEN:A | | [facility] | | | PATHOLOGY | Right pelvic lymph | | DEPARTMENT | | | | nodeSOURCE OF SPECIMEN:B | | OF | | | | Left pelvic lymph | | PATHOLOGY | | | | nodeSOURCE OF SPECIMEN:C | | | | | | Prostate Final | | | | | | Pathologic Diagnosis:A: | | | | | | Right pelvic lymph | | | | | | nodes, dissection: | | | | | | - Four lymph nodes, | | | | | | negative for malignancy | | | | | | (0/4) B: Left | | | | | | pelvic lymph nodes, | | | | | | dissection: - Six | | | | | | lymph nodes, negative | | | | | | for malignancy (0/6) | | | | | | C: Prostate, | | | | | | prostatectomy: - | | | | | | Prostatic | | | | | | adenocarcinoma, [place] | | | | | | grade 4 + 3 = 7, | | | | | | involvingbilateral lobes | | | | | | and seminal | | | | | | vesicles. bladder base, | | | | | | and apex - Single | | | | | | minute microscopic focus | | | | | | of carcinoma present at | | | | | | the leftanterior inked | | | | | | margin | | | | | | (block #[id number]), other | | | | | | margins are negativefor | | | | | | tumor - | | | | | | Extraprostatic extension | | | | | | present - | | | | | | Perineural invasion | | | | | | present - | | | | | | Angiolymphatic invasion | | | | | | present - | | | | | | Bilateral vasa | | | | | | deferentia, negative for | | | | | | malignancy - AJCC | | | | | | pathologic stage (7th | | | | | | edition): pT3b N0 | | | | | | Case seen by:Estela | | | | | | Morena Addison, | | | | | | Ph.D./Surgical Pathology | | | | | | ResidentS. Juan Carlos | | | | | | Gultekin, | | | | | | M.D./PathologistT:11/ | | | | | | 14/rdl | | | | | | Prostate Gland Cancer | | | | | | SynopsisProcedure: | | | | | | Radical | | | | | | prostatectomyProstate | | | | | | Size: Weight: | | | | | | 44.7gSize: 4 x 4 x | | | | | | 3.5cmLymph Node | | | | | | Sampling: Pelvic | | | | | | lymph node | | | | | | dissectionHistologic | | | | | | Type: | | | | | | Adenocarcinoma | | | | | | (acinar, not otherwise | | | | | | specified)Histologic | | | | | | Grade: Primary | | | | | | Pattern Grade: | | | | | | 4Secondary Pattern | | | | | | Grade: 3Total [place] | | | | | | Score: 7Tumor | | | | | | Quantitation: Percent of | | | | | | prostate involved by | | | | | | tumor: | | | | | | 60%Extraprostatic | | | | | | Extension: | | | | | | PresentSeminal Vesicle | | | | | | Invasion: | | | | | | PresentBilateralMargins: | | | | | | Positive for invasive | | | | | | | | | | | | carcinomaUnifocalAnterio | | | | | | rTreatment Effect on | | | | | | Carcinoma: Not | | | | | | identifiedAngiolymphatic | | | | | | Invasion: | | | | | | PresentPerineural | | | | | | Invasion: | | | | | | PresentAJCC Stage (7th | | | | | | Edition) (pTNM)Primary | | | | | | Tumor (pT): | | | | | | lH5zSefoftux Lymph Nodes | | | | | | (pN): rI7Ryxtau of | | | | | | regional lymph nodes | | | | | | examined: | | | | | | 10Distant Metastasis | | | | | | (pM): Not applicable | | | | | | Clinical History:The | | | | | | patient is a 49-year-old | | | | | | male with prostate | | | | | | cancer. Gross | | | | | | Description:Received are | | | | | | 3 specimens fresh in | | | | | | containers labeled with | | | | | | the patient'sname | | | | | | (initials DF) and: | | | | | | A: Right pelvic lymph | | | | | | node: Received are | | | | | | multiple yellow, soft | | | | | | tissuemeasuring 3.5 x | | | | | | 3.4 x 2.5 cm in | | | | | | aggregate. Four | | | | | | possible lymph nodes | | | | | | areidentified. The | | | | | | lymph nodes range from | | | | | | 0.4 cm to 3.5 cm. All | | | | | | possiblelymph nodes are | | | | | | submitted. | | | | | | Efficiency Manager | | | | | | sections are submitted. | | | | | | B: Left pelvic | | | | | | lymph node: Received | | | | | | are 2 oriented, soft, | | | | | | yellow tissues,measuring | | | | | | 4.7 x 3.7 x 1.8 cm in | | | | | | aggregate. Six | | | | | | possible lymph nodes | | | | | | areidentified. The | | | | | | lymph nodes range in | | | | | | size from 0.3 cm to 5.6 | | | | | | cm. Allpossible lymph | | | | | | nodes are submitted. | | | | | | Efficiency Manager | | | | | | sections are submitted. | | | | | | C: | | | | | | Prostate: | | | | | | Weight: 44.7 | | | | | | gramsSize: | | | | | | 4 (SI) x 4 (RL) | | | | | | x 3.5 (AP) cmAnterior | | | | | | staple line: 2 cm | | | | | | in lengthInking scheme: | | | | | | Right anterior | | | | | | inked green, left | | | | | | anterior inked | | | | | | blue,posterior inked | | | | | | blackExterior surface: | | | | | | RoughenedRight vas: | | | | | | 3 (L) x | | | | | | 0.5 (D) cmLeft vas: | | | | | | 2.4 (L) x | | | | | | 0.5 (D) cmRight seminal | | | | | | vesicle: 3.5 x 1.6 x | | | | | | 0.8 cmLeft seminal | | | | | | vesicle: 3 x 1.8 x | | | | | | 0.7 cmLesion: | | | | | | Size: 3 x | | | | | | 2.5 x 2 cm Color: | | | | | | Yellow, | | | | | | indurated Shape: | | | | | | Ill-defined | | | | | | Location: | | | | | | Involving bilateral | | | | | | lobeRemaining | | | | | | parenchyma: | | | | | | Unremarkable The | | | | | | bladder base/proximal | | | | | | urethra and | | | | | | apical/distal urethra | | | | | | margins areremoved en | | | | | | face, then radially | | | | | | sectioned and entirely | | | | | | submitted. Vasmargins | | | | | | are entirely submitted. | | | | | | Efficiency Manager | | | | | | sections of the | | | | | | remainingtissue are | | | | | | submitted. The | | | | | | specimen is sampled for | | | | | | [employer] | | | | | | and approximately 50% | | | | | | of the prostate is | | | | | | submitted forhistology. | | | | | | Cassette Index:A: | | | | | | Right pelvic lymph | | | | | | node:A1-2, one possible | | | | | | lymph node, | | | | | | quadrisectedA3, three | | | | | | possible lymph nodesB: | | | | | | Left pelvic lymph | | | | | | node:B1-2, one possible | | | | | | lymph nodes, | | | | | | quadrisectedB3, five | | | | | | possible lymph nodesC: | | | | | | Prostate:C1, entire | | | | | | bladder base/proximal | | | | | | urethral margin, en | | | | | | faceC2, entire | | | | | | apical/distal urethral | | | | | | margin, en faceC3, right | | | | | | vas margin, en face, | | | | | | longitudinal section | | | | | | seminal vesicle | | | | | | intoprostateC4, left vas | | | | | | margin, en face, | | | | | | longitudinal section | | | | | | seminal vesicle | | | | | | intoprostateC5-6, left | | | | | | baseC7-8, left midC9-10, | | | | | | left tnblJ24-86, right | | | | | | [id number], right | | | | | | zfpR54-88, right | | | | | | apexYW/yaya My | | | | | | electronic signature | | | | | | indicates that I have | | | | | | personally reviewed | | | | | | alldiagnostic slides, | | | | | | the gross and/or | | | | | | microscopic portion of | | | | | | thisreport and | | | | | | formulated the final | | | | | | diagnosis. | | | | | | Rendering Diagnostician: | | | | | | Donavan Velazquez | | | | | | Ha | | | | | | poli Signed 08/09/2014 | | | | | | 11:40AM | | | | + + + + + + + + | Specimen | + + | | + + + + + + + | Performing | Address | City/State/Zipcode | Phone Number | | Organization | | | | + + + + + | [facility] | [address] | [place] [address] | | | PATHOLOGY | [address] | | | + [...] | | | + +--------+ +--------+------+------+ | acetaminophen (TYLENOL) tablet | Given | 08/01/20 | 650 mg | | | | 325-650 mg 325-650 mg, oral, | | 14 5:12 | | | | | EVERY 4 HOURS NEEDED, Starting | | PM PST | | | | | Erma 08/01/14 at 1707, Until Sun | | | | | | | 08/04/14 at 1615, mild pain | | | | | | + +--------+ +--------+------+------+ + +---+ | | | + +---+ | acetaminophen (TYLENOL) tablet | | | 1 dose, Starting Erma 08/01/14 at | | | 1710, Until Erma 08/01/14 at 1712 | | + +---+ | | | + +---+ + +---------+ +--------+---+---+ | fentaNYL citrate (PF) | New Bag | 08/01/20 | 50 mcg | | | | (SUBLIMAZE) injection 50 mcg 50 | | 14 5:03 | | | | | mcg, intravenous, POSTPROCEDURE | | PM PST | | | | | PRN, 4 doses, Starting Erma | | | | | | | 08/01/14 at 1400, Until Erma | | | | | | | 08/01/14 at 1703, severe pain | | | | | | + +---------+ +--------+---+---+ +---------+ +--------+---+---+ | New Bag | 08/01/20 | 50 mcg | | | | | 14 4:48 | | | | | | PM PST | | | | +---------+ +--------+---+---+ | New Bag | 08/01/20 | 50 mcg | | | | | 14 4:37 | | | | | | PM PST | | | | +---------+ +--------+---+---+ + +---+ | | | + +---+ | fentaNYL citrate (PF) | | | (SUBLIMAZE) injection 1 dose, | | | Starting Erma 08/01/14 at 1612, | | | Until Erma 08/01/14 at 1622 | | + +---+ | | | + +---+ + +---------+ +--------+---+---+ | HYDROmorphone (DILAUDID) | New Bag | 08/04/20 | 0.2 mg | | | | injection 0.2-0.4 mg 0.2-0.4 mg, | | 14 10:02 | | | | | intravenous, EVERY 2 HOURS | | AM PST | | | | | NEEDED, Starting Erma 08/01/14 at | | | | | | | 1843, Until 08/04/14 at 1615, | | | | | | | severe pain | | | | | | + +---------+ +--------+---+---+ +---------+ +--------+---+---+ | New Bag | 08/04/20 | 0.2 mg | | | | | 14 1:34 | | | | | | AM PST | | | | +---------+ +--------+---+---+ | New Bag | 08/02/20 | 0.2 mg | | | | | 14 6:50 | | | | | | AM PST | | | | +---------+ +--------+---+---+ +---+---+ | | | +---+---+ + +---------+ +--------+---+---+ | HYDROmorphone (DILAUDID) | New Bag | 08/01/20 | 0.5 mg | | | | injection 0.2-0.5 mg 0.2-0.5 mg, | | 14 3:55 | | | | | intravenous, POSTPROCEDURE PRN, | | PM PST | | | | | Starting Erma 08/01/14 at 1400, | | | | | | | Until Erma 08/01/14 at 1839, | | | | | | | moderate pain | | | | | | + +---------+ +--------+---+---+ +---------+ +--------+---+---+ | New Bag | 08/01/20 | 0.4 mg | | | | | 14 3:35 | | | | | | PM PST | | | | +---------+ +--------+---+---+ + +---+ | | | + +---+ | HYDROmorphone (DILAUDID) | | | injection 1 dose, Starting Erma | | | 08/01/14 at 1524, Until Erma | | | 08/01/14 at 1535 | | + +---+ | | | + +---+ + +-------+ +--------+---+--------+ | influenza vaccine (FLUZONE) | Given | 08/03/20 | 0.5 mL | | Right | | (PF) IM injection (age 3 years or | | 14 12:51 | | | Arm | | greater) 0.5 mL 0.5 mL, | | PM PST | | | | | intramuscular, ONE TIME IN THE | | | | | | | MORNING, 1 dose, First dose on | | | | | | | 08/03/14 at 0900 | | | | | | + +-------+ +--------+---+--------+ +---+---+ | | | +---+---+ + +---------+ +-------+---+---+ | ketorolac (TORADOL) injection | New Bag | 08/03/20 | 30 mg | | | | 30 mg 30 mg, intravenous, EVERY | | 14 9:11 | | | | | 6 HOURS, 6 doses, First dose on | | PM PST | | | | | 08/02/14 at 0815, Last dose on | | | | | | | 08/03/14 at 1800 | | | | | | + +---------+ +-------+---+---+ +---------+ +-------+---+---+ | New Bag | 08/03/20 | 30 mg | | | | | 14 12:51 | | | | | | PM PST | | | | +---------+ +-------+---+---+ | New Bag | 08/03/20 | 30 mg | | | | | 14 6:22 | | | | | | AM PST | | | | +---------+ +-------+---+---+ +---+---+ | | | +---+---+ + +---------+ +-------+-------+---+ | lactated ringers IV 100 mL/hr, | New Bag | 08/01/20 | 100 | 100 | | | intravenous, CONTINUOUS, | | 14 6:58 | mL/hr | mL/hr | | | Starting Erma 08/01/14 at 1845, | | PM PST | | | | | Until Tue08/02/14 at 0744 | | | | | | + +---------+ +-------+-------+---+ +---+---+ | | | +---+---+ + +---------+ + + +---+ | lactated ringers IV 75 mL/hr, | New Bag | 08/02/20 | 75 mL/hr | 75 mL/hr | | | intravenous, CONTINUOUS, Starting | | 14 12:12 | | | | | 08/02/14 at 0745, Until Sat | | PM PST | | | | | 08/03/14 at 0611 | | | | | | + +---------+ + + +---+ +---+---+ | | | +---+---+ + +-------+ +--------+---+---+ | lidocaine (XYLOCAINE) 10 mg/mL | Given | 08/01/20 | 0.1 mL | | | | (1 %) injection subcutaneous, | | 14 10:29 | | | | | PREPROCEDURE PRN, Starting Erma | | AM PST | | | | | 08/01/14 at 0821, Until Erma | | | | | | | 08/01/14 at 1839, IV start | | | | | | + +-------+ +--------+---+---+ +---+---+ | | | +---+---+ + +-------+ +-------+---+---+ | lisinopril (PRINIVIL) tablet 10 | Given | 08/04/20 | 10 mg | | | | mg 10 mg, oral, DAILY, First | | 14 8:05 | | | | | dose on [facility] 08/01/14 at 1730, | | AM PST | | | | | Until Discontinued | | | | | | + +-------+ +-------+---+---+ +-------+ +-------+---+---+ | Given | 08/03/20 | 10 mg | | | | | 14 8:01 | | | | | | AM PST | | | | +-------+ +-------+---+---+ | Given | 08/02/20 | 10 mg | | | | | 14 7:51 | | | | | | AM PST | | | | +-------+ +-------+---+---+ +---+---+ | | | +---+---+ + +---------+ +-----+---+---+ | magnesium sulfate IV (RTU) 2 g | New Bag | 08/02/20 | 2 g | | | | 2 g, intravenous, ONCE, 1 dose, | | 14 7:51 | | | | | 08/02/14 at 0715 | | AM PST | | | | + +---------+ +-----+---+---+ +---+---+ | | | +---+---+ + +---------+ +-----+---+---+ | magnesium sulfate IV (RTU) 2 g | New | 08/03/20 | 2 g | | | | 2 g, intravenous, ONCE, 1 dose, | | 14 8:01 | | | | | 08/03/14 at 0815 | | AM PST | | | | + +---------+ +-----+---+---+ +---+---+ | | | +---+---+ + +-------+ +------+---+---+ | oxybutynin (DITROPAN) tablet 5 | Given | 08/04/20 | 5 mg | | | | mg 5 mg, oral, THREE TIMES DAILY | | 14 8:05 | | | | | NEEDED, Starting [facility] 08/01/14 | | AM PST | | | | | at 1843, Until 08/04/14 at | | | | | | | 1615, bladder spasms | | | | | | + +-------+ +------+---+---+ +-------+ +------+---+---+ | Given | 08/03/20 | 5 mg | | | | | 14 8:37 | | | | | | PM PST | | | | +-------+ +------+---+---+ | Given | 08/03/20 | 5 mg | | | | | 14 4:08 | | | | | | AM PST | | | | +-------+ +------+---+---+ +---+---+ | | | +---+---+ + +-------+ +-------+---+---+ | oxyCODONE (immediate release) | Given | 08/04/20 | 15 mg | | | | (ROXICODONE) tablet 5-15 mg 5-15 | | 14 8:05 | | | | | mg, oral, EVERY 3 HOURS | | AM PST | | | | | NEEDED, Starting [facility] 08/01/14 at | | | | | | | 1707, Until 08/04/14 at 1615, | | | | | | | moderate pain, severe pain | | | | | | + +-------+ +-------+---+---+ +-------+ +-------+---+---+ | Given | 08/04/20 | 15 mg | | | | | 14 5:19 | | | | | | AM PST | | | | +-------+ +-------+---+---+ | Given | 08/04/20 | 15 mg | | | | | 14 1:20 | | | | | | AM PST | | | | +-------+ +-------+---+---+ + +---+ | | | + +---+ | oxyCODONE (immediate release) | | | (ROXICODONE) tablet 1 dose, | | | Starting [facility] 08/01/14 at 1711, | | | Until [facility] 08/01/14 at 1712 | | + +---+ | | | + +---+ + +-------+ +------+---+---+ | polyethylene glycol (MIRALAX) | Given | 08/04/20 | 17 g | | | | powder 17 g 17 g, oral, DAILY | | 14 1:36 | | | | | NEEDED, Starting Erma 08/01/14 at | | AM PST | | | | | 1843, Until 08/04/14 at 1615, | | | | | | | constipation, No BM in past 3 | | | | | | | days | | | | | | + +-------+ +------+---+---+ +-------+ +------+---+---+ | Given | 08/03/20 | 17 g | | | | | 14 4:57 | | | | | | PM PST | | | | +-------+ +------+---+---+ +---+---+ | | | +---+---+ + +-------+ + +---+---+ | thad-thomasusate (SENOKOT S) | Given | 08/04/20 | 1 tablet | | | | 8.6-50 mg 1 tablet 1 tablet, | | 14 8:05 | | | | | oral, TWICE DAILY, First dose on | | AM PST | | | | | Erma 08/01/14 at 2100, Until | | | | | | | Discontinued | | | | | | + +-------+ + +---+---+ +-------+ + +---+---+ | Given | 08/03/20 | 1 tablet | | | | | 14 8:37 | | | | | | PM PST | | | | +-------+ + +---+---+ | Given | 08/03/20 | 1 tablet | | | | | 14 8:01 | | | | | | AM PST | | | | +-------+ + +---+---+ +---+---+ | | | +---+---+ + +-------+ +-------+---+---+ | sertraline (ZOLOFT) tablet 50 | Given | 08/04/20 | 50 mg | | | | mg 50 mg, oral, DAILY, First | | 14 8:05 | | | | | dose on Erma 08/01/14 at 1730, | | AM PST | | | | | Until Discontinued | | | | | | + +-------+ +-------+---+---+ +-------+ +-------+---+---+ | Given | 08/03/20 | 50 mg | | | | | 14 8:01 | | | | | | AM PST | | | | +-------+ +-------+---+---+ | Given | 08/02/20 | 50 mg | | | | | 14 7:51 | | | | | | AM PST | | | | +-------+ +-------+---+---+ +---+---+ | | | +---+---+ documented in this encounter
--- OUTSIDE RECORDS SUMMARY | ~2020-06-06 | XMS | Encounter Summary ---
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 | [place] [address] | | | | | | [place], [place] | Phone: | | | | | | [address] | [phone] | | | | | | Phone: | Fax: | | | | | | [phone] | [phone] | | | | | | Fax: | | | | | | | [phone] | | +--------+--------+ + + + + Encounter Details +--------+---------+ + + + | Date | Type | Department | Care Team | Description | +--------+---------+ + + + | 12/29/ | Office | [facility] | Remberto Hurst, | Left carpal tunnel | | 2018 | Visit | ORTHOPEDIC SURGERY | MD [address] | syndrome (Primary | | | | [address] [place] | [place] | Dx) | | | | [place] | [id number] | | | | | [address] | | | | | | [phone] | | | +--------+---------+ + + + [...] + + + + | Weight | 93.4 kg (206 lb) | 12/29/2017 8:34 AM | | | | | PDT | | + + + + + | Height | 175.3 cm (5' 9") | 12/29/2017 8:34 AM | | | | | PDT | | + + + + + | Body Mass Index | 30.42 | 12/29/2017 8:34 AM | | | | | PDT | | + + + + + documented in this encounter Progress Notes Remberto Hurst MD - 12/29/2017 9:00 AM PDTFormatting of this note might be different fro m the original. 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 Weight as of this encounter: 93.4 kg (206 lb). On physical exam he has decreased sensation [...] tunnel release under IV sedation and local The above note was dictated using [employer] voice recognition software. It may have not been p roofread in entirety. Minor errors in grammar may occur. documented in this en counter Miscellaneous Notes Addendum Note - Remberto Hurst MD - 12/29/2017 9:00 AM PDT Addended by: REMBERTO HURST on: 01/02/2018 10:36 Modules accepted: Orders documented in this encounter Plan of Treatment Not on filedocumented as of this encounter Visit Diagnoses + + | Diagnosis | + + | Left carpal tunnel syndrome - Primary Carpal tunnel syndrome | + + documented in this encounter
--- OUTSIDE RECORDS SUMMARY | ~2020-06-06 | XMS | Encounter Summary ---
Demographics + + + | Address | NEED ADDRESS | | | [place] [address] | + + + | Home Phone [...] Author + + + | Author | [facility] | | | and [place] | + + + | Organization | [facility] | | | [...] Hector Garcia | ECON | [place] [address] | | + + + + + Care Team Providers + +------+ + | Care Public Information Director Name | Role | Phone | + +------+ + | Aryan Grossman MD | PCP | | + +------+ + Encounter Details +--------+ + + + + | Date | Type | Department | Care Team | Description | +--------+ + + + + | 12/19/ | Hospital | [facility] | Krishna Isaacs | | | 2014 | Encounter | [facility] | MD Alonso Need updated | | | | | [address] | address [facility], | | | | | [place] | Aryan Velásquez MD [address] | | | | | [address] | [address] | | | | | [phone] | [place] | | | | | | [address] | | | | | | [phone] | | | | | | | [...] tablet by | 90 | 1 | 11/18/19 | | | (PRINIVIL, ZESTRIL) | mouth Daily. | tablet | | 15 | 5 | | 10 mg | | | | | | | tabletIndications: | | | | | | | Essential | | | | | | | hypertension | | | | | | + + + +---------+ + + | naproxen | Take 1 tablet by | 30 | 0 | 12/20/19 | | | (NAPROSYN) 500 mg | mouth 2 times daily | tablet | | 15 | 5 | | tabletIndications: | (with [...] + +---------+ + + | sertraline | Take 1 tablet by | 90 | 1 | 11/18/19 | | | (ZOLOFT) 100 mg | mouth Daily. | tablet | | 15 | 5 | | tabletIndications: | | | | | | | Depression | | | | | | + + + +---------+ + + documented as of this encounter Plan of Treatment Not on filedocumented as of this encounter Visit Diagnoses Not on filedocumented in this encounter"
--- OUTSIDE RECORDS SUMMARY | ~2020-06-06 | XMS | Encounter Summary ---
Demographics + + + | Address | NEED ADDRESS | | | [place] [address] | + + + | Home Phone [...] + | Hector Garcia | ECON | [place] [address] | | + + + + + Care Team Providers + +------+ + | Care Heavy Machinery Assembler Name | Role | Phone | [...] Closed | | Radiology | Diagnoses | Seun, | | | | | | Malignant | [facility]a | | | | | | neoplasm of | MD Guillermina | | | | | | prostate | [address] | | | | | | (HCC) | [place], | | | | | | Procedures | [place] | | | | | | CT Chest | [address] | | | | | | Abdomen | Phone: | | | | | | Pelvis w | [phone] | | | | | | Contrast | Fax: | | | | | | | [phone] | | +--------+--------+ + + + + Reason for Visit Diagnostic/Screening (Routine) +--------+--------+ + + + + | Status | Reason | Specialty | Diagnoses / | Referred By | Referred To | | | | | Procedures | Contact | Contact | +--------+--------+ + + + + | Closed | | Radiology | Diagnoses | Seun, | | | | | | Malignant | [facility] | | | | | | neoplasm of | MD Guillermina | | | | | | prostate | [address] | | | | | | (HCC) | [place], | | | | | | Procedures | [place] | | | | | | CT Chest | [address] | | | | | | Abdomen | Phone: | | | | | | Pelvis w | [phone] | | | | | | Contrast | Fax: | | | | | | | [phone] | | +--------+--------+ + + + + Encounter Details +--------+ + + + + | Date | Type | Department | Care Team | Description | +--------+ + + + + | 07/18/ | Hospital | [facility] | Columba Kohli | Malignant neoplasm | | 2013 | Encounter | MED CTR [address] | MD Guillermina [address] | of prostate (HCC) | | | | [place], | [address] [place], [place] | | | | | [place] [address] | [address] | | | | | [phone] | [phone] | | | | | | | | | | | | Zeeshan Zelaya, | | | | | | MD [address] [facility] | | | | | | [place], [place] | | | | | | [address] | | | | | | | [...] + + + +---------+ + + | bicalutamide | Take 1 tablet by | 30 | 2 | 07/01/20 | | | (CASODEX) 50 mg | mouth Daily. | tablet | | 14 | 5 | | tablet | | | | [...] naproxen | Take 1 tablet by | 60 | 2 | 05/31/20 | | | (NAPROSYN) 500 mg | mouth 2 times daily | tablet | | 14 | 5 | | tabletIndications: | (with breakfast & | | | | | | Osteoarthritis | dinner). | | | | | + + [...] + | sertraline | One po qd for two | 90 | 1 | 07/12/20 | | | (ZOLOFT) 50 mg | weeks then two po qd | tablet | | 14 | 4 | | tabletIndications: | thereafter. | | | | | | Depression | | | | | | + + + +---------+ + + | varenicline | Take one 0.5mg | 53 | 0 | 07/12/20 | | | (CHANTIX STARTING | tablet by mouth once | tablet | | 14 | 5 | | MONTH BOY) 0.5 MG X | daily for 3 days, | | | | | | 11 & 1 MG X 42 | then increase to one | | | | | | tabletIndications: | 0.5mg tablet twice | | | | | | Nicotine addiction | daily for 3 days, | | | | | | | then increase to one | | | | | | | 1mg tablet twice | | | | | | | daily. | | | | | + + + +---------+ + + documented as of this encounter Miscellaneous Notes Miscellaneous - ERIC TORRES [facility] - 07/31/2014 12:00 AM PST documented in this encounter Plan of Treatment Not on filedocumented as of this encounter Procedures + +--------+ + + + | Procedure Name | Priori | Date/Time | Associated Diagnosis | Comments | | | ty | | | | + +--------+ + + + | CT CHEST ABDOMEN | Routin | 07/18/2014 | Malignant neoplasm | Results for this | | PELVIS W CONTRAST | e | 10:49 AM | of prostate (HCC) | procedure are in the | | | | PDT | | results section. | + +--------+ + + + documented in this encounter Results CT Chest Abdomen Pelvis w Contrast (07/18/2014 10:49 AM PDT) + + | Specimen | + + | | + + + + + | Narrative | Performed At | + + + | CT CHEST ABDOMEN PELVIS W CONTRAST . 07/18/2014 10:40 AM | [facility] | | HISTORY: PROSTATE CA COMPARISON: CT abdomen pelvis | LAB | | 02/21/2014 TECHNIQUE: Axial images were obtained from the base of | | | the neck to the inferior pelvis following the uneventful intravenous | | | administration of 90 mL Omnipaque 350 contrast. Oral Multiplanar | | | reformatted images created. FINDINGS: CHEST: The structures | | | at the base of the neck are unremarkable. No pathologically enlarged | | | mediastinal lymph nodes are evident. The esophagus is within normal | | | limits. The trachea is within normal limits. Ectatic ascending aorta | | | . Vessels branching from the aorta are within normal limits. The | | | pulmonary arterial structures are within normal limits. The heart is | | | within normal limits, without pericardial effusion. Azygos fissure | | | is noted in the right upper lobe, with a focal area of pleural | | | calcification. Approximately 5 mm pleural-based left lower lobe | | | pulmonary nodule within the fissure in the mid left lung, series 4, | | | image 44. Lungs are otherwise unremarkable. No pleural effusion or | | | pneumothorax is seen. ABDOMEN/PELVIS: Faint, approximately 6 | | | mm hypodensity again seen in the left lobe of the liver , too small | | | to accurately characterize, unchanged as compared with 02/21/2014 . | | | Liver is otherwise unremarkable. The gallbladder, pancreas, and | | | spleen are within normal limits. Adrenal glands are stable, with an | | | approximately 1 cm low density nodule in the right adrenal gland | | | compatible with adrenal adenoma. Both kidneys are within normal | | | limits, without stone or hydronephrosis. No ureteral abnormalities. | | | The stomach, duodenum, and small bowel are within normal limits. | | | There are scattered diverticula predominantly in the sigmoid colon, | | | without evidence of diverticulitis. Large bowel is otherwise | | | unremarkable. The ileocecal junction is within normal limits. The | | | appendix is within normal limits. There is no free intraperitoneal | | | air or fluid. No pathologically enlarged abdominal or pelvic lymph | | | nodes. There is scattered vascular calcification. The abdominal and | | | pelvic vascular structures are otherwise unremarkable. The | | | bladder is decompressed and is otherwise unremarkable in appearance. | | | Prostate is not significantly enlarged and does not exhibit contour | | | abnormality. Seminal vesicles are unremarkable. Diffuse | | | degenerative disc disease. There is straightening of the lumbar | | | lordosis and thoracic kyphosis. Decreased disc height at L4-5 and | | | L5-S1, with endplate sclerotic change, osteophyte formation, and | | | vacuum disc phenomenon seen at these levels. Retrolisthesis of L4 | | | on L5 and of L5 on S1. No overt lytic or blastic lesions are seen. | | | Bilateral gynecomastia. Fat-containing inguinal hernia seen on the | | | right, noninflamed. The subcutaneous soft tissues and muscles are | | | otherwise unremarkable. IMPRESSION - Stable approximately 1 | | | cm hypoattenuating lesion in the right adrenal gland compatible with | | | adrenal adenoma. Scattered diverticula without evidence of | | | diverticulitis. Small, thin left lower lobe pleural-based nodule | | | in the fissure measuring 5 mm in maximal diameter. Small | | | pulmonary nodules are a common finding on chest CT. The incidence of | | | malignancy in such nodules is small, and even in smokers is between 1% | | | and 5%, comparable to the baseline risk of cancer in a smoker. PET | | | scanning and percutaneous needle biopsy are not reliable to diagnose | | | malignancy in such a small nodule, and the risk of thoracoscopy and | | | surgery is generally comparable or greater than the risk of cancer in | | | the nodule. Because of this, we recommend managing such a nodule | | | with follow-up CT. In a nonsmoker, we recommend follow-up CT | | | examinations at 12 and 24 months. In a smoker, we recommend follow-up | | | CT examination at 6, 12, and 24 months. The examination should be | | | ordered as a low-dose, unenhanced chest CT. (Recommendations to | | | right from "Guidelines for Management of Small Pulmonary Nodules | | | Detected on CT Scans: A Statement from the Fleischner Society", | | | Radiology 2005; 237, 395-400.) Dictated and Signed by: Nabeel | | | MD Nathalie Electronically signed: 07/18/2014 12:20 PM | | + + + + + | Procedure Note | + + | Frank, Rad Results In - 07/18/2014 12:[address] CHEST ABDOMEN PELVIS W CONTRAST . | | 07/18/2014 10:40 AM HISTORY: PROSTATE CA COMPARISON: CT abdomen pelvis 02/21/2014 | | TECHNIQUE: Axial images were obtained from the base of the neck to the inferiorpelvis | | following the uneventful intravenous administration of 90 mL [id number] contrast. | | Oral Multiplanar reformatted images created.FINDINGS: CHEST:The structures at the base | | of the neck are unremarkable.No pathologically enlarged mediastinal lymph nodes are | | evident.The esophagus is within normal limits.The trachea is within normal | | limits.Ectatic ascending aorta . Vessels branching from the aorta are within | | normallimits.The pulmonary arterial structures are within normal limits.The heart is | | within normal limits, without pericardial effusion.Azygos fissure is noted in the right | | upper lobe, with a focal area of pleuralcalcification.Approximately 5 mm pleural-based | | left lower lobe pulmonary nodule within thefissure in the mid left lung, series 4, image | | 44.Lungs are otherwise unremarkable.No pleural effusion or pneumothorax is | | seen.ABDOMEN/PELVIS:Faint, approximately 6 mm hypodensity again seen in the left lobe of | | the liver ,too small to accurately characterize, unchanged as compared with 02/21/2014 . | | Liver is otherwise unremarkable. The gallbladder, pancreas, and spleen arewithin | | normal limits.Adrenal glands are stable, with an approximately 1 cm low density nodule | | in theright adrenal gland compatible with adrenal adenoma. Both kidneys are within | | normal limits, without stone or hydronephrosis.No ureteral abnormalities.The stomach, | | duodenum, and small bowel are within normal limits.There are scattered diverticula | | predominantly in the sigmoid colon, withoutevidence of diverticulitis. Large bowel is | | otherwise unremarkable.The ileocecal junction is within normal limits.The appendix is | | within normal limits.There is no free intraperitoneal air or fluid.No pathologically | | enlarged abdominal or pelvic lymph nodes.There is scattered vascular calcification. The | | abdominal and pelvic vascularstructures are otherwise unremarkable.The bladder is | | decompressed and is otherwise unremarkable in appearance.Prostate is not significantly | | enlarged and does not exhibit contour abnormality. Seminal vesicles are | | unremarkable.Diffuse degenerative disc disease. There is straightening of the | | lumbarlordosis and thoracic kyphosis. Decreased disc height at L4-5 and L5-S1, | | withendplate sclerotic change, osteophyte formation, and vacuum disc phenomenon seenat | | these levels. Retrolisthesis of L4 on L5 and of L5 on S1. No overt lytic orblastic | | lesions are seen.Bilateral gynecomastia. Fat-containing inguinal hernia seen on the | | right,noninflamed. The subcutaneous soft tissues and muscles are otherwiseunremarkable. | | IMPRESSION - Stable approximately 1 cm hypoattenuating lesion in the right adrenal | | glandcompatible with adrenal adenoma.Scattered diverticula without evidence of | | diverticulitis.Small, thin left lower lobe pleural-based nodule in the fissure measuring | | 5 mmin maximal diameter.Small pulmonary nodules are a common finding on chest CT. The | | incidence ofmalignancy in such nodules is small, and even in smokers is between 1% and | | 5%,comparable to the baseline risk of cancer in a smoker. PET scanning andpercutaneous | | needle biopsy are not reliable to diagnose malignancy in such asmall nodule, and the | | risk of thoracoscopy and surgery is generally comparableor greater than the risk of | | cancer in the nodule. Because of this, we recommendmanaging such a nodule with follow-up | | CT. In a nonsmoker, we recommend follow-upCT examinations at 12 and 24 months. In a | | smoker, we recommend follow-up CTexamination at 6, 12, and 24 months. The examination | | should be ordered as alow-dose, unenhanced chest CT.(Recommendations to right from | | "Guidelines for Management of Small PulmonaryNodules Detected on CT Scans: A Statement | | from the Fleischner Society",Radiology 2005; 237, 395-400.)Dictated and Signed by: Nabeel | | MD Nathalie Electronically signed: 07/18/2014 12:20 PM | |There is scattered vascular calcification. The abdominal and pelvic vascular | |structures are otherwise unremarkable. | | | |The bladder is decompressed and is otherwise unremarkable in appearance. | |Prostate is not significantly enlarged and does not exhibit contour abnormality. | | Seminal vesicles are unremarkable. | | | |Diffuse degenerative disc disease. There is straightening of the lumbar | |lordosis and thoracic kyphosis. Decreased disc height at L4-5 and L5-S1, with | |endplate sclerotic change, osteophyte formation, and vacuum disc phenomenon seen | |at these levels. Retrolisthesis of L4 on L5 and of L5 on S1. No overt lytic or | |blastic lesions are seen. | |Bilateral gynecomastia. Fat-containing inguinal hernia seen on the right, | |noninflamed. The subcutaneous soft tissues and muscles are otherwise | |unremarkable. | | | |IMPRESSION - | |Stable approximately 1 cm hypoattenuating lesion in the right adrenal gland | |compatible with adrenal adenoma. | |Scattered diverticula without evidence of diverticulitis. | | | |Small, thin left lower lobe pleural-based nodule in the fissure measuring 5 mm | |in maximal diameter. | | | |Small pulmonary nodules are a common finding on chest CT. The incidence of | |malignancy in such nodules is small, and even in smokers is between 1% and 5%, | |comparable to the baseline risk of cancer in a smoker. PET scanning and | |percutaneous needle biopsy are not reliable to diagnose malignancy in such a | |small nodule, and the risk of thoracoscopy and surgery is generally comparable | |or greater than the risk of cancer in the nodule. Because of this, we recommend | |managing such a nodule with follow-up CT. In a nonsmoker, we recommend follow-up | |CT examinations at 12 and 24 months. In a smoker, we recommend follow-up CT | |examination at 6, 12, and 24 months. The examination should be ordered as a | |low-dose, unenhanced chest CT. | | | |(Recommendations to right from "Guidelines for Management of Small Pulmonary | |Nodules Detected on CT Scans: A Statement from the Fleischner Society", | |Radiology 2005; 237, 395-400.) | | | |Dictated and Signed by: Nabeel Zealya MD | | Electronically signed: 07/18/2014 12:20 PM | + + + +---------+ + + | Performing | Address | City/State/Zipcode | Phone Number | | Organization | | | | + +---------+ + + | [facility] | | | [phone] | + +---------+ + + | [facility] | | | [phone] | + +---------+ + + documented in this encounter Visit Diagnoses + + | Diagnosis | + + | Malignant neoplasm of prostate (HCC) Malignant neoplasm of prostate | + + documented in this encounter Administered Medications + +--------+ +--------+------+------+ | Medication Order | MAR | Action | Dose | Rate | Site | | | Action | Date | | | | + +--------+ +--------+------+------+ | iohexol (OMNIPAQUE 350) 350 | Given | 07/18/20 | 90 mLs | | | | mg/mL injection 90 mL 90 mL, | | 14 10:46 | | | | | Intravenous, ONCE PRN, Other, | | AM PDT | | | | | Starting [facility] 07/18/14 at 1040, | | | | | | | For 1 dose, Cat Scanner | | | | | | + +--------+ +--------+------+------+ +---+---+ | | | +---+---+ documented in this encounter
--- OUTSIDE RECORDS SUMMARY | ~2020-06-06 | XMS | Encounter Summary ---
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 and increase safety and independence with activities necessary for safe discharge. Refer be low for specific details regarding functional levels. Physical Therapy Discharge Recommendations are: Recommended discharge disposition: care home facility(pt requests SNF due to no assi st at home) Post discharge physical therapy recommendation: ongoing low intensity therapy, will benefi t from structured setting Equipment Recommendations: 2 wheeled walker (FWW) Planned Interventions: balance training, bed mobility training, gait training, neuromuscul ar re-education, patient/family education, postural re-education Recommended Frequency: daily Patient Status/Goals: Reflects last filed data and may be from multiple contributors. Gait CGA for imbalance and pain. Level of [place]: contact guard assist Assistive Device: 2 wheeled walker (FWW) Distance (feet): 135 feet x 2 Gait Pattern Analysis: 2-point gait Gait Deviations: step length decreased, stride length decreased, double stance time increas ed Impairments: decreased flexibility, pain Stairs Contact guard assist using 2-rails. Number of Stairs: 4 x 2 Handrail Location: both sides Level of [place]: contact guard assist Assistive Device: 2 rails Technique Used: step to step (ascending), step to step (descending) Safety Issues: weight-shifting ability decreased Impairments: ROM decreased, impaired balance Transfers No physical assist, CGA for safety. VC for upright posture. completed toilet transfer with CGA. Sit-Stand, Level of [place]: contact guard assist, verbal cues required Stand-Sit, Level of [place]: verbal cues required, stand by assist [id number], Assistive Device: 2 wheeled walker (FWW) Toilet, Level of [place]: stand by assist, verbal cues required Toilet, Assistive Device: 2 wheeled walker (FWW), grab bars Safety Issues: step length decreased, weight-shifting ability decreased Impairments: decreased flexibility, pain, impaired balance, ROM decreased Bed Mobility Min. assist as pt reaching for therapist for assistance to get to EOB. Assistive Device: bed rails Scoot/Bridge, Level of [place]: contact guard assist Supine to Sit, Level of [place]: minimal assist (75% patient effort) Sit to Supine, Level of [place]: stand by assist Safety Issues: decreased use of legs for bridging/pushing, impaired trunk control for bed m obility Impairments: decreased flexibility, pain, postural control impaired Balance Sitting Balance: Static: good balance Sitting Balance: Dynamic: good balance Standing Balance: Static: fair balance Standing Balance: Dynamic: fair balance Functional Endurance Fair; pt. was able to walk w/ FWW to the gym without rest. Once in the gym, rested on the t able. Then completed 4 stairs x2, rested, then walked back to his room. Pt. did not report i ssues with endurance. Strength L LE Strength: Grossly 4/5 R LE Strength: Grossly 4/5 PT Goal Review Date Most Recent Value STG Review Date 05/15/19 at 05/08/2019 1525 [id number] Goal Most Recent Value STG Status progressing at 05/10/2019 1539 STG [place] Level modified independent at 05/08/2019 1525 STG Assistive Device none at 05/08/2019 1525 [id number] Goal Most Recent Value STG Status progressing at 05/10/2019 1539 STG [place] Level modified independent at 05/08/2019 1525 STG Assistive Device 2 wheeled walker (FWW) at 05/08/2019 1525 Gait Goal Most Recent Value STG Status progressing at 05/10/2019 1539 STG [place] Level modified independent at 05/08/2019 1525 STG Assistive Device 2 wheeled walker (FWW) at 05/08/2019 1525 STG Distance (feet) 150 feet at 05/08/2019 1525 Stair Goal Most Recent Value STG Status progressing at 05/10/2019 1539 STG [place] Level modified independent at 05/08/2019 1525 STG Assistive Device 1 rail at 05/08/2019 1525 STG Number of Stairs 17 at 05/08/2019 1525 Electronically signed by: Luba Nur, PT Student, 05/10/2019 15:51 Associated attestation - Mac Vee, PT - 05/10/2019 6:02 PM PDTPortions of the evaluation lead database developer were performed and entered by Luba Nur, Physical Therapy Student, [facility] the direct supervision of Clinical Instructing Lisscionhealthed Physical Therapist. I have re viewed this documentation and agree w/ the treatment provided. Adequate supervision was give n and correct CPT codes have been entered. Electronically signed by: Mac Vee PT 05/10/2019 18:02 Plan of Care - trinity Luli Maharaj, MARIALUISA - 05/10/2019 8:55 AM PDTFormatting of this note pina ht be different from the original. Occupational Therapy Plan of Care Treatment Note Summary: Mani has been participating in occupational therapy for treatment of impairmen ts in ADL participation s/p L2-5 laminectomy w/ L2-3 discectomy. Emphasis of session includ ed LB dressing w/AE training as needed, review of spinal precautions, bed mobility using log roll. Patient demonstrates progress towards functional goals as evidenced by being able to james clothing over feet and maintain spinal precautions. But continues to need VC's for pre cautions and CGA for standing balance. Remaining barriers to discharge and functional limitations include decreased insight into s afety and deficits, decreased functional activity tolerance, decreased bed mobility, decreas ed functional transfers, decreased ability to perform ADLs, decreased ability to perform IAD Ls, decreased ability to perform medication management, lives alone, demonstrating need for 24/7 supervision, not yet able to mobilize at level safe for home discharge and spinal preca utions. Mani will benefit from continued therapeutic intervention to address ongoing impairments and increase safety and independence with activities necessary for safe discharge. Refer be low for specific details regarding functional levels. Occupational Therapy Discharge Recommendations are: Recommended discharge disposition: home with assist Post discharge occupational therapy recommendation: pt is motivated participant, minimum 5 therapy days/week Equipment Recommendations: disaster recovery coordinator Planned Interventions:ADL retraining, balance training, bed mobility training, strengthenin g, patient/family education, functional endurance training, transfer training Recommended Frequency: daily Patient Status/Goals: Reflects last filed data and may be from multiple contributors. ADLs Mauricio is agreeable to sit to EOB and work on AE training for LB Dressing if needed. No AE needed to [facility] pants over feet, CGA for standing balance to pull up over hip s, he sat to tie. he continues to be able to reach feet by crossing ankle over knee. and ma intain spinal precautions LB Dressing, Level of [place]: contact guard assist Assistive Device: none LB Dressing Assess/Train, Position: sitting, standing LB Dressing Impairments: ROM decreased, strength decreased, impaired balance, pain Bed Mobility Pt required extra time and effort with cueing for logroll technique, required no physical a ssistance. Assistive Device: bed rails Scoot/Bridge, Level of [place]: stand by assist Supine to Sit, Level of [place]: stand by assist, verbal cues required Sit to Supine, Level of [place]: stand by assist, verbal cues required Sidelying to Sit, Level of [place]: verbal cues required, stand by assist Sit to Sidelying, Level of [place]: verbal cues required, stand by assist Safety Issues: decreased use of legs for bridging/pushing, impaired trunk control for bed m obility Impairments: decreased flexibility, pain, postural control impaired Transfers increased pain with sitting to EOB. light assist for balance with sit to stand. Sit-Stand, Level of [place]: contact guard assist, verbal cues required Stand-Sit, Level of [place]: verbal cues required, stand by assist Mme-Kywyn-Dln, Assistive Device: 2 wheeled walker (FWW) Safety Issues: step length decreased, weight-shifting ability decreased Impairments: decreased flexibility, pain, impaired balance OT Goal Review Date Most Recent Value STG Review Date 05/13/19 at 2019 0830 Grooming Goal Most Recent Value STG Status continued at 05/10/2019 0825 STG [place] Level modified independent at 2019 0830 STG Position standing at 2019 0830 LB Dressing Goal Most Recent Value STG Status progressing at 05/10/2019 0825 STG [place] Level modified independent at 2019 0830 STG Adaptive Equipment disaster recovery coordinator at 2019 0830 Toilet Transfer Goal Most Recent Value STG Status continued at 05/10/2019 0825 STG [place] Level modified independent at 2019 0830 STG Assistive Device 2 wheeled walker (FWW), cane (straight, single point) at 2019 0 830 Tub/Shower Transfer Goal Most Recent Value Tub/Shower Type tub/shower combo at 2019 0830 STG Status continued at 05/10/2019 0825 STG [place] Level modified independent at 2019 0830 STG Assistive Device 2 wheeled walker (FWW), cane (straight, single point) at 2019 0 830 Electronically signed by: MARIALUISA Whitaker, 05/10/2019 10:53 lan of Elizabeth Ella Alexander RN - 05/10/2019 5:28 AM PDTPt is a&o x4, dressing to back is Intact with a scan t amount of dried drainage noted. Pt has slept most of the night after taking scheduled traz odone and flexeril. No further c/o pain. Still notes some slight n/t to right foot, but says it has slightly improved. VSS on r.a. Electronically signed by Ella Botello RN at 9 5:35 AM PDTPlan of Madelyn Ott RRT - 2019 11:37 PM PDTPt resting in bed, p t full non labored speech, with good cough reflex after DBC, = bilateral chest excursion wit hout the use of ABM for I/E effort, BS CTA diminished in bases with end inspitory crackles, that did decrease post DBC and IS therapies. Pt w/d/p, non c/o sob dyspnea, pt has attempte d to use CPAP in the past but wiley not like to wear it "cannot sleep", and is refusing it at this time. Pt stable and NAD. Will continue to monitor oxygenation for acute changes as we ll as continue with lung expansion therapies and encourage CPAP use. lan of Sandra Goyal RN - 2019 7:46 PM PDTI visited with Don this afternoon regarding discharge planning. He lives in [facility] alone in an upstairs apartment with 17 steps with a handrail leading to the e ntrance. He wants to go to a SNF for Rehab as he has no one to help him at home. His prefe rence of SNF's is: 1) [facility]; 2) [facility]; 3) [facility]. I sent referrals to all [facility] facilities. His PCP is Loi Frausto PA-C. He uses the [facility] pharmac y. He is agreeable to having Home Health services. He chose [employer] as his DME agency of [place]. He owns a straight cane that he has been using. I placed the preference sheets in the ghost chart. He had no other questions or needs at this time. CM please follow up on the SNF referrals tomorrow. Electronically signed by: Sandra Chopra RN 2019 20:33 Discharge Disposition: SNF for Rehab per patient's request lan of Care - Juan Aleman PT - 2019 5:45 PM PDTTherapy Plan of Care Missed Visit Note Patient Information Patient Name: Mani Garcia Date of : 1965 Age: 54 y.o. The patient was unable to be seen for today's scheduled visit due to pt declined to partici hanks stating that his pain is not managed. Plan: Discussed with RN. Pt agreed to ambulate with LITHOGRAPHIC PRINTING MACHINIST after dinner if pain is better. C NA aware. Electronically signed by: Juan Fiore PT, 2019 17:45 lan of Elizabeth - Arleen Sherman RN - 2019 3:59 PM PDTPt c/o mid back pain, managed well with flexiril a nd 10 mg oxycodone per pt request. Has been sleeping between cares this shift. Reports chron ic N/T to top of right foot, otherwise CMS intact. 4/5 MS in BLE. D/P strong. Dressing to mi d back CDI. VS within parameters. Voiding without difficulty. Passing flatus. No falls/injur y. lan of Care - Jessica Griffith Chaplain - 2019 11:52 AM PDT Spiritual Care Mani Garcia is a 54 y.o. male who is admitted for Neurogenic claudication [M48.062] Displacement of lumbar intervertebral disc without myelopathy [M51.26] Muscle wasting and atrophy, NEC, unsp thigh [M62.559]. Batch Or Continuous Still Operator visit was part of routine rounding. Spiritual Evaluation: The patient was resting in a bed with the room darkened when the motion designer arrived. He was calm and welcomed prayer support. He is not zoroastrian but appreciated a blessing. He is la cking a social support system and is unaware of family or friends who are supportive of him. He expressed hope that the cause of his physical issues is being addressed. Spiritual Interventions: The motion designer attended, offered care, witnessed patient's story and offered prayer. Spiritual Outcomes: The patient appreciated prayer. Spiritual Goals/Follow-up: Follow up as needed or requested. Electronically signed by Chaplain Roseanne at 11:54 AM PDTPlan of Care - Breanna George, OT - 2019 8:50 AM PDTFormatti ng of this note might be different from the original. Occupational Therapy Plan of Care Initial Evaluation Note Summary: Mani presents to occupational therapy with impairments in ADL participation s/ p L2-5 laminectomy w/ L2-3 discectomy. Objective exam reveals impairments with aerobic [place]/endurance, functional endurance/activity tolerance, gait, locomotion, and balance, join t integrity and mobility, participation in ADLs. Pt had increased pain this session, requiri ng pain medication at beginning of session. He was able to complete bed mobility and sit<>st and transfer, but no further ADLs or functional mobility/transfers in room. Barriers to discharge and functional limitations include decreased functional activity tole christopher, decreased bed mobility, decreased functional transfers, decreased ability to perform ADLs, lives alone, not yet able to mobilize at level safe for home discharge and spinal prec autions. Mani will benefit from therapeutic intervention to address impairments and increase safet y and independence with activities necessary for safe discharge. Refer below for specific d etails regarding functional levels. Precautions/Limitations: falls, spinal precautions Left Lower Extremity Weight-Bearing: full weight-bearing Right Lower Extremity Weight-Bearing: full weight-bearing Previous Level of Function: Transferring: independent Ambulation: independent Toileting: independent Bathing: independent Dressing: independent Eating: independent Communication: understands/communicates without difficulty Swallowin-->swallows foods/liquids without difficulty Equipment Currently Used at Home: cane, straight, single point Prior Functional Level Comment: Pt reports using a SPC for ambulation. Pt reports no other assistive devices. Pt reports that he was independent with ADLs and functional mobility prio r to hospitalization. Potential available assistance at discharge: Significant Relationships: friend Provides Primary Care For: no one, unable/limited ability to care for self Living Environment/Accessibility: Lives With: alone Living Arrangements: apartment Home Accessibility: stairs to enter home, bed and bath on same level, tub/shower is not wal k in Number of Stairs to Enter Home: 17 Number of Stairs Within Home: 0 Financial Concerns: none Transportation Available: family or friend will provide Living Environment Comment: Pt lives in an apartment with 17 stairs to enter. He has a tub shower. Patient/Family?s Goals: Rehabilitation potential: good, to achieve stated therapy goals Occupational Therapy Discharge Recommendations are: Recommended discharge disposition: home with assist Post discharge occupational therapy recommendation: pt is motivated participant, minimum 5 therapy days/week Equipment Recommendations: disaster recovery coordinator Planned Interventions:ADL retraining, balance training, bed mobility training, strengthenin g, patient/family education, functional endurance training, transfer training Recommended Frequency: daily Patient Status/Goals: Reflects last filed data and may be from multiple contributors. ADLs Pt limited due to pain this session. Assess further ADLs next session. Pt completed donning/doffing of socks, bringing feet up to knee to complete activity. Pt di d not require AE, and was able to maintain precautions. LB Dressing, Level of [place]: stand by assist, verbal cues required Assistive Device: none LB Dressing Assess/Train, Position: sitting LB Dressing Impairments: ROM decreased, strength decreased, impaired balance, pain Functional Endurance Poor this session due to pain Cognitive Mood/Behavior: calm, cooperative Orientation: oriented x 4 Arousal Level: opens eyes spontaneously Speech: slurred, spontaneous, logical Bed Mobility Pt required extra time and effort with cueing for logroll technique, required no physical a ssistance. Assistive Device: bed rails Supine to Sit, Level of [place]: stand by assist, verbal cues required Sit to Supine, Level of [place]: stand by assist, verbal cues required Safety Issues: decreased use of legs for bridging/pushing, impaired trunk control for bed m obility Impairments: decreased flexibility, pain, postural control impaired Transfers Pt with increased pain this session. Required increased time and effort for sit>stand trans wilfred. VC for hand placement during transfer. Sit-Stand, Level of [place]: contact guard assist, verbal cues required Stand-Sit, Level of [place]: contact guard assist, verbal cues required [id number], Assistive Device: 2 wheeled walker (FWW) Safety Issues: step length decreased, weight-shifting ability decreased Impairments: decreased flexibility, pain, impaired balance ROM L UE ROM: WFL R UE ROM: WFL Strength L UE Strength: WFL for precautions R UE Strength: WFL for precautions OT Goal Review Date Most Recent Value STG Review Date 05/13/19 at 2019 0830 Grooming Goal Most Recent Value STG Status new at 2019 0830 STG [place] Level modified independent at 2019 0830 STG Position standing at 2019 0830 LB Dressing Goal Most Recent Value STG Status new at 2019 0830 STG [place] Level modified independent at 2019 0830 STG Adaptive Equipment disaster recovery coordinator at 2019 0830 Toilet Transfer Goal Most Recent Value STG Status new at 2019 0830 STG [place] Level modified independent at 2019 0830 STG Assistive Device 2 wheeled walker (FWW), cane (straight, single point) at 2019 0 830 Tub/Shower Transfer Goal Most Recent Value Tub/Shower Type tub/shower combo at 2019 0830 STG Status new at 2019 0830 STG [place] Level modified independent at 2019 0830 STG Assistive Device 2 wheeled walker (FWW), cane (straight, single point) at 2019 0 830 Electronically signed by: Breanna George OT, 2019 9:04 lan of Kathleen Esquivel RN - 2019 4:36 AM PDTPt medicated for pain x 2 this shift wit h good relief. Has been up to BR to void with sba and fww. No falls or injuries this shift. Has been using his call light appropriately. Dressing CDI. CMS intact. lan of Alba Miller RN - 05/08/2019 4:43 PM PDTPatient is A+Ox4. He has slurred speech from a previous stroke but no other noticeable defecits. He is able to communicate easily. His MS are 5/5 throughout. He reports some numbness to RLE that was present pre-operatively. Bandage to the lower back is CDI. He denies headache or nausea. He ambulated to bathroom with minimal assistance and F WW. Voided 325 cc clear yellow urine. Robaxin IV and Flexeril PO alternated for analgesia so far. Patient calls appropriately for assistance. Electronically signed by: Alba Joseph RN 05/08/2019 16:44 la n of Care - Juan Fiore, PT - 05/08/2019 3:39 PM PDT Physical Therapy Plan of Care Initial Evaluation, Treatment Note Summary: Mani presents to physical therapy with impaired functional mobility, decreased flexibility, and pain following elective L2-L5 laminectomy and L2-L3 discectomy.. Objectiv e exam reveals impairments with ergonomics and body mechanics, functional endurance/activity tolerance, gait, locomotion, and balance, muscle performance. Emphasis of session to estab nicole current functional mobility, initiate and progress bed mobility, transfer training, and gait training, assess balance and safety. Barriers to discharge and functional limitations include decreased functional transfers, de creased functional gait distance, decreased gait velocity, stairs at home, not able to navig ate stairs and not yet able to mobilize at level safe for home discharge. Mani will benefit from therapeutic intervention to address impairments and increase safet y and independence with activities necessary for safe discharge. Refer below for specific d etails regarding functional levels. Left Lower Extremity Weight-Bearing: full weight-bearing Right Lower Extremity Weight-Bearing: full weight-bearing Previous Level of Function: Equipment Currently Used at Home: cane, straight, single point Prior Functional Level Comment: Pt reports using a SPC for ambulation. Potential available assistance at discharge: Significant Relationships: friend Provides Primary Care For: no one, unable/limited ability to care for self Living Environment/Accessibility: Lives With: alone Living Arrangements: apartment Home Accessibility: stairs to enter home Number of Stairs to Enter Home: 17 Number of Stairs Within Home: 0 Financial Concerns: none Transportation Available: family or friend will provide Patient/Family?s Goals: return home and to have less pain Rehabilitation potential: good, to achieve stated therapy goals Physical Therapy Discharge Recommendations are: Recommended discharge disposition: (TBD) Post discharge physical therapy recommendation: (TBD) Equipment Recommendations: 2 wheeled walker (FWW) Planned Interventions: balance training, bed mobility training, gait training, neuromuscul ar re-education, patient/family education, postural re-education Recommended Frequency: daily Patient Status/Goals: Reflects last filed data and may be from multiple contributors. Gait CGA for imbalance and pain. VC for upright posture. Level of [place]: contact guard assist Assistive Device: 2 wheeled walker (FWW) Distance (feet): 15 feet x 2 Gait Pattern Analysis: 2-point gait Gait Deviations: step length decreased, stride length decreased, double stance time increas ed Impairments: decreased flexibility, pain Transfers No physical assist, CGA for safety. VC for upright posture. completed toilet transfer with CGA. Sit-Stand, Level of [place]: contact guard assist, verbal cues required Stand-Sit, Level of [place]: contact guard assist, verbal cues required [id number], Assistive Device: 2 wheeled walker (FWW) Toilet, Level of [place]: stand by assist, verbal cues required Toilet, Assistive Device: 2 wheeled walker (FWW), grab bars Safety Issues: step length decreased, weight-shifting ability decreased Impairments: decreased flexibility, pain, impaired balance Bed Mobility extra time an effort. no physical assist needed. VC for logroll technique Assistive Device: bed rails Scoot/Bridge, Level of [place]: contact guard assist Sidelying to Sit, Level of [place]: contact guard assist, verbal cues required Sit to Sidelying, Level of [place]: contact guard assist, verbal cues required Safety Issues: decreased use of legs for bridging/pushing, impaired trunk control for bed m obility Impairments: decreased flexibility, pain, postural control impaired Balance Sitting Balance: Static: good balance Sitting Balance: Dynamic: good balance Standing Balance: Static: fair balance Standing Balance: Dynamic: fair balance Functional Endurance fair for activities performed ROM L LE ROM: WFL R LE ROM: WFL Strength L LE Strength: Grossly 4/5 R LE Strength: Grossly 4/5 PT Goal Review Date Most Recent Value STG Review Date 05/15/19 at 05/08/2019 1525 Nrllyzqfl-Qej-Qyfeofekd Goal Most Recent Value STG Status new at 05/08/2019 1525 STG [place] Level modified independent at 05/08/2019 1525 STG Assistive Device none at 05/08/2019 1525 Nub-Yqktg-Qlo Goal Most Recent Value STG Status new at 05/08/2019 1525 STG [place] Level modified independent at 05/08/2019 1525 STG Assistive Device 2 wheeled walker (FWW) at 05/08/2019 1525 Gait Goal Most Recent Value STG Status new at 05/08/2019 1525 STG [place] Level modified independent at 05/08/2019 1525 STG Assistive Device 2 wheeled walker (FWW) at 05/08/2019 1525 STG Distance (feet) 150 feet at 05/08/2019 1525 Stair Goal Most Recent Value STG Status new at 05/08/2019 1525 STG [place] Level modified independent at 05/08/2019 1525 STG Assistive Device 1 rail at 05/08/2019 1525 STG Number of Stairs 17 at 05/08/2019 1525 Electronically signed by: Juan Fiore, PT, 05/08/2019 15:39 Ekaterina Sanford - De Hilliard MD - 05/08/2019 12:54 PM Kiet Garcia May 08, 2019 Preoperative diagnosis: Multilevel lumbar spinal stenosis complicated by herniated nucleus pulposus, and synovial cyst Postoperative diagnosis same, with multiple areas of dural adhesion from spondylitic change and previous surgery Operation performed: L1-L5 decompressive laminectomies right, with disc excision at L3 and excision of synovial cyst at L3-4. Dural repair at L3-4 for above noted adhesions Surgeon: De Hilliard M.D. Asst.: Jerrod Casanova PA-C Summary: This patient presented last week with intractable and unbearable low back and righ t leg pain. He noted a previous history of lumbar spinal surgery but had developed severe m ulti- level stenosis above this, which had been worsened by a rightward and caudal disc bill iation from L2-3, and a synovial cyst at L3-4. I offered him surgical intervention. Findings at operation: His stenosis actually continued nonoperative to the L1 level. Disse ction of the bone away from the dura over the disc herniation lead to thinning of the dura b ut no evidence for arachnoidal compromise. In contrast, at L3-4 dissection of the scarred d ura lead to a unanticipated but unavoidable durotomy with CSF leakage, which required suture repair. Neurophysiological monitoring was normal throughout. Procedure: After institution of satisfactory general endotracheal anesthesia, and placement of multiple needle electrodes for neuro monitoring, as well as institution of a paraspinal muscle block by anesthesia, the patient was turned from supine on the gurney to prone on the Stevenson table and his back was sterilely prepared and draped, after a marking x-ray. A bernabe eout was accomplished. I excised the patient's old lower lumbar incision and then extended this up to the level of L1. I dissected down the midline to the spinous processes and then the dorsal fa scia from these on the right, carrying subperiosteal dissection down the spinous processes a nd out onto the laminae and facets. Self-retaining retractors were placed and the laminae a nd facets were thinned with a large bone rongeurs and a high-speed drill. Laminectomies of L1-5 were then completed with various small Kerrison punches. When we were satisfied with t he laminectomies we retracted the dura at the L3 level gently and removed multiple loose fra gments of disc. I placed a small fat graft over the area of attenuated dura at the L3 level , and secured it with fibrin glue. At the L3-4 level where the unanticipated but unavoidabl e durotomy occurred I placed 5 fine Nurolon sutures to gain a watertight repair. I then cov ered the entire dural exposure with fibrin glue and FloSeal slurry. Self-retaining retracto rs were removed. The dorsal fascia was reattached to the spinous processes and interspinous ligament with #1 Vicryl sutures. Superficial fascia was brought together with 2-0 Vicryl s utures. The subcutis was approximated with 3-0 Vicryl sutures and final skin closure was ac complished with stainless steel clips. A silver impregnated dressing was placed over the in cision and secured with ashley and Tegaderm. Time of operation was about 2-1/2 hours. About 300 mL of blood were lost and no blood was replaced. As noted above the patient's neurophysiology was stable throughout and he was sen t to the recovery room in a satisfactory post anesthetic state. documented in this encounter Plan of Treatment + +------+--------+ + + | Name | Type | Priori | Associated Diagnoses | Order Schedule | | | | ty | | | + +------+--------+ + + | DME: Walker | DME | Routin | Neurogenic | DME 1 Time for 1 | | | | e | claudication | Occurrences starting | | | | | Displacement of | 05/08/2019 until | | | | | lumbar | 05/08/2019 | | | | | intervertebral disc | | | | | | without myelopathy | | + +------+--------+ + + documented as of this encounter Procedures + +--------+ + + + | Procedure Name | Priori | Date/Time | Associated Diagnosis | Comments | | | ty | | | | + +--------+ + + + | POC GLUCOSE | Routin | 05/10/2019 | | Results for this | | | e | 4:40 PM | | procedure are in the | | | | PDT | | results section. | + +--------+ + + + | RESPIRATORY THERAPY | Routin | 05/08/2019 | | | | COMMUNICATION | e | 5:47 PM | | | | | | PDT | | | + +--------+ + + + | FL POP STATClaudia NO | Routin | 05/08/2019 | | Results for this | | CHARGE | e | 12:42 PM | | procedure are in the | | | | PDT | | results section. | + +--------+ + + + | LAMINECTOMY LUMBAR | | 05/08/2019 | Neurogenic | | | | | 9:54 AM | claudication | | | | | PDT | Displacement of | | | | | | lumbar | | | | | | intervertebral disc | | | | | | without myelopathy | | | | | | Muscle wasting and | | | | | | atrophy, NEC, unsp | | | | | | thigh | | + +--------+ + + + +---+--------+ | | Case | | | Notes | | | | | | Instru | | | ments/ | | | Specia | | | l | | | Equipm | | | ent: | | | C-arm, | | | Drill | | | | | | Positi | | | on/Seq | | | uence: | | | | | | Prone, | | | Right | | | side | | | upTabl | | | e: | | | jackso | | | n axis | | | frame | +---+--------+ | | | | | Specia | | | l | | | Needs | | | | | | Specia | | | lty | | | Care | | | Needed | | | : Yes | +---+--------+ documented in this encounter Results POC Glucose (05/10/2019 4:40 PM PDT) + +---------+ + + + | Component | Value | Ref Range | Performed | Pathologist | | | | | At | Signature | + +---------+ + + + | Glucose, | 125 (H) | 70 - 109 mg/dL | [facility] | | | POC | | | [facility] | | [...] [address] | [place] | [phone] | | [facility] | | [id number] | | | - LABORATORY | | | | + + + + + FL C-Lorenzo Stats No Charge (05/08/2019 12:42 PM [...] + | Diagnosis | + + | Neurogenic claudication Spinal stenosis, lumbar region, with neurogenic claudication | + + | Displacement of lumbar intervertebral disc without myelopathy | + + | Muscle wasting and atrophy, NEC, unsp thigh | + + documented in this encounter Admitting Diagnoses + + | Diagnosis | + + | Neurogenic claudication Spinal stenosis, lumbar region, with neurogenic claudication | + + | Displacement of lumbar intervertebral disc without myelopathy | + + | Muscle wasting and atrophy, NEC, unsp thigh | + + documented in this encounter Administered Medications + +--------+ + +------+------+ | Medication Order | MAR | Action | Dose | Rate | Site | | | Action | Date | | | | + +--------+ + +------+------+ | acetaminophen (TYLENOL) tablet | Given | 05/08/20 | 1,000 mg | | | | 1,000 mg 1,000 mg, Oral, ONCE, | | 19 8:06 | | | | | 05/08/19 at 0800, For 1 dose, | | AM PDT | | | | | Pre-op | | | | | | + +--------+ + +------+------+ +---+---+ | | | +---+---+ + +-------+ +-------+---+---+ | albuterol-ipratropium 2.5-0.5 | Given | 05/08/20 | 3 mLs | | | | mg/3 mL nebulizer solution 3 mL | | 19 1:20 | | | | | 3 mL, Nebulization, ONCE PRN, | | PM PDT | | | | | Wheezing, Shortness of Breath, | | | | | | | Starting Tue05/08/19 at 1241, For | | | | | | | 1 dose, Recovery/Phase I | | | | | | + +-------+ +-------+---+---+ +---+---+ | | | +---+---+ + +-------+ +-------+---+---+ | amitriptyline (ELAVIL) tablet | Given | 05/10/20 | 10 mg | | | | 10 mg 10 mg, Oral, NIGHTLY, | | 19 9:53 | | | | | First dose on Tue05/08/19 at | | PM PDT | | | | | 2100, Post-op/Phase II | | | | | | + +-------+ +-------+---+---+ +-------+ +-------+---+---+ | Given | 05/09/20 | 10 mg | | | | | 19 10:08 | | | | | | PM PDT | | | | +-------+ +-------+---+---+ | Given | 05/08/20 | 10 mg | | | | | 19 8:28 | | | | | | PM PDT | | | | +-------+ +-------+---+---+ +---+---+ | | | +---+---+ + +-------+ +--------+---+---+ | aspirin EC tablet 325 mg 325 | Given | 05/11/20 | 325 mg | | | | mg, Oral, DAILY, First dose on | | 19 10:02 | | | | | 05/08/19 at 1330, Do not cut | | AM PDT | | | | | or crush., | | | | | | + +-------+ +--------+---+---+ +-------+ +--------+---+---+ | Given | 05/10/20 | 325 mg | | | | | 19 8:29 | | | | | | AM PDT | | | | +-------+ +--------+---+---+ | Given | 05/09/20 | 325 mg | | | | | 19 8:34 | | | | | | AM PDT | | | | +-------+ +--------+---+---+ +---+---+ | | | +---+---+ + +-------+ +--------+---+---+ | atenolol (TENORMIN) tablet 100 | Given | 05/08/20 | 100 mg | | | | mg 100 mg, Oral, DAILY, First | | 19 8:06 | | | | | dose on Tue05/08/19 at 0815, | | AM PDT | | | | | Pre-op | | | | | | + +-------+ +--------+---+---+ +---+---+ | | | +---+---+ + +-------+ +--------+---+---+ | atenolol (TENORMIN) tablet 100 | Given | 05/11/20 | 100 mg | | | | mg 100 mg, Oral, DAILY, First | | 19 10:03 | | | | | dose on Tue05/08/19 at 1515, | | AM PDT | | | | | Post-op/Phase II | | | | | | + +-------+ +--------+---+---+ +-------+ +--------+---+---+ | Given | 05/10/20 | 100 mg | | | | | 19 9:24 | | | | | | AM PDT | | | | +-------+ +--------+---+---+ | Given | 05/09/20 | 100 mg | | | | | 19 8:35 | | | | | | AM PDT | | | | +-------+ +--------+---+---+ +---+---+ | | | +---+---+ + +-------+ +-------+---+---+ | cyclobenzaprine (FLEXERIL) | Given | 05/11/20 | 10 mg | | | | tablet 10 mg 10 mg, Oral, 3 | | 19 10:03 | | | | | TIMES DAILY, First dose on Tue | | AM PDT | | | | | 05/08/19 at 1515, Post-op/Phase II | | | | | | + +-------+ +-------+---+---+ +-------+ +-------+---+---+ | Given | 05/10/20 | 10 mg | | | | | 19 9:53 | | | | | | PM PDT | | | | +-------+ +-------+---+---+ | Given | 05/10/20 | 10 mg | | | | | 19 2:59 | | | | | | PM PDT | | | | +-------+ +-------+---+---+ + +---+ | | | + +---+ | diphenhydrAMINE (BENADRYL) 12.5 | | | mg/5 mL liquid 25 mg 25 mg, | | | Oral, EVERY 4 HOURS PRN, Itching, | | | Starting 05/08/19 at 1447, | | | Oral route is preferred., | | | Post-op/Phase II | | + +---+ | | | + +---+ | diphenhydrAMINE (BENADRYL) | | | injection 12.5 mg 12.5 mg, | | | Intravenous, EVERY 4 HOURS PRN, | | | Itching, Starting 05/08/19 at | | | 1447, Oral route is preferred., | | | Post-op/Phase II | | + +---+ | | | + +---+ | diphenhydrAMINE (BENADRYL) | | | tablet 25 mg 25 mg, Oral, EVERY | | | 4 HOURS PRN, Itching, Starting | | | 05/08/19 at 1447, Oral route | | | is preferred., Post-op/Phase II | | + +---+ | | | + +---+ + +-------+ +--------+---+---+ | docusate sodium (COLACE) | Given | 05/11/20 | 100 mg | | | | capsule 100 mg 100 mg, Oral, 2 | | 19 10:02 | | | | | TIMES DAILY, First dose on Tue | | AM PDT | | | | | 05/08/19 at 2100, First line agent | | | | | | | for constipation, Post-op/Phase | | | | | | | II | | | | | | + +-------+ +--------+---+---+ +-------+ +--------+---+---+ | Given | 05/10/20 | 100 mg | | | | | 19 9:53 | | | | | | PM PDT | | | | +-------+ +--------+---+---+ | Given | 05/10/20 | 100 mg | | | | | 19 8:29 | | | | | | AM PDT | | | | +-------+ +--------+---+---+ +---+---+ | | | +---+---+ + +-------+ +-------+---+---+ | DULoxetine (CYMBALTA) DR | Given | 05/11/20 | 60 mg | | | | capsule 60 mg 60 mg, Oral, | | 19 10:02 | | | | | DAILY, First dose on Tue05/08/19 | | AM PDT | | | | | at 1515, Do not open capsule., | | | | | | | Post-op/Phase II | | | | | | + +-------+ +-------+---+---+ +-------+ +-------+---+---+ | Given | 05/10/20 | 60 mg | | | | | 19 8:25 | | | | | | AM PDT | | | | +-------+ +-------+---+---+ | Given | 05/09/20 | 60 mg | | | | | 19 8:34 | | | | | | AM PDT | | | | +-------+ +-------+---+---+ +---+---+ | | | +---+---+ + +-------+ +--------+---+---+ | gabapentin (NEURONTIN) capsule | Given | 05/11/20 | 300 mg | | | | 300 mg 300 mg, Oral, 3 TIMES | | 19 10:02 | | | | | DAILY, First dose on Tue05/08/19 | | AM PDT | | | | | at 1515, Post-op/Phase II | | | | | | + +-------+ +--------+---+---+ +-------+ +--------+---+---+ | Given | 05/10/20 | 300 mg | | | | | 19 9:53 | | | | | | PM PDT | | | | +-------+ +--------+---+---+ | Given | 05/10/20 | 300 mg | | | | | 19 2:59 | | | | | | PM PDT | | | | +-------+ +--------+---+---+ +---+---+ | | | +---+---+ + +-------+ +--------+---+---+ | gabapentin (NEURONTIN) capsule | Given | 05/08/20 | 600 mg | | | | 600 mg 600 mg, Oral, ONCE, Tue | | 19 8:07 | | | | | 05/08/19 at 0800, For 1 dose, | | AM PDT | | | | | Pre-op | | | | | | + +-------+ +--------+---+---+ +---+---+ | | | +---+---+ + +-------+ +-------+---+---+ | hydroCHLOROthiazide tablet 50 | Given | 05/11/20 | 50 mg | | | | mg 50 mg, Oral, DAILY, First | | 19 10:01 | | | | | dose on Tue05/08/19 at 1515, | | AM PDT | | | | | Post-op/Phase II | | | | | | + +-------+ +-------+---+---+ +-------+ +-------+---+---+ | Given | 05/10/20 | 50 mg | | | | | 19 8:26 | | | | | | AM PDT | | | | +-------+ +-------+---+---+ | Given | 05/09/20 | 50 mg | | | | | 19 8:35 | | | | | | AM PDT | | | | +-------+ +-------+---+---+ +---+---+ | | | +---+---+ + +---------+ +---+---+---+ | lactated ringers (LR) infusion | New Bag | 05/08/20 | | | | | at 10-100 mL/hr, Intravenous, | | 19 10:25 | | | | | CONTINUOUS, Starting 05/08/19 | | AM PDT | | | | | at 0800, TKO., Pre-op | | | | | | + +---------+ +---+---+---+ + + +--------+-------+--------+ | Continued by Anesthesia | 05/08/20 | | | | | | 19 9:50 | | | | | | AM PDT | | | | + + +--------+-------+--------+ | New Bag | 05/08/20 | 1,000 | 100 | Right | | | 19 8:10 | mLs | mL/hr | Arm | | | AM PDT | | | | + + +--------+-------+--------+ +---+---+ | | | +---+---+ + +-------+ +-------+---+---+ | losartan (COZAAR) tablet 50 mg | Given | 05/11/20 | 50 mg | | | | 50 mg, Oral, DAILY, First dose | | 19 10:03 | | | | | on Tue05/08/19 at 1515, | | AM PDT | | | | | Post-op/Phase II | | | | | | + +-------+ +-------+---+---+ +-------+ +-------+---+---+ | Given | 05/10/20 | 50 mg | | | | | 19 9:24 | | | | | | AM PDT | | | | +-------+ +-------+---+---+ | Given | 05/09/20 | 50 mg | | | | | 19 8:34 | | | | | | AM PDT | | | | +-------+ +-------+---+---+ +---+---+ | | | +---+---+ + +---------+ + +--------+---+ | methocarbamol (ROBAXIN) 1,000 | New Bag | 05/08/20 | 1,000 mg | 146.7 | | | mg in sodium chloride 0.9% 100 mL | | 19 4:28 | | mL/hr | | | IVPB 1,000 mg, Intravenous, | | PM PDT | | | | | Administer over 45 Minutes, ONCE, | | | | | | | e 05/08/19 at 1515, For 1 dose, | | | | | | | Post-op/Phase II | | | | | | + +---------+ + +--------+---+ +---+---+ | | | +---+---+ + +-------+ +--------+---+---+ | methocarbamol (ROBAXIN) tablet | Given | 05/11/20 | 750 mg | | | | 750 mg 750 mg, Oral, EVERY 8 | | 19 6:46 | | | | | HOURS PRN, Muscle spasms, | | AM PDT | | | | | Starting e 05/08/19 at 1447, For | | | | | | | 3 doses, Post-op/Phase II | | | | | | + +-------+ +--------+---+---+ +---+---+ | | | +---+---+ + +---------+ +---------+---+ + | nicotine (NICODERM) 7 mg/24 hr | Patch | 05/08/20 | 1 patch | | Arm-Liam | | 1 patch 1 patch, Transdermal, | Applied | 19 9:32 | | | t Upper | | DAILY, First dose on Tue05/08/19 | | AM PDT | | | | | at 0900, Pre-op | | | | | | + +---------+ +---------+---+ + +---+---+ | | | +---+---+ + +-------+ +-------+---+---+ | oxyCODONE (ROXICODONE) tablet | Given | 05/10/20 | 15 mg | | | | 2.5-15 mg 2.5-15 mg, Oral, EVERY | | 19 6:24 | | | | | 4 HOURS PRN, Pain, Starting Tue | | AM PDT | | | | | 05/08/19 at 1447, First dose must | | | | | | | be the lowest dose, can titrate | | | | | | | to effective dose by repeat of | | | | | | | lowest dose every 60 minutes prn | | | | | | | pain, may not exceed maximum dose | | | | | | | ordered per interval. Use Pasero | | | | | | | Sedation Scale., Post-op/Phase | | | | | | | II | | | | | | + +-------+ +-------+---+---+ +-------+ +-------+---+---+ | Given | 05/09/20 | 10 mg | | | | | 19 6:06 | | | | | | PM PDT | | | | +-------+ +-------+---+---+ | Given | 05/09/20 | 10 mg | | | | | 19 12:45 | | | | | | PM PDT | | | | +-------+ +-------+---+---+ +---+---+ | | | +---+---+ + +-------+ +-------+---+---+ | pantoprazole (PROTONIX) DR | Given | 05/11/20 | 40 mg | | | | tablet 40 mg 40 mg, Oral, DAILY | | 19 6:46 | | | | | BEFORE BREAKFAST, First dose on | | AM PDT | | | | | Tue05/08/19 at 1515, Indication: | | | | | | | GERD, Post-op/Phase II | | | | | | + +-------+ +-------+---+---+ +-------+ +-------+---+---+ | Given | 05/10/20 | 40 mg | | | | | 19 6:32 | | | | | | AM PDT | | | | +-------+ +-------+---+---+ | Given | 05/09/20 | 40 mg | | | | | 19 6:44 | | | | | | AM PDT | | | | +-------+ +-------+---+---+ +---+---+ | | | +---+---+ + +-------+ +------+---+---+ | polyethylene glycol (MIRALAX) | Given | 05/11/20 | 17 g | | | | powder 17 g 17 g, Oral, DAILY, | | 19 10:01 | | | | | First dose on Tue05/08/19 at | | AM PDT | | | | | 1515, If docusate and senna | | | | | | | ineffective or not ordered, | | | | | | | Post-op/Phase II | | | | | | + +-------+ +------+---+---+ +-------+ +------+---+---+ | Given | 05/10/20 | 17 g | | | | | 19 8:30 | | | | | | AM PDT | | | | +-------+ +------+---+---+ | Given | 05/09/20 | 17 g | | | | | 19 8:35 | | | | | | AM PDT | | | | +-------+ +------+---+---+ +---+---+ | | | +---+---+ + +-------+ +-------+---+---+ | pravastatin (PRAVACHOL) tablet | Given | 05/10/20 | 40 mg | | | | 40 mg 40 mg, Oral, NIGHTLY, | | 19 9:53 | | | | | First dose on Tue05/08/19 at | | PM PDT | | | | | 2100, Post-op/Phase II | | | | | | + +-------+ +-------+---+---+ +-------+ +-------+---+---+ | Given | 05/09/20 | 40 mg | | | | | 19 10:08 | | | | | | PM PDT | | | | +-------+ +-------+---+---+ | Given | 05/08/20 | 40 mg | | | | | 19 8:32 | | | | | | PM PDT | | | | +-------+ +-------+---+---+ +---+---+ | | | +---+---+ + +-------+ +--------+---+---+ | senna (SENOKOT) tablet 8.6 mg | Given | 05/11/20 | 8.6 mg | | | | 8.6 mg, Oral, 2 TIMES DAILY, | | 19 10:03 | | | | | First dose on Tue05/08/19 at | | AM PDT | | | | | 2100, If docusate ineffective or | | | | | | | not ordered, Post-op/Phase II | | | | | | + +-------+ +--------+---+---+ +-------+ +--------+---+---+ | Given | 05/10/20 | 8.6 mg | | | | | 19 9:53 | | | | | | PM PDT | | | | +-------+ +--------+---+---+ | Given | 05/10/20 | 8.6 mg | | | | | 19 8:29 | | | | | | AM PDT | | | | +-------+ +--------+---+---+ + +---+ | | | + +---+ | sodium chloride 0.9% (NS) | | | infusion at 10-100 mL/hr, | | | Intravenous, CONTINUOUS, Starting | | | 05/08/19 at 0800, TKO. Use | | | this instead of LR if patient is | | | on dialysis., | | + +---+ | | | + +---+ + +---------+ +---+-------+---+ | sodium chloride 0.9% (NS) | New Bag | 05/08/20 | | 100 | | | infusion at 100 mL/hr, | | 19 3:33 | | mL/hr | | | Intravenous, CONTINUOUS, Starting | | PM PDT | | | | | 05/08/19 at 1515, | | | | | | | Post-op/Phase II | | | | | | + +---------+ +---+-------+---+ +---+---+ | | | +---+---+ + +-------+ +-------+---+---+ | traZODone (DESYREL) tablet | Given | 05/10/20 | 50 mg | | | | 50-100 mg 50-100 mg, Oral, | | 19 9:53 | | | | | NIGHTLY, First dose on Tue | | PM PDT | | | | | 05/08/19 at 2100, Post-op/Phase II | | | | | | + +-------+ +-------+---+---+ +-------+ +-------+---+---+ | Given | 05/09/20 | 50 mg | | | | | 19 10:10 | | | | | | PM PDT | | | | +-------+ +-------+---+---+ | Given | 05/08/20 | 50 mg | | | | | 19 8:29 | | | | | | PM PDT | | | | +-------+ +-------+---+---+ +---+---+ | | | +---+---+ documented in this encounter
--- OUTSIDE RECORDS SUMMARY | ~2020-06-06 | XMS | Encounter Summary ---
Demographics + + + | Address | NEED ADDRESS | | | [place] [address] | + + + | Home Phone [...] Author + + + | Author | [facility] | | | and [place] | + + + | Organization | [facility] | | [...] + | Hector Garcia | E[address] | [place] [address] | | + + + + + Care Team Providers + +------+ + | Care Weather Analyst Name | Role | Phone | + [...] | | | | intervertebr | | [phone] Phone: | | | | | al disc | | [phone] | | | | | 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 | | [phone] | | | | | Muscle | | | | | | | wasting and | | | | | | | atrophy, | | | | | | | NEC, unsp | | | | | | | thigh | | | | | | | Procedures | | | | | | | NM LAMNOTMY | | | | | | [...] | | | | | | SEG NM | | | | | | | [...] + + + + | 05/07/ | Hospital | [facility] | [facility] | Back pain, | | 2019 | Encounter | [facility] [address] | [address] | unspecified back | | | | [place] | [address] [place], [place] | location, | | | | [place] [address] | [id number] | unspecified back | | | | [phone] | | pain laterality, | | | | | | unspecified | | | | | | chronicity | +--------+ + + + + Social [...] Imaging | Routin | Back pain, | 1 Occurrences | | Vw | | e | unspecified back | starting 05/07/2019 | | | | | location, | until 05/07/2019 | | | | | unspecified back | | | | | | pain laterality, | | | | | | unspecified | | | | | | chronicity | | + +---------+--------+ + + documented as of this encounter Visit Diagnoses + + | Diagnosis | + + | Back pain, unspecified back location, unspecified back pain laterality, unspecified | | chronicity | + + documented in this encounter"
--- OUTSIDE RECORDS SUMMARY | ~2020-06-06 | XMS | Encounter Summary ---
Demographics + + + | Address | NEED ADDRESS | | | [place] [address] | + + + | Home Phone | | + + + | Preferred Language | Unknown | + + + | Marital Status | Single | + + + | Confucianism Affiliation | Unknown | + + + [...] Hector Garcia | ECON | [place] [address] | | + + + + + Care Team Providers + +------+ + | Care Hospital Attendant Name | Role | Phone | + +------+ + | Loi Frausto PA-C | PCP | | + +------+ + Encounter Details +--------+ + + + + | Date | Type | Department | Care Team | Description | +--------+ + + + + | 09/05/ | Hospital | [facility] | Loi Frausto, | Left hand pain | | 2017 | Encounter | MED CTR XRAY [address] | PA-C [address] | | | | | [place] | [address] [place] | | | | | [place] [address] | [place] [address] | | | | | [phone] | [phone] | | | | | | | [...] + +--------+ + + + | XR HAND LEFT 3 + VW | Routin | 09/05/2017 | Left hand pain | Results for this | | | e | 9:15 AM | | procedure are in the | | | | PST | | results section. | + +--------+ + + + documented in this encounter Results XR Hand Left 3 + Vw (09/05/2017 9:15 AM PST) + + | Specimen | + + | | + + + + + | Narrative | Performed At | + + + | XR HAND LEFT 3 + VW 09/05/2017 9:15 AM HISTORY: Left hand pain. | [facility] | | COMPARISON: 05/31/2014. FINDINGS: There are no acute osseous | | | findings. Advanced degenerative changes are present of the first | | | basal joint and of the triscaphe joint that have progressed compared | | | to 05/31/2014. Bone mineralization is normal. Soft tissues are | | | unremarkable. IMPRESSION - Progressive advanced degenerative | | | changes involving first basal joint and triscaphe joint. Dictated | | | and Signed by: Horace Galvez MD Electronically signed: 09/05/2017 | | | 9:37 AM | | + + + + + | Procedure Note | + + | Frank, Rad Results In - 09/05/2017 9:40 AM PST XR HAND LEFT 3 + VW 09/05/2017 9:15 AM | | | | HISTORY: Left hand pain. | | | | COMPARISON: 05/31/2014. | | | | FINDINGS: | | There are no acute osseous findings. Advanced degenerative changes are present | | of the first basal joint and of the triscaphe joint that have progressed | | compared to 05/31/2014. Bone mineralization is normal. Soft tissues are | | unremarkable. 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 | | | | Dictated and Signed by: Horace Galvez MD | | Electronically signed: 09/05/2017 9:37 AM | + + + +---------+ + + | Performing | Address | City/State/Zipcode | Phone Number | | Organization | | | | + +---------+ + + | [facility] | | | | + +---------+ + + documented in this encounter Visit Diagnoses + + | Diagnosis | + + | Left hand pain Pain in limb | + + documented in this encounter"
--- OUTSIDE RECORDS SUMMARY | ~2020-06-06 | XMS | Encounter Summary ---
Demographics + + + | Address | [address] | | | [place] [address] | + + + | Home Phone | | + + + | Preferred Language | Unknown | + + + | Marital Status | Single | + + + | Scientologist Affiliation | CHR | + + + | Race | White | + + + | Ethnic Group | Not or | + + + Author + + + | Author | [facility] | + + + | Organization | [facility] | + + + | Address | Unknown | + + + | Phone | Unavailable | + + + Support + + +---------+ + | Name | Relationship | Address | Phone | + + +---------+ + | Servando Boyer | ECON | Unknown | | + + +---------+ + Care Team Providers + +------+ + | Care Farmer General Name | Role | Phone | + +------+ + | Aryan Grossman MD | PCP | | + +------+ + Encounter Details +--------+ + + + + | Date | Type | Department | Care Team | Description | +--------+ + + + + | 12/10/ | Pharmacy | [facility] | | | | 2017 | Visit | & [facility] | | | | | | [address] | | | | | | Mailcode: [place] | | | | | | [facility] | | | | | | Healing, [address] | | | | | | [facility] [place] | | | | | | [address] | | | | | | [phone] | | | +--------+ + + + [...]
--- OUTSIDE RECORDS SUMMARY | ~2020-06-06 | XMS | Encounter Summary ---
Demographics + + + | Address | NEED ADDRESS | | | [place] [address] | + + + | Home Phone [...] Hector Garcia | ECON | [place] [address] | | + + + + + Care Team Providers + +------+ + | Care Metal Burrer Name | Role | Phone | + +------+ + | Loi Frausto PA-C | PCP | | + +------+ + Encounter Details +--------+ + + + + | Date | Type | Department | Care Team | Description | +--------+ + + + + | 05/04/ | Orders Only | [facility] [place] | [place] | Neurogenic | | 2019 | | NEUROSURGERY [address] | MD Dion [address] | claudication | | | | [address] [place] | [address] [place] | (Primary Dx); | | | | [place], [place] | [place] [address] | Displacement of | | | | [address] | [phone] | lumbar | | | | [phone] | | intervertebral disc | | | [...] Diagnosis | + + | Neurogenic claudication - Primary Spinal stenosis, lumbar region, with neurogenic | | claudication | + + | Displacement of lumbar intervertebral disc without myelopathy | + + | Muscle wasting and atrophy, NEC, unsp thigh | + + documented in this encounter"
--- OUTSIDE RECORDS SUMMARY | ~2020-06-06 | XMS | Encounter Summary ---
Demographics + + + | Address | NEED ADDRESS | | | [place] [address] | + + + | Home Phone [...] + + + | Author | [facility] | | | and [place] | + + + | Organization | [facility] | | | [...] Hector Garcia | ECON | [place] [address] | | + + + + + Care Team Providers + +------+ + | Care Video Tape Editor Name | Role | Phone | + +------+ + PCP | Unavailable | + +------+ + Encounter Details +--------+ + + + + | Date | Type | Department | Care Team | Description | +--------+ + + + + | 11/10/ | Hospital | [facility] | Marck Burtonel | | | 2003 | Encounter | MED CTR EMERGENCY | MD Rc [address] | | | | | CENTER [address] | [address] [place] | | | | | [place], [place] | [place] [address] | | | | | [address] | [phone] | | | | | [phone] | | | +--------+ + + + [...]
--- OUTSIDE RECORDS SUMMARY | ~2020-06-06 | XMS | Encounter Summary ---
Demographics + + + | Address | NEED ADDRESS | | | [place] [address] | + + + | Home Phone [...] + | Hector Garcia | ECON | [place] [address] | | + + + + + Care Team Providers + +------+ + | Care Export Manager Name | Role | Phone | [...] | | | | intervertebr | | [address] Phone: | | | | | al disc | | [phone] | | | | | 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 | | [phone] | | | | | Muscle | | | | | | | wasting and | | | | | | | atrophy, | | | | | | | NEC, unsp | | | | | | | thigh | | | | | | | Procedures | | | | | | | [place] L[place] | | | | | | [...] | | | | | | [place] | | | | | | | [...] + + | 05/07/ | Hospital | [facility] | [place] | | | 2019 | Encounter | MED CTR XRAY [address] | [address] | | | | | [place] | [address] [place] | | | | | [place] [address] | [place] [address] | | | | | [phone] | [phone] | | | | | | | [...] cancer | | | | | | ([facility]) Disorder of | | | [...] | | 05/07/2019 11:22 AMHISTORY: Pre-operative examComparison: 7/8/2019TECHNIQUE: Frontal and | | lateral views of [...]
--- OUTSIDE RECORDS SUMMARY | ~2020-06-06 | XMS | Encounter Summary ---
Demographics + + + | Address | NEED ADDRESS | | | [place] [address] | + + + | Home Phone | | + + + | Preferred Language | Unknown | + + + | Marital Status | Single | + + + | Sikhism Affiliation | Unknown | + + + | Race | White | + + + | Ethnic Group | Not or | + + + Author + + + | Author | [facility] | | | and [place] | + + + | Organization | [facility] | | | [...] Hector Garcia | ECON | [place] [address] | | + + + + + Care Team Providers + +------+ + | Care Life Enrichment Specialist Name | Role | Phone | + +------+ + | Aryan Grossman MD | PCP | | + +------+ + Reason for Visit + + + | Reason | Comments | + + + | Medication Refill | | + + + Encounter Details +--------+--------+ + + + | Date | Type | Department | Care Team | Description | +--------+--------+ + + + | 10/03/ | Refill | [facility] [place] [facility] | Aryan Grossman, | Medication Refill | | 2014 | | MEDICINE [address] | [address] | | | | | [address] [place], | [address] [place], | | | | | [place] [address] | [place] [address] | | | | | [phone] | [phone] | | | | | | | | +--------+--------+ + + + Social History + +-------+ [...]
--- OUTSIDE RECORDS SUMMARY | ~2020-06-06 | XMS | Encounter Summary ---
Demographics + + + | Address | [address] | | | [place] [facility] [place] [place] [address] | + + + | Home Phone | | + + + | Preferred Language | Unknown | + + + | Marital Status | Single | + + + | Taoism Affiliation | CHR | + + + | Race | White | + + + | Ethnic Group | Not or | + + + Author + + + | Author | [facility] | + + + | Organization | [facility] | + + + | Address | Unknown | + + + | Phone | Unavailable | + + + Support + + +---------+ + | Name | Relationship | Address | Phone | + + +---------+ + | Servando Boyer | ECON | Unknown | | + + +---------+ + Care Team Providers + +------+ + | Care Oil And Gas Superintendent Name | Role | Phone | + +------+ + | Aryan Grossman MD | PCP | | + +------+ + Encounter Details +--------+ + + + + | Date | Type | Department | Care Team | Description | +--------+ + + + + | 01/05/ | Abstract | [facility]rology at [facility] | Simran Osman, | | | 2017 | | [address] | [facility] [address] [facility] | | | | | Mailcode: CH10U | [address] | | | | | [facility] | [place], [place] | | | | | and Healing, | [address] | | | | | | [phone] | | | | | Floor [place], [place] | | | | | | [address] | | | | | | [phone] | | | +--------+ + + + [...]
--- OUTSIDE RECORDS SUMMARY | ~2020-06-06 | XMS | Encounter Summary ---
Demographics + + + | Address | NEED ADDRESS | | | [place] [address] | + + + | Home Phone [...] + + + | Author | [facility] | | | and [place] | + + + | Organization | [facility] | | | [...] Hector Garcia | ECON | [place] [address] | | + + + + + Care Team Providers + +------+ + | Care Plan Consultant Name | Role | Phone | + +------+ + | Loi Frausto PA-C | PCP | | + +------+ + Encounter Details +--------+ + + + + | Date | Type | Department | Care Team | Description | +--------+ + + + + | 04/14/ | Hospital | [facility] | Simran Osman, | Prostate cancer | | 2017 | Encounter | MED CTR MAMMOGRAPHY | MASONRY SUPERVISOR [address] [facility] | ([facility]) | | | | [address] | [facility] | | | | | [place], [place] | [place], [place] | | | | | [address] | [address] | | | | | [phone] | [phone] | | | | | | | [...] spray by Nasal | | 0 | 02/10/20 | | | (FLONASE) 50 | route. | | | 17 | 7 | | mcg/nasal spray | | | [...] | | | (OCEAN) 0.65% nasal | route. | | | 17 | 7 | | spray | | | | | | + + + +---------+ + + documented as of this encounter Plan of Treatment Not on filedocumented as of this encounter Procedures + +--------+ + + + | Procedure Name | Priori | Date/Time | Associated Diagnosis | Comments | | | ty | | | | + +--------+ + + + | DEXA BONE DENSITY | Routin | 04/14/2017 | Prostate cancer | Results for this | | STUDY WO VERT FX | e | 1:58 PM | (HCC) | procedure are in the | | ASSESSMENT | | PDT | | results section. | + +--------+ + + + documented in this encounter Results DEXA Bone Density Study ALEYDA Gonzalez (04/14/2017 1:58 PM PDT) + + | Specimen | + + | | + + + + + | Narrative | Performed At | + + + | DEXA SCAN OF THE AXIAL SKELETON 04/14/2017 1:57 PM CLINICAL | [facility] | | HISTORY: Prostate cancer (HCC) COMPARISON: None available | | | FINDINGS: Bone density is evaluated in this 51-year-old male using | | | dual-energy absorption technique. Data is acquired at the level of | | | the left femoral neck and L1-L3 levels of the lumbar spine. L4 is | | | excluded, because of sclerotic degenerative changes. Review of the | | | metal bonding assembler images and data sheets demonstrates satisfactory technical | | | quality. Total bone mineral density in the lumbar spine is 0.993 | | | g/sq cm which is 0.7 standard deviation below the young adult mean (T | | | score) and 0.3 standard deviation below the mean for age-matched | | | controls (Z score). Bone mineral density at the level of the left | | | femoral neck measures 0.832 g/sq cm which is 0.7 standard | | | deviation below the young adult mean (T score) and 0.1 standard | | | deviation above the mean for age-matched controls (Z score). | | | IMPRESSION - 1. BONE MINERAL DENSITIES WHICH FALL WITHIN THE | | | NORMAL RANGE. Dictated and Signed by: Rajesh Snyder MD | | | Electronically signed: 04/15/2017 8:38 AM | | + + + + + | Procedure Note | + + | Frank, Jhonathan Results In - 04/15/2017 8:41 AM PDT DEXA SCAN OF THE AXIAL SKELETON | | 04/14/2017 1:57 PMCLINICAL HISTORY: Prostate cancer (HCC)COMPARISON: None | | availableFINDINGS: Bone density is evaluated in this 51-year-old male using | | dual-energyabsorption technique. Data is acquired at the level of the left femoral neck | | andL1-L3 levels of the lumbar spine. L4 is excluded, because of scleroticdegenerative | | changes. Review of the metal bonding assembler images and data sheets demonstratessatisfactory technical | | quality.Total bone mineral density in the lumbar spine is 0.993 g/sq cm which is | | 0.7standard deviation below the young adult mean (T score) and 0.3 standarddeviation | | below the mean for age-matched controls (Z score). Bone mineral density at the level of | | the left femoral neck measures 0.832 g/sqcm which is 0.7 standard deviation below the | | young adult mean (T score) and 0.1standard deviation above the mean for age-matched | | controls (Z score). IMPRESSION -1. BONE MINERAL DENSITIES WHICH FALL WITHIN THE | | NORMAL RANGE.Dictated and Signed by: Rajesh Snyder MD Electronically signed: 04/15/2017 | | 8:38 AM | |deviation below the mean for age-matched controls (Z score). | | | |Bone mineral density at the level of the left femoral neck measures 0.832 g/sq | |cm which is 0.7 standard deviation below the young adult mean (T score) and 0.1 | |standard deviation above the mean for age-matched controls (Z score). | | | |IMPRESSION - | |1. BONE MINERAL DENSITIES WHICH FALL WITHIN THE NORMAL RANGE. | | | |Dictated and Signed by: Rjaesh Snyder MD | | Electronically signed: 04/15/2017 8:38 AM | + + + +---------+ + + | Performing | Address | City/State[facility] | Phone Number | | Organization | | | | + +---------+ + + | [facility] | | | | + +---------+ + + documented in this encounter Visit Diagnoses + + | Diagnosis | + + | Prostate cancer (HCC) Malignant neoplasm of prostate | + + documented in this encounter"
--- OUTSIDE RECORDS SUMMARY | ~2020-06-06 | XMS | Encounter Summary ---
Demographics + + + | Address | NEED ADDRESS | | | [place] [address] | + + + | Home Phone [...] Author + + + | Author | [facility] | | | and [place] | + + + | Organization | [facility] | | [...] + | Hector Garcia | ECON | [place] [address] | | + + + + + Care Team Providers + +------+ + | Care Lead Nurse Name | Role | Phone | + [...] | | | | Prostate | Simran Powell NP | [facility] | | | | | cancer (HCC) | [address] | [place] | | | | | Procedures | Elbert Gamino | MEDICAL | | | | | NM Bone | [address] | CENTER [address] | | | | | Scan Whole | [place], [place] | [place] | | | | | Body | [address] | [place], | | | | | | Phone: | [place] [address] | | | | | | [phone] | Phone: | | | | | | Fax: | [phone] | | | | | | [phone] | Fax: | | | | | | | [phone] | +--------+--------+ + + + + Encounter Details +--------+ + + + + | Date | Type | Department | Care Team | Description | +--------+ + + + + | 07/20/ | Hospital | [facility] | Simran Osman, | | | 2017 | Encounter | MED CTR NUCLEAR | CANNERY TENDER ENGINEER [address] [facility] | | | | | MEDICINE [address] | [facility] | | | | | [place], | [place], [place] | | | | | [place] [address] | [address] | | | | | [phone] | [phone] | | | | | | | [...] NM BONE SCAN WHOLE | Routin | 07/20/2017 | Prostate cancer | Results for this | | BODY | e | 2:32 PM | (HCC) | procedure are in the | | | | PDT | | results section. | + +--------+ + + + documented in this encounter Results NM Bone Scan Whole Body (07/20/2017 2:32 PM PDT) + + | Specimen | + + | | + + + + + | Narrative | Performed At | + + + | NM BONE SCAN WHOLE BODY 07/20/2017 9:57 AM HISTORY: PROSTATE | [facility] | | CANCER, RISING PSA, WORSENING BONE PAIN, EVAL FOR METASTATIC DISEASE. | | | COMPARISON: 07/20/2017 PROTOCOL: Approximately three hours | | | after injection of 26.5m mci technetium 99m MDP, whole body images | | | were obtained in anterior and posterior projections. FINDINGS: | | | Symmetric moderate increased activity in the acromioclavicular joints | | | bilaterally and at the base of the thumb bilaterally. This has | | | typical appearance of radiotracer distribution secondary to | | | degenerative disease. It is similar to the comparison study. | | | Mildly increased activity in the left knee and at L4-L5, also | | | suggestive of degenerative disease. No other areas of increased | | | radiotracer activity. No photopenic areas to suggest lytic lesions. | | | Soft tissue background and renal activity are within normal limits | | | IMPRESSION - No scintigraphic evidence of osteoblastic | | | metastatic disease. Stable focal increased uptake identified in | | | the L5 vertebral body. 2 small foci of radiotracer uptake | | | identified in bilateral infraorbital regions, nonspecific and | | | possibly related to free technetium or periodontal disease. | | | Dictated and Signed by: Rudy Velez MD Electronically signed: | | | 07/20/2017 3:02 PM | | + + + + + | Procedure Note | + + | Frank, Rad Results In - 07/20/2017 3:05 PM PDT NM BONE SCAN WHOLE BODY 07/20/2017 9:57 | | AM HISTORY: PROSTATE CANCER, RISING PSA, WORSENING BONE PAIN, EVAL FOR | | METASTATICDISEASE.COMPARISON: 07/20/2017PROTOCOL: Approximately three hours after | | injection of 26.5m mci technetium 99mMDP, whole body images were obtained in anterior | | and posterior projections.FINDINGS:Symmetric moderate increased activity in the | | acromioclavicular jointsbilaterally and at the base of the thumb bilaterally. This has | | typicalappearance of radiotracer distribution secondary to degenerative disease. It | | issimilar to the comparison study.Mildly increased activity in the left knee and at | | L4-L5, also suggestive ofdegenerative disease.No other areas of increased radiotracer | | activity. No photopenic areas to suggestlytic lesions.Soft tissue background and renal | | activity are within normal limitsIMPRESSION - No scintigraphic evidence of osteoblastic | | metastatic disease.Stable focal increased uptake identified in the L5 vertebral body.2 | | small foci of radiotracer uptake identified in bilateral infraorbital | | regions,nonspecific and possibly related to free technetium or periodontal | | disease.Dictated and Signed by: Rudy Velez MD Electronically signed: 07/20/2017 | | 3:02 PM | |Mildly increased activity in the left knee and at L4-L5, also suggestive of | |degenerative disease. | | | |No other areas of increased radiotracer activity. No photopenic areas to suggest | |lytic lesions. | | | |Soft tissue background and renal activity are within normal limits | | | |IMPRESSION - | | | |No scintigraphic evidence of osteoblastic metastatic disease. | | | |Stable focal increased uptake identified in the L5 vertebral body. | | | |2 small foci of radiotracer uptake identified in bilateral infraorbital regions, | |nonspecific and possibly related to free technetium or periodontal disease. | | | |Dictated and Signed by: Rudy Velez MD | | Electronically signed: 07/20/2017 3:02 PM | + + + +---------+ + + | Performing | Address | City/State/Zipcode | Phone Number | | Organization | | | | + +---------+ + + | [facility] | | | | + +---------+ + + documented in this encounter Visit Diagnoses Not on filedocumented in this encounter"
--- OUTSIDE RECORDS SUMMARY | ~2020-06-06 | XMS | Encounter Summary ---
Demographics + + + | Address | NEED ADDRESS | | | [place] [address] | + + + | Home Phone [...] + + + | Author | [facility] | | | and [place] | + + + | Organization | [facility] | | | and [...] Hector Garcia | ECON | [place] [address] | | + + + + + Care Team Providers + +------+ + | Care Manager Auto Name | Role | Phone | + [...] Description | +--------+--------+ + + + | 05/09/ | Refill | [facility] [place] [facility] | Aryan Grossman, | Medication Refill | | 2016 | | MEDICINE [address] | [address] | | | | | AVE [place], | [address] [place], | | | | | [place] [address] | [place] [address] | | | | | [phone] | [phone] | | | | | | | [...]
--- OUTSIDE RECORDS SUMMARY | ~2020-06-06 | XMS | Encounter Summary ---
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[place], | Phone: | | | | | malignant | [place] | [phone] | | | | | neoplasm of | [address] | Fax: | | | | | bone (HCC) | Phone: | [phone] | | | | | Procedures | [phone] | | | | | | [place] DENOSUMAB | Fax: | | | | | | INJECTION, | [phone] | | | | | | 1 MG | | | +--------+--------+ + + + + Encounter Details +--------+ + + + + | Date | Type | Department | Care Team | Description | +--------+ + + + + | 04/10/ | Hospital | [facility] | Antonio Alcaraz | Bone metastases | | 2018 | Encounter | MED CTR CHEMO | MD Aryan [address] | (HCC); Prostate | | | | INFUSION [address] | [address] [place] | cancer (HCC) | | | | [place], | [place] [address] | | | | | [place] [address] | [phone] | | | | | [phone] | | | +--------+ + + + [...] + + + | Blood Pressure | 160/106 | 04/10/2018 3:25 PM | | | | | PDT | | + + + + + | Pulse | 115 | 04/10/2018 3:25 PM | | | | | PDT | | + + + + + | Temperature | 36 C (96.8 F) | 04/10/2018 3:25 PM | | | | | PDT | | + + + + + | Respiratory Rate | - | - | | + + + + + | Oxygen Saturation | 7% | 04/10/2018 3:25 PM | | | | | PDT [...] documented as of this encounter Progress Notes Sabine Crystal RN - 04/10/2018 3:20 PM PDTHere for Xgeva. Assessment unchanged from . Unable to get Xgeva yesterday due to the CMP machine being down in the lab. Disc harged ambulatory in satisfactory condition, after Xgeva. documented in this encounter Plan of Treatment [...] (XGEVA) 120 mg/1.7 mL | Given | 04/10/20 | 120 mg | | Arm-Left | | injection 120 mg 120 mg, | | 18 3:27 | | | Upper | | Subcutaneous, ONCE, 04/10/18 | | PM PDT | | | | | at 1527, For 1 dose, Keep in | | | | | | | refrigerator. Allow to attain | | | | | | | room temperature prior to use., | | | | | | + +--------+ +--------+------+ + +---+---+ | | | +---+---+ documented in this encounter"
--- OUTSIDE RECORDS SUMMARY | ~2020-06-06 | XMS | Encounter Summary ---
Demographics + + + | Address | NEED ADDRESS | | | [place] [address] | + + + | Home Phone [...] + + + | Author | [facility] | | | and [place] | + + + | Organization | [facility] | | [...] Hector Garcia | ECON | [place] [address] | | + + + + + Care Team Providers + +------+ + | Care Rd Manager Name | Role | Phone | + +------+ + | No Physician | PCP | Unavailable | + +------+ + Encounter Details +--------+ + + + + | Date | Type | Department | Care Team | Description | +--------+ + + + + | 11/05/ | Orders Only | [facility] | Oswaldo Victor | Hair loss (Primary | | 2013 | | CARE [address] | Inocente Leavitt MD | Dx) | | | | [place] | [address] | | | | | [address] | [place] | | | | | [phone] | [address] | | | | | | | [...] Comments | + + +---------+ + | Not Asked | | | | + + +---------+ + + + + | Sex Assigned at | Date Recorded | | | | + + + | Not on file | | + + + documented as of this encounter Progress Notes Lina Schmitt CMA - 11/05/2013 4:26 PM PSTPatient was seen today and Dr Victor closed encounter before I was able to document or charge for venipuncture. Stanton patients blood on right arm. Patient tolerated well. Lina Schmitt documented in this encounter Plan of Treatment Not on filedocumented as of this encounter Visit Diagnoses + + | Diagnosis | + + | Hair loss - Primary Alopecia, unspecified | + + documented in this encounter"
--- OUTSIDE RECORDS SUMMARY | ~2020-06-06 | XMS | Encounter Summary ---
Demographics + + + | Address | NEED ADDRESS | | | [place] [address] | + + + | Home Phone | | + + + | Preferred Language | Unknown | + + + | Marital Status | Single | + + + | Christianity Affiliation | Unknown | + + + [...] Hector Garcia | ECON | [place] [address] | | + + + + + Care Team Providers + +------+ + | Care Shell Coremaker Name | Role | Phone | + +------+ + | Loi Frausto PA-C | PCP | | + +------+ + Reason for Visit + +--------+ + | Reason | Onset | Comments | | | Date | | + +--------+ + | Lab Results | 07/28/ | | | | 2018 | | + +--------+ + Encounter Details +--------+ + + + + | Date | Type | Department | Care Team | Description | +--------+ + + + + | 07/28/ | Telephone | [facility] | Antony Grider, | Lab Results | | 2018 | | PHYSIATRY [address] | MD [address] | | | | | [address] | [place] | | | | | [place] | [address] | | | | | [address] | | | | | | [phone] | | | +--------+ + + + [...] Miscellaneous Notes Telephone Encounter - Emeli Redding Truck Packer - 07/28/2018 11:42 AM PDTCalle d to inform Mani Garcia of lab results. Results were relayed. Mani Garcia verbalized understanding. elephone Encounter - Emeli Redding Truck Packer - 07/28/2018 10:20 AM PDTCalled to inform Mani Garcia of lab results. Left a voicemail message to call our office back. 1 0:20 AM PDTTelephone Encounter - Emeli Redding Truck Packer - 07/28/2018 10:20 A M PDT----- Message from Antony Grider MD sent at 07/28/2018 8:39 PDT ----- Abigail, Please let Mani Garcia know that I have reviewed his labs. There are no emergent resul ts. The lab demonstrate one muscle marker, myoglobin is slightly elevated. All of his othe r muscle markers are normal. The labs would suggest that he is NOT having significant muscl e breakdown. Thank you, Antony Grider MD (Jr.) ----- Message ----- From: Lab, Background User Sent: 07/26/2018 8:25 To: Antnoy Grider MD do cumented in this encounter Plan of Treatment Not on filedocumented as of this encounter Visit Diagnoses Not on filedocumented in this encounter"
--- OUTSIDE RECORDS SUMMARY | ~2020-06-06 | XMS | Encounter Summary ---
Demographics + + + | Address | NEED ADDRESS | | | [place] [address] | + + + | Home Phone | | + + + | Preferred Language | Unknown | + + + | Marital Status | Single | + + + | Orthodox Affiliation | Unknown | + + [...] Hector Garcia | ECON | [place] [address] | | + + + + + Care Team Providers + +------+ + | Care Mobile Solutions Architect Name | Role | Phone | + +------+ + | Loi Frausto PA-C | PCP | | + +------+ + Reason for Visit + +--------+ + | Reason | Onset | Comments | | | Date | | + +--------+ + | Appointment | 08/30/ | | | | 2018 | | + +--------+ + Encounter Details +--------+ + + + + | Date | Type | Department | Care Team | Description | +--------+ + + + + | 08/30/ | Telephone | [facility] | Zeeshan Hawkins, | Appointment | | 2018 | | [address] | MD [address] | | | | | [place] | [place] | | | | | [address] | [address] | | | | | [phone] | | | +--------+ + + + [...] this encounter Miscellaneous Notes Telephone Encounter - Julee Keen, Kitchen Mechanic - 08/30/2018 3:10 PM PSTP atient notified of upcoming appointment on 09/06/2018 with PSA,CMP prior. Patient verbalized understanding.Electronically signed by Antonieta Floyd at 018 3:27 PM PSTdocumented in this encounter Plan of Treatment Not on filedocumented as of this encounter Visit Diagnoses Not on filedocumented in this encounter"
--- OUTSIDE RECORDS SUMMARY | ~2020-06-06 | XMS | Encounter Summary ---
Demographics + + + | Address | NEED ADDRESS | | | [place] [address] | + + + | Home Phone | | + + + | Preferred Language | Unknown | + + + | Marital Status | Single | + + + | Episcopal Affiliation | Unknown | + + + | Race | White | + + + | Ethnic Group | Not or | + + + Author + + + | Author | [facility] | | | and [place] | + + + | Organization | [facility] | | | [...] Hector Garcia | ECON | [place] [address] | | + + + + + Care Team Providers + +------+ + | Care Supervisor Photoengraving Name | Role | Phone | + +------+ + | Loi Frausto PA-C | PCP | | + +------+ + Encounter Details +--------+ + + + + | Date | Type | Department | Care Team | Description | +--------+ + + + + | 01/03/ | Episode | [facility] | Massiel, | | | 2017 | Changes | ORTHOPEDIC SURGERY | Mireya Granados MA | | | | | [address] | | | | | | [place] | | | | | | [address] | | | | | | [phone] | | | +--------+ + + + [...]
--- OUTSIDE RECORDS SUMMARY | ~2020-06-06 | XMS | Encounter Summary ---
Demographics + + + | Address | NEED ADDRESS | | | [place] [address] | + + + | Home Phone [...] Author + + + | Author | [facility] | | | and [place] | + + + | Organization | [facility] | [...] + | Hector Garcia | ECON | [place] [address] | | + + + + + Care Team Providers + +------+ + | Care Manager Agency Name | Role | Phone | + [...] + + | Closed | Specialty | Urology | Diagnoses | Chauncey, | Seun, | | | Services | | Malignant | Aryan Velásquez MD | Columba | | | Required | | neoplasm of | [address] | MD [address]ermina | | | | | prostate | [address] | [address] | | | | | ([facility] | [place] | [place] | | | | | | [place] | [address] | | | | | | [address] | Phone: | | | | | | Phone: | [phone] | | | | | | [phone] | Fax: | | | | | | Fax: | [phone] | | | | | | [phone] | | +--------+ + + + + + Reason for Visit + +--------+ + | Reason | Onset | Comments | | | Date | | + +--------+ + | Referral (Follow up) | 12/09/ | | | | 2014 | | + +--------+ + Encounter Details +--------+ + + + + | Date | Type | Department | Care Team | Description | +--------+ + + + + | 12/09/ | Telephone | [facility] | Aryan Grossman, | Referral (Follow up) | | 2014 | | MEDICINE [address] [place] [address] | [address] | | | | | [address] [place], | [address] [place], | | | | | [place] [address] | [place] [address] | | | | | [phone] | [phone] | | | | | | | [...] Encounter - Kyleigh De Santiago RN - 12/09/2014 2:[address] Gonzalez office at [facility] calling to obtain referral for patient's followup appointments. Referral lyman bmitted. documented in this encounter Plan of Treatment + + +--------+ + + | Name | Type | Priori | Associated Diagnoses | Order Schedule | | | | ty | | | + + +--------+ + + | Urology, External - | Outpatient | Routin | Malignant neoplasm | Ordered: 12/09/2014 | | AMB Referral | Referral | e | of prostate (HCC) | | + + +--------+ + + documented as of this encounter Visit Diagnoses + + | Diagnosis | + + | Malignant neoplasm of prostate (HCC) - Primary Malignant neoplasm of prostate | + + documented in this encounter"
--- OUTSIDE RECORDS SUMMARY | ~2020-06-06 | XMS | Encounter Summary ---
Demographics + + + | Address | [address] | | | [facility] [address] | + + + | Home Phone | | + + + | Preferred Language | Unknown | + + + | Marital Status | Single | + + + | Yarsani Affiliation | CHR | + + + | Race | White | + + + | Ethnic Group | Not or | + + + Author + + + | Author | [facility] | + + + | Organization | [facility] | + + + | Address | Unknown | + + + | Phone | Unavailable | + + + Support + + +---------+ + | Name | Relationship | Address | Phone | + + +---------+ + | Servando Boyer | ECON | Unknown | | + + +---------+ + Care Team Providers + +------+ + | Care Anodizing Line Operator Name | Role | Phone | [...] Description | +--------+---------+ + + + | 08/01/ | Surgery | [address]A [address] Op [address] | Columba Kohli, | OPEN RADICAL | | 2013 | | CHRISTOPHER Melendez | [address] | PROSTATECTOMY, | | | | Charlie [facility] Yariel | [place] [address] | bilateral pelvic | | | | Hospital Admitting | [phone] | lymphadenectomy; | | | | Desk Located on the | | pathology sent (3 | | | | 9th floor | | catalina), see paper | | | | [place], [place] | | record | | | | [id number] | | | +--------+---------+ + + + [...] might be different f rom the original. [facility] UROLOGY DISCHARGE SUMMARY: Patient: Elvia Villalta Admission Date: 08/01/2014 Discharge Date: 08/04/2014 Attending Physician: Columba Kohli MD PCP: Aryan Grossman MD Service: [facility] Transplant Surgery Diagnoses Principal Final Diagnosis: 1. [...] can cause constipation, so you may take mlpa-wke-yhghuog stool softeners (Senok ot-S, Miralax, Colace) following [...] be on the 10th floor of the [facility]. Please call the Urology Clinic at with [...] at discharge as appropriate: BP: 140/81 mmHg (08/04/14741) Pulse: 65 (08/04/14741) Resp: 16 (08/04/14741) Weight: 89.8 kg (197 lb 15.6 oz) (08/01/14818) Discharge Patient To: Home Does patient have a planned readmission: No Discharge Summary Completed?: Yes. 08/04/2014 Discharging Provider: WESLEY PARRA MD Date Completed: 08/04/2014 Time Completed: 7:59 AM Discharging Attending: Columba Kohli MD [facility] [id number] [place] [address] documented in this en counter Discharge Instructions [...] through Care Everywhere.PROSTATECTOMY: RADICAL RETROPUBIC : POST-OP (DANISH)documented in this encounter Medications at Time of [...] Physician: Columba Kohli MD Patient: ELVIA VILLALTA [id number] 24H events/Subjective: No acute events overnight. Pain [...] mg, oral, HS PRN Labs: Recent Labs 08/02/1435 08/02/14 1930 08/03/14 0559 NA 137 -- 138 K 4.0 -- 4.0 CL 105 -- 106 BICARB 26 -- 27 BUN 15 -- 11 CR 0.91 -- 0.99 GLU 87 79 90 CA 8.1* -- 8.2* MG 1.3* -- 1.7* PO4 2.7 -- 3.0 Recent Labs 08/02/14 0535 08/03/14 0559 08/04/14 0553 WBC 8.22 9.35 [...] MD Resident - Department of Urology Pager #[phone] amDe MD - 08/03/2014 7:32 AM PSTUrology [...] - D/C tomorrow De Huff MD Pager [phone] signed by De Huff MD at 08/03/2014 [...] taking adequate PO De Huff MD Pager [phone] signed by De Huff MD at 08/02/2014 7:44 AM PSTdocumented in this encounter H&P Notes Curtis, Faculty - 08/07/2014 10:40 AM PSTElectronically signed by Faculty Other at 10:40 AM PSTdocumented in this encounter Procedure Notes Wesley Parra MD - 08/01/2014 3:39 PM PSTAssociated Order(s): PROCEDURE NOTEOPERATIVE NOTE Procedure Date: 08/01/14 Author: WESLEY PARRA MD Attending Physician: Columba Koppie, MD Assistants: WESLEY PARRA MD Preoperative Diagnosis: [...] 79. He underwent TRUS biopsy which showed [place] 4+3 pr ostate cancer throughout the prostate. [...] a bladder leak. Thus, we placed a Stevenson-Andrews drains in the pelvis overlying the bladder [...] 24 hours. Wesley Parra MD Resident - Department of Urology Pager #[phone] documented in this en counter Miscellaneous Notes [...] unit with brother, discharge home via p [employer] vehicle. Discharge Nurse: RIGO QIU RN andoff [...] notes for their discharge recommendations. Please page rehabilitation case coordinator if any CM arranged service needs a rise. Deisy [place] [address] [address] Pager # [phone] andlev - Carlita Rea RN - 08/02/2014 12:54 AM PSTPrimary focus [...] oxy and IV dilaudid weren't touching it. MD paged, she suggested oxibutynin. Gave that to [...] Liliana Lua RN - 08/01/2014 5:20 PM PSTMeets Phase I Discharge Criteria (Stable For Transfer): [...] Additional pain medication information: Functional Epidural: N/A RECORDING STUDIO SET UP WORKER: N/A Respiratory: RR: 23, O2 Sat: 95 %, O2 Delivery: Nasal cannula Breath Sounds: WDL SILVIA: LLL: RUL: RLL: NAHUN No Comment: Cardiac: BP: 115/52 mmHg HR: 95 GI: Nausea/Vomiting Status: No Signs/Symptoms: Interventions: Assessment: Comments: : Last void: proctor in place, great UOP Contact Name: Servando- brother Contact Number: [phone] Family contacted: Yes Comment: multiple updates Belongings: [...] [facility] | [address] | [place] [address] | | | SERVICES, CORE | [address] [...] | + + + + + | [facility] | [address] | [place] [address] | | | SERVICES, CORE | PARK [...] | + + + + + | [facility] | [address] | [place] [address] | | | SERVICES, CORE | ZEINAB [...] | | | LABORATORY | | | NIGERIAN | | | SERVICES, | | | [...] [facility] | [address] | [place] [address] | | | SERVICES, CORE | PARK [...] [facility] | [address] | [place] [address] | | | SERVICES, CORE | PARK [...] | + + + + + | [facility] | [address] [facility] | [place] [address] | | | SERVICES, CORE | PARK [...] | + + + + + | [facility] | [address] | [place] [address] | | | JAYLEN, MARY BETH | [address] | | | + [...] | | | LABORATORY | | | NIGERIAN | | | SERVICES, | | | [...] | + + + + + | [facility] | [address] | [place] [address] | | | SERVICES, CORE | PARK [...] + + + + + | [facility] | [address] | [place], [place] | | | [facility] [place] [facility] | [address] | [address] | | | TESTS | | | [...] | + + + + + | [facility] | [address] | [place] [address] | | | SERVICES, CORE | [address] | | | + + + + + PHOSPHORUS, PLASMA (08/02/2014 5:35 AM PST) + +-------+ + + + | Component | Value | Ref Range | Performed | Pathologist | | | | | At | Signature | + +-------+ + + + | PHOSPHORUS, | 2.7 | 2.4 - 4.7 mg/dL | [facility] [...] [facility] | [address] | [place] [address] | | | JAYLEN, MARY BETH | [address] | | | + [...] [facility] | [address] | [place] [address] | | | SERVICES, CORE | PARK [...] | | | LABORATORY | | | NIGERIAN | | | SERVICES, | | | [...] the MDRD equation recommended by the | [facility] | | National Kidney Disease Education Program. [...] | + + + + + | [facility] | [address] | [place] [address] | | | JAYLEN, MARY BETH | [address] | | | + [...] | | | | | | adenocarcinoma, [place] | | | | | | grade [...] Carlos | | | | | | Caroline, | | | | | | M.D./PathologistT:11/ [...] | | | | | Grade: 3Total [place] | | | | | | Score: [...] (pT): | | | | | | [id number] Lymph Nodes | | | | | | (pN): [id number] of | | | | | | [...] submitted. | | | | | | Denture Packer | | | | | | sections [...] submitted. | | | | | | Denture Packer | | | | | | sections [...] submitted. | | | | | | Denture Packer | | | | | | sections [...] | | | | | | left [id number], right | | | | | | [id number], right | | | | | | [id number], right | | | | | | [...] | + + + + + | [facility][1] | [address] | [place] [address] | | | PATHOLOGY | [address] | | | + + + + + documented in this encounter Visit Diagnoses + + | Diagnosis | + + | Malignant neoplasm of prostate (HCC) Malignant neoplasm of prostate | + + documented in this encounter
--- OUTSIDE RECORDS SUMMARY | ~2020-06-06 | XMS | Encounter Summary ---
Demographics + + + | Address | NEED ADDRESS | | | [place] [address] | + + + | Home Phone | | + + + | Preferred Language | Unknown | + + + | Marital Status | Single | + + + | Advent Affiliation | Unknown | + + + [...] Hector Garcia | ECON | [place] [address] | | + + + + + Care Team Providers + +------+ + | Care Community Health Planning Director Name | Role | Phone | + +------+ + | Loi Frausto PA-C | PCP | | + +------+ + Encounter Details +--------+ + + + + | Date | Type | Department | Care Team | Description | +--------+ + + + + | 04/02/ | Hospital | [facility] | Loi Frausto, | Cough; Lesion of | | 2019 | Encounter | MED CTR XRAY [address] | PA-C [address] | oral mucosa | | | | [place] | [address] [place] | | | | | [place] [address] | [place] [address] | | | | | [phone] | [phone] | | | | | | | [...] +---------+ + + | cyclobenzaprine | Take 10 mg by mouth | | 0 | 12/06/19 | | | (FLEXERIL) 10 mg | Twice daily as | | | 19 | 9 | | tablet | needed. | | [...] +--------+ + + + | XR CHEST 2 VIEWS | Routin | 04/02/2019 | Cough | Results for this | | | e | 9:15 AM | | procedure are in the | | | | PDT | | results section. | + +--------+ + + + | XR MANDIBLE 4 + VW | Routin | 04/02/2019 | Lesion of oral | Results for this | | | e | 9:15 AM | mucosa | procedure are in the | | | | PDT | | results section. | + +--------+ + + + documented in this encounter Results XR Mandible 4 + Vw (04/02/2019 9:15 AM PDT) + + | Specimen | + + | | + + + + ---+ | Narrative | Performed A t | + + ---+ | XR MANDIBLE 4 | [facility] | | + VW 04/02/2019 9:15 AM HISTORY: Patient is evaluated for oral bony | | | protuberances. COMPARISON: 04/16/2015. FINDINGS:The orbits are normal. | | | Paranasal sinuses are clear. Osseous protuberancesinvolving the | | | bilateral lower mandibles are most compatible with radha. Mastoidsare | | | grossly unremarkable. Limited evaluation of the nasal bones | | | demonstrate noabnormalities. Skull and imaged cervical spine show no | | | acute findings. Softtissue structures are unremarkable. IMPRESSION -No | | | acute findings. Osseous protuberances involving the bilateral lower | | | mandibles are mostcompatible with mandibular radha. No convincingly | | | suspicious lesion seen on plain film radiography. If there isfurther | | | concern, maxillofacial CT may be considered for further evaluation. | | | Dictated and Signed by: Rudy Velez MD Electronically signed: | | | 04/02/2019 2:18 PM | | |No acute findings. | | | | | |Osseous protuberances involving the bilateral lower mandibles are most | | |compatible with mandibular radha. | | | | | |No convincingly suspicious lesion seen on plain film radiography. If there is | | |further concern, maxillofacial CT may be considered for further evaluation. | | | | | |Dictated and Signed by: Rudy Velez MD | | | Electronically signed: 04/02/2019 2:18 PM | | | | | + + ---+ + + | Procedure Note | + + | Frank, Rad Results In - 04/02/2019 2:21 PM PDT XR MANDIBLE 4 + VW 04/02/2019 9:15 AM | | | | HISTORY: Patient is evaluated for oral bony protuberances. | | | | COMPARISON: 04/16/2015. | | | | FINDINGS: | | The orbits are normal. Paranasal sinuses are clear. Osseous protuberances | | involving the bilateral lower mandibles are most compatible with radha. Mastoids | | are grossly unremarkable. Limited evaluation of the nasal bones demonstrate no | | abnormalities. Skull and imaged cervical spine show no acute findings. Soft | | tissue structures are unremarkable. | | | | IMPRESSION - | | No acute findings. | | | | Osseous protuberances involving the bilateral lower mandibles are most | | compatible with mandibular radha. | | | | No convincingly suspicious lesion seen on plain film radiography. If there is | | further concern, maxillofacial CT may be considered for further evaluation. | | | | Dictated and Signed by: Rudy Velez MD | | Electronically signed: 04/02/2019 2:18 PM | + + + +---------+ + + | Performing | Address | City/State/Zipcode | Phone Number | | Organization | | | | + +---------+ + + | [facility] | | | | + +---------+ + + XR Chest 2 Vws (04/02/2019 9:15 AM PDT) + + | Specimen | + + | | + + + + + | Narrative | Performed At | + + + | XR CHEST 2 | [facility] | | VIEWS 04/02/2019 9:15 AM HISTORY: cough. COMPARISON: None. Findings:The | | | bilateral lungs are clear with no evidence for pleural effusion | | | orpneumothorax. Azygous fissure. Heart size is within normal limits. | | | Pulmonaryvasculature is within normal limits. Aorta is normal. | | | Mediastinum isunremarkable. No acute osseous or soft tissue | | | abnormality identified. IMPRESSION - No acute intrathoracic | | | abnormality identified. Dictated and Signed by: Rudy Velez MD | | | Electronically signed: 04/02/2019 10:48 AM | | |vasculature is within normal limits. Aorta is normal. Mediastinum is | | |unremarkable. No acute osseous or soft tissue abnormality identified. | | | | | |IMPRESSION - | | |No acute intrathoracic abnormality identified. | | | | | |Dictated and Signed by: Rudy Velez MD | | | Electronically signed: 04/02/2019 10:48 AM | | | | | + + + + + | Procedure Note | + + | Frank, Rad Results In - 04/02/2019 10:51 AM PDT XR CHEST 2 VIEWS 04/02/2019 9:15 AM | | | | HISTORY: cough. | | | | COMPARISON: None. | | | | Findings: | | The bilateral lungs are clear with no evidence for pleural effusion or | | pneumothorax. Azygous fissure. Heart size is within normal limits. Pulmonary | | vasculature is within normal limits. Aorta is normal. Mediastinum is | | unremarkable. No acute osseous or soft tissue abnormality identified. | | | | IMPRESSION - | | No acute intrathoracic abnormality identified. | | | | Dictated and Signed by: Rudy Velez MD | | Electronically signed: 04/02/2019 10:48 AM | + + + +---------+ + + | Performing | Address | City/State/Zipcode | Phone Number | | Organization | | | | + +---------+ + + | [facility] | | | | + +---------+ + + documented in this encounter Visit Diagnoses + + | Diagnosis | + + | Cough | + + | Lesion of oral mucosa Other and unspecified diseases of the oral soft tissues | + + documented in this encounter"
--- OUTSIDE RECORDS SUMMARY | ~2020-06-06 | XMS | Encounter Summary ---
Demographics + + + | Address | NEED ADDRESS | | | [place] [address] | + + + | Home Phone | | + + + | Preferred Language | Unknown | + + + | Marital Status | Single | + + + | Zoroastrian Affiliation | Unknown | + + + | Race | White | + + + | Ethnic Group | Not or | + + + Author + + + | Author | [facility] | | | and [place] | + + + | Organization | [facility] | | | [...] + | Hector Garcia | [place] | [place] [address] | | + + + + + Care Team Providers + +------+ + | Care Stage Set Up Worker Name | Role | Phone | [...] Medicine | NAHUN | Christian Gupta | [place] [address] | | | Required | | (obstructive | [address] [place] | | | | | sleep | [place] | [place], | | | | | apnea) CSA | [facility] | [place] [address] | | | | | (central | [place], [place] | Phone: | | | | | sleep apnea) | [address] | [phone] | | | | | Procedures | Phone: | Fax: | | | | | [place] POLYSOM | [phone] | [phone] | | | | | 6/>YRS | Fax: | | | | | | SLEEP W/CPAP | [phone] | | | | | | 4/> ADDL | | | | | | | ALVARO ATTND | | | | | | | [place] POLYSOM | | | | | | [...] | +--------+ + + + + | 02/06/ | Hospital | [facility] | Christian Sosa | NAHUN (obstructive | | 2018 - | Encounter | MED CTR SLEEP | MD [address] [place] [address] | sleep apnea); CSA | | | | CENTER [address] | [place] [facility] | (central sleep | | 02/07/ | | [place], [place] | [facility] [place] [address] | apnea); REM sleep | | 2017 | | [id number] | [phone] | behavior disorder; | | | | [phone] | | Periodic limb | | | | | | movements of sleep | +--------+ + + + + Social [...] the evening as | | 0 | /12/13 | | | (ELAVIL) 10 mg | [...] + + + +---------+ + + | methylPREDNISolone | take as directed on | | 0 | 12/06/19 | | | (MEDROL DOSEPAK) 4 | pack | | | 18 | 8 | | mg tablet | | | | | [...] + documented as of this encounter Procedure Notes Christian Sosa Jr., MD - 02/07/2018 3:08 PM PDTAssociated Order(s): SLEEP STUDY PAP TITR ATIONProcedure(s): SLEEP STUDY PAP TITRATIONPre-Procedure Diagnose(s): NAHUN (obstructive slee p apnea); CSA (central sleep apnea); REM sleep behavior disorderPost-Procedure Diagnose(s): NAHUN (obstructive sleep apnea); CSA (central sleep apnea); REM sleep behavior disorder; Perio dic limb movements of sleep [facility] [place] [address] Positive Airway Pressure Titration Report on Mani Garcia performed on February 06, 2018. Clinical Information: Mani Garcia is a 52 y.o. male who underwent polysomnographically guided PAP on February 06, 2018. Diagnostic nocturnal polysomnography performed in December 26 demonstrated an Apnea Hypopnea Index of 11.6 with a adarsh oxygen saturation of 89%. Both obstructive as well as central sleep apnea as were noted. Mild periodic limb movements of s leep are noted. Additionally mild limb movements were noted during rapid eye movement sleep . Technical Information: Please see technical data which is attached. Definitions (The AASM Manual for the Scoring of Sleep and Associated Events, Version 2.4; 2 017): Apnea: There is a drop in the peak signal excursion by 90% or greater of pre-event baselin e using an oronasal thermal sensor (diagnostic study), PAP device flow (titration study), or an alternative apnea sensor (diagnostic study); the duration of the 90% or greater drop in sensor signal is 10 seconds or longer. Obstructive Apnea: Event associated with continued or increased inspiratory effort throug hout the entire period of absent airflow. Central Apnea: Event associated with absent inspiratory effort throughout the entire abhinav od of absent airflow. Mixed Apnea: Event associated with absent inspiratory effort in the initial portion of th e event followed by resumption of inspiratory effort during the second portion of the event. Hypopnea: The peak signal excursions drop by greater than or equal to 30% of pre-event bas ramana using a recommended or alternative airflow sensor and the duration of the >= 30% drop in signal excursion is greater than or equal to 10 seconds and there is a greater than or eq ual to a 4% oxygen desaturation from pre-event baseline. Respiratory Event Related Arousal: A sequence of breaths lasting 10 seconds or longer jacqueline acterized by increasing respiratory effort or by flattening of the inspiratory portion of th e nasal pressure (diagnostic study) or PAP device flow (titration study) waveform leading to arousal from sleep when the sequence of breaths does not meet criteria for an apnea or hypo pnea. Sleep Architecture: Lights out was recorded at 2101 hundred hours on February 06, 2018 and ligh ts on was recorded at 0637 hundred hours on February 07, 2018. The latency to sleep onset was pro longed at 69 minutes. The patient slept for 342 minutes out of 576.5 minutes of study time resulting an a sleep efficiency that was low at 59.3 %. The amount of N1 sleep was elevated at 12 % of the Total Sleep Time; the amount of N2 sleep was elevated at 76.8 % of the Total Sleep Time; the amount of N3 sleep was low at 0% of the Total Sleep Time; the amount of REM sleep was low at 11.3 % of the Total Sleep Time and the latency to REM sleep was prolonged at 227 minutes. Sleep was recorded in the following positions: left lateral decubitus 45.3%, right lateral decubitus 14.6%, supine 40.1%, prone 0%. Sleep was mildly fragmented; the Arousal Index was 18.6. The patient reported this to be better than a "usual" night's sleep. Cardiopulmonary Monitoring: The heart rate averaged in the upper 80s to 90s beats per minut e. Mild rate variability was noted. The rhythm was sinus. In the course of the evening the patient started at CPAP of 5 cm was titrated to CPAP of 9 cm primarily because of snoring. Obstructive apneas were well controlled at all CPAP pressu res as were central apneas. Oxygen saturation was normal. Limb Movement Monitoring: There were 372 Periodic Limb Movements (PLMS Index 65.3) of which 20 were associated with arousals; the PLMS Arousal Index was normal at 3.5. Miscellaneous: Elevated chin EMG as well as phasic EMG elevations were noted in REM sleep. Minor foot movements were also noted during REM sleep. Interpretation: This is a satisfactory positive airway pressure titration study. CPAP in the 5-9 cm range controls obstructive sleep apnea and central sleep apnea. Periodic limb movements of sleep are present but they did not seem to significantly fragmen luis armando sleep. 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 Suggestions: 1. The principles of Sleep Hygiene should be reviewed with the patient 2. Auto titrating CPAP 5-10 cm is advised. 3. Careful clinical follow-up is also advised. 4. A ferritin level should be checked. If the ferritin level is less than 75ug/ml, iron sup plementation should be considered to raise the ferritin to above 75ug/ml. This may help with PLMS. Once the ferritin level is above 75ug/ml, pharmacologic therapy of PLMS/RLS should be considered if they are felt to be clinically significant. Christian Sosa Jr., MD, [facility] [employer] [facility] [place], [place] Clinical ladle repairman [place], [place] docum ented in this encounter Plan of Treatment Not on filedocumented as of this encounter Procedures + +--------+ + + + | Procedure Name | Priori | Date/Time | Associated Diagnosis | Comments | | | ty | | | | + +--------+ + + + | SLEEP STUDY PAP | Routin | 02/07/2018 | | Results for this | | TITRATION | e | 3:08 PM | | procedure are in the | | | | PDT | | results section. | + +--------+ + + + | SLEEP STUDY PAP | Routin | 02/07/2018 | | Results for this | | TITRATION | e | 3:08 PM | | procedure are in the | | | | PDT | | results section. | + +--------+ + + + documented in this encounter Results Sleep study PAP titration (02/07/2018 3:08 PM PDT) + + + | Narrative | Performed At | + + + | Christian Gupta | | | Ian Leavitt MD 02/07/2018 15:15 [facility] | | | [place] [address] | | | Positive Airway Pressure Titration Report on Mani Garcia performed | | | on February 06, 2018. Clinical Information: Mani Garcia is a 52 y.o. | | | male who underwent polysomnographically guided PAP on February 06, 2018. | | | Diagnostic nocturnal polysomnography performed in December 26, 2017 | | | demonstrated an Apnea Hypopnea Index of 11.6 with a adarsh oxygen | | | saturation of 89%. Both obstructive as well as central sleep apnea | | | as were noted. Mild periodic limb movements of sleep are noted. | | | Additionally mild limb movements were noted during rapid eye | | | movement sleep. Technical Information: Please see technical data which | | | is attached. Definitions (The AASM Manual for the Scoring of Sleep | | | and Associated Events, Version 2.4; 2017): Apnea: There is a drop in | | | the peak signal excursion by 90% or greater of pre-event baseline | | | using an oronasal thermal sensor (diagnostic study), PAP device flow | | | (titration study), or an alternative apnea sensor (diagnostic study); | | | the duration of the 90% or greater drop in sensor signal is 10 seconds | | | or longer. Obstructive Apnea: Event associated with continued or | | | increased inspiratory effort throughout the entire period of absent | | | airflow. Central Apnea: Event associated with absent inspiratory | | | effort throughout the entire period of absent airflow. Mixed Apnea: | | | Event associated with absent inspiratory effort in the initial portion | | | of the event followed by resumption of inspiratory effort during the | | | second portion of the event. Hypopnea: The peak signal excursions drop | | | by greater than or equal to 30% of pre-event baseline using a | | | recommended or alternative airflow sensor and the duration of the >= | | | 30% drop in signal excursion is greater than or equal to 10 seconds | | | and there is a greater than or equal to a 4% oxygen desaturation from | | | pre-event baseline. Respiratory Event Related Arousal: A sequence of | | | breaths lasting 10 seconds or longer characterized by increasing | | | respiratory effort or by flattening of the inspiratory portion of the | | | nasal pressure (diagnostic study) or PAP device flow (titration study) | | | waveform leading to arousal from sleep when the sequence of breaths | | | does not meet criteria for an apnea or hypopnea. Sleep Architecture: | | | Lights out was recorded at 2101 hundred hours on February 06, 2018 and | | | lights on was recorded at 0637 hundred hours on February 07, 2018. The | | | latency to sleep onset was prolonged at 69 minutes. The patient slept | | | for 342 minutes out of 576.5 minutes of study time resulting an a | | | sleep efficiency that was low at 59.3 %. The amount of N1 sleep was | | | elevated at 12 % of the Total Sleep Time; the amount of N2 sleep was | | | elevated at 76.8 % of the Total Sleep Time; the amount of N3 sleep was | | | low at 0% of the Total Sleep Time; the amount of REM sleep was low | | | at 11.3 % of the Total Sleep Time and the latency to REM sleep was | | | prolonged at 227 minutes. Sleep was recorded in the following | | | positions: left lateral decubitus 45.3%, right lateral decubitus | | | 14.6%, supine 40.1%, prone 0%. Sleep was mildly fragmented; the | | | Arousal Index was 18.6. The patient reported this to be better than a | | | "usual" night's sleep. Cardiopulmonary Monitoring: The heart rate | | | averaged in the upper 80s to 90s beats per minute. Mild rate | | | variability was noted. The rhythm was sinus. In the course of the | | | evening the patient started at CPAP of 5 cm was titrated to CPAP of 9 | | | cm primarily because of snoring. Obstructive apneas were well | | | controlled at all CPAP pressures as were central apneas. Oxygen | | | saturation was normal. Limb Movement Monitoring: There were 372 | | | Periodic Limb Movements (PLMS Index 65.3) of which 20 were associated | | | with arousals; the PLMS Arousal Index was normal at 3.5. | | | Miscellaneous: Elevated chin EMG as well as phasic EMG elevations were | | | noted in REM sleep. Minor foot movements were also noted during REM | | | sleep. Interpretation: This is a satisfactory positive airway | | | pressure titration study. CPAP in the 5-9 cm range controls | | | obstructive sleep apnea and central sleep apnea.Periodic limb | | | movements of sleep are present but they did not seem to significantly | | | fragmented sleep.Mild REM sleep behavior disorder is once again | | | present. Suggestions:1. The principles of Sleep Hygiene should be | | | reviewed with the patient2. Auto titrating CPAP 5-10 cm is | | | advised.3. Careful clinical follow-up is also advised.4. A ferritin | | | level should be checked. If the ferritin level is less than 75ug/ml, | | | iron supplementation should be considered to raise the ferritin to | | | above 75ug/ml. This may help with PLMS. Once the ferritin level is | | | above 75ug/ml, pharmacologic therapy of PLMS/RLS should be considered | | | if they are felt to be clinically significant. Christian Sosa Jr., | | | , UNITED HEALTH SERVICESSMMedical DirectorCorewell Health Butterworth HospitalelhamScripp[facility] | | | [facility] | | | Production Designer of [place], [place] | | |In the course of the evening the patient started at CPAP of 5 cm | | |was titrated to CPAP of 9 cm primarily because of snoring. | | |Obstructive apneas were well controlled at all CPAP pressures as | | |were central apneas. Oxygen saturation was normal. | | | | | |Limb Movement Monitoring: There were 372 Periodic Limb Movements | | |(PLMS Index 65.3) of which 20 were associated with arousals; the | | |PLMS Arousal Index was normal at 3.5. | | | | | |Miscellaneous: Elevated chin EMG as well as phasic EMG elevations | | |were noted in REM sleep. Minor foot movements were also noted | | |during REM sleep. | | | | | |Interpretation: This is a satisfactory positive airway pressure | | |titration study. | | | | | |CPAP in the 5-9 cm range controls obstructive sleep apnea and | | |central sleep apnea. | | |Periodic limb movements of sleep are present but they did not | | |seem to significantly fragmented sleep. 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 | | | | | |Suggestions: | | |1. The principles of Sleep Hygiene should be reviewed with the | | |patient | | |2. Auto titrating CPAP 5-10 cm is advised. | | |3. Careful clinical follow-up is also advised. | | |4. A ferritin level should be checked. If the ferritin level is | | |less than 75ug/ml, iron supplementation should be considered to | | |raise the ferritin to above 75ug/ml. This may help with PLMS. | | |Once the ferritin level is above 75ug/ml, pharmacologic therapy | | |of PLMS/RLS should be considered if they are felt to be | | |clinically significant. | | | | | |Christian Sosa Jr., MD, [facility] | | |[employer] Consultant | | |[facility] | | |[facility] | | |RONNY Torres | | |Clinical ladle repairman | | |[facility] | | |[place], [place] | | + + + + + | Procedure Note | + + | Christian Sosa Jr., MD - 02/07/2018 3:08 PM PDT [facility] | | Disorders [place], [place] [address] Airway Pressure | | Titration Report on Mani Garcia performed on February 06, 2018.Clinical Information: | | Mani Garcia is a 52 y.o. male who underwent polysomnographically guided PAP on January | | 2017. Diagnostic nocturnal polysomnography performed in December 26, 2017 demonstrated | | an Apnea Hypopnea Index of 11.6 with a adarsh oxygen saturation of 89%. Both obstructive | | as well as central sleep apnea as were noted. Mild periodic limb movements of sleep | | are noted. Additionally mild limb movements were noted during rapid eye movement | | sleep.Technical Information: Please see technical data which is attached.Definitions | | (The AASM Manual for the Scoring of Sleep and Associated Events, Version 2.4; 2017): | | Apnea: There is a drop in the peak signal excursion by 90% or greater of pre-event | | baseline using an oronasal thermal sensor (diagnostic study), PAP device flow (titration | | study), or an alternative apnea sensor (diagnostic study); the duration of the 90% or | | greater drop in sensor signal is 10 seconds or longer. Obstructive Apnea: Event | | associated with continued or increased inspiratory effort throughout the entire period | | of absent airflow. Central Apnea: Event associated with absent inspiratory effort | | throughout the entire period of absent airflow. Mixed Apnea: Event associated with | | absent inspiratory effort in the initial portion of the event followed by resumption of | | inspiratory effort during the second portion of the event. Hypopnea: The peak signal | | excursions drop by greater than or equal to 30% of pre-event baseline using a | | recommended or alternative airflow sensor and the duration of the >= 30% drop in signal | | excursion is greater than or equal to 10 seconds and there is a greater than or equal to | | a 4% oxygen desaturation from pre-event baseline. Respiratory Event Related Arousal: A | | sequence of breaths lasting 10 seconds or longer characterized by increasing respiratory | | effort or by flattening of the inspiratory portion of the nasal pressure (diagnostic | | study) or PAP device flow (titration study) waveform leading to arousal from sleep when | | the sequence of breaths does not meet criteria for an apnea or hypopnea.Sleep | | Architecture: Lights out was recorded at 2101 hundred hours on February 06, 2018 and lights | | on was recorded at 0637 hundred hours on February 07, 2018. The latency to sleep onset was | | prolonged at 69 minutes. The patient slept for 342 minutes out of 576.5 minutes of | | study time resulting an a sleep efficiency that was low at 59.3 %. The amount of N1 | | sleep was elevated at 12 % of the Total Sleep Time; the amount of N2 sleep was elevated | | at 76.8 % of the Total Sleep Time; the amount of N3 sleep was low at 0% of the Total | | Sleep Time; the amount of REM sleep was low at 11.3 % of the Total Sleep Time and the | | latency to REM sleep was prolonged at 227 minutes.Sleep was recorded in the following | | positions: left lateral decubitus 45.3%, right lateral decubitus 14.6%, supine 40.1%, | | prone 0%.Sleep was mildly fragmented; the Arousal Index was 18.6.The patient reported | | this to be better than a "usual" night's sleep.Cardiopulmonary Monitoring: The heart | | rate averaged in the upper 80s to 90s beats per minute. Mild rate variability was | | noted. The rhythm was sinus.In the course of the evening the patient started at CPAP of | | 5 cm was titrated to CPAP of 9 cm primarily because of snoring. Obstructive apneas were | | well controlled at all CPAP pressures as were central apneas. Oxygen saturation was | | normal. Limb Movement Monitoring: There were 372 Periodic Limb Movements (PLMS Index | | 65.3) of which 20 were associated with arousals; the PLMS Arousal Index was normal at | | 3.5.Miscellaneous: Elevated chin EMG as well as phasic EMG elevations were noted in REM | | sleep. Minor foot movements were also noted during REM sleep.Interpretation: This is a | | satisfactory positive airway pressure titration study.CPAP in the 5-9 cm range controls | | obstructive sleep apnea and central sleep apnea.Periodic limb movements of sleep are | | present but they did not seem to significantly fragmented sleep.Mild REM sleep behavior | | disorder is once again present.Suggestions:1. The principles of Sleep Hygiene should be | | reviewed with the patient2. Auto titrating CPAP 5-10 cm is advised.3. Careful clinical | | follow-up is also advised.4. A ferritin level should be checked. If the ferritin level | | is less than 75ug/ml, iron supplementation should be considered to raise the ferritin to | | above 75ug/ml. This may help with PLMS. Once the ferritin level is above 75ug/ml, | | pharmacologic therapy of PLMS/RLS should be considered if they are felt to be clinically | | significant.Christian Sosa Jr., MD, [facility]ITALMedical DirectorCleveland Clinic Avon Hospitalelham [facility] | | Sleep Disorders CenterProvimadison hospitalce [facility] StreetWalla Fitzg[facility] Hospital FLClinical | | Production Designer of [place], [place] | |[facility] | |[place], [place] | |Clinical ladle repairman | |[facility] | |[place], [place] | + + documented in this encounter Visit Diagnoses + + | Diagnosis | + + | NAHUN (obstructive sleep apnea) Obstructive sleep apnea (adult) (pediatric) | + + | CSA (central sleep apnea) Unspecified sleep apnea | + + | REM sleep behavior disorder | + + | Periodic limb movements of sleep Periodic limb movement disorder | + + documented in this encounter
--- OUTSIDE RECORDS SUMMARY | ~2020-06-06 | XMS | Encounter Summary ---
Demographics + + + | Address | NEED ADDRESS | | | [place] [address] | + + + | Home Phone | | + + + | Preferred Language | Unknown | + + + | Marital Status | Single | + + + | Judaism Affiliation | Unknown | + + + | Race | White | + + + | Ethnic Group | Not or | + + + Author + + + | Author | [facility] | | | and [place] | + + + | Organization | [facility] | | | [...] Hector Garcia | ECON | [place] [address] | | + + + + + Care Team Providers + +------+ + | Care Fusing Machine Feeder Name | Role | Phone | + +------+ + | Aryan Grossman MD | PCP | | + +------+ + Reason for Visit + + + | Reason | Comments | + + + | Follow-up | 6 week follow up | + + + | Hypertension | only taking cozaar | + + + Encounter Details +--------+---------+ + + + | Date | Type | Department | Care Team | Description | +--------+---------+ + + + | 05/14/ | Office | [facility] | Aryan Grossman, | Essential | | 2015 | Visit | MEDICINE [address] | [address] | hypertension | | | | [address] [place] [address], | [address], | (Primary Dx); Sprain | | | | [place] [address] | [place] [address] | of right elbow, | | | | [phone] | [phone] | initial encounter; | | | | | | Place of occurrence, | | | | | | industrial places | | | | | | and premises; | | | | | | Anxiety | +--------+---------+ + + + Social History [...] + + + | Blood Pressure | 130/100 | 05/14/2015 1:36 PM | | | | | PDT | | + + + + + | Pulse | 112 | 05/14/2015 1:36 PM | | | | | PDT | | + + + + + | Temperature | 36.8 C (98.3 F) | 05/14/2015 1:36 PM | | | | | PDT | | + + + + + | Respiratory Rate | 14 | 05/14/2015 1:36 PM | | | | | PDT | | + + + + + | Oxygen Saturation | 98% | 05/14/2015 1:36 PM | | | | | PDT | | + + + + + | Inhaled Oxygen | - | - | | | Concentration | | | | + + + + + | Weight | 87.5 kg (192 lb 12.8 | 05/14/2015 1:36 PM | | | | oz) | PDT | | + + + + + | Height | 175.3 cm (5' 9") | 05/14/2015 1:36 PM | | | | | PDT | | + + + + + | Body Mass Index | 28.47 | 05/14/2015 1:36 PM | | | | | PDT | | + + + + + documented in this encounter Progress Notes Aryan Grossman MD - 05/14/2015 1:57 PM PDTFormatting of this note might be different f rom the original. Subjective: Patient ID: Mani Garcia is a 50 y.o. male. HPI HTN, there is no recent chest pain SOB ankle swelling etc. He is compliant with his meds. Depression and Anxiety, He is still depressed but not taking sertraline. He is on probation, Missed alcohol appointment on Tuesday He fell off the wagon this past w eekend. PMH: HTN Hyperlipidemia Alcoholism PSH: Right thumb 2008 Lumbar Diskectomy 1992 Fhx: Mom 64 Ovarian Cancer Dad 50 of MS complications Sister 54, recurrent lymphoma,. First diagnosed with cancer in 40's Shx: Born in [place] , 16 year old son Lives in [place] since 2012, Grew up in Works heavy [...] no gross lesions Assessment: 1. Essential hypertension losartan (COZAAR) 50 mg tablet 2. Sprain of right elbow, initial encounter naproxen (NAPROSYN) [address] of occurrence, industrial places and premises naproxen (NAPROSYN) 500 mg tablet 4. Anxiety ALPRAZolam (XANAX) 0.25 mg tablet Plan: Restart the sertraline. Stop drinking. Monitor BP. RTC 6 weeks, Otherwise continue curr ent medical regimen. documented in this encounter Plan of Treatment Not on filedocumented as of this encounter Visit Diagnoses + + | Diagnosis | + + | Essential hypertension - Primary Unspecified essential hypertension | + + | Sprain of right elbow, initial encounter | + + | Place of occurrence, industrial places and premises | + + | Anxiety Anxiety state, unspecified | + + documented in this encounter
--- OUTSIDE RECORDS SUMMARY | ~2020-06-06 | XMS | Encounter Summary ---
Demographics + + + | Address | NEED ADDRESS | | | [place] [address] | + + + | Home Phone | | + + + | Preferred Language | Unknown | + + + | Marital Status | Single | + + + | Caodaism Affiliation | Unknown | + + + | Race | White | + + + | Ethnic Group | Not or | + + + Author + + + | Author | [facility] | | | and [place] | + + + | Organization | [facility] | | [...] Hector Garcia | ECON | [place] [address] | | + + + + + Care Team Providers + +------+ + | Care Salt Manager Name | Role | Phone | + +------+ + | Aryan Grossman MD | PCP | | + +------+ + Reason for Visit + + + | Reason | Comments | + + + | Follow-up | 6 week | + + + Encounter Details +--------+---------+ + + + | Date | Type | Department | Care Team | Description | +--------+---------+ + + + | 06/25/ | Office | [facility] | Aryan Grossman, | Essential | | 2015 | Visit | MEDICINE [address] | [address] | hypertension | | | | [address], | [address], | (Primary Dx); | | | | [place] [address] | [place] [address] | Depression with | | | | [phone] | [phone] | anxiety; Alcoholism | | | | | | ([facility]); Depression; | | | | | | Insomnia | +--------+---------+ + + + Social History [...] | Yes | | 0.0 | States quit drinking [...] + + + | Blood Pressure | 142/90 | 06/25/2015 1:38 PM | | | | | PDT | | + + + + + | Pulse | 93 | 06/25/2015 1:38 PM | | | | | PDT | | + + + + + | Temperature | 36.9 C (98.4 F) | 06/25/2015 1:38 PM | | | | | PDT | | + + + + + | Respiratory Rate | 16 | 06/25/2015 1:38 PM | | | | | PDT | | + + + + + | Oxygen Saturation | 98% | 06/25/2015 1:38 PM | | | | | PDT | | + + + + + | Inhaled Oxygen | - | - | | | Concentration | | | | + + + + + | Weight | 88.9 kg (196 lb) | 06/25/2015 1:38 PM | | | | | PDT | | + + + + + | Height | 175.3 cm (5' 9") | 06/25/2015 1:38 PM | | | | | PDT | | + + + + + | Body Mass Index | 28.94 | 06/25/2015 1:38 PM | | | | | PDT | | + + + + + documented in this encounter Progress Notes Aryan Grossman MD - 06/25/2015 1:45 PM PDTFormatting of this note might be different f rom the original. Subjective: Patient ID: Mani Garcia is a 50 y.o. male. HPI HTN, there is no recent chest pain SOB ankle swelling etc. He is compliant with his meds. Depression and Anxiety, He is still depressed but now taking sertraline. He has difficult sleep and sometimes his mind does not shut off at night. Alcoholism, he has not drank in three weeks and is enrolling in classes. PMH: HTN Hyperlipidemia Alcoholism PSH: Right thumb 2008 Lumbar Diskectomy 1992 Fhx: Mom 64 Ovarian Cancer Dad 50 of MS complications Sister 54, recurrent lymphoma,. 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 [employer] Drinks 5 drinks of whisky per night, [...] ideas,no confusion and no agitation. some Depression, some anxiety,some sleep problems Objective: Physical Exam Heent, WNL, No carotid bruit Chest CTAB Heart RR&R /s M Abd S,NT,ND,BS+ Ext, no CCor E Neuro Non-focal Lymph, no cervical, axillary, inguinal adenopathy Musculoskeletal, no gross deformity or loss or range of motion Skin, no gross lesions Assessment: 1. Essential hypertension 2. Depression with anxiety 3. Alcoholism (HCC) Plan: He looks and feels improved to me. Will try ambien and increase zoloft. documented in this encounter Plan of Treatment Not on filedocumented as of this encounter Visit Diagnoses + + | Diagnosis | + + | Essential hypertension - Primary Unspecified essential hypertension | + + | Depression with anxiety Dysthymic disorder | + + | Alcoholism (HCC) Other and unspecified alcohol dependence, unspecified drinking | | behavior | + + | Depression Depressive disorder, not elsewhere classified | + + | Insomnia Insomnia, unspecified | + + documented in this encounter
--- OUTSIDE RECORDS SUMMARY | ~2020-06-06 | XMS | Encounter Summary ---
Demographics + + + | Address | NEED ADDRESS | | | [place] [address] | + + + | Home Phone [...] Author + + + | Author | [facility] | | | and [place] | + + + | Organization | [facility] | | | [...] + | Hector Garcia | ECON | [place] [address] | | + + + + + Care Team Providers + +------+ + | Care Business Solution Analyst Name | Role | Phone | [...] neoplasm of | [address] | | | | | prostate | [address] | [place], | | | | | (HCC) | STREET | [place] [address] | | | | | Secondary | [place], | Phone: | | | | | malignant | [place] | [phone] | | | | | neoplasm of | [address] | Fax: | | | | | bone (HCC) | Phone: | [phone] | | | | | Procedures | [phone] | | | | | | DE DENOSUMAB | Fax: | | | | | | INJECTION, | [phone] | | | | | | 1 MG | | | +--------+--------+ + + + + Encounter Details +--------+ + + + + | Date | Type | Department | Care Team | Description | +--------+ + + + + | 05/05/ | Hospital | [facility] | NataleeMaged, | Bone metastases | | 2018 | Encounter | MED CTR CHEMO | MD [address] | (HCC); Prostate | | | | INFUSION [address] [place], | cancer (HCC) | | | | [place], | [place] [address] | | | | | [place] [address] | [phone] | | | | | [phone] | | | +--------+ + + + [...] documented as of this encounter Progress Notes Dianne Farnsworth RN - 05/05/2018 11:59 AM PDTDc/d amb with self. Has return appts.Electr onically signed by Dianne Farnsworth RN at 05/05/2018 11:59 AM PDTdocumented in this encoun ter Miscellaneous Notes Treatment Plan - Dianne Farnsworth RN - 05/05/2018 11:46 AM PDTViewed chart for weight, v ital signs and lab results. Also viewed chart for completion of medication and allergy revi ew prior to treatment.Dianne Farnsworth RNDATE/TIME: 05/05/2018 11:46 documented in this encounter Plan of Treatment [...] (XGEVA) 120 mg/1.7 mL | Given | 05/05/20 | 120 mg | | Arm-Left | | injection 120 mg 120 mg, | | 18 11:57 | | | Upper | | Subcutaneous, ONCE, 05/05/18 | | AM PDT | | | | | at 1215, For 1 dose, Keep in | | | | | | | refrigerator. Allow to attain | | | | | | | room temperature prior to use., | | | | | | + +--------+ +--------+------+ + +---+---+ | | | +---+---+ documented in this encounter"
--- OUTSIDE RECORDS SUMMARY | ~2020-06-06 | XMS | Encounter Summary ---
Demographics + + + | Address | NEED ADDRESS | | | [place] [address] | + + + | Home Phone [...] Hector Garcia | ECON | [place] [address] | | + + + + + Care Team Providers + +------+ + | Care Model And Pattern Supervisor Name | Role | Phone | + +------+ + | Aryan Grossman MD | PCP | | + +------+ + Encounter Details +--------+ + + + + | Date | Type | Department | Care Team | Description | +--------+ + + + + | 04/14/ | Hospital | [facility] | Aryan Grossman, | Leukocytosis | | 2015 | Encounter | MED CTR LABORATORY | [address] | | | | | [address] [place] | [address] [place], | | | | | [place], [place] | [place] [address] | | | | | [address] | [phone] | | | | | [phone] | | | +--------+ + + + [...] (XANAX) | Take 1 tablet by | 10 | 0 | 04/14/20 | | | 0.25 mg | mouth Twice daily | tablet | | 15 | 5 | | tabletIndications: | as needed for [...] | 1 | 01/02/20 | | | (INAILDEVONRIL) | | tablet | | 15 | [...] + +---------+ + + | sertraline | 3 po qd | 90 | 0 | 04/02/20 | | | (ZOLOFT) 50 mg | | tablet | | 15 | 5 [...] + | CBC WITH | Routin | 04/14/2015 | Leukocytosis | Results for this | | DIFFERENTIAL | e | 10:19 AM | | procedure are in the | | | | PDT | | results section. | + +--------+ + + + documented in this encounter Results CBC with Differential (04/14/2015 10:19 AM PDT) + + + + + + | Component | Value | Ref Range | Performed | Pathologist | | | | | At | Signature | + + + + + + | White Blood | 10.7 | 4.0 - 11.0 K/uL | [facility] | | | Cells | | | [facility] | | | | | | [facility] | | | | | | [facility] - | | | | | | LABORATORY | | + + + + + + | Red Blood | 4.95 | 4.30 - 5.70 | [facility] | | | Cells | | M/uL | [facility] | | | | | | [facility]ICAL | | | | | | C[facility] - | | | | | | LABORATORY | | + + + + + + | Hemoglobin | 16.7 | 13.5 - 18.0 | [facility] | | | | | g/dL | [facility] | | | | | | [facility] | | | | | | C[facility] - | | | | | | LABORATORY | | + + + + + + | Hematocrit | 50.8 | 40.0 - 51.0 % | [facility] | | | | | | [facility] | | | | | | [facility] | | | | | | C[facility] - | | | | | | LABORATORY | | + + + + + + | MCV | 102.7 (H) | 83.0 - 101.0 fL | [...] + + + + | MCHC | 32.8 | 32.0 - 36.0 | [facility] | | | | | g/dL | [facility] | | | | | | [facility]ICAL | | | | | | CENTER - | | | | | | LABORATORY | | + + + + + + | RDW-CV | 14.5 | <15.0 % | [facility] | | | | | | [facility] | | | | | | [facility] | | | | | | [facility] - | | | | | | LABORATORY | | + + + + + + | Platelet | 320 | 140 - 440 K/uL | [facility] | | | Count | | | [facility] | | | | | | [facility] | | | | | | C[facility] - | | | | | | LABORATORY | | + + + + + + | MPV | 8.0 | fL | [facility] | | | | | | [facility] | | | | | | [facility] | | | | | | C[facility] - | | | | | | LABORATORY | | + + + + + + | % | 75.7 | 45.0 - 82.0 % | [facility] | | | Neutrophils | | | [facility] | | | | | | [facility]ICAL | | | | | | CENTER - | | | | | | LABORATORY | | + + + + + + | % | 18.0 (L) | 20.0 - 45.0 % | [facility] | | | Lymphocytes | | | [facility] | | | | | | MEDICAL | | | | | | CENTER - | | | | | | LABORATORY | | + + + + + + | % Monocytes | 4.4 | 4.0 - 12.0 % | [facility] | | | | | | [facility] | | | | | | [facility] | | | | | | C[facility] - | | | | | | LABORATORY | | + + + + + + | % | 0.7 | 0.0 - 5.0 % | [facility] | | | Eosinophils | | | [facility] | | | | | | MEDICAL | | | | | | CENTER - | | | | | | LABORATORY | | + + + + + + | % Basophils | 1.2 (H) | 0.0 - 1.0 % | [facility] | | | | | | [facility] | | | | | | [facility]ICAL | | | | | | CENTER - | | | | | | LABORATORY | | + + + + + + | Absolute | 8.10 | 1.80 - 8.50 | [facility] | | | Neutrophils | | K/uL | [facility] | | | | | | MEDICAL | | | | | | CENTER - | | | | | | LABORATORY | | + + + + + + | Absolute | 1.90 | 0.60 - 3.20 | [facility] | | | Lymphocytes | | K/uL | [facility] | | | | | | MEDICAL | | | | | | CENTER - | | | | | | LABORATORY | | + + + + + + | Absolute | 0.50 | 0.00 - 1.00 | [facility] | | | Monocytes | | K/uL | [facility] | | | | | | MEDICAL | | | | | | CENTER - | | | | | | LABORATORY | | + + + + + + | Absolute | 0.10 | 0.00 - 0.40 | [facility] | | | Eosinophils | | K/uL | [facility] | | | | | | MEDICAL | | | | | | CENTER - | | | | | | LABORATORY | | + + + + + + | Absolute | 0.10 [...] [address] | [place] | [phone] | | [facility] | | [address] | | | - LABORATORY | | | | + + + + + documented in this encounter Visit Diagnoses + + | Diagnosis | + + | Leukocytosis Leukocytosis, unspecified | + + documented in this encounter"
--- OUTSIDE RECORDS SUMMARY | ~2020-06-06 | XMS | Encounter Summary ---
Demographics + + + | Address | NEED ADDRESS | | | [place] [address] | + + + | Home Phone | | + + + | Preferred Language | Unknown | + + + | Marital Status | Single | + + + | Nondenominational Affiliation | Unknown | + + + [...] Hector Garcia | ECON | [place] [address] | | + + + + + Care Team Providers + +------+ + | Care Car Usher Name | Role | Phone | + +------+ + | Aryan Grossman MD | PCP | | + +------+ + Reason for Visit + +--------+ + | Reason | Onset | Comments | | | Date | | + +--------+ + | ED Follow-up | 12/10/ | | | | 2013 | | + +--------+ + Encounter Details +--------+ + + + + | Date | Type | Department | Care Team | Description | +--------+ + + + + | 12/10/ | Telephone | [facility] | Christian Santana | ED Follow-up | | 2013 | | ORTHOPEDIC SURGERY | MD [address] [facility] | | | | | [address] | [place] | | | | | [place] | [address] | | | | | [address] | | | | | | [phone] | | | +--------+ + + + [...] this encounter Miscellaneous Notes Telephone Encounter - Martina Buitrago - 12/11/2013 1:37 PM PDTPer patient he is seeing Dr Green right now and doesn't think this appointment is needed. He is going to see Dr Juan Diego hay in two weeks and will discuss it with him.Electronically signed by Martina Buitrago at 0 12/11/2013 1:40 PM PDTTelephone Encounter - Ely Sullivan - 12/11/2013 1:[address] Santana please schedule patient in 7-10 daysElectronically signed by Ely Sullivan at 11/24 1:15 PM PDTTelephone Encounter - Ashanti Johnston - 12/10/2013 9:15 AM PDTPt was seen [facility] 12[facility]07[facility]13 RT arm (shoulder and elbow) pain. They took xrays and pt was n o immobalized, this is a L&I pt was lifting heavy objects when injury occurred in [place], also sent pt over to DR hernandez office to get apt with him, pls advise when to schedule apt documented in this en counter Plan of Treatment Not on filedocumented as of this encounter Visit Diagnoses Not on filedocumented in this encounter"
--- OUTSIDE RECORDS SUMMARY | ~2020-06-06 | XMS | Encounter Summary ---
Demographics + + + | Address | NEED ADDRESS | | | [place] [address] | + + + | Home Phone | | + + + | Preferred Language | Unknown | + + + | Marital Status | Single | + + + | Gnosticist Affiliation | Unknown | + + + [...] Hector Garcia | ECON | [place] [address] | | + + + + + Care Team Providers + +------+ + | Care Supervisor Component Assembler Name | Role | Phone | + +------+ + | Loi Frausto PA-C | PCP | | + +------+ + Reason for Visit + +--------+ + | Reason | Onset | Comments | | | Date | | + +--------+ + | Lab Results | 01/20/ | | | | 2017 | | + +--------+ + Encounter Details +--------+ + + + + | Date | Type | Department | Care Team | Description | +--------+ + + + + | 01/20/ | Telephone | [facility] | Antony Grider, | Lab Results | | 2018 | | PH[address]SIATRY [address] | MD [address] | | | | | [address] | [place] | | | | | [place] | [address] | | | | | [address] | | | | | | [phone] | | | +--------+ + + + [...] encounter Miscellaneous Notes Telephone Encounter - Emeli Redding, Senior Accounting Analyst - 01/20/2018 12:36 [address] PDTCalle d to inform Mani Garcia of lab results. Left a voicemail message to call our office back . Results were routed via [facility] to pcp. elephone Encounter - Emeli Redding, Medical Katie tant - 01/20/2018 12:36 PM PDT----- Message from Antony Grider MD sent at 01/18/2018 10:45 PDT ----- Abigail, Please let Mani Yovany Garcia know that I have reviewed most of his labs. One of his labs is still pending. The labs back so far demonstrate low potassium, elevated blood sugar (if he was fasting), a nd mild dehydration. Please forward the results to his PCP. Please ask him to follow up with his PCP, Loi Frausto PA-C to discuss treatment of his low potassium, further evaluation of blood sugar, etc. Thank you, Antony Grider MD (Jr.) ----- Message ----- From: Lab, Background User Sent: 01/17/2018 8:16 To: Antony Grider MD do cumented in this encounter Plan of Treatment Not on filedocumented as of this encounter Visit Diagnoses Not on filedocumented in this encounter"
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
--- OUTSIDE RECORDS SUMMARY | ~2020-06-06 | XMS | Encounter Summary ---
Demographics + + + | Address | NEED ADDRESS | | | [place] [address] | + + + | Home Phone [...] Hector Garcia | ECON | [place] [address] | | + + + + + Care Team Providers + +------+ + | Care Monogram Technician Name | Role | Phone | + +------+ + PCP | Unavailable | + +------+ + Encounter Details +--------+ + + + + | Date | Type | Department | Care Team | Description | +--------+ + + + + | 01/05/ | Hospital | [facility] | Zeeshan Hawkins, | | | 1999 | Encounter | MED CTR GENERIC OP | MD [address] | | | | | CONV DEPT [address] | [place], [place] | | | | | [place], | [address] | | | | | [place] [address] | | | | | | [phone] | | | +--------+ + + + [...]
--- OUTSIDE RECORDS SUMMARY | ~2020-06-06 | XMS | Encounter Summary ---
Demographics + + + | Address | NEED ADDRESS | | | [place] [address] | + + + | Home Phone [...] Hector Garcia | ECON | [place] [address] | | + + + + + Care Team Providers + +------+ + | Care Arabic Translator Name | Role | Phone | + +------+ + | Loi Frausto PA-C | PCP | | + +------+ + Encounter Details +--------+ + + + + | Date | Type | Department | Care Team | Description | +--------+ + + + + | 05/04/ | Orders Only | [facility] [place] | [place] | Essential | | 2019 | | NEUROSURGERY [address] | MD [place] [address] | hypertension | | | | [address] | [address] [place] | (Primary Dx); | | | | [place], [place] | [place] [address] | Cervical stenosis of | | | | [address] | [phone] | spine; Elevated | | | | [phone] | | PSA; Prostate cancer | | | | | | ([facility]); Disorder of | | | | | | lipoid metabolism; | | | | | | 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 | [place] | [phone] | | [facility] | | [address] | | | - LABORATORY | | | | + + + + + CBC with Differential (05/07/2019 11:23 [...] | | Eosinophils | | K/uL | [facility] | [...] | | Immature | | K/uL | [facility] | | | Granulocyte | | | [...] + | [facility] | [address] | [place] | [phone] | | [facility] | | [address] | | | - LABORATORY | | [...]
--- OUTSIDE RECORDS SUMMARY | ~2020-06-06 | XMS | Encounter Summary ---
Demographics + + + | Address | NEED ADDRESS | | | [place] [address] | + + + | Home Phone | | + + + | Preferred Language | Unknown | + + + | Marital Status | Single | + + + | Methodist Affiliation | Unknown | + + + [...] Hector Garcia | ECON | [place] [address] | | + + + + + Care Team Providers + +------+ + | Care Wigs Salesperson Name | Role | Phone | + +------+ + | Aryan Grossman MD | PCP | | + +------+ + Reason for Visit + + + | Reason | Comments | + + + | Depression | | + + + | Prostate Cancer | Unable to get Rx for Casodex | + + + Encounter Details +--------+---------+ + + + | Date | Type | Department | Care Team | Description | +--------+---------+ + + + | 07/12/ | Office | [facility] | Aryan Grossman, | Depression (Primary | | 2013 | Visit | MEDICINE [address] [place] [address] | [address] | Dx); Nicotine | | | | [address], | [address] [place] [place], | addiction; Prostate | | | | [place] [address] | [place] [address] | cancer (HCC) | | | | [phone] | [phone] | | | | | | | [...] + + + | Blood Pressure | 130/86 | 07/12/2014 10:33 AM | | | | | PDT | | + + + + + | Pulse | 87 | 07/12/2014 10:33 AM | | | | | PDT | | + + + + + | Temperature | 36.6 C (97.8 F) | 07/12/2014 10:33 AM | | | | | PDT | | + + + + + | Respiratory Rate | 16 | 07/12/2014 10:33 AM | | | | | PDT | | + + + + + | Oxygen Saturation | 98% | 07/12/2014 10:33 AM | | | | | PDT | | + + + + + | Inhaled Oxygen | - | - | | | Concentration | | | | + + + + + | Weight | 93 kg (205 lb) | 07/12/2014 10:33 AM | | | | | PDT | | + + + + + | Height | 175.3 cm (5' 9") | 07/12/2014 10:33 AM | | | | | PDT | | + + + + + | Body Mass Index | 30.27 | 07/12/2014 10:33 AM | | | | | PDT | | + + + + + documented in this encounter Progress Notes Aryan Grossman MD - 07/12/2014 11:13 AM PDTFormatting of this note might be different f rom the original. Subjective: Patient ID: Mani Garcia is a 49 y.o. male. HPI Prostate cancer, He has been followed with Dr Hawkins who sent him [facility]. He has no energy , poor sleep etc. His urine flow is actually better. He is taking the Bicalutamide but has been without for a week. He is seeing Urologist at [facility]. Arthralgias, Ankles, knees, Hands wrists, shoulders elbows [...] drinking. 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 Nicotine addiction, He is feeling better and he now really wants to quit smoking. He is doing quite a bit of walking. PMH: HTN Hyperlipidemia Alcoholism PSH: Right thumb 2007 Lumbar Diskectomy 1992 Fhx: Mom 64 Ovarian Cancer Dad 50 of [place] complications Sister 54, recurrent lymphoma,. 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 [place] Eye Colon Drinks 5 drinks of whisky [...] motion Skin, no gross lesions Assessment: 1. Depression sertraline (ZOLOFT) 50 mg tablet 2. Nicotine addiction varenicline (CHANTIX STARTING MONTH ) 0.5 MG X 11 & 1 MG X 42 tab let 3. Prostate cancer (HCC) Plan: He looks and feels fine. Will continue the zoloft at current dosing. Chantix trial. He w ill continue to follow at [facility]. They are planning to take his prostate out. RTC 2 months. documented in this encounter Plan of Treatment Not on filedocumented as of this encounter Visit Diagnoses + + | Diagnosis | + + | Depression - Primary Depressive disorder, not elsewhere classified | + + | Nicotine addiction Tobacco use disorder | + + | Prostate cancer (HCC) Malignant neoplasm of prostate | + + documented in this encounter
--- OUTSIDE RECORDS SUMMARY | ~2020-06-06 | XMS | Encounter Summary ---
Demographics + + + | Address | NEED ADDRESS | | | [place] [address] | + + + | Home Phone | | + + + | Preferred Language | Unknown | + + + | Marital Status | Single | + + + | Scientologist Affiliation | Unknown | + + + | Race | White | + + + | Ethnic Group | Not or | + + + Author + + + | Author | [facility] | | | and [place] | + + + | Organization | [facility] | | | and [...] + | Hector Garcia | ECON | [place] [address] | | + + + + + Care Team Providers + +------+ + | Care English Professor Name | Role | Phone | [...] | | | Prostate | Simran Powell FLOOR INSPECTOR | [facility] | | | | | cancer (HCC) | [address] | [facility] | | | | | Procedures | [facility] | MEDICAL | | | | | NM Bone | [address] | CENTER [address] | | | | | Scan Whole | [place], [place] | [place] | | | | | Body | [address] | [place], | | | | | | Phone: | [place] [address] | | | | | | [phone] | Phone: | | | | | | Fax: | [phone] | | | | | | [phone] | Fax: | | | | | | | [phone] | +--------+--------+ + + + + Reason for Visit Diagnostic/Screening (Routine) +--------+--------+ + + + + | Status | Reason | Specialty | Diagnoses / | Referred By | Referred To | | | | | Procedures | Contact | Contact | +--------+--------+ + + + + | Closed | | Radiology | Diagnoses | [facility] | [facility] | | | | | Prostate | Simran Powell, FLOOR INSPECTOR | [place] | | | | | cancer (HCC) | [address] | [facility] | | | | | Procedures | [facility] | MEDICAL | | | | | NM Bone | [address] | CENTER [address] | | | | | Scan Whole | [place], [place] | [place] | | | | | Body | [address] | [place], | | | | | | Phone: | [place] [address] | | | | | | [phone] | Phone: | | | | | | Fax: | [phone] | | | | | | [phone] | Fax: | | | | | | | [phone] | +--------+--------+ + + + + Encounter Details +--------+ + + + + | Date | Type | Department | Care Team | Description | +--------+ + + + + | 07/20/ | Hospital | [facility] | Simran Osman, | Prostate cancer | | 2017 | Encounter | MED CTR NUCLE[facility] | FLOOR INSPECTOR [address] | ([facility]LY [facility]) | | | | MEDICINE [address] | [address] [place] | | | | | [place], | [place], [place] | | | | | [place] [address] | [address] | | | | | [phone] | [phone] | | | | | | | [...] | technetium [id number] medronate | Given | 07/20/20 | 25 | | | | (MDP) injection 25 millicurie 25 | | 17 9:59 | millicur | | | | millicurie, Intravenous, ONCE | | AM PDT | ies | | | | PRN, Other, Starting 07/20/17 | | | | | | | at 0959, For 1 dose, Nuclear | | | | | | | Medicine | | | | | | + +--------+ + +------+------+ +---+---+ | | | +---+---+ documented in this encounter"
--- OUTSIDE RECORDS SUMMARY | ~2020-06-06 | XMS | Encounter Summary ---
Demographics + + + | Address | NEED ADDRESS | | | [place] [address] | + + + | Home Phone [...] + + + | Author | [facility] | | | and [place] | + + + | Organization | [facility] | | | [...] Hector Garcia | ECON | [place] [address] | | + + + + + Care Team Providers + +------+ + | Care Sand Conditioner Name | Role | Phone | + +------+ + | Aryan Grossman MD | PCP | | + +------+ + Reason for Visit +---------+ + | Reason | Comments | +---------+ + | Anxiety | would like to talk about anxiety. Would like to have PSA level | | | checked. | +---------+ + Encounter Details +--------+---------+ + + + | Date | Type | Department | Care Team | Description | +--------+---------+ + + + | 04/02/ | Office | [facility] | Aryan Grossman, | Stress reaction | | 2015 | Visit | MEDICINE [facility] | [address] | (Primary Dx); | | | | [address] [place], | [place], | Depression with | | | | [place] [address] | [place] [address] | anxiety; Depression; | | | | [phone] | [phone] | Prostate cancer | | | | [...] + + + | Blood Pressure | 112/86 | 04/02/2015 1:40 PM | | | | | PDT | | + + + + + | Pulse | 79 | 04/02/2015 1:40 PM | | | | | PDT | | + + + + + | Temperature | 36.9 C (98.5 F) | 04/02/2015 1:40 PM | | | | | PDT | | + + + + + | Respiratory Rate | 18 | 04/02/2015 1:40 PM | | | | | PDT | | + + + + + | Oxygen Saturation | 97% | 04/02/2015 1:40 PM | | | | | PDT | | + + + + + | Inhaled Oxygen | - | - | | | Concentration | | | | + + + + + | Weight | 87.1 kg (192 lb) | 04/02/2015 1:40 PM | | | | | PDT | | + + + + + | Height | - | - | | + + + + + | Body Mass Index | 28.35 | 01/01/2015 1:06 PM | | | | | PDT | | + + + + + documented in this encounter Progress Notes Aryan Grossman MD - 04/02/2015 1:58 PM PDTFormatting of this note might be different f rom the original. Subjective: Patient ID: Mani Garcia is a 49 y.o. male. HPI Depression and Anxiety, He is worried all the time about something. 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 Some Fatigue. Moodiness, Some cryin g. Guilt. Denies HI or SI. He took the lexapro in the past but him dizzy. He is doing be tter with the zoloft but wants to up the dose. He is not drinking at this point which is making his anxiety worse. He has not drank for a month. PMH: HTN Hyperlipidemia Alcoholism PSH: Right thumb 2008 Lumbar Diskectomy 1992 Fhx: Mom 64 Ovarian Cancer Dad 50 of MS complications Sister 54, recurrent lymphoma,. First diagnosed with cancer in ' x: Born in [place] , 16 year old son Lives in [place] since 2012, Grew up in [place], [employer] in [place]. [facility] Drinks 5 drinks of whisky per night, poured. Cigarettes 1 ppd Review of Systems Objective: Physical Exam Heent, WNL, No carotid bruit Chest CTAB Heart RR&R /s M Abd S,NT,ND,BS+ Ext, no CCor E Neuro Non-focal Lymph, no cervical, axillary, inguinal adenopathy Musculoskeletal, no gross deformity or loss or range of motion Skin, no gross lesions Assessment: 1. Stress reaction 2. Depression with anxiety Plan: Will increase his zoloft to 150mg daily. RTC 6 weeks. Otherwise continue current medical regimen. documented in this encounter Plan of Treatment Not on filedocumented as of this encounter Visit Diagnoses + + | Diagnosis | + + | Stress reaction - Primary Other acute reactions to stress | + + | Depression with anxiety Dysthymic disorder | + + | Depression Depressive disorder, not elsewhere classified | + + | Prostate cancer (HCC) Malignant neoplasm of prostate | + + documented in this encounter"
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
--- OUTSIDE RECORDS SUMMARY | ~2020-06-06 | XMS | Encounter Summary ---
Demographics + + + | Address | NEED ADDRESS | | | [place] [address] | + + + | Home Phone | | + + + | Preferred Language | Unknown | + + + | Marital Status | Single | + + + | Tenriism Affiliation | Unknown | + + + [...] Hector Garcia | ECON | [place] [address] | | + + + + + Care Team Providers + +------+ + | Care Bucket Hooker Name | Role | Phone | + +------+ + | Aryan Grossman MD | PCP | | + +------+ + Encounter Details +--------+ + + + + | Date | Type | Department | Care Team | Description | +--------+ + + + + | 12/19/ | Hospital | [facility] | Krishna Isaacs | Prostate cancer | | 2015 | Encounter | [facility] | MD Alonso Need updated | ([facility]); Numbness and | | | | [address] [place] | address | tingling; Peripheral | | | | [place], [place] | | neuropathy; History | | | | [address] | | of prostate surgery | | | | [phone] | | | +--------+ + + + [...] + +--------+ + + + | VITAMIN B-12 | Routin | 12/19/2014 | Numbness and | Results for this | | | e | 12:21 PM | tingling Peripheral | procedure are in the | | | | PDT | neuropathy | results section. | + +--------+ + + + | PSA, DIAGNOSTIC | Routin | 12/19/2014 | History of | Results for this | | | e | 12:21 PM | prostate surgery | procedure are in the | | | | PDT | | results section. | + +--------+ + + + | URINALYSIS WITH | Routin | 12/19/2014 | Prostate cancer | Results for this | | MICROSCOPIC IF | e | 11:52 AM | (HCC) | procedure are in the | | INDICATED | | PDT | | results section. | + +--------+ + + + | COPPER, SERUM | Routin | 12/19/2014 | Numbness and | Results for this | | | e | 11:52 AM | tingling Peripheral | procedure are in the | | | | PDT | neuropathy | results section. | + +--------+ + + + | TSH | Routin | 12/19/2014 | Numbness and | Results for this | | | e | 11:52 AM | tingling Peripheral | procedure are in the | | | | PDT | neuropathy | results section. | + +--------+ + + + | RAPID PLASMA REAGIN, | Routin | 12/19/2014 | Numbness and | Results for this | | QUAL | e | 11:51 AM | tingling Peripheral | procedure are in the | | | | PDT | neuropathy | results section. | + +--------+ + + + | PROTEIN | Routin | 12/19/2014 | Numbness and | Results for this | | ELECTROPHORESIS, | e | 11:51 AM | tingling Peripheral | procedure are in the | | SERUM | | PDT | neuropathy | results section. | + +--------+ + + + documented in this encounter Results PSA, Diagnostic (12/19/2014 12:21 PM PDT) + +-------+ + + + | Component | Value | Ref Range | Performed | Pathologist | | | | | At | Signature | + +-------+ + + + | PSA | 0.86 | <=4.00 ng/mL | [facility] | | [...] + | [facility] | [address] | [place] | [phone] | | [facility] | | [address] | | | - LABORATORY | | | | + + + + + Vitamin B-12 (12/19/2014 12:21 PM PDT) + + + + + + | Component | Value | Ref Range | Performed | Pathologist | | | | | At | Signature | + + + + + + | VITAMIN | 329Comment: DEFICIENT: | 180 - 914 pg/mL | [facility] | | | B-12 | <145 | | [facility] | | | | pg/mLINDETERMINATE: | | MEDICAL | | | | 145-180 pg/mL | | CENTER - | | | [...] [address] | [place] | [phone] | | [facility] | | [address] | | | - LABORATORY | | | | + + + + + TSH (12/19/2014 11:52 AM PDT) + + + + + + | Component | Value | Ref Range | Performed | Pathologist | | | | | At | Signature | + + + + + + | TSH | 0.46Comment: All TSH | 0.34 - 5.60 | [facility] | | | | samples are screened | uIU/mL | [facility] | | | | using a 2nd Generation | | MEDICAL | | | | test, and are reflexed | | CENTER - | | | | to a 3rd Generation test | | LABORATORY | | | | if indicated. | | | | + + + + + + + + | Specimen | + + | Blood | + + + + + + + | Performing | Address | City/State/Zipcode | Phone Number | | Organization | | | | + + + + + | [facility] | [address] | [place] | [phone] | | [facility] | | [address] | | | - LABORATORY | | | | + + + + + Copper, Serum (12/19/2014 11:52 AM PDT) + + + + + + | Component | Value | Ref Range | Performed | Pathologist | | | | | At | Signature | + + + + + + | COPPER | 103Comment: There is a | 70 - 140 ug/dL | [facility] | | | | diurnal variation with | | LAB [facility] | | | | highest levels in the | | | | | | morning.Use of | | | | | | noncertified trace | | | | | | element-free collection | | | | | | and/or transporttubes | | | | | | may result in elevated | | | | | | results due to | | | | | | contamination.Testing | | | | | | Performed: [facility], [address] | | | | | [address], [place] | | | | | | [address] | | | | + + + [...] [address] | [place] [address] | [phone] | + + + + + Urinalysis with Microscopic if Indicated (12/19/2014 11:52 AM PDT) + + + + + + | Component | Value | Ref Range | Performed | Pathologist | | | | | At | Signature | + + + + + + | Color, | Yellow | Light Yellow, | [facility] | | | Urine | | Yellow | [facility] | | | | | | MEDICAL | | | | | | CENTER - | | | | | | LABORATORY | | + + + + + + | Clarity, | Clear | Clear | [facility] | | | Urine | | | [facility] | | | | | | MEDICAL | | | | | | CENTER - | | | | | | LABORATORY | | + + + + + + | pH, Urine | 6.0 | 5.0 - 8.0 | [facility] | | | | | | [facility] | | | | | | MEDICAL | | | | | | CENTER - | | | | | | LABORATORY | | + + + + + + | Specific | 1.020 | 1.001 - 1.030 | [facility] | | | [place], | | | [facility] | | | Urine | | | MEDICAL | | | | | | CENTER - | | | | | | LABORATORY | | + + + + + + | Protein, | Negative | Negative | [facility] | | | Urine | | | [facility] | | | | | | MEDICAL | | | | | | CENTER - | | | | | | LABORATORY | | + + + + + + | Blood, | Negative | Negative | [facility] | | | Urine | | | [facility] | | | | | | MEDICAL | | | | | | CENTER - | | | | | | LABORATORY | | + + + + + + | Glucose, | Negative | Negative | [facility] | | | Urine | | | [facility] | | | | | | MEDICAL | | | | | | CENTER - | | | | | | LABORATORY | | + + + + + + | Ketones, | Negative | Negative | [facility] | | | Urine | | | [facility] | | | | | | MEDICAL | | | | | | CENTER - | | | | | | LABORATORY | | + + + + + + | Bilirubin, | Negative | Negative | [facility] | | | Urine | | | [facility] | | | | | | MEDICAL | | | | | | CENTER - | | | | | | LABORATORY | | + + + + + + | Nitrite, | Negative | Negative | [facility] | | | Urine | | | [facility] | | | | | | MEDICAL | | | | | | CENTER - | | | | | | LABORATORY | | + + + + + + | Leukocyte | Negative | Negative | [facility] | | | Esterase, | | | [facility] | | | Urine | | | MEDICAL | | | | | | CENTER - | | | | | | LABORATORY | | + + + + + + | Urobilinoge | 0.2 E.U./dL | 0.2 E.U./dL, | [facility] | | | n, Urine | | 1.0 E.U./dL | [facility] | | | | | | MEDICAL | | | | | | CENTER - | | | | | | LABORATORY | | + + + + + + + + | Specimen | + + | Urine | + + + + + + + | Performing | Address | City/State/Zipcode | Phone Number | | Organization | | | | + + + + + | [facility] | [address] | [place] | [phone] | | [facility] | | [address] | | | - LABORATORY | | | | + + + + + Protein Electrophoresis, Serum (12/19/2014 11:51 AM PDT) + + + + + + | Component | Value | Ref Range | Performed | Pathologist | | | | | At | Signature | + + + + + + | Total | 6.2 | 6.0 - 7.8 g/dL | [facility] | | | Protein | | | [facility] | | | | | | MEDICAL | | | | | | CENTER - | | | | | | LABORATORY | | + + + + + + | ELP Albumin | 4.1 | 3.6 - 5.7 g/dL | [facility] [...] + + | ELP Alpha 2 | 0.6 | 0.4 - 0.9 g/dL | [facility] [...] + + + | ELP Gamma | 0.5 | 0.4 - 1.2 g/dL | [facility] | | | Globulin | | | [facility] | | | | | | MEDICAL | | | | | | CENTER - | | | | | | LABORATORY | | + + + + + + | ELP Albumin | 65.8 | % | [facility] | | | [...] + + | ELP Alpha 1 | 2.7 | % | [facility] | | | Globulin % | | | [facility] | | | | | | MEDICAL | | | | | | CENTER - | | | | | | LABORATORY | | + + + + + + | ELP Alpha 2 | 10.4 | % | [facility] | | | Globulin % | | | [facility] | | | | | | MEDICAL | | | | | | CENTER - | | | | | | LABORATORY | | + + + + + + | ELP Beta 1 | 7.2 | % | [facility] | | | Globulin % | | | [facility] | | | | | | MEDICAL | | | | | | CENTER - | | | | | | LABORATORY | | + + + + + + | ELP Beta 2 | 5.3 | % | [facility] | | | Globulin % | | | [facility] | | | | | | MEDICAL | | | | | | CENTER - | | | | | | LABORATORY | | + + + + + + | ELP Gamma | 8.6 | % | [facility] | | | Globulin % | | | [facility] | | | | | | MEDICAL | | | | | | CENTER - | | | | | | LABORATORY | | + + + + + + | Interpretat | See scanned report. | | [facility] | | | ion | Pathologist | | [facility] | | | | comment:Normal | | MEDICAL | | | | Saul Santiago | | CENTER - | | | | MD Ray 2014.12.20 | | LABORATORY | | | | | | | [...] [address] | [place] | [phone] | | [facility] | | [address] | | | - LABORATORY | | | | + + + + + Rapid Plasma Jacob Duckworth (12/19/2014 11:51 AM PDT) + + + + + + | Component | Value | Ref Range | Performed | Pathologist | | | | | At | Signature | + + + + + + | Treponema | Non-Reactive | Non-Reactive | [facility] | | | Pallidum | | | [facility] | | | Ab, Qual | | | MEDICAL | | | [...] [address] | [place] | [phone] | | [facility] | | [address] | | | - LABORATORY | | | | + + + + + documented in this encounter Visit Diagnoses + + | Diagnosis | + + | Prostate cancer (HCC) Malignant neoplasm of prostate | + + | Numbness and tingling Disturbance of skin sensation | + + | Peripheral neuropathy Unspecified hereditary and idiopathic peripheral neuropathy | + + | History of prostate surgery | + + documented in this encounter"
--- OUTSIDE RECORDS SUMMARY | ~2020-06-06 | XMS | Encounter Summary ---
Demographics + + + | Address | NEED ADDRESS | | | [place] [address] | + + + | Home Phone | | + + + | Preferred Language | Unknown | + + + | Marital Status | Single | + + + | Sikh Affiliation | Unknown | + + + [...] Hector Garcia | ECON | [place] [address] | | + + + + + Care Team Providers + +------+ + | Care Adult And Pediatric Neurologist Name | Role | Phone | + +------+ + | Loi Frausto PA-C | PCP | | + +------+ + Reason for Visit + +--------+ + | Reason | Onset | Comments | | | Date | | + +--------+ + | Appointment | 11/01/ | | | | 2020 | | + +--------+ + Encounter Details +--------+ + + + + | Date | Type | Department | Care Team | Description | +--------+ + + + + | 11/01/ | Telephone | [facility] | Zeeshan Hawkins, | Appointment | | 2020 | | [address] | MD [address] | | | | | [place] | [place] | | | | | [address] | [address] | | | | | [phone] | | | +--------+ + + + [...] this encounter Miscellaneous Notes Telephone Encounter - Lina Schmitt CMA - 11/02/2019 10:37 AM [employer] call back message. Reason for call is regarding patients upcoming appointment on 11/07/2019 with PSA and CMP pr ior. Patient notified. doc umented in this encounter Plan of Treatment Not on filedocumented as of this encounter Visit Diagnoses Not on filedocumented in this encounter"
--- OUTSIDE RECORDS SUMMARY | ~2020-06-06 | XMS | Encounter Summary ---
Demographics + + + | Address | NEED ADDRESS | | | [place] [address] | + + + | Home Phone [...] + | Hector Garcia | ECON | [place] [address] | | + + + + + Care Team Providers + +------+ + | Care Conference Services Coordinator Name | Role | Phone | + [...] [place] | | | | | | [place] Bone Scan | [address] | | | | | | Whole Body | Phone: | | | | | | | [phone] | | | | | | | Fax: | | | | | | | [phone] | | +--------+--------+ + + + + [...] | | | | (HCC) | [place], | | | | | | Procedures | [place] | | | | | | [place] Bone Scan | [address] | | | | | | Whole Body | Phone: | | | | | | | [phone] | | | | | | | Fax: | | | | | | | [phone] | | +--------+--------+ + + + + Encounter Details +--------+ + + + + | Date | Type | Department | Care Team | Description | +--------+ + + + + | 07/18/ | Hospital | [facility] | Columba Kohli | Malignant neoplasm | | 2013 | Encounter | [facility] | MD [address] | of prostate (HCC) | | | | MEDICINE [address] [place], [place] | | | | | [place], | [address] | | | | | [place] [address] | [phone] | | | | | [phone] | | | +--------+ + + + [...] NM BONE SCAN WHOLE | Routin | 07/18/2014 | Malignant neoplasm | Results for this | | BODY | e | 12:37 PM | of prostate (HCC) | procedure are in the | | | | PDT | | results section. | + +--------+ + + + documented in this encounter Results NM Bone Scan Whole Body (07/18/2014 12:37 PM PDT) + + | Specimen | + + | | + + + + + | Narrative | Performed At | + + + | WHOLE BODY BONE SCAN 07/18/2014 9:10 AM CLINICAL HISTORY: | MISCELANIOUS | | PROSTATE CA COMPARISON: BONE SCAN FEBRUARY 21, 2014, CT CHEST, ABDOMEN | LAB | | AND PELVIS JULY 18, 2014 TECHNIQUE: 3 hours following the | | | uneventful administration of 27.2 mCi [id number] MDP, whole body planar | | | scintigraphy is performed in anterior and posterior projections. | | | FINDINGS: There is uptake of radiotracer by both kidneys and | | | excretion into the urinary bladder. Focally increased | | | radiotracer activity within/along the medial margin of the right | | | acetabulum is now visible on the frontal image only, and no correlate | | | for this activity is visible on the CT images obtained the same day. | | | Symmetrically increased activity is again visible at the level of | | | the acromioclavicular, glenohumeral and sternoclavicular joints, | | | consistent with degenerative uptake. There is stable focal | | | increased radiotracer activity at the level of the left first | | | sternocostal junction. Focal, mildly increased uptake is again | | | visible at the level of the right patella and is likely degenerative, | | | along with increased activity along the radial aspects of the imaged | | | wrists. There is persistent increased radiotracer uptake at the | | | level of the mandible and maxilla, which now appears more asymmetric, | | | with predominant right maxillary and left mandibular activity noted | | | presently. No other abnormal radiotracer accumulation is evident. | | | IMPRESSION - 1. NEW FOCAL RADIOTRACER ACTIVITY WITHIN/ ALONG | | | THE MEDIAL MARGIN OF THE RIGHT ACETABULUM. NO CORRESPONDING OSSEOUS | | | ABNORMALITY OR BLADDER DIVERTICULUM IS VISIBLE ON CT IMAGES ACQUIRED | | | THE SAME DAY, HOWEVER METASTATIC DISEASE CANNOT BE EXCLUDED. NO | | | OTHER SUSPICIOUS RADIOTRACER ACCUMULATION IS EVIDENT. 2. STABLE | | | PERIARTICULAR ACTIVITY DESCRIBED, LIKELY DEGENERATIVE. ACTIVITY | | | AT THE LEFT FIRST STERNOCOSTAL JUNCTION IS SIMILAR IN APPEARANCE AND | | | MAY BE DEGENERATIVE OR POST-TRAUMATIC. 3. PERSISTENT BUT MORE | | | ASYMMETRIC MAXILLARY AND MANDIBULAR ACTIVITY, FAVORING DENTAL | | | DISEASE. Dictated and Signed by: Ranjith Saini MD | | | Electronically signed: 07/18/2014 1:52 PM | | + + + + + | Procedure Note | + + | Frank, Rad Results In - 07/18/2014 1:55 PM PDT WHOLE BODY BONE SCAN 07/18/2014 9:10 | | AMCLINICAL HISTORY: PROSTATE CACOMPARISON: BONE SCAN FEBRUARY 21, 2014, CT CHEST, ABDOMEN AND | | PELVIS JuneTECHNIQUE: 3 hours following the uneventful administration of | | 27.2 mCi [id number], whole body planar scintigraphy is performed in anterior and | | posteriorprojections. FINDINGS: There is uptake of radiotracer by both kidneys and | | excretion into theurinary bladder. Focally increased radiotracer activity | | within/along themedial margin of the right acetabulum is now visible on the frontal | | image only,and no correlate for this activity is visible on the CT images obtained the | | sameday. Symmetrically increased activity is again visible at the level of | | theacromioclavicular, glenohumeral and sternoclavicular joints, consistent | | withdegenerative uptake. There is stable focal increased radiotracer activity atthe | | level of the left first sternocostal junction. Focal, mildly increaseduptake is again | | visible at the level of the right patella and is likelydegenerative, along with | | increased activity along the radial aspects of theimaged wrists. There is persistent | | increased radiotracer uptake at the level ofthe mandible and maxilla, which now appears | | more asymmetric, with predominantright maxillary and left mandibular activity noted | | presently. No other abnormalradiotracer accumulation is evident.IMPRESSION -1. NEW | | FOCAL RADIOTRACER ACTIVITY WITHIN/ ALONG THE MEDIAL MARGIN OF THE RIGHTACETABULUM. NO | | CORRESPONDING OSSEOUS ABNORMALITY OR BLADDER DIVERTICULUM ISVISIBLE ON CT IMAGES | | ACQUIRED THE SAME DAY, HOWEVER METASTATIC DISEASE CANNOT BEEXCLUDED. NO OTHER | | SUSPICIOUS RADIOTRACER ACCUMULATION IS EVIDENT.2. STABLE PERIARTICULAR ACTIVITY | | DESCRIBED, LIKELY DEGENERATIVE. ACTIVITYAT THE LEFT FIRST STERNOCOSTAL JUNCTION IS | | SIMILAR IN APPEARANCE AND MAY BEDEGENERATIVE OR POST-TRAUMATIC.3. PERSISTENT BUT MORE | | ASYMMETRIC MAXILLARY AND MANDIBULAR ACTIVITY, FAVORINGDENTAL DISEASE.Dictated and Signed | | by: Ranjith Saini MD Electronically signed: 07/18/2014 1:52 PM | | | |IMPRESSION - | |1. NEW FOCAL RADIOTRACER ACTIVITY WITHIN/ ALONG THE MEDIAL MARGIN OF THE RIGHT | |ACETABULUM. NO CORRESPONDING OSSEOUS ABNORMALITY OR BLADDER DIVERTICULUM IS | |VISIBLE ON CT IMAGES ACQUIRED THE SAME DAY, HOWEVER METASTATIC DISEASE CANNOT BE | |EXCLUDED. NO OTHER SUSPICIOUS RADIOTRACER ACCUMULATION IS EVIDENT. | | | |2. STABLE PERIARTICULAR ACTIVITY DESCRIBED, LIKELY DEGENERATIVE. ACTIVITY | |AT THE LEFT FIRST STERNOCOSTAL JUNCTION IS SIMILAR IN APPEARANCE AND MAY BE | |DEGENERATIVE OR POST-TRAUMATIC. | | | |3. PERSISTENT BUT MORE ASYMMETRIC MAXILLARY AND MANDIBULAR ACTIVITY, FAVORING | |DENTAL DISEASE. | | | |Dictated and Signed by: Ranjith Saini MD | | Electronically signed: 07/18/2014 1:52 PM | + + + +---------+ + + | Performing | Address | City/State/[place] [facility] | Phone Number | | Organization | | | | + +---------+ + + | MISCELLANEOUS LAB | | | [phone] | + +---------+ + + | MISCELANIOUS LAB | | | [phone] | + +---------+ + + documented in [...] | technetium TC-99M medronate | Given | 07/18/20 | 25 | | | | (MDP) injection 25 millicurie 25 | | 14 9:11 | -millicu | | | | -millicurie, Intravenous, ONCE | | AM PDT | que | | | | PRN, Other, Starting [place] 07/18/14 | | | | | | | at 0911, For 1 dose, Nuclear | | | | | | | Medicine | | | | | | + +--------+ + +------+------+ +---+---+ | | | +---+---+ documented in this encounter"
--- OUTSIDE RECORDS SUMMARY | ~2020-06-06 | XMS | Encounter Summary ---
Demographics + + + | Address | NEED ADDRESS | | | [place] [address] | + + + | Home Phone | | + + + | Preferred Language | Unknown | + + + | Marital Status | Single | + + + | Adventism Affiliation | Unknown | + + + | Race | White | + + + | Ethnic Group | Not or | + + + Author + + + | Author | [facility] | | | and [place] | + + + | Organization | [facility] | | | [...] Hector Garcia | ECON | [place] [address] | | + + + + + Care Team Providers + +------+ + | Care Curatorial Assistant Name | Role | Phone | + +------+ + PCP | Unavailable | + +------+ + Encounter Details +--------+ + + + + | Date | Type | Department | Care Team | Description | +--------+ + + + + | 02/04/ | Hospital | [facility] | Unknown, | | | 1993 | Encounter | MED CTR XRAY [address] | [address] . | | | | | [place] | | | | | | [place] [address] | (Fax) | | | | | [phone] | | | +--------+ + + + [...]
--- OUTSIDE RECORDS SUMMARY | ~2020-06-06 | XMS | Encounter Summary ---
Demographics + + + | Address | [address] | | | [place] [facility] [address] | + + + | Home Phone | | + + + | Preferred Language | Unknown | + + + | Marital Status | Single | + + + | Mormon Affiliation | CHR | + + + | Race | White | + + + | Ethnic Group | Not or | + + + Author + + + | Author | [facility] | + + + | Organization | [facility] | + + + | Address | Unknown | + + + | Phone | Unavailable | + + + Support + + +---------+ + | Name | Relationship | Address | Phone | + + +---------+ + | Servando Boyer | ECON | Unknown | | + + +---------+ + Care Team Providers + +------+ + | Care Primer Waterproofing Machine Operator Name | Role | Phone | + +------+ + | Aryan Grossman MD | PCP | | + +------+ + Reason for Visit +---------+ + | Reason | Comments | +---------+ + | Post Op | | +---------+ + Global Period - Transplant (Routine) +--------+--------+ + + + + | Status | Reason | Specialty | Diagnoses / | Referred By | Referred To | | | | | Procedures | Contact | Contact | +--------+--------+ + + + + | Closed | | Urology | Diagnoses | Seun, | Seun | | | | | NINO 08/01/14 | MD Columba | MD Columba | | | | | has a [address] | [address] | | | | | day global | St [place], | [place], [place] | | | | | period | [place] [address] | [address] Phone: | | | | | | Phone: | [phone] | | | | | | [phone] | Fax: | | | | | | Fax: | [phone] | | | | | | [phone] | | +--------+--------+ + + + + Encounter Details +--------+---------+ + + + | Date | Type | Department | Care Team | Description | +--------+---------+ + + + | 10/01/ | Office | Urology at [facility] | Columba Kohli, | Prostate cancer | | 2015 | Visit | [address] | [address] | (HCC) (Primary Dx) | | | | Mailcode: CH10U | [place] [address] | | | | | [facility]ta for [facility] | [phone] | | | | | and Healing, | | | | | | Building | | | | | | Floor [place], [place] | | | | | | [address] | | | | | | [phone] | | | +--------+---------+ + + + [...] + + + | Blood Pressure | 142/98 | 10/01/2014 1:53 PM | | | | | PST | | + + + + + | Pulse | 87 | 10/01/2014 1:53 PM | | | | | PST [...] Weight | 91.2 kg (201 lb) | 10/01/2014 1:53 PM | | | | | PST | | + + + + + | Height | - | - | | + + + + + | Body Mass Index | 29.67 | 08/01/2014 8:19 AM | | | | | PST | | + + + + + documented in this encounter Progress Notes Mathew Mora MD - 10/01/2014 2:20 PM PSTFormatting of this note might be different f rom the original. UROLOGIC ONCOLOGY CLINIC- FOLLOW-UP Identification: Mani Garcia is a 49 y.o. male with a history of [place] 4+3 [id number] prostate cancer wh o underwent RRP with bilateral PLND on 08/01/14. He tolerated the procedure well and was disc harged home on post-op day 3 at which time he was tolerating a regular diet, had good pain c ontrol on oral medications, and was ambulating without difficulty. Catheter was removed post operative day#12. Surgery: RRP with bilateral PLND on 08/01/14 Path: [place]roy 4+3 [id number], small positive anterior margin Subjective: Doing well. Pain well controlled. Minimal incontinence noted with flatus, otherwise no leak with straining. Working on kegels . Not requiring any pads. A couple of leaking episodes with EtOH. No erectile function now, no spontaneous erections. Reports adequate erections for renéeterluana gil prior to surgery. Interested in therapy as he has a significant other in [place]. ROS: Denies bone pain, chest pain, shortness of breath, weight loss, fatigue, or significan t pain. Current Outpatient Prescriptions Medication Sig aspirin EC 81 mg oral tablet,delayed release (DR/EC) Take by mouth. lisinopril 10 mg oral tablet Take 10 mg by mouth once daily. Indications: HYPERTENSION naproxen 500 mg oral tablet Take 500 mg by mouth two times daily. oxyCODONE, immediate release, 5 mg oral tablet Take 1 tablet by mouth every four hours as needed for moderate pain. senna-docusate (SENNA-S) 8.6-50 mg oral tablet Take 1 tablet by mouth two times daily. sertraline 50 mg oral tablet Take 50 mg by mouth once daily. No current facility-administered medications for this visit. GEN: NAD AAOx3 CV: RRR PULM: Normal insp effort ABD: Soft NTND No CVAT, inicision well healed Ext: WWP Labs: No visits with results within 2 Week(s) from this visit. Latest known visit with results is: Admission on 08/01/2014, Discharged on 08/04/2014 Component Date Value SURGICAL PATHOLOGY 08/01/2014 Value:SOURCE OF SPECIMEN:A Right pelvic lymph node SOURCE OF SPECIMEN:B Left pelvic lymph node SOURCE OF SPECIMEN:C Prostate Final Pathologic Diagnosis: A: Right pelvic lymph nodes, dissection: - Four lymph nodes, negative for malignancy (0/4) B: Left pelvic lymph nodes, dissection: - Six lymph nodes, negative for malignancy (0/6) C: Prostate, prostatectomy: - Prostatic adenocarcinoma, [place] grade 4 + 3 = 7, involving bilateral lobes and seminal vesicles. bladder base, and apex - Single minute microscopic focus of carcinoma present at the l eft anterior inked margin (block #C9), other margins are neg ative for tumor - Extraprostatic extension present - [...] Grade: 4 Secondary Pattern Grade: 3 Total Elroy Score: 7 Tumor Quantitation: Percent of prostate [...] is a 49-year-old male with prostate cancer. Gross Description: Received are 3 specimens fresh in containers labeled with the patien t's name (initials DF) and: A: Right pelvic lymph node: Received are multiple yellow, soft tis aylin measuring 3.5 x 3.4 x 2.5 cm in aggregate. Four possible lymph node s are identified. The lymph nodes range from 0.4 cm to 3.5 cm. All possi ble lymph nodes are submitted. Keymodule Assembly Machine Tender sections are submitted. B: Left pelvic lymph node: Received are 2 oriented, soft, yellow t issues, measuring 4.7 x 3.7 x 1.8 cm in aggregate. Six possible lymph nodes are identified. The lymph nodes range in size from 0.3 cm to 5.6 cm. A ll possible lymph nodes are submitted. Keym[employer] Machine Tender sections are sub mitted. C: Prostate: Weight: 44.7 grams Size: 4 (SI) x 4 (RL) x 3.5 (AP) cm Anterior staple line: 2 cm in length Inking scheme: Right anterior inked green, left anterior inked blue, posterior inked black Exterior surface: Roughened Right vas: 3 (L) x 0.5 (D) cm Left vas: 2.4 (L) x 0.5 (D) cm Right seminal vesicle: 3.5 x 1.6 x 0.8 cm Left seminal vesicle: 3 x 1.8 x 0.7 cm Lesion: Size: 3 x 2.5 x 2 cm Color: Yellow, indurated Shape: Ill-defined Location: Involving bilateral lobe Remaining parenchyma: Unremarkable The bladder base/proximal urethra and apical/distal urethra margins are removed en face, then radially sectioned and entirely submitted. Va s margins are entirely submitted. Keymodule Assembly Machine Tender sections of the sabina ining tissue are submitted. The specimen is sampled for BioMark[employer] and BioLibrary and approximately 50% of the prostate is submitted for histology. Cassette Index: A: Right pelvic lymph node: A1-2, one possible lymph node, quadrisected A3, three possible lymph nodes B: Left pelvic lymph node: B1-2, one possible lymph nodes, quadrisected B3, five possible lymph nodes C: Prostate: C1, entire bladder base/proximal urethral margin, en face C2, entire apical/distal urethral margin, en face C3, right vas margin, en face, longitudinal section seminal vesicle into prostate C4, left vas margin, en face, longitudinal section seminal vesicle i nto prostate C5-6, left base C7-8, left mid C9-10, left apex C11-12, right base C13-14, right mid C15-16, right apex YW/yaya My electronic signature indicates that I have personally reviewed al l diagnostic slides, the gross and/or microscopic portion of this report and formulated the final diagnosis. Rendering Diagnostician: Donavan Velazquez M.D. Pathologist Electronically Signed 08/09/2014 11:40AM GLUCOSE, PLASMA (LAB) 08/02/2014 87 BUN, PLASMA (LAB) 08/02/2014 15 CREATININE PLASMA (LAB) 08/02/2014 0.91 EGFR - SAO TOMEAN 08/02/2014 >60 EGFR NON -SAO TOMEAN 08/02/2014 >60 SODIUM, PLASMA (LAB) 08/02/2014 137 POTASSIUM, PLASMA (LAB) 08/02/2014 4.0 CHLORIDE, PLASMA (LAB) 08/02/2014 105 TOTAL CO2, PLASMA (LAB) 08/02/2014 26 CALCIUM, PLASMA (LAB) 08/02/2014 8.1* ANION GAP 08/02/2014 6 POTASSIUM CMNT 08/02/2014 No Hemo MAGNESIUM,PLASMA 08/02/2014 1.3* PHOSPHORUS, PLASMA (LAB) 08/02/2014 2.7 WHITE CELL COUNT 08/02/2014 8.22 RED CELL COUNT 08/02/2014 3.13* HEMOGLOBIN 08/02/2014 10.7* HEMATOCRIT 08/02/2014 31.5* MCV 08/02/2014 100.6* MCHC 08/02/2014 34.0 RDW SD 08/02/2014 47.7* PLATELET COUNT 08/02/2014 220 MPV 08/02/2014 9.4* NRBC% 08/02/2014 0.0 NRBC# 08/02/2014 0.00 BLOOD GLUCOSE, POC 08/02/2014 79 GLUCOSE, PLASMA (LAB) 08/03/2014 90 BUN, PLASMA (LAB) 08/03/2014 11 CREATININE PLASMA (LAB) 08/03/2014 0.99 EGFR - SAO TOMEAN 08/03/2014 >60 EGFR NON -SAO TOMEAN 08/03/2014 >60 SODIUM, PLASMA (LAB) 08/03/2014 138 POTASSIUM, PLASMA (LAB) 08/03/2014 4.0 CHLORIDE, PLASMA (LAB) 08/03/2014 106 TOTAL CO2, PLASMA (LAB) 08/03/2014 27 CALCIUM, PLASMA (LAB) 08/03/2014 8.2* ANION GAP 08/03/2014 5 POTASSIUM CMNT 08/03/2014 No Hemo MAGNESIUM,PLASMA 08/03/2014 1.7* PHOSPHORUS, PLASMA (LAB) 08/03/2014 3.0 WHITE CELL COUNT 08/03/2014 9.35 RED CELL COUNT 08/03/2014 2.94* HEMOGLOBIN 08/03/2014 10.5* HEMATOCRIT 08/03/2014 30.0* MCV 08/03/2014 102.0* MCHC 08/03/2014 35.0 RDW SD 08/03/2014 47.2* PLATELET COUNT 08/03/2014 202 MPV 08/03/2014 9.5* NRBC% 08/03/2014 0.0 NRBC# 08/03/2014 0.00 GLUCOSE, PLASMA (LAB) 08/04/2014 86 BUN, PLASMA (LAB) 08/04/2014 11 CREATININE PLASMA (LAB) 08/04/2014 0.87 EGFR - SAO TOMEAN 08/04/2014 >60 EGFR NON -SAO TOMEAN 08/04/2014 >60 SODIUM, PLASMA (LAB) 08/04/2014 139 POTASSIUM, PLASMA (LAB) 08/04/2014 4.3 CHLORIDE, PLASMA (LAB) 08/04/2014 107 TOTAL CO2, PLASMA (LAB) 08/04/2014 26 CALCIUM, PLASMA (LAB) 08/04/2014 8.3* ANION GAP 08/04/2014 6 POTASSIUM CMNT 08/04/2014 No Hemo MAGNESIUM,PLASMA 08/04/2014 1.6* PHOSPHORUS, PLASMA (LAB) 08/04/2014 4.0 WHITE CELL COUNT 08/04/2014 6.77 RED CELL COUNT 08/04/2014 2.86* HEMOGLOBIN 08/04/2014 9.9* HEMATOCRIT 08/04/2014 28.9* MCV 08/04/2014 101.0* MCHC 08/04/2014 34.3 RDW SD 08/04/2014 46.4* PLATELET COUNT 08/04/2014 200 MPV 08/04/2014 9.6* NRBC% 08/04/2014 0.0 NRBC# 08/04/2014 0.00 Last 5 PSAs: Lab Results Lab Test Name Results Date/Time PSA 22.07 07/09/14 No results found for this basename: urcolorpoc, urappearpoc, urinelepoc, urnitritepoc, urur obilipoc, urineprotein, urineph, urbloodpoc, urspecgrav, urketonespoc, urinebilipoc, urinegl ucose A/P: Mani Garcia is a 49 y.o. male with a history of [place] 4+3 [id number] prostate cancer wh o underwent RRP with bilateral PLND on 08/01/14, doing well. - Continue saritha Koch for penile rehab, PARQ held regarding ED management - FU PSA today, will call with results - RTC in 3 mos with PSA This patient was seen with and plan formulated with Dr Seun Mora MD Urology PGY-2 Pager: [phone] I saw and evaluated this patient with the resident, Dr. Mora. I discussed the patient with the resident and agree with the findings and plan as documented in the note. COLUMBA KOHLI MD UROLOGY ONCOLOGY [address] Mail Code: [id number] [facility], [address] [facility] [id number] documented in this en counter Plan of Treatment Not on filedocumented as of this encounter Visit Diagnoses + + | Diagnosis | + + | Prostate cancer (HCC) - Primary Malignant neoplasm of prostate | + + documented in this encounter"
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
--- OUTSIDE RECORDS SUMMARY | ~2020-06-06 | XMS | Encounter Summary ---
Demographics + + + | Address | NEED ADDRESS | | | [place] [address] | + + + | Home Phone [...] Hector Garcia | ECON | [place] [address] | | + + + + + Care Team Providers + +------+ + | Care Chief Medical Director Name | Role | Phone | + +------+ + | Aryan Grossman MD | PCP | | + +------+ + Reason for Visit + + + | Reason | Comments | + + + | Prostate Cancer | | + + + Encounter Details +--------+---------+ + + + | Date | Type | Department | Care Team | Description | +--------+---------+ + + + | 06/20/ | Office | [facility] | Zeeshan Hawkins, | Prostate cancer | | 2013 | Visit | [address] | MD [address] | ([facility]) (Primary Dx); | | | | RONNY Torres | [place] | Elevated PSA | | | | [id number] | [id number] | | | | | [phone] | | | +--------+---------+ + + + [...] + + + | Blood Pressure | 112/70 | 06/20/2014 2:05 PM | | | | | PDT | | + + + + + | Pulse | 78 | 06/20/2014 2:05 PM | | | | | PDT | | + + + + + | Temperature | - | - | | + + + + + | Respiratory Rate | 16 | 06/20/2014 2:05 PM | | | | | PDT | | + + + + + | Oxygen Saturation | - | - | | + + + + + | Inhaled Oxygen | - | - | | | Concentration | | | | + + + + + | Weight | 92.5 kg (204 lb) | 06/20/2014 2:05 PM | | | | | PDT | | + + + + + | Height | 175.3 cm (5' 9") | 06/20/2014 2:05 PM | | | | | PDT | | + + + + + | Body Mass Index | 30.13 | 06/20/2014 2:05 PM | | | | | PDT | | + + + + + documented in this encounter Progress Notes Zeeshan Hawkins MD - 06/20/2014 2:08 PM PDTFormatting of this note might be different fro m the original. Mani is a 49 y.o. male patient of Aryan Grossman being seen today to discuss treatment options for prostate cancer. Mani has history of abnormal PSA and severe obstructive voiding symptoms. His AUA sympto m score was 28. He was found to have a diffusely firm and indurated prostate gland. PSA on 11/30/2013 was 75 .46. His PCP ordered a followup PSA on 02/19/2014, and it was 86.19, but this was only 6 day s after his prostate biopsy. He underwent a prostate biopsy on 02/13/2014. He is found to have a prostate gland volume o f 47 cc. Seminal vesicles did not appear to be enlarged. However, this prostate gland was diffusely hypoechoic and suspicious in appearance. His prostate biopsy demonstrated Eolia score 4+3 = 7/10 in all biopsies from the prostate gland, except for Elroy score 3+4 = 7/10 at the right apex. Tumor was present in all cor es, in 90-95% of each core. Perineural invasion was present only at the right lateral mid b iopsy and the right apex biopsy. Mani subsequently moved to [place] shortly after his diagnosis of prostate cancer. He wa s not treated locally. He saw a urologist Dr. Brian Hodgson, in [place], [place], who apparently recommended radiation the rapy. Mani did not have insurance at that time, so he elected hormone suppression therapy . He did not receive LHRH agonist therapy due to its cost, and so he has been taking Casode x 50 mg by mouth daily since that time. His living arrangement in [place] did not work well for him, so he moved back to [place], [place] recently. He states his voiding symptoms have improved. He denies any dysuria or hematuria. He jason es any urinary tract infections. He has sensation of incomplete bladder emptying. He denie s any urinary incontinence. He denies any back pain or renal colic. He denies any fever or chills or nausea or vomitin g. He does have depression. Otherwise, 10 point review of systems today is negative. He has never previously had abdominal surgery. I spent in excess of 45 minutes with Mani today, over 50% of this time spent counseling r egarding prostate cancer and treatment options for prostate cancer. We discussed that he ap pears to have high-risk disease, for which cure rates will be much lower. Past Medical History He has a past medical history of Hypertension; GERD (gastroesophageal reflux disease); Stro ke ([facility]); Hyperlipemia; Alcoholism (HCC); Elevated PSA; Nicotine addiction; Alopecia; Depres xavier; and Cancer ([facility]) (11/24/2013). Past Surgical History He has past surgical history that includes back surgery (1992) and orthopedic surgery (2007 ). Family History: His family history includes Cancer in his mother; Cancer (age of onset:40) in his sister; a nd Multiple Sclerosis in his father. There is no history of Prostate cancer. Social History: He reports that he has been smoking. He has never used smokeless tobacco. He reports that he drinks alcohol. He reports that he does not use illicit drugs. No Known Allergies Medications: Outpatient Encounter Prescriptions as of 06/20/2014 Medication Sig Dispense Refill aspirin (ASPIRIN ADULT LOW STRENGTH) 81 MG EC tablet Take 1 tablet by mouth Daily. 90 tablet 3 bicalutamide (CASODEX) 50 mg tablet Take 50 mg by mouth Daily. escitalopram (LEXAPRO) 10 mg tablet Take 1 tablet by mouth Daily. 90 tablet 0 ketoconazole (NIZORAL) 2% cream Apply to scalp area daily to twice daily for up to 3 we eks 30 g 1 lisinopril (PRINIVIL, ZESTRIL) 10 mg tablet Take 1 tablet by mouth Daily. 90 tablet 0 naproxen (NAPROSYN) 500 mg tablet Take 1 tablet by mouth 2 times daily (with breakfast & dinner). 30 tablet 0 naproxen (NAPROSYN) 500 mg tablet Take 1 tablet by mouth 2 times daily (with breakfast & dinner). 60 tablet 2 sertraline (ZOLOFT) 25 mg tablet One po qd for two weeks then two po qd thereafter. 60 tablet 2 PHYSICAL EXAM Vitals: BP 112/70 | Pulse 78 | Resp 16 | Ht 1.753 m (5' 9") | Wt 92.534 kg (204 lb) | BMI 3 0.11 kg/m2 General: Awake, alert, in no acute distress. Speech is fluent. Appears to be stated age. Neck: Supple; no lymphadenopathy. Lungs: Normal respiratory effort, no wheezing, no stridor, no tachypnea. Chest: No rib or bony tenderness. Back: No CVA tenderness. Abdomen: Soft, nontender, no hepatosplenomegaly. No masses. No guarding; benign. Bladder nondistended. Extremities: Non-edematous. Hips and long bones nontender to fist percussion. Neuro: Awake, alert, oriented x3. Normal station and gait. Psychiatric: Mood and affect are normal. Normal judgment. Skin: Warm and dry, no erythematous rash. Groin: No mass. No lymphadenopathy. DIAGNOSTIC DATA: Lab Results Component Value Date PSA 20.94* 05/31/2014 PSA 86.19* 02/19/2014 PSA 75.46* 11/30/2013 Lab Results Component Value Date ALT 29 05/31/2014 AST 26 05/31/2014 ALKPHOS 85 05/31/2014 BILITOT 0.8 05/31/2014 Lab Results Component Value Date CREA 0.79 05/31/2014 BUN 13 05/31/2014 NA 135* 05/31/2014 K 4.0 05/31/2014 CL 103 05/31/2014 CO2 25 05/31/2014 Lab Results Component Value Date WBC 11.2* 05/31/2014 HGB 16.4 05/31/2014 HCT 48.0 05/31/2014 MCV 102.4* 05/31/2014 PLT 327 05/31/2014 NM BONE SCAN WHOLE BODY 02/21/2014 9:23 AM HISTORY:?Prostate cancer. COMPARISON: CT scan of the abdomen and pelvis dated 02/21/2014. PROTOCOL: Approximately three hours after injection of 26.3 mCi technetium 99m MDP, whole body images were obtained in anterior and posterior projections. FINDINGS: There is normal distribution of activity within the skeleton with no evidence for metastatic disease. Mildly increased uptake is visualized of the mandible and maxilla possibly due to dental caries. Mildly increased uptake is visualized of the bilateral shoulders, wrists, right knee, and right ankle that are most likely due to degenerative change. Mildly increased uptake is seen in the anterior aspects of left ribs 1 and 3 that could be due to degenerative change. Normal activity is visualized within the kidneys and bladder. IMPRESSION - NO EVIDENCE FOR OSSEOUS METASTATIC DISEASE. Dictated and Signed by: Horace Galvez MD Electronically signed: 02/21/2014 1:08 PM EXAM: CT ABDOMEN PELVIS W CONTRAST dated 02/21/2014 10:12 AM HISTORY:Prostate cancer Comparison: None. TECHNIQUE: Imaging is performed from the lung bases through the pubic symphysis with oral contrast and following the uneventful intravenous administration of 100 mL Omnipaque 350. DOSE: DLP 512.60 mGy-cm FINDINGS: LUNG BASES: The lung bases are clear. There is no visible pleural effusion or pneumothorax. There is no significant pericardial thickening. LIVER: The liver is unremarkable in attenuation and enhancement. There is a 6 mm hypodensity in the left lobe of the liver. GALLBLADDER: The gallbladder is not distended. There are no calcified cholelithiasis. No visible biliary ductal dilatation. SPLEEN: The spleen is unremarkable. There is no splenomegaly. PANCREAS: The pancreas is unremarkable. The pancreatic duct is not dilated. ADRENALS: There is a small 1 x 0.6 cm nodule involving the right adrenal gland. KIDNEYS: The kidneys are symmetrically enhancing. There are no focal renal lesions. There is no nephrolithiasis. There is no obstructive uropathy. BOWEL: There is no evidence for gastrointestinal tract obstruction. There is no evidence for appendicitis. There is diverticulosis which predominates in the sigmoid colon. There is no evidence for active diverticulitis. VASCULATURE AND LYMPH NODES: There is no aneurysmal dilatation of the abdominal aorta. The major venous structures are patent and unremarkable. There is no pelvic or abdominal lymphadenopathy. BLADDER: The bladder is unremarkable. The prostate is not significantly enlarged. BONES: Disc collapse at L4-L5. No compression deformities. Degenerative retrolisthesis of L4 on L5 and a 5 on S1. There are no lytic or blastic bone lesions. Posttraumatic irregularity of the right iliac crest. OTHER: There is no free fluid. There is no free air. IMPRESSION - No CT evidence for metastatic prostate cancer. Mild diverticulosis. 1 cm right adrenal nodule. This is nonspecific. If this is an unknown finding consider additional evaluation. Nonspecific 6 mm hypodensity in the liver. This most commonly would represent a small cyst. Dictated and Signed by: Antonio Waite MD Electronically signed: 02/21/2014 11:28 AM IMPRESSION: 1. Clinical stage T2c, Nx, Mx Eolia score 7 adenocarcinoma of the prostate. He is at hi gh risk for extraprostatic disease. CT imaging and bone scan are essentially negative for m etastatic disease. 2. Abnormal PSA. PSA has declined to 20.94 on 05/31/2014 from 86.19 on 02/19/2014. 3. Obstructive voiding symptoms. Improved. Prior AUA symptom score was 28. PLAN: I had a lengthy discussion with Mani regarding prostate cancer and prostate cancer treatm ent options. We discussed prostate cancer biology. We reviewed Eolia scoring and its significance. W e reviewed the Alli nomograms, which would indicate an 11% probability of organ confined d isease, and a 40% probability of extraprostatic extension, and a 19% probability of seminal vesical involvement, and a 29% probability of lymph node involvement. We discussed the full range of treatment options available for prostate cancer including ob servation/active surveillance versus seeking a second opinion versus HIFU versus cryotherapy versus brachytherapy versus external beam radiation therapy and its variants versus open pr ostatectomy versus robotic prostatectomy versus hormone suppression therapy. I used diagram s and illustrations to show Mani how each treatment would be performed including potential side effects and complications associated with treatment. We discussed the relative advantages and disadvantages of each form of therapy. We discuss ed issues related to impotence and incontinence. Ultimately, Mani elects to undergo robotic prostatectomy. Given his adverse Alli nomog karen, I advised him that this may need to be supplemented with postoperative radiation therap y. Given his severe obstructive voiding symptoms and young age, I believe prostatectomy is the best form of therapy for him at this time. He will be referred to Dr. Columba Kohli, urologic oncologist at the [facility] for consideration of robotic prostatectomy. I told him that Dr. Kohli may make other recommendations. I asked him to followup in my o ffice after he has completed treatment for his prostate cancer. I will request records from Dr. Brian Hodgson in [place], [place], who treated him during this brief stay in [place]. He will continue using his Casodex for now. AUA guidelines do not recommend neoadjuvant Era pron prior to prostatectomy, so this is not administered. Patient instructed to resume usual and customary care with primary care provider. I asked Mani to notify me if there were any difficulties voiding, or UTI symptoms, or fla nk pain, or for any questions or concerns whatsoever. This document was generated in part using voice recognition software. Although I have atte mpted to edit the content, I have not thoroughly proofread this note, and manager renewable energy erro rs may occur. CC: Dr Columba Kohli documented in this en counter Plan of Treatment Not on filedocumented as of this encounter Visit Diagnoses + + | Diagnosis | + + | Prostate cancer (HCC) - Primary Malignant neoplasm of prostate | + + | Elevated PSA Elevated prostate specific antigen (PSA) | + + documented in this encounter
--- OUTSIDE RECORDS SUMMARY | ~2020-06-06 | XMS | Encounter Summary ---
Demographics + + + | Address | [address] | | | [place] [address] | + + + | Home Phone | | + + + | Preferred Language | Unknown | + + + | Marital Status | Single | + + + | Orthodox Affiliation | CHR | + + + | Race | White | + + + | Ethnic Group | Not or | + + + Author + + + | Author | [facility] | + + + | Organization | [facility] | + + + | Address | Unknown | + + + | Phone | Unavailable | + + + Support + + +---------+ + | Name | Relationship | Address | Phone | + + +---------+ + | Servando Boyer | ECON | Unknown | | + + +---------+ + Care Team Providers + +------+ + | Care Water Mechanic Name | Role | Phone | + +------+ + | Aryan Grossman MD | PCP | | + +------+ + Reason for Visit + + + | Reason | Comments | + + + | Follow-up visit | | + + + Benefits Check (Routine) [...] Elbert Gamino | | | | | Elevated | [facility] | [address] | | | | | prostate | Rd | [place], [place] | | | | | specific | [place], [place] | [address] | | | | | antigen | [phone] | Phone: | | | | | (PSA) | Phone: | [phone] | | | | | | [phone] | Fax: | | | | | | Fax: | [phone] | | | | | | [phone] | | +--------+--------+ + + + + Encounter Details +--------+---------+ + + + | Date | Type | Department | Care Team | Description | +--------+---------+ + + + | 10/24/ | Office | Urology at [facility] | Simran Osman, | Prostate cancer | | 2018 | Visit | [address] | ACNP [address] | (HCC) (Primary Dx) | | | | [facility] | [facility] [address] | | | | | and Healing, | [place], [place] | | | | | Building , | [address] | | | | | Floor [place], [place] | [phone] | | | | | [address] | | | | | | [phone] | | | +--------+---------+ + + + [...] + + + | Blood Pressure | 137/108 | 10/24/2017 11:41 AM | | | | | PST | | + + + + + | Pulse | 114 | 10/24/2017 11:41 AM | | | | | PST [...] Weight | 92.5 kg (204 lb) | 10/24/2017 10:57 AM | | | | | PST | | + + + + + | Height | - | - | | + + + + + | Body Mass Index | 30.11 | 08/01/2014 8:19 AM | | | | | PST | | + + + + + documented in this encounter Progress Nahid Olivas - 10/24/2017 11:00 AM PSTFormatting of this note might be different from colt carrera. Subjective Reason for call or visit: Lupron injection. Since starting androgen deprivation therapy (ADT) have you experienced: Hot flashes (flushing)? Yes, Increased sweating? No. Night sweats? No. Weight gain? Not assessed Erectile dysfunction? Not assessed Fatigue? Not assessed Tiredness? Not assessed. Swelling of the ankles/feet? Not assessed. Increased urination at night? Not assessed. Mental/mood changes (e.g., depression, mood swings)? No. Dizziness? No. Burning/pain/bruising at the injection site? No Objective Data collected: Mani Garcia comes in today for his Lupron injection for his prostate cancer. Per Simran fields NP Mr. Garcia will be receiving 2 years of ADT, not 9 months as previously prescribed. Prior to beginning the procedure, patient identity was verified, as well as the procedure t o be performed and the site. All equipment required was ready and available. The patient wa s positioned appropriately. Verbal permission to proceed given by Simran MAN. She is present and available in clinic during the entire visit. Procedure: Lupron 22.5 mg was again given intramuscularly into the left upper outer quadra nt of his gluteal muscle. Mr. Garcia wanted this in the L hip again today Final ADT injection will be approx December 2018. Last PSAs: Lab Results Component Value Date PSA 0.18 10/24/2017 PSA 0.92 06/27/2017 PSA 3.03 03/28/2017 PSA 0.75 10/01/2014 PSA 22.07 07/09/2014 Mr. Garcia verbalized agreement and understanding of these instructions and use of Lupron he had no questions upon discharge. - - - - - - - - - - - - - - - - - - - - - - - - - - - - - - - - - - - - - - - - - - - - - - - - - - - - - - - - ASSESSMENT As above I have no concerns at this time. PLAN As above Backup plan and/or next steps: As above NURSING OUTCOME EVALUATION Previous nursing concern(s): no previous concern(s). I believe this patient is Moderately Stable. During this encounter, patient/caregiver verbalizes agreement with the plan and was active participant/motivated. Notified LIP via verbal conversation Nahid Snyder RN [facility] UROLOGY AT [facility] [address] [place] [address] Simran Wilson ACNP - 10/24/2017 11:00 AM PST UROLOGIC ONCOLOGY CLINIC Return Patient Evaluation CC: Biochemical Recurrence of Prostate Cancer HISTORY OF PRESENT ILLNESS: Mr. Mani Garcia is a 52 yo WM with a biochemical recurrence following prostatectomy for prostate cancer. He has a history of [place]roy 4+3, margin positive, +NAYELY, +SVI, [id number] (0/ 10 nodes) prostate cancer who underwent RRP with bilateral PLND on 08/01/[address] Columba Kohli. His pre-operative PSA was 86.19 ng/ml (02/20/14). He was on Casodex briefly prior to surgery. Leupron was recommended but he could not afford it. A metastatic work-up pre-opera tively was negative with bone scan and CT scan. He had significant lower urinary tract sympt oms so surgery was favored over radiation. His first post-op PSA was 0.75 ng/ml on 10/01/14. Nataliia doran then was lost to follow-up and did not return until prompted by his PCP who found his PSA to be 11.54 ng/ml (11/16/16). His PSADT was 7 months at that time. Metastatic work-up with b one scan and CT scan of CAP 12/17/16 (external) showed no evidence of metastatic disease. Rep eat metastatic work-up was negative 07/20/18 ([facility]). He was started on Casdoex on 12/10/16 and received a 3 month leuprolide injection on 12/31/16 with plans for 2 years of therapy. He continues to receive 3 month depot. His last was . He returns today for his next 3 month depot. His PSA today is down . His testosterone is castrate range at 21. He is tolerating ADT but having several symptoms which are difficult on him, these include: fatigue, hot flashes, insomnia, anxiety, poor balance, reduced endurance, ED. His PSA from today is pending. He is having an increase in bone pain in bilateral hips especially. He is sleeping better since starting amitriptyline 10mg QHS for insomnia and recently started traz odone. His PCP is having him wean off amitriptyline due to dry mouth symptoms. He has increa sed joint pain. He is waiting for a sleep study due to PCP suspicion for sleep apnea. DEXA scan 04/14/17 was normal. He takes daily calcium and vitamin D. He has moderate voiding symptoms with an AUA Symptom Score of 23/35. His main complain is u rgency and frequency. He feels that he empties completely. No straining to empty. He was sta rted on oxybutynin and notes improvement in voiding symptoms. He has no incontinence and no gross hematuria. He has diminished sexual function with a MAURICIO score of 5/25. He has been t hrough an alcohol treatment program and and would also like to stop smoking tobacco. He has not had alcohol in over 3 months and he has cut back on tobacco. Prostate Cancer History: He was noted to have a diffusely firm and indurated prostate and a psa on 11/30/13 was 75.46. 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 Bone scan (02/21/14)and CT scan (02/21/14) were both negative. On 02/20/14, a repeat psa w as 86.19. He was initially planning XRT in [place], but he was uninsured. He instead started on Casodex. He has not had luperon secondary to cost with no insurance. He was noted to hav e significant lower urinary tract symptoms, and given his young age and symptoms, he is refe rred for prostatectomy. He had an AUA SS of 28. On 05/31/14 his psa was 28. HIs creatinine was 0.79. Nok Nok Labsits lab: LLB 4+3 90%, LLM 4+3 95%, la 4+3, 96%, RLB 4+3 96%, RLM 4+3 95%, RA 3+4 96% PHYSICAL EXAM: BP 137/108 | Pulse 114 | Wt 92.5 kg (204 lb) | BMI 30.11 kg/(m^2) GEN: appears well, in NAD PSYCH: alert and oriented, affect appropriate SKIN: pink, warm and dry HEENT: nose/throat clear, no scleral icterus. LYMPH: no cervical or supraclavicular adenopathy ABDOM: soft, NT/ND, no hepatosplenomegaly, no masses BACK: no CVA tenderness GROIN: no hernia EXTREM: No edema NEURO: Non-focal LABS: Lab Results Component Value Date PSA 0.18 10/24/2017 PSA 0.92 06/27/2017 PSA 3.03 03/28/2017 PSA 0.75 10/01/2014 PSA 22.07 07/09/2014 Outside PSA results: 11.54 ng/ml 11/16/16 3.48 ng/ml 08/25/15 1.74 ng/ml 04/02/15 0.86 ng/ml 12/19/14 Lab Results Component Value Date TESTOSTERONE 21 (L) 06/27/2017 Ref. Range 03/28/2017 10:54 VITAMIN D 25 HYDROXY Latest Ref Range: 30 - 80 ng/mL 28.1 (L) IMAGING: I personally reviewed the images NUCLEAR [...] IMPRESSION: Prostate Cancer: Biochemical recurrence of prostate cancer s/p RRP with BPLND for a GG 4+3 [id number] prostate cancer (08/01/14). PSA at time of diagnosis was 86.19 ng/ml. Metastatic wor k-up was negative pre-operatively. He received no adjuvant or salvage radiotherapy. His PSA was detectable immediately post-op and increased to 11.54 ng/ml (10/2016) with a PSADT of 7 m onths before he was seen back in follow-up. No adjuvant or salvage RT was given. Repeat meta static work-up was negative 12/17/16. He started androgen deprivation therapy (ADT) 12/2016 wi th a plan for 2 years of ADT. Metastatic work-up was repeated due to bone pain and again neg ative 07/20/17. His PSA is down further to 0.18 ng/ml. Reviewed potential risks with ADT and life style modifications that can mitigate those risk s. Including ways to increase bone health: 1500 mg of Calcium Carbonate (to be divided in TI D dosing), 2000 units of vitamin D per day (he is on more than this already), as well as shekhar ly weight bearing exercise (walking, hiking, stair climbing, jumping jacks). Discussed bene fit of exercises in preventing ADT related sarcopenia as well as metabolic changes associate d with ADT. Encouraged ongoing vigilant monitoring of his BP, blood glucose, and lipids with his PCP. In addition, secondary preventive measures should be pursued in men with a histor y of cardiovascular disease on ADT, such as: rigorous lipid lowering, blood pressure control among hypertensives, and tight control of glucose levels among diabetics. Recommend tobacc o cessation. Lower Urinary Tract Symptoms: Storage symptoms improved on anticholinergic, oxybutynin. [place] erating side effects well. Will continue. HTN: HTN and tachycardia today. Forgot to take his HTN meds this morning. He has no CP toda y. He has had more SOB lately that he thinks it is from weight gain and deconditioning. He i s going to see his PCP about his SOB. PLAN: 1. Leuprolide 3 month depot today 2. Follow-up with PCP regularly for preventative care 3. Continue calcium and vitamin D 4. Continue oxybutynin prn 5. RTC in 3 months for repeat [facility] PSA and leuprolide injection 6. Repeat Vitamin D level and a DEXA in 03/2018 A total of more than 40 minutes was spent with the patient today, over 50% of which was spe nt in counseling and coordination of care. MAGDA Trotter Nurse Practitioner Urologic Oncology documented in thi s encounter Miscellaneous Notes Addendum Note - Nahid Snyder - 10/24/2017 11:00 AM PST Addended by: HAYDEE REINOSO, NAHID Powell o n: 10/24/2017 03:22 PM Modules accepted: Orders ddendum Note - Rashida Gandhi MA - 10/24/2017 11:00 AM PST Addended by: RASHIDA PINA MA on: 10/24/2017 01:10 PM Modules accepted: Orders documented in this encounter Plan of Treatment Not on filedocumented as of this encounter Procedures + +--------+ + + + | Procedure Name | Priori | Date/Time | Associated Diagnosis | Comments | | | ty | | | | + +--------+ + + + | STAFF TO GIVE: | Routin | 10/24/2017 | Prostate cancer | | | LEUPROLIDE ACETATE | e | | (HCC) | | | (3 MNTH) 22.5 MG IM | | | | | | KIT ($ PER 3.75 MG) | | | | | + +--------+ + + + documented in this encounter Results [facility] PSA TOTAL, MONITORING (10/24/2017 10:30 AM PST) [...] + + + + + | [facility] | [address] | [place] [address] | | | [facility] | | | | | HEALTH + [...] | Leuprolide Acetate Injection | Given | | 22.5 mg | | Left | | Intramuscular | | 8 10:00 | | | Buttock | | | | PST | | | | + +--------+ +---------+------+---------+ +---+---+ | | | +---+---+ documented in this encounter"
--- OUTSIDE RECORDS SUMMARY | ~2020-06-06 | XMS | Encounter Summary ---
Demographics + + + | Address | [address] | | | [place] [address] | + + + | Home Phone | | + + + | Preferred Language | Unknown | + + + | Marital Status | Single | + + + | Mu-Ism Affiliation | CHR | + + + | Race | White | + + + | Ethnic Group | Not or | + + + Author + + + | Author | [facility] | + + + | Organization | [facility] | + + + | Address | Unknown | + + + | Phone | Unavailable | + + + Support + + +---------+ + | Name | Relationship | Address | Phone | + + +---------+ + | Servando Boyer | ECON | Unknown | | + + +---------+ + Care Team Providers + +------+ + | Care Tapping Machine Operator Name | Role | Phone | + +------+ + | Aryan Grossman MD | PCP | | + +------+ + Encounter Details +--------+ + + + + | Date | Type | Department | Care Team | Description | +--------+ + + + + | 07/01/ | Oracle Analyst | Urology at [facility] | Columba Kohli, | Prostate cancer | | 2013 | | [address] | [address] | ([facility]) (Primary Dx) | | | | Mailcode: CH10U | [place] [address] | | | | | [place] [facility] | [phone] | | | | | and Healing, | | | | | | Building | | | | | | Floor [place], [place] | | | | | | [address] | | | | | | [phone] | | | +--------+ + + + [...] + +--------+ + + + | PATHOLOGY CONSULT - | Routin | 07/12/2014 | Prostate cancer | Results for this | | REVIEW OUTSIDE | e | | (HCC) | procedure are in the | | SLIDES | | | | results section. | + +--------+ + + + documented in this encounter Results PATHOLOGY CONSULT - REVIEW OUTSIDE SLIDES (07/12/2014) + + + + + + | Component | Value | Ref Range | Performed | Pathologist | | | | | At | Signature | + + + + + + | PATHOLOGY | SOURCE OF SPECIMEN:A | | [facility] | | | CONSULT - | Prostate, needle core | | DEPARTMENT | | | SLIDES | biopsies Materials | | OF | | | | Received:Referring | | PATHOLOGY | | | | Institution: [facility] | | | | | | Diagnostics, [place] | | | | | | [place] [address] | | | | | | Accession Number: | | | | | | [id number] | | | | | | Collection Date: | | | | | | 02/13/2014Sublabeled | | | | | | | | | | | | H&E | | | | | | A to F | | | | | | 6 Final | | | | | | Pathologic | | | | | | Diagnosis:Prostate, | | | | | | needle core biopsies | | | | | | (-14, 02/13/2014, | | | | | | sublabeled | | | | | | A-F):Prostate, left | | | | | | lateral base, biopsy | | | | | | (sublabeled A): - | | | | | | Prostatic | | | | | | adenocarcinoma, [place] | | | | | | grade 4 + 3 = 7, | | | | | | involving two oftwo | | | | | | cores (90%, | | | | | | 80%)Prostate, left | | | | | | lateral mid, biopsy | | | | | | (sublabeled B): - | | | | | | Prostatic | | | | | | adenocarcinoma, [place] | | | | | | grade 4 + 3 = 7, | | | | | | involving two oftwo | | | | | | cores (90%, | | | | | | 90%)Prostate, left apex, | | | | | | biopsy (sublabeled C): | | | | | | - Prostatic | | | | | | adenocarcinoma, [place] | | | | | | grade 4 + 3 = 7, | | | | | | involving two oftwo | | | | | | cores (100%, | | | | | | 90%) - Perineural | | | | | | invasion | | | | | | identifiedProstate, | | | | | | right lateral base, | | | | | | biopsy (sublabeled D): | | | | | | - Prostatic | | | | | | adenocarcinoma, [place] | | | | | | grade 4 + 3 = 7, | | | | | | involving two oftwo | | | | | | cores (90%, | | | | | | 80%) - Perineural | | | | | | invasion | | | | | | identifiedProstate, | | | | | | right lateral mid, | | | | | | biopsy (sublabeled E): | | | | | | - Prostatic | | | | | | adenocarcinoma, [place] | | | | | | grade 4 + 3 = 7, | | | | | | involving two oftwo | | | | | | cores (90%, | | | | | | 90%)Prostate, right | | | | | | apex, biopsy (sublabeled | | | | | | F): - Prostatic | | | | | | adenocarcinoma, [place] | | | | | | grade 3 + 4 = 7, | | | | | | involving two oftwo | | | | | | cores (100%, | | | | | | 90%) Comment: We | | | | | | appreciate the | | | | | | opportunity to review | | | | | | this case and agree | | | | | | withthe previously | | | | | | rendered diagnoses. | | | | | | Case seen by:Natty | | | | | | Morena Johnson/Surgical | | | | | | Pathology | | | | | | FellowChristian | | | | | | Ananthiason, | | | | | | M.D./PathologistThe | | | | | | slides will be returned | | | | | | at a later | | | | | | date. /zach | | | | | | Clinical History:The | | | | | | patient is a 49-year-old | | | | | | male with elevated PSA. | | | | | | My electronic | | | | | | signature indicates that | | | | | | I have personally | | | | | | reviewed alldiagnostic | | | | | | slides, the gross and/or | | | | | | microscopic portion of | | | | | | thisreport and | | | | | | formulated the final | | | | | | diagnosis. | | | | | | Rendering Diagnostician: | | | | | | Gilberto Joseph | | | | | | M.D. | | | | | | Ph.D.PathologistElectron | | | | | | leroy Signed 07/17/2014 | | | | | | 7:33AM | | | | + + + + + + + + | Specimen | + + | | + + + + + + + | Performing | Address | City/State/Zipcode | Phone Number | | Organization | | | | + + + + + | [facility] | [address] | [place] [address] | | | PATHOLOGY | [address] | | | + + + + + documented in this encounter Visit Diagnoses + + | Diagnosis | + + | Prostate cancer (HCC) - Primary Malignant neoplasm of prostate | + + documented in this encounter"
--- OUTSIDE RECORDS SUMMARY | ~2020-06-06 | XMS | Encounter Summary ---
Demographics + + + | Address | NEED ADDRESS | | | [place] [address] | + + + | Home Phone [...] [address] | ECON | [place] [address] | | + + + + + Care Team Providers + +------+ + | Care Early Morning Babysitter Name | Role | Phone | + +------+ + PCP | Unavailable | + +------+ + Encounter Details +--------+ + + + + | Date | Type | Department | Care Team | Description | +--------+ + + + + | 02/10/ | Hospital | [facility] | | | | 1994 - | Encounter | MED CTR GENERIC IP | | | | | | CONV DEPT [address] | | | | 02/11/ | | [place], | | | | 1994 | | [place] [address] | | | | | | [phone] | | | +--------+ + + + [...]
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
--- OUTSIDE RECORDS SUMMARY | ~2020-06-06 | XMS | Encounter Summary ---
Demographics + + + | Address | NEED ADDRESS | | | [place] [address] | + + + | Home Phone [...] Author + + + | Author | [facility] | | | and [place] | + + + | Organization | [facility] | | | [...] Hector Garcia | ECON | [place] [address] | | + + + + + Care Team Providers + +------+ + | Care Ditch Rider Name | Role | Phone | + +------+ + | Aryan Grossman MD | PCP | | + +------+ + Reason for Visit + +--------+ + | Reason | Onset | Comments | | | Date | | + +--------+ + | Medication Refill | 10/22/ | | | | 2014 | | + +--------+ + Encounter Details +--------+ + + + + | Date | Type | Department | Care Team | Description | +--------+ + + + + | 10/22/ | Telephone | [facility] | Aryan Grossman, | Medication Refill | | 2014 | | MEDICINE [address] [place] [address] | [address] | | | | | [place], | [address] [place], | | | | | [place] [address] | [place] [address] | | | | | [phone] | [phone] | | | | | | | [...] this encounter Miscellaneous Notes Telephone Encounter - Leonard Reece - 10/22/2014 11:21 AM PSTPatient was called to notify pharmacy to refill lisinopril. elephone Encounter - Natty He RN - 10/22/2014 10:38 AM PSTNap roxen is refillable. Patients Lisinopril still has refills. Patient will need to contact [facility]. Last refill 09/04/14 #90 + 2 Refills. elephone Encounter - Leonard Reece - 10/22/2014 10:25 AM PSTPatient called looking for refills for the following: Naproxen 500 mg tab twice daily by mouth QTY: 30 tabs Lisinopril 10 mg by mouth daily QTY: 90 tabs Pharmacy of choice: [facility] in [place] Patient can be reached at [phone] Last appointment: 10/03/2014 Future appointment: 01/01/15 documented in this encounter Plan of Treatment [...]
--- OUTSIDE RECORDS SUMMARY | ~2020-06-06 | XMS | Encounter Summary ---
Demographics + + + | Address | NEED ADDRESS | | | [place] [address] | + + + | Home Phone | | + + + | Preferred Language | Unknown | + + + | Marital Status | Single | + + + | Mu-Ism Affiliation | Unknown | + + + [...] Hector Garcia | ECON | [place] [address] | | + + + + + Care Team Providers + +------+ + | Care Specialist Field Engineer Name | Role | Phone | + +------+ + | Loi Frausto PA-C | PCP | | + +------+ + Reason for Visit + +--------+ + | Reason | Onset | Comments | | | Date | | + +--------+ + | Procedure | 05/07/ | confirmation call | | | 2018 | | + +--------+ + Encounter Details +--------+ + + + + | Date | Type | Department | Care Team | Description | +--------+ + + + + | 05/07/ | Telephone | [facility] | [place] | Procedure | | 2018 | | [address] MD [address] | (confirmation call ) | | | | [address] | [address] [facility] | | | | | [place], [place] | [place] [address] | | | | | [address] | [phone] | | | | | [phone] | | | +--------+ + + + [...] this encounter Miscellaneous Notes Telephone Encounter - Samantha Davis CMA - 05/07/2019 1:13 PM PDTAll presurgical check-in i nstructions given Surgery date: 05/08/19 Check-in Time: 715 (OR Schedule states procedure start time 915) No solids or liquids after midnight the night before surgery. Follow the cleansing instructions provided beginning the night before surgery after you michael wer or bathe. No showering the morning of surgery. Please do not wear jewelry, contact lenses, nail djiboutian (on fingers or toes), or make-up to surgery check-in. If you have dentures, hearing aids, or glasses please bring the cases with you to check-in. Medications instructions: Amitriptyline -today Surgical Admit Anticipated Disposition reviewed and correct: "Yes Confirmation of procedure/approval: "Yes". Has patient been seen in the ED or had surgery since last seen in our office?: no Confirm local pharmacy: documented in this enco unter Plan of Treatment Not on filedocumented as of this encounter Visit Diagnoses Not on filedocumented in this encounter
--- OUTSIDE RECORDS SUMMARY | ~2020-06-06 | XMS | Encounter Summary ---
Demographics + + + | Address | NEED ADDRESS | | | [place] [address] | + + + | Home Phone [...] + + + | Author | [facility] | | | and [place] | + + + | Organization | [facility] | | [...] Hector Garcia | ECON | [place] [address] | | + + + + + Care Team Providers + +------+ + | Care Logistics Manager Name | Role | Phone | + +------+ + | Loi Frausto PA-C | PCP | | + +------+ + Reason for Visit + +--------+ + | Reason | Onset | Comments | | | Date | | + +--------+ + | Lab Results | 01/24/ | | | | 2017 | | + +--------+ + Encounter Details +--------+ + + + + | Date | Type | Department | Care Team | Description | +--------+ + + + + | 01/24/ | Telephone | [facility] | Antony Grider, | Lab Results | | 2018 | | PHYSIATRY [address] | MD [address] | | | | | [address] | [place] | | | | | [place] | [address] | | | | | [address] | | | | | | [phone] | | | +--------+ + + + [...] Miscellaneous Notes Telephone Encounter - Emeli Redding Assistant Prosecuting Attorney - 01/24/2018 9:42 AM PDTCalle d to inform Mani Garcia of lab results. Results were relayed. Mani Garcia was advise d to follow up with primary care provider as soon as possible. Results were routed via [employer] to pcp. A M PDTTelephone Encounter - Emeli Redding Assistant Prosecuting Attorney - 01/24/2018 9:42 AM PDT- ---- Message from Antony Grider MD sent at 01/23/2018 11:23 PDT ----- Abigail, Please let Mani Yovany Garcia know that I have reviewed his lab results. His labs demonstrate d elevated blood sugar and low potassium. Please forward his results to his PCP. He needs to follow up with his PCP brian to treat his low potassium. Thank you, Antony Grider MD (Jr.) ----- Message ----- From: Lab, Background User Sent: 01/17/2018 8:16 To: Antony Grider MD do cumented in this encounter Plan of Treatment Not on filedocumented as of this encounter Visit Diagnoses Not on filedocumented in this encounter"
--- OUTSIDE RECORDS SUMMARY | ~2020-06-06 | XMS | Encounter Summary ---
Demographics + + + | Address | NEED ADDRESS | | | [place] [address] | + + + | Home Phone [...] Hector Garcia | ECON | [place] [address] | | + + + + + Care Team Providers + +------+ + | Care Beader Name | Role | Phone | + +------+ + | Loi Frausto PA-C | PCP | | + +------+ + Encounter Details +--------+ + + + + | Date | Type | Department | Care Team | Description | +--------+ + + + + | 05/08/ | Orders Only | [facility] | Zeeshan Hawkins, | Prostate cancer | | 2019 | | [address] | MD [address] | (HCC) (Primary Dx) | | | | [place] | [place] | | | | | [address] | [address] | | | | | [phone] | | | +--------+ + + + [...] as of this encounter Results PSA, Diagnostic (11/05/2019 9:00 AM PST) + +-------+ + + + | Component | Value | Ref Range | Performed | Pathologist | | | | | At | Signature | + +-------+ + + + | PSA | 0.15 | <=4.00 ng/mL | [facility] | | [...] + | [facility] | [address] | [place] | [phone] | | [facility] | | [address] | | | - LABORATORY | | | | + + + + + Comprehensive Metabolic Panel (11/05/2019 9:00 AM PST) + + + + + + | Component | Value | Ref Range | Performed | Pathologist | | | | | At | Signature | + + + + + + | Na | 136 | 136 - 145 | [facility] | | | | | mmol/L | [facility] | | | | | | MEDICAL | | | | | | CENTER - | | | | | | LABORATORY | | + + + + + + | K | 3.9 | 3.4 - 5.1 | [facility] | [...] + + | CO2 | 26 | 20 - 31 mmol/L | [facility] [...] + + | Glucose | 101 | 60 - 106 mg/dL | [facility] | | | | | | [facility] | | | | | | MEDICAL | | | | | | CENTER - | | | | | | LABORATORY | | + + + + + + | BUN | 15 | 9 - 23 mg/dL | [facility] | | | | | | [facility] | | | | | | MEDICAL | | | | | | CENTER - | | | | | | LABORATORY | | + + + + + + | Creatinine | 0.93 | 0.70 - 1.30 | [facility] | [...] mL/min/1.73m2 | [facility] | | | [place] | RATE,ESTIMATED | | MEDICAL | | | | mL/min/1.67j9Ychu than | | CENTER - | | [...] + + + + | Calcium | 9.9 | 8.7 - 10.4 | [facility] | | | | | mg/dL | [facility] | | | | | | MEDICAL | | | | | | CENTER - | | | | | | LABORATORY | | + + + + + + | Albumin | 4.5 | 3.2 - 4.8 g/dL | [facility] | | | | | | [facility] | | | | | | [facility] | | | | | | CENTER - | | | | | | LABORATORY | | + + + + + + | Bilirubin | 0.6 | 0.3 - 1.2 mg/dL | [facility] | | | Total | | | [facility] | | | | | | MEDICAL | | | | | | CENTER - | | | | | | LABORATORY | | + + + + + + | Total | 7.0 | 5.7 - 8.2 g/dL | [facility] | | | Protein | | | [facility] | | | | | | MEDICAL | | | | | | CENTER - | | | | | | LABORATORY | | + + + + + + | AST | 22 | 0 - 34 U/L | [facility] | | | | | | [facility] | | | | | | MEDICAL | | | | | | CENTER - | | | | | | LABORATORY | | + + + + + + | ALT | 17 | 10 - 49 U/L | [facility] | | | | | | [facility] | | | | | | MEDICAL | | | | | | CENTER - | | | | | | LABORATORY | | + + + + + + | Alkaline | 123 (H) | 46 - 116 U/L | [facility] | | | Phosphatase | | | [facility] | | | | | | MEDICAL | | | | | | CENTER - | | | | | | LABORATORY | | + + + + + + | Globulin | 2.5 | 2.1 - 3.8 g/dL | [facility] | | | | | | [facility] | | | | | | MEDICAL | | | | | | CENTER - | | | | | | LABORATORY | | + + + + + + | Albumin/Nancy | 1.8 | 0.8 - 1.9 | [facility] | | | bulin Ratio | | | [facility] | | | | | | MEDICAL | | | | | | CENTER - | | | | | | LABORATORY | | + + + + + + | BUN/Creatin | 16.1 | | [facility] | | | ine [...] | [address] | [place] | [phone] | | [facility] | | [address] | | | - LABORATORY | | | | + + + + + documented in this encounter Visit Diagnoses + + | Diagnosis | + + | Prostate cancer (HCC) - Primary Malignant neoplasm of prostate | + + documented in this encounter"
--- OUTSIDE RECORDS SUMMARY | ~2020-06-06 | XMS | Encounter Summary ---
Demographics + + + | Address | NEED ADDRESS | | | [place] [address] | + + + | Home Phone [...] Author + + + | Author | [facility] | | | and [place] | + + + | Organization | [facility] | | | [...] Hector Garcia | ECON | [place] [address] | | + + + + + Care Team Providers + +------+ + | Care Supervisor Plastic Sheets Name | Role | Phone | + +------+ + | Aryan Grossman MD | PCP | | + +------+ + Reason for Visit +--------+--------+ + | Reason | Onset | Comments | | | Date | | +--------+--------+ + | Other | 06/24/ | Medical Records Request | | | 2013 | | +--------+--------+ + Encounter Details +--------+ + + + + | Date | Type | Department | Care Team | Description | +--------+ + + + + | 06/24/ | Telephone | [facility] | Zeeshan Hawkins, | Other (Medical | | 2013 | | [address] | [address] | Records Request) | | | | [place] | [place] | | | | | [address] | [phone] | | | | | [phone] | | | +--------+ + + + [...] this encounter Miscellaneous Notes Telephone Encounter - Sarah Tompkins - 06/24/2014 1:31 PM PDTThe [facility] sent in a Medical Records request. The r equest was sent to [employer] via fax today. Confirmation received today at 13:06. Original sent to scanning. Electronically signed by Sarah Tompkins at 06/24 1:33 PM PDTdocumented in this encounter Plan of Treatment Not on filedocumented as of this encounter Visit Diagnoses Not on filedocumented in this encounter"
--- OUTSIDE RECORDS SUMMARY | ~2020-06-06 | XMS | Encounter Summary ---
Demographics + + + | Address | NEED ADDRESS | | | [place] [address] | + + + | Home Phone [...] Author + + + | Author | [facility] | | | and [place] | + + + | Organization | [facility] | | | [...] Hector Garcia | ECON | [place] [address] | | + + + + + Care Team Providers + +------+ + | Care Strike Planning Applications Name | Role | Phone | + +------+ + | Aryan Grossman MD | PCP | | + +------+ + Encounter Details +--------+ + + + + | Date | Type | Department | Care Team | Description | +--------+ + + + + | 10/03/ | Hospital | [facility] | Aryan Grossman, | Peripheral | | 2015 | Encounter | [facility] | [address] | neuropathy | | | | [address] [place] | [address] [place], | | | | | [place], [place] | [place] [address] | | | | | [address] | [phone] | | | | | [phone] | | | +--------+ + + + [...] Take 1 tablet by | 90 | 2 | 09/04/20 | | | (PRINIVIL, ZESTRIL) | mouth Daily. | tablet | | 14 | 5 | | 10 mg | | | | | | | tabletIndications: | | | | | | | HTN (hypertension) | | | | | | + + + +---------+ + + | naproxen | Take 1 tablet by | 30 | 0 | 10/03/19 | | | (NAPROSYN) 500 mg | [...] tablet by | 90 | 1 | 09/04/20 | | | (ZOLOFT) 100 mg | mouth Daily. | tablet | | 14 | 5 | | tablet | | | | | | + + + +---------+ + + | varenicline | Take one 0.5mg | 53 | 0 | 10/03/19 | | | (CHANTIX STARTING | tablet by mouth once | tablet | | 15 | 5 | | MONTH BOY) 0.5 [...] | + +--------+ + + + | HEMOGLOBIN A1C | Routin | 10/03/2014 | Peripheral | Results for this | | | e | 11:51 AM | neuropathy | procedure are in the | | | | PST | | results section. | + +--------+ + + + documented in this encounter Results Hemoglobin A1C (10/03/2014 11:51 AM PST) + +-------+ + + + | Component | Value | Ref Range | Performed | Pathologist | | | | | At | Signature | + +-------+ + + + | Hemoglobin | 5.1 | 4.3 - 6.0 % | [facility] | | | A1c | | | [facility] | | | | | | MEDICAL | | | | | | CENTER - | | | | | | LABORATORY | | + +-------+ + + + | Estimated | 100 | mg/dL | [facility] | | | Average | | | [...] + | [facility] | [address] | [place], [place] | [phone] | | [facility] | | [address] | | | - LABORATORY | | | | + + + + + | [facility] [facility] | [address] | [place], [place] | | | [facility] | | [address] | | | - LABORATORY | | | | + + + + + documented in this encounter Visit Diagnoses + + | Diagnosis | + + | Peripheral neuropathy Unspecified hereditary and idiopathic peripheral neuropathy | + + documented in this encounter"
--- OUTSIDE RECORDS SUMMARY | ~2020-06-06 | XMS | Encounter Summary ---
Demographics + + + | Address | [address] | | | [place] [place] [address] | + + + | Home Phone | | + + + | Preferred Language | Unknown | + + + | Marital Status | Single | + + + | Spiritism Affiliation | CHR | + + + | Race | White | + + + | Ethnic Group | Not or | + + + Author + + + | Author | [facility] | + + + | Organization | [facility] | + + + | Address | Unknown | + + + | Phone | Unavailable | + + + Support + + +---------+ + | Name | Relationship | Address | Phone | + + +---------+ + | Servando Boyer | ECON | Unknown | | + + +---------+ + Care Team Providers + +------+ + | Care Restaurant Hourly Manager Name | Role | Phone | + +------+ + | Aryan Grossman MD | PCP | | + +------+ + Encounter Details +--------+ + + + + | Date | Type | Department | Care Team | Description | +--------+ + + + + | 08/09/ | Telephone | Urology at [facility] | Columba Kohli, | | | 2013 | | [address] | [address] | | | | | [facility] | [place] [address] | | | | | and [place], | [phone] | | | | | | | | | | | Floor [place], [place] | | | | | | [address] | | | | | | [phone] | | | +--------+ + + + [...] this encounter Miscellaneous Notes Telephone Encounter - Columba Kohli MD - 08/09/2014 4:01 PM PSTI called Mr. Garcia today to discuss his pathology report. He did not answer. I will try again later.Electronically s igned by Columba Kohli MD at 08/09/2014 4:02 PM PSTdocumented in this encounter Plan of Treatment Not on filedocumented as of this encounter Visit Diagnoses Not on filedocumented in this encounter"
--- OUTSIDE RECORDS SUMMARY | ~2020-06-06 | XMS | Encounter Summary ---
Demographics + + + | Address | NEED ADDRESS | | | [place] [address] | + + + | Home Phone [...] + | Hector Garcia | ECON | [place] [address] | | + + + + + Care Team Providers + +------+ + | Care Robotics Technologist Name | Role | Phone | + [...] Closed | | Radiology | Diagnoses | Frausto, | [facility] | | | | | DDD | Loi, | [address] | | | | | (degenerativ | PA[address]C [address] | [place], | | | | | e disc | [place] | [place] | | | | | disease), | [place] | [address] | | | | | lumbar | [place], [place] | Phone: | | | | | Procedures | [address] | [phone] | | | | | MRI Lumbar | Phone: | Fax: | | | | | Spine wo | [phone] | [phone] | | | | | Contrast | Fax: | | | | | | | [phone] | | +--------+--------+ + + + + [...] | +--------+ + + + + | 04/18/ | Hospital | [facility] | Loi Frausto, | DDD (degenerative | | 2019 | Encounter | [facility] MRI [address] | [address] [place] | disc disease), | | | | [address] [place], | [facility] | lumbar | | | | [place] [address] | [place] [address] | | | | | [phone] | [phone] | | | | | | | [...] + +--------+ + + + | MRI LUMBAR SPINE WO | Routin | 04/18/2019 | DDD (degenerative | Results for this | | CONTRAST | e | 9:35 AM | disc disease), | procedure are in the | | | | PDT | lumbar | results section. | + +--------+ + + + documented in this encounter Results MRI Lumbar Spine wo Contrast (04/18/2019 9:35 AM PDT) + + | Specimen | + + | | + + + + + | Narrative | Performed At | + + + | EXAM: MRI LUMBAR SPINE WO CONTRAST dated 04/18/2019 8:51 AM | [facility] | | HISTORY:DDD (degenerative disc disease), lumbar COMPARISON: | | | Lumbar spine radiograph 10/13/2017. TECHNIQUE: Multiplanar | | | multisequence MR imaging of the lumbar spine without contrast. This | | | is performed on a 1.5Tesla MRI scanner. FINDINGS:There are 5 | | | lumbar-type vertebral bodies. This is either assumed for counting | | | purposes or documented on prior studies. No scoliosis. Slight | | | retrolisthesis of L4 and L5. Disc collapse and desiccation at L4-L5 | | | and L5-S1. There are mixed Modic type I and II endplate changes at | | | L4-L5 and L5-S1. There are no compression deformities. The conus | | | terminates at the thoracolumbar junction. The visible distal cord | | | is unremarkable. T11-T12 is unremarkable as seen on the sagittal | | | sequence only. The following levels are evaluated in the axial | | | plane: T12-L1: No significant central stenosis or neural foraminal | | | narrowing. L1-2: No significant central stenosis or neural | | | foraminal narrowing. L2-3: At the disc level there is a broad | | | posterior disc bulge. There is facet arthrosis and ligamentum | | | flavum redundancy. There is mild epidural lipomatosis. These are | | | superimposed upon mild congenital narrowing of the central spinal | | | canal. This results in severe narrowing of the central spinal canal. | | | Foraminal components of disc and intervertebral mild neural | | | foraminal narrowing bilaterally. Just below the level of the disc | | | in the right lateral recess is a large soft tissue like nodule | | | measuring about 16 x 10 mm. This is in contiguity with a focal | | | inferiorly located annular tear in the L2-L3 disc. There is also a | | | far lateral component of disc on the right which contacts the exited | | | right L2 nerve root in the far lateral region. L3-4: Broad | | | posterior disc protrusion. Moderate facet arthrosis and ligamentum | | | flavum redundancy. Epidural lipomatosis. Severe narrowing of the | | | central spinal canal. Moderate to severe right and lbgj-ch-ajsankgw | | | left neural foraminal narrowing. L4-5: Retrolisthesis. Broad | | | posterior disc protrusion. Foraminal components of disc and | | | marginal osteophyte. Mild facet arthrosis bilaterally. There is | | | overall mild to moderate narrowing of the central spinal canal. | | | There is however severe encroachment on the subarticular recesses. | | | A slightly focal left eccentric component of disc displaces the | | | traversing left L5 nerve root. Moderate to severe right and left | | | neural foraminal narrowing. L5-S1: Slight retrolisthesis. Broad | | | posterior disc protrusion. Foraminal components of disc and | | | marginal osteophytes bilaterally. Mild facet arthrosis. Mild | | | narrowing of the central spinal canal. Severe narrowing of the | | | neural foramen bilaterally. There is some atrophy in the | | | paraspinous muscles. IMPRESSION - Multilevel lumbar | | | spondylosis and spondylolisthesis with congenital narrowing and | | | epidural lipomatosis. The central spinal canal is most | | | significantly affected at L2-L3 and L3-L4 where there is severe | | | narrowing. Also at L2-L3 is a focal right disc extrusion into the | | | lateral recess. This measures 10 x 16 mm. This could be a | | | sequestered disc. Neural foraminal narrowing most significantly | | | affects L4-L5 and L5-S1 bilaterally. Additional, significant | | | spondylosis as above. Dictated and Signed by: Antonio Waite MD | | | Electronically signed: 04/18/2019 10:47 AM | | + + + + + | Procedure Note | + + | Frank, Rad Results In - 04/18/2019 10:50 AM PDT EXAM: MRI LUMBAR SPINE WO CONTRAST | | dated 04/18/2019 8:51 AMHISTORY:DDD (degenerative disc disease), lumbarCOMPARISON: | | Lumbar spine radiograph 10/13/2017.TECHNIQUE: Multiplanar multisequence MR imaging of the | | lumbar spine withoutcontrast. This is performed on a 1.5Tesla MRI scanner. | | FINDINGS:There are 5 lumbar-type vertebral bodies. This is either assumed forcounting | | purposes or documented on prior studies. No scoliosis. Slightretrolisthesis of L4 and | | L5. Disc collapse and desiccation at L4-L5 and L5-S1. There are mixed Modic type I and | | II endplate changes at L4-L5 and L5-S1. Thereare no compression deformities. The conus | | terminates at the thoracolumbarjunction. The visible distal cord is unremarkable. | | T11-T12 is unremarkable asseen on the sagittal sequence only.The following levels are | | evaluated in the axial plane:T12-L1: No significant central stenosis or neural foraminal | | narrowing.L1-2: No significant central stenosis or neural foraminal narrowing.L2-3: At | | the disc level there is a broad posterior disc bulge. There is facetarthrosis and | | ligamentum flavum redundancy. There is mild epidural lipomatosis. These are | | superimposed upon mild congenital narrowing of the central spinalcanal. This results in | | severe narrowing of the central spinal canal. Foraminalcomponents of disc and | | intervertebral mild neural foraminal narrowingbilaterally. Just below the level of the | | disc in the right lateral recess is alarge soft tissue like nodule measuring about 16 x | | 10 mm. This is in contiguitywith a focal inferiorly located annular tear in the L2-L3 | | disc. There is also afar lateral component of disc on the right which contacts the | | exited right Q8chkdg root in the far lateral region.L3-4: Broad posterior disc | | protrusion. Moderate facet arthrosis and ligamentumflavum redundancy. Epidural | | lipomatosis. Severe narrowing of the centralspinal canal. Moderate to severe right and | | hspr-hc-avypsvzf left neuralforaminal narrowing. L4-5: Retrolisthesis. Broad posterior | | disc protrusion. Foraminal components ofdisc and marginal osteophyte. Mild facet | | arthrosis bilaterally. There isoverall mild to moderate narrowing of the central spinal | | canal. There ishowever severe encroachment on the subarticular recesses. A slightly | | focal lefteccentric component of disc displaces the traversing left L5 nerve root. | | Moderate to severe right and left neural foraminal narrowing. L5-S1: Slight | | retrolisthesis. Broad posterior disc protrusion. Foraminalcomponents of disc and | | marginal osteophytes bilaterally. Mild facet arthrosis. Mild narrowing of the central | | spinal canal. Severe narrowing of the neuralforamen bilaterally.There is some atrophy | | in the paraspinous muscles.IMPRESSION - Multilevel lumbar spondylosis and | | spondylolisthesis with congenital narrowingand epidural lipomatosis.The central spinal | | canal is most significantly affected at L2-L3 and L3-L4 wherethere is severe | | narrowing.Also at L2-L3 is a focal right disc extrusion into the lateral recess. | | Thismeasures 10 x 16 mm. This could be a sequestered disc.Neural foraminal narrowing | | most significantly affects L4-L5 and L5-X0vhyovlerorc.Additional, significant | | spondylosis as above.Dictated and Signed by: Antonio Waite MD Electronically signed: | | 04/18/2019 10:47 AM | |disc and marginal osteophyte. Mild facet arthrosis bilaterally. There is | |overall mild to moderate narrowing of the central spinal canal. There is | |however severe encroachment on the subarticular recesses. A slightly focal left | |eccentric component of disc displaces the traversing left L5 nerve root. | |Moderate to severe right and left neural foraminal narrowing. | | | |L5-S1: Slight retrolisthesis. Broad posterior disc protrusion. Foraminal | |components of disc and marginal osteophytes bilaterally. Mild facet arthrosis. | |Mild narrowing of the central spinal canal. Severe narrowing of the neural | |foramen bilaterally. | | | |There is some atrophy in the paraspinous muscles. | | | |IMPRESSION - | | | |Multilevel lumbar spondylosis and spondylolisthesis with congenital narrowing | |and epidural lipomatosis. | | | |The central spinal canal is most significantly affected at L2-L3 and L3-L4 where | |there is severe narrowing. | | | |Also at L2-L3 is a focal right disc extrusion into the lateral recess. This | |measures 10 x 16 mm. This could be a sequestered disc. | | | |Neural foraminal narrowing most significantly affects L4-L5 and L5-S1 | |bilaterally. | | | |Additional, significant spondylosis as above. | | | |Dictated and Signed by: Antonio Waite MD | | Electronically signed: 04/18/2019 10:47 AM | + + + +---------+ + + | Performing | Address | City/State/Zipcode | Phone Number | | Organization | | | | + +---------+ + + | [facility] | | | | + +---------+ + + documented in this encounter Visit Diagnoses + + | Diagnosis | + + | DDD (degenerative disc disease), lumbar Degeneration of lumbar or lumbosacral | | intervertebral disc | + + documented in this encounter"
--- OUTSIDE RECORDS SUMMARY | ~2020-06-06 | XMS | Encounter Summary ---
Demographics + + + | Address | NEED ADDRESS | | | [place] [address] | + + + | Home Phone | | + + + | Preferred Language | Unknown | + + + | Marital Status | Single | + + + | Roman Catholic Affiliation | Unknown | + + + | Race | White | + + + | Ethnic Group | Not or | + + + Author + + + | Author | [facility] | | | and [place] | + + + | Organization | [facility] | | | [...] Hector Garcia | ECON | [place] [address] | | + + + + + Care Team Providers + +------+ + | Care Mainframe Systems Administrator Name | Role | Phone | [...] Description | +--------+--------+ + + + | 01/29/ | Refill | [facility] | Arayn Grossman, | Medication Refill | | 2015 | | MEDICINE [address] | [address] | | | | | [address] [place], | [address] [place], | | | | | [place] [address] | [place] [address] | | | | | [phone] | [phone] | | | | | | | [...]
--- OUTSIDE RECORDS SUMMARY | ~2020-06-06 | XMS | Encounter Summary ---
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[place], | Phone: | | | | | malignant | [place] | [phone] | | | | | neoplasm of | [address] | Fax: | | | | | bone (HCC) | Phone: | [phone] | | | | | Procedures | [phone] | | | | | | [place] DENOSUMAB | Fax: | | | | | | INJECTION, | [phone] | | | | | | 1 MG | | | +--------+--------+ + + + + Encounter Details +--------+ + + + + | Date | Type | Department | Care Team | Description | +--------+ + + + + | 09/29/ | Hospital | [facility] | NataleeMaged, | Bone metastases | | 2019 | Encounter | MED CTR CHEMO | MD [address] | (HCC); Prostate | | | | INFUSION [address] [place], | cancer (HCC) | | | | [place], | [place] [address] | | | | | [place] [address] | [phone] | | | | | [phone] | | | +--------+ + + + [...] documented as of this encounter Progress Notes Veronique Leonard RN - 09/29/2018 11:34 AM PSTDischarged with follow-up appointmentsElec tronically signed by Veronique Leonard RN at 09/29/2018 11:35 AM PSTdocumented in this enc ounter Miscellaneous Notes Treatment Plan - Giancarlo Moeller RN - 09/29/2018 11:20 AM PSTViewed chart for weight, vital signs and lab results. Also viewed chart for completion of medication and allergy re view prior to treatment. documented in this encounter Plan of Treatment [...] (XGEVA) 120 mg/1.7 mL | Given | 09/29/19 | 120 mg | | Arm-Left | | injection 120 mg 120 mg, | | 19 11:31 | | | Upper | | Subcutaneous, ONCE, 09/29/18 at | | AM PST | | | | | 1120, For 1 dose, Keep in | | | | | | | refrigerator. Allow to attain | | | | | | | room temperature prior to use., | | | | | | + +--------+ +--------+------+ + +---+---+ | | | +---+---+ documented in this encounter"
--- OUTSIDE RECORDS SUMMARY | ~2020-06-06 | XMS | Encounter Summary ---
Demographics + + + | Address | [address] | | | [place] [address] | + + + | Home Phone | | + + + | Preferred Language | Unknown | + + + | Marital Status | Single | + + + | Jewish Affiliation | CHR | + + + | Race | White | + + + | Ethnic Group | Not or | + + + Author + + + | Author | [facility] | + + + | Organization | [facility] | + + + | Address | Unknown | + + + | Phone | Unavailable | + + + Support + + +---------+ + | Name | Relationship | Address | Phone | + + +---------+ + | Servando Boyer | ECON | Unknown | | + + +---------+ + Care Team Providers + +------+ + | Care Tissue Recovery Technician Name | Role | Phone | + +------+ + | Aryan Grossman MD | PCP | | + +------+ + Reason for Visit + + + | Reason | Comments | + + + | Radiology Results | | + + + Encounter Details +--------+ + + + + | Date | Type | Department | Care Team | Description | +--------+ + + + + | 07/26/ | Documentati | Urology at [facility] | Simran Osman, | Radiology Results | | 2017 | on | [address] | [facility] [address] [facility] | | | | | Mailcode: [id number] | [address] | | | | | [facility] | [place], [place] | | | | | and Healing, | [address] | | | | | Building | [phone] | | | | | Floor [place], [place] | | | | | | [address] | | | | | | [phone] | | | +--------+ + + + [...] this encounter Miscellaneous Notes Telephone Encounter - Rashida Pina MA - 07/26/2017 9:24 AM PDTCT Chest abd pelvis fro m 07/20 entered in Media documented in this encounter Plan of Treatment Not on filedocumented as of this encounter Visit Diagnoses Not on filedocumented in this encounter"
--- OUTSIDE RECORDS SUMMARY | ~2020-06-06 | XMS | Encounter Summary ---
Demographics + + + | Address | NEED ADDRESS | | | [place] [address] | + + + | Home Phone [...] + + + | Author | [facility] | | | and [place] | + + + | Organization | [facility] | | | [...] + | Hector Garcia | ECON | [place] [address] | | + + + + + Care Team Providers + +------+ + | Care Oil Well Service Operator Helper Name | Role | Phone | [...] Medicine | NAHUN | Christian Gupta | [place] [address] [address] | | | Required | | (obstructive | [address] | [place] | | | | | sleep | [place] | [place], | | | | | apnea) | [facility] | [place] [address] | | | | | Organic | [place], [place] | Phone: | | | | | insomnia | [phone] | [phone] | | | | | Procedures | Phone: | Fax: | | | | | [place] POLYSOM | [phone] | [phone] | | | | | 6/>YRS SLEEP | Fax: | | | | | | W/CPAP 4/> | [phone] | | | | | | ADDL ALVARO | | | | | | | ATTND [place] | | | | | | | POLYSOM | | | | | | | 6/>YRS SLEEP | | | | | | | 4/> ADDL | | | | | | | ALVARO ATTND | | | | | | | S/N (3 @ | | | | | | | 7pm) not | | | | | | | canidate for | | | | | | | HST | | | +--------+ + + + + + Encounter Details +--------+ + + + + | Date | Type | Department | Care Team | Description | +--------+ + + + + | 12/26/ | Hospital | [facility] | Christian Sosa | NAHUN (obstructive | | 2018 - | Encounter | MED CTR SLEEP | MD [place] [address] [place] [address] | sleep apnea); | | | | [address] [place] | [facility] | Organic insomnia; | | 12/27/ | | [place], [place] | [place] [address] | CSA (central sleep | | 2018 | | [address] | [phone] | apnea); Periodic | | | | [phone] | | limb movements of | | | | | | sleep; REM sleep | | | | | | behavior disorder | +--------+ + + + + Social [...] mg by mouth | | 0 | //20 | | | hydroCHLOROthiazide | Daily. | [...] Procedure Notes Christian Sosa Jr., MD - 01/05/2018 1:23 PM PDTAssociated Order(s): SLEEP STUDY DIAGNOST IC ONLY NO PAPProcedure(s): SLEEP STUDY DIAGNOSTIC ONLY NO PAPPre-Proced ure Diagnose(s): NAHUN (obstructive sleep apnea)Post-Procedure Diagnose(s): NAHUN (obstructive s leep apnea); Periodic limb movement disorder; REM sleep behavior disorder; CSA (central slee p apnea) [facility] [place] [address] Polysomnogram Report on Mani Garcia performed on December 2017. Clinical Information: Mani Garcia is a 52 [...] be clinically significant. Christian Sosa Jr., MD, [facility] Portfolio Analyst [facility] [place] Clinical card writer hand [place], [place] docum ented in this encounter Plan of Treatment Not on filedocumented as of this encounter Procedures + +--------+ + + + | Procedure Name | Priori | Date/Time | Associated Diagnosis | Comments | | | ty | | | | + +--------+ + + + | SLEEP STUDY | Routin | 01/05/2018 | | Results for this | | DIAGNOSTIC ONLY NO | e | 1:23 PM | | procedure are in the | | PAP | | PDT | | results section. | + +--------+ + + + | SLEEP STUDY | Routin | 01/05/2018 | | Results for this | | DIAGNOSTIC ONLY NO | e | 1:23 PM | | procedure are in the | | PAP | | PDT | | results section. | + +--------+ + + + documented in this encounter Results Sleep study diagnostic only (no PAP) (01/05/2018 1:23 PM PDT) + + + | Narrative | Performed At | + + + | Christian Gupta | | | Ian Leavitt MD 01/05/2018 13:41 [facility] | | | [place] [address] | | | Polysomnogram Report on Mani Garcia performed on December 2017. | | | Clinical Information: Mani Garcia is a 52 y.o. male who | | | underwent diagnostic nocturnal polysomnography on December 26, 2017 on | | | referral from Dr. Gloria because of possible obstructive sleep apnea.. | | | Technical Information: Please see technical data which is attached. | | | Definitions (The AASM Manual for the Scoring of Sleep and Associated | | | Events, Version 2.4; 2017): Apnea: There is a drop in the peak signal | | | excursion by 90% or greater of pre-event baseline using an oronasal | | | thermal sensor (diagnostic study), PAP device flow (titration study), | | | or an alternative apnea sensor (diagnostic study); the duration of the | | | 90% or greater drop in sensor signal is 10 seconds or longer. | | | Obstructive Apnea: Event associated with continued or increased | | | inspiratory effort throughout the entire period of absent airflow. | | | Central Apnea: Event associated with absent inspiratory effort | | | throughout the entire period of absent airflow. Mixed Apnea: Event | | | associated with absent inspiratory effort in the initial portion of | | | the event followed by resumption of inspiratory [...] hundred hours on December 26, 2017 and | | | lights on was recorded at 0919 hundred hours on December 27, 2017. The | | | latency to sleep onset was prolonged at 39 minutes. The patient slept | | | for 496 minutes out of 737.5 minutes of study time resulting an a | | | sleep efficiency that was 67.3%. Sleep maintenance was also low at | | | 71.4 %. The amount of N1 sleep was normal at 7.8 % of the Total | | | Sleep Time; the amount of N2 sleep was elevated at 79.5 % of the Total | | | Sleep Time; the amount of N3 sleep was low at 0 % of the Total Sleep | | | Time; the amount of REM sleep was mildly decreased at 12.7 % of the | | | Total Sleep Time and the latency to REM sleep prolonged at 220.5 | | | minutes. Sleep in the following positions was recorded: left lateral | | | decubitus 56.6%, right lateral decubitus 1%, supine 32.2%, prone | | | 10.3%. Sleep was mildly fragmented; the Arousal Index was 22.7. The | | | patient reported this to be much worse than a usual night's sleep. | | | Cardiopulmonary Monitoring: The heart rate averaged in the mid to | | | upper 80s beats per minute. Mild rate variability was noted. The | | | rhythm was sinus. In the course of the evening there were 37 | | | obstructive apneas, 8 mixed apneas, 33 central apneas, 18 hypopneas, | | | and 96 Respiratory Effort Related Arousals (RERA's). The Respiratory | | | Disturbance Index (RDI) was elevated at 16.9; the Apnea-Hypopnea Index | | | elevated at 11.6; the Apnea Index (AI) elevated at 9.4. The | | | respiratory events were sleep stage dependent. The events were more | | | frequently seen in non-REM sleep (REM related Apnea Hypopnea Index | | | 5.7, non-REM related Apnea Hypopnea Index 12.5). The respiratory | | | events were significantly positional. The events were primarily seen | | | in the supine position (supine Apnea Hypopnea Index 32.4, nonsupine | | | Apnea Hypopnea Index 1.8). The respiratory events occasioned | | | significant sleep fragmentation; the Respiratory Arousal Index was | | | 10.8. The adarsh oxygen saturation was 89% and the patient spent 0 | | | minutes with an oxygen saturation of less than 88%. ETCO2 was not | | | significantly elevated. Limb Movement Monitoring: There were 437 | | | Periodic Limb Movements (PLMS Index of 52.9) of which 28 were | | | associated with arousals; the PLMS Arousal Index was normal at 3.4. | | | Miscellaneous: Phasic chin EMG and leg EMG activity was noted more | | | than one expects in REM sleep. My notes of the feet were noted | | | during REM sleep. This all suggests mild REM sleep behavior | | | disorder. No violent movements were noted. Interpretation: This | | | polysomnogram is abnormal secondary to: A combination of obstructive | | | and central sleep apnea is diagnosed. This is not associated with | | | significant oxygen desaturation. This is associated with mild sleep | | | fragmentation the primary pathology is felt to be that of obstructive | | | sleep apnea however. The central apneas did not occur in a | | | Ari-Rasmussen patternPeriodic limb movements of sleep are present but | | | they did not seem to significantly fragment sleep.Chin and leg EMG | | | suppression during REM sleep was abnormal. Foot movements during REM | | | sleep were noted. The combination suggests REM sleep behavior | | | disorder. The movements noted in REM sleep were not periodic limb | | | movements. Suggestions:1. The principles of sleep hygiene should be | | | reviewed with the patient.2. Treatment of Obstructive Sleep Apnea is | | | advised. Polysomnographically guided positive airway pressure | | | titration is advised. The titration should start with CPAP but if | | | central apneas persist, ASV would be warranted.3. Close follow-up is | | | recommended because of the possibility of REM Sleep Behavior | | | Disorder.4. A ferritin level should be checked. If the ferritin level | | | is less than 75ug/ml, iron supplementation should be considered to | | | raise the ferritin to above 75ug/ml. This may help with PLMS. Once the | | | ferritin level is above 75ug/ml, pharmacologic therapy of PLMS/RLS | | | should be considered if they are felt to be clinically significant. | | | Christian Sosa Jr., MD, [facility] SYSTEMSMMedical DirectorUniversity Hospitals Beachwood Medical Centerelham [facility] | | | [facility] | | | RONNY RitchieClinical Trekking Guide of MedicineThe [facility] | | | [place], [place] | | |the PLMS Arousal Index was normal at 3.4. | | | | | |Miscellaneous: Phasic chin EMG and leg EMG activity was noted | | |more than one expects in REM sleep. My notes of the feet were | | |noted during REM sleep. This all suggests mild REM sleep | | |behavior disorder. No violent movements were noted. | | | | | |Interpretation: This polysomnogram is abnormal secondary to: | | | | | |A combination of obstructive and central sleep apnea is | | |diagnosed. This is not associated with significant oxygen | | |desaturation. This is associated with mild sleep fragmentation | | |the primary pathology is felt to be that of obstructive sleep | | |apnea however. The central apneas did not occur in a | | |Ari-Arsmussen pattern | | |Periodic limb movements of sleep are present but they did not | | |seem to significantly fragment sleep. | | |Chin and leg EMG suppression during REM sleep was abnormal. Foot | | |movements during REM sleep were noted. The combination suggests | | |REM sleep behavior disorder. The movements noted in REM sleep | | |were not periodic limb movements. | | | | | |Suggestions: | | |1. The principles of sleep hygiene should be reviewed with the | | |patient. | | |2. Treatment of Obstructive Sleep Apnea is advised. | | |Polysomnographically guided positive airway pressure titration is | | |advised. The titration should start with CPAP but if central | | |apneas persist, ASV would be warranted. | | |3. Close follow-up is recommended because of the possibility of | | |REM Sleep Behavior Disorder. | | |4. A ferritin level should [...] | | | |Christian Sosa Jr., MD, [facility] | | |Portfolio Analyst | | |[facility] | | |[facility] | | |RONNY Torres | | |Clinical card writer hand | | |[facility] | | |[place], [place] | | + + + + + | Procedure Note | + + | Christian Sosa Jr., MD - 01/05/2018 1:23 PM PDT [facility] | | Disorders [place], [place] [id number] Report on | | Mani Garcia performed on December 2017.Clinical Information: Mani Gacria is a 52 | | y.o. male who underwent diagnostic nocturnal polysomnography on December 26, 2017 on | | referral from Dr. Gloria because of possible obstructive sleep apnea..Technical | | Information: Please see technical data which is attached.Definitions (The AASM Manual | | for the Scoring of Sleep and Associated Events, Version 2.4; 2017): Apnea: There is a | | drop in the peak signal excursion by 90% or greater of pre-event baseline using an | | oronasal thermal sensor (diagnostic study), PAP device flow (titration study), or an | | alternative apnea sensor (diagnostic study); the duration of the 90% or greater drop in | | sensor signal is 10 seconds or longer. Obstructive Apnea: Event associated with | | continued or increased inspiratory effort throughout the entire period of absent | | airflow. Central Apnea: Event associated with absent inspiratory effort throughout the | | entire period of absent airflow. Mixed Apnea: Event associated with absent inspiratory | | effort in the initial portion of the event followed by resumption of inspiratory effort | | during the second portion of the event. Hypopnea: The peak signal excursions drop by | | greater than or equal to 30% of pre-event baseline using a recommended or alternative | | airflow sensor and the duration of the >= 30% drop in signal excursion is greater than | | or equal to 10 seconds and there is a greater than or equal to a 4% oxygen desaturation | | from pre-event baseline. Respiratory Event Related Arousal: A sequence of breaths | | lasting 10 seconds or longer characterized by increasing respiratory effort or by | | flattening of the inspiratory portion of the nasal pressure (diagnostic study) or PAP | | device flow (titration study) waveform leading to arousal from sleep when the sequence | | of breaths does not meet criteria for an apnea or hypopnea.Sleep Architecture: Lights | | out was recorded at 2101 hundred hours on December 26, 2017 and lights on was recorded at | | 0919 hundred hours on December 27, 2017. The latency to sleep onset was prolonged at 39 | | minutes. The patient slept for 496 minutes out of 737.5 minutes of study time resulting | | an a sleep efficiency that was 67.3%. Sleep maintenance was also low at 71.4 %. The | | amount of N1 sleep was normal at 7.8 % of the Total Sleep Time; the amount of N2 sleep | | was elevated at 79.5 % of the Total Sleep Time; the amount of N3 sleep was low at 0 % of | | the Total Sleep Time; the amount of REM sleep was mildly decreased at 12.7 % of the | | Total Sleep Time and the latency to REM sleep prolonged at 220.5 minutes.Sleep in the | | following positions was recorded: left lateral decubitus 56.6%, right lateral decubitus | | 1%, supine 32.2%, prone 10.3%.Sleep was mildly fragmented; the Arousal Index was | | 22.7.The patient reported this to be much worse than a usual night's | | sleep.Cardiopulmonary Monitoring: The heart rate averaged in the mid to upper 80s beats | | per minute. Mild rate variability was noted. The rhythm was sinus.In the course of the | | evening there were 37 obstructive apneas, 8 mixed apneas, 33 central apneas, 18 | | hypopneas, and 96 Respiratory Effort Related Arousals (RERA's). The Respiratory | | Disturbance Index (RDI) was elevated at 16.9; the Apnea-Hypopnea Index elevated at 11.6; | | the Apnea Index (AI) elevated at 9.4. The respiratory events were sleep stage | | dependent. The events were more frequently seen in non-REM sleep (REM related Apnea | | Hypopnea Index 5.7, non-REM related Apnea Hypopnea Index 12.5). The respiratory events | | were significantly positional. The events were primarily seen in the supine position | | (supine Apnea Hypopnea Index 32.4, nonsupine Apnea Hypopnea Index 1.8). The respiratory | | events occasioned significant sleep fragmentation; the Respiratory Arousal Index was | | 10.8.The adarsh oxygen saturation was 89% and the patient spent 0 minutes with an oxygen | | saturation of less than 88%.ETCO2 was not significantly elevated.Limb Movement | | Monitoring: There were 437 Periodic Limb Movements (PLMS Index of 52.9) of which 28 were | | associated with arousals; the PLMS Arousal Index was normal at 3.4.Miscellaneous: | | Phasic chin EMG and leg EMG activity was noted more than one expects in REM sleep. My | | notes of the feet were noted during REM sleep. This all suggests mild REM sleep | | behavior disorder. No violent movements were noted.Interpretation: This polysomnogram | | is abnormal secondary to:A combination of obstructive and central sleep apnea is | | diagnosed. This is not associated with significant oxygen desaturation. This is | | associated with mild sleep fragmentation the primary pathology is felt to be that of | | obstructive sleep apnea however. The central apneas did not occur in a Ari-Rasmussen | | patternPeriodic limb movements of sleep are present but they did not seem to | | significantly fragment sleep.Chin and leg EMG suppression during REM sleep was abnormal. | | Foot movements during REM sleep were noted. The combination suggests REM sleep | | behavior disorder. The movements noted in REM sleep were not periodic limb | | movements.Suggestions:1. The principles of sleep hygiene should be reviewed with the | | patient.2. Treatment of Obstructive Sleep Apnea is advised. Polysomnographically guided | | positive airway pressure titration is advised. The titration should start with CPAP | | but if central apneas persist, ASV would be warranted.3. Close follow-up is recommended | | because of the possibility of REM Sleep Behavior Disorder.4. A ferritin level should be | | checked. If the ferritin level is less than 75ug/ml, iron supplementation should be | | considered to raise the ferritin to above 75ug/ml. This may help with PLMS. Once the | | ferritin level is above 75ug/ml, pharmacologic therapy of PLMS/RLS should be considered | | if they are felt to be clinically significant.Christian Sosa Jr., MD, FAASMMedical | | [facility] | | Anastacio Casanova Trekking Guide of MedicineThe [facility]opedic Specialty Hospital | | [place], [place] | + + documented in this encounter Visit Diagnoses + + | Diagnosis | + + | NAHUN (obstructive sleep apnea) Obstructive sleep apnea (adult) (pediatric) | + + | Organic insomnia Organic insomnia, unspecified | + + | CSA (central sleep apnea) Unspecified sleep apnea | + + | Periodic limb movements of sleep Periodic limb movement disorder | + + | REM sleep behavior disorder | + + documented in this encounter"
--- OUTSIDE RECORDS SUMMARY | ~2020-06-06 | XMS | Encounter Summary ---
Demographics + + + | Address | NEED ADDRESS | | | [place] [address] | + + + | Home Phone [...] Hector Garcia | ECON | [place] [address] | | + + + + + Care Team Providers + +------+ + | Care Cloth Coverer Name | Role | Phone | + +------+ + | Loi Frausto PA-C | PCP | | + +------+ + Encounter Details +--------+ + + + + | Date | Type | Department | Care Team | Description | +--------+ + + + + | 02/15/ | Hospital | [facility] | Maged Albright, | Prostate cancer | | 2019 | Encounter | MED CTR MEDICAL | [address] | (HCC) (Primary Dx); | | | | [facility] [address] [place], | Bone metastases | | | | [place] | [place] [address] | (HCC) | | | | [place] [address] | [phone] | | | | | [phone] | | | +--------+ + + + [...]
--- OUTSIDE RECORDS SUMMARY | ~2020-06-06 | XMS | Encounter Summary ---
Demographics + + + | Address | [address] | | | [facility] [address] | + + + | Home Phone | | + + + | Preferred Language | Unknown | + + + | Marital Status | Single | + + + | Church Affiliation | CH[employer] | + + + | Race | White | + + + | Ethnic Group | Not or | + + + Author + + + | Author | [facility] | + + + | Organization | [facility] | + + + | Address | Unknown | + + + | Phone | Unavailable | + + + Support + + +---------+ + | Name | Relationship | Address | Phone | + + +---------+ + | Servando Boyer | ECON | Unknown | | + + +---------+ + Care Team Providers + +------+ + | Care Package Worker Name | Role | Phone | [...] + + + + | 08/01/ | Anesthesia | 6A Intra Op 3181 | Lynne Wheatley, | | | 2013 | Event | CHRISTOPHER Melendez | MD [place], | | | | | [facility] | Ash RN 3181 | | | | | Hospital Admitting | CHRISTOPHER Melendez | | | | | Desk Located on the | Rd [place], [place] | | | | | [facility] | [phone] | | | | | [place], [place] | | | | | | [phone] | | | +--------+ + + + + Anesthesia Record + + + + + | Procedure Name | Responsible | Anesthesia Start | Anesthesia Stop Time | | | Anesthesiologist | Time | | + + + + + | OPEN RADICAL | Lynne Wheatley MD | 08/01/14 1053 | 08/01/14 1508 | | PROSTATECTOMY, | | | | | bilateral pelvic | | | | | lymphadenectomy; | | | | | pathology sent (3 | | | | | [place]), see paper | | | | | record (N/A Abdomen) | | | | + + + + + +----+---+ + + | Da | T | Event | Comment | | te | i | | | | | m | | | | | e | | | +----+---+ + + | 11 | 1 | Eq Check | Anesthesia machine checked Equipment verified | | /0 | 0 | | | | 6/ | 3 | | | | 20 | 0 | | | | 14 | | | | +----+---+ + + | | 1 | Pt. Check | Prior to anesthesia start, pt. Identified, examined, chart | | | 0 | | reviewed, PARQ held, anesthetic plan made or approved by | | | 3 | | attending anesthesiologist. NPO status confirmed as appropriate | | | 0 | | for procedure Preoperative evaluation: unchanged | +----+---+ + + | | 1 | An Start | | | | 0 | | | | | 5 | | | | | 3 | | | +----+---+ + + | | 1 | Eq Check | Anesthesia machine checked Equipment verified | | | 0 | | | | | 5 | | | | | 7 | | | +----+---+ + + | | 1 | An Start | | | | 0 | Data | | | | 5 | | | | | 7 | | | +----+---+ + + | | 1 | Vitals | Monitors applied Vital signs checked Patient ready for anesthesia | | | 1 | Checked | | | | 0 | | | | | 0 | | | +----+---+ + + | | 1 | Std. Airway | | | | 1 | Mgt. | | | | 0 | | | | | 4 | | | +----+---+ + + | | 1 | Ready | | | | 1 | | | | | 0 | | | | | 6 | | | +----+---+ + + | | 1 | Abx | | | | 1 | Administere | | | | 2 | d | | | | 2 | | | +----+---+ + + | | 1 | Incision | | | | 1 | | | | | 3 | | | | | 7 | | | +----+---+ + + | | 1 | Quick Note | Urinary catheter disconnected. | | | 3 | | | | | 1 | | | | | 6 | | | +----+---+ + + | | 1 | Surgery end | | | | 4 | | | | | 5 | | | | | 6 | | | +----+---+ + + | | 1 | An Extubate | Neuromuscular function Intact. Pharynx suctioned. Patient obeys | | | 4 | | commands. Adequate pulmonary mechanics. | | | 5 | | | | | 8 | | | +----+---+ + + | | 1 | an stop | | | | 5 | data | | | | 0 | | | | | 3 | | | +----+---+ + + | | 1 | Anesthesia | | | | 5 | End | | | | 0 | | | | | 8 | | | +----+---+ + + +------+ | Meds | +------+ + + + | Name | Total | + + + | midazolam | 2 mg | + + + | ceFAZolin | 2,000 mg | + + + | propofol | 200 mg | + + + | rocuronium | 130 mg | + + + | SUFentanil INF | 62.56 mcg | + + + | fentaNYL | 300 mcg | + + + | ePHEDrine | 10 mg | + + + | ondansetron | 4 mg | + + + | glycopyrrolate | 0.3 mg | + + + | neostigmine | 1 mg | + + + | LR | 3,200 mL | + + + | NS | 1,000 mL | + + + + + | Name | + + | O2 FR Avance (Total Liters) | + + | Air FR Avance (l/min) | + + | Insp Parminder | + + | Et Parminder | + + | Insp Iso | + + | Et Iso | + + | Insp N2O % | + + + + | No blood administrations on file. | + + +--------+ + + + | Type | Details | Placement | Removal | +--------+ + + + | RETIRE | 08/01/14; No; abdomen; 07/14/17 | 08/01/14 0000 by | 07/14/17 1622 by | | D - | (Automatic cleanup per RA | Nancy K Commack, RN | Discontinued After | | Incisi | 3006--contact admin for | | Discharge | | on | questions.); 1622 (Automatic | | | | | cleanup per RA 3006--contact | | | | | admin for questions.) | | | +--------+ + + + | RETIRE | 08/01/14; 07/14/17 (Automatic | 08/01/14 0000 by | 07/14/17 162 by | | D - | cleanup per RA 3006--contact | Marianna Catherine RN | Discontinued After | | Urinar | admin for questions.); 1622 | | Discharge | | y Cath | (Automatic cleanup per RA | | | | | 3006--contact admin for | | | | Placem | questions.); No; Lacy (inserted | | | | ent | by Dr. Kohli); 20FR | | | | (Stacy | | | | | & Cath | | | | | Care | | | | | Daily | | | | | and Q | | | | | BM) | | | | +--------+ + + + | RETIRE | 08/01/14; 08/04/14; 0700; No; | 08/01/14 0000 by | 08/04/14 0700 by | | D - | 10mm; VIKKI; Abdomen | Marianna Catherine RN | Guillermina Pavon RN | | Drains | | | | | | | | | | (wound | | | | | s/surg | | | | | ical) | | | | +--------+ + + + | RETIRE | 08/01/14; 0843; 08/04/14; 0700; | 08/01/14 08 by | 08/04/14 07 by | | D - | No; 16; Left; Hand; Lidocaine; | Ivan Cabrera RN | Guillermina Pavon RN | | Periph | No; Positive; 1; Therapy | | | | eral | completed | | | | Line | | | | +--------+ + + + | RETIRE | 08/01/14; 1105; 08/03/14; 0819; | 08/01/14 1105 by | 08/03/14 0819 by | | D - | No; 16; Left; Forearm; No; | Ceci Thornton, | Guillermina Pavon RN | | Periph | Positive; 1; Therapy completed | [employer] | | | eral | | | | | Line | | | | +--------+ + + [...] encounter OR Notes Anesthesia Postprocedure Evaluation - Ceci Thornton CRNA - 08/01/2014 4:02 PM PSTF ormatting of this note might be different from the original. Mani Garcia [id number] No Known Allergies Past Surgical History Procedure Laterality Date Back surgery 1992 lumbar Hand surgery Right 2007 Temp: 36.9 C (98.4 F) Pulse: 78 Resp: 12 BP: 119/80 mmHg SpO2: 98 % Evaluation Patient personally seen and evaluated for recovery from anesthesia care, VS including tempe rature and hydration status are normal and ROS including card, resp, Neuro, and GI w/o evide nce of adverse effects Complications nesthesia Pre procedure Evaluation - Lynne Wheatley MD - 08/01/2014 12:08 PM PSTFormatting of this not e might be different from the original. Mani Garcia [id number] No Known Allergies NPO:NPO Status: SD Last Vitals: Temp: 36.9 C (98.4 F) Pulse: 72 Resp: 11 BP: 108/74 mmHg SpO2: 97 % O2 Flow Rate: 3 LPM O2 Delivery Device: Nasal cannula Preg Status/LMP: There is no problem list on file for this patient. Past Surgical History Procedure Laterality Date Back surgery 1992 lumbar Hand surgery Right 2007 Current Medication List Name Sig Last Dose ASPIRIN 81 MG TABLET,DELAYED RELEASE Take by mouth. Unknown BICALUTAMIDE 50 MG TABLET Take 50 mg by mouth once daily. Within last 30 days LISINOPRIL 10 MG TABLET Take 10 mg by mouth once daily. Indications: HYPERTENSION 07/31/2014 NAPROXEN 500 MG TABLET Take 500 mg by mouth two times daily. 07/31/2014 SERTRALINE 50 MG TABLET Take 50 mg by mouth once daily. 07/31/2014 Lab Results Component Value Date RATE 84 07/31/2014 ATRIALRATE 85 07/31/2014 AZ 172 07/31/2014 QRS 108 07/31/2014 QT 372 07/31/2014 PAXIS 59 07/31/2014 RAXIS 33 07/31/2014 TAXIS 42 07/31/2014 Preoperative Adult Anesthesia Plan Last edited 07/31/14 1341 by Stefanie Grimm NP ROS Pertinent HPI: Pulmonary: Within Defined Limits except as noted below no cough no URI no shortness of breath Pt. Has no asthma no COPD No dx of sleep apnea Risks factors for sleep apnea: Pt SNORE's loudly (louder than talking) Pt. being treated for high blood pressure Age>50, Male gender and Neck circumference> 40 cm pt. at high risk of NAHUN Cardiovascular: Able to walk "several miles" Within Defined Limits except as noted below Functional Capacity: Moderate - dyspnea on exertion, palpitations, chest pressure and syncope no CAD hypertension well controlled Vascular: VASCULAR SYMPTOMS hyperlipidemia no pacemaker GI/Hepatic: Within Defined Limits except as noted below GERD Control: Well controlled No liver disease no hepatitis : Within Defined Limits except as noted below renal failure (No renal problems) Other : Types: genitourinary malignancy Endo: Within Defined Limits except as noted below no Diabetes: Neurological: 2011-TIA , "mini stroke"-denies residual Within Defined limits except as noted below Sign/Sx Hx of CVA Treatments: Treated w/medications no seizures psychiatric problem depression Current Pain Level: Current pain level: 0 MS: No active musculoskeletal problems arthritis Type: osteoarthritis arthralgias Heme/Onc: No anemia, active bleeding, blood clotting issues. No history of malignancy. Malignancy: cancer, Location: Prostate, Metastasis: Skin: Within Defined Limits except as noted below No open wounds or sores No hx MRSA/VRE/Active skin infection Physical Exam General: Patients general appearance: Healthy, Alert, No distress, Cooperative and Age appropriate Head & Neck/Airway: NC/AT; nl appearing ears and nose. Neck ROM: full TM Distance:Normal Dentition: dentition is normal Hernandez: No Mallampati: IV Mouth Opening: > = 3 cm C-Spine: normal Neck Anatomy: Normal Jaw Protrusion: Normal, lower incisors can protrude past upper incisors Lung Exam: No respiratory distress. Normal breathing pattern. breath sounds normal Cardiac: No murmurs, gallops or rubs. Rhythm: regular Rate: normal Abdominal: General Findings: Nondistended Bowel Sounds: bowel sounds are normal Musculoskeletal: Findings: tone normal Neuro/Psych: Alert and appropriate; nl affect. alert Findings: No tremor, Alert, oriented to person, place, time and Normal affect Integument: No open rashes or lesions noted. - lesion, rash and open wounds Color: pink Turgor: turgor normal Implants: None, 1341 Anesthesia Plan Comments ASA ASA 2 NPO Status NPO Status: NPO by protocol Monitors/Lines to be used Standard Anesthetic Consideration Preop antiobiotics and PONV prophylaxis Induction intravenous induction Anesthetic Technique General; Post-Op Pain Plan IV analgesics; Blood Products T and S; Interpretive Services Informed Consent PARQ discussed with: patient, Procedures, Alternatives, Risks, and Questions discussed and Risk/benefit of anesthesia plan and blood product discussed Code status in OR Patients Code Status in OR: FULL 08/01/2014 3:48 PM documented in this encounter Miscellaneous Notes Ane airway standard - Ceci Thornton CRNA - 08/01/2014 11:26 AM PSTProcedure Reason for Intubation: For surgical procedure, Location Performed: OR , Patient was preoxyg enated Mask Ventilation Grade 1 - Ventilated by mask Rapid Sequence Induction: No Intubation Blade type: Burton , Blade size: 2, Atraumatic laryngoscopy: Atraumatic Laryngoscopy, Intub ation adjuncts: N/A , Laryngoscopic view: Grade I, Fiberoptics used: N/A , Number of Attempt s: 1, Positive for EtCO2: Yes, Breath sounds: Bilateral and equal ETT Ett Adult: Single-lumen cuffed ETT Size: 7.5 ETT secured with: adhesive tape Depth at Li p: 22 cm LMA Narrative Attending physically present Attending: LYNNE WHEATLEY Performed by MANJEET SHRESTHA MC/ANE PreOp Note - Stefanie Grimm NP - 07/31/2014 1:32 PM PST ROS Pertinent HPI: Pulmonary: Within Defined Limits except as noted below no cough no URI no shortness of br eath Pt. Has no asthma no COPD No dx of sleep apnea Risks factors for sleep apnea: Pt SNORE's loudly (louder than talking) Pt. being treated for high blood pressure Age>50, M killian gender and Neck circumference> 40 cm pt. at high risk of NAHUN Cardiovascular: Able to walk "several miles" Within Defined Limits except as noted below Fu nctional Capacity: Moderate - dyspnea on exertion, palpitations, chest pressure and syncope no CAD hypertension well c ontrolled Vascular: VASCULAR SYMPTOMS hyperlipidemia no pacemaker GI/Hepatic: Within Defined Limits except as noted below GERD Control: Well controlled No li shad disease no hepatitis : Within Defined Limits except as noted below renal failure (No renal problems) Other : Types: genitourinary malignancy Endo: Within Defined Limits except as noted below no Diabetes: Neurological: 2011-TIA , "mini stroke"-denies residual Within Defined limits except as not ed below Sign/Sx Hx of CVA Treatments: Treated w/medications no seizures psychiatric proble m depression Current Pain Level: Current pain level: 0 MS: No active musculoskeletal problems arthritis Type: osteoarthritis arthralgias Heme/Onc: No anemia, active bleeding, blood clotting issues. No history of malignancy. Mal ignancy: cancer, Location: Prostate, Metastasis: Skin: Within Defined Limits except as noted below No open wounds or sores No hx MRSA/VRE/Ac tive skin infection Physical Exam General: Patients general appearance: Healthy, Alert, No distress, Cooperative and Age appr opriate Head & Neck/Airway: NC/AT; nl appearing ears and nose. Neck ROM: full TM Distance:Normal Dentition: dentition is normal Hernandez: No Mallampati: IV Mouth Opening: > = 3 cm C-Spine: normal Neck Anatomy: Normal Jaw Protrusion: Normal, lower incisors can pr otrude past upper incisors Lung Exam: No respiratory distress. Normal breathing pattern. breath sounds normal Cardiac: No murmurs, gallops or rubs. Rhythm: regular Rate: normal Abdominal: General Findings: Nondistended Bowel Sounds: bowel sounds are normal Musculoskeletal: Findings: tone normal Neuro/Psych: Alert and appropriate; nl affect. alert Findings: No tremor, Alert, oriented to person, place, time and Normal affect Integument: No open rashes or lesions noted. - lesion, rash and open wounds Color: pink Turgor: turgor normal Implants: None, documented in this encounter Plan of Treatment Not on filedocumented as of this encounter Visit Diagnoses Not on filedocumented in this encounter Administered Medications + +--------+ + +------+------+ | Medication Order | MAR | Action | Dose | Rate | Site | | | Action | Date | | | | + +--------+ + +------+------+ | ceFAZolin (ANCEF) injection | Given | 08/01/20 | 2,000 mg | | | | intravenous, INTRAPROCEDURE PRN, | | 14 11:22 | | | | | Starting Erma 08/01/14 at 1122, | | AM PST | | | | | Until Erma 08/01/14 at 1503 | | | | | | + +--------+ + +------+------+ +---+---+ | | | +---+---+ + +-------+ +-------+---+---+ | ePHEDrine injection | Given | 08/01/20 | 10 mg | | | | intravenous, INTRAPROCEDURE PRN, | | 14 12:42 | | | | | Starting Erma 08/01/14 at 1242, | | PM PST | | | | | Until Erma 08/01/14 at 1503 | | | | | | + +-------+ +-------+---+---+ +---+---+ | | | +---+---+ + +-------+ +--------+---+---+ | fentaNYL citrate (PF) | Given | 08/01/20 | 50 mcg | | | | (SUBLIMAZE) injection | | 14 3:06 | | | | | INTRAPROCEDURE PRN, Starting Erma | | PM PST | | | | | 08/01/14 at 1100, Until Erma | | | | | | | 08/01/14 at 1503, sedation | | | | | | + +-------+ +--------+---+---+ +-------+ +---------+---+---+ | Given | 08/01/20 | 100 mcg | | | | | 14 11:47 | | | | | | AM PST | | | | +-------+ +---------+---+---+ | Given | 08/01/20 | 150 mcg | | | | | 14 11:00 | | | | | | AM PST | | | | +-------+ +---------+---+---+ +---+---+ | | | +---+---+ + +-------+ +--------+---+---+ | glycopyrrolate (WILMER) | Given | 08/01/20 | 0.3 mg | | | | injection INTRAPROCEDURE PRN, | | 14 2:46 | | | | | Starting Erma 08/01/14 at 1446, | | PM PST | | | | | Until Erma 08/01/14 at 1503 | | | | | | + +-------+ +--------+---+---+ +---+---+ | | | +---+---+ + + + +---+---+---+ | lactated ringers IV | given by | 08/01/20 | | | | | INTRAPROCEDURE CONTINUOUS PRN, | | 14 2:45 | | | | | Starting Erma 08/01/14 at 1035, | anesthes | PM PST | | | | | Until Erma 08/01/14 at 1503 | iology | | | | | + + + +---+---+---+ + + +---+---+---+ | given by anesthesiology | 08/01/20 | | | | | | 14 2:31 | | | | | | PM PST | | | | + + +---+---+---+ | given by anesthesiology | 08/01/20 | | | | | | 14 1:08 | | | | | | PM PST | | | | + + +---+---+---+ +---+---+ | | | +---+---+ + +-------+ +------+---+---+ | midazolam (VERSED) injection | Given | 08/01/20 | 2 mg | | | | INTRAPROCEDURE PRN, Starting Erma | | 14 10:52 | | | | | 08/01/14 at 1052, Until Erma | | AM PST | | | | | 08/01/14 at 1503, sedation | | | | | | + +-------+ +------+---+---+ +---+---+ | | | +---+---+ + + + +---+---+---+ | NaCl 0.9 % IV INTRAPROCEDURE | given by | 08/01/20 | | | | | CONTINUOUS PRN, Starting Erma | | 14 2:24 | | | | | 08/01/14 at 1123, Until Erma | anesthes | PM PST | | | | | 08/01/14 at 1503 | iology | | | | | + + + +---+---+---+ + + +---+---+---+ | given by anesthesiology | 08/01/20 | | | | | | 14 1:59 | | | | | | PM PST | | | | + + +---+---+---+ | given by anesthesiology | 08/01/20 | | | | | | 14 1:35 | | | | | | PM PST | | | | + + +---+---+---+ +---+---+ | | | +---+---+ + +-------+ +------+---+---+ | neostigmine (PROSTIGMIN) | Given | 08/01/20 | 1 mg | | | | injection intravenous, | | 14 2:46 | | | | | INTRAPROCEDURE PRN, Starting Erma | | PM PST | | | | | 08/01/14 at 1446, Until Erma | | | | | | | 08/01/14 at 1503 | | | | | | + +-------+ +------+---+---+ +---+---+ | | | +---+---+ + +-------+ +------+---+---+ | ondansetron (ZOFRAN) injection | Given | 08/01/20 | 4 mg | | | | INTRAPROCEDURE PRN, Starting Erma | | 14 1:58 | | | | | 08/01/14 at 1358, Until Erma | | PM PST | | | | | 08/01/14 at 1503 | | | | | | + +-------+ +------+---+---+ +---+---+ | | | +---+---+ + +-------+ +--------+---+---+ | propofol INTRAPROCEDURE PRN, | Given | 08/01/20 | 200 mg | | | | Starting Erma 08/01/14 at 1102, | | 14 11:02 | | | | | Until Erma 08/01/14 at 1503 | | AM PST | | | | + +-------+ +--------+---+---+ +---+---+ | | | +---+---+ + +-------+ +-------+---+---+ | rocuronium (ZEMURON) injection | Given | 08/01/20 | 10 mg | | | | INTRAPROCEDURE PRN, Starting Erma | | 14 2:08 | | | | | 08/01/14 at 1102, Until Erma | | PM PST | | | | | 08/01/14 at 1503, Neuromuscular | | | | | | | block | | | | | | + +-------+ +-------+---+---+ +-------+ +-------+---+---+ | Given | 08/01/20 | 10 mg | | | | | 14 1:17 | | | | | | PM PST | | | | +-------+ +-------+---+---+ | Given | 08/01/20 | 30 mg | | | | | 14 11:45 | | | | | | AM PST | | | | +-------+ +-------+---+---+ +---+---+ | | | +---+---+ + + + + +---+---+ | SUFentanil INF INTRAPROCEDURE | Rate/Dos | 08/01/20 | 0.3 | | | | CONTINUOUS PRN, Starting Erma | e Change | 14 1:55 | mcg/kg/h | | | | 08/01/14 at 1115, Until Erma | | PM PST | r | | | | 08/01/14 at 1503 | | | | | | + + + + +---+---+ + + + +---+---+ | Rate/Dose Change | 08/01/20 | 0.2 | | | | | 14 1:00 | mcg/kg/h | | | | | PM PST | r | | | + + + +---+---+ | Rate/Dose Change | 08/01/20 | 0.1 | | | | | 14 12:41 | mcg/kg/h | | | | | PM PST | r | | | + + + +---+---+ +---+---+ | | | +---+---+ documented in this encounter
--- OUTSIDE RECORDS SUMMARY | ~2020-06-06 | XMS | Encounter Summary ---
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 9:53 | | | | | First dose on Tue05/08/19 at | | PM PDT | | | | | 2100, Post-op/Phase II | | | | | | + +--------+ +-------+------+------+ +-------+ +-------+---+---+ | Given | 05/09/20 | [...] +---+---+ | | | +---+---+ + +-------+ +---------+---+---+ | bacitracin injection PRN, | Given | 05/08/20 | 50,000 | | | | Starting Tue05/08/19 at 1041, | | 19 10:41 | Units | | | | Intra-op | | AM PDT | | | | + +-------+ +---------+---+---+ +---+---+ | | | +---+---+ [...] HOURS PRN, Itching, | | | Starting e 05/08/19 at 1447, | | | Oral [...] | | TIMES DAILY, First dose on e | | AM PDT | | | [...] +---+---+ + +-------+ +--------+---+ + | lidocaine 1%-EPINEPHrine | Given | 05/08/20 | 10 mLs | | Surgical | | 1:100,000 injection PRN, | | 19 10:20 | | | Site | | Starting 05/08/19 at 1020, | | AM PDT | | | | | Intra-op | | | | | | + +-------+ +--------+---+ + +---+---+ | | | +---+---+ + +-------+ +-------+---+---+ | losartan (COZAAR) tablet 50 mg | Given | 05/11/20 | 50 mg | | | | 50 mg, Oral, DAILY, First dose | | 19 10:03 | | | | | on 05/08/19 at 1515, | | AM PDT | [...] PDT | | | | | Starting 05/08/19 at 1447, For | | | [...] | | | | 05/08/19 at 1515, Indication: | | | | [...] | Intravenous, CONTINUOUS, Starting | | | Tue05/08/19 at 0800, TKO. Use | | | [...]
--- OUTSIDE RECORDS SUMMARY | ~2020-06-06 | XMS | Encounter Summary ---
Demographics + + + | Address | NEED ADDRESS | | | [place] [address] | + + + | Home Phone | | + + + | Preferred Language | Unknown | + + + | Marital Status | Single | + + + | Catholic Affiliation | Unknown | + + + | Race | White | + + + | Ethnic Group | Not or | + + + Author + + + | Author | [facility] | | | and [place] | + + + | Organization | [facility] | | [...] [address] | ECON | [place] [address] | | + + + + + Care Team Providers + +------+ + | Care Club Attendant Name | Role | Phone | + +------+ + | Loi Frausto PA-C | PCP | | + +------+ + Reason for Visit + +--------+ + | Reason | Onset | Comments | | | Date | | + +--------+ + | Appointment | 03/07/ | | | | 2019 | | + +--------+ + Encounter Details +--------+ + + + + | Date | Type | Department | Care Team | Description | +--------+ + + + + | 03/07/ | Telephone | [facility] | Zeeshan Hawkins, | Appointment | | 2019 | | [address] | MD [address] | | | | | [place] | [place] | | | | | [address] | [address] | | | | | [phone] | | | +--------+ + + + [...] Telephone Encounter - Lina Schmitt CMA - 03/09/2019 9:39 AM PDTLeft call back message. Reason for call is regarding patients upcoming appointment on 03/13/2019 with labs prior. elephone Encounter - Lina Schmitt CMA - 03/07/2019 9:32 AM PDTLeft call back message. Reason for call is r egarding patients upcoming appointment on 03/13/2019 with labs prior. Blood work has to be do ne first thing in the morning and fasting. documented in this e ncounter Plan of Treatment Not on filedocumented as of this encounter Visit Diagnoses Not on filedocumented in this encounter"
--- OUTSIDE RECORDS SUMMARY | ~2020-06-06 | XMS | Encounter Summary ---
Demographics + + + | Address | NEED ADDRESS | | | [place] [address] | + + + | Home Phone | | + + + | Preferred Language | Unknown | + + + | Marital Status | Single | + + + | Christian Affiliation | Unknown | + + + [...] [address] | ECON | [place] [address] | | + + + + + Care Team Providers + +------+ + | Care Cvor Nurse Name | Role | Phone | + +------+ + | Aryan Grossman MD | PCP | | + +------+ + Reason for Visit + + + | Reason | Comments | + + + | Arm Pain | r arm pain x 2 months, has progressively worsened over 2 months | + + + Encounter Details +--------+ + + + + | Date | Type | Department | Care Team | Description | +--------+ + + + + | 12/07/ | Emergency | [facility] | Horacio Cabrera, | Elbow pain, chronic | | 2013 | | [facility] | MD [address] | (Primary Dx); | | | | CENTER [address] | [place] | Chronic shoulder | | | | [place] | [address] | pain | | | | [address] | | | | | | [phone] | | | +--------+ + + + + Social History + +-------+ +--------+------+ | Tobacco Use | Types | Packs/Day | Years | Date | | | | | Used | | + +-------+ +--------+------+ | Current Every Day | | 1 | 24 | | | Smoker | | | | | + +-------+ +--------+------+ + + | Tobacco Cessation: Ready to Quit: No | + + + + +---------+ + [...] + + + | Blood Pressure | 161/106 | 12/07/2013 4:15 PM | | | | | PDT | | + + + + + | Pulse | 110 | 12/07/2013 4:15 PM | | | | | PDT | | + + + + + | Temperature | 36.4 C (97.6 F) | 12/07/2013 3:07 PM | | | | | PDT | | + + + + + | Respiratory Rate | 18 | 12/07/2013 4:15 PM | | | | | PDT | | + + + + + | Oxygen Saturation | 97% | 12/07/2013 4:15 PM | | | | | PDT | | + + + + + | Inhaled Oxygen | - | - | | | Concentration | | | | + + + + + | Weight | 90.7 kg (200 lb) | 12/07/2013 3:07 PM | | | | | PDT | | + + + + + | Height | 175.3 cm (5' 9") | 12/07/2013 3:07 PM | | | | | PDT | | + + + + + | Body Mass Index | 29.53 | 12/07/2013 3:07 PM | | | | | PDT | | + + + + + documented in this encounter Discharge Instructions AttachmentsThe following attachments cannot be sent through Care Everywhere.ARTHRALGIA (YUE SPARROW)documented in this encounter Medications at Time of [...] documented as of this encounter ED Notes Elizabeth Chavez RN - 12/07/2013 5:51 PM PDTPatients questions answered, patient verbaliz ed understanding Horacio Hobson MD - 12/07/2013 3:16 PM PDT eMERGENCY dEPARTMENT eNCOUnter CHIEF COMPLAINT Chief Complaint Patient presents with Arm Pain r arm pain x 2 months, has progressively worsened over 2 months HPI Mani Garcia is a 48 y.o. male who presents with right shoulder and right elbow pain. H e states he was fired from his job yesterday because missing a lot of work he cut his right elbow and right shoulder at the scene. Today he decided to come to the emergency department for x-rays for evaluation. He states the pain has been there for approximately 2-3 months, he has no history of falls or trauma. He states his shoulder hurts all the time as does hi s right elbow he states they are worn out. He's had no paresthesias or weakness or other as sociated symptoms. PAST MEDICAL HISTORY Past Medical History Diagnosis Date Hypertension GERD (gastroesophageal reflux disease) Stroke (HCC) SURGICAL HISTORY Past Surgical History Procedure Date Back surgery Orthopedic surgery r hand CURRENT MEDICATIONS Previous Medications ASPIRIN (ASPIRIN ADULT LOW STRENGTH) 81 MG EC TABLET Take 1 tablet by mouth Daily. KETOCONAZOLE (NIZORAL) 2% CREAM Apply to scalp area daily to twice daily for up to 3 we eks ALLERGIES No Known Allergies FAMILY HISTORY No family history on file. 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 HENT: Normocephalic, Atraumatic, Oropharynx moist, No oral exudates, Nose normal. Neck- No rmal range of motion, No tenderness, Supple, No stridor. Eyes: PERRL, EOMI, Conjunctiva normal, No discharge. Respiratory: Normal breath sounds, No respiratory distress, No wheezing, No chest tenderne ss. Cardiovascular: Normal heart rate, Normal rhythm, No murmurs, No rubs, No gallops. GI: nondistended : not done Musculoskeletal: Intact distal pulses, No edema, there is no erythema or joint swelling ov er the elbow or shoulder, there is no bruising or evidence of trauma, there is no obvious de formity. ,Integument: Warm, Dry, No erythema, No rash. RADIOLOGY Right shoulder x-ray was unremarkable for any fracture or dislocation Right elbow x-ray was unremarkable for any fracture or dislocation ED COURSE & MEDICAL DECISION MAKING Last Set of Vital Signs: Temp: 36.4 C (97.6 F) Pulse: 112 Resp: 16 SpO2: 96 % Pertinent Labs, Nurses Note, & Imaging studies reviewed. (See chart for details) In summary this is a 48-year-old male with chronic right shoulder and right elbow pain. X- rays are negative for any acute injury. There is no evidence of an infectious process or ot her life or limb threatening process causing his symptoms. It's gone on for several months. He was referred on to orthopedics for further evaluation per his request. FINAL IMPRESSION Chronic shoulder and elbow pain LABS FROM THIS VISIT OR MOST RECENT ER VISIT: Results for orders placed during the hospital encounter of 11/30/13 CBC WITH DIFFERENTIAL Component Value Range WBC 8.5 4.0 - 11.0 K/uL RBC 4.83 4.30 - 5.70 M/uL Hgb 17.1 13.5 - 18.0 gm/dL Hct 52.0 (*) 40.0 - 51.0 % MCV 101.6 (*) 83.0 - 101.0 fL MCH 34.3 28.0 - 35.0 pg MCHC 32.9 32.0 - 36.0 g/dL RDW 12.8 <15.0 % Platelet Count 291 140 - 440 K/uL % Neutrophils 72.2 45 - 75 % % Lymphocytes 20.0 20 - 45 % % Monocytes 5.8 4 - 12 % % Eosinophils 0.9 0 - 5 % % Basophils 1.1 (*) 0 - 1 % Absolute Neutrophils 6.1 1.5 - 6.6 K/uL Absolute Lymphocytes 1.7 0.6 - 3.2 K/uL Absolute Monocytes 0.5 0.0 - 1.0 K/uL Absolute Eosinophils 0.1 0.0 - 0.4 K/uL Absolute Basophils 0.1 0.0 - 0.1 K/uL COMPREHENSIVE METABOLIC PANEL Component Value Range GLUCOSE 105 70 - 109 mg/dL CALCIUM 8.7 8.3 - 10.5 mg/dL ALK PHOS 85 40 - 110 IU/L AST 33 10 - 42 IU/L ALT 26 6 - 45 IU/L BILIRUBIN TOTAL 1.0 0.2 - 1.0 mg/dL Total protein 6.7 6.0 - 7.8 gm/dL ALBUMIN 3.8 3.2 - 5.0 gm/dL BUN 12 7 - 18 mg/dL Creatinine, Serum 0.86 0.60 - 1.30 mg/dL Estimated GFR >60 >60 mL/min/A BUN/Creatinine Ratio 14.0 12 - 20 NA 138 136 - 149 mEq/L K 3.7 3.5 - 5.1 mEq/l CL 103 98 - 109 mEq/l CO2 26 24 - 31 mEq/L ANION GAP 12.7 6.0 - 17.0 LIPID PROFILE Component Value Range Triglycerides 86 35 - 160 mg/dL CHOLESTEROL 156 150 - 200 mg/dL HDL 71 (*) 27 - 67 mg/dL LDL, Calculated 68 <130 mg/dL Chol/HDL Ratio 2.2 TSH Component Value Range TSH 0.90 0.34 - 5.60 uIU/mL PSA, SCREEN Component Value Range PSA 75.46 (*) 0.00 - 4.00 ng/mL C-REACTIVE PROTEIN, HIGH SENSITIVITY Component Value Range CRP, High Sensitive 0.9 0.0 - 3.0 mg/L URINALYSIS WITH MICROSCOPIC IF INDICATED Component Value Range COLLECTION METHOD 1 UNKNOWN COLOR YELLOW CLARITY CLEAR GLUCOSE UA NEGATIVE NEGATIVE mg/dL BILIRUBIN UA NEGATIVE NEGATIVE KETONES UA NEGATIVE NEGATIVE Specific [place] 1.015 1.001 - 1.030 BLOOD UA NEGATIVE NEGATIVE PH UA 8.5 (*) 5.0 - 8.0 PROTEIN UA 30 NEGATIVE mg/dL UROBILINOGEN UA NORMAL NORMAL EU/dL NITRITE UA NEGATIVE NEGATIVE LEUKOCYTES ESTERASE UA NEGATIVE NEGATIVE Follow-up Information Schedule an appointment as soon as possible for a visit with Christian Santana MD. Contact information: [address] [place] [phone] Discharge References/Attachments ARTHRALGIA (PERSIAN) Horacio Cabrera MD 12/07/13 1703 document ed in this encounter Miscellaneous Notes ED Triage Notes - Elizabeth Chavez RN - 12/07/2013 3:06 PM PDTR arm pain for 2 months, pr ogressively gotten worse documented in this encounter Plan of Treatment Not on filedocumented as of this encounter Procedures + +--------+ + + + | Procedure Name | Priori | Date/Time | Associated Diagnosis | Comments | | | ty | | | | + +--------+ + + + | XR SHOULDER RIGHT 2 | STAT | 12/07/2013 | | Results for this | | + VW | | 4:26 PM | | procedure are in the | | | | PDT | | results section. | + +--------+ + + + | XR ELBOW RIGHT 3 + | STAT | 12/07/2013 | | Results for this | | VW | | 4:26 PM | | procedure are in the | | | | PDT | | results section. | + +--------+ + + + documented in this encounter Results XR Elbow Right 3 + Vw (12/07/2013 4:26 PM PDT) + + | Specimen | + + | | + + + + + | Narrative | Performed At | + + + | XR ELBOW RIGHT 3 + VW 12/07/2013 4:26 PM HISTORY: ARM PAIN. | MISCELANIOUS | | COMPARISON: None. FINDINGS: There are no acute osseous | LAB | | abnormalities. No significant degenerative changes are seen. Bone | | | mineralization is normal. No significant elbow joint effusion is | | | seen. Soft tissue structures are unremarkable. IMPRESSION - NO | | | ACUTE FINDINGS. Dictated and Signed by: Horace Galvez MD | | | Electronically signed: 12/07/2013 5:02 PM | | + + + + + | Procedure Note | + + | Frank, Rad Results In - 12/07/2013 5:05 PM PDT XR ELBOW RIGHT 3 + VW 12/07/2013 4:26 PM | | | | HISTORY: ARM PAIN. | | | | COMPARISON: None. | | | | FINDINGS: | | There are no acute osseous abnormalities. No significant degenerative changes | | are seen. Bone mineralization is normal. No significant elbow joint effusion is | | seen. Soft tissue structures are unremarkable. | | | | IMPRESSION - | | NO ACUTE FINDINGS. | | | | Dictated and Signed by: Horace Galvez MD | | Electronically signed: 12/07/2013 5:02 PM | + + + +---------+ + + | Performing | Address | City/State/Zipcode | Phone Number | | Organization | | | | + +---------+ + + | [facility] | | | [phone] | + +---------+ + + | [facility] | | | [phone] | + +---------+ + + XR Shoulder Right 2 + Vw (12/07/2013 4:26 PM PDT) + + | Specimen | + + | | + + + + + | Narrative | Performed At | + + + | XR SHOULDER RIGHT 2 + VW 12/07/2013 4:26 PM HISTORY: ARM PAIN. | MISCELANIOUS | | COMPARISON: None. FINDINGS: There are no acute osseous | LAB | | abnormalities. The acromioclavicular joint demonstrates mild | | | degenerative changes with hypertrophy. The glenohumeral joint has | | | mild degenerative changes with osteophytosis. There is a degenerative | | | cyst in the inferior glenoid.. Visualized chest shows an incidental | | | azygos fissure and lobe with no acute findings otherwise. | | | IMPRESSION - NO ACUTE FINDINGS, MILD DEGENERATIVE CHANGES. | | | Dictated and Signed by: Horace Galvez MD Electronically signed: | | | 12/07/2013 5:00 PM | | + + + + + | Procedure Note | + + | Frank, Rad Results In - 12/07/2013 5:03 PM PDT XR SHOULDER RIGHT 2 + VW 12/07/2013 4:26 | | PMHISTORY: ARM PAIN.COMPARISON: None.FINDINGS:There are no acute osseous abnormalities. | | The acromioclavicular jointdemonstrates mild degenerative changes with hypertrophy. The | | glenohumeral jointhas mild degenerative changes with osteophytosis. There is a | | degenerative cystin the inferior glenoid.. Visualized chest shows an incidental azygos | | fissureand lobe with no acute findings otherwise.IMPRESSION -NO ACUTE FINDINGS, MILD | | DEGENERATIVE CHANGES.Dictated and Signed by: Horace Galvez MD Electronically signed: | | 12/07/2013 5:00 PM | |demonstrates mild degenerative changes with hypertrophy. The glenohumeral joint | |has mild degenerative changes with osteophytosis. There is a degenerative cyst | |in the inferior glenoid.. Visualized chest shows an incidental azygos fissure | |and lobe with no acute findings otherwise. | | | |IMPRESSION - | |NO ACUTE FINDINGS, MILD DEGENERATIVE CHANGES. | | | |Dictated and Signed by: Horace Galvez MD | | Electronically signed: 12/07/2013 5:00 PM | + + + +---------+ + + | Performing | Address | City/State/Zipcode | Phone Number | | Organization | | | | + +---------+ + + | [facility] | | | [phone] | + +---------+ + + | [facility] | | | [phone] | + +---------+ + + documented in this encounter Visit Diagnoses + + | Diagnosis | + + | Elbow pain, chronic - Primary Pain in joint, upper arm | + + | Chronic shoulder pain Pain in joint, shoulder region | + + documented in this encounter
--- OUTSIDE RECORDS SUMMARY | ~2020-06-06 | XMS | Encounter Summary ---
Demographics + + + | Address | NEED ADDRESS | | | [place] [address] | + + + | Home Phone [...] | Hector Garcia | ECON | [place] [address] | | + + + + + Care Team Providers + +------+ + | Care Cutting Room Supervisor Name | Role | Phone | [...] | Specialty | Physical | Diagnoses | Cheo, | Antony Grider | | | Services | Medicine and | Tendonitis | Antony Powell MD | Jaden Powell MD [address] | | | Required | Rehabilitatio | of both | [address] | | | | n | rotator | [address] | [place], | | | | | cuffs | [place], | [place] [address] | | | | | Procedures | [place] [address] | Phone: | | | | | [place] | Phone: | [phone] | | | | | ARTHROCENTES | [phone] | Fax: | | | | | IS | Fax: | [phone] | | | | | ASPIR&/INJ | [phone] | | | | | | MAJOR | | | | | | | JT/BURSA W/O | | | | | | | US [place] | | | | | | | METHYLPREDNI | | | | | | | SOLONE 40 MG | | | | | | | INJ DOS | | | | | | | 10/09/18 | | | +--------+ + + + + + Evaluate & Treat (Routine) +--------+ + + + + + | Status | Reason | Specialty | Diagnoses / | Referred By | Referred To | | | | | Procedures | Contact | Contact | +--------+ + + + + + | Closed | Specialty | Physical | Diagnoses | Grider, | [facility] | | | Services | Therapy | Chronic | Antony Powell MD | PHYSICAL | | | Required | | right | [address] | THERAPY - | | | | | shoulder | [address] | [place] | | | | | pain | [place], | [facility] | | | | | Cervicalgia | [place] [address] | [address] | | | | | Tendonitis | Phone: | ST | | | | | of both | [phone] | [facility] | | | | | rotator | Fax: | [place], [place] | | | | | cuffs | [phone] | [address] | | | | | Procedures | | Phone: | | | | | [place] PHYSICAL | | | | | | | THERAPY | | Fax: | | | | | EVALUATION | | | | | | | LOW COMPLEX | | | | | | | 20 MINS SD | | | | | | | PHYSICAL | | | | | | | THERAPY | | | | | | | EVALUATION | | | | | | | MOD COMPLEX | | | | | | | 30 MINS SD | | | | | | | PHYSICAL | | | | | | | THERAPY | | | | | | | EVALUATION | | | | | | | HIGH COMPLEX | | | | | | | 45 MINS SD | | | | | | | PHYSICAL | | | | | | | THERAPY | | | | | | | RE-EVAL EST | | | | | | | PLAN CARE 20 | | | | | | | MINS him | | | | | | | 09/12 | | | +--------+ + + + + + Reason for Visit + + + | Reason | Comments | + + + | Follow-up | neck pain/labs/PT follow up | + + + Encounter Details +--------+---------+ + + + | Date | Type | Department | Care Team | Description | +--------+---------+ + + + | 08/30/ | Office | [facility] | Antony Grider, | Chronic pain of both | | 2018 | Visit | PHYSIATRY [address] | MD [address] | shoulders (Primary | | | | [address] | [place] | Dx); Chronic right | | | | [place] | [address] | shoulder pain; | | | | [address] | | Cervicalgia; | | | | [phone] | | Tendonitis of both | | | | | | rotator cuffs | +--------+---------+ + + + Social History [...] + + + | Blood Pressure | 139/96 | 08/30/2018 7:59 AM | | | | | PST | | + + + + + | Pulse | 89 | 08/30/2018 7:59 AM | | | [...] + + + + | Weight | 84.8 kg (187 lb) | 08/30/2018 7:59 AM | | | | | PST | | + + + + + | Height | 175.3 cm (5' 9") | 08/30/2018 7:59 AM | | | | | PST | | + + + + + | Body Mass Index | 27.62 | 08/30/2018 7:59 AM | | | | | PST | | + + + + + documented in this encounter Patient Instructions Patient Instructions Yamila Jimenez RN - 08/30/2018 8:00 AM [facility] right shoulder xray has been ordered for you today A referral for shoulder injections was placed today, we will call you once approved by estelle white. A new physical therapy referral was placed today for [facility] . The p rakan number is: [phone]- 8 :38 AM PST documented in this encounter Progress Notes Antony Grider MD - 08/30/2018 8:00 AM PSTFormatting of this note might be different fro m the original. Antony Grider MD [address] [facility], [address] [place] [address] FAX: PHYSICAL MEDICINE AND REHABILITATION H&P CHIEF COMPLAINT: Chief Complaint Patient presents with Follow-up neck pain/labs/PT follow up HISTORY OF PRESENT ILLNESS: Mani Garcia is a 53 y.o. male being seen today in follow-up for complaints of neck pain . Mani Garcia was last seen on 06/22/2018. Previously it was recommended that he part icipate in physical therapy for strengthening and treatment of cervical and radicular sympto ms and complete lab testing to evaluate for muscle breakdown. He reports that he has not st arted PT yet as he has not heard from them. He did have his labs drawn with results on file . Mani Garcia does have a history of metastatic prostate cancer. Overall Mani Garcia reports that his symptoms are worsening due to the cold weather. Do hazel Garcia rates the pain as moderate to severe. Mani Garcia describes the pain as aching, he reports most of his pain is down his right arm. His symptoms worsen with lifting his right arm over his head. His symptoms improve with rest, staying indoors where it's wa rm. Mani Garcia does describe numbness and tingling of the right hand. He does repor t weakness of the both hands. He does not have bowel and bladder dysfunction. He does not have saddle anesthesia. Treatments for these complaints have included. Medications. Mani Garcia is currently t aking Tylenol, Cymbalta, and Flexeril for treatment of pain. Mani Garcia reports he does not notice a difference in his symptoms even with medication. Mani Garcia reports star ting Gabapentin about a week ago, he has not noticed a difference in symptoms yet. Mani Garcia's medications, allergies, past medical, surgical, social and family histori es were reviewed and updated as appropriate. He reports bilateral shoulder pain radiating into his upper arms. The shoulder pain is con stant and dull in quality. He reports pain is from neck, shoulders, and upper arms. Pain i s worse on the right. Pain is increased with shoulder abduction and forward flexion. Pain is moderate in intensity. His shoulder pain has been present for months. He reports that h e considers his neck and shoulders the same thing. He denies locking or clicking in the michael ulders. He reports increased pain when lying on his sides. He reports that once he lifts h is arms above 90 degrees his shoulder pain gets much worse. Mani Garcia has tongue thrusting movements. They have been presence since the first ti me he was seen by me. He reports that he has been thrusting his tongue since he was a child . He reports that he doesn't realize he is doing it. He reports that people have asked him about it since he was in grade school. He reports that the tongue thrusting has not been w orse over time. He reports that the tongue thrusting has had no change with use of medicati ons. He reports taking trazodone for more than one year. He denies any worsening of tongue thrusting with the use of trazodone. He has started gabapentin. He has started the dose low, only taking 300 mg once per day. He denies side effects to the medication. He denies benefit at this low dose. He is planni ng to taper up as directed to 300 mg three times daily. CURRENT MEDICATIONS: Current Outpatient Prescriptions Medication Sig [...] ALLERGIES: No Known Allergies REVIEW OF SYSTEMS: Review of Systems Gastrointestinal: Negative. Musculoskeletal: Positive for joint pain, myalgias and neck pain. Skin: Negative. Endo/Heme/Allergies: Negative. GENERALLY: No fever, no night sweats, no [...] rheumatoid arthritis. PHYSICAL EXAMINATION: Blood pressure (!) 139/96, pulse 89, height 1.753 m (5' 9"), weight 84.8 kg (187 lb). Body mass index is 27.62 kg/m. Vitals: 08/30/18 0759 BP: (!) 139/96 Pulse: 89 PainSc: 7 GENERAL: The patient is well developed and well nourished. He does not appear uncomfortabl e when seated. HEENT: Normocephalic and atraumatic. Normal sclerae without icterus. NECK (ANTERIOR): There is no apparent cervical lymphadenopathy or thyromegaly. PULMONARY: The patient is in no acute respiratory distress with unlabored respirations. CARDIOVASCULAR: Regular rate and rhythm. There is not lower extremity edema. ABDOMEN: Non-distended. SKIN: Limited skin exam shows no significant rashes or lesions. There are not scars in the shoulder region. NEUROLOGIC: The patient is awake, alert, and oriented. He follows simple and complex commands. His speech is fluent. He comprehends speech well. He has no apparent deficits with short or cultured marble products maker memory. The cranial nerves appear grossly intact. Sensory exam: he has intact sensation in both upper extremities but he reports subjective s ensory changes in both hands, non-dermatomal in pattern. MOTOR EXAM: (5 IS NORMAL) * Indicates pain limited MUSCLE/ MOVEMENT: RIGHT LEFT Deltoids 5 5 Biceps 5 5 Triceps 4+ 4+ Wrist Flexion 5 5 Wrist Extension 5 5 Finger Abduction 5 5 Pottery Machine Operator Strength 5 5 Hip Flexion 5 5 Hip Extension 5 5 Knee Flexion 5 5 Knee Extension 5 5 Extensor Hallicus Longus 5 5 REFLEX: RIGHT LEFT BICEPS 2+ 2+ BRACHIORADIALIS 2+ 2+ TRICEPS 2+ 2+ PATELLAR 2+ 2+ ACHILLES 2+ 2+ MUSCULOSKELETAL : The patient localized the majority of the pain to bilateral shoulders, ne ck and arms region. There was no redness, effusion, warmth or joint line tenderness in the knees or ankles. Shoulder abduction 5/5 Right arm reproduction shoulder and upper arm pain with external rotation against resistanc e Full cans and empty cans test positive on the right, negative on the left DATABASE: Cervical MRI competed 11/29/20008 was reviewed personally by me in detail during today's visi t. I concur with the results as reported by the Radiologist. ASSESSMENT: 1. Chronic pain of both shoulders 2. Chronic right shoulder pain 3. Cervicalgia 4. Tendonitis of both rotator cuffs PLAN: 1. Today we discussed the results of Mani Garcia's lab results in detail. He was advis ed that all his labs have come back normal except the myoglobin result of 89. This result i s not extremely high and does necessarily correlate to the symptoms he is experiencing. He has relatively normal strength on exam today, no concern from proximal muscle weakness. When isolating his reported pain and weakness on exam and clinical presentation, he is prim arily complaining about shoulder pathology. A majority of his symptoms at this time correla te with rotator cuff pathology. 2. Today we discussed medications in detail. It's noted that Mani Garcia has uncontro llable movements of his tongue and he is also taking medication Trazodone. He was advised t hat Trazodone can cause a side effect of tardive dyskinesia. Mani Garcia states hes had these uncontrollable movements with his tongue his whole life and has not gotten worse sinc e being on Trazodone. 3. Today we addressed his concerns of bilateral shoulder and upper arm pain, worse on the r ight. On exam it's noted that there is a possibility he may be experiencing pain from his ro tator cuff. We discussed that he likely has bilateral rotator cuff tendonitis versus tears causing his shoulder and upper arm pain. 4. Mani Garcia will be scheduled to complete a bilateral shoulder x-rays. 5. Mani Garcia will return to the clinic for bilateral shoulder subacromial steroid in jections in effort to reduce pain, improve function, improve his ability to participate in t herapy. 6. Mani Garcia was advised that we are placing a new referral for physical therapy toda y to go to [facility] in [place]. The phone number was given to Mani Garcia to call and schedule his initial evaluation. Treat shoulers with rhomboid strenthening. A new physical therapy order will be placed today to treat bilateral Rotator cuff tendonitis 7. Today we discussed that I will recommend to PCP Loi Frausto that Mani Garcia co ntinue tapering up on his medication Gabapentin with close monitoring. And today's office vi sit note will be faxed to Mani Garcia's PCP. 8. Mani Garcia will return to clinic for scheduled shoulder injections. If shoulder pa in persists beyond injection and PT, future considerations include shoulder MRI (starting wi th the right) and surgical consultation. I spent 45 minutes in visit with Mani Garcia today with the majority of time spent coun selling the patient on his diagnosis, options for his care, and coordinating his care. I, Antony Grider MD personally performed the services described in this documentation, as scribed by in my presence, Yamila Jimenez RN and are both accurate and complete. Antony Grider MD - 08/30/2018 documented in this en counter Plan of Treatment + + +--------+ + + | Name | Type | Priori | Associated Diagnoses | Order Schedule | | | | ty | | | + + +--------+ + + | Physical Therapy - | Outpatient | Routin | Chronic right | Ordered: 08/30/2018 | | Ambulatory Referral | Referral | e | shoulder pain | | | | | | Cervicalgia | | | | | | Tendonitis of both | | | | | | rotator cuffs | | + + +--------+ + + | * [facility] | Outpatient | Routin | Tendonitis of both | Ordered: 08/30/2018 | | Physiatry - AMB | Referral | e | rotator cuffs | | | Referral | | | | | + + +--------+ + + documented as of this encounter Results XR Shoulder Right 2 + Vw (08/30/2018 8:59 AM PST) + + | Specimen | + + | | + + + + + | Narrative | Performed At | + + + | CLINICAL INFORMATION: right shoulder pain. COMPARISON: | [facility] | | 12/07/2013. FINDINGS: 3 views of the right shoulder. Bones: | | | No acute fracture or dislocation. No periostitis or erosion. | | | Joints: Mild AC joint arthrosis. Small osteophyte formation at the | | | inferior glenohumeral joint. The glenohumeral joint space is | | | otherwise preserved and subchondral surfaces appear smooth. Soft | | | tissue: Visualized right lung is clear. IMPRESSION - Mild | | | acromioclavicular and minimal glenohumeral degenerative changes. | | | Dictated and Signed by: Melchor Marie MD Electronically signed: | | | 08/30/2018 9:51 AM | | + + + + + | Procedure Note | + + | Frank, Rad Results In - 08/30/2018 9:54 AM PST CLINICAL INFORMATION: right shoulder | | pain.COMPARISON: 12/07/2013.FINDINGS: 3 views of the right shoulder.Bones: No acute | | fracture or dislocation. No periostitis or erosion.Joints: Mild AC joint arthrosis. | | Small osteophyte formation at the inferiorglenohumeral joint. The glenohumeral joint | | space is otherwise preserved andsubchondral surfaces appear smooth.Soft tissue: | | Visualized right lung is clear.IMPRESSION - Mild acromioclavicular and minimal | | glenohumeral degenerativechanges.Dictated and Signed by: Melchor Marie MD | | Electronically signed: 08/30/2018 9:51 AM | | | |Joints: Mild AC joint arthrosis. Small osteophyte formation at the inferior | |glenohumeral joint. The glenohumeral joint space is otherwise preserved and | |subchondral surfaces appear smooth. | | | |Soft tissue: Visualized right lung is clear. | | | |IMPRESSION - Mild acromioclavicular and minimal glenohumeral degenerative | |changes. | | | |Dictated and Signed by: Melchor Marie MD | | Electronically signed: 08/30/2018 9:51 AM | + + + +---------+ + + | Performing | Address | City/State/Zipcode | Phone Number | | Organization | | | | + +---------+ + + | [facility] | | | | + +---------+ + + documented in this encounter Visit Diagnoses + + | Diagnosis | + + | Chronic pain of both shoulders - Primary Pain in joint, shoulder region | + + | Chronic right shoulder pain Pain in joint, shoulder region | + + | Cervicalgia | + + | Tendonitis of both rotator cuffs | + + documented in this encounter
--- OUTSIDE RECORDS SUMMARY | ~2020-06-06 | XMS | Encounter Summary ---
Demographics + + + | Address | NEED ADDRESS | | | [place] [address] | + + + | Home Phone [...] Hector Garcia | ECON | [place] [address] | | + + + + + Care Team Providers + +------+ + | Care Quarry Worker Name | Role | Phone | + +------+ + | Loi Frausto PA-C | PCP | | + +------+ + Reason for Visit + + + | Reason | Comments | + + + | Pain Management | | + + + Encounter Details +--------+ + + + + | Date | Type | Department | Care Team | Description | +--------+ + + + + | 05/08/ | Documentati | [facility] | Samantha Davis CMA | Pain Management | | 2019 | on | NEUROSURGERY [address] | | | | | | [address] | | | | | | [place] | | | | | | [phone] | | | | | | [phone] | | | +--------+ + + + [...] documented as of this encounter Progress Notes Pippa Gann RN - 05/08/2019 1:47 PM PDTpreop MEDD=0 Patient discharged to [facility] 05/11/19 D/C [id number] Oxycodone 5mg 2.5-15mg every 4 hrs prn Samantha Basilio CMA - 1:47 PM PDT The following information was obtained from https://secureaccess.[employer].gov/myAccess/saw/select .do on 05/08/19 [place] ELECTRIC KNIFE OPERATOR was checked on 05/08/19 and no medications have been dispensed. Outpatient Morphine Equivalent Daily Dose (MEDD) None documented in this enco unter Plan of Treatment Not on filedocumented as of this encounter Visit Diagnoses Not on filedocumented in this encounter"
--- OUTSIDE RECORDS SUMMARY | ~2020-06-06 | XMS | Encounter Summary ---
Demographics + + + | Address | [address] | | | [place] [address] | + + + | Home Phone | | + + + | Preferred Language | Unknown | + + + | Marital Status | Single | + + + | Restoration Affiliation | CHR | + + + | Race | White | + + + | Ethnic Group | Not or | + + + Author + + + | Author | [facility] | + + + | Organization | [facility] | + + + | Address | Unknown | + + + | Phone | Unavailable | + + + Support + + +---------+ + | Name | Relationship | Address | Phone | + + +---------+ + | Servando Boyer | ECON | Unknown | | + + +---------+ + Care Team Providers + +------+ + | Care Purchaser Name | Role | Phone | + +------+ + | Aryan Grossman MD | PCP | | + +------+ + Encounter Details +--------+------+ + + + | Date | Type | Department | Care Team | Description | +--------+------+ + + + | 07/09/ | Lab | Laboratory at [facility] | | Prostate cancer | | 2013 | | [address] | | ([facility]) | | | | [facility] | | | | | | and Healing, | | | | | | [address] | | | | | | [place], [place] | | | | | | [address] | | | | | | [phone] | | | +--------+------+ + + + [...] | [facility] PSA TOTAL, | Routin | 07/09/2014 | Prostate cancer | Results for this | | MONITORING | e | 1:09 PM | (HCC) | procedure are in the | | | | PDT | | results section. | + +--------+ + + + documented in this encounter Results [facility] PSA TOTAL, MONITORING (07/09/2014 1:09 PM PDT) + + + + + + | Component | Value | Ref Range | Performed | Pathologist | | | | | At | Signature | + + + + + + | PSA TOTAL | 22.07Comment: PSA | ng/mL | [facility] | | | MONITORING | values following | | LABORATORY | | | | treatment for prostate | | SERVICES, | | | | cancer are dependent | | [facility]ENTER FOR | | | | upon treatment modality. | | HEALTH + | | | | | | HEALING | | + + + + + + + + | Specimen | + + | Blood - Blood | + + + + + + + | Performing | Address | City/State/Zipcode | Phone Number | | Organization | | | | + + + + + | [facility] | [address] | [place] [address] | | | SERVICES, [facility] | | | | | HEALTH + HEALING | | | | + + + + + documented in this encounter Visit Diagnoses + + | Diagnosis | + + | Prostate cancer (HCC) Malignant neoplasm of prostate | + + documented in this encounter"
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
--- OUTSIDE RECORDS SUMMARY | ~2020-06-06 | XMS | Encounter Summary ---
Demographics + + + | Address | NEED ADDRESS | | | [place] [address] | + + + | Home Phone | | + + + | Preferred Language | Unknown | + + + | Marital Status | Single | + + + | Bahai Affiliation | Unknown | + + + [...] Hector Garcia | ECON | [place] [address] | | + + + + + Care Team Providers + +------+ + | Care Manager Security Name | Role | Phone | + +------+ + PCP | Unavailable | + +------+ + Encounter Details +--------+ + + + + | Date | Type | Department | Care Team | Description | +--------+ + + + + | 06/19/ | Hospital | [facility] | | | | 2002 | Encounter | [facility] | | | | | | [address] | | | | | | [place] | | | | | | [address] | | | | | | [phone] | | | +--------+ + + + [...]
--- OUTSIDE RECORDS SUMMARY | ~2020-06-06 | XMS | Encounter Summary ---
Demographics + + + | Address | NEED ADDRESS | | | [place] [address] | + + + | Home Phone [...] Hector Garcia | ECON | [place] [address] | | + + + + + Care Team Providers + +------+ + | Care Maintenance Mgr Name | Role | Phone | + +------+ + | Loi Frausto PA-C | PCP | | + +------+ + Encounter Details +--------+ + + + + | Date | Type | Department | Care Team | Description | +--------+ + + + + | 10/05/ | Abstract | [facility] [place] | Antony Grider, | | | 2017 | | PHYSIATRY [address] | MD [address] | | | | | [address] | [place], [place] | | | | | [place], [place] | [address] | | | | | [address] | | | | | | [phone] | | | +--------+ + + + [...]
--- OUTSIDE RECORDS SUMMARY | ~2020-06-06 | XMS | Encounter Summary ---
Demographics + + + | Address | [address] | | | [place] [address] | + + + | Home Phone | | + + + | Preferred Language | Unknown | + + + | Marital Status | Single | + + + | Christianity Affiliation | CHR | + + + | Race | White | + + + | Ethnic Group | Not or | + + + Author + + + | Author | [facility] | + + + | Organization | [facility] | + + + | Address | Unknown | + + + | Phone | Unavailable | + + + Support + + +---------+ + | Name | Relationship | Address | Phone | + + +---------+ + | Servando Boyer | ECON | Unknown | | + + +---------+ + Care Team Providers + +------+ + | Care Corporate Webmaster Name | Role | Phone | + +------+ + | Aryan Grossman MD | PCP | | + +------+ + Reason for Referral Diagnostic Testing (Routine) +--------+--------+ + + + + | Status | Reason | Specialty | Diagnoses / | Referred By | Referred To | | | | | Procedures | Contact | Contact | +--------+--------+ + + + + | Closed | | Non [facility] | Diagnoses | Shreves, | Non[facility] | | | | Department | Prostate | Simran Powell, | Epic Dept | | | | | cancer (HCC) | ACNP [address] | | | | | | Procedures | [address] | | | | | | BONE | [address] | | | | | | DENSITY | Rd | | | | | | PROCEDURE | [place], [place] | | | | | | [place] DXA BONE | [address] | | | | | | DENSITY, | Phone: | | | | | | AXIAL | [phone] | | | | | | | Fax: | | | | | | | [phone] | | +--------+--------+ + + + + Reason for Visit + + + | Reason | Comments | + + + | Follow-up encounter | | + + + Benefits Check [...] | | | | prostate | [address] | [address] | | | | | Elevated | [address] | | | | | prostate | Rd | [place], [place] | | | | | specific | [place], [place] | [address] | | | | | antigen | [address] | Phone: | | | | | (PSA) | Phone: | [phone] | | | | | | [phone] | Fax: | | | | | | Fax: | [phone] | | | | | | [phone] | | +--------+--------+ + + + + Encounter Details +--------+---------+ + + + | Date | Type | Department | Care Team | Description | +--------+---------+ + + + | 03/28/ | Office | Urology at [facility] | Simran Osman, | Prostate cancer | | 2017 | Visit | [address] | ACNP [address] | (HCC) (Primary Dx) | | | | [place] [facility] | [facility] [address] | | | | | and Healing, | [place], [place] | | | | | Building | [address] | | | | | Floor [place], [place] | [phone] | | | | | [address] | | | | | | [phone] | | | +--------+---------+ + + + [...] + + + + | Weight | 85.3 kg (188 lb) | 03/28/2017 11:32 AM | | | | | PDT | | + + + + + | Height | - | - | | + + + + + | Body Mass Index | 27.75 | 08/01/2014 8:19 AM | | | | | PST | | + + + + + documented in this encounter Progress Simran Bustos ACNP - 03/28/2017 11:40 AM PDT UROLOGIC [facility]COL[facility]Y CLINIC Return Patient Evaluation CC: Biochemical Recurrence of Prostate Cancer HISTORY OF PRESENT ILLNESS: Mr. Mani Garcia is a 51 yo WM with a biochemical recurrence following prostatectomy for prostate cancer. He has a history of [place]roy 4+3, margin positive, +NAYELY, +SVI, [id number] (0/ 10 nodes) prostate cancer who underwent RRP with bilateral PLND on 08/01/[address] Columba Kohli. He is 2.5 years post-op. His pre-operative PSA was 86.19 ng/ml (02/20/14). He was on Casodex briefly prior to surgery. Leupron was recommended but he could not afford it. A met astatic work-up pre-operatively was negative with bone scan and CT scan. He had significant lower urinary tract symptoms so surgery was favored over radiation. His first post-op PSA wa s 0.75 ng/ml on 10/01/14. He then was lost to follow-up and did not return until prompted by h is PCP who found his PSA to be 11.54 ng/ml (11/16/16). His PSADT was 7 months at that time. He was started on Casdoex on 12/10/16 and a 3 month leuprolide injection on 12/31/16. Metastat ic work-up with bone scan and CT scan of CAP 12/17/16 (external) showed no evidence of metast atic disease. He is tolerating ADT but having several symptoms which are difficult on him, t hese include: fatigue, hot flashes, insomnia, anxiety, poor balance, reduced endurance, ED. His PSA from today is pending. He returns today for his next leuprolide injection. He has moderate voiding symptoms with an AUA Symptom Score of 23/35. His main complain is u rgency and frequency. He feels that he empties completely. No straining to empty. He has nev er tried an anticholinergic for his voiding symptoms. He has no incontinence and no gross he maturia. He has diminished sexual function with a MAURICIO score of 5/25. He inquires about beto atment options for his ED. He is about to start an alcohol treatment program and wishes to s top drinking and smoking tobacco. He smokes marijuana which has been helpful with his appeti te, which has been poor for several months. Prostate Cancer History: He was noted to [...] psa was 28. HIs creatinine was 0.79. [facility] lab: LLB 4+3 90%, LLM 4+3 95%, la 4+3, 96%, RLB 4+3 96%, RLM 4+3 95%, RA 3+4 96% PHYSICAL EXAM: Wt 85.3 kg (188 lb) | BMI 27.75 kg/(m^2) GEN: appears well, in NAD PSYCH: [...] ng/ml 12/19/14 Lab Results Component Value Date PSA 0.75 10/01/2014 PSA 22.07 07/09/2014 PATHOLOGY: SOURCE OF SPECIMEN:A Right pelvic lymph [...] M.D., Ph.D./Surgical Pathology Resident Donavan Velazquez M.D./Pathologist /rdyaima Prostate Gland Cancer Synopsis Procedure: Radical prostatectomy [...] RRP with BPLND for a GG 4+3 [id number] prostate cancer (08/01/14). PSA at time of diagnosis was 86.19 ng/ml. Metastatic wor k-up was negative pre-operatively. He received no adjuvant or salvage radiotherapy. His PSA was detectable immediately post-op and has been increasing since to a current level of 11.54 ng/ml (10/2016). His PSADT is 7 months. Beyond the window of eligibility for salvage radioth erapy, so no option to cure this recurrence. No evidence of metastasis on repeat work-up 11/25 01/10. He started androgen deprivation therapy (ADT) 12/2016 with a plan for 9 months of leupr olide treatment today. Having some significant side effects to ADT which make work in [employer] u[employer] difficult and unsafe. Highly recommend considering disability conversations with his PCP. ADT affects stamina, strength, agility, and balance while also compromising bone streng th so risks for fracture and injury is higher in this population. PSA from today is pending. Will contact patient with results. If nice decrease in PSA will plan to complete a 9 month course. Lower Urinary Tract Symptoms: Storage symptoms. We discussed a trial of an anticholinergic including the possible side effects which include: dry mouth, dry eyes, blurred vision, dizz iness, drowsiness. He would like a trial. PLAN: 1. Leuprolide 3 month depot today 2. Calcium 1500 mg daily (in divided doses such as TUMS 500mg TID) and Vitamin D 2000 IU d aily 3. Follow-up with PCP for monitoring and management of BP, blood glucose, and lipids 4. Baseline DEXA scan (external) 5. Patient will call if he wants to learn ICI 6. Trial of amitriptyline for hot flashes and insomnia 7. Oxybutynin 10mg CR for urgency/frequency 8. Follow-up with PCP regarding disability Orders Placed This Encounter VITAMIN D, 25-HYDROXY, SERUM [facility] PSA TOTAL, MONITORING BONE DENSITY PROCEDURE amitriptyline 10 mg oral tablet oxybutynin CR 10 mg oral tablet extended release 24hr A total of more than 40 minutes was spent with the patient today, over 50% of which was spe nt in counseling and coordination of care. MAGDA Trotter Nurse Practitioner Urologic Oncology documented in thi s encounter Plan of Treatment Not on filedocumented as of this encounter Results [facility] PSA TOTAL, MONITORING (03/28/2017 10:54 AM PDT) [...] SERVICES, | | | | | | [facility] | | | | | | HEALTH [...] + + | [facility] | [address] | [place] [address] | | | [facility] | | | | | [...] LABORATORY | | | | | | [facility], | | | | | | CORE [...] + + + + + | [facility] | [address] | [place] [address] | | | SERVICES, CORE | [address] | | | + + + + + documented in this encounter Visit Diagnoses + + | Diagnosis | + + | Prostate cancer (HCC) - Primary Malignant neoplasm of prostate | + + documented in this encounter"
--- OUTSIDE RECORDS SUMMARY | ~2020-06-06 | XMS | Encounter Summary ---
Demographics + + + | Address | NEED ADDRESS | | | [place] [address] | + + + | Home Phone | | + + + | Preferred Language | Unknown | + + + | Marital Status | Single | + + + | Yarsanism Affiliation | Unknown | + + + [...] + | Hector Garcia | ECON | [place] [address] | | + + + + + Care Team Providers + +------+ + | Care Freezing Room Worker Name | Role | Phone [...] + + + | Closed | | Audiology | Diagnoses | Cheo, | Jaye, | | | | | Unspecified | Antony Stanley MD | [place], [place] | | | | | hearing | [address] | CCC-A [address] | | | | | loss, | [address] | | | | | bilateral | [place], | [address] | | | | | hearing | [place] [address] | [place] | | | | | exam/self/Mo | Phone: | [address] Phone: | | | | | shaan/Lisbet | [phone] | [phone] | | | | | Procedures | Fax: | Fax: | | | | | OFFICE VISIT | [phone] | [phone] | | | | | REGULAR | | | +--------+--------+ + + + + Encounter Details +--------+---------+ + + + | Date | Type | Department | Care Team | Description | +--------+---------+ + + + | 11/16/ | Office | [facility] | Geovanna Cee MS | Sensorineural | | 2018 | Visit | AUDIOLOGY AND | CCC-A [address] | hearing loss (SNHL) | | | | [facility] | [address] | of both ears | | | | [address] | [place] [address] | (Primary Dx); | | | | [address] | [phone] | Subjective tinnitus, | | | | [place] [address] | | bilateral | | | | [phone] | | | +--------+---------+ + + + [...] documented as of this encounter Progress Notes Geovanna Cee MS CCC-A - 11/16/2017 2:15 PM PSTReferring Provider: Antony Grider M.D. Mr. Garcia notices ringing in both his ears. The ringing is constant and would fluctuate in terms of loudness and tone. 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 Results of Hearing Test: Right ear--Pure tone air and bone conduction testing showed 15-30B threshold at 250 Hz through 2 KHz, dropping to 75-90dB at 3 KHz through 8 KHz. Left ear --Pure tone air and bone conduction testing showed 15-35dB threshold at 250 Hz through 2 KHz, dropping to 65-85dB at 3 KHz through 8 KHz. Speech Recognition Thresholds were 20dB in the right ear and 20dB in the left ear. Speech Discrimination Scores were 100% in right ear and 88% in the left ear. Tympanometry showed normal type A tracings in both ears. Impression and Recommendation: A bilateral sensory-neural hearing loss in the high frequen cies with subjective tinnitus. Hearing protection when around loud noise was encouraged. Follow-up care with Dr. Grider, Sr. Thank you. documented in thi s encounter Plan of Treatment Not on filedocumented as of this encounter Visit Diagnoses + + | Diagnosis | + + | Sensorineural hearing loss (SNHL) of both ears - Primary | + + | Subjective tinnitus, bilateral | + + documented in this encounter"
--- OUTSIDE RECORDS SUMMARY | ~2020-06-06 | XMS | Encounter Summary ---
Demographics + + + | Address | NEED ADDRESS | | | [place] [address] | + + + | Home Phone [...] + | Hector Garcia | ECON | [place] [address] | | + + + + + Care Team Providers + +------+ + | Care Club Concierge Name | Role | Phone | + [...] | Specialty | Physical | Diagnoses | Cheo | | | | Services | Therapy | Left arm | Antony Powell MD | PHYSICAL | | | Required | | weakness | [address] | THERAPY - | | | | | Prostate | [address] | [facility] | | | | | cancer (HCC) | [place] | [facility] | | | | | History of | [place] [address] | [address] | | | | | alcoholism | Phone: | ST | | | | | (HCC) | [phone] | [facility] | | | | | Proximal | Fax: | [place], [place] | | | | | weakness of | [phone] | [address] | | | | | extremity | | Phone: | | | | | Procedures | | [phone] | | | | | HIM 06/26 | | Fax: | | | | | | | [phone] | +--------+ + + + + + Reason for Visit + + + | Reason | Comments | + + + | Neck Pain | | + + + | Numbness | left arm/hand | + + + Encounter Details +--------+---------+ + + + | Date | Type | Department | Care Team | Description | +--------+---------+ + + + | 06/22/ | Office | [facility] | Antony Grider, | Cervicalgia (Primary | | 2018 | Visit | PHYSIATRY [address] | MD [address] | Dx); Cervical | | | | [address] | [place] | radiculopathy; Left | | | | [facility] [place] | [address] | arm weakness; | | | | [address] | | Numbness and | | | | [phone] | | tingling in left | | | | | | hand; Right hand | | | | | | weakness; Prostate | | | | | | cancer (HCC); | | | | | | History of | | | | | | alcoholism (HCC); | | | | | | Proximal weakness of | | | | | | extremity | +--------+---------+ + + + Social History [...] + + + | Blood Pressure | 136/91 | 06/22/2018 8:58 AM | | | | | PDT | | + + + + + | Pulse | 96 | 06/22/2018 8:58 AM | | | [...] Weight | 90.7 kg (200 lb) | 06/22/2018 8:58 AM | | | | | PDT | | + + + + + | Height | 175.3 cm (5' 9") | 06/22/2018 8:58 AM | | | | | PDT | | + + + + + | Body Mass Index | 29.53 | 06/22/2018 8:58 AM | | | | | PDT | | + + + + + documented in this encounter Patient Instructions Patient Instructions Abigail Patel RN - 06/22/2018 8:40 AM PDTPhysical therapy has bee n prescribed. Please participate in physical therapy. If you have not be contacted for an appointment with physical therapy within one week, please contact the clinic. Once you have completed physical therapy please continue the home exercise program as outline by physical therapy, indefinitely. Laboratory tests have been requested. Please go to the lab to complete your laboratory keyona ting. The results of your laboratory testing will be reviewed at your next appointment. If your labratory results demonstrate any emergent results the clinic will contact you. documented in this encounter Progress Notes Antony Grider MD - 06/22/2018 8:40 AM PDTFormatting of this note might be different fro m the original. Antony Griedr MD [address] [place] [address], [address] [place] [address] FAX: PHYSICAL MEDICINE AND REHABILITATION H&P CHIEF COMPLAINT: Chief Complaint Patient presents with Neck Pain Numbness left arm/hand HISTORY OF PRESENT ILLNESS: Mani Garcia is a 53 y.o. male being seen today in follow-up for complaints of neck pain and left upper extremity symptoms. Mani Garcia was last seen on 02/06/18. Previously it was recommended that he be evaluated with oncology locally, that she complete laboratory , and that he complete left carpal tunnel surgery. Mani Garcia completed left carpal t unnel surgery on 03/10/[address] Hurst. Mani Garcia has established care under [facility] oncology, and is receiving treatment. Overall Mani Garcia reports that his symptoms are mildly improved to the left hand, but overall still persist. Mani Garcia rates the pain as 8 on scale of 1-10. Mani hummel describes the pain as aching, sharp, burning or tingling. His symptoms worsen with acti vity and use of arms. His symptoms improve with rest and mildly with neuropathic pain medic ation Cymbalta. Mani Garcia does describe numbness of the left hand, although it is im proving slightly since carpal tunnel release. He does report weakness of the arms and legs . Mani Garcia reports weakness when rising from sitting or squatting. He does not report chronic bladder incontinence of bladder after prostate surgery. He do es not have saddle anesthesia. Treatments for these complaints have included physical therapy and medication . Mani Garcia is currently taking Cymbalta 60 mg daily and naproxen for treatment of pain. Mani Lus medications, allergies, past medical, surgical, social and [...] 50 mcg/nasal spray 1 spray by Nasal route. fluticasone (FLONASE) 50 mcg/nasal spray by Nasal route as needed. hydroCHLOROthiazide 25 mg tablet Take 50 mg by mouth Daily. losartan (COZAAR) 50 mg tablet take 1 tablet by mouth once daily (Patient taking differ ently: take 2 tablet by mouth once daily) 90 tablet 3 naproxen (NAPROSYN) 500 mg tablet take 1 tablet by mouth twice a day with meals naproxen (NAPROSYN) 500 mg tablet Take 500 [...] Allergies REVIEW OF SYSTEMS: Review of Systems Constitutional: Positive for malaise/fatigue. Negative for chills, diaphoresis, fever and w eight loss. HENT: Positive for hearing loss. Negative for ear discharge, ear pain and tinnitus. Eyes: Negative. Respiratory: Positive for cough, sputum production and shortness of breath. Cardiovascular: Negative. Gastrointestinal: Negative. Genitourinary: Positive for frequency and urgency. Musculoskeletal: Positive for back pain, joint pain, myalgias and neck pain. Skin: Negative for itching and rash. Neurological: Positive for tingling, sensory change, speech change, weakness and headaches. Negative for focal weakness, seizures and loss of consciousness. Endo/Heme/Allergies: Negative. Psychiatric/Behavioral: Positive for depression and memory loss. Negative for substance abu se and suicidal ideas. The patient is nervous/anxious and has insomnia. PHYSICAL EXAMINATION: Body mass index is 29.53 kg/m. Vitals: 06/22/18 0858 BP: (!) 136/91 Pulse: 96 PainSc: 8 PainLoc: Back GENERAL: The patient is well developed and [...] exam shows no significant rashes or lesions. NEUROLOGIC: The patient is awake, alert, and oriented. He follows simple and complex commands. His speech is fluent. He comprehends speech well. He has no apparent deficits with short or termite control servicer memory. The cranial nerves appear grossly intact. Sensory exam: sensation intact to light touch in the upper and lower extremities. Subjectiv e decreased sensation with monofilament testing to ulnar aspect of left forearm. MOTOR EXAM: (5 IS NORMAL) * Indicates pain limited MUSCLE/ MOVEMENT: RIGHT LEFT Deltoids 5 5 Biceps 5 5 Triceps 5 4 Wrist Flexion 5 5 Wrist Extension 5 5 Finger Abduction 5 4 Gate Attendant Strength 5 4 Hip Flexion 4+ 5 Hip Extension 5 5 Knee Flexion 5 5 Knee Extension 5 5 Extensor Hallicus Longus 5 5 Ankle Dorsiflexion 5 5 Shoulder abduction 5 4 REFLEX: RIGHT LEFT BICEPS 2+ 2+ BRACHIORADIALIS 2+ 2+ PATELLAR 2+ 2+ ACHILLES 2+ 2+ MUSCULOSKELETAL : The patient localized the majority of the pain to the cervical and left a rm region. DATABASE: MRI competed 11/29/17 was reviewed personally by me in detail during today's visit. I conc ur with the results as reported by the Radiologist. The imaging demonstrates: There is diffu se cervical spondylosis. Central spinal canal narrowing is predominantly mild and seen at th e C4-C5, C5-C6, C6-C7, C7-T1 levels. Multilevel neural foraminal narrowing. This is diffus e and affects C3-C4, C4-C5, C6-C7, C7-T1. Details are as above. Sclerotic lesion in C4. This has long-term presence. This could be a remnant metastasis in a patient with known p rostate cancer. ASSESSMENT: 1. Cervicalgia 2. Cervical radiculopathy 3. Left arm weakness 4. Numbness and tingling in left hand 5. Right hand weakness 6. Prostate cancer (HCC) 7. History of alcoholism (HCC) PLAN: 1. Mani Garcia returns to the clinic today to discuss lab results, and response to carp al tunnel release. 2. Today we dicussed Mani Garcia's cervical imaging. We dicussed that imaging demonstra keyona changes at C6-C7 that may effect C7 causing possible contributing to Left hand symptoms. 3. Mani Garcia has a history metastatic prostate cancer with possible metastatic diseas e affecting of C4. Mani Garcia may benefit therapeutically with a cervical epidural ster oid injection to C6-C7 to treat C7 radiculopathy. We dicussed that we would first need clear ance for his oncologist prior to requesting this injection. 4.Mani Garcia reports symptoms of generalized weakness, that is worsening. Mani burnett will complete laboratory testing to evaluate for muscle breakdown including; CK, aldolas e, LDH, myoglobin, ESR, and CRP. 5. Mani Garcia indicates needing an "as needed" pain medication for breakthrough pain in addition to his current neuropathic pain medication. We discussed that opiate type medica tion may not be prescribed through this clinic as we do not have the capacity to follow up a s frequently as needed. He was advised to discuss this request with his PCP or oncologist. Due to Mani Garcia history of EtOH use history I am hesitant to use the tradition anti seizure medication such as gabapentin for neuropathic pain medication. There is risk of abu se for gabapentin and Lyrica, especially in those with histo 6. Mani will participate in Physical therapy for strength ing and treatment of cervical, and radicular symptoms. Orders will go to [facility] in . 7. Mani Garcia will be scheduled to return to the clinic in two months to review his re sponse to physical therapy. Mani Garcia had left carpal tunnel release. He has had improvement of left upper extre mity symptoms, but significant left upper extremity symptoms persist. Based off of his clin ica presentation and physical exam, he likely has cervical radiculopathy, also affecting le ft upper extremity. He will participate in physical therapy. Future steps may include epid ural steroid injection, surgical consultation, updated imaging, etc. Coordination with onco logy is necessary. He reports generalized proximal weakness. Labs for myopathy requested. Prior nerve study demonstrated axon loss neuropathy. Weakness may be neuropathy related. Labs to evaluate fo r neuropathy have been unremarkable. His neuropathy is likely secondary to EtOH versus here ditary. I spent 30 minutes in visit with Mani Garcia today with the majority of time spent coun selling the patient on his diagnosis, options for his care, and coordinating his care. I, Antony Grider MD personally performed the services described in this documentation, as scribed by in my presence, Abigail Patel RN and are both accurate and complete. Antony Grider MD - 06/22/2018 documented in this en counter Plan of Treatment + + +--------+ + + | Name | Type | Priori | Associated Diagnoses | Order Schedule | | | | ty | | | + + +--------+ + + | Physical Therapy - | Outpatient | Routin | Left arm weakness | Ordered: 06/22/2018 | | Ambulatory Referral | Referral | e | Prostate cancer | | | | | | (HCC) History of | | | | | | alcoholism (HCC) | | | | | | Proximal weakness of | | | | | | extremity | | + + +--------+ + + documented as of this encounter Results Myoglobin (07/26/2018 7:55 AM PDT) + +--------+ + + + | Component | Value | Ref Range | Performed | Pathologist | | | | | At | Signature | + +--------+ + + + | Myoglobin | 89 (H) | 28 - 72 ng/mL | REFERENCE | | | | | | LAB [facility] | | | | | | - [facility] | | + +--------+ + + + + + | Specimen | + + | Blood | + + + + + | Narrative | Performed At | + + + | Performed at: 01 - [facility] [address], | REFERENCE LAB | | [place] [id number] Graphic Pre Press Trades Worker: Tani Bradshaw MD, Phone: | [facility] | | [phone] | | + + + + + + + + | Performing | Address | City/State/Zipcode | Phone Number | | Organization | | | | + + + + + | REFERENCE LAB | [address] | [place], [place] | [phone] | | [facility] | [facility] | [address] | | + + + + + Aldolase (07/26/2018 7:55 AM PDT) + +-------+ + + + | Component | Value | Ref Range | Performed | Pathologist | | | | | At | Signature | + +-------+ + + + | Aldolase | 3.7 | 3.3 - 10.3 U/L | REFERENCE | | | | | | LAB [facility] | | | | | | - [place] | | + +-------+ + + + + + | Specimen | + + | Blood | + + + + + | Narrative | Performed At | + + + | Performed at: 01 - [facility] [address], | REFERENCE LAB | | [place] [phone] Graphic [employer] Trades Worker: Tani Bradshaw MD, Phone: | [facility] | | [phone] | | + + + + + + + + | Performing | Address | City/State/Zipcode | Phone Number | | Organization | | | | + + + + + | REFERENCE LAB | [address] | [place], [place] | [phone] | | [facility] | [place] | [address] | | + + + + + C-Reactive Protein (07/26/2018 7:55 AM PDT) + +-------+ + + + | Component | Value | Ref Range | Performed | Pathologist | | | | | At | Signature | + +-------+ + + + | CRP | 0.97 | <8.00 mg/L | [facility] | | | | | | [facility] [...] | + + + + + | [facility] | [address] | [place] | [phone] | | [facility] | | [address] | | | - LABORATORY | | | | + + + + + Sedimentation Rate (07/26/2018 7:55 AM PDT) + +-------+ + + + | Component | Value | Ref Range | Performed | Pathologist | | | | | At | Signature | + +-------+ + + + | Erythrocyte | 2 | <20 mm/hr | [facility] | | | | | [facility] | | | [facility] | | [facility] | | | on Rate | | | CENTER - | | | | | | LABORATORY | | + +-------+ + + + + + | Specimen | + + | Blood | + + + + + + + | Performing | Address | City/State/Zipcode | Phone Number | | Organization | | | | + + + + + | [facility] | [address] | [place] | [phone] | | [facility] | | [address] | | | - LABORATORY | | | | + + + + + Lactate Dehydrogenase (07/26/2018 7:55 AM PDT) + +-------+ + + + | Component | Value | Ref Range | Performed | Pathologist | | | | | At | Signature | + +-------+ + + + | LDH TOTAL | 180 | 91 - 180 U/L | [facility] | | | | | | [facility] [...] | [address] | [place] | [phone] | | [facility] | | [address] | | | - LABORATORY | | | | + + + + + CK Total (07/26/2018 7:55 AM PDT) + +-------+ + + + | Component | Value | Ref Range | Performed | Pathologist | | | | | At | Signature | + +-------+ + + + | CK TOTAL | 238 | 22 - 269 U/L | [facility] | | | | | [...] [address] | [place] | [phone] | | [facility] | | [address] | | | - LABORATORY | | | | + + + + + documented in this encounter Visit Diagnoses + + | Diagnosis | + + | Cervicalgia - Primary | + + | Cervical radiculopathy Brachial neuritis or radiculitis nos | + + | Left arm weakness Other musculoskeletal symptoms referable to limbs | + + | Numbness and tingling in left hand Disturbance of skin sensation | + + | Right hand weakness Muscle weakness (generalized) | + + | Prostate cancer (HCC) Malignant neoplasm of prostate | + + | History of alcoholism (HCC) Personal history of alcoholism | + + | Proximal weakness of extremity | + + documented in this encounter
--- OUTSIDE RECORDS SUMMARY | ~2020-06-06 | XMS | Encounter Summary ---
Demographics + + + | Address | NEED ADDRESS | | | [place] [address] | + + + | Home Phone [...] + + + | Author | [facility] | | | and [place] | + + + | Organization | [facility] | | | [...] Hector Garcia | ECON | [place] [address] | | + + + + + Care Team Providers + +------+ + | Care Area Director Of Home Health Sales Name | Role | Phone | + +------+ + | Loi Frausto PA-C | PCP | | + +------+ + Reason for Visit + +--------+ + | Reason | Onset | Comments | | | Date | | + +--------+ + | Results, Imaging | 10/14/ | | | | 2017 | | + +--------+ + Encounter Details +--------+ + + + + | Date | Type | Department | Care Team | Description | +--------+ + + + + | 10/14/ | Telephone | [facility] | Antony Grider, | Results, Imaging | | 2017 | | PHYSIATRY [address] | MD [address] | | | | | [address] | [place] | | | | | [place] | [address] | | | | | [address] | | | | | | [phone] | | | +--------+ + + + [...] Miscellaneous Notes Telephone Encounter - Emeli Redding Senior Executive Compensation Analyst - 10/14/2017 10:38 AM PSTCalle d to inform Mani Garcia of imaging results. results were relayed. Mani Garcia verbal ized understanding. Electronically signed by Antonieta Streeter at 2017 10:38 AM PSTTelephone Encounter - Emeli Redding Senior Executive Compensation Analyst - 10/14/2017 1 0:37 AM PST----- Message from Antony Grider MD sent at 10/13/2017 11:39 PST ----- Abigail, Please let Mani Garcia know that I have reviewed his back x-ray. The x-ray demonstrate s significant arthritic changes which are likely contributing to his pain. I would like him to proceed with therapy as planned. Thank you, Antony Grider MD (Jr.) ----- Message ----- From: Jhonathan Marie Results In Sent: 10/13/2017 11:04 To: Antony Grider MD do cumented in this encounter Plan of Treatment Not on filedocumented as of this encounter Visit Diagnoses Not on filedocumented in this encounter"
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
--- OUTSIDE RECORDS SUMMARY | ~2020-06-06 | XMS | Encounter Summary ---
Demographics + + + | Address | [address] | | | [place] [facility] [place] [address] | + + + | Home Phone | | + + + | Preferred Language | Unknown | + + + | Marital Status | Single | + + + | Episcopal Affiliation | CHR | + + + | Race | White | + + + | Ethnic Group | Not or | + + + Author + + + | Author | [facility] | + + + | Organization | [facility] | + + + | Address | Unknown | + + + | Phone | Unavailable | + + + Support + + +---------+ + | Name | Relationship | Address | Phone | + + +---------+ + | Servando Boyer | ECON | Unknown | | + + +---------+ + Care Team Providers + +------+ + | Care Sales Attendant Name | Role | Phone | + +------+ + | Aryan Grossman MD | PCP | | + +------+ + Reason for Visit + +--------+ + | Reason | Onset | Comments | | | Date | | + +--------+ + | Care Coordination | 06/02/ | | | | 2016 | | + +--------+ + Encounter Details +--------+ + + + + | Date | Type | Department | Care Team | Description | +--------+ + + + + | 06/02/ | Telephone | Urology at [facility] | Simran Osman, | Care Coordination | | 2017 | | [address] | ACNP [address] [facility] | | | | | Mailcode: CH10U | [facility] | | | | | [facility] | [place], [place] | | | | | and Healing, | [address] | | | | | Building | [phone] | | | | | Floor [place], [place] | | | | | | [address] | | | | | | [phone] | | | +--------+ + + + [...] Telephone Encounter - Rashida Pina MA - 06/07/2017 10:42 AM PDTCalled and spoke with hu on regarding his disability paperwork. He was confused and thought he was going to be receiv ing the ADT treatment for the rest of his life. I relayed the message from Simran's last efrain rt note that the treatment is 9 months long. After that, the disability would be reassessed and see if it needs to continue longer and if he needs to receive more treatment. He voiced confirmation, and said he would contact our office with any further questions. Electronicall y signed by Rashida Pina MA at 06/07/2017 10:45 AM PDTTelephone Encounter - Ethel East - 06/07/2017 9:45 AM PDTPatient returned [facility] Field's call. Attempted to call [facility] but they w ere unavailable. Informed pt [facility] would try to call this afternoon per previous telephone enco unter. elephone Encounter - Rashida Pina MA - 06/07/2017 9:24 AM PDTAttempted call to Don just now. Line was busy , and didn't allow me to leave a VM. Will attempt another call this afternoon. elephone Encounter - Dinora Fong sa - 06/06/2017 2:15 PM PDTMauriciokarina left a voicemail on 06/06/17 at 1:00pm. He would like to d iscuss his disability case. P DTTelephone Encounter - Rashida Pina MA - 06/03/2017 3:22 PM PDTCalled and spoke with one of the nurses Migdalia regarding the ADT treatment. They are filing disability paperwork. She asked if the disability paperwork should be for 9 months or if it will stop him from wor leeann all together. I said that for now, from Simran's notes it is only talking about the nex t 9 months of the treatment. 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 He voiced understanding and would pass t he information on to the PCP to complete the paperwork. elephone Encounter - Beata Fong - 06/02/2017 8:50 AM Tanner with [facility] in [place] called in today to speak with [facility] staff in regards to a message from Dr. Grossman. Dianne states the doctor has some questions about the ADT treatment and would like a call back. Okay to talk to anyone of the nurses who picks up. Call back number is [phone]. 8:5 7 AM PDTdocumented in this encounter Plan of Treatment Not on filedocumented as of this encounter Visit Diagnoses Not on filedocumented in this encounter"
--- OUTSIDE RECORDS SUMMARY | ~2020-06-06 | XMS | Encounter Summary ---
Demographics + + + | Address | [address] | | | [place] [facility] [place] [address] | + + + | Home Phone [...] + + | Author | [facility] | + + + | Organization | [facility] | + + + | Address | Unknown | + + + | Phone | Unavailable | + + + Support + + +---------+ + | Name | Relationship | Address | Phone | + + +---------+ + | Servando Boyer | ECON | Unknown | | + + +---------+ + Care Team Providers + +------+ + | Care Online Journalist Name | Role | Phone | + +------+ + | Aryan Grossman MD | PCP | | + +------+ + Encounter Details +--------+ + + + + | Date | Type | Department | Care Team | Description | +--------+ + + + + | 07/08/ | Cell Technician | Urology at [facility] | Columba Kohli, | Prostate cancer | | 2013 | | [address] | [address] | ([facility]) (Primary Dx) | | | | Mailcode: CH10U | [place] [address] | | | | | [place] [facility] | [phone] | | | | | and Healing, | | | | | | | | | | | | Floor [place], [place] | | | | | | [address] | | | | | | [phone] | | | +--------+ + + + [...] on filedocumented as of this encounter Results [facility] PSA TOTAL, MONITORING (07/09/2014 1:09 PM [...] | + + + + + | [facility] | [address] | [place] [address] | | | [facility] | | | | | HEALTH + HEALING | | | | + + + + + documented in this encounter Visit Diagnoses + + | Diagnosis | + + | Prostate cancer (HCC) - Primary Malignant neoplasm of prostate | + + documented in this encounter"
--- OUTSIDE RECORDS SUMMARY | ~2020-06-06 | XMS | Encounter Summary ---
Demographics + + + | Address | NEED ADDRESS | | | [place] [address] | + + + | Home Phone | | + + + | Preferred Language | Unknown | + + + | Marital Status | Single | + + + | Quaker Affiliation | Unknown | + + + [...] + | [address] | ECON | [place] [address] | | + + + + + Care Team Providers + +------+ + | Care Asbestos Surveyor Name | Role | Phone | + [...] | Specialty | Urology | Diagnoses | [facility], | | | | Services | | Prostate | Aryan Velásquez MD | | | | Required | | cancer (HCC) | [address] | | | | | | | [place] | | | | | | | [place] | | | | | | | [address] | | | | | | | Phone: | | | | | | | [phone] | | | | | | | Fax: | | | | | | | [phone] | | +--------+ + + + + + Reason for Visit + + + | Reason | Comments | + + + | Hypertension | | + + + Encounter Details +--------+---------+ + + + | Date | Type | Department | Care Team | Description | +--------+---------+ + + + | 02/20/ | Office | [facility] | Aryan Grossman, | Prostate cancer | | 2014 | Visit | MEDICINE [address] [place] [address] | [address] | (HCC) (Primary Dx); | | | | [address] [place], | [address] [place], | HTN (hypertension); | | | | [place] [address] | [place] [address] | Nicotine addiction | | | | [phone] | [phone] | | | | | | | [...] + + + | Blood Pressure | 160/104 | 02/20/2014 1:48 PM | | | | | PDT | | + + + + + | Pulse | 97 | 02/20/2014 1:48 PM | | | | | PDT | | + + + + + | Temperature | 36.6 C (97.8 F) | 02/20/2014 1:48 PM | | | | | PDT | | + + + + + | Respiratory Rate | 20 | 02/20/2014 1:48 PM | | | | | PDT | | + + + + + | Oxygen Saturation | 98% | 02/20/2014 1:48 PM | | | | | PDT | | + + + + + | Inhaled Oxygen | - | - | | | Concentration | | | | + + + + + | Weight | 92.1 kg (203 lb) | 02/20/2014 1:48 PM | | | | | PDT | | + + + + + | Height | 175.3 cm (5' 9") | 02/20/2014 1:48 PM | | | | | PDT | | + + + + + | Body Mass Index | 29.98 | 02/20/2014 1:48 PM | | | | | PDT | | + + + + + documented in this encounter Progress Notes Aryan Grossman MD - 02/20/2014 2:27 PM PDTFormatting of this note might be different f rom the original. Subjective: Patient ID: Mani Garcia is a 48 y.o. male. HPI He is moving to [place]. Prostate Cancer. Just diagnosed, His Chester Score was 7. HTN, He was on some kind of blood pressure medication in the past that he stopped taking i n the past. He never did take it. Depressed, Stress, with new job and older sister recently from cancer. He does feel stressed. He does not feel depressed now. He sleeps good. He is less mccarthy. He nev er did take the medication. He no longer uses meth or drinks. A couple times a month. His son has been clean out of rehab the last month or two. Nicotine Addiction. He is still smoking but he is going to get an electric cigarette. PMH: HTN Hyperlipidemia Alcoholism PSH: Right thumb 2007 Lumbar Diskectomy 1992 Fhx: Mom 64 Ovarian Cancer Dad 50 of MS complications Sister 54, recurrent lymphoma,. First diagnosed with cancer in 40's Shx: Born in [place] , 16 year old son Lives in [place] since 2012, Grew up in [place], [employer] in [place]. [place] Drinks 5 drinks of whisky per night, [...] gross lesions Assessment: 1. Prostate cancer (HCC) Ambulatory referral to Urology 2. HTN (hypertension) 3. Nicotine addiction Plan: He looks and feels fine. He will need a urologist as soon as he gets to [place]. I have to ld him he cannot wait on this. Start taking blood pressure med along with aspirin. documented in this encounter Plan of Treatment + + +--------+ + + | Name | Type | Priori | Associated Diagnoses | Order Schedule | | | | ty | | | + + +--------+ + + | Ambulatory referral | Outpatient | Routin | Prostate cancer | Ordered: 02/20/2014 | | to Urology | Referral | e | (HCC) | | + + +--------+ + + documented as of this encounter Results Type and Screen (02/20/2014 [...] | | | Screen | | | [address] [place] | | [...] St | [place] | | | [facility] | | [address] | | | - BLOOD BANK | | | | + + + + + documented in this encounter Visit Diagnoses + + | Diagnosis | + + | Prostate cancer (HCC) - Primary Malignant neoplasm of prostate | + + | HTN (hypertension) Unspecified essential hypertension | + + | Nicotine addiction Tobacco use disorder | + + documented in this encounter
--- OUTSIDE RECORDS SUMMARY | ~2020-06-06 | XMS | Encounter Summary ---
Demographics + + + | Address | NEED ADDRESS | | | [place] [address] | + + + | Home Phone [...] Hector Garcia | ECON | [place] [address] | | + + + + + Care Team Providers + +------+ + | Care Lead Welder Name | Role | Phone | [...] Description | +--------+---------+ + + + | 02/23/ | Office | [facility] | Christian Sosa | NAHUN (obstructive | | 2017 | Visit | SLEEP DISORDER [address] | MD [address] | sleep apnea) | | | | [address] [place] | [address] [place] | (Primary Dx); | | | | [place] [address] | [place] [address] | Periodic limb | | | | [phone] | [phone] | movements of sleep; | | | | | | REM sleep behavior | | | | | | disorder | +--------+---------+ + + + Social [...] + + + | Blood Pressure | 144/90 | 02/23/2018 11:23 AM | | | | | PDT | | + + + + + | Pulse | 122 | 02/23/2018 11:23 AM | | | | | PDT | | + + + + + | Temperature | - | - | | + + + + + | Respiratory Rate | 16 | 02/23/2018 11:23 AM | | | | | PDT | | + + + + + | Oxygen Saturation | 99% | 02/23/2018 11:23 AM | | | | | PDT | | + + + + + | Inhaled Oxygen | - | - | | | Concentration | | | | + + + + + | Weight | 89.3 kg (196 lb 13.9 | 02/23/2018 11:23 AM | | | | oz) | PDT | | + + + + + | Height | - | - | | + + + + + | Body Mass Index | 29.07 | 02/22/2018 9:19 AM | | | | | PDT | | + + + + + documented in this encounter Patient Instructions Patient Instructions Christian Sosa Jr., MD - 02/23/2018 11:35 AM PDTFormatting of this n ote might be different from the original. Continuous Positive Airway Pressure (CPAP) Your healthcare provider has prescribed continuous positive airway pressure (CPAP) therapy for you. A CPAPdevice helps you breathe better at night. The device sends air through your nose or mouth when you breathe in to keep your air passages open. CPAP is: Used most often to treat sleep apnea and some other problems. (Sleep apnea is a chronic condition with periods of sleep in which you briefly stop breathing.) Safe and very effective. But it takes time to get used to the mask. Your healthcare provider, nurse, or medical supplier will give you tips for wearing and car ing for your CPAP device. General guidelines Recommendations include the following: It's very important not togive up! It takes time to get used to wearing the mask at [facility]. Practice using your CPAP device during the day, especially whenever you take a nap. Remember, there are several different types of masks. If you can t get used to your ma sk, ask your provider or medical supply company about trying another style. If you have nasal stuffiness or dryness when using your CPAP device, talk with your prov ider or medical supply company. There are ways to ease these problems. For example, your pro vider may recommend using a moistening nasal spray. Or the medical supply company may recomm end a device with a humidifier. The goal is to use yourCPAP all night, every night, during all naps, and even when you travel. Keep your mask clean. Wash it with soap and water. Be sure to rinse the mask and tubing well with water to remove any soap. Let them air-dry completely before using. Make yourself comfortable when sleeping with CPAP. Try using extra pillows. Work with your [employer] supply company so that you know how to correctly use your CPAP. The company's inbound sales representative will be able to help you: Use the CPAP correctly Troubleshoot any problems that come up Learn to clean and maintain the device Adjust to regular use of the CPAP The CPAP device settings are given as centimeters of water, or cm/H2O. Each person s pres sure settings are different. Your healthcare provider will tell you what settings to use. Ne shad change your CPAP pressure setting unless your provider tells you to. CPAP cm/H20 pressure when you breathe in Date Last Reviewed: 01/25/201619991805-8275 [employer]. [address] [place] [address]. All [facility] reserved. This information is not intended as a substitute for professional medical care. Always follow your healthcare professional's instructions. documented in this encounter Progress Notes Christian Sosa Jr., MD - 02/23/2018 11:30 AM PDTFormatting of this note might be differen t from the original. The patient comes in for follow-up after undergoing polysomnographically guided positive ai rway pressure titration. My interpretation of the patient's sleep study, which I have review ed with the patient, is as follows: Positive Airway Pressure Titration Report on Mani Garcia performed on February 06, 2018. Clinical Information: Mani Garcia is a 52 y.o. male who underwent polysomnographically guided PAP on February 06, 2018. Diagnostic nocturnal polysomnography performed in December 26 8 demonstrated an Apnea Hypopnea Index of 11.6 [...] signal excursion by 90% or greater of pre-brenda nt baseline using an oronasal thermal sensor [...] breaths does not meet criteria for an leather dresser ea or hypopnea. Sleep Architecture: Lights out [...] to be clinically significant. The patient states he does not get restlessness in his legs when he goes to bed at night. He does toss and turn at night. BP 144/90 | Pulse 122 | Resp 16 | Wt 89.3 kg (196 lb 13.9 oz) | SpO2 99% | BMI 29.07 k g/m Lab Results Component Value Date FERRITIN 140 01/16/2018 A: NAHUN: I've tried to discussed the pathophysiology of obstructive sleep apnea with him aga in. I've discussed the mechanism spike which CPAP is effective in treating apnea. And I've discussed our positive airway pressure adherence clinic with them. PLMS: I've discussed Restless Legs Syndrome with the patient. I've also discussed Stacy odic Limb Movements of Sleep. I've discussed the relationship between the two. I've also dis cussed that I generally offer treatment symptomatically. I've also discussed an overview of treatment: 1) maintain a ferritin level above 75ug/l; 2) Bedtime leg/arm massage; 3) review the need for medications that can worsen RLS/PLMS (such as antidepressants (except for bupr opion) and antihistamines); 4) prescribe medications such as a) dopaminergics, b) benzodiaze pine receptor agonists, c) opiates, and/or d) atypical anti-seizure agents. His ferritin le kayy is normal. I am suggesting he discontinue amitriptyline and trazodone. He basically is asymptomatic at the moment and I do not think any other treatment is warranted. Possible REM Sleep Behavior Disorder: His polysomnograms have demonstrated increased p hasic REM EMG activity and very minor REM foot movements. I'm hopeful that this will likely improve and that overt parasomnias were not occur with treatment of obstructive apnea. Add itionally most of the antidepressants can increase the risk of REM sleep behavior disorder. I think stopping amitriptyline and trazodone might help with this too. P: Resmed AirSense 10 autoset CPAP 5-15cm while sleeping is prescribed. F/u 2 days after getting CPAP with our Clinical Sleep Educator and our PAP Adherence Clinic . D/C Amitriptyline, trazodone Today, 25 minutes was spent face to face with the patient; the majority of time was spent c ch[place] regarding sleep issues. documented in th is encounter Plan of Treatment Not on filedocumented as of this encounter Visit Diagnoses + + | Diagnosis | + + | NAHUN (obstructive sleep apnea) - Primary Obstructive sleep apnea (adult) (pediatric) | + + | Periodic limb movements of sleep Periodic limb movement disorder | + + | REM sleep behavior disorder | + + documented in this encounter
--- OUTSIDE RECORDS SUMMARY | ~2020-06-06 | XMS | Encounter Summary ---
Demographics + + + | Address | NEED ADDRESS | | | [place] [address] | + + + | Home Phone [...] Hector Garcia | ECON | [place] [address] | | + + + + + Care Team Providers + +------+ + | Care Injection Molding Supervisor Name | Role | Phone | [...] + + | 12/17/ | Hospital | [facility] | Simran Osman, | | | 2017 | Encounter | MED CTR NUCLEAR | GLOBAL PROGRAM DIRECTOR [facility] | | | | | MEDICINE [address] | [address] | | | | | [place], | [place], [place] | | | | | [place] [address] | [address] | | | | | [phone] | [phone] | | | | | | | [...]
--- OUTSIDE RECORDS SUMMARY | ~2020-06-06 | XMS | Encounter Summary ---
Demographics + + + | Address | NEED ADDRESS | | | [place] [address] | + + + | Home Phone [...] Hector Garcia | ECON | [place] [address] | | + + + + + Care Team Providers + +------+ + | Care Histologic Aide Name | Role | Phone | + +------+ + | Loi Frausto PA-C | PCP | | + +------+ + Encounter Details +--------+ + + + + | Date | Type | Department | Care Team | Description | +--------+ + + + + | 02/27/ | Hospital | [facility] | Jose Luna DO | Prostate cancer | | 2018 | Encounter | MED CTR MEDICAL | [address] | ([facility]); Alcoholism | | | | ONCOLOGY CLINIC [address] | [place], [place] | ([facility]) | | | | [address] [place] | [address] | | | | | [place] [address] | | | | | | [phone] | | | +--------+ + + + [...] tablet by | 90 | 3 | 05/06/20 | | | 50 mg tablet | [...] + | PSA, DIAGNOSTIC | Routin | 02/27/2018 | Prostate cancer | Results for this | | | e | 10:31 AM | (HCC) | procedure are in the | | | | PDT | | results section. | + +--------+ + + + documented in this encounter Results PSA, Diagnostic (02/27/2018 10:31 AM PDT) + +-------+ + + + | Component | Value | Ref Range | Performed | Pathologist | | | | | At | Signature | + +-------+ + + + | PSA | 0.20 | <=4.00 ng/mL | [facility] | | | | | | [address] [...] [address] | [place] | [phone] | | [facility] | | [address] | | | - LABORATORY | | [...]
--- OUTSIDE RECORDS SUMMARY | ~2020-06-06 | XMS | Encounter Summary ---
Demographics + + + | Address | NEED ADDRESS | | | [place] [address] | + + + | Home Phone [...] + + | Author | [facility] | | | and [place] | + + + | Organization | [facility] | | | and [...] Hector Garcia | ECON | [place] [address] | | + + + + + Care Team Providers + +------+ + | Care Ceramic Artist Name | Role | Phone | + +------+ + | Loi Frausto PA-C | PCP | | + +------+ + Reason for Visit + +--------+ + | Reason | Onset | Comments | | | Date | | + +--------+ + | Appointment | 04/26/ | | | | 2019 | | + +--------+ + Encounter Details +--------+ + + + + | Date | Type | Department | Care Team | Description | +--------+ + + + + | 04/26/ | Telephone | [facility] | Zeeshan Hawkins, | Appointment | | 2019 | | [address] | MD [address] | | | | | [place] | [place] | | | | | [address] | [address] | | | | | [phone] | | | +--------+ + + + [...] Miscellaneous Notes Telephone Encounter - Julee Keen, Natural History Collections Curator - 04/26/2019 10:49 AM PDTP atient notified of upcoming appointment on 05/07/2019 with PSA,CMP and Testosterone prior. Khanh easton verbalized understanding. P DTdocumented in this encounter Plan of Treatment Not on filedocumented as of this encounter Visit Diagnoses Not on filedocumented in this encounter"
--- OUTSIDE RECORDS SUMMARY | ~2020-06-06 | XMS | Encounter Summary ---
Demographics + + + | Address | [address] | | | [place] [facility] [place] [address] | + + + | Home Phone | | + + + | Preferred Language | Unknown | + + + | Marital Status | Single | + + + | Pentecostalism Affiliation | CHR | + + + | Race | White | + + + | Ethnic Group | Not or | + + + Author + + + | Author | [facility] | + + + | Organization | [facility] | + + + | Address | Unknown | + + + | Phone | Unavailable | + + + Support + + +---------+ + | Name | Relationship | Address | Phone | + + +---------+ + | Servando Boyer | ECON | Unknown | | + + +---------+ + Care Team Providers + +------+ + | Care Manager Marketing Sales Name | Role | Phone | + +------+ + | Aryan Grossman MD | PCP | | + +------+ + Reason for Visit + +--------+ + | Reason | Onset | Comments | | | Date | | + +--------+ + | Prior Authorization | 12/29/ | Lavinia | | Request - Medication | 2016 | | + +--------+ + Encounter Details +--------+ + + + + | Date | Type | Department | Care Team | Description | +--------+ + + + + | 05/ | Telephone | Urology at [facility] | Simran Osman, | Prior Authorization | | 2017 | | [address] | ACNP [address] | Request - Medication | | | | Mailcode: [id number] | [address] | (Lupron) | | | | [facility] | [place], [place] | | | | | and [facility], | [address] | | | | | [facility] | [phone] | | | | | Floor [place], [place] | | | | | | [address] | | | | | | [phone] | | | +--------+ + + + [...] Notes Telephone Encounter - Papi Snyder - 12/29/2016 5:13 PM PDTPrior authorization for: Lup monroe 22.5mg every 3 months for 2 years I called [phone] and spoke with the customer service engineer John at [employer] A faxed request was completed and faxed to [employer] as was the 12/10/16 chart notes. Approved: Yes. Auth # is [id number] documented in this encou nter Plan of Treatment Not on filedocumented as of this encounter Visit Diagnoses Not on filedocumented in this encounter"
--- OUTSIDE RECORDS SUMMARY | ~2020-06-06 | XMS | Encounter Summary ---
Demographics + + + | Address | NEED ADDRESS | | | [place] [address] | + + + | Home Phone [...] Author + + + | Author | [facility] | | | and [place] | + + + | Organization | [facility] | | [...] Hector Garcia | ECON | [place] [address] | | + + + + + Care Team Providers + +------+ + | Care Tumbling And Rolling Supervisor Name | Role | Phone | [...] Description | +--------+--------+ + + + | 10/12/ | Refill | [facility] | Aryan Grossman, | Medication Refill | | 2015 | | MEDICINE [address] | [address] | | | | | [address] [place], | [place] [address] [place], | | | | | [place] [address] | [place] [address] | | | | | [phone] | [phone] | | | | | | | [...]
--- OUTSIDE RECORDS SUMMARY | ~2020-06-06 | XMS | Encounter Summary ---
Demographics + + + | Address | [address] | | | [place] [address] | + + + | Home Phone | | + + + | Preferred Language | Unknown | + + + | Marital Status | Single | + + + | Christian Affiliation | CHR | + + + | Race | White | + + + | Ethnic Group | Not or | + + + Author + + + | Author | [facility] | + + + | Organization | [facility] | + + + | Address | Unknown | + + + | Phone | Unavailable | + + + Support + + +---------+ + | Name | Relationship | Address | Phone | + + +---------+ + | Servando Boyer | ECON | Unknown | | + + +---------+ + Care Team Providers + +------+ + | Care Hearing Screen Coordinator Name | Role | Phone | + +------+ + | Aryan Grossman MD | PCP | | + +------+ + Reason for Visit +--------+ + | Reason | Comments | +--------+ + | Other | | +--------+ + Encounter Details +--------+ + + + + | Date | Type | Department | Care Team | Description | +--------+ + + + + | 07/16/ | Press Hand | Urology at [facility] | Columba Kohli, | Prostate cancer | | 2013 | | [address] | [address] | ([facility]) (Primary Dx) | | | | Mailcode: CH10U | [place] [address] | | | | | [facility] | [phone] | | | | | and [place], | | | | | | Building | | | | | | Floor [place], [place] | | | | | | [address] | | | | | | [phone] | | | +--------+ + + + [...] this encounter Miscellaneous Notes Telephone Encounter - Lilia Pepper MA - 07/16/2014 9:47 AM PDTPatient would like to have the imaging done at [facility] in [place]. Patient informed to contact them this week to get the appointment scheduled. Orders faxed to [phone]. elephone Encounter - Lilia Pepper MA - 07/16/2014 9:4 5 AM PDTMessage copied by LILIA PEPPER on TueJul 16, 2014 9:45 AM ------ Message from: COLUMBA KOHLI MD Created: TueJul 15, 2014 2:39 PM Regarding: open prostatectomy Lilia, I talked with him. He has very high volume CaP and psa, but so far it has been confined to the prostate. His last bone scan and ct were in January, so he knows we should rep eat them. Can we get these scheduled close to home for him brian? Schedulers, he also needs a preop anesthesia visit and a visit with med onc. I will p ut in that referral for med. Onc. They have a Tuesday clinic so perhaps he can see them and Papi on a Tuesday, preferably 07/30. Andrae, I will put a surg req in for the or . ------ documented in this encounter Plan of Treatment Not on filedocumented as of this encounter Visit Diagnoses + + | Diagnosis | + + | Prostate cancer (HCC) - Primary Malignant neoplasm of prostate | + + documented in this encounter"
--- OUTSIDE RECORDS SUMMARY | ~2020-06-06 | XMS | Encounter Summary ---
Demographics + + + | Address | NEED ADDRESS | | | [place] [address] | + + + | Home Phone [...] Hector Garcia | ECON | [place] [address] | | + + + + + Care Team Providers + +------+ + | Care Recreation Coordinator Name | Role | Phone | + +------+ + | Loi Frausto PA-C | PCP | | + +------+ + Reason for Visit + +--------+ + | Reason | Onset | Comments | | | Date | | + +--------+ + | Results, Imaging | 08/30/ | | | | 2017 | | + +--------+ + Encounter Details +--------+ + + + + | Date | Type | Department | Care Team | Description | +--------+ + + + + | 08/30/ | Telephone | [facility] | Antony Grider, | Results, Imaging | | 2017 | | PHYSIATRY [address] | MD [address] | | | | | [address] [place] | [place] | | | | | [place] | [id number] | | | | | [address] | | | | | | [phone] | | | +--------+ + + + [...] this encounter Miscellaneous Notes Telephone Encounter - Yamila Jimenez RN - 08/30/2018 1:44 PM PSTNotified Mani burnett of right shoulder xray results per Dr. Grider. Mani Garcia verbalized understanding and appreciated my call. elephone Encounter - Yamila Jimenez RN - 08/30/2018 1:43 PM PST----- Message fr om Antony Grider MD sent at 08/30/2018 11:14 PST ----- Abigail, Please let Mani Plasenciay know that I have reviewed his right shoulder x-rays. There are no emergent findings. The x-rays of the right shoulder demonstrated mild arthritic changes. Thank you, Antony Grider MD (.) ----- Message ----- From: Jhonathan Marie Results In Sent: 08/30/2018 9:54 To: Antony Grider MD documented in this encounter Plan of Treatment Not on filedocumented as of this encounter Visit Diagnoses Not on filedocumented in this encounter"
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
--- OUTSIDE RECORDS SUMMARY | ~2020-06-06 | XMS | Encounter Summary ---
Demographics + + + | Address | NEED ADDRESS | | | [place] [address] | + + + | Home Phone | | + + + | Preferred Language | Unknown | + + + | Marital Status | Single | + + + | Anabaptist Affiliation | Unknown | + + + | Race | White | + + + | Ethnic Group | Not or | + + + Author + + + | Author | [facility] | | | and [place] | + + + | Organization | [facility] | | [...] Hector Garcia | ECON | [place] [address] | | + + + + + Care Team Providers + +------+ + | Care Parts Salvager Name | Role | Phone | + +------+ + | Loi Frausto PA-C | PCP | | + +------+ + Encounter Details +--------+ + + + + | Date | Type | Department | Care Team | Description | +--------+ + + + + | 02/14/ | Episode | [facility] [place] | Lani-April, | | | 2017 | Changes | ORTHOPEDIC SURGERY | Mireya Granados [place] | | | | | [address] | | | | | | [place] | | | | | | [address] | | | | | | [phone] | | | +--------+ + + + [...]
--- OUTSIDE RECORDS SUMMARY | ~2020-06-06 | XMS | Encounter Summary ---
Demographics + + + | Address | NEED ADDRESS | | | [place] [address] | + + + | Home Phone [...] Author + + + | Author | [facility] | | | and [place] | + + + | Organization | [facility] | | [...] Hector Garcia | ECON | [place] [address] | | + + + + + Care Team Providers + +------+ + | Care Assistant Real Estate Manager Name | Role | Phone | + +------+ + | Loi Frausto PA-C | PCP | | + +------+ + Reason for Visit + + + | Reason | Comments | + + + | Follow-up | hearing exam | + + + Evaluate & Treat [...] | | | y | Glossitis | Liza Monsivais MD [address] | | | | | tongue ulcer | PA-C [address] | | | | | | [place] | [place] [address] [place] | | | | | | [place] | [facility] [place] | | | | | | [facility] [place] | [address] Phone: | | | | | | [phone] | [phone] | | | | | | Phone: | Fax: | | | | | | [phone] | [phone] | | | | | | Fax: | | | | | | | [phone] | | +--------+--------+ + + + + Encounter Details +--------+---------+ + + + | Date | Type | Department | Care Team | Description | +--------+---------+ + + + | 11/16/ | Office | [facility] [place] | Antony Grider MD | Sensorineural | | 2018 | Visit | OTOLARYNGOLOGY [address] | [address] [place] | hearing loss (SNHL) | | | | [address] [place] | [address] [place] | of both ears | | | | [place] | [address] | (Primary Dx); | | | | [address] | | Tinnitus of both | | | | [phone] | | ears | +--------+---------+ + + + Social History [...] + + + + | Pulse | 100 | 11/16/2017 2:20 PM | | | | | PST | | + + + + + | Temperature | - | - | | + + + + + | Respiratory Rate | - | - | | + + + + + | Oxygen Saturation | 97% | 11/16/2017 2:20 PM | | | | | PST | | + + + + + | Inhaled Oxygen | - | - | | | Concentration | | | | + + + + + | Weight | 93.4 kg (206 lb) | 11/16/2017 2:20 PM | | | | | PST | | + + + + + | Height | 175.3 cm (5' 9") | 11/16/2017 2:20 PM | | | | | PST | | + + + + + | Body Mass Index | 30.42 | 11/16/2017 2:20 PM | | | | | PST | | + + + + + documented in this encounter Progress Notes Antony Grider MD - 11/16/2017 3:00 PM PSTPatient has worked around a lot of loud noise th rough most of his life. He hears okay when its then a quiet area. If there is any signific ant background noise he has problem hearing. He has a lot of ringing in both ears and this is been present for some time. It sometimes keeps him awake at night and then he puts on a fan and this helps him sleep better. He comes in to have a hearing examination. He also reyes d a leukoplakic area removed from under his tongue back about a month ago and this was noted to be B-9. Examination: Ear canals are open and clean and drums are clear. The oral cavity the area w here the piece of the mucous membrane was removed is closing and but still is not heal compl etely. It has minimal tenderness. Patient is a tobacco smoker and this may be slowing is h ealing. Patient's tympanograms were normal a shaped tympanograms. His speech reception centre manager thr eshold is 20 dB bilaterally. He has a tremendous high-frequency hearing loss in both ears a nd drops down to 90 dB at the 4000 frequency in the right ear and 85 dB in the left ear at t he 4000 frequency. His speech discrimination scores are 100% in the right ear and 88% in th e left ear. Impression: Bilateral high-frequency sensorineural hearing loss that is severe. #2 benign tinnitus. Plan: Patient has been advised that he needs to be protecting his hearing in all types of w ork that he has. He should consider digital hearing aids if the findings that he's in many situations words difficult to hear. He should have a repeat audiogram again in 2 years. documented in this enco unter Plan of Treatment Not on filedocumented as of this encounter Visit Diagnoses + + | Diagnosis | + + | Sensorineural hearing loss (SNHL) of both ears - Primary | + + | Tinnitus of both ears Unspecified tinnitus | + + documented in this encounter
--- OUTSIDE RECORDS SUMMARY | ~2020-06-06 | XMS | Encounter Summary ---
Demographics + + + | Address | NEED ADDRESS | | | [place] [address] | + + + | Home Phone [...] Hector Garcia | ECON | [place] [address] | | + + + + + Care Team Providers + +------+ + | Care Integration Solution Architect Name | Role | Phone | + +------+ + | Aryan Grossman MD | PCP | | + +------+ + Encounter Details +--------+ + + + + | Date | Type | Department | Care Team | Description | +--------+ + + + + | 12/12/ | Hospital | [facility] | Aryan Grossman, | | | 2014 | Encounter | [facility] [address] | | | | | [place], | [address] [place], | | | | | [place] [address] | [place] [address] | | | | | [phone] | | | | | | | [...]
--- OUTSIDE RECORDS SUMMARY | ~2020-06-06 | XMS | Encounter Summary ---
Demographics + + + | Address | [address] | | | [place] [facility] [place] [place] [address] | + + + | Home Phone | | + + + | Preferred Language | Unknown | + + + | Marital Status | Single | + + + | Sikhism Affiliation | CHR | + + + | Race | White | + + + | Ethnic Group | Not or | + + + Author + + + | Author | [facility] | + + + | Organization | [facility] | + + + | Address | Unknown | + + + | Phone | Unavailable | + + + Support + + +---------+ + | Name | Relationship | Address | Phone | + + +---------+ + | Servando Boyer | ECON | Unknown | | + + +---------+ + Care Team Providers + +------+ + | Care Telephoto Engineer Name | Role | Phone | + +------+ + | Aryan Grossman MD | PCP | | + +------+ + Encounter Details +--------+ + + + + | Date | Type | Department | Care Team | Description | +--------+ + + + + | 07/31/ | Orders Only | [facility] | [address] | Preoperative | | 2013 | | [facility] | [address] | examination, | | | | [address] | [facility], | unspecified (Primary | | | | [place], | [place] [address] | Dx) | | | | [place] [address] | | | +--------+ + + + [...] | + +--------+ + + + | CONFIRMATORY ABO/RH | Routin | 08/01/2014 | Preoperative | Results for this | | | e | 8:40 AM | examination, | procedure are in the | | | | PST | unspecified | results section. | + +--------+ + + + documented in this encounter Results CONFIRMATORY ABO/RH (08/01/2014 8:40 AM PST) + + + + + + | Component | Value | Ref Range | Performed | Pathologist | | | | | At | Signature | + + + + + + | ABO Group | B | | [facility] | | | | | | LABORATORY | | | | | | SERVICES, | | | | | | TRANSFUSION | | | | | | MEDICINE | | + + + + + + | Rh Type | Positive | | [facility] | | | | | | LABORATORY | | | | | | SERVICES, | | | | | | TRANSFUSION | | | | | | MEDICINE | | + + + + + + + + | Specimen | + + | Blood - Blood | + + + + + + + | Performing | Address | City/State/Zipcode | Phone Number | | Organization | | | | + + + + + | [facility] | [address] | [place] [address] | | | SERVICES, | [address] | | | | TRANSFUSION MEDICINE | | | | + + + + + documented in this encounter Visit Diagnoses + + | Diagnosis | + + | Preoperative examination, unspecified - Primary | + + documented in this encounter"
--- OUTSIDE RECORDS SUMMARY | ~2020-06-06 | XMS | Encounter Summary ---
Demographics + + + | Address | NEED ADDRESS | | | [place] [address] | + + + | Home Phone [...] | + + + + + | Servnado Boyer | ECON | Unknown | | + + + + + | [address] | ECON | [place] [address] | | + + + + + Care Team Providers + +------+ + | Care Pulmonary Disease Specialist Name | Role | Phone | + +------+ + | Aryan Grossman MD | PCP | | + +------+ + Reason for Visit +--------+--------+ + | Reason | Onset | Comments | | | Date | | +--------+--------+ + | Other | 07/01/ | Refill | | | 2013 | | +--------+--------+ + Encounter Details +--------+ + + + + | Date | Type | Department | Care Team | Description | +--------+ + + + + | 07/01/ | Telephone | [facility] | Sean Sotelo, | Other (Refill) | | 2013 | | [address] | MD [address] | | | | | [place] | [place] | | | | | [address] | [address] | | | | | [phone] | | | +--------+ + + + [...] Telephone Encounter - Ileana Castillo RN - 07/01/2014 12:57 PM PDTPATIENT NOTIFIED. RX SENT ELECTRONICALLY TO [facility] [place]. ddendum Note - Sean Sotelo MD - 07/01/2014 12:49 PM PDT Addended by: SEAN SOTELO on: 07/01/2014 12:49 Modules accepted: Orders elephone Encounter - Sean Sotelo MD - 07/01/2014 12:48 PM PDTSee Rx for Casodex. elephone Encounter - Ileana Castillo RN - 07/01/2014 9:23 AM PDTPATIENT IS ASKING FOR REFILL OF BICALUTAMIDE (CASODEX) SENT TO [facility] [place]. IT WAS INITIALLY PRESCRIBED FOR HIM IN [place]. HE HAS ENOUGH FOR 3 DAYS. documented in this encounter Plan of Treatment Not on filedocumented as of this encounter Visit Diagnoses Not on filedocumented in this encounter"
--- OUTSIDE RECORDS SUMMARY | ~2020-06-06 | XMS | Encounter Summary ---
Demographics + + + | Address | NEED ADDRESS | | | [place] [address] | + + + | Home Phone [...] + | [address] | ECON | [place] [address] | | + + + + + Care Team Providers + +------+ + | Care Tub Attendant Name | Role | Phone | [...] + + | 10/25/ | Hospital | [facility] | Maged Albright, | Bone metastases | | 2019 | Encounter | MED CTR CHEMO | MD [address] | (HCC); Prostate | | | | INFUSION [address] [place], | cancer (HCC) | | | | [place], | [place] [address] | | | | | [address] | [phone] | | | | | [phone] | | | +--------+ + + + [...] documented as of this encounter Progress Notes Sumi Bai RN - 10/25/2018 1:00 PM PSTPatient tolerated injection well today, no concerns. AVS provided with follow up appointments. Discharged to home in stable condition a lone. Boost samples given to patient as he is trying to maintain his weight. documented in this encounter Miscellaneous Notes Treatment Plan - Sumi Bai RN - 10/25/2018 12:44 PM PSTViewed chart for weight, v ital signs and lab results. Also viewed chart for completion of medication and allergy revie w prior to treatment. Sumi Bai RNdate/time@TD documented in this encounter Plan of Treatment [...] (XGEVA) 120 mg/1.7 mL | Given | 10/25/19 | 120 mg | | Arm-Left | | injection 120 mg 120 mg, | | 19 12:53 | | | Upper | | Subcutaneous, ONCE, 10/25/18 | | PM PST | | | | | at 1300, For 1 dose, Keep in | | | | | | | refrigerator. Allow to attain | | | | | | | room temperature prior to use., | | | | | | + +--------+ +--------+------+ + +---+---+ | | | +---+---+ documented in this encounter"
--- OUTSIDE RECORDS SUMMARY | ~2020-06-06 | XMS | Encounter Summary ---
Demographics + + + | Address | NEED ADDRESS | | | [place] [address] | + + + | Home Phone | | + + + | Preferred Language | Unknown | + + + | Marital Status | Single | + + + | Alevism Affiliation | Unknown | + + + [...] + | [address] | ECON | [place] [address] | | + + + + + Care Team Providers + +------+ + | Care Hydrostatic Tubing Tester Name | Role | Phone | [...] neoplasm of | [address] | | | | | prostate | [address] | [place], | | | | | (HCC) | [address] | [place] [address] | | | | | Secondary | [place], | Phone: | | | | | malignant | [place] | [phone] | | | | | neoplasm of | [address] | Fax: | | | | | bone (HCC) | Phone: | [phone] | | | | | Procedures | [phone] | | | | | | DE DENOSUMAB | Fax: | | | | | | INJECTION, | [phone] | | | | | | 1 MG | | | +--------+--------+ + + + + Encounter Details +--------+ + + + + | Date | Type | Department | Care Team | Description | +--------+ + + + + | 12/21/ | Hospital | [facility] | Jessi Ablrightdakota [place], | No Show | | 2018 | Encounter | MED CTR CHEMO | MD [address] | | | | | INFUSION [address] [place], | | | | | [place] | [place] [address] | | | | | [place] [address] | [phone] | | | | | [phone] | | | +--------+ + + + [...]
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
--- OUTSIDE RECORDS SUMMARY | ~2020-06-06 | XMS | Encounter Summary ---
Demographics + + + | Address | [address] | | | [place] [address] | + + + | Home Phone | | + + + | Preferred Language | Unknown | + + + | Marital Status | Single | + + + | Pentecostal Affiliation | CHR | + + + | Race | White | + + + | Ethnic Group | Not or | + + + Author + + + | Author | [facility] | + + + | Organization | [facility] | + + + | Address | Unknown | + + + | Phone | Unavailable | + + + Support + + +---------+ + | Name | Relationship | Address | Phone | + + +---------+ + | Servando Boyer | ECON | Unknown | | + + +---------+ + Care Team Providers + +------+ + | Care Card Player Name | Role | Phone | + +------+ + | Aryan Grossman MD | PCP | | + +------+ + Reason for Visit + + + | Reason | Comments | + + + | New patient | | | consultation | | + + + Consultation (Routine) +--------+--------+ + + + + | Status | Reason | Specialty | Diagnoses / | Referred By | Referred To | | | | | Procedures | Contact | Contact | +--------+--------+ + + + + | Closed | | Urology | Diagnoses | Non-[facility] | Dawson, | | | | | Elevated | Epic Dept | Simran A, | | | | | PSA | | ACNP [address] | | | | | | | [address] | | | | | | | [address] | | | | | | | [place], [place] | | | | | | | [address] | | | | | | | Phone: | | | | | | | [phone] | | | | | | | Fax: | | | | | | | [phone] | +--------+--------+ + + + + Encounter Details +--------+---------+ + + + | Date | Type | Department | Care Team | Description | +--------+---------+ + + + | 12/10/ | Office | Urology at [facility] | Simran Osman, | Hematuria (Primary | | 2017 | Visit | [address] | ACNP [address] | Dx); Prostate cancer | | | | [place] [facility] | [address] | ([facility]) | | | | and Healing, | [place], [place] | | | | | Building | [address] | | | | | Floor [place], [place] | [phone] | | | | | [address] | | | | | | [phone] | | | +--------+---------+ + + + [...] + + + | Blood Pressure | 143/97 | 12/10/2016 11:48 AM | | | | | PDT | | + + + + + | Pulse | 99 | 12/10/2016 11:48 AM | | | | | PDT [...] + + + + | Weight | 88.5 kg (195 lb) | 12/10/2016 11:48 AM | | | | | PDT | | + + + + + | Height | - | - | | + + + + + | Body Mass Index | 28.78 | 08/01/2014 8:19 AM | | | | | PST | | + + + + + documented in this encounter Progress Notes Alfreda Obregon MA - 12/10/2016 11:40 AM PDT Review of Systems Constitutional: Positive for chills. HENT: Positive for hearing loss, congestion and tinnitus. Gastrointestinal: Positive for blood in stool, constipation, heartburn and melena. Genitourinary: Positive for frequency and urgency. Musculoskeletal: Positive for back pain and joint pain. All other systems reviewed and are negative. Physical Exam lfreda Obregon MA - 11:40 AM PDT ROS Physical Exam einaldoSimran cullen, ACNP - 12/10/2016 11:40 AM PDT UROLOGIC ONCOLOGY CLINIC New Patient Evaluation CC: Biochemical Recurrence of Prostate Cancer HISTORY OF PRESENT ILLNESS: Mr. Mani Garcia is a 51 yo WM with an elevated PSA following prostatectomy for prostate cancer. Accompanying medical records were reviewed and confirmed by the patient. He has a h istory of [place] 4+3, margin positive, +NAYELY, +SVI, [id number] (0/10 nodes) prostate cancer wh o underwent RRP with bilateral PLND on 08/01/[address] Columba Kohli. He is 2.5 years post -op. His pre-operative PSA was 86.19 ng/ml (02/20/14). He was on Casodex briefly prior to tyler duy. Leupron was recommended but he could nor afford it. A metastatic work-up pre-operativ gisela was negative with bone scan and CT scan. He had significant lower urinary tract symptoms so surgery was favored over radiation.He was last seen in our department 2 years ago. His f irst post-op PSA was 0.75 ng/ml on 10/01/14. He was recently seen by his PCP and found to have a PSA of 11.54 ng/ml (11/16/16). His most recent PSA results are noted below. His PSADT is 7 months. He has moderate voiding symptoms with an AUA Symptom Score of 23/35. He has no incontinenc e and no gross hematuria. He has diminished sexual function with a MAURICIO score of 5/25. He chart suggests recent hematuria, but he denies any gross hematuria and his UA today is negat jillian for blood. He does complain of bone pain, fatigue, insomnia, heart burn, constipation, a nd a 5-10lb unintentional weight loss. Prostate Cancer History: He was noted to have a diffusely firm and indurated prostate and a psa on 11/30/13 was 75.46. 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 Bone scan (02/21/14)and CT scan (02/21/14) were both negative. On 02/20/14, a repeat psa w as 86.19. He was initially planning XRT in [place], but he was uninsured. He instead started on Casodex. He has not had luperon secondary to cost with no insurance. He was noted to hav e significant lower urinary tract symptoms, and given his young age and symptoms, he is refe rred for prostatectomy. He had an AUA SS of 28. On 05/31/14 his psa was 28. HIs creatinine was 0.79. Medius diagnosits lab: LLB 4+3 90%, LLM 4+3 95%, la 4+3, 96%, RLB 4+3 96%, RLM 4+3 95%, RA 3+4 96% Past Medical History: Diagnosis Date Alcoholism (HCC) Anxiety Arthritis Depression GERD (gastroesophageal reflux disease) HLD (hyperlipidemia) Hypertension Insomnia Nicotine addiction Prostate cancer (HCC) TIA (transient ischemic attack) Past Surgical History Procedure Laterality Date Back surgery 1992 lumbar Hand surgery Right 2007 Family History Problem Relation Cancer Mother cervical and breast Cancer Sister Social History Social History Marital status: Single Spouse name: N/A Number of children: N/A Years of education: N/A Social History Main Topics Smoking status: Smoker, Current Status Unknown Packs/day: 0.50 Years: 24.00 Types: Cigarettes Smokeless tobacco: Never Used Comment: discussed smoking cessation, he will follow up with PCP Alcohol use 1.0 - 2.5 oz/week 2 - 5 Standard drinks or equivalent per week Drug use: None Sexual activity: Not Asked Other Topics Concern None Social History Narrative Current Outpatient Prescriptions Medication Sig bicalutamide (CASODEX) 50 mg oral tablet Take 1 tablet by mouth once daily. lisinopril 10 mg oral tablet Take 10 mg by mouth once daily. Indications: HYPERTENSION naproxen 500 mg oral tablet Take 500 mg by mouth two times daily. oxyCODONE, immediate release, 5 mg oral tablet Take 1 tablet by mouth every four hours as needed for moderate pain. (Patient not taking: Reported on 12/10/2016) senna-docusate (SENNA-S) 8.6-50 mg oral tablet Take 1 tablet by mouth two times daily. (Patient not taking: Reported on 12/10/2016) tadalafil (CIALIS) 20 mg oral tablet Take 1 tablet by mouth once daily as needed (take one half a tablet on MWF and one whole tablet on the weekeend). Not to exceed more than once daily. (Patient not taking: Reported on 12/10/2016) No current facility-administered medications for this visit. No Known Allergies REVIEW OF SYSTEMS: A complete review of systems has been performed and documented by the Ryan Powell and reviewed by me. The pertinent positives and negatives are documented. The rest are neg ative. PHYSICAL EXAM: BP 143/97 | Pulse 99 | Wt 88.5 kg (195 lb) | BMI 28.78 kg/(m^2) GEN: appears well, in NAD PSYCH: [...] (0/6) C: Prostate, prostatectomy: - Prostatic adenocarcinoma, [place] grade 4 + 3 = 7, involving [...] Grade: 4 Secondary Pattern Grade: 3 Total [place] Score: 7 Tumor Quantitation: Percent of prostate [...] cancer. IMAGING: I personally reviewed the images None IMPRESSION: Mani Garcia is a 51 y.o. WM with a history of [place] 4+3 [id number] prostate cancer who underwent RRP with bilateral PLND on 08/01/14 with a pre-operative PSA of 86.19 ng/ml. Metast atic work-up was negative pre-operatively. He has received no adjuvant or salvage therapy. H is PSA was detectable immediately post-op and has been increasing since to a current level o f 11.54 ng/ml (10/2016). His PSADT is 7 months. He has been feeling fatigued, and notes gener alized bone pain as well as an unintentional 5-10 lb weight loss. He also notes constipation and nausea. We discussed his situation at length today. Given his high PSA there is no role for salvage radiation. I think it is very likely that he could have metastatic disease. We reviewed his pathology again and his detectable PSA. I detailed the recommendation for jatinder gen deprivation therapy (ADT) in this setting given his persistent disease as evidenced by a detectable PSA. We discussed side effects of androgen deprivation therapy, including: erec tile dysfunction, loss of libido, hot flashes, change in mood/concentration, weight gain, fa tigue, loss of bone mass, and increased risk of cardiovascular events and strokes. We discu ssed the importance of adequate calcium and Vitamin D supplementation to mitigate the risk o f bone loss. We also discussed recommendations for aggressive management of BP and lipids a nd smoking cessation if he is a smoker. PLAN: 1. Casodex 50 mg x 30 days 2. Metastatic work-up (external): CT scan CAP with contrast NM bone scan 3. RTC in 1-3 weeks for a 3 month leuprolide injection 4. If metastatic work-up is positive we will arrange for patient to be seen in [facility] A total of more than 44 minutes was spent with the patient today, [...] | + +--------+ + + + | UA DIPSTICK 10 DIP | Routin | 12/10/2016 | Hematuria | Results for this | | W/O MICRO | e | 12:12 PM | | procedure are in the | | (AUTOMATED), POC | | PDT | | results section. | + +--------+ + + + documented in this encounter Results UA 10 DIP, POC (12/10/2016 12:12 PM PDT) + + + + + + | Component | Value | Ref Range | Performed | Pathologist | | | | | At | Signature | + + + + + + | COLOR (UA | Yellow | | [facility], | | | DIP), POC | | | POINT OF | | | | | | CARE TESTS | | + + + + + + | APPEARANCE | Clear | | [facility], | | | (UA DIP), | | | POINT OF | | | POC | | | CARE TESTS | | + + + + + + | LEUKOCYTES | Negative | Negative | [facility], | | | (UA DIP), | | | POINT OF | | | POC | | | CARE TESTS | | + + + + + + | NITRITES | Negative | Negative | [facility], | | | (UA DIP), | | | POINT OF | | | POC | | | CARE TESTS | | + + + + + + | UROBILINOGE | 1.0 | 0.2 - 1.0 | [facility], | | | N (UA DIP), | | E.U./dL | POINT OF | | | POC | | | CARE TESTS | | + + + + + + | PROTEIN (UA | Negative | Neg - Trace | [facility], | | | DIP), POC | | mg/dL | POINT OF | | | | | | CARE TESTS | | + + + + + + | PH (UA | 7.0 | 5.0 - 8.0 | [facility], | | | DIP), POC | | | POINT OF | | | | | | CARE TESTS | | + + + + + + | BLOOD (UA | Negative | Negative | [facility], | | | DIP), POC | | | POINT OF | | | | | | CARE TESTS | | + + + + + + | SPECIFIC | 1.020 | 1.005 - 1.030 | [facility], | | | GRAVITY (UA | | | POINT OF | | | DIP), POC | | | CARE TESTS | | + + + + + + | KETONES (UA | Negative | Negative mg/dL | [facility], | | | DIP), POC | | | POINT OF | | | | | | CARE TESTS | | + + + + + + | BILIRUBIN | Negative | Negative | [facility], | | | (UA DIP), | | | POINT OF | | | POC | | | CARE TESTS | | + + + + + + | GLUCOSE (UA | Negative | Negative - | [facility], | | | DIP), POC | | Trace mg/dL | POINT OF | | | | | | CARE TESTS | | + + + + + + + + | Specimen | + + | Urine - Urine | | (substance) | + + + + + + + | Performing | Address | City/State/Zipcode | Phone Number | | Organization | | | | + + + + + | [facility] | [address] | [place] [address] | | | OF CARE TESTS | | | | + + + + + documented in this encounter Visit Diagnoses + + | Diagnosis | + + | Hematuria - Primary | + + | Prostate cancer (HCC) Malignant neoplasm of prostate | + + documented in this encounter"
--- OUTSIDE RECORDS SUMMARY | ~2020-06-06 | XMS | Encounter Summary ---
Demographics + + + | Address | NEED ADDRESS | | | [place] [address] | + + + | Home Phone | | + + + | Preferred Language | Unknown | + + + | Marital Status | Single | + + + | Cheondoism Affiliation | Unknown | + + + [...] Hector Garcia | ECON | [place] [address] | | + + + + + Care Team Providers + +------+ + | Care Meter Reading Clerk Name | Role | Phone | + +------+ + | Aryan Grossman MD | PCP | | + +------+ + Encounter Details +--------+ + + + + | Date | Type | Department | Care Team | Description | +--------+ + + + + | 05/31/ | Hospital | [facility] | Aryan Grossman, | Prostate cancer | | 2014 | Encounter | [facility] | MD [address] | ([facility]) | | | | [address] [place] | [address] [place], | | | | | [place], [place] | [place] [address] | | | | | [address] | [phone] | | | | | [phone] | | | +--------+ + + + [...] + | Yes | | 0.0 | Tapering off, 3 | | | | | beers per week | + + +---------+ [...] +---------+ + + | bicalutamide | Take 50 mg by mouth | | 0 | | | | (CASODEX) 50 mg | Daily. | | | | 4 | | tablet | | | | [...] | One po qd for two | 60 | 2 | 05/31/20 | | | (ZOLOFT) 25 mg | weeks then two po qd | tablet | | 14 | 4 | | tabletIndications: | thereafter. | | | | | | Depression | | | | | | + + + +---------+ + + documented as of this encounter Progress Notes Morasch, Aryan G, MD - 05/31/2014 11:41 AM PDT Quick Note: Ok for ma to notify patient that he has somewhat abnormal labs and would like to discuss w quinnin 2 weeks, Pt needs UA in the interim. Ordered. thanks documented in thi s encounter Plan of Treatment Not on filedocumented as of this encounter Procedures + +--------+ + + + | Procedure Name | Priori | Date/Time | Associated Diagnosis | Comments | | | ty | | | | + +--------+ + + + | CBC WITH | Routin | 05/31/2014 | Prostate cancer | Results for this | | DIFFERENTIAL | e | 10:59 AM | (HCC) | procedure are in the | | | | PDT | | results section. | + +--------+ + + + | PSA, DIAGNOSTIC | Routin | 05/31/2014 | Prostate cancer | Results for this | | | e | 10:59 AM | (HCC) | procedure are in the | | | | PDT | | results section. | + +--------+ + + + | COMPREHENSIVE | Routin | 05/31/2014 | Prostate cancer | Results for this | | METABOLIC PANEL | e | 10:59 AM | (HCC) | procedure are in the | | | | PDT | | results section. | + +--------+ + + + documented in this encounter Results Comprehensive Metabolic Panel (05/31/2014 10:59 AM PDT) + + + + + [...] + + + + | CO2 | 25 | 24 - 31 mmol/L | [facility] [...] + + + + | Glucose | 107 | 70 - 109 mg/dL | [facility] | | | | | [facility] | | | | | | [facility]ICAL | | | | | | C[facility] - | | | | | | LABORATORY | | + + + + + + | BUN | 13 | 7 - 18 mg/dL | [facility] | | | | | | [facility] | | | | | | [facility] | | | | | | C[facility] - | | | | | | LABORATORY | | + + + + + + | Creatinine | 0.79 | 0.60 - 1.30 | [facility] | [...] mL/min/1.73m2 | [facility] | | | [place] | RATE,ESTIMATED | | MEDICAL | | | | mL/min/[id number] than | | CENTER - | | [...] 4.2 | 3.2 - 5.0 g/dL | [facility] | | [facility] | | | | | [facility] | | | | | | C[facility] - | | | | | | LABORATORY | | + + + + + + | Bilirubin | 0.8 | 0.1 - 1.5 mg/dL | [facility] | | | Total | | | [facility] | | | | | | MEDICAL | | | | | | CENTER - | | | | | | LABORATORY | | + + + + + + | Total | 7.2 | 6.0 - 7.8 g/dL | [facility] [...] + + + + | ALT | 29 | 6 - 45 U/L | [facility] | | | | | | [facility] | | | | | | MEDICAL | | | | | | CENTER - | | | | | | LABORATORY | | + + + + + + | Alkaline | 85 | 40 - 110 U/L | [facility] | | | Phosphatase | | | [facility] | | | | | | MEDICAL | | | | | | CENTER - | | | | | | LABORATORY | | + + + + + + | Globulin | 3.0 | g/dL | [facility] | | | | | | [facility] | | | | | | MEDICAL | | | | | | CENTER - | | | | | | LABORATORY | | + + + + + + | Albumin/Nancy | 1.4 | | [facility] | | | bulin Ratio | | | [facility] | | | | | | MEDICAL | | | | | | CENTER - | | | | | | LABORATORY | | + + + + + + | BUN/Creatin | 16.5 | | [facility] | | | ine Ratio | | | [facility] | | [...] [address] | [place] | [phone] | | [facility] | | [address] | | | - LABORATORY | | | | + + + + + | [facility] | [address] | [place] | | | [facility] | | [address] | | | - LABORATORY | | | | + + + + + CBC with Differential (05/31/2014 10:59 AM PDT) + + + + + + | Component | Value | Ref Range | Performed | Pathologist | | | | | At | Signature | + + + + + + | White Blood | 11.2 (H) | 4.0 - 11.0 K/uL | [facility] | | | Cells | | | [facility] | | | | | | MEDICAL | | | | | | CENTER - | | | | | | LABORATORY | | + + + + + + | Red Blood | 4.68 | 4.30 - 5.70 | [facility] | | | Cells | | M/uL | [facility] | | | | | | MEDICAL | | | | | | CENTER - | | | | | | LABORATORY | | + + + + + + | Hemoglobin | 16.4 | 13.5 - 18.0 | [facility] | | | | | g/dL | [facility] | | | | | | MEDICAL | | | | | | CENTER - | | | | | | LABORATORY | | + + + + + + | Hematocrit | 48.0 | 40.0 - 51.0 % | [facility] | | | | | | [facility] | | | | | | MEDICAL | | | | | | CENTER - | | | | | | LABORATORY | | + + + + + + | MCV | 102.4 (H) | 83.0 - 101.0 fL | [facility] | | | | | | [facility] | | | | | | MEDICAL | | | | | | CENTER - | | | | | | LABORATORY | | + + + + + + | MCH | 35.1 (H) | 28.0 - 35.0 pg | [facility] | | | | | | [facility] | | | | | | MEDICAL | | | | | | CENTER - | | | | | | LABORATORY | | + + + + + + | MCHC | 34.2 | 32.0 - 36.0 | [facility] | [...] + + + + | Platelet | 327 | 140 - 440 K/uL | [facility] [...] + + + + | % | 72.8 | 45.0 - 82.0 % | [facility] | | | Neutrophils | | | [facility] | | | | | | MEDICAL | | | | | | CENTER - | | | | | | LABORATORY | | + + + + + + | % | 18.6 (L) | 20.0 - 45.0 % | [...] + + | % | 0.9 | 0.0 - 5.0 % | [facility] | | | Eosinophils | | | [facility] | | | | | | MEDICAL | | | | | | CENTER - | | | | | | LABORATORY | | + + + + + + | % Basophils | 0.9 | 0.0 - 1.0 % | [facility] | | | | | | [facility] | | | | | | MEDICAL | | | | | | CENTER - | | | | | | LABORATORY | | + + + + + + | Absolute | 8.20 | 1.80 - 8.50 | [facility] | | | Neutrophils | | K/uL | [facility] | | | | | | MEDICAL | | | | | | CENTER - | | | | | | LABORATORY | | + + + + + + | Absolute | 2.10 | 0.60 - 3.20 | [facility] | | | Lymphocytes | | K/uL | [facility] | | | | | | MEDICAL | | | | | | CENTER - | | | | | | LABORATORY | | + + + + + + | Absolute | 0.80 | 0.00 - 1.00 | [facility] | [...] + | [facility] | [address] | [place] | [phone] | | [facility] | | [address] | | | - LABORATORY | | | | + + + + + | [facility] | [address] | [place], [place] | | | [facility] | | [address], [facility] | | | - LABORATORY | | | | + + + + + PSA, Diagnostic (05/31/2014 10:59 AM PDT) + + + + + + | Component | Value | Ref Range | Performed | Pathologist | | | | | At | Signature | + + + + + + | PSA | 20.94 (H) | <=4.00 ng/mL | [facility] | | [...] [address] | [place] | [phone] | | [facility] | | [address] | | | - LABORATORY | | | | + + + + + | [facility] | [address] | [place], [place] | | | [facility] | | [address], [facility] | | | - LABORATORY | | | | + + + + + documented in this encounter Visit Diagnoses + + | Diagnosis | + + | Prostate cancer (HCC) Malignant neoplasm of prostate | + + documented in this encounter"
--- OUTSIDE RECORDS SUMMARY | ~2020-06-06 | XMS | Encounter Summary ---
Demographics + + + | Address | NEED ADDRESS | | | [place] [address] | + + + | Home Phone [...] Hector Garcia | ECON | [place] [address] | | + + + + + Care Team Providers + +------+ + | Care Embedded Developer Name | Role | Phone | + +------+ + | Loi Frausto PA-C | PCP | | + +------+ + Reason for Visit +---------+ + | Reason | Comments | +---------+ + | Post Op | Post Op Left Carpal Tunnel Release DOS:03/10/2018 *Suture | | | Removal* | +---------+ + Encounter Details +--------+ + + + + | Date | Type | Department | Care Team | Description | +--------+ + + + + | 03/23/ | Clinical | [facility] | Christian Santana | Visit for suture | | 2018 | Support | ORTHOPEDIC SURGERY | MD [address] | removal (Primary | | | | [address] | [place] | Dx); S/P carpal | | | | [place] | [id number] | tunnel release | | | | [address] | | | | | | [phone] | | | +--------+ + + + [...] documented as of this encounter Progress Notes Myrna Rankin Cert MA - 03/23/2018 9:30 AM YOANDonkarina came in this morning for S uture Removal. Mani incision is well approximated, clean, and dry. No redness. Per Dr.Will min's verbal order I removed the sutures. The patient was given another appointment with Dr. Hurst on 03/31/2018 to follow up with . The patient was advised to notify the august koch with any questions between now his post op appointment with Electronically si gned by Mireya Lim MA at 03/23/2018 1:36 PM PDTdocumented in this encount er Plan of Treatment Not on filedocumented as of this encounter Visit Diagnoses + + | Diagnosis | + + | Visit for suture removal - Primary Encounter for removal of sutures | + + | S/P carpal tunnel release Other postprocedural status | + + documented in this encounter"
--- OUTSIDE RECORDS SUMMARY | ~2020-06-06 | XMS | Encounter Summary ---
Demographics + + + | Address | NEED ADDRESS | | | [place] [address] | + + + | Home Phone [...] Hector Garcia | ECON | [place] [address] | | + + + + + Care Team Providers + +------+ + | Care Chicken Tender Name | Role | Phone | + +------+ + | Aryan Grossman MD | PCP | | + +------+ + Reason for Visit + + + | Reason | Comments | + + + | Follow-up | | + + + | Results | Review PSA | + + + Encounter Details +--------+---------+ + + + | Date | Type | Department | Care Team | Description | +--------+---------+ + + + | 04/14/ | Office | [facility] | Aryan Grossman, | Depression (Primary | | 2015 | Visit | MEDICINE [address] [place] [address] | [address] | Dx); Leukocytosis; | | | | [address], | [address], | Anxiety | | | | [place] [address] | [place] [address] | | | | | [phone] | [phone] | | | | | | | [...] + + + | Blood Pressure | 124/78 | 04/14/2015 8:58 AM | | | | | PDT | | + + + + + | Pulse | 111 | 04/14/2015 8:58 AM | | | | | PDT | | + + + + + | Temperature | 36.9 C (98.4 F) | 04/14/2015 8:58 AM | | | | | PDT | | + + + + + | Respiratory Rate | 16 | 04/14/2015 8:58 AM | | | | | PDT | | + + + + + | Oxygen Saturation | 97% | 04/14/2015 8:58 AM | | | | | PDT | | + + + + + | Inhaled Oxygen | - | - | | | Concentration | | | | + + + + + | Weight | 86.6 kg (191 lb) | 04/14/2015 8:58 AM | | | | | PDT | | + + + + + | Height | 175.3 cm (5' 9") | 04/14/2015 8:58 AM | | | | | PDT | | + + + + + | Body Mass Index | 28.21 | 04/14/2015 8:58 AM | | | | | PDT | | + + + + + documented in this encounter Progress Notes Aryan Grossman MD - 04/14/2015 9:41 AM PDTFormatting of this note might be different f rom the original. Subjective: Patient ID: [place] Garcia is a 49 y.o. male. HPI Depression and Anxiety, He is just trembling. He is worried all the time about something. 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 Some Fatigue. Moodiness, Some crying. Guilt. Denies HI or SI. He took the lexapro in the past but him dizzy. He is doing fine but 150mg makes him lazy. He is going to take the 100mg dose. S he is having some trouble with a newer girlfriend He is not drinking at this point which is making his anxiety worse. He has not drank for a month. He has has an alcohol class starts this . His ankle bracelet is being beka marimar the . Leukocytosis related to recent tooth abcess. He is seeing Dr Enriquez. This is improved on abx. PMH: HTN Hyperlipidemia Alcoholism PSH: Right thumb 2007 Lumbar Diskectomy 1992 Fhx: Mom 64 Ovarian Cancer Dad 50 of MS complications Sister 54, recurrent lymphoma,. First diagnosed with cancer in 40's Shx: Born in [place] , 16 year old son Lives in [place] since 2012, Grew up in [place] heavy [...] back pain, no joint swelling and No arthralgias. No joint pain Skin: Neg for color change,no rash and No wounds, no Strange moles Neurological: Neg for dizziness, no Weakness,no light-headedness, no numbness and no headaches. Hematological: Neg for adenopathy. Does not bruise/bleed easily. Psychiatric/Behavioral: Neg for suicidal ideas,no confusion and no agitation. some Depression, some anxiety,no sleep problems Objective: Physical Exam Heent, WNL, No carotid bruit Chest CTAB Heart RR&R /s M Abd S,NT,ND,BS+ Ext, no CCor E Neuro Non-focal Lymph, no cervical, axillary, inguinal adenopathy Musculoskeletal, no gross deformity or loss or range of motion Skin, no gross lesions Assessment: 1. Depression 2. Leukocytosis CBC with Differential Plan: Xanax trial. Continue the zoloft at 100mg daily. documented in this encounter Plan of Treatment Not on filedocumented as of this encounter Results CBC with Differential (04/14/2015 [...] | | | | | g/dL | [facility] | | | | [...] | | | Neutrophils | | | [facility] | | [...] PROVIDEMIRNAE | | | Basophils | | K/Velasquez | [facility] | | | | [...] [address] | RONNY Torres | [phone] | | [facility] | | [address] | | | - LABORATORY | | | | + + + + + documented in this encounter Visit Diagnoses + + | Diagnosis | + + | Depression - Primary Depressive disorder, not elsewhere classified | + + | Leukocytosis Leukocytosis, unspecified | + + | Anxiety Anxiety state, unspecified | + + documented in this encounter
--- OUTSIDE RECORDS SUMMARY | ~2020-06-06 | XMS | Encounter Summary ---
Demographics + + + | Address | [address] | | | [place] [address] | + + + | Home Phone [...] + + | Author | [facility] | + + + | Organization | [facility] | + + + | Address | Unknown | + + + | Phone | Unavailable | + + + Support + + +---------+ + | Name | Relationship | Address | Phone | + + +---------+ + | Servando Boyer | ECON | Unknown | | + + +---------+ + Care Team Providers + +------+ + | Care Magneto Repairer Name | Role | Phone | + +------+ + | Aryan Grossman MD | PCP | | + +------+ + Encounter Details +--------+ + + + + | Date | Type | Department | Care Team | Description | +--------+ + + + + | 07/22/ | Document-Sc | UNKNOWN DEPARTMENT | Unknown . | | | 2013 | anned | [address] | | | | | | [address] | | | | | | [place], [place] | | | | | | [address] | | | +--------+ + + + [...] documented as of this encounter Miscellaneous Notes Scan - Analia Acevedo - 07/22/2014 3:42 PM PDTElectronically signed by Analia Acevedo at 3:42 PM PDTdocumented in this encounter Plan of Treatment Not on filedocumented as of this encounter Visit Diagnoses Not on filedocumented in this encounter"
--- OUTSIDE RECORDS SUMMARY | ~2020-06-06 | XMS | Encounter Summary ---
Demographics + + + | Address | NEED ADDRESS | | | [place] [address] | + + + | Home Phone [...] Hector Garcia | ECON | [place] [address] | | + + + + + Care Team Providers + +------+ + | Care Inside Sales Account Manager Name | Role | Phone | + +------+ + | Aryan Grossman MD | PCP | | + +------+ + Reason for Visit + +--------+ + | Reason | Onset | Comments | | | Date | | + +--------+ + | Medication Refill | 09/04/ | | | | 2013 | | + +--------+ + Encounter Details +--------+--------+ + + + | Date | Type | Department | Care Team | Description | +--------+--------+ + + + | 09/04/ | Refill | [facility] | Aryan Grossman, | Medication Refill | | 2013 | | MEDICINE [address] | MD [address] | | | | | [place], | [address], | | | | | [place] [address] | [place] [address] | | | | | [phone] | | | | | | | [...] this encounter Miscellaneous Notes Telephone Encounter - Yohana Donis RN - 09/04/2014 11:35 AM PSTPatient called for refi lls on Sertraline and Lisinopril Requested Sertraline be changed to 100 mg tablets taking 1 a day This was done documented in this e ncounter Plan of Treatment Not on filedocumented as of this encounter Visit Diagnoses + + | Diagnosis | + + | Depression - Primary Depressive disorder, not elsewhere classified | + + | HTN (hypertension) Unspecified essential hypertension | + + documented in this encounter"
--- OUTSIDE RECORDS SUMMARY | ~2020-06-06 | XMS | Encounter Summary ---
Demographics + + + | Address | NEED ADDRESS | | | [place] [address] | + + + | Home Phone [...] Author + + + | Author | [facility] | | | and [place] | + + + | Organization | [facility] | | [...] Hector Garcia | ECON | [place] [address] | | + + + + + Care Team Providers + +------+ + | Care Building Wrecker Name | Role | Phone | + +------+ + | Aryan Grossman MD | PCP | | + +------+ + Reason for Visit +---------+--------+ + | Reason | Onset | Comments | | | Date | | +---------+--------+ + | Results | 02/21/ | | | | 2013 | | +---------+--------+ + Encounter Details +--------+ + + + + | Date | Type | Department | Care Team | Description | +--------+ + + + + | 02/21/ | Telephone | [facility] | Aryan Grossman, | Results | | 2013 | | MEDICINE [address] [place] [address] | [address] | | | | | [address], | [address], | | | | | [place] [address] | [place] [address] | | | | | [phone] | [phone] | | | | | | | [...] this encounter Miscellaneous Notes Telephone Encounter - Kelley Rasmussen RN - 02/21/2014 9:58 AM PDTPatient asked for blood type - done yesterday- given information from lab results. documented in this encounter Plan of Treatment Not on filedocumented as of this encounter Visit Diagnoses Not on filedocumented in this encounter"
--- OUTSIDE RECORDS SUMMARY | ~2020-06-06 | XMS | Encounter Summary ---
Demographics + + + | Address | NEED ADDRESS | | | [place] [address] | + + + | Home Phone [...] Hector Garcia | ECON | [place] [address] | | + + + + + Care Team Providers + +------+ + | Care Director Of Estate Name | Role | Phone | + +------+ + | Loi Frausto PA-C | PCP | | + +------+ + Encounter Details +--------+ + + + + | Date | Type | Department | Care Team | Description | +--------+ + + + + | 08/30/ | Hospital | [facility] | Antony Grider, | Chronic right | | 2018 | Encounter | MED CTR XRAY [address] | MD [address] | shoulder pain | | | | [place] | [place], [place] | | | | | [place] [address] | [address] | | | | | [phone] | | | +--------+ + + + [...] + | XR SHOULDER RIGHT 2 | Routin | 08/30/2018 | Chronic right | Results for this | | + VW | e | 8:59 AM | shoulder pain | procedure are in the | | | | PST | | results section. | + +--------+ + + + documented in this encounter Results XR Shoulder Right 2 [...] | | | Dictated and Signed by: Melcohr Marie MD Electronically signed: | | | [...] | Diagnosis | + + | Chronic right shoulder pain Pain in joint, shoulder region | + + documented in this encounter"
--- OUTSIDE RECORDS SUMMARY | ~2020-06-06 | XMS | Encounter Summary ---
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[place] | [phone] | | | | | neoplasm of | [address] | Fax: | | | | | bone (HCC) | Phone: | [phone] | | | | | Procedures | [phone] | | | | | | IN DENOSUMAB | Fax: | | | | | | INJECTION, | [phone] | | | | | | 1 MG | | | +--------+--------+ + + + + Encounter Details +--------+ + + + + | Date | Type | Department | Care Team | Description | +--------+ + + + + | 11/23/ | Hospital | [facility] | Jessi Albrightdakota Powell, | No Show | | 2018 | Encounter | MED CTR CHEMO | MD [address] | | | | | INFUSION [address] [place], | | | | | [place], | [place] [address] | | | | | [place] [address] | [phone] | | | | | [phone] | | | +--------+ + + + [...]
--- OUTSIDE RECORDS SUMMARY | ~2020-06-06 | XMS | Encounter Summary ---
Demographics + + + | Address | NEED ADDRESS | | | [place] [address] | + + + | Home Phone [...] + | Hector Garcia | ECON | [place] [address] | | + + + + + Care Team Providers + +------+ + | Care Fork Assembler Name | Role | Phone | [...] | | | | | | | Special | | | | | | | screening | | | | | | | for | | | | | | | malignant | | | | | | | neoplasms, | | | | | | | colon | | | | | | | (Z12.11), | | | | | | | Anxiety and | | | | | | | depression | | | | | | | (F41.9, | | | | | | | F32.9), | | | | | | | Alcoholism | | | | | | | (HCC) | | | | | | | (F10.20) | | | | | | | Procedures | | | | | | | NM | | | | | | | COLONOSCOPY | | | | | | | FLX DX | | | | | | | W/COLLJ SPEC | | | | | | | WHEN PFRMD | | | | | | | NM | | | | | | | COLONOSCOPY | | | | | | | W/BIOPSY | | | | | | | SINGLE/MULTI | | | | | | | PLE NM | | | | | | | COLSC FLX | | | | | | | W/RMVL OF | | | | | | | TUMOR POLYP | | | | | | | LESION SNARE | | | | | | | TQ NM | | | | | | | ANESTH,INTES | | | | | | | TIAN,SCOPE,L | | | | | | | OW | | | | | | | COLONOSCOPY | | | +--------+--------+ + + + + Encounter Details +--------+---------+ + + + | Date | Type | Department | Care Team | Description | +--------+---------+ + + + | 06/10/ | Surgery | [facility] | Saul Valentine MD | COLONOSCOPY | | 2017 | | MED CTR [facility] OP | [address] | | | | | [address] | [place], [place] | | | | | [place] | [address] | | | | | [address] | [phone] | | | | | [phone] | | | +--------+---------+ + + + [...] + + + | Blood Pressure | 195/122 | 06/10/2017 11:45 AM | | | | | PDT | | + + + + + | Pulse | 92 | 06/10/2017 11:45 AM | | | | | PDT | | + + + + + | Temperature | 36.7 C (98.1 F) | 06/10/2017 11:18 AM | | | | | PDT | | + + + + + | Respiratory Rate | 16 | 06/10/2017 11:45 AM | | | | | PDT | | + + + + + | Oxygen Saturation | 100% | 06/10/2017 11:45 AM | | | | | PDT | | + + + + + | Inhaled Oxygen | - | - | | | Concentration | | | | + + + + + | Weight | 83 kg (183 lb) | 06/10/2017 9:37 AM | | | | | PDT | | + + + + + | Height | 175.3 cm (5' 9") | 06/10/2017 9:37 AM | | | | | PDT | | + + + + + | Body Mass Index | 27.02 | 06/10/2017 9:37 AM | | | | | PDT | | + + + + + documented in this encounter Discharge Instructions Instructions Saul Valentine MD - 06/09/2017Patient Discharge Instructions after an Endosco py Procedure ? You may resume your regular diet after discharge. ? Do not drive, operate machinery, make critical decisions or do activities that require co ordination or balance for 24hrs. ? Resume normal medications unless otherwise instructed. ? If biopsies were taken, the physician s office will contact you within 7-10 days. ? If a colonoscopy was performed, then you may continue to expel large amounts of air from your rectum. Please call the physician who did your procedure at [phone] if you have any questions or experience any of the following: ? Increasing abdominal pain, nausea, or vomiting. ? Chills and fever over 101F. ? New abdominal swelling or bloating. ? Signs of rectal bleeding (black or red stool). If you cannot get a hold of your physician, then call the [facility] [phone] . If necessary, report to the Emergency Department at [facility]. Quit smoking: If you smoke or have smoked within the last year, quitting is the most import ant thing you can do to protect and improve your health. documented in this encounter Medications at Time [...] documented as of this encounter H&P Notes Saul Valentine MD - 06/10/2017 10:50 AM PDTPatient interviewed, history and physical, symp toms reviewed VS signs noted, no change from previous H&P or assessment and plan.Electronic ally signed by Saul Valentine MD at 06/10/2017 10:50 AM PDTSaul Valentine MD - 06/09/2017 9:03 AM PDT PRE-ENDOSCOPY HISTORY AND PRE-SEDATION ASSESSMENT PATIENT NAME: Mani Garcia : 1965 TODAY'S DATE: 06/09/2017 PLANNED PROCEDURE: colonoscopy PERTINENT HISTORY/INDICATION FOR PROCEDURE: Mani Garcia is a 52 y.o. male who is under going colonoscopy for colon cancer screening. PAST HISTORY: Past Medical History: Diagnosis Date Alcoholism (HCC) Alopecia Depression Elevated PSA GERD (gastroesophageal reflux disease) Hyperlipemia Hypertension Nicotine addiction Organic insomnia NAHUN (obstructive sleep apnea) Prostate cancer (HCC) 11/24/2013 Radical prostatectomy Stroke (HCC) 2013 Left sided numbness and weakness PAST SURGICAL HISTORY Past Surgical History: Procedure Laterality Date LUMBAR DISCECTOMY 1992 ORTHOPEDIC SURGERY 2007 Right thumb PROSTATECTOMY 08/01/14 HOME MEDS: Scheduled Meds: Continuous Infusions: PRN Meds:. ALLERGIES No Known Allergies ASA CLASSIFICATION: Class 3 - A patient with severe systemic disease that limits activity b ut is not incapacitating EXAMINATION: There were no vitals taken for this visit. General: Alert and oriented Throat: Normal Lungs: Clear Heart: Regular rate and rhythm with out significant murmur Abdomen: flat, normal bowel sounds. Soft, nontender 1. Available medical records have been reviewed. 2. Medication list reviewed. IMPRESSION: . Patient appropriate for procedure. PLAN: 1. Proceed with procedure as stated above with moderate sedation/analgesia 2. Procedure, indications, risks and alternatives explained to patient/family and they agre ed to proceed and consent was signed. 3. Patient will be reevaluated immediately (1-2 minutes) before sedation administration and approved for the plan as stated above. Electronically Signed by: Saul Valentine MD 06/09/2017 [facility] Portions of this chart may have been created with [employer] voice recognition software. Occasi onal wrong-word or sound-alike substitutions may have occurred due to the inherent avila itations of voice recognition software. Please read the chart carefully and recognize, using context, where these substitutions have occurred documented in this encounter Miscellaneous Notes D-C Instructions Provation - Saul Valentine MD - 06/10/2017 10:47 AM PDTDischarge Instruct ions for Colonoscopy Exams Patient: Mani Garcia : 1965 Acct: [id number] Exam Date: Saturday, June 10, 2017 Doctor: Saul Valentine MD You have had an examination of the gastrointestinal tract. The chances of difficulty foll owing this procedure are minimal. The following instructions will assist you in your recov bozena. ACTIVITIES: Rest quietly until sedation wears off. DO NOT drive a motor vehicle or operate machinery for 24 hours after sedation. Be cautious making critical decisions for 24 hours after sedation. DIET: If throat has been sprayed, do not eat or drink for 1 hour after. Start with a swallow of tap water, if you experience any lack of sensation in your throat, wait another 30 - 60 min utes and start with water again. Once swallowing has returned to normal you may resume your usual diet unless otherwise instructed by your physician. DISCOMFORT: If you had a bowel exam, you may have some abdominal discomfort from the air put into your bowel during the exam. Moving about will help you pass this air. Sometimes the medication s given to you during the exam can aggravate the veins. The chemical irritation can cause inflammation or pain along the arm with redness, swelling and warmth. This does not mean t here is an infection. You can treat the affected area by applying warm,wet compresses (tow els) 4 times a day for 20 minutes at a time until inflammation is resolved. REPORT TO YOUR DOCTOR: Unusual abdominal pain Chest pain or unusual shortness of breath Shoulder pain Nausea, vomiting Fever over 100 degrees, chills Signs of rectal bleeding (red or black stools) Any concern you have resulting from procedure You may reach your physician at Work: . If unable to reach your physician, call [facility] Emergency Department at Ext. [phone] Your doctor recommends these additional instructions: You have a contact number available for emergencies. The signs and symptoms of potential delayed complications were discussed with you. You may return to normal activities tomorro w. Written discharge instructions were provided to you. Resume your previous diet. Continue your present medications. We are waiting for your pathology results. Your physician has recommended a repeat colonoscopy in three years because the bowel prepa ration was suboptimal. Return to your GI clinic as needed. Do not take any aspirin, ibuprofen (including Advil, Motrin or Nuprin), naproxen (includin g Aleve), or any other non-steroidal anti-inflammatory drugs for 2 weeks. The findings and recommendations have been discussed with you. These instructions have bee n explained to the patient and/or escort. A copy has been given to the patient/escort. Nurse Signatur e Patient Signature Escort Signatu re Date Saul Valentine MD 06/10/2017 11:15:51 AM This report has been signed electronically.Electronically signed by Saul Valentine MD at 11:16 AM PDTdocumented in this encounter Plan of Treatment Not on filedocumented as of this encounter Procedures + +--------+ + + + | Procedure Name | Priori | Date/Time | Associated Diagnosis | Comments | | | ty | | | | + +--------+ + + + | COLONOSCOPY | | 06/10/2017 | Special screening | | | | | 10:48 AM | for malignant | | | | | PDT | neoplasms, colon | | | | | | (Z12.11), Anxiety | | | | | | and depression | | | | | | (F41.9, F32.9), | | | | | | Alcoholism (HCC) | | | | | | (F10.20) | | + +--------+ + + + | COLONOSCOPY | Routin | 06/10/2017 | | Results for this | | | e | 10:47 AM | | procedure are in the | | | | PDT | | results section. | + +--------+ + + + | SURGICAL PATHOLOGY | Routin | 06/10/2017 | | Results for this | | EXAM | e | 12:00 AM | | procedure are in the | | | | PDT | | results section. | + +--------+ + + + documented in this encounter Results COLONOSCOPY (06/10/2017 10:47 AM PDT) + + | Specimen | + + | | + + + + -+ | Narrative | Performed At | + + -+ | | [facility] | | GastroenterologyPatient Name: Mani PlasenciaArturrocedgwen Date: 06/10/2017 | [facility] | | 10:47 AMMRN: [id number] #: [id number] of : | | | 1965Admit Type: AmbulatoryAge: 52Room: [facility] 01Gender: MaleNote | | | Status: FinalizedAttending MD: Saul Valentine , [facility]rocedure: | | | ColonoscopyIndications: Screening for colorectal | | | malignant neoplasmProviders: Saul Valentine MD, Tees Toh | | | ARLETH Correia, Ayan Bates, [facility], | | | Parveen Tay MD (Anesthesia Staff)Medicines: Monitored | | | Anesthesia CareComplications: No immediate | | | complications.Procedure: Pre-Anesthesia Assessment: - | | | Prior to the procedure, a History and Physical was performed, and | | | patient medications and allergies were reviewed. The patient is | | | competent. The risks and benefits of the procedure and the | | | sedation options and risks were discussed with the patient. All | | | questions were answered and informed consent was obtained. | | | Patient identification and proposed procedure were verified by | | | the physician, the nurse, the anesthesiologist and the | | | machining technician in the pre-procedure area in the endoscopy suite. | | | Mental Status Examination: alert and oriented. Airway | | | Examination: normal oropharyngeal airway and neck mobility. | | | Respiratory Examination: clear to auscultation. CV Examination: | | | normal. Prophylactic Antibiotics: The patient does not require | | | prophylactic antibiotics. Prior Anticoagulants: The patient | | | has taken no previous anticoagulant or antiplatelet agents. ASA | | | Grade Assessment: III - A patient with severe systemic | | | disease. After reviewing the risks and benefits, the patient | | | was deemed in satisfactory condition to undergo the procedure. The | | | anesthesia plan was to use monitored anesthesia care (MAC). | | | Immediately prior to administration of medications, the patient | | | was re-assessed for adequacy to receive sedatives. The heart | | | rate, respiratory rate, oxygen saturations, blood pressure, | | | adequacy of pulmonary ventilation, and response to care were | | | monitored throughout the procedure. The physical status of the | | | patient was re-assessed after the procedure. After I obtained | | | informed consent, the scope was passed under direct vision. | | | Throughout the procedure, the patient's blood pressure, pulse, | | | and oxygen saturations were monitored continuously. The Colonoscope | | | was introduced through the anus and advanced to the cecum, | | | identified by appendiceal orifice and ileocecal valve. The | | | colonoscopy was performed without difficulty. The patient | | | tolerated the procedure well. The quality of the bowel | | | preparation was fair.Findings: The perianal and digital rectal | | | examinations were normal. A 3 mm polyp was found in the sigmoid | | | colon. The polyp was sessile. The polyp was removed with a cold | | | biopsy forceps. Resection and retrieval were complete. | | | Verification of patient identification for the specimen was | | | done by the physician and nurse using the patient's name and | | | date. Estimated blood loss was minimal. No other significant | | | abnormalities were identified in a careful examination of the | | | remainder of the colon. Non-bleeding internal hemorrhoids were | | | found during retroflexion. The hemorrhoids were small. No | | | additional abnormalities were found on retroflexion.Impression: | | | - Preparation of the colon was fair. - One 3 mm polyp in the | | | sigmoid colon, removed with a cold biopsy forceps. Resected and | | | retrieved. - Non-bleeding internal hemorrhoids.Recommendation: | | | - Patient has a contact number available for emergencies. The | | | signs and symptoms of potential delayed complications were | | | discussed with the patient. Return to normal activities | | | tomorrow. Written discharge instructions were provided to the | | | patient. - Resume previous diet. - Continue present | | | medications. - Await pathology results. - Repeat | | | colonoscopy in 3 years because the bowel preparation was | | | suboptimal. - Return to GI clinic PRN. - No aspirin, | | | ibuprofen, naproxen, or other non-steroidal anti-inflammatory | | | drugs for 2 weeks. - The findings and recommendations were | | | discussed with the patient.Saul Valentine MD06/10/2017 11:15:51 | | | AMThis report has been signed electronically.Number of Addenda: 0Note | | | Initiated On: 06/10/2017 10:47 AMScope Withdrawal Time: 0 hours 10 | | | minutes 32 seconds Total Procedure Duration: 0 hours 19 minutes 35 | | | seconds Scope In: 10:53:03 AMScope Out: 11:12:38 AM [facility] | | | [facility], [address] [place] [address] | | | [phone] | | | - Repeat colonoscopy in 3 years because the bowel preparation was | | | suboptimal. | | | - Return to GI clinic PRN. | | | - No aspirin, ibuprofen, naproxen, or other non-steroidal | | | anti-inflammatory drugs for 2 weeks. | | | - The findings and recommendations were discussed with the patient. | | |Saul Valentine MD | | |06/10/2017 11:15:51 AM | | |This report has been signed electronically. | | |Number of Addenda: 0 | | |Note Initiated On: 06/10/2017 10:47 AM | | |Scope Withdrawal Time: 0 hours 10 minutes 32 seconds | | |Total Procedure Duration: 0 hours 19 minutes 35 seconds | | |Scope In: 10:53:03 AM | | |Scope Out: 11:12:38 AM | | | [facility], [address], [place], [place] | | | [address] | | + + -+ + +---------+ + + | Performing | Address | City/State/Zipcode | Phone Number | | Organization | | | | + +---------+ + + | [facility] | | | | + +---------+ + + Surgical Pathology Exam (06/10/2017 12:00 AM PDT) + + | Specimen | + + | | + + + + + | Narrative | Performed At | + + + | SPECIMEN(S): A SIGMOID COLON POLYP SPECIMEN SOURCE: A. SIGMOID | [place] [facility] | | COLON POLYP CLINICAL HISTORY: Z12.11 (encounter for screening for | INCYTE | | malignant neoplasm of colon); MICROSCOPIC DESCRIPTION: Histologic | | | sections of all submitted blocks are examined by light microscopy. | | | These findings, together with the gross examination, support the | | | pathologic diagnosis. FINAL PATHOLOGIC DIAGNOSIS: Sigmoid colon | | | polyp, biopsy: - Tubular adenoma (two fragments). JVR:val:C2NR | | | GROSS DESCRIPTION: The specimen, received in formalin, labeled | | | "Mani Garcia, sigmoid colon polyp," on the requisition, consists of | | | two pink-bowen tissue fragments measuring from 0.3 to 0.35 cm. | | | Submitted all in (A1). ka:JVR:glc PERFORMING LABORATORY: Tissue | | | processing and slide preparation were performed by [facility], | | | [address] [facility], [address], [place] [address] (Budget Controller: | | | Je Michael M.D. CLIA#: [id number]). Professional interpretation | | | was performed by [facility], [facility] | | | [place], [address] [place] [address] (Medical | | | Director: Je Michael M.D.; CLIA#: [id number]). Diagnostician: | | | Je Michael MD Pathologist Electronically Signed 06/13/2017 | | + + + + +---------+ + + | Performing | Address | City/State/[facility] Centercode | Phone Number | | Organization [...] ONCE PRN, Wheezing, | | | Starting Tue06/10/17 at 1132, | | | For 1 dose, Notify [...] ONCE PRN, Wheezing, | | | Starting Tue06/10/17 at 0937, | | | For 1 dose, Pre-op [...] glucose < 50, | | | Starting 06/10/17 at 0937, | | | Repeat in 15 min [...] < 50, Starting Fri | | | 06/10/17 at 1132, Give over 2 min. | | | [...] ringers (LR) infusion | New Bag | 06/10/20 | | 100 | | | at 100 mL/hr, Intravenous, | | 17 10:02 | | mL/hr | | | CONTINUOUS, Starting Tue06/10/17 | | AM PDT | | | | | at 1000, Pre-op | | | | | | + +---------+ +---+-------+---+ + +---+ | | | + +---+ | ondansetron (ZOFRAN ODT) | | | disintegrating tablet 4 mg 4 mg, | | | Oral, EVERY 6 HOURS PRN, Nausea, | | | Vomiting, Starting Tue06/10/17 | | | at 1132, First line agent, | | | Post-op/Phase II | | + +---+ | | | + +---+ | ondansetron (ZOFRAN) injection | | | 4 mg 4 mg, Intravenous, EVERY 6 | | | HOURS PRN, Nausea, Vomiting, | | | Starting Tue06/10/17 at 1132, | | | First line agent. Use PO option | | | unless NPO status or unable to | | | tolerate., Post-op/Phase II | | + +---+ | | | + +---+ | scopolamine (TRANSDERM-SCOP) 1 | | | mg/3 days 1 patch 1 patch, | | | Transdermal, ONCE PRN, For | | | history of PONV. Need not | | | apply if h/o PONV is remote and | | | has likely been resolved with | | | modern anesthetics or | | | ondansetron. Also, please do | | | not administer to patients >65 | | | year of age without phone consult | | | with anesthesiologist., Starting | | | Tue06/10/17 at 0937, For 1 dose, | | | Apply to mastoid process, Pre-op | | + +---+ | | | + +---+ documented in this encounter
--- OUTSIDE RECORDS SUMMARY | ~2020-06-06 | XMS | Encounter Summary ---
Demographics + + + | Address | [address] | | | [place] [address] | + + + | Home Phone [...] + + + | Author | [facility] | + + + | Organization | [facility] | + + + | Address | Unknown | + + + | Phone | Unavailable | + + + Support + + +---------+ + | Name | Relationship | Address | Phone | + + +---------+ + | Servando Boyer | ECON | Unknown | | + + +---------+ + Care Team Providers + +------+ + | Care Flue Blower Name | Role | Phone | + +------+ + | Aryan Grossman MD | PCP | | + +------+ + Encounter Details +--------+ + + + + | Date | Type | Department | Care Team | Description | +--------+ + + + + | 05/05/ | Documentati | Urology at [facility] | Simran Osman, | | | 2017 | on | [address] | [facility] [address] [facility] | | | | | Mailcode: CH10U | [address] | | | | | [place] | [place], [place] | | | | | and Healing, | [address] | | | | | | [phone] | | | | | Floor [place], [place] | | | | | | [address] | | | | | | [phone] | | | +--------+ + + + [...]
--- OUTSIDE RECORDS SUMMARY | ~2020-06-06 | XMS | Encounter Summary ---
Demographics + + + | Address | NEED ADDRESS | | | [place] [address] | + + + | Home Phone [...] Hector Garcia | ECON | [place] [address] | | + + + + + Care Team Providers + +------+ + | Care Leather Cartridge Belt Maker Name | Role | Phone | + +------+ + | Aryan Grossman MD | PCP | | + +------+ + Reason for Visit + +--------+ + | Reason | Onset | Comments | | | Date | | + +--------+ + | Medication Refill | 12/20/ | | | | 2013 | | + +--------+ + Encounter Details +--------+ + + + + | Date | Type | Department | Care Team | Description | +--------+ + + + + | 12/20/ | Telephone | [facility] | Aryan Grossman, | Medication Refill | | 2013 | | MEDICINE [facility] REA | [address] | | | | | [place], | [address] [place], | | | | | [place] [address] | [place] [address] | | | | | [phone] | [phone] | | | | | | | [...] this encounter Miscellaneous Notes Telephone Encounter - Shayy Acosta RN - 12/20/2013 1:44 PM PDTPatient called wanting the results of his HIV test. Informed patient that the specimen was non-reactive.Electronic ally signed by Shayy Acosta RN at 12/20/2013 1:45 PM PDTdocumented in this encounter Plan of Treatment Not on filedocumented as of this encounter Visit Diagnoses Not on filedocumented in this encounter"
--- OUTSIDE RECORDS SUMMARY | ~2020-06-06 | XMS | Encounter Summary ---
Demographics + + + | Address | NEED ADDRESS | | | [place] [address] | + + + | Home Phone [...] Hector Garcia | ECON | [place] [address] | | + + + + + Care Team Providers + +------+ + | Care Drainage Engineer Name | Role | Phone | + +------+ + | Loi Frausto PA-C | PCP | | + +------+ + Encounter Details +--------+ + + + + | Date | Type | Department | Care Team | Description | +--------+ + + + + | 01/31/ | Episode | [facility] [place] | Lani-April, | | | 2017 | Changes | ORTHOPEDIC SURGERY | Mireya Granados MA | | | | | [address] [place] | | | | | | [place] | | | | | | [address] | | | | | | [phone] | | | +--------+ + + + [...]
--- OUTSIDE RECORDS SUMMARY | ~2020-06-06 | XMS | Encounter Summary ---
Demographics + + + | Address | NEED ADDRESS | | | [place] [address] | + + + | Home Phone [...] Hector Garcia | ECON | [place] [address] | | + + + + + Care Team Providers + +------+ + | Care Senior Project Engineer Name | Role | Phone | [...] Description | +--------+--------+ + + + | 04/16/ | Refill | [facility] [place] [facility] | Aryan Grossman, | Medication Refill | | 2015 | | MEDICINE [address] | [address] | | | | | [address] [place], | [address] [place], | | | | | [place] [address] | [place] [address] | | | | | [phone] | [phone] | | | | | | | [...]
--- OUTSIDE RECORDS SUMMARY | ~2020-06-06 | XMS | Encounter Summary ---
Demographics + + + | Address | NEED ADDRESS | | | [place] [address] | + + + | Home Phone [...] Author + + + | Author | [facility] | | | and [place] | + + + | Organization | [facility] | | [...] Hector Garcia | ECON | [place] [address] | | + + + + + Care Team Providers + +------+ + | Care Director Of Student Financial Services Name | Role | Phone | + +------+ + | Aryan Grossman MD | PCP | | + +------+ + Reason for Visit + +--------+ + | Reason | Onset | Comments | | | Date | | + +--------+ + | Referral | 02/26/ | | | | 2015 | | + +--------+ + Encounter Details +--------+ + + + + | Date | Type | Department | Care Team | Description | +--------+ + + + + | 02/26/ | Telephone | [facility] | Aryan Grossman, | Referral | | 2015 | | MEDICINE [address] [place] [address] | [address] | | | | | [address] [place], | [address] [place], | | | | | [place] [address] | [place] [address] | | | | | [phone] | [phone] | | | | | | | [...] - Kyleigh De Santiago RN - 02/27/2016 2:58 PM PDTCalled patient and no tified that because of his insurance, the manager supply chain in [place] is the closest that wi ll take his insurance. Says he will call them and talk to them about the appointment in [facility]. elephone [facility] - Kyleigh De Santiago RN - 02/27/2016 2:21 PM PDTPatient referred to Production Sanitizer dilshad [facility] and wonders why he can't get in to see someone closer. Says he really n eeds to be seen to determine what's going on. documented in this encounter Plan of Treatment Not on filedocumented as of this encounter Visit Diagnoses Not on filedocumented in this encounter"
--- OUTSIDE RECORDS SUMMARY | ~2020-06-06 | XMS | Encounter Summary ---
Demographics + + + | Address | NEED ADDRESS | | | [place] [address] | + + + | Home Phone [...] Hector Garcia | ECON | [place] [address] | | + + + + + Care Team Providers + +------+ + | Care Hazardous Waste Management Specialist Name | Role | Phone | + +------+ + | Loi Frausto PA-C | PCP | | + +------+ + Reason for Visit + +--------+ + | Reason | Onset | Comments | | | Date | | + +--------+ + | Colonoscopy | 06/07/ | | | | 2016 | | + +--------+ + Encounter Details +--------+ + + + + | Date | Type | Department | Care Team | Description | +--------+ + + + + | 06/07/ | Telephone | [facility] | Saul Valentine MD | Colonoscopy | | 2017 | | GASTROENTEROLOGY | [address] [facility] | | | | | [address] [facility] | [place], [place] | | | | | [address] [place], [place] | [address] | | | | | [address] | [phone] | | | | | [phone] | | | +--------+ + + + [...] encounter Miscellaneous Notes Telephone Encounter - Sarah Hugo RN - 06/07/2017 2:12 PM PDTLVM for patient that bow el prep ordered on 05/16 at [email or web address] and Rx says to substitute with [employer] if Suprep not co chris and we do not do PA's for Suprep, he will have to pay out of pocket if its not covered ; [employer] called and this was confirmed. Electronically signed by Sarah Hugo RN at 08/2017 2:19 PM PDTTelephone Encounter - Mercy Dutton - 06/07/2017 1:53 PM PDTPatient c alled to speak with Dr Valentine RN, Sarah, in regards to his prep for his upcoming procedure w quinn Valentine on 06/10/17. Per patient "he called his pharmacy and they said something about t he prescription needing to be approved so it was sent back to get it done". Please advise, p atient can be reached at [phone]. documented in this encounter Plan of Treatment Not on filedocumented as of this encounter Visit Diagnoses Not on filedocumented in this encounter
--- OUTSIDE RECORDS SUMMARY | ~2020-06-06 | XMS | Encounter Summary ---
Demographics + + + | Address | [address] | | | [facility] [place] [address] | + + + | Home Phone [...] Author + + + | Author | [facility] [employer] [facility] | + + + | Organization | [facility] [...] Team Providers + +------+ + | Care Respiratory Care Technician Name | Role | Phone | + +------+ + | Aryan Grossman MD | PCP | | + +------+ + Encounter Details +--------+ + + + + | Date | Type | Department | Care Team | Description | +--------+ + + + + | 06/27/ | Oxidation Engineer | Urology at [facility] | Simran Osman, | Prostate cancer | | 2017 | | [address] | ACNP [address] | ([facility]) (Primary Dx) | | | | Mailcode: CH10U | [address] | | | | | [facility] | [place], [place] | | | | | and Healing, | [address] | | | | | Building | [phone] | | | | | Floor [place], [place] | | | | | | [address] | | | | | | [phone] | | | +--------+ + + + [...] Telephone Encounter - Rashida Pina MA - 07/04/2017 10:59 AM PDTRe-faxed external order s to [id number] signed by Rashida Pina MA at 07/04/2017 11:09 AM PDTdocu mented in this encounter Plan of Treatment Not on filedocumented as of this encounter Visit Diagnoses + + | Diagnosis | + + | Prostate cancer (HCC) - Primary Malignant neoplasm of prostate | + + documented in this encounter"
--- OUTSIDE RECORDS SUMMARY | ~2020-06-06 | XMS | Encounter Summary ---
Demographics + + + | Address | NEED ADDRESS | | | [place] [address] | + + + | Home Phone | | + + + | Preferred Language | Unknown | + + + | Marital Status | Single | + + + | Synagogue Affiliation | Unknown | + + + [...] Hector Garcia | ECON | [place] [address] | | + + + + + Care Team Providers + +------+ + | Care Pizza Hut Assistant Name | Role | Phone | + +------+ + | Loi Frausto PA-C | PCP | | + +------+ + Reason for Visit + +--------+ + | Reason | Onset | Comments | | | Date | | + +--------+ + | Results, Imaging | 11/16/ | | | | 2019 | | + +--------+ + Encounter Details +--------+ + + + + | Date | Type | Department | Care Team | Description | +--------+ + + + + | 11/16/ | Telephone | [facility] | Zeeshan Hawkins, | Results, Imaging | | 2019 | | [address] | MD [address] | | | | | [place] | [place] | | | | | [address] | [address] | | | | | [phone] | | | +--------+ + + + [...] Telephone Encounter - Zeeshan Hawkins MD - 11/16/2019 11:08 AM PSTI spoke with Mauricio and we reviewed his bone scan report by telephone. Mauricio reports that about 2 or 3 weeks ago he fell on his right side and bruised his ribs. He states that he wonders whether or not he may have cracked a rib. This might explain his abnormal bone scan findings, and I told him that we should continue Lupron, and continuing to monitor his PSA and alkaline phosphatase. I told him that if he s hould experience any recurrence of rib pain, that he should notify me. documented in this encounter Plan of Treatment Not on filedocumented as of this encounter Visit Diagnoses Not on filedocumented in this encounter"
--- OUTSIDE RECORDS SUMMARY | ~2020-06-06 | XMS | Encounter Summary ---
Demographics + + + | Address | NEED ADDRESS | | | [place] [address] | + + + | Home Phone [...] + + + | Author | [facility] | | | and [place] | + + + | Organization | [facility] | | | and [...] + | Hector Garcia | ECON | [place] [address] | | + + + + + Care Team Providers + +------+ + | Care Displayer Name | Role | Phone | + [...] + + | Closed | Specialty | Psychology | Diagnoses | [facility], | | | | Services | | Stress | Aryan Velásquez MD | | | | Required | | reaction | [address] | | | | | | Depression | [address] | | | | | | | [place] | | | | | | | [place] | | | | | | | [address] | | | | | | | Phone: | | | | | | | [phone] | | | | | | | Fax: | | | | | | | [phone] | | +--------+ + + + + + Evaluate & Treat (Urgent) +--------+ + + + + + | Status | Reason | Specialty | Diagnoses / | Referred By | Referred To | | | | | Procedures | Contact | Contact | +--------+ + + + + + | Closed | Specialty | Urology | Diagnoses | [facility], | [place], | | | Services | | Elevated | Aryan Velásquez MD | Zeeshan Powell MD | | | Required | | PSA | [address] | [address] | | | | | | [address] | [place] | | | | | | [place] | [place], [place] | | | | | | [place], [place] | [address] Phone: | | | | | | [address] | [phone] | | | | | | Phone: | Fax: | | | | | | [phone] | [phone] | | | | | | Fax: | | | | | | | [phone] | | +--------+ + + + + + Reason for Visit + + + | Reason | Comments | + + + | Follow-up | 4 week | + + + Encounter Details +--------+---------+ + + + | Date | Type | Department | Care Team | Description | +--------+---------+ + + + | 12/12/ | Office | [facility] | Aryan Grossman, | HTN (hypertension) | | 2014 | Visit | MEDIC[place] | [address] | (Primary Dx); | | | | [address] | [address] [place], | Elevated PSA; | | | | [place], [place] | [place] [address] | Nicotine addiction; | | | | [address] | [phone] | Alopecia; Stress | | | | [phone] | | reaction; | | | | | | Depression; | | | | | | Screening | +--------+---------+ + + + Social History [...] + + + | Blood Pressure | 150/108 | 12/12/2013 3:18 PM | | | | | PDT | | + + + + + | Pulse | 111 | 12/12/2013 3:18 PM | | | | | PDT | | + + + + + | Temperature | 36.9 C (98.5 F) | 12/12/2013 3:18 PM | | | | | PDT | | + + + + + | Respiratory Rate | 16 | 12/12/2013 3:18 PM | | | | | PDT | | + + + + + | Oxygen Saturation | 96% | 12/12/2013 3:18 PM | | | | | PDT | | + + + + + | Inhaled Oxygen | - | - | | | Concentration | | | | + + + + + | Weight | 88 kg (194 lb) | 12/12/2013 3:18 PM | | | | | PDT | | + + + + + | Height | - | - | | + + + + + | Body Mass Index | 28.65 | 12/10/2013 10:24 AM | | | | | PDT | | + + + + + documented in this encounter Progress Aryan Gates MD - 12/12/2013 3:49 PM PDTFormatting of this note might be different f rom the original. Subjective: Patient ID: Mani Garcia is a 48 y.o. male. HPI HTN, He was on some kind of blood pressure medication in the past that he stopped taking i n the past. He does not remember what it was. He thinks it might have been lisinopril. Right elbow, aches a lot, Right shoulder also aches a lot. He is making a work comp claim for this with Dr Green. Depressed, Stress, with new job and older sister recently from cancer. He does feel stressed. He does not feel depressed. He sleeps good. He is a little mccarthy. He uses meth off and on, A couple times a month, He drinks a lot too. He has been to a [facility] program once in the past in [facility]. His son has been clean out of rehab the last month or two. Recent DUI, Lost his job. Nicotine Addiction. PMH: HTN Hyperlipidemia Alcoholism PSH: Right thumb 2008 Lumbar Diskectomy 1992 Fhx: Mom 64 Ovarian Cancer Dad 50 of [place] complications Sister 54, recurrent lymphoma,. First diagnosed with cancer in ' Shx: Born in [facility], 16 year old son Lives in [place] since 2012, Grew up in [place]. 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 HTN (hypertension) 2. Elevated PSA 3. Nicotine addiction 4. Alopecia 5. Stress reaction 6. Depression Plan: Lisinopril trial, lexapro trial, Refer to Dr Hawkins. He will try to stop using meth. Ref er to counseling. RTC 1 month. documented in this encounter Plan of Treatment + + +--------+ + + | Name | Type | Priori | Associated Diagnoses | Order Schedule | | | | ty | | | + + +--------+ + + | Ambulatory referral | Outpatient | Routin | Elevated PSA | 1 Occurrences | | to Urology | Referral | e | | starting 12/12/2013 | | | | | | until 12/12/2014 | + + +--------+ + + | Psychology, External | Outpatient | Routin | Stress reaction | 1 Occurrences | | - AMB Referral | Referral | e | Depression | starting 12/12/2013 | | | | | | until 12/12/2014 | + + +--------+ + + documented as of this encounter Results HIV 1 AND 2 [...] [place] | | | | | | [address] | | | | + + + [...] [address] | [place] [address] | [phone] | + + + + + documented in this encounter Visit Diagnoses + + | Diagnosis | + + | HTN (hypertension) - Primary Unspecified essential hypertension | + + | Elevated PSA Elevated prostate specific antigen (PSA) | + + | Nicotine addiction Tobacco use disorder | + + | Alopecia Alopecia, unspecified | + + | Stress reaction Other acute reactions to stress | + + | Depression Depressive disorder, not elsewhere classified | + + | Screening Screening for unspecified condition | + + documented in this encounter"
--- OUTSIDE RECORDS SUMMARY | ~2020-06-06 | XMS | Encounter Summary ---
Demographics + + + | Address | [address] | | | [place] [facility] [place] [address] | + + + | Home Phone [...] Author + + + | Author | [facility] [employer] [facility] | + + + | Organization | [facility] | + + + | Address | Unknown | + + + | Phone | Unavailable | + + + Support + + +---------+ + | Name | Relationship | Address | Phone | + + +---------+ + | Servando Boyer | ECON | Unknown | | + + +---------+ + Care Team Providers + +------+ + | Care Seed Analysis Laboratory Assistant Name | Role | Phone | + +------+ + | Aryan Grossman MD | PCP | | + +------+ + Reason for Visit + +--------+ + | Reason | Onset | Comments | | | Date | | + +--------+ + | Pathology Report | 08/12/ | | | | 2013 | | + +--------+ + Encounter Details +--------+ + + + + | Date | Type | Department | Care Team | Description | +--------+ + + + + | 08/12/ | Telephone | [facility] at [facility] | Columba Kohli, | Pathology Report | | 2013 | | [address] | [address] | | | | | [facility] | [place] [address] | | | | | and [place], | [phone] | | | | | [facility] | | | | | | Floor [place], [place] | | | | | | [address] | | | | | | [phone] | | | +--------+ + + + [...] Telephone Encounter - Columba Kohli MD - 08/12/2014 5:21 PM PSTI called Mr. Garcia regard ing his his recovery from surgery. He is feeling well with minimal lower urinary tract symp toms. We did discuss his pathology report. This demonstrated: SURGICAL PATHOLOGY (no units) Date Value Range Status 08/01/2014 Final Value: SOURCE OF SPECIMEN:A Right pelvic lymph node SOURCE OF SPECIMEN:B Left pelvic lymph node SOURCE OF SPECIMEN:C Prostate Final Pathologic Diagnosis: A: Right pelvic lymph nodes, dissection: - Four lymph nodes, negative for malignancy (0/4) B: Left pelvic lymph nodes, dissection: - Six lymph nodes, negative for malignancy (0/6) C: Prostate, prostatectomy: - Prostatic adenocarcinoma, [place] grade 4 + 3 = 7, involving [...] Grade: 4 Secondary Pattern Grade: 3 Total [place] Score: 7 Tumor Quantitation: Percent of prostate [...] specimens fresh in containers labeled with the patient's name (initials DF) and: A: Right pelvic lymph node: Received are multiple yellow, soft tissue measuring 3.5 x 3.4 x 2.5 cm in aggregate. Four possible lymph nodes are identified. The lymph nodes range from 0.4 cm to 3.5 cm. All possible lymph nodes are submitted. Machine Erector sections are submitted. B: Left pelvic lymph node: Received are 2 oriented, soft, yellow tissues, measuring 4.7 x 3.7 x 1.8 cm in aggregate. Six possible lymph nodes are identified. The lymph nodes range in size from 0.3 cm to 5.6 cm. All possible lymph nodes are submitted. Machine Erector sections are submitted. C: Prostate: Weight: 44.7 grams Size: 4 [...] face, then radially sectioned and entirely submitted. Vas margins are entirely submitted. Machine Erector sections of the remaining tissue are submitted. The specimen is sampled [...] face, longitudinal section seminal vesicle into prostate C5-6, left base C7-8, left mid C9-10, left apex C11-12, right base C13-14, right mid C15-16, right apex YW/yaya My electronic signature indicates that I have personally reviewed all diagnostic slides, the gross and/or microscopic portion of this report and formulated the final diagnosis. Rendering Diagnostician: Donavan Velazquez M.D. Pathologist Electronically Signed 08/09/2014 11:40AM He is a GG 4+3, [id number], SMSx, NAYELY positive, microscopic positive margin. At this point, our plan would be for immediate radiation versus psa surveillance. Mr. Garcia understands and agrees with this plan. documented in this encounter Plan of Treatment Not on filedocumented as of this encounter Visit Diagnoses Not on filedocumented in this encounter"
--- OUTSIDE RECORDS SUMMARY | ~2020-06-06 | XMS | Encounter Summary ---
Demographics + + + | Address | NEED ADDRESS | | | [place] [address] | + + + | Home Phone [...] Hector Garcia | ECON | [place] [address] | | + + + + + Care Team Providers + +------+ + | Care Gore Seamer Name | Role | Phone | + +------+ + | Loi Frausto PA-C | PCP | | + +------+ + Reason for Visit + +--------+ + | Reason | Onset | Comments | | | Date | | + +--------+ + | Lab Results | 03/22/ | | | | 2017 | | + +--------+ + Encounter Details +--------+ + + + + | Date | Type | Department | Care Team | Description | +--------+ + + + + | 03/22/ | Telephone | [facility] | Antony Grider, | Lab Results | | 2018 | | PHYSIATRY [address] | MD [address] | | | | | [address] | [place] | | | | | [place] | [address] | | | | | [address] | | | | | | [phone] | | | +--------+ + + + [...] Telephone Encounter - Yamila Jimenez RN - 03/22/2018 4:46 PM PDTLeft voicemail notify tian Garcia all of his lab results have come back normal, and if he has any question s he can call our office. 4: 47 PM PDTTelephone Encounter - Yamila Jimenez RN - 03/22/2018 4:45 PM PDT----- Message from Antony Grider MD sent at 03/22/2018 15:03 PDT ----- Abigail, Please let Mani Plasenciay know that I have reviewed his laboratory results. His lab resul ts have returned as unremarkable. Thank you, Antony Grider MD (Jr.) ----- Message ----- From: Antony Grider MD Sent: 03/22/2018 14:29 To: Antony Grider MD ----- Message ----- From: Lab, Background User Sent: 03/22/2018 13:17 To: Antony Grider MD documented in this encounter Plan of Treatment Not on filedocumented as of this encounter Visit Diagnoses Not on filedocumented in this encounter"
--- OUTSIDE RECORDS SUMMARY | ~2020-06-06 | XMS | Encounter Summary ---
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 | [place] | [phone] | | | | | neoplasm of | [address] | Fax: | | | | | bone (HCC) | Phone: | [phone] | | | | | Procedures | [phone] | | | | | | MA DENOSUMAB | Fax: | | | | | | INJECTION, | [phone] | | | | | | 1 MG | | | +--------+--------+ + + + + Encounter Details +--------+ + + + + | Date | Type | Department | Care Team | Description | +--------+ + + + + | 01/18/ | Hospital | [facility] | Maged Albright Andre, | No Show | | 2018 | Encounter | MED CTR CHEMO | MD [address] | | | | | INFUSION [address] [place], | | | | | [place], | [place] [address] | | | | | [place] [address] | [phone] | | | | | [phone] | | | +--------+ + + + [...]
--- OUTSIDE RECORDS SUMMARY | ~2020-06-06 | XMS | Encounter Summary ---
Demographics + + + | Address | NEED ADDRESS | | | [place] [address] | + + + | Home Phone [...] Hector Garcia | ECON | [place] [address] | | + + + + + Care Team Providers + +------+ + | Care Operations Support Representative Name | Role | Phone | + +------+ + | Aryan Grossman MD | PCP | | + +------+ + Reason for Visit + +--------+ + | Reason | Onset | Comments | | | Date | | + +--------+ + | Appointment | 06/03/ | | | | 2013 | | + +--------+ + Encounter Details +--------+ + + + + | Date | Type | Department | Care Team | Description | +--------+ + + + + | 06/03/ | Telephone | [facility] | Aryan Grossman, | Appointment | | 2013 | | MEDICINE [address] [place] [address] | [address] | | | | | [address] [place], | [address] [place], | | | | | [place] [address] | [place] [address] | | | | | [phone] | [phone] | | | | | | | [...] this encounter Miscellaneous Notes Telephone Encounter - Dara Bell - 06/03/2014 9:07 AM PDTPatient called/scheduled a ppointment on 06-10-2014 at 1430. 9:0 7 AM PDTTelephone Encounter - Su Chen CMA - 06/03/2014 8:35 AM PDTLM for patient to call us back. Dr. Grossman would like patient to return to clinic in 2 weeks to discuss l ab results. documen luis armando in this encounter Plan of Treatment Not on filedocumented as of this encounter Visit Diagnoses Not on filedocumented in this encounter"
--- OUTSIDE RECORDS SUMMARY | ~2020-06-06 | XMS | Encounter Summary ---
Demographics + + + | Address | NEED ADDRESS | | | [place] [address] | + + + | Home Phone [...] Hector Garcia | ECON | [place] [address] | | + + + + + Care Team Providers + +------+ + | Care Slag Wheeler Name | Role | Phone | + [...] | +--------+ + + + + | 05/25/ | Clinical | [facility] | Zeeshan Hawkins, | Prostate cancer | | 2018 | Support | [address] | [address] | ([facility]) (Primary Dx) | | | | [place] | [place] | | | | | [address] | [id number] | | | | | [phone] | | | +--------+ + + + [...] documented as of this encounter Progress Notes Ileana Castillo RN - 05/25/2018 4:00 PM PDT Administrations This Visit leuprolide (LUPRON DEPOT-3 MONTH) injection 22.5 mg Admin Date 05/25/2018 Action Given Dose 22.5 mg Route Intramuscular Administered By Ileana Castillo RN documented in this encounter Plan of Treatment [...] | leuprolide (LUPRON DEPOT-3 | Given | 05/25/20 | 22.5 mg | | Glut-Rig | | MONTH) injection 22.5 mg 22.5 | | 18 3:50 | | | ht | | mg, Intramuscular, ONCE, Erma | | PM PDT | | | | | 05/25/18 at 1615, For 1 dose, | | | | | | | Chemotherapy: Use appropriate | | | | | | | handling precautions., | | | | | | + +--------+ +---------+------+ + +---+---+ | | | +---+---+ documented in this encounter"
--- OUTSIDE RECORDS SUMMARY | ~2020-06-06 | XMS | Encounter Summary ---
Demographics + + + | Address | NEED ADDRESS | | | [place] [address] | + + + | Home Phone [...] Hector Garcia | ECON | [place] [address] | | + + + + + Care Team Providers + +------+ + | Care Normalizer Name | Role | Phone | + +------+ + | Aryan Grossman MD | PCP | | + +------+ + Reason for Visit + +--------+ + | Reason | Onset | Comments | | | Date | | + +--------+ + | Medication Refill | 09/23/ | | | | 2014 | | + +--------+ + Encounter Details +--------+--------+ + + + | Date | Type | Department | Care Team | Description | +--------+--------+ + + + | 09/23/ | Refill | [facility] [place] [facility] | Aryan Grossman, | Medication Refill | | 2014 | | MEDICINE [address] | MD [address] | | | | | [place], | [place] [address] [place], | | | | | [place] [address] | [place] [address] | | | | | [phone] | [phone] | | | | | | | [...] this encounter Miscellaneous Notes Telephone Encounter - Alicia Daly - 09/23/2015 4:04 PM PSTPrescription has been faxe d to [facility] pharmacy elephone Encounter - Natty eH RN - 09/23/2015 1:45 PM PSTRX sent to front office to be faxed to [facility] Electronically signed by Natty He RN at 2014 1:45 PM PSTTelephone Encounter - Leonard Reece - 09/23/2015 10:33 AM PSTMed ication zolpidem (AMBIEN) 10 mg tablet Quantity 30 Amount of medication remaining Out Last refill date 08-25-2015 Pharmacy [facility] Last appointment 08-25-15 Next appointment no future appointments scheduled Alo Singleton, documented in th is encounter Plan of Treatment Not on filedocumented as of this encounter Visit Diagnoses + + | Diagnosis | + + | Insomnia, unspecified insomnia - Primary | + + documented in this encounter"
--- OUTSIDE RECORDS SUMMARY | ~2020-06-06 | XMS | Encounter Summary ---
Demographics + + + | Address | NEED ADDRESS | | | [place] [address] | + + + | Home Phone [...] + | Hector Garcia | ECON | [place] [address] | | + + + + + Care Team Providers + +------+ + | Care Sign Language Teacher Name | Role | Phone | + [...] | Antony Powell MD | [address] | | | | | Left arm | [address] | [place], | | | | | weakness | [address] | [place] | | | | | Numbness and | [place], | [address] | | | | | tingling in | [place] [address] | Phone: | | | | | left hand | Phone: | [phone] | | | | | Atrophy of | [phone] | Fax: | | | | | muscle of | Fax: | [phone] | | | | | left upper | [phone] | | | | | | arm [...] | Comments | + + + | Procedure | LUE NCS/EMG | + + + Evaluate & Treat [...] Medicine and | Numbness of | Antony Powell MD | Jaden Powell MD [address] | | | Required | Rehabilitatio | left hand | [address] | | | | n | Procedures | [address] | [place], | | | | | DOS 11/02/17 | [place], | [place] [address] | | | | | | [place] [address] | Phone: | | | | | | Phone: | [phone] | | | | | | [phone] | Fax: | | | | | | Fax: | [phone] | | | | | | [phone] | | +--------+ + + + + + Encounter Details +--------+ + + + + | Date | Type | Department | Care Team | Description | +--------+ + + + + | 11/09/ | Procedure | [facility] [place] | Antony Grider, | Carpal tunnel | | 2017 | visit | PHYSIATRY [address] | MD [address] | syndrome of left | | | | [address] | [place] | wrist (Primary Dx); | | | | [place] | [address] | Peripheral | | | | [address] | | polyneuropathy; | | | | [phone] | | Cervicalgia; Left | | | | | | arm weakness; | | | | | | Numbness and | | | | | | tingling in left | | | | | | hand; Atrophy of | | | | | | muscle of left upper | | | | | | arm; Other | | | | | | osteoarthritis of | | | | | | spine, cervical | | | | | | region; History of | | | | | | alcoholism (HCC) | +--------+ + + + + Social [...] this encounter Last Filed Vital Signs + +---------+ + + | Vital Sign | Reading | Time Taken | Comments | + +---------+ + + | Blood Pressure | 140/91 | 11/09/2017 4:06 PM | | | | | PST | | + +---------+ + + | Pulse | 107 | 11/09/2017 4:06 PM | | | | | PST | | + +---------+ + + | Temperature | - | - | | + +---------+ + + | Respiratory Rate | - | - | | + +---------+ + + | Oxygen Saturation | - | - | | + +---------+ + + | Inhaled Oxygen | - | - | | | Concentration | | | | + +---------+ + + | Weight | - | - | | + +---------+ + + | Height | - | - | | + +---------+ + + | Body Mass Index | - | - | | + +---------+ + + documented in this encounter Patient Instructions Patient Instructions Antony Grider MD - 11/09/2017 4:00 PM PSTA MRI has been requested. Please complete the requested imaging. Within one week, you should receive a call to sche dule your MRI. If you have not heard from anyone within one week, please call the clinic. The results of your MRI will be reviewed at your next appointment. If your MRI demonstrates any emergent results, the clinic will contact you. Laboratory tests have been requested. Please go to the lab to complete your laboratory keyona ting. The results of your laboratory testing will be reviewed at your next appointment. If your labratory results demonstrate any emergent results the clinic will contact you. It is recommended that you wear left carpal tunnel wrist splint at night, only at night, ev bozena night, never during the day. Move forward with consult with Dr. Hurst to discuss left carpal tunnel release. Return to the clinic in 2 months to review MRI and lab results. documented in this encounter Progress Notes Antony Grider MD - 11/09/2017 4:00 PM PSTFormatting of this note might be different fro m the original. [facility] Physical Medicine & Rehabilitation [address] [place] [address], [address] [place] [address] Test Date: 11/09/2017 Patient Name: Mani Garcia : 1965 Physician: Antony Grider MD (Jr.) MR #: [id number] Sex: Male Referring Physician: Remberto Hurst MD HISTORY: Mani Garcia presents to the clinic today for previously scheduled left upper extremity nerve conduction study and EMG. He reports numbness in the left first, second, third, and f ourth fingers. He reports that the numbness spares the left fifth finger. He reports weakn ess in the left upper extremity which he describes as loss of supervisor joiners strength. He reports belkis t his numbness is constant in his left hand. He reports that numbness may be increased when sleep at night and may be increased with activities using the left hand. He reports numbne ss progressively worse over the last half year. He reports that left hand numbness may have been present for more than one year. He reports numbness in both feet. He reports that bi lateral foot numbness has been present for 2+ years. He reports that the numbness is strong est in the toes of both feet. He reports that his foot numbness is constant in timing. He denies anything that makes his foot numbness better or worse. He had evaluation with neurop athy in approximately 2014 for neuropathy. He denies history of diabetes or thyroid disease . He reports history of heavy alcohol consumption. He reports that he stopped drinking alc ohol 06/2017. PHYSICAL EXAM: Generally he is in no acute distress. He protrudes tongue frequently. He follows and under stands directions. He has intact memory. He has decreased sensation in left L5 dermatome a nd toes of both feet with monofilament. He has decreased sensation in the left first, secon d, third, and fourth fingers with monofilament. There is mild atrophy of most major muscle s in the left upper extremity compared to the right (biceps, triceps, and forearm). There w as no fasciculation noted in either upper extremity. Spurling s test to the left was posi tive. Spurling s test to the right was negative. Tinel s test was positive over the me curtis nerve at the left wrist and negative ot the right. Phalen s test was negative bilate rally (his hand was already feeling numb). Motor exam demonstrates 4/5 finger abduction darshana aterally. There is 4/5 hand supervisor joiners bilaterally. The weakness is more pronounced on the left compared to the right. There is normal 5/5 biceps, triceps, and wrist dorsiflexion strength in both upper extremities. Reflexes are asymmetric with 1+ over left biceps, and brachiora dialis compared to 2+ on the right. Triceps reflexes were normal and symmetric bilaterally 2+. Nerve Conduction Studies Anti Sensory Summary Table Site NR Peak (ms) Norm Peak (ms) O-P Amp (V) Norm O-P Amp Site1 Site2 Delta-0 (ms) Dist (cm) Martin (m/s) Norm Martin (m/s) Left Median Anti Sensory (2nd Digit) 22.3C Each trace is multiple stimuli averaged Wrist 5.5 <3.6 3.2 >10 Wrist 2nd Digit 4.4 14.0 32 >39 Left Radial Anti Sensory (Base 1st Digit) 22.7C Wrist 2.8 <2.7 12.2 Wrist Base 1st Digit 2.0 10.0 50 Left Ulnar Anti Sensory (5th Digit) 22.9C Wrist 3.5 <3.7 8.5 >15.0 Wrist 5th Digit 2.8 14.0 50 >38 B Elbow 8.1 6.4 B Elbow Wrist 4.3 22.5 52 >47 A Elbow 10.6 5.8 A Elbow B Elbow 2.1 10.0 48 Motor Summary Table Site NR Onset (ms) Norm Onset (ms) O-P Amp (mV) Norm O-P Amp Site1 Site2 Delta-0 (ms) Dist (cm) Martin (m/s) Norm Martin (m/s) Left Median Motor (Abd Poll Brev) 23.1C Wrist 7.0 <4.2 5.2 >5 Elbow Wrist 5.2 25.5 49 >50 Elbow 12.2 5.0 Axilla Elbow 2.3 11.0 48 Axilla 14.5 4.9 Left Ulnar Motor (Abd Dig Minimi) 23.4C Wrist 3.2 <4.2 9.4 >3 B Elbow Wrist 4.2 22.5 54 >53 B Elbow 7.4 8.4 A Elbow B Elbow 1.7 10.0 59 >53 A Elbow 9.1 8.2 Comparison Summary Table Site NR Peak (ms) Norm Peak (ms) P-T Amp (V) Site1 Site2 Delta-P (ms) Norm Delta (ms) Left Median/Radial Dig I Comparison (Digit 1 - 10cm) 23.1C Median 4.9 <2.9 4.5 Median Radial 1.5 <0.4 Radial 3.4 <2.8 6.9 Left Median/Ulnar Dig IV Comparison (Digit 4 - 14cm) 22.4C Median Wr NR <3.3 Median Wr Ulnar Wr <0.4 Ulnar Wr 3.9 <3.3 9.0 Left Median/Ulnar Palm Comparison (Wrist - 8cm) 22.8C Median Palm 6.8 <2.5 15.3 Median Palm Ulnar Palm 4.5 <0.3 Ulnar Palm 2.3 <2.5 12.1 F Wave Studies NR F-Lat (ms) Lat Norm (ms) L-R F-Lat (ms) L-R Lat Norm Left Median (Mrkrs) (Abd Poll Brev) 23.2C 37.01 <33 <2.2 Left Ulnar (Mrkrs) (Abd Dig Min) 23.3C 32.56 <36 <2.5 EMG Side Muscle Nerve Root Ins Act Fibs Psw Amp Dur Poly Recrt Int Pat Comment Left Deltoid Axillary C5-6 Nml Nml Nml Nml Nml Nml Nml Nml Left Biceps Musculocut C5-6 Nml Nml Nml Nml Nml Nml Nml Nml Left Triceps Radial C6-7-8 Nml Nml Nml Nml Nml Nml Nml Nml Left Anconeus Radial C7-8 Nml Nml Nml Nml Nml Nml Nml Nml Left PronatorTeres Median C6-7 Nml Nml Nml Nml Nml Nml Nml Nml Left 1stDorInt Ulnar C8-T1 Nml Nml Nml Nml Nml Nml Nml Nml Left Abd Poll Brev Median C8-T1 Nml Nml Nml Nml Nml Nml Nml Nml NCV FINDINGS: Evaluation of the Left median motor nerve showed prolonged distal onset laten cy and decreased conduction velocity (Elbow-Wrist). The Left median sensory nerve showed pr olonged distal peak latency, reduced amplitude, and decreased conduction velocity (Wrist-2nd Digit). The Left radial sensory nerve showed prolonged distal peak latency. The Left ulna r sensory nerve showed reduced amplitude. The Left median/radial (dig I) comparison nerve s howed prolonged distal peak latency (Median), prolonged distal peak latency (Radial), and ab normal peak latency difference (Median-Radial). The Left median/ulnar (dig IV) comparison n erve showed no response (Median Wr) and prolonged distal peak latency (Ulnar Wr). The Left median/ulnar (palm) comparison nerve showed prolonged distal peak latency (Median Palm) and abnormal peak latency difference (Median Palm-Ulnar Palm). All remaining nerves (as indicat ed in the following tables) were within normal limits. F Wave studies indicate that the Left median F wave has prolonged latency. All remaining F Wave latencies were within normal limits. EMG FINDINGS: All examined muscles (as indicated in the following table) showed no evidence of electrical instability. IMPRESSION: This is an abnormal study. Nerve conduction study of the left upper extremity was abnormal. Nerve conduction study of the left upper extremity demonstrates moderate median neuropathy at the left wrist consiste nt with carpal tunnel syndrome, superimposed on probable peripheral neuropathy. The official diagnostic criterion for peripheral neuropathy requires a lower extremity stud y, which was not completed today. However the findings of this study are most consistent wi th peripheral polyneuropathy. The neuropathy affects both sensory and motor axons, but is s ensory predominant. The neuropathy appears primarily to be the result of axon loss (rather than demyelination). Needle EMG of the left upper extremity was normal. There was no evidence of cervical radic ulopathy in the left upper extremity. Please note that absence of evidence is not proof of absence. Cervical radiculopathy may still be present despite normal EMG study. Please note that nerve conduction study and EMG cannot diagnose, nor rule out cervical spinal stenosis. DISCUSSION: Mr. Garcia demonstrated normal tolerance to nerve conduction study and EMG of the left upper extremity. As noted above, this study demonstrates moderate median neuropathy at the left wrist superi mposed on probable sensory predominant axon loss peripheral neuropathy. Left carpal tunnel release is recommended. Mr. Garcia has been instructed to follow up with orthopedic surgeon Remberto Hurst MD as scheduled. Mr. Garcia was instructed to use carpal demetrio pepito wrist splint at night, only at night, every night, never during the day. Mr. Garcia will have laboratory testing to evaluate for the common and treatable causes of pe ripheral neuropathy. He has similar lab testing in 2014 with borderline results. He will r eturn to the clinic in approximately 2 months to review lab results. Mr. Garcia reports that he has history of heavy alcohol consumption. He reports that he stopped drinking alcohol . 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 He was advised and encouraged to continue abstaining from alcohol, forever. He wa s educated that some of the damage to his nerves from neuropathy is likely permanent. He wa s advised that he may have some numbness that never resolves. Carpal tunnel syndrome and peripheral neuropathy unfortunately does not offer complete expl anation for Mr. Garcia s clinical presentation. He has neck pain, atrophy of left upper ext remity, asymmetric reflexes and weakness. He has prior cervical CT which demonstrates moder ate and severe cervical spondylosis. As noted above, this study cannot diagnosis cervical s helen stenosis, and it cannot absolutely rule out cervical radiculopathy. Mr. Garcia s clin ical presentation is consistent with superimposed cervical radiculopathy. Cervical MRI has been requested to evaluate for origin of highly suspected left cervical radiculopathy. Mr. Garcia will return to the clinic to review his cervical imaging. Approximately 30 minutes was spent face to face today with Mr. Garcia, beyond the completion of the nerve conduction study and EMG above, over half of which was spent formulating and di scussing his medical treatment plan. Thank you for allowing me to be involved in the care of your patient. If you have any quest ions or comments, please do not hesitate to call. Antony Grider MD (.) Physical Medicine and Rehabilitation Cc: Remberto Hurst MD documented in this en counter Plan of Treatment Not on filedocumented as of this encounter Results T4, Free (01/17/2018 7:46 AM PDT) + +-------+ + + + | Component | Value | Ref Range | Performed | Pathologist | | | | | At | Signature | + +-------+ + + + | FT4 | 1.1 | 0.6 - 1.1 ng/dL | [facility] | | | | | [...] [address] | [place] | [phone] | | [facility] | | [address] | | | - LABORATORY | | | | + + + + + TSH (01/17/2018 7:46 AM PDT) + + + + + + | Component | Value | Ref Range | Performed | Pathologist | | | | | At | Signature | + + + + + + | TSH | 1.41Comment: This is a | 0.45 - 5.33 | [facility] | | | | third generation TSH | uIU/mL | [facility] | | | | test. | | MEDICAL | | | | [...] + | [facility] | [address] | [place] | [phone] | | [facility] | | [address] | | | - LABORATORY | | | | + + + + + Comprehensive Metabolic Panel (01/17/2018 7:46 AM PDT) + + + + + [...] + + + + | K | 3.0 (L) | 3.5 - 5.1 | [facility] | [...] + + + + | Glucose | 138 (H) | 70 - 109 mg/dL | [facility] | | | | | | [facility] | | | | | | MEDICAL | | | | | | CENTER - | | | | | | LABORATORY | | + + + + + + | BUN | 24 (H) | 7 - 18 mg/dL | [facility] | | | | | | [facility] | | | | | | MEDICAL | | | | | | CENTER - | | | | | | LABORATORY | | + + + + + + | Creatinine | 1.06 | 0.60 - 1.30 | [facility] | [...] mL/min/1.73m2 | [facility] | | | [place] | RATE,ESTIMATED | | MEDICAL | | | | mL/min/1.15y3Okbt than | | CENTER - | | [...] + + + + | Calcium | 9.7 | 8.3 - 10.5 | [facility] | | | | | mg/dL | [facility] | | | | | | MEDICAL | | | | | | CENTER - | | | | | | LABORATORY | | + + + + + + | Albumin | 4.2 | 3.2 - 5.0 g/dL | [facility] | | | | | | ST[facility] [...] + + + + | Globulin | 2.7 | 2.1 - 3.8 g/dL | [facility] | | | | | | [facility] | | | | | | MEDICAL | | | | | | CENTER - | | | | | | LABORATORY | | + + + + + + | Albumin/Nancy | 1.6 | 0.8 - 2.0 | [facility] | | | bulin Ratio | | | [facility] | | | | | | MEDICAL | | | | | | CENTER - | | | | | | LABORATORY | | + + + + + + | BUN/Creatin | 22.6 | | [facility] | | | ine Ratio | | | [facility] | [...] [address] | [place] | [phone] | | [facility] | | [address] | | | - LABORATORY | | | | + + + + + CBC with Differential (01/17/2018 7:46 AM PDT) + +-------+ + + + | Component | Value | Ref Range | Performed | Pathologist | | | | | At | Signature | + +-------+ + + + | White Blood | 6.7 | 4.0 - 11.0 K/uL | [facility] | | | Cells | | | [facility] | | | | | | MEDICAL | | | | | | CENTER - | | | | | | LABORATORY | | + +-------+ + + + | Red Blood | 4.62 | 4.30 - 5.70 | [facility] | | | Cells | | M/uL | [facility] | | | | | | MEDICAL | | | | | | CENTER - | | | | | | LABORATORY | | + +-------+ + + + | Hemoglobin | 15.3 | 13.5 - 18.0 | [facility] | | | | | g/dL | [facility] | | | | | | MEDICAL | | | | | | CENTER - | | | | | | LABORATORY | | + +-------+ + + + | Hematocrit | 44.6 | 40.0 - 51.0 % | [facility] | | | | | | [facility] | | | | | | MEDICAL | | | | | | CENTER - | | | | | | LABORATORY | | + +-------+ + + + | MCV | 96.6 | 83.0 - 101.0 fL | [facility] | | | | | | [facility] | | | | | | MEDICAL | | | | | | CENTER - | | | | | | LABORATORY | | + +-------+ + + + | MCH | 33.1 | 28.0 - 35.0 pg | [facility] | | | | | | [facility] | | | | | | MEDICAL | | | | | | CENTER - | | | | | | LABORATORY | | + +-------+ + + + | MCHC | 34.3 | 32.0 - 36.0 | [facility] | | | | | g/dL | [facility] | | | | | | MEDICAL | | | | | | CENTER - | | | | | | LABORATORY | | + +-------+ + + + | RDW-CV | 14.2 | <15.0 % | [facility] | | | | | | [facility] | | | | | | MEDICAL | | | | | | CENTER - | | | | | | LABORATORY | | + +-------+ + + + | Platelet | 327 | 140 - 440 K/uL | [facility] | | | Count | | | [facility] | | | | | | MEDICAL | | | | | | CENTER - | | | | | | LABORATORY | | + +-------+ + + + | MPV | 7.6 | fL | [facility] | | | | | | [facility] | | | | | | MEDICAL | | | | | | CENTER - | | | | | | LABORATORY | | + +-------+ + + + | % | 59.0 | 45.0 - 82.0 % | [facility] | | | Neutrophils | | | [facility] | | | | | | MEDICAL | | | | | | CENTER - | | | | | | LABORATORY | | + +-------+ + + + | % | 29.4 | 20.0 - 45.0 % | [facility] | | | Lymphocytes | | | [facility] | | | | | | MEDICAL | | | | | | CENTER - | | | | | | LABORATORY | | + +-------+ + + + | % Monocytes | 7.7 | 4.0 - 12.0 % | [facility] | | | | | | [facility] | | | | | | MEDICAL | | | | | | CENTER - | | | | | | LABORATORY | | + +-------+ + + + | % | 2.9 | 0.0 - 5.0 % | [facility] [...] +-------+ + + + | Absolute | 4.00 | 1.80 - 8.50 | [facility] | | | Neutrophils | | K/uL | [facility] | | | | | | MEDICAL | | | | | | CENTER - | | | | | | LABORATORY | | + +-------+ + + + | Absolute | 2.00 [...] [address] | [place] | [phone] | | [facility] | | [address] | | | - LABORATORY | | | | + + + + + C-Reactive Protein (01/17/2018 7:46 AM PDT) + +-------+ + + + | Component | Value | Ref Range | Performed | Pathologist | | | | | At | Signature | + +-------+ + + + | CRP | 1.34 | <8.00 mg/L | [facility] | | | | | [...] + | [facility] | [address] | [place] | [phone] | | [facility] | | [address] | | | - LABORATORY | | | | + + + + + Sedimentation Rate (01/17/2018 7:46 AM PDT) + +-------+ + + + | Component | Value | Ref Range | Performed | Pathologist | | | | | At | Signature | + +-------+ + + + | Erythrocyte | 3 | <20 mm/hr | [facility] | | | | | | [facility] | | | Sedimentati | | | [...] + | [facility] | [address] | [place] | [phone] | | [facility] | | [address] | | | - LABORATORY | | | | + + + + + Folate (01/17/2018 7:46 AM PDT) + +-------+ + + + | Component | Value | Ref Range | Performed | Pathologist | | | | | At | Signature | + +-------+ + + + | FOLATE | 9.0 | >5.8 ng/mL | [facility] | | | | [...] [address] | [place] | [phone] | | [facility] | | [address] | | | - LABORATORY | | | | + + + + + Methylmalonic Acid + Homocysteine Quant (01/17/2018 7:46 AM PDT) + + + + + + | Component | Value | Ref Range | Performed | Pathologist | | | | | At | Signature | + + + + + + | METHYLMALON | 257Comment: This test | 0 - 378 nmol/L | [facility] | | | IC ACID | was developed and its | | LAB [facility] | | | | performance | | - BKR | | | | characteristicsdetermine | | | | | | d by [facility]. It has not | | | | | | been cleared or | | | | | | approvedby the Food and | | | | | | Drug Administration. | | | | + + + + + + | HOMOCYSTEIN | 15.0 | 0.0 - 15.0 | [facility]FER[facility] | | | E, TOTAL | | umol/L | LAB [facility] | | | (REF) | | | - BKR | | + + + + + + + + | Specimen | + + | Blood | + + + + + | Narrative | Performed At | + + + | Performed at: - [place] [address], | REFERENCE LAB | | [place], [place] [id number] Drop Wire Operator: Wesley Lane MD, Phone: | [facility] | | [phone] Performed at: - [address] | | | [place], [place] [id number] Drop Wire Operator: Tani Bradshaw MD, | | | Phone: [phone] | | + + + + + + + + | Performing | Address | City/State/Zipcode | Phone Number | | Organization | | | | + + + + + | REFERENCE LAB | [address] | [place], [place] | [phone] | | [facility] | Drive [facility] | [address] | | + + + + + Vitamin B-12 (01/17/2018 7:46 AM PDT) + + + + + + | Component | Value | Ref Range | Performed | Pathologist | | | | | At | Signature | + + + + + + | VITAMIN | 411Comment: DEFICIENT: | 180 - 914 pg/mL | [facility] | | | B-12 | <145 | | [facility] | | | | pg/mLINDETERMINATE: | [...] [address] | [place] | [phone] | | [facility] | | [address] | | | - LABORATORY | | | | + + + + + MRI Cervical Spine wo Contrast (11/29/2017 3:53 [...] is | | performed on a 3 Faiaz magnet. FINDINGS: Reversal of the normal cervical [...] an area of round sclerosis in the [id number] | | body. The cord has normal [...] Carpal tunnel syndrome | + + | Peripheral polyneuropathy Unspecified hereditary and idiopathic peripheral neuropathy | + + | Cervicalgia | + + | Left arm weakness Other musculoskeletal symptoms referable to limbs | + + | Numbness and tingling in left hand Disturbance of skin sensation | + + | Atrophy of muscle of left upper arm | + + | Other osteoarthritis of spine, cervical region | + + | History of alcoholism (HCC) Personal history of alcoholism | + + documented in this encounter"
--- OUTSIDE RECORDS SUMMARY | ~2020-06-06 | XMS | Encounter Summary ---
Demographics + + + | Address | [address] | | | [facility] [address] | + + + | Home Phone | | + + + | Preferred Language | Unknown | + + + | Marital Status | Single | + + + | Anglican Affiliation | CHR | + + + | Race | White | + + + | Ethnic Group | Not or | + + + Author + + + | Author | [facility] | + + + | Organization | [facility] | + + + | Address | Unknown | + + + | Phone | Unavailable | + + + Support + + +---------+ + | Name | Relationship | Address | Phone | + + +---------+ + | Servando Boyer | ECON | Unknown | | + + +---------+ + Care Team Providers + +------+ + | Care Space Scheduler Name | Role | Phone | + +------+ + | Aryan Grossman MD | PCP | | + +------+ + Encounter Details +--------+ + + + + | Date | Type | Department | Care Team | Description | +--------+ + + + + | 07/26/ | Documentati | Urology at [facility] | Simran Osman, | | | 2017 | on | [address] | [facility] [address] | | | | | [facility] | [facility] | | | | | and Healing, | [place], [place] | | | | | | [address] | | | | | Floor [place], [place] | [phone] | | | | | [address] | | | | | | [phone] | | | +--------+ + + + [...]
--- OUTSIDE RECORDS SUMMARY | ~2020-06-06 | XMS | Encounter Summary ---
Demographics + + + | Address | NEED ADDRESS | | | [place] [address] | + + + | Home Phone [...] + | Hector Garcia | ECON | [place] [address] | | + + + + + Care Team Providers + +------+ + | Care Bicycle Inspector Name | Role | Phone | + [...] neoplasm of | [address] | | | | | prostate | [address] | [place], | | | | | (HCC) | STREET | [place] [address] | | | | | Secondary | [place], | Phone: | | | | | malignant | [place] | [phone] | | | | | neoplasm of | [address] | Fax: | | | | | bone (HCC) | Phone: | [phone] | | | | | Procedures | [phone] | | | | | | [place] DENOSUMAB | Fax: | | | | | | INJECTION, | [phone] | | | | | | 1 MG | | | +--------+--------+ + + + + Encounter Details +--------+ + + + + | Date | Type | Department | Care Team | Description | +--------+ + + + + | 06/01/ | Hospital | [facility] | NataleeMaged, | Bone metastases | | 2018 | Encounter | MED CTR CHEMO | MD [address] | (HCC); Prostate | | | | INFUSION [address] [place], | cancer (HCC) | | | | [place] | [place] [address] | | | | | [place] [address] | [phone] | | | | | [phone] | | | +--------+ + + + [...] (XGEVA) 120 mg/1.7 mL | Given | 06/01/20 | 120 mg | | Arm-Left | | injection 120 mg 120 mg, | | 18 10:55 | | | Upper | | Subcutaneous, ONCE, [facility] 06/01/18 at | | AM PDT | | | | | 1115, For 1 dose, Keep in | | | | | | | refrigerator. Allow to attain | | | | | | | room temperature prior to use., | | | | | | + +--------+ +--------+------+ + +---+---+ | | | +---+---+ documented in this encounter"
--- OUTSIDE RECORDS SUMMARY | ~2020-06-06 | XMS | Encounter Summary ---
Demographics + + + | Address | NEED ADDRESS | | | [place] [address] | + + + | Home Phone [...] Hector Garcia | ECON | [place] [address] | | + + + + + Care Team Providers + +------+ + | Care Director And Professor Name | Role | Phone | + +------+ + | No Physician | PCP | Unavailable | + +------+ + Encounter Details +--------+ + + + + | Date | Type | Department | Care Team | Description | +--------+ + + + + | 11/05/ | Hospital | [facility] | Oswaldo Victor | Carissa areata | | 2014 | Encounter | MED CTR LABORATORY | Inocente Leavitt MD | | | | | [address] [place] | [address] | | | | | [place], [place] | [place], [place] | | | | | [address] | [address] | | | | | [phone] | | | +--------+ + + + [...] | + +--------+ + + + | THYROGLOBULIN AB | Routin | 11/05/2013 | | Results for this | | | e | 2:55 PM | | procedure are in the | | | | PST | | results section. | + +--------+ + + + | SEDIMENTATION RATE | Routin | 11/05/2013 | | Results for this | | | e | 2:54 PM | | procedure are in the | | | | PST | | results section. | + +--------+ + + + | RAPID PLASMA REAGIN, | Routin | 11/05/2013 | | Results for this | | QUAL | e | 2:54 PM | | procedure are in the | | | | PST | | results section. | + +--------+ + + + | SEDIMENTATION RATE | Routin | 11/05/2013 | Alopecia areata | Results for this | | | e | 2:51 PM | | procedure are in the | | | | PST | | results section. | + +--------+ + + + | THYROGLOBULIN AB | Routin | 11/05/2013 | Alopecia areata | Results for this | | | e | 2:51 PM | | procedure are in the | | | | PST | | results section. | + +--------+ + + + | RAPID PLASMA REAGIN, | Routin | 11/05/2013 | Alopecia areata | Results for this | | QUAL | e | 2:51 PM | | procedure are in the | | | | PST | | results section. | + +--------+ + + + documented in this encounter Results Thyroglobulin Ab (11/05/2013 2:55 PM PST) + + + + + + | Component | Value | Ref Range | Performed | Pathologist | | | | | At | Signature | + + + + + + | Thyroglobul | <0.9 | 0.0 - 4.0 IU/mL | [facility] | | | in Ab | | | [facility] | | | | | | MEDICAL | | | | | | CENTER - | | | | | | LABORATORY | | + + + + + + | Thyroid | 0.4Comment: Testing | 0.0 - 9.0 IU/mL | [facility] | | | Peroxidase | Performed: [facility], [address] | [facility] | | | Antibody | [address], [place] | | MEDICAL | | | | [address] CLIA: [id number] | | CENTER - | | | | | | LABORATORY | | + + + + + + + + | Specimen | + + | | + + + + + + + | Performing | Address | City/State/Zipcode | Phone Number | | Organization | | | | + + + + + | [facility] | [address] | [place], [place] | [phone] | | [facility] | | [address] | | | - LABORATORY | | | | + + + + + | [facility] | [address] | [place] | | | [facility] | | [address], [facility] | | | - LABORATORY | | | | + + + + + Rapid Plasma Jacob Duckworth (11/05/2013 2:54 PM PST) + + + + + + | Component | Value | Ref Range | Performed | Pathologist | | | | | At | Signature | + + + + + + | Treponema | NON-REACT | NON-REACT | [facility] | | | Pallidum Ab | | | [facility] | | | RPR, Qual | | | MEDICAL | | [...] + | [facility] | [address] | [place] | [phone] | | [facility] | | [address] | | | - LABORATORY | | | | + + + + + | [facility] | [address] | [place] | | | [facility] | | [address], [facility] | | | - LABORATORY | | | | + + + + + Sedimentation Rate (11/05/2013 2:54 PM PST) + +-------+ + + + | Component | Value | Ref Range | Performed | Pathologist | | | | | At | Signature | + +-------+ + + + | Erythrocyte | 1 | 0 - 15 mm/hr | [facility] | | | | | | [facility] | | | Sedimentati | | [...] + | [facility] | [address] | [place], [place] | [phone] | | [facility] | | [address] | | | - LABORATORY | | | | + + + + + | [facility] | [address] | [place], [place] | | | [facility] | | [address] | | | - LABORATORY | | | | + + + + + Rapid Plasma Jacob Duckworth (11/05/2013 2:51 PM PST) + + + + + + | Component | Value | Ref Range | Performed | Pathologist | | | | | At | Signature | + + + + + + | Treponema | NON-REACT | NON-REACT | [facility] | | | Pallidum Ab | | | [facility] | | | RPR, Qual | | | MEDICAL | | [...] [address] | [place] | [phone] | | [facility] | | [address] | | | - LABORATORY | | | | + + + + + | [facility] | [address] | [place] | | | [facility] | | [address], [facility] | | | - LABORATORY | | | | + + + + + Sedimentation Rate (11/05/2013 2:51 PM PST) + +-------+ + + + | Component | Value | Ref Range | Performed | Pathologist | | | | | At | Signature | + +-------+ + + + | Erythrocyte | 1 | 0 - 15 mm/hr | [facility] | | | | [...] + | [facility] | [address] | [place], [place] | [phone] | | [facility] | | [address] | | | - LABORATORY | | | | + + + + + | [facility] | [address] | [place], [place] | | | [facility] | | [address] | | | - LABORATORY | | | | + + + + + Thyroglobulin Ab (11/05/2013 2:51 PM PST) + + + + + + | Component | Value | Ref Range | Performed | Pathologist | | | | | At | Signature | + + + + + + | Thyroglobul | <0.9 | 0.0 - 4.0 IU/mL | [facility] | | | in Ab | | | [facility] | | | | | | MEDICAL | | | | | | CENTER - | | | | | | LABORATORY | | + + + + + + | Thyroid | 0.4Comment: Testing | 0.0 - 9.0 IU/mL | [facility] | | | Peroxidase | Performed: [facility], [address] | [facility] | | | Antibody | [address], [place] | | MEDICAL | | | | [id number]: [id number] | | CENTER - | | | [...] + | [facility] | [address] | [place], [place] | [phone] | | [facility] | | [address] | | | - LABORATORY | | | | + + + + + | [facility] | [address] | [place], [place] | | | [facility] | | [address], [facility] | | | - LABORATORY | | | | + + + + + documented in this encounter Visit Diagnoses + + | Diagnosis | + + | Alopecia areata | + + documented in this encounter"
--- OUTSIDE RECORDS SUMMARY | ~2020-06-06 | XMS | Encounter Summary ---
Demographics + + + | Address | NEED ADDRESS | | | [place] [address] | + + + | Home Phone [...] + + + | Author | [facility] | | | and [place] | + + + | Organization | [facility] | | [...] Hector Garcia | ECON | [place] [address] | | + + + + + Care Team Providers + +------+ + | Care Line O Scribe Operator Name | Role | Phone | + +------+ + | Loi Frausto PA-C | PCP | | + +------+ + Reason for Visit +--------+--------+ + | Reason | Onset | Comments | | | Date | | +--------+--------+ + | Other | 03/01/ | | | | 2017 | | +--------+--------+ + Encounter Details +--------+ + + + + | Date | Type | Department | Care Team | Description | +--------+ + + + + | 03/01/ | Telephone | [facility] | Jessica Tsai RN | Other | | 2018 | | MED CTR MEDICAL | | | | | | ONCOLOGY CLINIC [address] | | | | | [address] | | | | | | [place] [address] | | | | | | [phone] | | | +--------+ + + + [...] this encounter Miscellaneous Notes Telephone Encounter - Jessica Tsai RN - 03/01/2018 8:22 AM Giulia was screened for h ereditary cancers and base on the information it appears he might met criteria for genetic t esting. However, Dr. Albright would like to postpone at this time. documented in this encounter Plan of Treatment Not on filedocumented as of this encounter Visit Diagnoses Not on filedocumented in this encounter"
--- OUTSIDE RECORDS SUMMARY | ~2020-06-06 | XMS | Encounter Summary ---
Demographics + + + | Address | NEED ADDRESS | | | [place] [address] | + + + | Home Phone [...] Hector Garcia | ECON | [place] [address] | | + + + + + Care Team Providers + +------+ + | Care Looper Operator Name | Role | Phone | + +------+ + | Aryan Grossman MD | PCP | | + +------+ + Reason for Visit + + + | Reason | Comments | + + + | Arm Injury | | + + + Encounter Details +--------+---------+ + + + | Date | Type | Department | Care Team | Description | +--------+---------+ + + + | 12/10/ | Office | [facility] | Theo Green | Sprain of right | | 2013 | Visit | [facility] | MD Aryan Need | elbow (Primary Dx); | | | | [facility] [address] | updated address | Place of occurrence, | | | | [address] [place] | | industrial places | | | | [place], [place] | | and premises | | | | [address] | | | | | | [phone] | | | +--------+---------+ + + + [...] + + + | Blood Pressure | 152/100 | 12/10/2013 10:24 AM | | | | | PDT | | + + + + + | Pulse | 108 | 12/10/2013 10:24 AM | | | | | PDT | | + + + + + | Temperature | 37.2 C (98.9 F) | 12/10/2013 10:24 AM | | | | | PDT | | + + + + + | Respiratory Rate | 20 | 12/10/2013 10:24 AM | | | | | PDT | | + + + + + | Oxygen Saturation | - | - | | + + + + + | Inhaled Oxygen | - | - | | | Concentration | | | | + + + + + | Weight | 85.7 kg (189 lb) | 12/10/2013 10:24 AM | | | | | PDT | | + + + + + | Height | 175.3 cm (5' 9") | 12/10/2013 10:24 AM | | | | | PDT | | + + + + + | Body Mass Index | 27.91 | 12/10/2013 10:24 AM | | | | | PDT | | + + + + + documented in this encounter Progress Notes Theo Green MD - 12/10/2013 11:40 AM PDTClaim number: [id number] Date of injury: 10/09/13 Employer: [employer] Guarantor: [employer] Complaint right arm injury, unscheduled visit with me, initial evaluation with me, followup care. Subjective: The injured worker is 48 years of age who presented without a scheduled appoint ment to [facility]ated within [facility] urgent care/occupational medicine clinic today in followup for his emergency room visit for his condition on date 12/07/13. The injured wor ker states that he is having severe pain in his arm, he rates the pain levels to be a 10 on 0-to-10 scale scale where 10 is maximum pain. He states that his discomfort has come about because of repetitive motion work at his previous employment. He began work in april, but had a change in his work responsibilities some time late in 2012 and s tarted doing repetitive movements with his arms putting boxes together. He started developi ng gradual increased pain in the right elbow area in the right shoulder area. He denies any other activities or circumstances to account for his discomfort. He is right-hand dominant . He denies any prior history of work related injuries, or other injuries to his right arm, or any pre-existing pain or troubles with his right arm. He states that he tried to work t hrough the pain, but it is not getting better, even though he was terminated from his job fo r unrelated circumstances some time ago. He therefore presented to the emergency room for e valuation, was advised on conservative treatment measures, and referred to the occupational medicine clinic for further evaluation and ongoing care. Past medical history: This is significant for him not having any specific allergies to medi cations he's only been taking aspirin for this condition. He states that he has unrelated m edical problems of alopecia, and high blood pressure. He is currently not taking any blood pressure medications. He denies any prior history of surgeries or any severe injuries. 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 He is a smoker he drinks alcoh ol but denies drinking to excess he denies any illegal drugs. His family medical history is positive for an unspecified form of cancer, also heart disease high blood pressure and arth ritis. Review of systems is positive for stiffness numbness muscle pain irregular heartbeat weakness weight loss and ringing in his ears he denies fevers chills night sweats unexplain ed weight changes or known personal diagnosis of cancer. Objective: Gen.: No acute distress, he was polite cooperative and deemed a reliable historian. No makenzie ments of pain behavior or embellishment of symptomatology was detected on her evaluation thi s date. Weight is 189 pounds, height 69 inches. Skin integument: Intact no evidence for rash or suspicious lesions. Neck: Normal to inspection, no point tenderness. Good range of motion without any signific ant increased discomfort in the right upper extremity. Chest: Normal respiratory pattern Cardiac: Regular rhythm, no evidence of peripheral circulatory compromise. Extremities: Right upper extremity is inspected, no outward evidence of trauma, deformity, or acute inflammatory condition. Primary discomfort located over the lateral epicondylar ar ea, secondary discomfort diffusely located around the shoulder area anteriorly and over the deltoid area. No point tenderness along the glenohumeral joint line reasonably good range o f motion in the right shoulder. The right elbow shows no acute inflammatory reaction, but h e has increased discomfort with palpation over lateral epicondyles. There is also decreased range of motion in the elbow secondary to discomfort in this region. Provocative testing o f the elbow for lateral epicondylitis is mildly positive. He has good distal neural circula tory response. Imaging/diagnostics: None indicated for purposes of our evaluation this date. It should be noted that plain radiography of the right shoulder, and the right elbow, were performed in the emergency room visit. The official radiology report indicated mild degenerative changes in the right shoulder, and normal findings in the right elbow films. Pending interventions: Conservative measures as noted below. Assessment: Right lateral epicondylitis. Plan: The injured worker is provided information regarding initial conservative treatment o f this condition. This will include activity modification, frequent application of cold pac ks, taking and anti-inflammatory medication on a scheduled basis (being careful to monitor b lood pressure response to this), and using a forearm brace which was provided today. We'll followup in a two-week period of time to assess clinical response, and course of his conditi on, and we also discussed at this point in time possible other treatment considerations such as a cortisone injection. Injured worker voiced understanding and agreement. Employment: Released to regular work. Restrictions: None specific for this condition. Impairment undetermined, none is anticipat ed as a consequence of this type of condition, but is not yet medically stationary for gustabo noel that determination. A M PDTdocumented in this encounter Miscellaneous Notes [facility] - 12/10/2013 12:00 AM PDT lan of Care - [facility] - 12/10/2013 12:00 AM PDTElect ronically signed by usha [facility] at 12/17/2013 10:26 AM PDTMiscellaneous - [facility] - 12/10/2013 12:00 AM PDT la n of Care - [facility] - 12/07/2013 12:00 AM PDTElectronically signed by [facility] at 12/17/2013 10:26 AM PDTdocumented in this encounter Plan of [...]
--- OUTSIDE RECORDS SUMMARY | ~2020-06-06 | XMS | Encounter Summary ---
Demographics + + + | Address | [address] | | | [place] [facility] [place] [address] | + + + | Home Phone | | + + + | Preferred Language | Unknown | + + + | Marital Status | Single | + + + | Buddhist Affiliation | CHR | + + + | Race | White | + + + | Ethnic Group | Not or | + + + Author + + + | Author | [facility] | + + + | Organization | [facility] | + + + | Address | Unknown | + + + | Phone | Unavailable | + + + Support + + +---------+ + | Name | Relationship | Address | Phone | + + +---------+ + | Servando Boyer | ECON | Unknown | | + + +---------+ + Care Team Providers + +------+ + | Care Dog Track Kennel Manager Name | Role | Phone | + +------+ + | Aryan Grossman MD | PCP | | + +------+ + Encounter Details +--------+ + + + + | Date | Type | Department | Care Team | Description | +--------+ + + + + | 12/10/ | Documentati | Urology at [facility] | Simran Osman, | | | 2017 | on | [address] | [facility] [address] [facility] | | | | | Mailcode: [id number] | [address] | | | | | [facility] | [place], [place] | | | | | and Healing, | [address] | | | | | | [phone] | | | | | Floor [place], [place] | | | | | | [address] | | | | | | [phone] | | | +--------+ + + + [...] this encounter Miscellaneous Notes Telephone Encounter - Alfreda Obregon MA - 12/10/2016 5:11 PM PDTSent orders from today, im aging orders to [facility] near patient's home in [place]. , fax: [phone] signed by Alfreda Obregon MA at 12/10/2016 5:26 PM PDTdocume nted in this encounter Plan of Treatment Not on filedocumented as of this encounter Visit Diagnoses Not on filedocumented in this encounter"
--- OUTSIDE RECORDS SUMMARY | ~2020-06-06 | XMS | Encounter Summary ---
Demographics + + + | Address | [address] | | | [facility] [address] | + + + | Home Phone [...] + + | Author | [facility] | + + + | Organization | [facility] | + + + | Address | Unknown | + + + | Phone | Unavailable | + + + Support + + +---------+ + | Name | Relationship | Address | Phone | + + +---------+ + | Servando Boyer | ECON | Unknown | | + + +---------+ + Care Team Providers + +------+ + | Care International Sales Manager Name | Role | Phone | + +------+ + | Aryan Grossman MD | PCP | | + +------+ + Reason for Referral Consultation (Routine) +--------+--------+ + + + + | Status | Reason | Specialty | Diagnoses / | Referred By | Referred To | | | | | Procedures | Contact | Contact | +--------+--------+ + + + + | Closed | | | Diagnoses | Seun, | | | | | | Malignant | MD Columba | | | | | | neoplasm of | [address] | | | | | | prostate | [address] [place], | | | | | | ([facility], [facility]IN [facility]) | [place] [address] | | | | | | Procedures | Phone: | | | | | | CONSULT TO | [phone] | | | | | | RADIATION | Fax: | | | | | | ONCOLOGY | [phone] | | +--------+--------+ + + + + Reason for Visit + + + | Reason | Comments | + + + | Postoperative Check | | + + + Global Period - Transplant (Routine) +--------+--------+ + + + + | Status | Reason | Specialty | Diagnoses / | Referred By | Referred To | | | | | Procedures | Contact | Contact | +--------+--------+ + + + + | Closed | | Urology | Diagnoses | Seun, | Seun, | | | | | DOS 08/01/14 | MD Columba | MD Columba | | | | | has a [address] | [address] | [address] | | | | | day global | [facility] [place], | [place] | | | | | period | [place] [address] | [address] Phone: | | | | | | Phone: | [phone] | | | | | | [phone] | Fax: | | | | | | Fax: | [phone] | | | | | | [phone] | | +--------+--------+ + + + + Encounter Details +--------+---------+ + + + | Date | Type | Department | Care Team | Description | +--------+---------+ + + + | 08/13/ | Office | Urology at [facility] | Columba Kohli, | Malignant neoplasm | | 2013 | Visit | [address] | MD [address] | of prostate (HCC) | | | | Mailcode: CH10U | [place], [place] [address] | (Primary Dx) | | | | [place] [facility] | [phone] | | | | | and Healing, | | | | | | | | | | | | Floor [place], [place] | | | | | | [address] | | | | | | [phone] | | | +--------+---------+ + + + [...] + + + | Blood Pressure | 132/87 | 08/13/2014 11:38 AM | | | | | PST | | + + + + + | Pulse | 113 | 08/13/2014 11:38 AM | | | | | PST [...] + | Weight | 90.3 kg (199 lb 1.6 | 08/13/2014 11:38 AM | | | | oz) | PST | | + + + + + | Height | - | - | | + + + + + | Body Mass Index | 29.39 | 08/01/2014 8:19 AM | | | | | PST | | + + + + + documented in this encounter Patient Instructions Patient Instructions Papi Snyder Rn - 08/13/2014 9:43 AM PSTAfter your prostatectomy: You may have little or no control over your urination for several days, or longer, after the catheter is taken out. It is important that you do not wait when you need to urinate. F ind a restroom as soon as you can. Nearly all men do not have good urinary control when the catheter is first removed. Time and patience is cee to regaining urinary continence. Urinary control will gradually improve as you recover. Appreciating improvement with urinary control is a slow process. The progress of urinary control is measured kwky-vh-umil, or, vbxbo-wi-ihdvz, not day-by-day. Regaining good urinar y control can be very slow and frustrating to some men. Patience and time and doing the Kege l exercises is important. You might see occasional bleeding and pink colored urine and the passage of tissue up to about 3 days after the catheter removal. Do not lift greater than 15 pounds for a total of 6 to 8 weeks after surgery. No intercourse for 4 weeks after surgery. Wear Guards for Men (or similar type of pad) for the next few weeks to months. Kegel exercises. Do 10 repetitions 3 to 4 times a day. Clamp (Kegel) your sphincter mus sandra before coughing, sneezing, upon standing. You may pass a dark brown or bowen colored clump(s) of tissue in your urine after about 6 t o 8 weeks. Your urine may then be pink or blood-tinged the next few times you urinate. This is a normal part of healing and should also go away with in hours to a couple of days. There is a risk of urethral stricture. Call or contact us as needed if your urine stream becomes weak or if you have difficulty starting your stream or seek care at your local [facility] gency department if you are unable to urinate after 4 to 6 hours of trying. If you experience fevers, chills, painful urination or urinary urgency or frequency, call or contact us as needed or seek care at your local emergency department. Erectile Dysfunction: It may take several weeks, months or years for erections to return , and there is a chance erections may never return at all after surgery. Either way, this i s a concern for nearly all men and their partners. There are option to treat erectile dysfu nction, such as oral medications, vacuum erection devices, injections or prosthesis. These options will be discussed by your doctor during one of your visits. Steri Strips: You have had steri strips placed over your surgical incision. Steri strip s help hold the incision together. They start to detach after about 1 to 3 weeks. It is ok to shower with steri strips. Do not wash or scrub them with a washcloth, but it is ok to pat them with the washcloth to clean them. To dry the steri strips simply dab the area dry. As the strips start to peel off after 1, 2 or 3 weeks it is ok to start removing the strips that are not holding the incision together any longer. Sometimes a yellowish colored fluid can seep from the incisions. This is ok. Simply p lace a clean or sterile dressing over the leak. Change the dressing as it becomes saturated or change it at least once a day until the leaking stops. The NEXT appointment and PSA blood test should be in about 5 or 6 weeks from when your c atheter was removed. Then, we would like for you to have your PSA checked every 3 to 4 month s for 1 year, then once every 6 months for 2 years, then annually. This can be accomplished by your primary care provider or by us. KEGEL EXERCISES What is it? Kegel exercises are exercises to strengthen the pelvic muscles. These exercise s involve tightening and relaxing penis and rectal muscles. Hint: The same muscle that you use to stop the urine flow. Kegel exercises can make the pelvic muscles stronger and improv e bladder control. The bladder is the organ that holds urine. What are the pelvic muscles? Many layers of muscles stretch between your legs. These muscles are attached to the front, back, and sides of your pelvic bones. Most of the pelvic support work is done by 2 pelvic mu scles. The larger of the 2 muscles is shaped like a hammock. The other muscle is shaped like a triangle. The urethra, bladder and rectum are called pelvic organs. These organs are held in place by pelvic muscles. But they may sag onto one another if the pelvic muscles are not strong. The muscles involved in Kegel exercises are the muscles used to control urination. What causes weak pelvic muscles? The pelvic muscles are normally tight. The use of an indwe lling urinary catheter may cause the pelvic muscles to weaken. Lifting heavy things or strai michael while having a BM may weaken the pelvic muscles. How are Kegel exercises done? Kegel exercises can be done any time and anywhere. You can do them in the morning, noon, or night. The exercises can be done when driving, sitting, stand ing, lying on your back, or taking a bath. A good time to practice Kegel exercises is during bathroom trips. Do these exercises as often as you think about it. Contract (tighten) the muscles around your penis and anus. (The same muscle that you use to stop the urine flow) Hold these muscles for a count of 10. Slowly release these muscles and relax for a count of 10. Repeat the cycle again. Do 3 to 4 sets of 10 contractions every day. You may need to start Kegel exercises more slowly, like squeezing and relaxing pelvic muscl es 4 seconds each. You can increase your count as your muscle tone improves. You may want to keep a Kegel exercise diary. Write down how many times a day you do Kegels and how many exercises you do each time. Are there other things I should know about Kegel exercises? It may take 3 to 6 months after starting Kegel exercises to see a difference in bladder con trol. But you may notice improved bladder control after a few weeks. Do not stop doing Kegel exercises until you have talked to your caregiver. Kegel exercises are useful for the rest of your life. Tighten your pelvic muscles before sneezing, lifting, or jumping. Men use Kegel exercises to improve bladder control. [facility] Department of Urology [phone] If you were prescribed Viagra after your prostatectomy, take 50mg of Viagra every other day . This medication promotes increased blood flow into the penis after your surgery. A discou nt voucher can be obtained online at: https://www.[employer]. Look for the "Free Trial" tab towards the top right of the web page. If you were prescribed Cialis after your prostatectomy, take 5mg of Cialis every day. This medication promotes increased blood flow into the penis after your surgery. A discount vouc her can be obtained online at: Http://www.[employer]. Look for the "Get a free trial" tab t owards the top right of the web page. Follow up in about 5 or 6 weeks with a PSA prior. You will need a PSA blood test before the next appointment: You have a couple of options. or * Show-up to the lab 1 hour prior to your appointment and the PSA will be available during your appointment. The lab is located on the 3rd floor of the [facility].| or * Have the PSA collected close to home at a local lab or primary care provider: Prior to y our next appointment you will need to have a PSA collected about 3 days prior to the appoint ment and they can fax us the results to our secure fax at [phone]. Dept. of Urology contact information: [phone] or after hours [phone]. Resources: * [facility] [employer] Cancer Resource Navigator, Raine Manzano. Raine's contact numb er is [phone]. * For information about the Annual [facility] Prostate Cancer Conference please call Angie Lennon at [phone] or email us at [email or web address]. The Prostate Cancer Support Group at [facility] meets the first Tue sday of each month at the [facility], [facility] [place], [place] [address], 3rd floor conference center in rooms 3171 & 3181 (1A & 1B), from 5:30 p.m. to 7:00 p. m. The group meetings begin with brief introductions and announcements. When a speaker comes to the group, he or she will speak for approximately 30-45 minutes, saving time for karlo sparrow. The last half hour is reserved as an informal check-in with support group attendees. Fol lowing the group meeting, attendees are welcome to use the comfortable furniture and visit i nformally on the first floor in the [facility]. Please call TATI Domínguez, at [phone] or Heather Hinton at [phone] if you have questions. Prostate Cancer Resources National Cancer [place]: http://www.cancer.gov/cancertopics/types/prostate The [place] [employer] : http://www.cancer.org Us Too!: http://www.ustoo.com/ or http://www.prostatepointers.org The Prostate Cancer Education [place] : http://www.pcaw.com The [place] Prostate Society: http://www.ameripros.org The [place] Society of Clinical Oncology: http://www.asco.org The [place] Urological Association: http://www.auanet.org Prostate Cancer Foundation: http://www.prostatecancerfoundation.org PSA Rising: http://www.psa-rising.com Caregiver Resources National Family Caregivers Association: http://www.nfcacares.org Well Spouse Foundation :http://wellspouse.org Sites validated 10/2011 documented in this encounter Progress Notes Columba Kohli MD - 08/13/2014 9:36 PM PSTI saw Mr. Garcia today in followup. 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 We discussed treatment options from here. I recommend fu psa in 6-8 weeks. We can c onsider the possibility of radiation at that time. Mr Garcia would be interested in a local r adiation oncologist, as he lives far from here. Gerson Vick, Papi Powell - 08/13/2014 12:17 PM PSTDonkarina Garcia 49 y.o. comes in today on post-op day 12for a cathete r removal. He had a robotic assisted laparoscopic retropubic prostatectomy with pelvic lymph node resection. Prior to beginning the procedure, patient identity was verified, as well as the procedure t o be performed and the site. All equipment required was ready and available. The patient wa s positioned appropriately. Verbal permission to proceed given by Dr. Kohli. He is presen t and available in clinic. The bladder was infused with 120 mL's of normal saline via the urinary catheter and at this point Mr. Garcia had the sensation to urinate. The balloon was deflated of 9 mL's of clear l iquid and the catheter was withdrawn with some mild resistance. He was able to void 120 mL' s with some notable control of urination. Mr. Garcia tolerated the procedure well. Mr. Garcia did demonstrate excellent pelvic floor muscle contractions (Kegel exercise) durin g urinating. Verbal and written information on Kegel exercises was given. Mr. Garcia was advised of possibility of incontinence, urethral stricture, occasional bleedin g and pink colored urine and the passage of tissue after the catheter removal. He understan ds to seek care at his local emergency department if he cannot urinate after 4 to 6 hours of trying. Plan: Mr. Garcia was instructed to follow up in 5 weeks in clinic with a Monitoring PSA prior. Cipro 500mg by mouth every 12 hours for 3 days. (Already taking) Future PSA: This is a verbal and signed order from Dr. Kohli given on 08/13/2014 at 12:17 PM. Verbatim readback performed and approved to proceed. Discharge AVS was reviewed with Mr. Garcia and he verbalized agreement and understanding of t hese instructions and had no questions. documented in this enc ounter Plan of Treatment Not on filedocumented as of this encounter Visit Diagnoses + + | Diagnosis | + + | Malignant neoplasm of prostate (HCC) - Primary Malignant neoplasm of prostate | + + documented in this encounter
--- OUTSIDE RECORDS SUMMARY | ~2020-06-06 | XMS | Encounter Summary ---
Demographics + + + | Address | [address] | | | [place] [facility] [address] | + + + | Home Phone | | + + + | Preferred Language | Unknown | + + + | Marital Status | Single | + + + | Mandaeism Affiliation | CHR | + + + | Race | White | + + + | Ethnic Group | Not or | + + + Author + + + | Author | [facility] | + + + | Organization | [facility] | + + + | Address | Unknown | + + + | Phone | Unavailable | + + + Support + + +---------+ + | Name | Relationship | Address | Phone | + + +---------+ + | Servando Boyer | ECON | Unknown | | + + +---------+ + Care Team Providers + +------+ + | Care Alcohol Law Enforcement Agent Name | Role | Phone | + +------+ + | Aryan Grossman MD | PCP | | + +------+ + Reason for Visit + + + | Reason | Comments | + + + | Radiology Results | DEXA scan 04/14/17 | + + + Encounter Details +--------+ + + + + | Date | Type | Department | Care Team | Description | +--------+ + + + + | 05/31/ | Documentati | Urology at [facility] | Simran Osman, | Radiology Results | | 2017 | on | [address] | ACNP [address] | (DEXA scan 04/14/17) | | | | [facility] | [facility] | | | | | and Healing, | [place], [place] | | | | | Building | [address] | | | | | Floor [place], [place] | [phone] | | | | | [address] | | | | | | [phone] | | | +--------+ + + + [...] this encounter Miscellaneous Notes Telephone Encounter - Beata Fong - 06/01/2017 8:35 AM PDTPatient returned SUKHI Field's call. The below message was read back. Patient had no further questions. Electronically sign ed by Beata Fong at 06/01/2017 8:36 AM PDTTelephone Encounter - Rashida Pina MA - 05/31/2017 3:40 PM PDTTried to call pt and the VM Box was full. Set a reminder to call pt a gain in an hour. Wanted to relay the message from simran to pt: Please call patient and let him know that hi s bone density from 04/14/17 is normal. No sign of weak or brittle bones. He should keep taki ng his vitamin D and calcium. 3:4 2 PM PDTTelephone Encounter - Simran Osman ACNP - 05/31/2017 10:45 AM PDTExternal DEXA scan reviewed from 04/14/17. Normal bone density. MAGDA Trotter Nurse Practitioner Urologic Oncology documented in thi s encounter Plan of Treatment Not on filedocumented as of this encounter Visit Diagnoses Not on filedocumented in this encounter"
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
--- OUTSIDE RECORDS SUMMARY | ~2020-06-06 | XMS | Encounter Summary ---
Demographics + + + | Address | NEED ADDRESS | | | [place] [address] | + + + | Home Phone [...] Author + + + | Author | [facility] | | | and [place] | + + + | Organization | [facility] | | | [...] + | Hector Garcia | ECON | [place] [address] | | + + + + + Care Team Providers + +------+ + | Care Cherry Grower Name | Role | Phone | + [...] medical | [address] | [place] | | | | | condition | [place] | [place] | | | | | | [place] | [place], [place] | | | | | | [address] | [address] Phone: | | | | | | Phone: | [phone] | | | | | | [phone] | Fax: | | | | | | Fax: | [phone] | | | | | | [phone] | | +--------+ + + + + + Encounter Details +--------+---------+ + + + | Date | Type | Department | Care Team | Description | +--------+---------+ + + + | 03/03/ | [facility] | [facility] | Christian Sosa | NO SHOW (Primary Dx) | | 2015 | Visit | SLEEP DISORDER [address] | MD [address] | | | | | [address] [place] | [address] [place] | | | | | [place] [address] | [place] [address] | | | | | [phone] | [phone] | | | | | | | [...] documented as of this encounter Progress Notes Christian Sosa Jr., MD - 03/03/2016 2:10 PM PDTThe patient was a NO SHOW for a 1 hour [facility] consultation. 2: 11 PM PDTdocumented in this encounter Plan of Treatment Not on filedocumented as of this encounter Visit Diagnoses + + | Diagnosis | + + | No Show - Primary Code used for vists where the patient is not seen | + + documented in this encounter"
--- OUTSIDE RECORDS SUMMARY | ~2020-06-06 | XMS | Encounter Summary ---
Demographics + + + | Address | NEED ADDRESS | | | [place] [address] | + + + | Home Phone [...] Hector Garcia | ECON | [place] [address] | | + + + + + Care Team Providers + +------+ + | Care Molder Hand Name | Role | Phone | + +------+ + | Loi Frausto PA-C | PCP | | + +------+ + Encounter Details +--------+ + + + + | Date | Type | Department | Care Team | Description | +--------+ + + + + | 12/17/ | Orders Only | [facility] | Zeeshan Hawkins, | CA of prostate (HCC) | | 2020 | | [address] | MD [address] | (Primary Dx) | | | | [place] | [place] | | | | | [address] | [address] | | | | | [phone] | | | +--------+ + + + [...] of this encounter Plan of Treatment + +------+--------+ + + | Name | Type | Priori | Associated Diagnoses | Order Schedule | | | | ty | | | + +------+--------+ + + | PSA, Diagnostic | Lab | Routin | CA of prostate | Expected: | | | | e | ([facility]) | 04/28/2020, Expires: | | | | | | 12/17/2020 | + +------+--------+ + + | Comprehensive | Lab | Routin | CA of prostate | Expected: | | Metabolic Panel | | e | ([facility]) | 04/28/2020, Expires: | | | | | | 12/17/2020 | + +------+--------+ + + documented as of this encounter Visit Diagnoses + + | Diagnosis | + + | CA of prostate (HCC) - Primary Malignant neoplasm of prostate | + + documented in this encounter"
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
--- OUTSIDE RECORDS SUMMARY | ~2020-06-06 | XMS | Encounter Summary ---
Demographics + + + | Address | NEED ADDRESS | | | [place] [address] | + + + | Home Phone [...] Hector Garcia | ECON | [place] [address] | | + + + + + Care Team Providers + +------+ + | Care Fire Prevention Forester Name | Role | Phone | + +------+ + | Aryan Grossman MD | PCP | | + +------+ + Reason for Visit + +--------+ + | Reason | Onset | Comments | | | Date | | + +--------+ + | Medication Refill | 12/19/ | | | | 2014 | | + +--------+ + Encounter Details +--------+--------+ + + + | Date | Type | Department | Care Team | Description | +--------+--------+ + + + | 12/19/ | Refill | [facility] | Aryan Grossman, | Medication Refill | | 2014 | | MEDICINE [address] | MD [address] | | | | | [place], | [address] [place], | | | | | [place] [address] | [place] [address] | | | | | [phone] | [phone] | | | | | | | [...] as of this encounter Results PSA, Diagnostic (12/19/2014 12:21 [...] [address] | [place] | [phone] | | [facility] | | [address] | | | - LABORATORY | | | | + + + + + documented in this encounter Visit Diagnoses + + | Diagnosis | + + | Sprain of right elbow, initial encounter - Primary | + + | Place of occurrence, industrial places and premises | + + | History of prostate surgery | + + documented in this encounter"
--- OUTSIDE RECORDS SUMMARY | ~2020-06-06 | XMS | Encounter Summary ---
Demographics + + + | Address | [address] | | | [place] [facility] [place] [place] [address] | + + + | Home Phone | | + + + | Preferred Language | Unknown | + + + | Marital Status | Single | + + + | Catholic Affiliation | CHR | + + + | Race | White | + + + | Ethnic Group | Not or | + + + Author + + + | Author | [facility] | + + + | Organization | [facility] [...] Team Providers + +------+ + | Care Outboard Motorboat Operator Name | Role | Phone | + +------+ + | Aryan Grossman MD | PCP | | + +------+ + Reason for Visit + +--------+ + | Reason | Onset | Comments | | | Date | | + +--------+ + | PSA - | 06/27/ | | | Prostate-specific | 2016 | | | antigen level | | | + +--------+ + Encounter Details +--------+ + + + + | Date | Type | Department | Care Team | Description | +--------+ + + + + | 06/27/ | Telephone | Urology at [facility] | Simran Osman, | PSA - | | 2016 | | [address] | ACNP [address] | Prostate-specific | | | | Mailcode: [id number] | [address] | antigen level | | | | [place] [facility] | [place], [place] | | | | | and Healing, | [address] | | | | | [facility] | [phone] | | | | | Floor [place], [place] | | | | | | [address] | | | | | | [phone] | | | +--------+ + + + [...] Telephone Encounter - Rashida Pina MA - 06/27/2017 2:48 PM PDT Called and spoke with Don. He was happy to hear his PSA result. He does not know where the office note needs to be sent, but he will call us back tomorrow with where to send it. He al so said he will think about the Bone Scan and CT Scan. Simran Osman, [facility] Rashida Pina MA Cc: P Uro Red Triage Please call patient and let him know that his PSA is down to 0.92 ng/ml today. This is g reat news. We will see him back in 3 months. He can still have the bone scan and CT scan if his pain is still an issue. Please also talk to him about his disability paperwork and find out where he needs to have my offic enote from today sent. Last 5 PSAs: Lab Results Component Value Date PSA 0.92 06/27/2017 PSA 3.03 03/28/2017 PSA 0.75 10/01/2014 PSA 22.07 07/09/2014 documented in this e ncounter Plan of Treatment Not on filedocumented as of this encounter Visit Diagnoses Not on filedocumented in this encounter"
--- OUTSIDE RECORDS SUMMARY | ~2020-06-06 | XMS | Encounter Summary ---
Demographics + + + | Address | NEED ADDRESS | | | [place] [address] | + + + | Home Phone [...] + + | Author | [facility] | | | and [place] | + + + | Organization | [facility] | | | [...] + | Hector Garcia | ECON | [place] [address] | | + + + + + Care Team Providers + +------+ + | Care Blockers Skiver Name | Role | Phone | + [...] neoplasm of | [address] | | | | | prostate | [address] | [place], | | | | | (HCC) | STREET | [place] [address] | | | | | Secondary | [place], | Phone: | | | | | malignant | [place] | [phone] | | | | | neoplasm of | [address] | Fax: | | | | | bone (HCC) | Phone: | [phone] | | | | | Procedures | [phone] | | | | | | [place] DENOSUMAB | Fax: | | | | | | INJECTION, | [phone] | | | | | | 1 MG | | | +--------+--------+ + + + + Encounter Details +--------+ + + + + | Date | Type | Department | Care Team | Description | +--------+ + + + + | 02/15/ | Hospital | [facility] | Jessi Albrightdakota Powell, | No Show | | 2018 | Encounter | MED CTR CHEMO | MD [address] | | | | | INFUSION [address] [place], | | | | | [place], | [place] [address] | | | | | [place] [address] | [phone] | | | | | [phone] | | | +--------+ + + + [...]
--- OUTSIDE RECORDS SUMMARY | ~2020-06-06 | XMS | Encounter Summary ---
Demographics + + + | Address | NEED ADDRESS | | | [place] [address] | + + + | Home Phone [...] Author + + + | Author | [facility] | | | and [place] | + + + | Organization | [facility] | | [...] Hector Garcia | ECON | [place] [address] | | + + + + + Care Team Providers + +------+ + | Care Perennial House Manager Name | Role | Phone | + +------+ + | Aryan Grossman MD | PCP | | + +------+ + Reason for Visit +--------+--------+ + | Reason | Onset | Comments | | | Date | | +--------+--------+ + | Other | 05/24/ | TREATMENT | | | 2013 | | +--------+--------+ + Encounter Details +--------+ + + + + | Date | Type | Department | Care Team | Description | +--------+ + + + + | 05/24/ | Telephone | [facility] | Zeeshan Sotelo, | Other (TREATMENT) | | 2013 | | [address] | MD [address] | | | | | [place] | [place] | | | | | [address] | [address] | | | | | [phone] | | | +--------+ + + + [...] this encounter Miscellaneous Notes Telephone Encounter - Rebecca Gagnon - 05/30/2014 11:47 AM PDTAPPOINTMENT MADE FOR 4 elephone Encounter - Ileana Martinez RN - 05/28/2014 1:26 PM Jake, please schedule for appointment to valorie schwartz treatment options. A 3:00 would be preferable. Thank you. elephone Encounter - Rebecca Gagnon - 05/24 9:37 AM PDTIKER SOTELO 2 MONTHS AGO AND THEN WENT TO [place] BUT DID NOT RECEIVE AN Y CANCER TREATMENT. HE WANTS AN APPOINTMENT TO SEE DR SOTELO TO SEE WHAT TREATMENT HE NEEDS AND WHERE HE SHOULD GO. [phone] signed by Rebecca Gagnon at 05/24/2014 9:39 AM PDTdocumented in this encounter Plan of Treatment Not on filedocumented as of this encounter Visit Diagnoses Not on filedocumented in this encounter"
--- OUTSIDE RECORDS SUMMARY | ~2020-06-06 | XMS | Encounter Summary ---
Demographics + + + | Address | NEED ADDRESS | | | [place] [address] | + + + | Home Phone [...] Author + + + | Author | [facility] | | | and [place] | + + + | Organization | [facility] | | | and [...] + | Hector Garcia | ECON | [place] [address] | | + + + + + Care Team Providers + +------+ + | Care Cork Insulation Setter Name | Role | Phone | + [...] neoplasm of | [address] | | | | | prostate | [address] | [place], | | | | | (HCC) | STREET | [place] [address] | | | | | Secondary | [place], | Phone: | | | | | malignant | [place] | [phone] | | | | | neoplasm of | [address] | Fax: | | | | | bone (HCC) | Phone: | [phone] | | | | | Procedures | [phone] | | | | | | [place] DENOSUMAB | Fax: | | | | | | INJECTION, | [phone] | | | | | | 1 MG | | | +--------+--------+ + + + + Encounter Details +--------+ + + + + | Date | Type | Department | Care Team | Description | +--------+ + + + + | 04/07/ | Hospital | [facility] | NataleeMaged, | Prostate cancer | | 2018 | Encounter | MED CTR CHEMO | MD [address] | (HCC) (Primary Dx); | | | | INFUSION [address] [place], | Bone metastases | | | | [place], | [place] [address] | (HCC) | | | | [place] [address] | [phone] | | | | | [phone] | | | +--------+ + + + [...] encounter Progress Notes Sumi Bai RN - 04/07/2018 8:38 AM PDTPatient was waiting here for 20+ minutes wh ile waiting on labs. Call to lab and machine is down for unexpected amount of time. Patient really needed to go to work so he will return Tuesday afternoon for Xgeva injection if CMP re sults indicate to move forward. Best number to reach him for any questions is [phone]. documented in this encounter Plan of Treatment Not on filedocumented as of this encounter Visit Diagnoses + + | Diagnosis | + + | Prostate cancer (HCC) - Primary Malignant neoplasm of prostate | + + | Bone metastases (HCC) Secondary malignant neoplasm of bone and bone marrow | + + documented in this encounter"
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
--- OUTSIDE RECORDS SUMMARY | ~2020-06-06 | XMS | Clinical Summary ---
Demographics + + + | Address | [address] | | | [place] [address] | + + + | Home Phone | | + + + | Preferred Language | Unknown | + + + | Marital Status | Single | + + + | Hinduism Affiliation | CHR | + + + | Race | White | + + + | Ethnic Group | Not or | + + + Author + + + | Author | [facility] | + + + | Organization | [facility] | + + + | Address | Unknown | + + + | Phone | Unavailable | + + + Support + + +---------+ + | Name | Relationship | Address | Phone | + + +---------+ + | Servando Boyer | ECON | Unknown | | + + +---------+ + Care Team Providers + +------+ + | Care Logistician Name | Role | Phone | + +------+ + | Aryan Grossman MD | PCP | | + +------+ + Source Comments [facility] is fully live on both [facility] and [facility] Allergies No Known Allergies Medications + + + +---------+------+------+-------+ | Medication | Sig | Dispensed | Refills | Star | End | Statu | | | | | | t | Date | s | | | | | | Date | | | + + + +---------+------+------+-------+ | naproxen 500 mg | Take 500 mg by mouth | | 0 | | | Activ | | oral tablet | two times daily. | | | | | e | + + + +---------+------+------+-------+ | bicalutamide | Take 1 tablet by | 30 | 0 | 03/1 | | Activ | | (CASODEX) 50 mg oral | mouth once daily. | tablet | | 04/14 | | e | | tablet | | | | 17 | | | + + + +---------+------+------+-------+ | oxybutynin CR 10 | Take 1 tablet by | 30 | 11 | 07/0 | | Activ | | mg oral tablet | mouth once daily. | tablet | | 12/13 | | e | | extended release | Indications: | | | 17 | | | | 24hrIndications: | Increased Urinary | | | | | | | increased urinary | Frequency, Urinary | | | | | | | frequency, urinary | Urgency | | | | | | | urgency | | | | | | | + + + +---------+------+------+-------+ | AMITRIPTYLINE 10 | START WITH 1 TABLET | 90 | 11 | 07/2 | | Activ | | mg oral tablet | AT BEDTIME OK TO | tablet | | 01/13 | | e | | | INCREASE TO 3 | | | 18 | | | | | TABLETS AT BEDTIME | | | | | | | | NEEDED | | | | | | + + + +---------+------+------+-------+ Active Problems + + + | Problem | Noted Date | + + + | Prostate cancer | 03/28/2017 | + + + Immunizations + + + + | Name | Administration Dates | Next Due | + + + + | Influenza, | 08/03/2014 | | | injectable, | | | | quadrivalent, | | | | preservative free | | | | (IIV4) | | | + + + + Family History + + +------+ + | Medical History | Relation | Name | Comments | + + +------+ + | Cancer | Mother | | cervical and breast | + + +------+ + | Cancer | Sister | | | + + +------+ + + +------+--------+ + | Relation | Name | Status | Comments | + +------+--------+ + | Mother | | | | + +------+--------+ + | Sister | | | | + +------+--------+ + Social History + + + +--------+------+ [...] to Quit: Yes; Counseling Given: Yes | | Comments: discussed smoking cessation, he will [...] | + + + + + | Pneumococcal | | 08/02/20 | | | vaccination (2 of 3 | 8 | 17, | | | - PCV13) | | 08/02/20 | | | | | 17, | | | | | 08/02/20 | | | | | 17 | | + + + + + | Influenza (Flu) | | 05/23/20 | | | vaccination (#1) | 0 | 15, | | | | | 08/03/20 | | | | | 14 | | + + + + + Results Not on filefrom Last 3 Months Insurance + +--------+ +--------+-------+---------+--------+ | Payer | Benefi | Subscriber | Effect | Phone | Address | Type | | | t Plan | ID | jillian | | | | | | / | | Dates | | | | | | Group | | | | | | + +--------+ +--------+-------+---------+--------+ | W[employer] HELPER MEDICAID | WET END HELPER | [id number] | Effect | | | Medica | | | [place] | | jillian | | | id | | | [place] | | for | | | | | | | | all | | | | | | | | dates | | | | + +--------+ +--------+-------+---------+--------+ | WET END HELPER MEDICAID | WET END HELPER | [id number] | 11/01/19 | | | Medica | | | [place] | | 17-Pre | | | id | | | [place] | | sent | | | | + +--------+ +--------+-------+---------+--------+ + +--------+ +--------+ + + | Guarantor Name | Accoun | Relation to | Date | Phone | Billing Address | | | t Type | Patient | of | | | | | | | | | | + +--------+ +--------+ + + | Mani Garcia | Person | Self | [birth year] | [address] | | | al/Fam | | 1964 | | [address] | | | [address] | | | [address] (Home) | [place] [address] | + +--------+ +--------+ + + | Mani Garcia | Person | Self | [birth year] | [address] | | | al/Fam | | 1964 | | [address] | | | [address] | | | [address] (Home) | [place] [address] | + +--------+ +--------+ + + Advance Directives + + + + + | Code Status | Date | Date | Comments | | | Activated | Inactivated | | + + + + + | Full Code | 08/01/2014 | 08/04/2014 | | | | 6:43 PM | 4:16 PM | | + + + + + + + + +---+ | | | | | + + + +---+ | Full Code | 08/01/2014 | 08/01/2014 | | | | 8:21 AM | 6:43 PM | | + + + +---+
--- OUTSIDE RECORDS SUMMARY | ~2020-06-06 | XMS | Encounter Summary ---
Demographics + + + | Address | NEED ADDRESS | | | [place] [address] | + + + | Home Phone [...] + | Hector Garcia | ECON | [place] [address] | | + + + + + Care Team Providers + +------+ + | Care Machine Shop Instructor Name | Role | Phone | + [...] PHYSICAL | | | Required | | pain of both | [address] | THERAPY - | | | | | shoulders | [address] | [place] | | | | | Tendonitis | [place], | [place] | | | | | of both | [place] [address] | [address] | | | | | rotator | Phone: | ST | | | | | cuffs | [phone] | [facility] | | | | | Procedures | Fax: | [place], [place] | | | | | sent 10/04 | [phone] | [address] | | | | | | | Phone: | | | | | | | [phone] | | | | | | | Fax: | | | | | | | [phone] | +--------+ + + + + + Reason for Visit + + + | Reason | Comments | + + + | Procedure | bilateral shoulder steroid injections | + + + Evaluate & Treat [...] of both | [address] | | | | n | rotator | [address] | [place], | | | | | cuffs | [place], | [place] [address] | | | | | Procedures | [place] [address] | Phone: | | | | | [place] | Phone: | [phone] | | | | | [place] | [phone] | Fax: | | | | | [place] | Fax: | [phone] | | | | | ASPIR&/INJ | [phone] | | | | | | MAJOR | | | | | | | JT/BURSA W/O | | | | | | | [place] | | | | | | | [...] + + + + | 09/29/ | Procedure | [facility] | Antony Grider, | Chronic pain of both | | 2019 | visit | PHYSIATRY [address] | MD [address] | shoulders (Primary | | | | [address] | [place] | Dx); Tendonitis of | | | | [place] | [id number] | both rotator cuffs | | | | [address] | | | | | | [phone] | | | +--------+ + + + [...] + + + | Blood Pressure | 106/89 | 09/29/2018 9:27 AM | | | | | PST | | + + + + + | Pulse | 65 | 09/29/2018 9:27 AM | | | | | PST | | + + + + + | Temperature | 37.2 C (99 F) | 09/29/2018 9:27 AM | | | [...] Weight | 89.8 kg (198 lb) | 09/29/2018 9:27 AM | | | | | PST | | + + + + + | Height | 175.3 cm (5' 9") | 09/29/2018 9:27 AM | | | | | PST | | + + + + + | Body Mass Index | 29.24 | 09/29/2018 9:27 AM | | | | | PST | | + + + + + documented in this encounter Patient Instructions Patient Instructions Antony Grider MD - 09/29/2018 9:30 AM PSTIf you develop any signs of infection (e.g. Fever, chills, redness, warmth, drainage) seek emergent medical attention and inform the clinic. Feel free to use ice, massage, and stretch after your injections to day. Please avoid direct heat, over the injections site, for 3 days following injection. documented in this encounter Progress Notes Antony Grider MD - 09/29/2018 9:30 AM PSTFormatting of this note might be different fro m the original. Referring Physician: Antony Grider MD Diagnosis: 1. Chronic pain of both shoulders 2. Tendonitis of both rotator cuffs Procedure: Bilateral shoulder subacromial steroid injection Procedure Detail: Informed consent was obtain. Risks, benefits and alternative treatments were reviewed. Risk s reviewed include, but not limited to bruising, bleeding, infection, damage to adjacent str uctures, disability and . We reviewed that with steroid injection, there is a risk of skin discoloration at the injection site. We reviewed that the benefits of this procedure w ill wear off over time. We reviewed that some people do not have any benefit from this proc edure. We discussed that diabetics may notice increased blood sugar after having steroid i njection, and that insulin, medication, and diet may need to be adjusted accordingly. We di scussed that steroid injection into any one joint should not be repeated more than 3-4 times per year. Once informed consent was obtained, two seperate 5 ml syringes were prepared. Each syringe contained 1 ml of DepoMedrol 40 mg/ml, and 4 ml of lidocaine 1%. Each syringe had a total me dication volume of 5 ml. The left shoulder subacromial space was identified from a posterior lateral approach, anato mically and with palpation. The skin over the injection site was marked with pressure. The s kin overlying the injection site was sterilized with betadine swabs x 3. The contents of the first syringe was injected into the left shoulder subacromial space from a posterior latera l approach using a 25 gauge 1-1/2 inch needle. Sterile "no touch technique" was used for th e entire procedure. The injection was tolerated without complication. After the injection the patient did report reduced pain. The right shoulder subacromial space was identified from a posterior lateral approach, ashok omically and with palpation. The skin over the injection site was marked with pressure. The skin overlying the injection site was sterilized with betadine swabs x 3. The contents of th e second syringe was injected into the right shoulder subacromial space from a posterior lat eral approach using a 25 gauge 1-1/2 inch needle. Sterile "no touch technique" was used for the entire procedure. The injection was tolerated without complication. After the injecti on the patient did report reduced pain. The patient was instructed that should they have any alarming signs or symptoms that they s hould seek emergent medical attention as well as inform my clinic. Mani Garcia has not yet started PT. He was asked to proceed with PT for his shoulders and previously recommended. He is planning a trip to [place], [place] in the next few weeks to he lp his friend move. He plans to participate in PT after his trip. He will return [facility] the [facility] in approximately 3 months to review his response to PT and injections. If his shoulder pain persists, next steps will likely include MR arthrogram of shoulders and orthopedic tyler duy consultation. Antony Grider MD (.) documented in this en counter Plan of Treatment + + +--------+ + + | Name | Type | Priori | Associated Diagnoses | Order Schedule | | | | ty | | | + + +--------+ + + | Physical Therapy - | Outpatient | Routin | Chronic pain of | Ordered: 09/29/2018 | | Ambulatory Referral | Referral | e | both shoulders | | | | | | Tendonitis of both | | | | | | rotator cuffs | | + + +--------+ + + documented as of this encounter Visit Diagnoses + + | Diagnosis | + + | Chronic pain of both shoulders - Primary Pain in joint, shoulder region | + + | Tendonitis of both rotator cuffs | + + documented in this encounter Administered Medications + + + +-------+------+ + | Medication Order | MAR | Action | Dose | Rate | Site | | | Action | Date | | | | + + + +-------+------+ + | lidocaine 1% injection 8 mL 8 | Given by | 09/29/19 | 8 mLs | | Other | | mL, Intramuscular, ONCE, Fri | Other | 19 11:39 | | | (Comment | | 09/29/18 at 1045, For 1 dose | | AM PST | | | ) | + + + +-------+------+ + +---+---+ | | | +---+---+ + + + +-------+---+ + | methylPREDNISolone acetate | Given by | 09/29/19 | 40 mg | | Other | | (DEPO-MEDROL) 40 mg/mL injection | Other | 19 11:39 | | | (Comment | | 40 mg 40 mg, Intramuscular, | | AM PST | | | ) | | ONCE, 09/29/18 at 1045, For 1 | | | | | | | dose, Not for IV use., | | | | | | + + + +-------+---+ + +---+---+ | | | +---+---+ + + + +-------+---+ + | methylPREDNISolone acetate | Given by | 09/29/19 | 40 mg | | Other | | (DEPO-MEDROL) 40 mg/mL injection | Other | 19 11:40 | | | (Comment | | 40 mg 40 mg, Intramuscular, | | AM PST | | | ) | | ONCE, 09/29/18 at 1045, For 1 | | | | | | | dose, Not for IV use., | | | | | | + + + +-------+---+ + +---+---+ | | | +---+---+ documented in this encounter
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
--- OUTSIDE RECORDS SUMMARY | ~2020-06-06 | XMS | Encounter Summary ---
Demographics + + + | Address | [address] | | | [facility] [address] | + + + | Home Phone [...] Author | [facility] [employer] [facility] | + + + | Organization | [facility] | + + + | Address | Unknown | + + + | Phone | Unavailable | + + + Support + + +---------+ + | Name | Relationship | Address | Phone | + + +---------+ + | Servando Boyer | ECON | Unknown | | + + +---------+ + Care Team Providers + +------+ + | Care Personal Financial Planner Name | Role | Phone | + +------+ + | Aryan Grossman MD | PCP | | + +------+ + Reason for Visit Medications (Routine) +--------+--------+ + + + + | [...] | | | | | Elevated | [facility] | [address] | | | | | prostate | Rd | [facility] [place] | | | | | specific | [place], [place] | [address] | | | | | antigen | [address] | Phone: | | | | | (PSA) | Phone: | [phone] | | | | | Procedures | [phone] | Fax: | | | | | Lupron | Fax: | [phone] | | | | | injections | [phone] | | +--------+--------+ + + + + Encounter Details +--------+---------+ + + + | Date | Type | Department | Care Team | Description | +--------+---------+ + + + | 06/27/ | Office | Urology at [facility] | Rn, [address] | Prostate cancer | | 2017 | Visit | [address] | Elbert Melendez | ([facility]) (Primary Dx) | | | | [place] for [facility] | Road [place], [place] | | | | | and Healing, | [address] | | | | | | | | | | | [place], [place] | | | | | | [address] | | | | | | [phone] | | | +--------+---------+ + + + [...] documented as of this encounter Progress Notes Papi Snyder - 06/27/2017 12:00 PM PDTFormatting of this note might be different from colt carrera. Subjective Reason for call or visit: Lupron injection. Objective Data collected: Mani Garcia comes in today for his Lupron injection for his prostate cancer. Per Luzma Osman NP Mr. Garcia will be receiving 2 years of ADT, not 9 months as previously prescribe d. Prior to beginning the procedure, patient identity was verified, as well as the procedure t o be performed and the site. All equipment required was ready and available. The patient wa s positioned appropriately. Verbal permission to proceed given by Simran Osman [facility]. She is present and available in clinic during the entire visit. Procedure: Lupron 22.5 mg was given intramuscularly into the left upper outer quadrant of his gluteal muscle. Mr. Garcia wanted this in the L hip again today Final ADT injection will be approx December 2018. Last PSAs: Lab Results Component Value Date PSA 0.92 06/27/2017 PSA 3.03 03/28/2017 PSA 0.75 10/01/2014 PSA 22.07 07/09/2014 Mr. Garcia verbalized agreement and understanding of these instructions and use of Lupron he had no questions upon discharge. Previous contact date: 03/28/17. New or ongoing problem: Ongoing. Assessment Nursing Risk Assessment Patient/Family's Target for [...] about plan. Notes to Healthcare Team: Notified: PA/NUCLEAR OFFICER via verbal. documented in this encoun ter [...] leuprolide IM (LUPRON DEPOT) | Given | 06/27/20 | 22.5 mg | | Left | | injection 22.5 mg 22.5 mg, | | 17 12:00 | | | Upper | | intramuscular, ONCE, 1 dose, Mon | | PM PDT | | | Quad. | | 06/27/17 at 1200 | | | | | Gluteus | + +--------+ +---------+------+---------+ +---+---+ | | | +---+---+ documented in this encounter"
--- OUTSIDE RECORDS SUMMARY | ~2020-06-06 | XMS | Encounter Summary ---
Demographics + + + | Address | [address] | | | [facility] [address] | + + + | Home Phone [...] + + | Author | [facility] | + + + | Organization | [facility] | + + + | Address | Unknown | + + + | Phone | Unavailable | + + + Support + + +---------+ + | Name | Relationship | Address | Phone | + + +---------+ + | Servando Boyer | ECON | Unknown | | + + +---------+ + Care Team Providers + +------+ + | Care Welt Treater Name | Role | Phone | + +------+ + | Aryan Grossman MD | PCP | | + +------+ + Encounter Details +--------+------+ + + + | Date | Type | Department | Care Team | Description | +--------+------+ + + + | 10/01/ | Lab | Laboratory at [facility] | | Malignant neoplasm | | 2014 | | [address] | | of prostate (HCC) | | | | [place] for [facility] | | | | | | and Healing, | | | | | | [address] | | | | | | [place], [place] | | | | | | [address] | | | | | | [phone] | | | +--------+------+ + + + [...] | + +--------+ + + + | [facility] PSA TOTAL, | Routin | 10/01/2014 | Malignant neoplasm | Results for this | | MONITORING | e | 1:29 PM | of prostate (HCC) | procedure are in the | | | | PST | | results section. | + +--------+ + + + documented in this encounter Results [facility] PSA TOTAL, MONITORING (10/01/2014 1:29 PM PST) + + + + + + | Component | Value | Ref Range | Performed | Pathologist | | | | | At | Signature | + + + + + + | PSA TOTAL | 0.75Comment: PSA values | ng/mL | [facility] | | | MONITORING | following treatment for | | LABORATORY | | | | prostate cancer are | | SERVICES, | | | | dependent upon treatment | | [facility]ENTER FOR | | | | modality. | | HEALTH + | | | | | | HEALING | | + + + + + + + + | Specimen | + + | Blood | + + + + + + + | Performing | Address | City/State/Zipcode | Phone Number | | Organization | | | | + + + + + | [facility] | [address] | [place] [address] | | | SERVICES, [facility] | | | | | HEALTH + HEALING | | | | + + + + + documented in this encounter Visit Diagnoses + + | Diagnosis | + + | Malignant neoplasm of prostate (HCC) Malignant neoplasm of prostate | + + documented in this encounter"
--- OUTSIDE RECORDS SUMMARY | ~2020-06-06 | XMS | Encounter Summary ---
Demographics + + + | Address | NEED ADDRESS | | | [place] [address] | + + + | Home Phone [...] Hector Garcia | ECON | [place] [address] | | + + + + + Care Team Providers + +------+ + | Care Meat Soaker Name | Role | Phone | + +------+ + | Aryan Grossman MD | PCP | | + +------+ + Reason for Visit + + + | Reason | Comments | + + + | Elevated PSA | | + + + | Other | Abnormal prostate | + + + Encounter Details +--------+---------+ + + + | Date | Type | Department | Care Team | Description | +--------+---------+ + + + | 02/13/ | Office | [facility] | Zeeshan Hawkins, | Elevated PSA | | 2013 | Visit | [address] | MD [address] | (Primary Dx); | | | | [place] | [place] | Abnormal prostate | | | | [address] | [id number] | exam; Prostate | | | | [phone] | | hyperplasia with | | | | | | urinary obstruction | +--------+---------+ + + + Social History [...] + + + | Blood Pressure | 142/100 | 02/13/2014 8:33 AM | | | | | PDT | | + + + + + | Pulse | 96 | 02/13/2014 8:33 AM | | | | | PDT | | + + + + + | Temperature | - | - | | + + + + + | Respiratory Rate | 16 | 02/13/2014 8:33 AM | | | | | PDT | | + + + + + | Oxygen Saturation | - | - | | + + + + + | Inhaled Oxygen | - | - | | | Concentration | | | | + + + + + | Weight | 90.3 kg (199 lb) | 02/13/2014 8:33 AM | | | | | PDT | | + + + + + | Height | 175.3 cm (5' 9") | 02/13/2014 8:33 AM | | | | | PDT | | + + + + + | Body Mass Index | 29.39 | 02/13/2014 8:33 AM | | | | | PDT | | + + + + + documented in this encounter Patient Instructions Patient Instructions Sara Alvarez RN - 02/13/2014 9:27 AM PDTDISCHARGE INSTRUCTIONS FO LLOWING PROSTATE BIOPSY 1. Drink extra liquids for the next 48 hours. 2. NO strenuous activity for the next 2 days. 3. Take 2nd antibiotic pill 12 hours from the first dose. Take the rest of the pills ever y 12 hours after that until gone. 4. It is normal to see small amounts of blood in the stool, urine and semen for the next 3 -4 weeks. 5. If any of the following symptoms occur in the next 48 hours, please call our office at [phone] of present to the emergency room immediately: FEVER SHAKING / CHILLS FLU-LIKE SYMPTOMS LARGE BLOOD CLOTS IN URINE OR STOOL UNABLE TO URINATE documented in this encounter Progress Notes Zeeshan Hawkins MD - 02/13/2014 8:43 AM PDTFormatting of this note might be different fro m the original. Mani is a 48 y.o. male patient of Aryan Grossman being seen today for a prostate biopsy . Mani has history of abnormal PSA and abnormal prostate exam, and severe obstructive voidi ng symptoms. He has an AUA symptom score of 28. Prostate gland feels diffusely firm and indurated. PSA on 11/30/2013 was 75.46. Past Medical History He has a past medical history of Hypertension; GERD (gastroesophageal reflux disease); Stro ke ([facility]); Hyperlipemia; Alcoholism ([facility]); Elevated PSA; Nicotine addiction; Alopecia; and De pression. Past Surgical History He has past surgical [...] he drinks alcohol. He reports that he uses illicit drugs. No Known Allergies Medications: Outpatient Encounter Prescriptions as of 02/13/2014 Medication Sig Dispense Refill aspirin (ASPIRIN ADULT LOW STRENGTH) 81 MG EC tablet Take 1 tablet by mouth Daily. 90 tablet 3 ciprofloxacin (CIPRO) 500 mg tablet Take 1 tab po 1 hour prior to biopsy; then take 1 t ab po every 12 hours thereafter 6 tablet 0 escitalopram (LEXAPRO) 10 mg tablet Take 1 [...] (with breakfast & dinner). 30 tablet 0 Exam: BP 142/100 | Pulse 96 | Resp 16 | Ht 1.753 m (5' 9") | Wt 90.266 kg (199 lb) | BMI 29.37 kg /m2 General: Awake, alert, oriented x3, in no acute distress. Rectal: No mass, normal sphincter tone. No stool in the rectal vault. Prostate gland is n ontender. Prostate gland demonstrates firmness and induration without a distinct nodule. Procedure: Prostate Biopsy with ultrasound guidance The indications for prostate biopsy are discussed in detail. We have also briefly discussed treatment options for prostate cancer and the differential diagnosis of abnormal PSA includ ing benign and malignant conditions. The positive predictive value of his PSA is also discus sed. Mani indicates he has been compliant with our pre-biopsy regimen. Risks, benefits, and alternatives of prostate biopsy are discussed in detail. Alternatives include doing nothing or seeking a second opinion, or continuing with observation or serial PSA testing. Risks are to include, but are not limited to, bleeding, pain, infection, sepsis (rare), idania lure of the procedure (possible sampling error), need for additional procedures, very rare n eed for blood transfusion with its risks, inherent risks of any surgical procedure and anest hesia. Mani indicates his understanding and expressed a desire to proceed with the biopsy . Mani was then placed in a left lateral decubitus position. A digital rectal exam confirme d an empty rectal vault and a non-tender prostate. Two percent xylocaine gel was introduced into the rectum as a topical anesthetic. The ultrasound probe was then placed in the rectum and the prostate gland was then scanned in real time in both transverse and sagittal planes . The prostate gland was found to be abnormal in appearance. There were suspicious hypoechoi c lesions encountered. The vast majority of the peripheral zone on both the right and left side was hypoechoic. Prostatic calcifications near the apex were encountered. Prostate gland volume was estimated at 47 mL. PSA density was 1.604. Seminal vesicles were not enlarged and were symmetric in their appearance. Local anesthesia was then administered via a abhinav-prostatic nerve block using 0.5% Sensorca ine. I then utilized the ultrasound device to guide needle biopsies of the prostate. A total of 12 biopsies of the prostate were obtained in sextant distribution pattern. Mani tolerated the procedure well. There were no complications. There was no bleeding not ed at the conclusion of the procedure. IMPRESSION: 1. Abnormal PSA. 2. Prostate hypertrophy. Prostate gland volume is estimated at 47 grams in size. 3. Abnormal prostate. Prostate is firm and indurated. It appears abnormal on ultrasound. Suspicion is raised for prostate cancer. 4. History of hematochezia. PLAN: 1. Post-biopsy instructions given to Mani. 2. Push fluids. 3. Avoid heavy lifting or strenuous exertion for 48 hours. 4. Continue antibiotics until completed. 5. Call for bleeding or fever or pain or difficulties voiding or for any concerns. 6. I asked Mani to call the office if he has not received results of his prostate biopsy within 7 days. 7. I advised Mauricio to follow up with Dr. Chauncey FELIX regarding his history of hematochezia. 8. We discussed the full range of treatment options for prostate cancer, and prostate canc er biology. Lina Aguilar CMA - 02/13/2014 8:33 AM PDTConsent form signed & time out form completed documented in this e ncounter Procedure Notes ONBASE SCAN [facility] - 02/13/2014 12:00 AM PDTAssociated Order(s): IMAGING REPORT - EXTERNAL SC AN NBASE SCAN [facility] - 014 12:00 AM PDTAssociated Order(s): PATHOLOGY - EXTERNAL SCAN documented in this encounter Miscellaneous Notes Miscellaneous - ONBASE SCAN [facility] - 02/13/2014 12:00 AM PDT iscellaneous - ONBASE SCAN [facility] - 02/13/2014 12:00 AM PDTEle ctronically signed by Paul Shanks at 02/27/2014 3:05 PM PDTdocumented in this encounter Plan of Treatment Not on filedocumented as of this encounter Procedures + +--------+ + + + | Procedure Name | Priori | Date/Time | Associated Diagnosis | Comments | | | ty | | | | + +--------+ + + + | IMAGING REPORT - | | 02/13/2014 | | Results for this | | EXTERNAL SCAN | | 12:00 AM | | procedure are in the | | | | PDT | | results section. | + +--------+ + + + | PATHOLOGY - EXTERNAL | | 02/13/2014 | | | | SCAN | | 12:00 AM | | | | | | PDT | | | + +--------+ + + + documented in this encounter Results IMAGING REPORT - EXTERNAL SCAN (02/13/2014 12:00 AM PDT) + + + | Narrative | Performed At | + + + | Ordered by an | | | unspecified provider. | | + + + + + | Transcriptions | + + | Paul Shanks - 02/13/2014 12:00 AM PDT | + + documented in this encounter Visit Diagnoses + + | Diagnosis | + + | Elevated PSA - Primary Elevated prostate specific antigen (PSA) | + + | Abnormal prostate exam Other abnormal clinical finding | + + | Prostate hyperplasia with urinary obstruction Unspecified hyperplasia of prostate | | with urinary obstruction and other lower urinary tract symptoms (LUTS) | + + documented in this encounter
--- OUTSIDE RECORDS SUMMARY | ~2020-06-06 | XMS | Encounter Summary ---
Demographics + + + | Address | [address] | | | [facility] [address] | + + + | Home Phone [...] Author + + + | Author | [facility] | + + + | Organization | [facility] | + + + | Address | Unknown | + + + | Phone | Unavailable | + + + Support + + +---------+ + | Name | Relationship | Address | Phone | + + +---------+ + | Servando Boyer | ECON | Unknown | | + + +---------+ + Care Team Providers + +------+ + | Care Detasseler Name | Role | Phone | + +------+ + | Aryan Grossman MD | PCP | | + +------+ + Reason for Visit + +--------+ + | Reason | Onset | Comments | | | Date | | + +--------+ + | Insurance | 04/06/ | DEXA Scan | | Authorization | 2016 | | + +--------+ + Encounter Details +--------+ + + + + | Date | Type | Department | Care Team | Description | +--------+ + + + + | 04/06/ | Telephone | Urology at [facility] | Simran Osman, | Insurance | | 2017 | | [address] | ACNP [address] | Authorization (DEXA | | | | Mailcode: [id number] | [address] | Scan) | | | [facility] | [place], [place] | | | | | and Healing, | [address] | | | | | Building | [phone] | | | | | Floor [place], [place] | | | | | | [address] | | | | | | [phone] | | | +--------+ + + + [...] this encounter Miscellaneous Notes Telephone Encounter - Dorian Felix MA - 04/12/2017 9:38 AM PDTTC to Leonarda w/ [facility] to inform her that no PA is necessary for DEXA scan, per [facility]. Leonarda voiced understanding. Leonarda also asked if we were going to still use the diagnosis of prosta te cancer. I informed her that if that is the diagnosis sent with the order and there is no PA needed, then we would go with that diagnosis. She voiced understanding of this as well.El ectronically signed by Dorian Felix MA at 04/12/2017 9:40 AM PDTTelephone Encounter - Staci Vu - 04/11/2017 9:17 AM PDTStsonido from [facility] calling in wanting to m agustín sure that Prostate Cancer is the most appropriate diagnosis for the DEXA scan, they are concerned patient's insurance may not cover with this diagnosis. Please call Leonarda at . elephone Rocio duncan - Joan Irvin - 04/06/2017 9:58 AM PDTYesica from [facility] left a voicemail Friday 04/06 at 8:45 AM, stating they received an order for a scan for bone density, however they're unsure if the diagnosis code will pass with insurance since it's for prostate cancer. They wanted to double check that code. They also requested the order be signed by the provider, and not the MA. She requested a call back at [phone]; ask for Ebonie. do cumented in this encounter Plan of Treatment Not on filedocumented as of this encounter Visit Diagnoses Not on filedocumented in this encounter"
--- OUTSIDE RECORDS SUMMARY | ~2020-06-06 | XMS | Encounter Summary ---
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[place], | Phone: | | | | | malignant | [place] | [phone] | | | | | neoplasm of | [address] | Fax: | | | | | bone (HCC) | Phone: | [phone] | | | | | Procedures | [phone] | | | | | | AL DENOSUMAB | Fax: | | | | | | INJECTION, | [phone] | | | | | | 1 MG | | | +--------+--------+ + + + + Encounter Details +--------+ + + + + | Date | Type | Department | Care Team | Description | +--------+ + + + + | 03/10/ | Hospital | [facility] | NataleeMaged, | Bone metastases | | 2018 | Encounter | MED [facility] | MD [address] | (HCC); Prostate | | | | INFUSION [address] [place], | cancer (HCC) | | | | [place], | [place] [address] | | | | | [place] [address] | [phone] | | | | | [phone] | | | +--------+ + + + [...] documented as of this encounter Miscellaneous Notes Treatment Plan - Nicol Burton RN - 03/10/2018 10:13 AM PDTViewed chart for weight, marija l signs and lab results. Also viewed chart for completion of medication and allergy review prior to treatment.Nicol Burton RN DATE/TIME: 03/10/2018 10:13 documented in this en counter Plan of [...] (XGEVA) 120 mg/1.7 mL | Given | 03/10/20 | 120 mg | | Arm-Left | | injection 120 mg 120 mg, | | 18 10:17 | | | Upper | | Subcutaneous, ONCE, 03/10/18 | | AM PDT | | | | | at 1030, For 1 dose, Keep in | | | | | | | refrigerator. Allow to attain | | | | | | | room temperature prior to use., | | | | | | + +--------+ +--------+------+ + +---+---+ | | | +---+---+ documented in this encounter"
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
--- OUTSIDE RECORDS SUMMARY | ~2020-06-06 | XMS | Encounter Summary ---
Demographics + + + | Address | [address] | | | [place] [facility] [address] | + + + | Home Phone [...] | Author | [facility] [employer] [facility] | + + [...] Providers + +------+ + | Care Manager Erp Name | Role | Phone | + +------+ + | Aryan Grossman MD | PCP | | + +------+ + Encounter Details +--------+ + + + + | Date | Type | Department | Care Team | Description | +--------+ + + + + | 08/04/ | Pharmacy | [facility]patient [facility] | | | | 2013 | Visit [facility] | | | | | | [address] | | | | | | [address] [place], [place] | | | | | | [address] | | | | | | [phone] | | | +--------+ + + + [...]
--- OUTSIDE RECORDS SUMMARY | ~2020-06-06 | XMS | Encounter Summary ---
Demographics + + + | Address | NEED ADDRESS | | | [place] [address] | + + + | Home Phone | | + + + | Preferred Language | Unknown | + + + | Marital Status | Single | + + + | Religion Affiliation | Unknown | + + + [...] + | Hector Garcia | ECON | [place] [address] | | + + + + + Care Team Providers + +------+ + | Care Manager Multicultural Name | Role | Phone | + [...] neoplasm of | [address] | | | | | prostate | [address] | [place], | | | | | (HCC) | [address] | [place] [address] | | | | | Secondary | [place], | Phone: | | | | | malignant | [place] | [phone] | | | | | neoplasm of | [address] | Fax: | | | | | bone (HCC) | Phone: | [phone] | | | | | Procedures | [phone] | | | | | | DE DENOSUMAB | Fax: | | | | | | INJECTION, | [phone] | | | | | | 1 MG | | | +--------+--------+ + + + + Encounter Details +--------+ + + + + | Date | Type | Department | Care Team | Description | +--------+ + + + + | 08/04/ | Hospital | [facility] | [facility], | Prostate cancer | | 2018 | Encounter | MED CTR CHEMO | MD [address] | (HCC) (Primary Dx); | | | | INFUSION [address] [place], | Bone metastases | | | | [place], | [place] [address] | (HCC) | | | | [place] [address] | [phone] | | | | | [phone] | | | +--------+ + + + [...]
--- OUTSIDE RECORDS SUMMARY | ~2020-06-06 | XMS | Encounter Summary ---
Demographics + + + | Address | NEED ADDRESS | | | [place] [address] | + + + | Home Phone [...] + | Author | [facility] | | | and [place] | + + + | Organization | [facility] | | | and [...] Hector Garcia | ECON | [place] [address] | | + + + + + Care Team Providers + +------+ + | Care Automobile Radiator Mechanic Name | Role | Phone | + +------+ + | Aryan Grossman MD | PCP | | + +------+ + Reason for Visit +--------+--------+ + | Reason | Onset | Comments | | | Date | | +--------+--------+ + | Other | 08/12/ | SCHEDULING | | | 2015 | | +--------+--------+ + Encounter Details +--------+ + + + + | Date | Type | Department | Care Team | Description | +--------+ + + + + | 08/12/ | Telephone | [facility] | Christian Sosa | Other (SCHEDULING) | | 2015 | | MED CTR SLEEP | MD Dagmar [address] [place] [address] | | | | | [address] Early | Early [facility] | | | | | [place], [place] | [place] [address] | | | | | [address] | [phone] | | | | | [phone] | | | +--------+ + + + [...] this encounter Miscellaneous Notes Telephone Encounter - Constance Frausto RN - 08/12/2016 2:54 PM PSTAttempted to call dariel ent. Voice mail not set up. elephone Encounter - Aryan Grossman MD - 08/12/2016 1:58 PM PSTPlease let patie nt know. elephone En counter - Codi Mckeon Keepy - 08/12/2016 11:07 AM PSTPatient seen for ady ho on 06/03/[address] Sosa. Split night sleep study was ordered however the patient 's insurance had lapsed. We have tried to contact this patient five times and have been brii ble to contact him as his voicemail is not set up. Sleep order cancelled, pt will need to c ontact Dr. Sosa's office if he decides to have a sleep study. do cumented in this encounter Plan of Treatment Not on filedocumented as of this encounter Visit Diagnoses Not on filedocumented in this encounter"
--- OUTSIDE RECORDS SUMMARY | ~2020-06-06 | XMS | Encounter Summary ---
Demographics + + + | Address | NEED ADDRESS | | | [place] [address] | + + + | Home Phone | | + + + | Preferred Language | Unknown | + + + | Marital Status | Single | + + + | Anabaptism Affiliation | Unknown | + + + [...] Hector Garcia | ECON | [place] [address] | | + + + + + Care Team Providers + +------+ + | Care Senior Java Data Architect Name | Role | Phone | + +------+ + | Loi Frausto PA-C | PCP | | + +------+ + Encounter Details +--------+ + + + + | Date | Type | Department | Care Team | Description | +--------+ + + + + | 01/02/ | Episode | [facility] | Lani-April, | | | 2017 | Changes | ORTHOPEDIC SURGERY | Mireya Granados MA | | | | | [address] | | | | | | [place] | | | | | | [address] | | | | | | [phone] | | | +--------+ + + + [...]
--- OUTSIDE RECORDS SUMMARY | ~2020-06-06 | XMS | Encounter Summary ---
Demographics + + + | Address | NEED ADDRESS | | | [place] [address] | + + + | Home Phone [...] + | Hector Garcia | ECON | [place] [address] | | + + + + + Care Team Providers + +------+ + | Care Doorperson Or Luggage Porter Name | Role | Phone | + [...] | | | | | | [place] | | | | | | | COLONOSCOPY | | | | | | | FLX DX | | | | | | | W/COLLJ SPEC | | | | | | | WHEN PFRMD | | | | | | | [place] | | | | | | | COLONOSCOPY | | | | | | | W/BIOPSY | | | | | | | SINGLE/MULTI | | | | | | | PLE [place] | | | | | | | COLSC FLX | | | | | | | W/RMVL OF | | | | | | | TUMOR POLYP | | | | | | | LESION SNARE | | | | | | | TQ [place] | | | | | | [...] | +--------+ + + + + | 06/10/ | Hospital | [facility] | Saul Valentine MD | Special screening | | 2017 | Encounter | MED CTR MP INTRA OP | [address] | for malignant | | | | [address] | [place] | neoplasms, colon | | | | [place], [place] | [address] | | | | | [address] | [phone] | | | | | [phone] | | | +--------+ + + + [...] the physician who did your procedure at [phone] if you have any questions or experience any of the following: ? Increasing abdominal pain, nausea, or vomiting. ? Chills and fever over 101F. ? New abdominal swelling or bloating. ? Signs of rectal bleeding (black or red stool). If you cannot get a hold of your physician, then call the [facility] [phone] . If necessary, report to the Emergency Department at [facility]. Quit smoking: If you smoke or have [...] | 0 | 02/10/20 | | | ([facility]) 0.65% nasal | route as needed. | [...] Saul Valentine MD at 06/10/2017 10:50 AM PDTHamSaul gilliland MD - 06/09/2017 9:03 AM PDT PRE-ENDOSCOPY [...] insomnia NAHUN (obstructive sleep apnea) Prostate cancer ([facility]) 11/24/2013 Radical prostatectomy Stroke ([facility]) 2012 Left sided numbness and weakness PAST SURGICAL [...] Electronically Signed by: Saul Valentine MD 06/09/2017 [facility] Portions of this chart may have been created with T[employer]emaker voice recognition software. Occasi onal wrong-word or [...] Exams Patient: Mani Garcia : 1965 Acct: [id number] Exam Date: Saturday, June 10, 2017 Doctor: [...] If unable to reach your physician, call [facility] Emergency Department at [address]. [phone] Your [...] has been signed electronically.Electronically signed by Saul Valentien MD at 11:16 AM PDTdocumented in this [...] | [facility] | | GastroenterologyPatient Name: Mani Pollo Date: 06/10/2017 | [facility] | | 10:47 AMMRN: [id number] #: [id number] of : | | | 1965Admit Type: AmbulatoryAge: 52Room: [facility] 01Gender: MaleNote | | | Status: FinalizedAttending MD: Saul Valentine [facility]: | | | ColonoscopyIndications: Screening for colorectal | | | malignant neoplasmProviders: Saul Valentine MD, Kathleen | | | ARLETH Correia, Ayan Bates, [facility], | | | Parveen Tay MD (Anesthesia [...] the anesthesiologist and the | | | commercial hvac technician in the pre-procedure area in the [...] Scope In: 10:53:03 AMScope Out: 11:12:38 AM [place] | | | [facility], [address] [place] [address] | | | [phone] | | | - Repeat colonoscopy in [...] Out: 11:12:38 AM | | | [facility], [address] [place], [place] | | | [address] | | + + -+ + +---------+ + + | Performing | Address | City/State[facility] | Phone Number | | Organization | [...] polyp, biopsy: - Tubular adenoma (two fragments). JVR:caw:[id number] | | | GROSS DESCRIPTION: The specimen, received in formalin, labeled | | | "Mani Garcia, sigmoid colon polyp," on the requisition, consists of | | | two pink-bowen tissue fragments measuring from 0.3 to 0.35 cm. | | | Submitted all in (A1). ka:BEBE:isatu PERFORMING LABORATORY: Tissue | | | processing and slide preparation were performed by [facility], | | | [address], [place] [address] (Geometry Tutor: | | | Je Michael M.D. CLIA#: [id number]). Professional interpretation | | | was performed by [facility], [facility] | | | [facility] [place], [address], [place] [address] (Medical | | | Director: Je Michael M.D.; CLIA#: [id number]). Diagnostician: | | | Je Mihcael MD Pathologist Electronically Signed 06/13/2017 | | [...] for malignant neoplasms, colon | + + documented in this encounter [...] glucose < 50, | | | Starting Tue06/10/17 at 0937, | | | Repeat in [...] | | blood glucose < 50, Starting Tue | | | 06/10/17 at 1132, Give [...]
--- OUTSIDE RECORDS SUMMARY | ~2020-06-06 | XMS | Encounter Summary ---
Demographics + + + | Address | [address] | | | [place] [facility] [place] [address] | + + + | Home Phone [...] + + + | Author | Formerly [facility] | + + + | Organization | [facility] | + + + | Address | Unknown | + + + | Phone | Unavailable | + + + Support + + +---------+ + | Name | Relationship | Address | Phone | + + +---------+ + | Servando Boyer | ECON | Unknown | | + + +---------+ + Care Team Providers + +------+ + | Care Size Stamper Name | Role | Phone | + +------+ + | Aryan Grossman MD | PCP | | + +------+ + Encounter Details +--------+---------+ + + + | Date | Type | Department | Care Team | Description | +--------+---------+ + + + | 07/31/ | Office | Preoperative | Stefanie Gudino | Preop examination | | 2013 | Visit | Medicine Clinic at | A, [facility] [address] | (Primary Dx); | | | | [facility] 4th Floor [address] | Prostate cancer | | | | [address] | [place], [place] | ([facility]) | | | | Mailcode: [facility] | [address] | | | | | [facility] | | | | | | and Healing, | | | | | | Building 1,4th Floor | | | | | | [place], [place] | | | | | | [address] | | | | | | [phone] | | | +--------+---------+ + + + Anesthesia Record + + + + + | Procedure Name | Responsible | Anesthesia Start | Anesthesia Stop Time | | | Anesthesiologist | Time | | + + + + + | OPEN RADICAL | David Wheatley MD | 08/01/14 1053 | 08/01/14 [...] | Meds | +------+ + + + No medications | on file. | + + + + + | No agents on file. | + + + + | No blood administrations on file. | + + +--------+ + + + | Type | Details | Placement | Removal | +--------+ + + + | RETIRE | 08/01/14; No; abdomen; 07/14/17 | 08/01/14 0000 by | 07/14/17 1622 by | | D - | (Automatic cleanup per RA | Nancy Lazar RN | Discontinued After | | Incisi | 3006--contact admin for | | Discharge | | on | questions.); 1622 (Automatic | | | | | cleanup per RA 3006--contact | | | | | admin for questions.) | | | +--------+ + + + | RETIRE | 08/01/14; 07/14/17 (Automatic | 08/01/14 0000 by | 07/14/17 1622 by | | D - | cleanup [...] + | RETIRE | 08/01/14; 0843; 08/04/14; 07; | 08/01/14 08 by | 08/04/14 07 by | | D - | No; 16; Left; Hand; Lidocaine; | Ivan Cabrera RN | Guillermina Pavon RN | | Periph | No; Positive; 1; Therapy | | | | eral | completed | | | | Line | | | | +--------+ + + + | RETIRE | 08/01/14; 1105; 08/03/14; 818; | 08/01/14 1105 by | 08/03/14 08 by | | D - | No; 16; Left; Forearm; No; | Ceci Thornton, | Guillermina Pavon RN | | Periph | Positive; 1; Therapy 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 | | | 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 | | | [...] + + + | Blood Pressure | 133/85 | 07/31/2014 1:05 PM | | | | | PST | | + + + + + | Pulse | 94 | 07/31/2014 1:05 PM | | | | | PST | | + + + + + | Temperature | 36.8 C (98.3 F) | 07/31/2014 1:05 PM | | | | | PST | | + + + + + | Respiratory Rate | 14 | 07/31/2014 1:05 PM | | | | | PST | | + + + + + | Oxygen Saturation | 98% | 07/31/2014 1:05 PM | | | | | PST | | + + + + + | Inhaled Oxygen | - | - | | | Concentration | | | | + + + + + | Weight | 92.1 kg (203 lb) | 07/31/2014 1:05 PM | | | | | PST | | + + + + + | Height | 175.3 cm (5' 9") | 07/31/2014 1:05 PM | neck 44cm | | | | PST | | + + + + + | Body Mass Index | 29.98 | 07/31/2014 1:05 PM | | | | | PST | | + + + + + documented in this encounter Patient Instructions Patient Instructions Stefanie Gudino NP - 07/31/2014 1:25 PM PST PREOPERATIVE INSTRUCTIONS Empty stomach before surgery On the day BEFORE your surgery, drink plenty of fluids and stay well hydrated NOTHING to eat or drink after midnight the night before surgery. This includes water, coffee, candy, mints, gum. Medications Instructions TAKE the following medications with a sip of water on the morning of surgery: sertraline Unless otherwise directed by your surgeon, do not take any Aspirin, vitamin E or non-josefina roidal anti-inflammatory (NSAIDs i.e. Advil, Aleve, Ibuprofen) or herbal supplements 7-14 da ys prior to your surgery. These drugs may interfere with normal blood clotting and may cause excessive bleeding and bruising during or after the surgery. If you are taking Coumadin (warfarin), Plavix or any other blood thinners please let you r surgical team know as medication changes may be necessary. If you need a pain medication for general purposes, use Tylenol as directed. OK to take it even on the morning of surgery, if needed. If you are in doubt about any medications that you are taking, please contact our office . Skin preparation to help avoid surgical site infections HIBICLENS GUIDE TO GENERAL SKIN CLEANSING AT HOME BEFORE SURGERY Before you bathe or shower: Read the instructions given to you by your healthcare practitioner, and begin your genera l skin cleansing protocol as directed. Carefully read all directions on the product label. Hibiclens is not to be used on the head or face, keep out of the eyes, ears and mouth. Hibiclens is not to be used in the genital area. Hibiclens should not be used if you are allergic to chlorhexidine gluconate or any other ingredients in this preparation. *See Hibiclens label for full product information and precautions. When you bathe or shower the night before your surgery: If you plan to wash your hair, do so with your regular shampoo. Then rinse hair and body thoroughly to remove any shampoo residue. Wash your face with your regular soap or water only. Thoroughly rinse your body with warm water from neck down. Use Hibiclens as you would any other liquid soap. Please do not put the Hibiclens on a wa sh cloth, apply directly to the skin and wash gently. Apply the minimum amount of Hibiclens necessary to cover the skin. Leave the Hibiclens on your skin for 1 minute, then rinse off. Rinse thoroughly with warm water. Do not use your regular soap after applying and rinsing Hibiclens. When using Hibiclens for a second day in a row (morning of surgery, as soon as you wake up) : Shower/bathe again using Hibiclens in the same method as described above. Do not apply any lotions, deodorants, powders or perfumes to the body areas that have been cleaned with Hibiclens. Other Important Guidelines Do not shave the surgical area Do not smoke, drink alcohol or use recreational drugs for 24 hours before your surgery Watch for any change in your health condition. Let your surgeon know right away if you do not feel well. Do not wear makeup, perfume, lotions, deodorant, powder or hairspray. Do not wear any jewelry to the hospital. Wear loose, comfortable clothing. Leave all your valuables at home. Allow enough travel time so you re not late for your check in for surgery. Take a bath or shower and remember to shampoo your hair using your usual hair product bef ore your arrival at the hospital. Please remember to brush your teeth the night before and the morning of your procedure. Preventing post op complications while you are in the hospital Use an incentive spirometer or peep breathe to keep your lungs working properly an d to help prevent respiratory complications. It helps you take long, deep breaths. Use it at least once every hour while you are awake. Leg and feet exercises will maintain good circulation and help prevent blood clots in yo ur legs. Sometimes your doctor will order air compression stockings. Compressed air helps the circulation in your legs. Walking and moving will help stimulate normal circulation and deep breathing. After you r surgery, your nurse may ask you to sit, stand or walk. Surgery Check in Locations Admitting [facility] Surgery Check in Time: The Preoperative Medicine Clinic is not in the position to give you accurate information regarding surgical check in time. We refer you back to your surgical office regarding this important information. Going Home Your surgical team will decide when you are medically ready to go home. If you are released to go home on the same day as your procedure/surgery please note the following: You will not be able to drive. You will be required to have a competent person drive you or accompany you by taxi or pu blic transportation on the day of discharge. It is also required that you have a competent person assist you and look after you on th e first night after you have undergone regional blocks (72 hours for patients going home wit h regional block pump), deep sedation, and/or general anesthesia. If you stayed in the hospital after surgery, please arrange for your ride to come for yo u around 9AM on the day your doctor says you can go home. If you have questions or concerns after you go home, call your doctor s office. If it is after office hours, call the [facility] wet crown blocking operator at [phone] and ask them to page him or h er. Preparing For Your Surgery Video -- 7 minutes of instructions! Access the [facility] website [email or web address] --> POPULAR RESOURCES --> Patient Guide --> Preparing for your Visit or Surgery --> "Preparing for Your Surgery" video link documented in this encounter Progress Notes Stefanie Gudino NP - 07/31/2014 1:10 PM PST PREOPERATIVE CONSULT NOTE Consulting Provider: STEFANIE GUDINO NP Referring Physician: Seun Primary Care Provider: Aryan Grossman MD Reason for Consult: Preoperative evaluation and risk assessment Proposed Procedure/Date: Radical retropubic prostatectomy 08/01/14 [facility] HISTORY OF PRESENT ILLNESS: Mani Garcia is a 49 y.o. male here for preoperative evaluat ion for above procedure. Pt has dx of High risk prostate cancer with firm prostate and abnormal PSA noted on 11/30/13, subsequent biopsy demonstrated prostate cancer on 02/13/14. He has been on Casodex. He has b een having significant lower urinary tract symptoms. PMH: HTN, TIA, smoking, GERD, arthritis, depression, anxiety. He has no hx nor symptoms of CAD, CHF, CKD or DM (treated with insulin). Functional capac ity is Intermediate. Current Medication List Name Sig ASPIRIN 81 MG TABLET,DELAYED RELEASE Take by mouth. BICALUTAMIDE 50 MG TABLET Take 50 mg by mouth once daily. LISINOPRIL 10 MG TABLET Take 10 mg by mouth once daily. Indications: HYPERTENSION NAPROXEN 500 MG TABLET Take 500 mg by mouth two times daily. SERTRALINE 50 MG TABLET Take 50 mg by mouth once daily. No Known Allergies Past Medical History Diagnosis Date Prostate cancer Hypertension Arthritis Depression GERD (gastroesophageal reflux disease) TIA (transient ischemic attack) HLD (hyperlipidemia) Alcoholism Nicotine addiction Anxiety Insomnia Past Surgical History Procedure Date Back surgery 1992 lumbar Hand surgery 2006 Family History Problem Relation Cancer Mother cervical and breast Cancer Sister History Substance Use Topics Smoking status: Smoker, Current Status Unknown -- 0.50 packs/day for 24 years Types: Cigarettes Smokeless tobacco: Not on file Comment: discussed smoking cessation, he will follow up with PCP Alcohol Use: 1 - 2.5 oz/week 2-5 drink(s) per week PHYSICAL EXAM: Last Vitals: BP 133/85 | Pulse 94 | Temp (Src) 36.8 C (98.3 F) (Oral) | RR 14 | Ht 1.75 3 m (5' 9") | Wt 92.08 kg (203 lb) | SpO2 98% | BMI 29.96 kg/(m^2) Body mass index is 29.96 kg/(m^2). PMC ROS Last edited 07/31/14 1341 by Stefanie Gudino NP ROS Pertinent HPI: Pulmonary: Within Defined [...] Color: pink Turgor: turgor normal Implants: None, LAB DATA REVIEWED/ORDERED: cmp, cbc done 05/31/14 outside records, in media, grossly wnl. Ord ered type and A1c. Lab Results Component Value Date CR 0.9 07/09/2014 EKG: Personally reviewed, SR, borderline IVCD with LAD, low voltage in frontal leads, borde rline inferior Q waves. No previous tracings for comparison. MEDICAL DECISION MAKIN ACC/ AHA Perioperative Guidelines 1. Need for emergency noncardiac surgery? b. No -> Proceed to next step. 2. Active Cardiac Conditions? These conditions mandate further investigation and manageme nt. A. Acute MS within 7 days: no B. Unstable angina/Recent MS (7- 30 days): no C. Decompensated CHF: no D. Significant arrhythmia: None E. Severe valvular disease: NONE 3. Low risk surgery? b. No -> proceed with next step. 4. Good functional capacity? MET ASSESSMENT: 5. METS--walking briskly, washing the car. 5. Assess Clinical Risk Factors? A. Ischemic heart disease: no B. Compensated / prior heart failure: no C. Diabetes mellitus (treated with insulin): no D. Renal insufficiency (Cr > 2): no E. Cerebrovascular disease: yes Rate of cardiac , non fatal MS, non fatal cardiac arrest (RCRI) 0 risk factors - 0.4% 1 risk factors - 1%, 2 risk factors - 7%, 3 or >risk factors - 11% (may benefit from perioperative beta blockers) Risk Factor Recommendations: 1-2 risk factors- proceed with planned surgery with HR control or consider noninvasive testing if it will traveler changer Surgery Risk: High Patient-related risk: Estimated ASA class -- 3 ASSESSMENT and RECOMMENDATIONS: Surgical/anesthesia risk assessment: Mani Garcia is a 49 y.o. male with diagnosis of prostate cancer, scheduled for prostatectomy. According to ACC/AHA, this patient has 1 cli nical risk factors and the recommendation is to proceed with planned surgery without additio nal cardiac testing. Medication management recommendations: The patient was advised to continue all usual med ications except as noted in Patient Instructions (After Visit Summary given to pt) Perioperative antibiotic prophylaxis: Standard (Consider IV Vanco one hr before procedu re in pts with Cephalosporin/PCN allergy and/or with hx of MRSA) HTN-controlled on lisinopril. Recommend hold lisinopril AM of surgery. Single TIA reported- no residual deficits reported. GERD-controlled without medication. Depression and anxiety- on medication. Recommend continue sertraline perioperatively. He took naproxen 500mg this AM- Dr. Kohli notified by phone. This patient is medically stable for surgery. Further testing/optimization is not needed. Thank you for the opportunity to contribute to this patient's care. NICHO Martinez NP [facility] PREOPERATIVE MEDICINE CLINIC AT [facility] 4TH FLOOR [address] [facility] [address] Greater than 50% of the time was spent counseling the patient regarding perioperative ris k assessment (cardiac, bleeding, surgical site infection, etc) and methods to avoid post op complications including respiratory failure/hospital acquired pneumonia and DVT. The patien t was also advised regarding NPO requirement, hydration before surgery, showering, general b mesha hygiene. All pre-procedure instructions given to the patient. All of patient's questio ns answered and clarified. Patient verbalized understanding of the instructions given.Elect ronically signed by Stefanie Gudino NP at 07/31/2014 1:57 PM PSTdocumented in this encou nter Procedure Notes Other, Faculty - 07/31/2014 1:22 PM PSTAssociated Order(s): 12 LEAD ECGElectronically sign ed by Faculty Other at 07/31/2014 1:22 PM PSTdocumented in this encounter Plan of Treatment Not on filedocumented as of this encounter Procedures + +--------+ + + + | Procedure Name | Priori | Date/Time | Associated Diagnosis | Comments | | | ty | | | | + +--------+ + + + | 12 LEAD ECG | Routin | 07/31/2014 | Preop examination | Results for this | | | e | 2:11 PM | | procedure are in the | | | | PST | | results section. | + +--------+ + + + | HEMOGLOBIN A1C, POC | Routin | 07/31/2014 | Preop examination | Results for this | | | e | 1:48 PM | | procedure are in the | | | | PST | | results section. | + +--------+ + + + | ANTIBODY SCREEN | Routin | 07/31/2014 | Preop examination | Results for this | | | e | 1:42 PM | | procedure are in the | | | | PST | | results section. | + +--------+ + + + | TYPE AND SCREEN | Routin | 07/31/2014 | Preop examination | Results for this | | | e | 1:42 PM | | procedure are in the | | | | PST | | results section. | + +--------+ + + + | ABO & RH TYPE | Routin | 07/31/2014 | Preop examination | Results for this | | | e | 1:42 PM | | procedure are in the | | | | PST | | results section. | + +--------+ + + + documented in this encounter Results 12 LEAD ECG (07/31/2014 2:11 PM PST) + + + + + + | Component | Value | Ref Range | Performed | Pathologist | | | | | At | Signature | + + + + + + | VENTRICULAR | 84 | bpm | [facility] | | | RATE | | | OF | | | | | | CARDIOLOGY | | + + + + + + | ATRIAL RATE | 85 | bpm | [facility] | | | | | | OF | | | | | | CARDIOLOGY | | + + + + + + | P-R | 172 | ms | [facility] | | | INTERVAL | | | OF | | | | | | CARDIOLOGY | | + + + + + + | P AXIS | 59 | deg | [facility] | | | | | | OF | | | | | | CARDIOLOGY | | + + + + + + | QRS | 108 | ms | [facility] | | | DURATION | | | OF | | | | | | CARDIOLOGY | | + + + + + + | QT | 372 | ms | [facility] | | | | | | OF | | | | | | CARDIOLOGY | | + + + + + + | QTC-BAZETT | 440 | ms | [facility] | | | | | | OF | | | | | | CARDIOLOGY | | + + + + + + | R AXIS | 33 | deg | [facility] | | | | | | OF | | | | | | CARDIOLOGY | | + + + + + + | T AXIS | 42 | deg | [facility] | | | | | | OF | | | | | | CARDIOLOGY | | + + + + + + | ECG | SINUS RHYTHMBORDERLINE | | [facility] | | | IMPRESSION | IVCD WITH LADLOW VOLTAGE | | OF | | | | IN FRONTAL | | CARDIOLOGY | | | | LEADSBORDERLINE INFERIOR | | | | | | Q WAVES- BORDERLINE ECG | | | | | | -Electronically signed | | | | | | by: SONIDO FLORES | | | | | | 08-02-2014 13:04:55 | | | | + + + + + + + + | Specimen | + + | | + + + + + | Narrative | Performed At | + + + | | [facility] | | | CARDIOLOGY | + + + + + | Procedure Note | + + | Analia Acevedo - 07/31/2014 1:22 PM PST | + + + + + + + | Performing | Address | City/State/Zipcode | Phone Number | | Organization | | | | + + + + + | [facility] | [address] | [place], [place] | | | CARDIOLOGY | [address] | [address] | | + + + + + HEMOGLOBIN A1C,POC (07/31/2014 1:48 PM PST) + +-------+ + + + | Component | Value | Ref Range | Performed | Pathologist | | | | | At | Signature | + +-------+ + + + | HEMOGLOBIN | 4.8 | 4.0 - 5.7 % | [facility], | | | A1C,POC | | | POINT OF | | | | | | CARE TESTS | | + +-------+ + + + + + | Specimen | + + | Blood | + + + + + + + | Performing | Address | City/State/Zipcode | Phone Number | | Organization | | | | + + + + + | [facility] | [address] | [place] [address] | | | OF CARE TESTS | | | | + + + + + ANTIBODY SCREEN (07/31/2014 1:42 PM PST) + + + + + + | Component | Value | Ref Range | Performed | Pathologist | | | | | At | Signature | + + + + + + | Antibody | Negative | | [facility] | | | Screen | | | [facility] | | | [...] [facility] | [address] | [place] [address] | | | SERVICES, | [address] | | | | TRANSFUSION MEDICINE | | | | + + + + + ABO & RH TYPE (07/31/2014 1:42 PM PST) + + + + + [...] [facility] | [address] | [place] [address] | | | SERVICES, | [address] | | | | TRANSFUSION MEDICINE | | | | + + + + + documented in this encounter Visit Diagnoses + + | Diagnosis | + + | Preop examination - Primary Preoperative examination, unspecified | + + | Prostate cancer (HCC) Malignant neoplasm of prostate | + + documented in this encounter
--- OUTSIDE RECORDS SUMMARY | ~2020-06-06 | XMS | Encounter Summary ---
Demographics + + + | Address | NEED ADDRESS | | | [place] [address] | + + + | Home Phone [...] Hector Garcia | ECON | [place] [address] | | + + + + + Care Team Providers + +------+ + | Care Market Research Executive Name | Role | Phone | + +------+ + | Loi Frausto PA-C | PCP | | + +------+ + Reason for Visit + + + | Reason | Comments | + + + | CPAP Follow Up | | + + + Encounter Details +--------+---------+ + + + | Date | Type | Department | Care Team | Description | +--------+---------+ + + + | 03/14/ | Office | [facility] | Papi Voss PA | NAHUN on CPAP (Primary | | 2018 | Visit | SLEEP DISORDER [address] | [address] | Dx) | | | | [address] | [place] | | | | | [place] [address] | [id number] | | | | | [phone] | | | +--------+---------+ + + + [...] + + + | Blood Pressure | 148/90 | 03/14/2018 12:52 PM | | | | | PDT | | + + + + + | Pulse | 118 | 03/14/2018 12:52 PM | | | | | PDT | | + + + + + | Temperature | - | - | | + + + + + | Respiratory Rate | 16 | 03/14/2018 12:52 PM | | | | | PDT | | + + + + + | Oxygen Saturation | 98% | 03/14/2018 12:52 PM | | | | | PDT | | + + + + + | Inhaled Oxygen | - | - | | | Concentration | | | | + + + + + | Weight | 91.5 kg (201 lb 11.5 | 03/14/2018 12:52 PM | | | | oz) | PDT | | + + + + + | Height | - | - | | + + + + + | Body Mass Index | 29.79 | 03/10/2018 12:29 PM | | | | | PDT | | + + + + + documented in this encounter Progress Notes Papi Voss PA - 03/14/2018 1:00 PM PDT Subjective: Patient ID: Mani Garcia is a 52 y.o. male. HPI last office visit: 03/06/2018 date of polysomnography: 12/26/2017 AHI: 9.4 RDI: 16.9 O2%: 89% with 0.0 minutes below 88% Machine type: ResMed AirSense 10 Mask type: ResMed P10 nasal pillows DME: [employer] in [place] pressure: 5-15 cm Median: 8.0 cm 95%: 11.3 cm maximum: 12.7 cm Nights using CPAP: 10/11 % of nights >4 hours: 63% average usage (all nights): 3:38 average usage (nights used): 4:00 AHI: 4.6 (0.9 central) Mani comes in for CPAP compliance. He is doing pretty well with his CPAP, wearing it reg ularly but struggling with wearing it for the duration of his sleep on many nights. He says part of struggles have been with his mask leaking. He has made adjustments several differe nt times. The last two nights have been much better for him. He was able to wear it for lo nger because of the better mask fit. He says last night he was able to wear it for the dura tion of his sleep. He slept better than he has in quite some time and had fewer disruptions . He woke once to use the bathroom, but was able to get back to sleep with his CPAP quickly . He woke with his mask on and has felt a little more rested today. His leaks were well co ntrolled last night. They have been significant most of the other nights. His apnea was al so well controlled last night and hasn't been many of the other nights. He feels that he wi ll continue to improve as he adjusts to the process of using CPAP. I have discussed the download in detail. This shows that his sleep apnea is controlled, wi th an AHI of 4.6. It also shows that his leaks are significant on some nights and controlle d on some nights. Review of Systems Objective: BP 148/90 | Pulse 118 | Resp 16 | Wt 91.5 kg (201 lb 11.5 oz) | SpO2 98% | BMI 29.79 k g/m Physical Exam Assessment: Problem #1: OBSTRUCTIVE SLEEP APNEA ([id number]) This is controlled with CPAP. He is doing pretty well with his CPAP usage, but he has stru ggled with wearing it for the duration of his sleep on many nights. Plan: 1. He is to continue with CPAP indefinitely. 2. I have recommended that he work toward wearing his CPAP 100% of the time he is asleep. I will follow up again in 1 month, sooner prn. Fifteen minutes were spent [id number], wi th the majority of time spent in counseling. Papi Voss PA-C Cc: Loi Frausto PA-C documented in this enco unter Plan of Treatment Not on filedocumented as of this encounter Visit Diagnoses + + | Diagnosis | + + | NAHUN on CPAP - Primary Obstructive sleep apnea (adult) (pediatric) | + + documented in this encounter"
--- OUTSIDE RECORDS SUMMARY | ~2020-06-06 | XMS | Encounter Summary ---
Demographics + + + | Address | NEED ADDRESS | | | [place] [address] | + + + | Home Phone [...] Hector Garcia | ECON | [place] [address] | | + + + + + Care Team Providers + +------+ + | Care Metal Off Bearer Name | Role | Phone | + +------+ + | Aryan Grossman MD | PCP | | + +------+ + Reason for Visit + + + | Reason | Comments | + + + | Follow-up | | + + + | Facial Swelling | edema has decreased, abx have helped | + + + | Medication | Off of BP medication | | Management | | + + + Encounter Details +--------+---------+ + + + | Date | Type | Department | Care Team | Description | +--------+---------+ + + + | 04/21/ | Office | [facility] | Aryan Grossman, | Angioedema, sequela | | 2015 | Visit | MEDICINE [address] | [address] | (Primary Dx); | | | | [address] [place], | [address] [place], | Essential | | | | [place] [address] | [place] [address] | hypertension; Dental | | | | [phone] | [phone] | abscess; Depression | | | | | | | [...] + | Blood Pressure | 140/100 | 04/21/2015 10:36 AM | | | | | PDT | | + + + + + | Pulse | 77 | 04/21/2015 10:36 AM | | | | | PDT | | + + + + + | Temperature | 36.6 C (97.8 F) | 04/21/2015 10:36 AM | | | | | PDT | | + + + + + | Respiratory Rate | 16 | 04/21/2015 10:36 AM | | | | | PDT | | + + + + + | Oxygen Saturation | 97% | 04/21/2015 10:36 AM | | | | | PDT | | + + + + + | Inhaled Oxygen | - | - | | | Concentration | | | | + + + + + | Weight | 86.2 kg (190 lb) | 04/21/2015 10:36 AM | | | | | PDT | | + + + + + | Height | 175.3 cm (5' 9") | 04/21/2015 10:36 AM | | | | | PDT | | + + + + + | Body Mass Index | 28.06 | 04/21/2015 10:36 AM | | | | | PDT | | + + + + + documented in this encounter Progress Notes Aryan Grossman MD - 04/21/2015 11:27 AM PDTFormatting of this note might be different f rom the original. Subjective: Patient ID: Mani Garcia is a 49 y.o. male. HPI Angioedema, Recently stopped the lisinopril at advice of ER. . The whole face on the rig ht was swollen on the right, This is resolved now Leukocytosis, tooth abcess. related to recent tooth abcess. He is seeing Dr Enriquez. Depression and Anxiety, He is just trembling. He is worried all the time about something. 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 Some Fatigue. Moodiness, Some crying. Guilt. Denies HI or SI. He took the lexapro in the past but him dizzy. The zoloft worked fine but he stopped it on his own because he decided he is not de pressed at all at this point, No SE from D/c. PMH: HTN Hyperlipidemia Alcoholism PSH: Right thumb 2007 Lumbar Diskectomy 1992 Fhx: Mom 64 Ovarian Cancer Dad 50 of MS complications Sister 54, recurrent lymphoma,. First diagnosed with cancer in 's Shx: Born in [place] , 16 year old son Lives in [place] since 2012, Grew up in [place] heavy [...] range of motion Skin, no gross lesions Face is no longer swollen or red at all. Assessment: 1. Angioedema, sequela 2. Essential hypertension 3. Dental abscess 4. Depression Plan: Finish clindamycin, cozaar trial. Monitor BP. RTC 2-3 weeks as scheduled. documented in this encounter Plan of Treatment Not on filedocumented as of this encounter Visit Diagnoses + + | Diagnosis | + + | Angioedema, sequela - Primary | + + | Essential hypertension Unspecified essential hypertension | + + | Dental abscess Periapical abscess without sinus | + + | Depression Depressive disorder, not elsewhere classified | + + documented in this encounter
--- OUTSIDE RECORDS SUMMARY | ~2020-06-06 | XMS | Encounter Summary ---
Demographics + + + | Address | NEED ADDRESS | | | [place] [address] | + + + | Home Phone [...] Hector Garcia | ECON | [place] [address] | | + + + + + Care Team Providers + +------+ + | Care Umbrella Tipper Name | Role | Phone | + +------+ + | Loi Frausto PA-C | PCP | | + +------+ + Encounter Details +--------+ + + + + | Date | Type | Department | Care Team | Description | +--------+ + + + + | 10/13/ | Hospital | [facility] | Antony Grider, | Chronic midline low | | 2018 | Encounter | MED [facility]RAY [address] | MD [address] | back pain with | | | | [address] [place] | [place], [place] | right-sided | | | | [place] [address] | [id number] | sciatica; Right leg | | | | [phone] | | weakness; Right leg | | | | | | numbness | +--------+ + + + + Social [...] + +--------+ + + + | XR LUMBAR SPINE 4 + | Routin | 10/13/2017 | Chronic midline | Results for this | | VW | e | 9:50 AM | low back pain with | procedure are in the | | | | PST | right-sided sciatica | results section. | | | | | Right leg weakness | | | | | | Right leg numbness | | + +--------+ + + + documented in this encounter Results XR Lumbar Spine 4 [...] midline low back pain with right-sided sciatica | + + | Right leg weakness Other musculoskeletal symptoms referable to limbs | + + | Right leg numbness Disturbance of skin sensation | + + documented in this encounter"
--- OUTSIDE RECORDS SUMMARY | ~2020-06-06 | XMS | Encounter Summary ---
Demographics + + + | Address | NEED ADDRESS | | | [place] [address] | + + + | Home Phone [...] Hector Garcia | ECON | [place] [address] | | + + + + + Care Team Providers + +------+ + | Care Contract Analyst Name | Role | Phone | + +------+ + | Loi Frausto PA-C | PCP | | + +------+ + Encounter Details +--------+ + + + + | Date | Type | Department | Care Team | Description | +--------+ + + + + | 06/28/ | Hospital | [facility] | De Guerra | Bilateral shoulder | | 2019 | Encounter | [facility] [address] | [address] | pain, unspecified | | | | [address] [place] | [address] [place] | chronicity | | | | [address] | [place] [address] | | | | | [address] | [phone] | | | | | [phone] | | | +--------+ + + + [...] XR SHOULDER RIGHT 2 | Routin | 06/28/2019 | Bilateral shoulder | Results for this | | + VW | e | 3:03 PM | [...]
--- OUTSIDE RECORDS SUMMARY | ~2020-06-06 | XMS | Encounter Summary ---
Demographics + + + | Address | NEED ADDRESS | | | [place] [address] | + + + | Home Phone [...] Author + + + | Author | [facility] | | | and [place] | + + + | Organization | [facility] | | | and [...] Hector Garcia | ECON | [place] [address] | | + + + + + Care Team Providers + +------+ + | Care Shipping Coordinator Name | Role | Phone | + +------+ + | Aryan Grossman MD | PCP | | + +------+ + Reason for Visit + + + | Reason | Comments | + + + | Fall | | + + + | Alcohol Intoxication | | + + + Encounter Details +--------+ + + + + | Date | Type | Department | Care Team | Description | +--------+ + + + + | 12/09/ | Emergency | [facility] | Zeeshan Jane, | Acute alcoholism | | 2016 - | | [facility] | [address] | (FORMERLY [facility]) (Primary Dx); | | | | [place] [address] | [place], [place] | Alcohol | | 12/10/ | | [place], [place] | [address] | intoxication, with | | 2015 | | [id number] | | delirium ([facility]); | | | | [phone] | | Cervical stenosis of | | | | | | spine | +--------+ + + + + Social [...] + + + | Blood Pressure | 104/75 | 12/11/2015 12:11 AM | | | | | PDT | | + + + + + | Pulse | 111 | 12/11/2015 12:11 AM | | | | | PDT | | + + + + + | Temperature | - | - | | + + + + + | Respiratory Rate | 16 | 12/11/2015 12:11 AM | | | | | PDT | | + + + + + | Oxygen Saturation | 97% | 12/11/2015 12:11 AM | | | | | PDT | | + + + + + | Inhaled Oxygen | - | - | | | Concentration | | | | + + + + + | Weight | 92.5 kg (204 lb) | 12/10/2015 2:23 PM | | | | | PDT | | + + + + + | Height | 175.3 cm (5' 9") | 12/10/2015 2:23 PM | | | | | PDT | | + + + + + | Body Mass Index | 30.13 | 12/10/2015 2:23 PM | | | | | PDT | | + + + + + documented in this encounter Discharge Instructions Instructions Aryan Gaytan MD - 12/11/2015Return for severe worsening sympto ms. AttachmentsThe following attachments cannot be sent through Care Everywhere.ALCOHOLISM: GET TING HELP (TONGAN)documented in this encounter Medications at Time of Discharge + + + +---------+ + + | Medication | Sig | Dispensed | Refills | Start | End Date | | | | | | Date | | + + + +---------+ + + | ALPRAZolam (XANAX) | Take 1 tablet by | 5 | 0 | 05/14/20 | 09/08/201 | | 0.25 mg | mouth Twice [...] documented as of this encounter Progress Notes Martina Patel, PharmD - 12/10/2015 6:27 PM PDTPHARMACY SERVICES: MEDICATION REVIEW Mani Garcia is a 50 y.o. male presenting on 12/10/2015 14:22 for alcohol intoxication. Patient is not able to give reliable history due to intoxication. Called and spoke with patient's pharmacy listed in his medical records ([facility] in [facility]). Recently filled prescriptions include: Zolpidem 10mg nightly as needed - filled 12/09/15 Losartan 50mg daily - filled 11/23/15 Naproxen 500mg BID - filled 11/13/15 Sertraline 100mg daily - filled 11/08/15 Per [facility], patient has not filled lisinopril since Apr 2015. Upon review of patient's ch art, it appears lisinopril was stopped by provider and patient was switched to losartan. Dre l therefore remove lisinopril from [employer] med list. Last fill of alprazolam was a one time prescription for #5 0.25mg tablets in Apr 2015. UDS today negative for benzodiazepines. Unable to confirm if patient is taking aspirin 81mg at this time. Medication review performed by Martina Patel PHARMD 12/10/2015 18:27 documented in th is encounter ED Notes Myrna Farmer RN - 12/11/2015 12:11 AM PDTPatient departed. Discharge instructions given, all questions answered. Patient verbalize understanding of discharge instructions. Patient alert and oriented, showing no signs of distress. Patient ambulated out of ED independently w/ steady gait. Patient waiting in lobby to find a ride home. ucila, Aryan Maldonado MD - 12/11/2015 12:11 AM PDT Patient signed out to me by Dr. Jane at change of shift. Currently he is ambulatory wit hout difficulty. He would like to leave the emergency room. Currently he feels like he is feeling better. Patient at this point is stable for discharge. 1. Acute alcoholism (HCC) 2. Alcohol intoxication, with delirium (HCC) 3. Cervical stenosis of spine Aryan Gaytan MD 12/11/15 0012 Zeeshan Hagen MD - 12/10/2015 2:22 PM PDT [facility] Mani Garcia Emergency Department Encounter Note [address] [place] [id number] PCP:Aryan Grossman MD [phone] CHIEF COMPLAINT: Chief Complaint Patient presents with Fall Alcohol Intoxication ED Room: ED07/ED07 ED Triage Notes Ethel Gaona RN 12/10/2015 14:23 Pt complains that he is not sleeping well at home and then he went to the dr yesterday and today he was foungd down after drinking 10-12 20 oz beers. No injury noted HPI Mani Garcia is a 50 y.o. male who presents to the Emergency Department with severe alco hol intoxication. He was found down. Initially it is not clear if the patient suffered any injuries as he was found in the prone position and seemed to be complaining of a headache a nd neck pain. However later it seems that the patient is just severely intoxicated. The pa peternt later is more alert and appropriate and has really no complaints. PAST MEDICAL & SURGICAL HISTORY Past Medical History Diagnosis Date Hypertension GERD (gastroesophageal reflux disease) Stroke (HCC) Hyperlipemia Alcoholism (HCC) Elevated PSA Nicotine addiction Alopecia Depression Prostate cancer (HCC) 11/24/2013 Prostate cancer (HCC) 08/01/14 Past Surgical History Procedure Laterality Date Lumbar discectomy 1992 Orthopedic surgery 2007 Right thumb Prostatectomy 08/01/14 CURRENT MEDICATIONS Previous Medications ALPRAZOLAM (XANAX) 0.25 MG TABLET Take 1 tablet by mouth Twice daily as needed for Anx iety. ASPIRIN (ASPIRIN ADULT LOW STRENGTH) 81 MG EC TABLET Take 1 tablet by mouth Daily. LOSARTAN (COZAAR) 50 MG TABLET Take 1 tablet by mouth Daily. NAPROXEN (NAPROSYN) 500 MG TABLET take 1 tablet by mouth twice a day WITH BREAKFAST AND DINNER SERTRALINE (ZOLOFT) 100 MG TABLET One po qd ZOLPIDEM (AMBIEN) 10 MG TABLET Take 1 tablet by mouth nightly as needed for Sleep. 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 Gastrointestinal: Negative for nausea, vomiting, abdominal pain and diarrhea. Genitourinary: Negative for dysuria. Psychiatric/Behavioral: Positive for substance abuse. Negative for depression and suicidal ideas. As in history of present illness. A 10 system review was otherwise negative. PHYSICAL EXAM VITAL SIGNS: (first vital signs): Pulse: 80 Resp: 16 SpO2: 96 % BP: 116/84 mmHg Constitutional: male patient, No acute distress. Intoxicated on arrival. Alert and appr opriate. HEENT: Atraumatic, PERRL, Oropharynx benign. Neck: Supple with full range of motion. No JVD, lymphadenopathy, or meningismus. Respiratory: Good air movement bilaterally. No wheezes, No, rales. Cardiovascular: Normal S1 S2. Abdomen: Soft, nontender. No rebound, guarding, or masses. Bowel tones normal. No pulsa tile masses Back: No CVA tenderness. No midline thoracic or lumbar spinal tenderness. Extremities: Nontender. No edema, no calf asymmetry. Present distal pulses. Skin: Warm, Dry, No rashes. Capillary refill is brisk <3 seconds and shows good perfusion . Neurologic: Alert & oriented. Cranial nerves II-XII intact. Gait and speech are normal. No focal deficits. Psychiatric: Normal mood, affect and judgement. No evidence of suicidal or homicidal idea tion LABS Results for orders placed or performed during [...] CALCIUM 8.2 (L) 8.3-10.5 mg/dL BUN/CREA 13.4 IMAGING STUDIES (X-Rays interpreted by ED Physician) Recent imaging: Ct Head Wo Contrast 12/10/2015 CT HEAD WO CONTRAST. 12/10/2015 3:00 PM HISTORY: Trauma. Alcohol intoxicatio n. Found down. COMPARISON: CT maxillofacial 04/16/2015 TECHNIQUE: Axial images were obtai michael from vertex to skull base without IV contrast. Multiplanar reformatted images created. RADIATION DOSE: DLP 735 mGy-cm FINDINGS: The calvarium and visible facial bones are intact. The extracalvarial soft tissues are unremarkable. Small focus of hypoattenuation seen in th e region of the right basal ganglia, compatible with old lacunar infarct versus prominent pe rivascular space. Mild prominence of CSF space at the medial aspect of the left cerebellum, which may be developmental variant versus small arachnoid cyst. The brain otherwise shows n ormal morphology and chin-white matter differentiation, without evidence of acute intracrani al hemorrhage, mass effect, extra-axial fluid collection, or acute large vessel territory in farct. The ventricles are normal in size. The basal cisterns are patent. The visualized orbi andrea contents are normal. There is extensive mucosal thickening in bilateral maxillary sinuse s. Mucosal thickening also seen in the ethmoid sinuses and sphenoid sinuses. The visualized mastoid air cells and middle ear cavities are normally aerated. IMPRESSION - No evidence o f acute intracranial hemorrhage, mass effect, extra-axial fluid collection, or acute large v essel territory infarct. Small focus of hypoattenuation in the region of the right basal polly glia, as might be seen with old lacunar infarct versus prominent perivascular space. Paranas al sinus disease. Dictated and Signed by: Nabeel Zelaya MD Electronically signed: 12/09 3:[address] Cervical Spine Wo Contrast 12/10/2015 CT CERVICAL SPINE WO CONTRAST 12/10/2015 3:00 PM HISTORY: FALL ALCOHOL INTOXI CATION. Reported history of prostate cancer. COMPARISON: CT head from same date TECHNIQU E: Axial images were obtained from the skull base to the cervicothoracic junction without I V contrast. Multiplanar reformatted images created. RADIATION DOSE: DLP 246 mGy-cm FINDINGS : The structures at the base of the skull are unremarkable. The craniocervical junction is i ntact. Degenerative change is present at the atlantoaxial articulation. There is reversal of the cervical lordosis centered at C6, as might be seen on the basis of degenerative washburn e and/or positioning and/or muscle spasm. There is anterolisthesis of C4 on C5. No evidenc e of acute subluxation. Vertebral body heights are maintained. There is a rounded focus of m ildly increased osseous density centrally within the C4 vertebral body that measures approxi mately 8mm transverse by 7 mm AP by 7 mm craniocaudal, nonspecific. The osseous margins are intact, without evidence of fracture or dislocation. Multiple prominent cervical chain r egion lymph nodes are present, largest of which measures approximately 8mm in short axis.Pre vertebral soft tissues are unremarkable. On axial images: C2-3: The osseous spinal canal a nd neural foramina appear normal. C3-4: Uncinate process spurring and facet degenerative c hange, with moderate right and mild left neural foraminal narrowing. C4-5: Uncinate proces s spurring and facet degenerative change, with moderate-severe right and mild left neurofora vidhya narrowing. C5-6: Degenerative disc disease, uncinate process spurring, and facet deg enerative change, with mild right neural foraminal narrowing. Probable posterior disc bulge , with narrowing of the thecal sac to approximately 10 mm in midline AP diameter. C6-7: Un cinate process spurring. There is degenerative disc disease with disc marginal osteophyte f ormation, and facet degenerative hypertrophy, with moderate left neural foraminal narrowing. Probable posterior disc bulge, with narrowing of the thecal sac to approximately 10 mm in midline AP diameter. C7-T1: Disc marginal osteophyte that extends asymmetrically towards t he right lateral recess. Mild right neural foraminal narrowing. The visualized lung apices are unremarkable. IMPRESSION - Reversal of the cervical lordosis centered at C6, as might be seen on the basis of degenerative change an/or positioning and/or muscle spasm. No CT ev idence of acute fracture or subluxation. Multilevel degenerative disc disease and spondylot ic change, with subsequent multilevel neural foraminal narrowing, ranging up to moderate-sev ere in degree, as detailed above. Appearance of posterior disc bulges at C5-6 and C6-7, with probable narrowing of the thecal sac to an estimated 10 mm in midline AP diameter. Dictate d and Signed by: Nabeel Zelaya MD Electronically signed: 12/10/2015 3:38 PM ED COURSE & MEDICAL DECISION MAKING Pertinent Labs & Imaging studies were reviewed along with EMS notes and long term record s if applicable. (See chart for details) Medications and Allergy list reviewed. Nurses note and old records were reviewed ER course 14:22 - Patient care initiated. After introducing myself to the patient, I performed a car eful history and physical examination. This is a 50-year-old male with known alcoholism who has relapsed. He will require observa tion, imaging of the head and cervical spine to be sure he does not have an underlying fract ure, and then he will require observation in the ER. 20:41. Patient is stable at this time and when he is ready and more awake a not clinically intoxicated, he will be discharged home. Imaging and labs are normal Last Set of Vital Signs: Pulse: 94 Resp: 16 SpO2: 99 % BP: 107/78 mmHg FINAL IMPRESSION 1. Acute alcoholism (HCC) 2. Alcohol intoxication, with delirium (HCC) 3. Cervical stenosis of spine Disposition: Discharge home Condition: Stable Follow-up Information Follow up with Aryan Grossman MD. Specialty: Family Medicine Contact information: [address] [place] [phone] Discharge References/Attachments ALCOHOLISM: GETTING HELP (TONGAN) Portions of this chart may have been created with Dragon voice recognition software. Occasi onal wrong-word or sound-alike substitutions may have occurred due to the inherent avila itations of voice recognition software. Please read the chart carefully and recognize, using context, where these substitutions have occurred. Zeeshan Jane MD 12/10/152041 rwin Brar RN - 12/10/2015 2:22 PM PDTBed: ED07 Expected date: 12/10/15 Expected time: 1417 Means of arrival: ALS Ambulance Comments: Fall with etoh documented in this en counter Miscellaneous Notes ED Triage Notes - ARLETH Ventura - 12/10/2015 2:23 PM PDTPt complains that he is not sleeping well at home and then he went to the dr yesterday and today he was foungd down after drinkin g 10-12 20 oz beers. No injury noted documented in this encounter Plan of Treatment Not on filedocumented as of this encounter Procedures + +--------+ + + + | Procedure Name | Priori | Date/Time | Associated Diagnosis | Comments | | | ty | | | | + +--------+ + + + | BASIC METABOLIC | STAT | 12/10/2015 | | Results for this | | PANEL | | 5:34 PM | | procedure are in the | | | | PDT | | results section. | + +--------+ + + + | DRUGS OF ABUSE, | STAT | 12/10/2015 | | Results for this | | SCREEN, URINE | | 3:08 PM | | procedure are in the | | | | PDT | | results section. | + +--------+ + + + | CT CERVICAL SPINE WO | STAT | 12/10/2015 | | Results for this | | CONTRAST | | 3:00 PM | | procedure are in the | | | | PDT | | results section. | + +--------+ + + + | CT HEAD WO CONTRAST | STAT | 12/10/2015 | | Results for this | | | | 3:00 PM | | procedure are in the | | | | PDT | | results section. | + +--------+ + + + | CBC W/AUTO | STAT | 12/10/2015 | | Results for this | | DIFFERENTIAL | | 2:31 PM | | procedure are in the | | | | PDT | | results section. | + +--------+ + + + | PROTIME INR | STAT | 12/10/2015 | | Results for this | | | | 2:31 PM | | procedure are in the | | | | PDT | | results section. | + +--------+ + + + | ALCOHOL | STAT | 12/10/2015 | | Results for this | | | | 2:31 PM | | procedure are in the | | | | PDT | | results section. | + +--------+ + + + | COMPREHENSIVE | STAT | 12/10/2015 | | Results for this | | METABOLIC PANEL | | 2:31 PM | | procedure are in the | | | | PDT | | results section. | + +--------+ + + + documented in this encounter Results Basic Metabolic Panel (12/10/2015 5:34 PM PDT) + + + + + + | Component | Value | Ref Range | Performed | Pathologist | | | | | At | Signature | + + + + + + | Na | 144 | 136 - 149 | [facility] | [...] + + + + | Cl | 110 (H) | 98 - 109 mmol/L | [...] + + + | Anion Gap | 10 | 3 - 16 mmol/L | [facility] | | | | | | [facility] | | | | | | [facility] | | | | | | [facility] - | | | | | | LABORATORY | | + + + + + + | Glucose | 96 | 70 - 109 mg/dL | [facility] | | | | | | [facility] | | | | | | [facility] | | | | | | [facility] - | | | | | | LABORATORY | | + + + + + + | BUN | 11 | 7 - 18 mg/dL | [facility] | | | | | | [facility] | | | | | | [facility] | | | | | | C[facility] - | | | | | | LABORATORY | | + + + + + + | Creatinine | 0.82 | 0.60 - 1.30 | [facility] | | | | | mg/dL | [facility] | | | | | | MEDICAL | | | | | | CENTER - | | | | | | LABORATORY | | + + + + + + | eGFR, | >60Comment: GLOMERULAR | >=60 | [facility] | | | non- | FILTRATION | mL/min/1.73m2 | [facility] | | | [place] | RATE,ESTIMATED | | MEDICAL | | | | mL/min/1.55p7Xlct than | | CENTER - | | [...] + + + + | Calcium | 8.2 (L) | 8.3 - 10.5 | [facility] | | | | | mg/dL | [facility] | | | | | | MEDICAL | | | | | | CENTER - | | | | | | LABORATORY | | + + + + + + | BUN/Creatin | 13.4 | | [facility] | | | ine Ratio | | | [facility] | | | | | | [facility] [...] [address] | [place] | [phone] | | [facility] | | [address] | | | - LABORATORY | | | | + + + + + Drugs of Abuse, Screen, Urine (12/10/2015 3:08 PM PDT) + + + + + + | Component | Value | Ref Range | Performed | Pathologist | | | | | At | Signature | + + + + + + | Amphetamine | Negative | Negative | [facility] | | | Screen, | | | [facility] | | | Urine | | | MEDICAL | | | | | | CENTER - | | | | | | LABORATORY | | + + + + + + | Barbiturate | Negative | Negative | [facility] | | | s Screen, | | | [facility] | | | Urine | | | MEDICAL | | | | | | CENTER - | | | | | | LABORATORY | | + + + + + + | Benzodiazep | Negative | Negative | [facility] | | | mik | | | [facility] | | | Screen, | | | MEDICAL | | | Urine | | | CENTER - | | | | | | LABORATORY | | + + + + + + | Cannabinoid | Negative | Negative | [facility] | | | s Screen, | | | [facility] | | | Urine | | | MEDICAL | | | | | | CENTER - | | | | | | LABORATORY | | + + + + + + | Cocaine | Negative | Negative | [facility] | | | Screen, | | | [facility] | | | Urine | | | MEDICAL | | | | | | CENTER - | | | | | | LABORATORY | | + + + + + + | Methadone | Negative | Negative | [facility] | | | Screen, | | | [facility] | | | Urine | | | MEDICAL | | | | | | CENTER - | | | | | | LABORATORY | | + + + + + + | Opiates | Negative | Negative | [facility] | | | Screen, | | | [facility] | | | Urine | | | MEDICAL | | | | | | CENTER - | | | | | | LABORATORY | | + + + + + + + + | Specimen | + + | Urine - Urine | | specimen obtained by | | clean catch | | procedure (specimen) | + + + + + + + | Performing | Address | City/State/Zipcode | Phone Number | | Organization | | | | + + + + + | [facility] | [address] | [place] | [phone] | | [facility] | | [address] | | | - LABORATORY | | | | + + + + + CT Cervical Spine wo Contrast (12/10/2015 3:00 PM PDT) + + | Specimen | + + | | + + + + + | Narrative | Performed At | + + + | CT CERVICAL SPINE WO CONTRAST 12/10/2015 3:00 PM HISTORY: | [facility] | | FALL ALCOHOL INTOXICATION. Reported history of prostate cancer. | | | COMPARISON: CT head from same date TECHNIQUE: Axial images | | | were obtained from the skull base to the cervicothoracic junction | | | without IV contrast. Multiplanar reformatted images created. | | | RADIATION DOSE: DLP 246 mGy-cm FINDINGS: The structures at the | | | base of the skull are unremarkable. The craniocervical junction is | | | intact. Degenerative change is present at the atlantoaxial | | | articulation. There is reversal of the cervical lordosis centered | | | at C6, as might be seen on the basis of degenerative change and/or | | | positioning and/or muscle spasm. There is anterolisthesis of C4 on | | | C5. No evidence of acute subluxation. Vertebral body heights are | | | maintained. There is a rounded focus of mildly increased osseous | | | density centrally within the C4 vertebral body that measures | | | approximately 8mm transverse by 7 mm AP by 7 mm craniocaudal, | | | nonspecific. The osseous margins are intact, without evidence of | | | fracture or dislocation. Multiple prominent cervical chain | | | region lymph nodes are present, largest of which measures | | | approximately 8mm in short axis.Prevertebral soft tissues are | | | unremarkable. On axial images: C2-3: The osseous spinal canal | | | and neural foramina appear normal. C3-4: Uncinate process | | | spurring and facet degenerative change, with moderate right and mild | | | left neural foraminal narrowing. C4-5: Uncinate process spurring | | | and facet degenerative change, with moderate-severe right and mild | | | left neuroforaminal narrowing. C5-6: Degenerative disc disease, | | | uncinate process spurring, and facet degenerative change, with mild | | | right neural foraminal narrowing. Probable posterior disc bulge, | | | with narrowing of the thecal sac to approximately 10 mm in midline AP | | | diameter. C6-7: Uncinate process spurring. There is | | | degenerative disc disease with disc marginal osteophyte formation, | | | and facet degenerative hypertrophy, with moderate left neural | | | foraminal narrowing. Probable posterior disc bulge, with narrowing | | | of the thecal sac to approximately 10 mm in midline AP diameter. | | | C7-T1: Disc marginal osteophyte that extends asymmetrically towards | | | the right lateral recess. Mild right neural foraminal narrowing. | | | The visualized lung apices are unremarkable. IMPRESSION - | | | Reversal of the cervical lordosis centered at C6, as might be seen on | | | the basis of degenerative change an/or positioning and/or muscle | | | spasm. No CT evidence of acute fracture or subluxation. | | | Multilevel degenerative disc disease and spondylotic change, with | | | subsequent multilevel neural foraminal narrowing, ranging up to | | | moderate-severe in degree, as detailed above. Appearance of | | | posterior disc bulges at C5-6 and C6-7, with probable narrowing of | | | the thecal sac to an estimated 10 mm in midline AP diameter. | | | Dictated and Signed by: Nabeel Zelaya MD Electronically signed: | | | 12/10/2015 3:38 PM | | + + + + + | Procedure Note | + + | Frank, Rad Results In - 12/10/2015 3:[address] CERVICAL SPINE WO CONTRAST | | 12/10/2015 3:00 PMHISTORY: FALLALCOHOL INTOXICATION. Reported history of prostate | | cancer.COMPARISON: CT head from same dateTECHNIQUE: Axial images were obtained from | | the skull base to thecervicothoracic junction without IV contrast. Multiplanar | | reformatted imagescreated.RADIATION DOSE: DLP 246 mGy-cmFINDINGS:The structures at the | | base of the skull are unremarkable.The craniocervical junction is intact. Degenerative | | change is present at the atlantoaxial articulation.There is reversal of the cervical | | lordosis centered at C6, as might be seen onthe basis of degenerative change and/or | | positioning and/or muscle spasm. Thereis anterolisthesis of C4 on C5. No evidence of | | acute subluxation.Vertebral body heights are maintained.There is a rounded focus of | | mildly increased osseous density centrally withinthe C4 vertebral body that measures | | approximately 8mm transverse by 7 mm AP by 7mm craniocaudal, nonspecific.The osseous | | margins are intact, without evidence of fracture or dislocation. Multiple prominent | | cervical chain region lymph nodes are present, largest ofwhich measures approximately | | 8mm in short axis.Prevertebral soft tissues areunremarkable.On axial images:C2-3: The | | osseous spinal canal and neural foramina appear normal.C3-4: Uncinate process spurring | | and facet degenerative change, with moderateright and mild left neural foraminal | | narrowing.C4-5: Uncinate process spurring and facet degenerative change, | | withmoderate-severe right and mild left neuroforaminal narrowing.C5-6: Degenerative | | disc disease, uncinate process spurring, and facetdegenerative change, with mild right | | neural foraminal narrowing. Probableposterior disc bulge, with narrowing of the thecal | | sac to approximately 10 mm inmidline AP diameter.C6-7: Uncinate process spurring. | | There is degenerative disc disease with discmarginal osteophyte formation, and facet | | degenerative hypertrophy, with moderateleft neural foraminal narrowing. Probable | | posterior disc bulge, with narrowingof the thecal sac to approximately 10 mm in midline | | AP diameter.C7-T1: Disc marginal osteophyte that extends asymmetrically towards the | | rightlateral recess. Mild right neural foraminal narrowing.The visualized lung apices | | are unremarkable.IMPRESSION -Reversal of the cervical lordosis centered at C6, as might | | be seen on the basisof degenerative change an/or positioning and/or muscle spasm.No CT | | evidence of acute fracture or subluxation.Multilevel degenerative disc disease and | | spondylotic change, with subsequentmultilevel neural foraminal narrowing, ranging up to | | moderate-severe in degree,as detailed above.Appearance of posterior disc bulges at C5-6 | | and C6-7, with probable narrowing ofthe thecal sac to an estimated 10 mm in midline AP | | diameter.Dictated and Signed by: Nabeel Zelaya MD Electronically signed: 12/10/2015 | | 3:38 PM | | | |C4-5: Uncinate process spurring and facet degenerative change, with | |moderate-severe right and mild left neuroforaminal narrowing. | | | |C5-6: Degenerative disc disease, uncinate process spurring, and facet | |degenerative change, with mild right neural foraminal narrowing. Probable | |posterior disc bulge, with narrowing of the thecal sac to approximately 10 mm in | |midline AP diameter. | | | |C6-7: Uncinate process spurring. There is degenerative disc disease with disc | |marginal osteophyte formation, and facet degenerative hypertrophy, with moderate | |left neural foraminal narrowing. Probable posterior disc bulge, with narrowing | |of the thecal sac to approximately 10 mm in midline AP diameter. | | | |C7-T1: Disc marginal osteophyte that extends asymmetrically towards the right | |lateral recess. Mild right neural foraminal narrowing. | | | |The visualized lung apices are unremarkable. | | | | | |IMPRESSION - | |Reversal of the cervical lordosis centered at C6, as might be seen on the basis | |of degenerative change an/or positioning and/or muscle spasm. | |No CT evidence of acute fracture or subluxation. | | | |Multilevel degenerative disc disease and spondylotic change, with subsequent | |multilevel neural foraminal narrowing, ranging up to moderate-severe in degree, | |as detailed above. | |Appearance of posterior disc bulges at C5-6 and C6-7, with probable narrowing of | |the thecal sac to an estimated 10 mm in midline AP diameter. | | | |Dictated and Signed by: Nabeel Zelaya MD | | Electronically signed: 12/10/2015 3:38 PM | + + + +---------+ + + | Performing | Address | City/State/Zipcode | Phone Number | | Organization | | | | + +---------+ + + | [facility] | | | | + +---------+ + + CT Head wo Contrast (12/10/2015 3:00 PM PDT) + + | Specimen | + + | | + + + + + | Narrative | Performed At | + + + | CT HEAD WO CONTRAST. 12/10/2015 3:00 PM HISTORY: Trauma. | [facility] | | Alcohol intoxication. Found down. COMPARISON: CT | | | maxillofacial 04/16/2015 TECHNIQUE: Axial images were obtained from | | | vertex to skull base without IV contrast. Multiplanar reformatted | | | images created. RADIATION DOSE: DLP 735 mGy-cm FINDINGS: The | | | calvarium and visible facial bones are intact. The extracalvarial | | | soft tissues are unremarkable. Small focus of hypoattenuation seen in | | | the region of the right basal ganglia, compatible with old lacunar | | | infarct versus prominent perivascular space. Mild prominence of CSF | | | space at the medial aspect of the left cerebellum, which may be | | | developmental variant versus small arachnoid cyst. The brain | | | otherwise shows normal morphology and chin-white matter | | | differentiation, without evidence of acute intracranial hemorrhage, | | | mass effect, extra-axial fluid collection, or acute large vessel | | | territory infarct. The ventricles are normal in size. The basal | | | cisterns are patent. The visualized orbital contents are normal. | | | There is extensive mucosal thickening in bilateral maxillary sinuses. | | | Mucosal thickening also seen in the ethmoid sinuses and sphenoid | | | sinuses. The visualized mastoid air cells and middle ear cavities are | | | normally aerated. IMPRESSION - No evidence of acute intracranial | | | hemorrhage, mass effect, extra-axial fluid collection, or acute | | | large vessel territory infarct. Small focus of hypoattenuation in the | | | region of the right basal ganglia, as might be seen with old lacunar | | | infarct versus prominent perivascular space. Paranasal sinus | | | disease. Dictated and Signed by: Nabeel Zelaya MD | | | Electronically signed: 12/10/2015 3:27 PM | | + + + + + | Procedure Note | + + | Frank, Rad Results In - 12/10/2015 3:[address] HEAD WO CONTRAST. 12/10/2015 3:00 PM | | | | HISTORY: Trauma. Alcohol intoxication. Found down. | | | | COMPARISON: CT maxillofacial 04/16/2015 | | | | TECHNIQUE: Axial images were obtained from vertex to skull base without IV | | contrast. Multiplanar reformatted images created. | | RADIATION DOSE: DLP 735 mGy-cm | | | | FINDINGS: | | The calvarium and visible facial bones are intact. | | The extracalvarial soft tissues are unremarkable. | | Small focus of hypoattenuation seen in the region of the right basal ganglia, | | compatible with old lacunar infarct versus prominent perivascular space. Mild | | prominence of CSF space at the medial aspect of the left cerebellum, which may | | be developmental variant versus small arachnoid cyst. | | The brain otherwise shows normal morphology and chin-white matter | | differentiation, without evidence of acute intracranial hemorrhage, mass effect, | | extra-axial fluid collection, or acute large vessel territory infarct. | | The ventricles are normal in size. The basal cisterns are patent. | | The visualized orbital contents are normal. | | There is extensive mucosal thickening in bilateral maxillary sinuses. Mucosal | | thickening also seen in the ethmoid sinuses and sphenoid sinuses. | | The visualized mastoid air cells and middle ear cavities are normally aerated. | | | | IMPRESSION - | | No evidence of acute intracranial hemorrhage, mass effect, extra-axial fluid | | collection, or acute large vessel territory infarct. | | Small focus of hypoattenuation in the region of the right basal ganglia, as | | might be seen with old lacunar infarct versus prominent perivascular space. | | Paranasal sinus disease. | | | | Dictated and Signed by: Nabeel Zelaya MD | | Electronically signed: 12/10/2015 3:27 PM | + + + +---------+ + + | Performing | Address | City/State/Zipcode | Phone Number | | Organization | | | | + +---------+ + + | [facility] | | | | + +---------+ + + Protime INR (12/10/2015 2:31 PM PDT) + + + + + + | Component | Value | Ref Range | Performed | Pathologist | | | | | At | Signature | + + + + + + | Prothrombin | 12.9 | 11.3 - 13.9 | [facility] | | | Time | | seconds | [facility] | | | | | | MEDICAL | | | | | | CENTER - | | | | | | LABORATORY | | + + + + + + | INR | 0.92Comment: Usual Oral | 0.90 - 1.10 | [facility] | | | | Anticoagulation Range: | | [facility] | | | | 2.0 - 3.0High | | MEDICAL | | | | Level Oral | | CENTER - | | | | Anticoagulation Range: | | LABORATORY | | | | 2.5 - 3.5 | | | | + + + + + + + + | Specimen | + + | Blood | + + + + + + + | Performing | Address | City/State/Zipcode | Phone Number | | Organization | | | | + + + + + | [facility] | [address] | [place] | [phone] | | [facility] | | [address] | | | - LABORATORY | | | | + + + + + Ethanol (12/10/2015 2:31 PM PDT) + + + + + + | Component | Value | Ref Range | Performed | Pathologist | | | | | At | Signature | + + + + + + | ALCOHOL, | 406 (HH)Comment: | <400 mg/dL | [facility] | | | SERUM/PLASM | Critical Result called | | [facility] | | | A | to and read back by Ethel | | MEDICAL | | | | Jimenez/ARLETH on 12/10/2015 | | CENTER - | | | | at 15:03 by Weston | | LABORATORY | | | | Froylan. | | | | + + + + + + + + | Specimen | + + | Blood | + + + + + + + | Performing | Address | City/State/Zipcode | Phone Number | | Organization | | | | + + + + + | [facility] | [address] | [place] | [phone] | | [facility] | | [address] | | | - LABORATORY | | | | + + + + + Comprehensive Metabolic Panel (12/10/2015 2:31 PM PDT) + + + + + + | Component | Value | Ref Range | Performed | Pathologist | | | | | At | Signature | + + + + + + | Na | 142 | 136 - 149 | [facility] | | | | | mmol/L | [facility] | | | | | | MEDICAL | | | | | | CENTER - | | | | | | LABORATORY | | + + + + + + | K | 6.1 ()Comment: | 3.5 - 5.1 | [facility] | | | | ALKALINE PHOSPHATASE, | mmol/L | [facility] | | | | AMYLASE, AMMONIA, CPK, | | MEDICAL | | | | DIRECT BILIRUBIN, | | CENTER - | | | | INORGANIC PHOSPHORUS, | | LABORATORY | | | | IRON, K+, LACTIC ACID, | | | | | | LDH, MAGNESIUM, | | | | | | SGOT/AST, SGPT/ALT, | | | | | | TOTAL BILIRUBIN, URIC | | | | | | ACID, AND GAMMA GT may | | | | | | be adversely affected by | | | | | | 4+ hemolysis. Critical | | | | | | Result called to and | | | | | | read back by Ethel | | | | | | Jimenez/ARLETH on 12/10/2015 | | | | | | at 15:03 by Weston | | | | | | Froylan. | | | | + + + + + + | Cl | 107 | 98 - 109 mmol/L | [facility] | | | | | | [facility] | | | | | | MEDICAL | | | | | | CENTER - | | | | | | LABORATORY | | + + + + + + | CO2 | 27 | 24 - 31 mmol/L | [facility] | | | | | | [facility] [...] + + + + | Glucose | 90 | 70 - 109 mg/dL | [facility] [...] | 1.00 | 0.60 - 1.30 | [facility] | [...] | mL/min/1.73m2 | [facility] | | | [place]ian | RATE,ESTIMATED | | MEDICAL | | | | mL/min/1.24d8Xbps than | | CENTER - | | [...] + + + + | Calcium | 8.5 | 8.3 - 10.5 | [facility] | | | | | mg/dL | [facility] | | | | | | MEDICAL | | | | | | CENTER - | | | | | | LABORATORY | | + + + + + + | Albumin | 3.7 | 3.2 - 5.0 g/dL | [facility] | | | | | | [facility] | | | | | | [facility] | | | | | | CENTER - | | | | | | LABORATORY | | + + + + + + | Bilirubin | 1.4Comment: ALKALINE | 0.1 - 1.5 mg/dL | [facility] | | | Total | PHOSPHATASE, AMYLASE, | | [facility] | | | | AMMONIA, CPK, DIRECT | | MEDICAL | | | | BILIRUBIN, INORGANIC | | CENTER - | | | | PHOSPHORUS, IRON, K+, | | LABORATORY | | | | LACTIC ACID, LDH, | | | | | | MAGNESIUM, SGOT/AST, | | | | | | SGPT/ALT, TOTAL | | | | | | BILIRUBIN, URIC ACID, | | | | | | AND GAMMA GT may be | | | | | | adversely affected by 4+ | | | | | | hemolysis. | | | | + + + + + + | Total | 6.6 | 6.0 - 7.8 g/dL | [facility] | | | Protein | | | [facility] | | | | | | MEDICAL | | | | | | CENTER - | | | | | | LABORATORY | | + + + + + + | AST | 49 (H)Comment: ALKALINE | 10 - 42 U/L | [facility] | | | | PHOSPHATASE, AMYLASE, | | [facility] | | | | AMMONIA, CPK, DIRECT | | MEDICAL | | | | BILIRUBIN, INORGANIC | | CENTER - | | | | PHOSPHORUS, IRON, K+, | | LABORATORY | | | | LACTIC ACID, LDH, | | | | | | MAGNESIUM, SGOT/AST, | | | | | | SGPT/ALT, TOTAL | | | | | | BILIRUBIN, URIC ACID, | | | | | | AND GAMMA GT may be | | | | | | adversely affected by 4+ | | | | | | hemolysis. | | | | + + + + + + | ALT | 26Comment: ALKALINE | 6 - 45 U/L | [facility] | | | | PHOSPHATASE, AMYLASE, | | [facility] | | | | AMMONIA, CPK, DIRECT | | MEDICAL | | | | BILIRUBIN, INORGANIC | | CENTER - | | | | PHOSPHORUS, IRON, K+, | | LABORATORY | | | | LACTIC ACID, LDH, | | | | | | MAGNESIUM, SGOT/AST, | | | | | | SGPT/ALT, TOTAL | | | | | | BILIRUBIN, URIC ACID, | | | | | | AND GAMMA GT may be | | | | | | adversely affected by 4+ | | | | | | hemolysis. | | | | + + + + + + | Alkaline | 84 | 40 - 110 U/L | [facility] [...] + + | Albumin/Nancy | 1.3 | | [facility] | | | bulin Ratio | | | [facility] | | | | | | MEDICAL | | | | | | CENTER - | | | | | | LABORATORY | | + + + + + + | BUN/Creatin | 13.0 | | [facility] | | | ine [...] Performed At | + + + | There is no significant interference from 1+ lipemia. | [facility] | | | [facility] | | | - LABORATORY | + + + + + + + + | Performing | Address | City/State/Zipcode | Phone Number | | Organization | | | | + + + + + | [facility] | [address] | [place] | [phone] | | [facility] | | [address] | | | - LABORATORY | | | | + + + + + CBC w/ Auto Differential (12/10/2015 2:31 PM PDT) + + + + + + | Component | Value | Ref Range | Performed | Pathologist | | | | | At | Signature | + + + + + + | White Blood | 6.7 | 4.0 - 11.0 K/uL | [facility] | | | Cells | | | [facility] | | | | | | MEDICAL | | | | | | CENTER - | | | | | | LABORATORY | | + + + + + + | Red Blood | 5.36 | 4.30 - 5.70 | [facility] | [...] + + + + | Hematocrit | 51.8 (H) | 40.0 - 51.0 % | [facility] | | | | | | [facility] | | | | | | MEDICAL | | | | | | CENTER - | | | | | | LABORATORY | | + + + + + + | MCV | 96.6 | 83.0 - 101.0 fL | [facility] | | | | | | [facility] | | [facility] | | | MEDICAL | | | | | | CENTER - | | | | | | LABORATORY | | + + + + + + | MCH | 32.0 | 28.0 - 35.0 pg | [facility] | | | | | | [facility] | | | | | | MEDICAL | | | | | | CENTER - | | | | | | LABORATORY | | + + + + + + | MCHC | 33.1 | 32.0 - 36.0 | [facility] | | | | | g/dL | [facility] | | | | | | MEDICAL | | | | | | CENTER - | | | | | | LABORATORY | | + + + + + + | RDW-CV | 13.1 | <15.0 % | [facility] | | | | | [facility] | | | | | | MEDICAL | | | | | | CENTER - | | | | | | LABORATORY | | + + + + + + | Platelet | 374 | 140 - 440 K/uL | [facility] [...] + + + + | % | 48.0 | 45.0 - 82.0 % | [facility] | | | Neutrophils | | | [facility] | | | | | | MEDICAL | | | | | | CENTER - | | | | | | LABORATORY | | + + + + + + | % | 40.5 | 20.0 - 45.0 % | [facility] | | | Lymphocytes | | | [facility] | | | | | | MEDICAL | | | | | | CENTER - | | | | | | LABORATORY | | + + + + + + | % Monocytes | 8.6 | 4.0 - 12.0 % | [facility] | | | | | | [facility] | | | | | | MEDICAL | | | | | | CENTER - | | | | | | LABORATORY | | + + + + + + | % | 2.3 | 0.0 - 5.0 % | [facility] [...] + + + + | Absolute | 3.20 | 1.80 - 8.50 | [facility] | | | Neutrophils | | K/uL | [facility] | | | | | | MEDICAL | | | | | | CENTER - | | | | | | LABORATORY | | + + + + + + | Absolute | 2.70 | 0.60 - 3.20 | [facility] | | | Lymphocytes | | K/uL | [facility] | | | | | | MEDICAL | | | | | | CENTER - | | | | | | LABORATORY | | + + + + + + | Absolute | 0.[address] | [place] | [phone] | | [facility] | | [address] | | | - LABORATORY | | | | + + + + + documented in this encounter Visit Diagnoses + + | Diagnosis | + + | Acute alcoholism (HCC) - Primary Acute alcoholic intoxication in alcoholism, | | unspecified | + + | Alcohol intoxication, with delirium (HCC) | + + | Cervical stenosis of spine Spinal stenosis in cervical region | + + documented in this encounter Administered Medications + +--------+ +------+------+------+ | Medication Order | MAR | Action | Dose | Rate | Site | | | Action | Date | | | | + +--------+ +------+------+------+ | haloperidol lactate (HALDOL) | Given | 12/10/19 | 5 mg | | | | injection 5 mg 5 mg, | | 16 5:33 | | | | | Intravenous, ONCE, 12/10/15 at | | PM PDT | | | | | 1730, For 1 dose | | | | | | + +--------+ +------+------+------+ +---+---+ | | | +---+---+ + +---------+ +--------+-------+---+ | sodium chloride 0.9% (NS) bolus | New Bag | 12/10/19 | 1,000 | 4000 | | | 1,000 mL 1,000 mL, Intravenous, | | 16 2:32 | mLs | mL/hr | | | Administer over 15 Minutes, | | PM PDT | | | | | ONCE, Tue12/10/15 at 1430, For 1 | | | | | | | dose | | | | | | + +---------+ +--------+-------+---+ +---+---+ | | | +---+---+ + +---------+ +--------+-------+---+ | sodium chloride 0.9% (NS) bolus | New Bag | 12/10/19 | 1,000 | 4000 | | | 1,000 mL 1,000 mL, Intravenous, | | 16 4:03 | mLs | mL/hr | | | Administer over 15 Minutes, | | PM PDT | | | | | ONCE, Tue12/10/15 at 1515, For 1 | | | | | | | dose | | | | | | + +---------+ +--------+-------+---+ +---+---+ | | | +---+---+ + + + +---------+-------+---+ | sodium chloride 0.9% (NS) | Restarte | 12/10/19 | 100 mLs | 100 | | | infusion at 100 mL/hr, | d | 16 11:58 | | mL/hr | | | Intravenous, CONTINUOUS, Starting | | PM PDT | | | | | 12/10/15 at 2045 | | | | | | + + + +---------+-------+---+ +---------+ +--------+-------+---+ | New Bag | 12/10/19 | 1,000 | 100 | | | | 16 9:23 | mLs | mL/hr | | | | PM PDT | | | | +---------+ +--------+-------+---+ +---+---+ | | | +---+---+ documented in this encounter
--- OUTSIDE RECORDS SUMMARY | ~2020-06-06 | XMS | Encounter Summary ---
Demographics + + + | Address | [address] | | | [facility] [place] [address] | + + + | Home Phone [...] | Author | [facility] | + + + | Organization | [facility] | + + + | Address | Unknown | + + + | Phone | Unavailable | + + + Support + + +---------+ + | Name | Relationship | Address | Phone | + + +---------+ + | Servando Boyer | ECON | Unknown | | + + +---------+ + Care Team Providers + +------+ + | Care Girl Friday Name | Role | Phone | + +------+ + | Aryan Grossman MD | PCP | | + +------+ + Reason for Visit + + + | Reason | Comments | + + + | Refill Request | | + + + Encounter Details +--------+--------+ + + + | Date | Type | Department | Care Team | Description | +--------+--------+ + + + | 04/04/ | Refill | [facility] at [facility] | Simran Osman, | Refill Request | | 2018 | | [address] | ACNP [address] [facility] | | | | | [facility] | [facility] | | | | | and Healing, | [place], [place] | | | | | Building | [address] | | | | | Floor [place], [place] | [phone] | | | | | [address] | | | | | | [phone] | | | +--------+--------+ + + + [...]
--- OUTSIDE RECORDS SUMMARY | ~2020-06-06 | XMS | Encounter Summary ---
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 | | [phone] | | | | | Muscle | | | | | | | wasting and | | | | | | | atrophy, | | | | | | | NEC, unsp | | | | | | | thigh | | | | | | | Procedures | | | | | | | [place] [facility] | | | | | | [...] | | | | | | [place] | | | | | | | [...] + + + + | 05/08/ | Anesthesia | [facility] | Javier James | | | 2019 | Event | [facility] | MD Alfonzo [address] | | | | | [address] | [facility] | | | | | RONNY Torres | [place] [address] | | | | | [address] | [phone] | | | | | [phone] | | | +--------+ + + + + Anesthesia Record + + + + + | Procedure Name | Responsible | Anesthesia Start | Anesthesia Stop Time | | | Anesthesiologist | Time | | + + + + + | Right L2-L3, L3-L4, | Javier James, | 05/08/19 0950 | 05/08/19 1307 | | L4-L5 Laminectomy | MD | | | | with Discectomy at | | | | | L2-L3 (Right Back) | | | | + + + + + +----+---+ + + | Da | T | Event | Comment | | te | i | | | | | m | | | | | e | | | +----+---+ + + | 08 | 0 | | | | /1 | 9 | | | | 3/ | 5 | | | | 20 | 0 | | | | 19 | | | | +----+---+ + + | | 0 | An Checkout | Pre-use anesthesia machine/equipment checkout. | | | 9 | | | | | 5 | | | | | 0 | | | +----+---+ + + | | 0 | An Start | Reassessment prior to anesthesia induction/procedure. | | | 9 | | | | | 5 | | | | | 0 | | | +----+---+ + + | | 0 | Beta | | | | 9 | Deepak | | | | 5 | Given | | | | 0 | | | +----+---+ + + | | 0 | Antibiotic | | | | 9 | Given | | | | 5 | | | | | 5 | | | +----+---+ + + | | 0 | Preoxygenat | | | | 9 | ed | | | | 5 | | | | | 5 | | | +----+---+ + + | | 0 | An | | | | 9 | Induction | | | | 5 | | | | | 7 | | | +----+---+ + + | | 0 | An | | | | 9 | Intubation | | | | 5 | | | | | 9 | | | +----+---+ + + | | 1 | Block Start | | | | 0 | | | | | 0 | | | | | 7 | | | +----+---+ + + | | 1 | AN Block | | | | 0 | End | | | | 1 | | | | | 1 | | | +----+---+ + + | | 1 | First | | | | 0 | Inc/Proc St | | | | 2 | | | | | 0 | | | +----+---+ + + | | 1 | Pre-Procedu | | | | 0 | ral Timeout | | | | 2 | Completed | | | | 1 | | | +----+---+ + + | | 1 | [place] | | | | 0 | 43-degrees | | | | 2 | | | | | 3 | | | +----+---+ + + | | 1 | Quick Note | Request by neuromonitoring tech to switch to TIVA to improve | | | 0 | | signals | | | 5 | | | | | 0 | | | +----+---+ + + | | 1 | Quick Note | Neuro composite technician says signals have improved | | | 1 | | | | | 3 | | | | | 0 | | | +----+---+ + + | | 1 | [place] off | | | | 2 | | | | | 4 | | | | | 7 | | | +----+---+ + + | | 1 | Breathing | | | | 2 | Spontaneous | | | | 4 | ly | | | | 7 | | | +----+---+ + + | | 1 | Oropharynx | | | | 2 | Suctioned | | | | 5 | | | | | 7 | | | +----+---+ + + | | 1 | Moving | | | | 2 | Purposefull | | | | 5 | y | | | | 7 | | | +----+---+ + + | | 1 | AN No | TOF 4/4 with sustained tetanus. | | | 3 | Residual | | | | 0 | NMB | | | | 0 | | | +----+---+ + + | | 1 | Extubated | | | | 3 | Awake | | | | 0 | | | | | 2 | | | +----+---+ + + | | 1 | an stop | | | | 3 | data | | | | 0 | | | | | 2 | | | +----+---+ + + | | 1 | An Stop | Patient handed off to recovery nurse. | | | 0 | | | | | 7 | | | +----+---+ + + +------+ | Meds | +------+ + + + | Name | Total | + + + | midazolam | 2 mg | + + + | fentaNYL injection (2 mL) | 100 mcg | + + + | HYDROmorphone | 1 mg | + + + | lidocaine 2% (PF) | 100 mg | + + + | lidocaine 2% | 258.67 mg | + + + | propofol (DIPRIVAN) injection | 250 mg | | (bolus) (20 mL) | | + + + | propofol | 1,451.74 mg | + + + | ketamine | 75 mg | + + + | succinylcholine | 100 mg | + + + | dexamethasone | 10 mg | + + + | ondansetron | 4 mg | + + + | magnesium sulfate | 2 g | + + + | dexmedetomidine (Bolus) | 50 mcg | + + + | dexmedetomidine (Infusion) | 34.19 mcg | + + + | ePHEDrine | 35 mg | + + + | phenylephrine (Injection) | 500 mcg | + + + | vancomycin 1 g in sodium chloride | 1 g | | 0.9% 250 mL IVPB | | + + + | ceFAZolin (ANCEF, KEFZOL) 100 | 2 g | | mg/mL IV syringe 2 g | | + + + | bupivacaine 0.25% + epi 1:200k | 40 mL | + + + | Phenylephrine 10mg/mL VIAL | 1,159.02 mcg | + + + | lactated ringers (LR) infusion | 0 mL | + + + | lactated ringers (LR) infusion | 1,800 mL | + + + + + [...] +--------+ + + + | Periph | 05/08/19; 825; Right; Mid; | 05/08/19825 by | 05/11/19 100 by | | eral | Forearm; kczd-pra-xvqobr catheter | Teressa Rubalcava RN | Scott Mcneal RN | | IV | system; 18 gauge, 1 1/2 in | | | | | length; distraction, topical | | | | | anesthetic spray applied, | | | | | tolerated well; no longer | | | | | indicated, catheter/device | | | | | intact; 05/11/19; 1009 | | | +--------+ + + + | Airway | Placement Date: 05/08/19; | 05/08/19 0959 by Javier | 05/08/19 1302 by Tor | | | Placement Time: 0959 (created via | Alfonzo James MD | Alfonzo James MD | | | procedure documentation); Mask | | | | | Ventilation: EZ; Airway Grade: 1; | | | | | Successful Technique: video | | | | | scope; Laryngoscope Blade Size: | | | | | 3; Attempts: 1; Airway Type: | | | | | endotracheal; Size: 7.5; Airway | | | | | Tube Secured At: 23; Trauma: | | | | | none; Other Equipment: stylette; | | | | | Placement Check: exhaled CO2 | | | | | detection device; Removal Date: | | | | | 05/08/19; Removal Time: 130 | | | +--------+ + + + | Wound | 05/08/19; 1042; Incision; | 05/08/19 1042 by | 05/11/19 1009 by | | | Bilateral; back; Healing; | Jabier Ward RN | Scott Mcneal RN | | | 05/11/19; 1009 | | | +--------+ + + + documented in this encounter Social History + + + +--------+ + [...] encounter OR Notes Anesthesia Postprocedure Evaluation - Javier James MD - 05/08/2019 3:23 PM PDTForm atting of this note might be different from the original. ANESTHESIA POSTANESTHESIA EVALUATION Mani Garcia 53 y.o. male 1965 [id number] Procedure(s) Right L2-L3, L3-L4, L4-L5 Laminectomy with Discectomy at L2-L3 (Right Back) Cooperates? Yes Mental Status Performs simple tasks. Respiratory Satisfactory - Airway patent (self maintained). Cardiovascular Satisfactory - Blood pressure and heart rate acceptable Temperature Satisfactory Pain Satisfactory N/V Control Satisfactory Hydration Satisfactory - No signs of dehydration Vitals Value Taken Time Temp 37.1 C (98.8 F) 05/08/2019 13:04 Pulse 70 05/08/2019 14:26 Resp 12 05/08/2019 14:26 BP 107/74 05/08/2019 14:25 Arterial Line BP Arterial Line BP 2 SpO2 100 % 05/08/2019 14:26 Vitals shown include unvalidated device data. Electronically signed by Javier James MD 05/08/2019 15:23 [facility] nesthesia Procedure Notes - Javier James MD - 05/08/2019 11: 34 AM PDTAssociated Order(s): Nerve BlockPerineural Procedure Note 05/08/2019 10:10 LDA Nerve Block Type: Erector spinae plane. Laterality: bilateral Continuous block with catheter: No Provider requested procedure: Dr. Hilliard Indication: postoperative analgesia Preprocedure check: patient identified, procedure and rescue equipment checked, preevaluati on including airway assessment complete, risks/benefits discussed, consent obtained, timeout performed, reassessment prior to procedure, monitors applied and supplemental oxygen applie d Patient position: prone Preparation: chlorhexidine/isopropyl alcohol Technique: ultrasound Radiology image stored in patient's chart: ultrasound Needle: echogenic, stimulating, insulated and short-bevel Needle size: 22 g Needle length: 4 in Medication administered through: needle Total volume of local anesthetic solution administered: 40 mL Attempts: 1 Ease of procedure: easy Comments: Patient under general anesthesia. Left erector spinae block: Chloraprep to mid lower back. . Ultrasound used to identify the transverse process of L vertebral body at about L 3-4. Under continuous ultrasound guidanc e the Stimuplex needle was advanced to the left transverse process. Local anesthetic was inj ected in 5 ml increments in the erector spinae plane with intermittent negative aspiration. Ultrasound was used to visualize the spread of the anesthetic in close proximity to the ner ves being blocked with needle tip visualized throughout. The anatomy appeared normal, and t here were no apparent abnormal pathological findings. A permanent ultrasound image was saved in the patient's record. Right erector spinae block: Chloraprep to mid lower back. . Ultrasound used to identify th e transverse process of right vertebral body at about L 3-4. Under continuous ultrasound g uidance the Stimuplex needle was advanced to the right transverse process. Local anesthetic was injected in 5 ml increments in the erector spinae plane with intermittent negative aspir ation. Ultrasound was used to visualize the spread of the anesthetic in close proximity to the nerves being blocked with needle tip visualized throughout. The anatomy appeared normal , and there were no apparent abnormal pathological findings. A permanent ultrasound image wa s saved in the patient's record. Please see anesthesia record or flowsheet for vital sign documentation and see anesthesia r ecord or MAR for additional medication documentation. nesthesia Proced ure Notes - Javier James MD - 05/08/2019 10:23 AM PDTAssociated Order(s): Anesthesia Airway NoteAnesthesia Airway Placement 05/08/2019 9:59 Preprocedure check: patient identified, oxygen, airway assessed, patient reassessment prior to induction, airway equipment checked and suction Rapid Sequence Induction: no Mask ventilation: easy Successful technique: videoscope Laryngoscope blade size: 3 Airway grade: 1 (Full view of glottis) Other equipment: stylette Attempts: 1 Airway type: endotracheal Size: 7.5 Cuffed: cuffed Route, reference point: right side of mouth Tube depth: 23 cm Tube secured with: adhesive tape Trauma: none Tube placement verification: carbon dioxide detection Performing provider: Javier James MD Please see intraoperative grid for any additional medication documentation. nesthesia Prepro cedure Evaluation - Javier James MD - 05/07/2019 10:21 PM PDT ANESTHESIA PREANESTHESIA EVALUATION Mani Garcia 53 y.o. male 1965 [id number] Procedure(s): Right L2-L3, L3-L4, L4-L5 Laminectomy with Discectomy at L2-L3 (Right Back) Medical,anesthesia, drug, allergy histories reviewed, NPO status verified. ECG reviewed. Labs reviewed. (+) perioperative beta-deepak/statin given/taken. . Review of Systems / Med History Anesthesia History TIVA in 2017 for colonoscopy with no issues.. (+) failed moderate sedation Cardiovascular Results for orders placed or performed in visit on 05/07/19 -ECG 12 lead Result Value Ref Ra nge INTERPRETATION TEXT Normal sinus rhythm Cannot rule out Inferior infarct , age undetermined When compared with ECG of 03/06/2018 Incomplete right bundle branch block is no longer present Criteria for Lateral infarct are no longer present T wave amplitude has increased in precordial leads:consider hyperkalemia Confirmed by PENNY KRAUS MD ([id number]) on 05/08/2019 5:56:01 AM . (+) hypertension, (+) PVD: . Pulmonary (+) sleep apnea (Noncompliant CPAP). (+) Sleep apnea history/interventions: known. 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 (+) current smoker. Gastrointestinal/Hepatic (+) hypercholesterolemia. (+) acid reflux. Renal Lab Results Component Value Date CREA 0.89 05/07/2019 BUN 20 05/07/2019 NA 139 05/07/2019 K 4.0 05/07/2019 CL 105 05/07/2019 CO2 29 05/07/2019 . Hematology/Other Lab Results Component Value Date WBC 11.9 (H) 05/07/2019 HGB 14.1 05/07/2019 HCT 41.8 05/07/2019 MCV 100.0 05/07/2019 PLT 330 05/07/2019 . Cancer (+) prostate cancer. Neuromuscular (+) arthritis, back pain, numbness/tingling (RLE), TIA, CVA (no resid sx), chronic pain. 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 Physical Exam Airway MP II, TM >3 FB, Mouth opening >2 FB. Neck: full ROM, extends >30 degrees. Dental Aruna ssly normal except where noted below.; (+) Chipped/Broken teeth, missing teeth and Poor dentition. CV Rhythm regular. Rate Normal. (-) murmur. Pulm Clear to auscultation bilaterally. Neuro Grossly normal. Anesthesia Plan ASA 3 (NAHUN, CVA, smoker) Type: General. Induction: Intravenous. Potential problems: None anticipated. Monitors: Standard ASA monitors. Consent statement:Anesthetic plan, alternatives, risks and benefits discussed with patient. discussed risks to teeth, heart problems, nausea, pain, perioperative CV events, respirator y events, sore throat. Consenting person understands and agrees to proceed . PARQ. Multimodal pain control to supplement opioids up to and including ketamine and dexmedetomid ine as hemodynamically tolerated. PARQ for bilateral ultrasound guided erector spinae plane block for post-op pain as requested by surgeon. . Electronically Signed by: Javier James MD ESig date/time: 05/08/2019 8:25 documented in thi s encounter Miscellaneous Notes Anesthesia Post-op Handoff - Javier James MD - 05/08/2019 1:07 PM PDT ANESTHESIA HANDOFF NOTE Mani Garcia 53 y.o. male 1965 [id number] The following were completed during the transfer of care: 1. Identification of patient 2. Identification of responsible practitioner (primary service) 3. Discussion of pertinent medical history 4. Discussion of the surgical/procedure course (procedure, reason for surgery, procedure pe rformed) 5. Intraoperative anesthetic management and issues/concerns 6. Expectations/plans for the early post-procedure period 7. Opportunity for questions and acknowledgement of understanding of report from receiving team Right L2-L3, L3-L4, L4-L5 Laminectomy with Discectomy at L2-L3 (Right Back) Patient Location: Phase I Handoff Protocol Used: post-procedure handoff checklist completed Condition: sedated Airway/O2: other (see comments) Multimodal analgesia: multimodal analgesia used between 6 hours prior to anesthesia start t o PACU discharge Comments: Supplemental Oxygen used as necessary to maintain Oxygen Saturation at or above 9 2% The significant anesthesia concerns and VS in Epic were reviewed with the receiving team. Javier James MD 05/08/2019 13:07 [facility] documented in this encounter Plan of Treatment Not on filedocumented as of this encounter Procedures + +--------+ + + + | Procedure Name | Priori | Date/Time | Associated Diagnosis | Comments | | | ty | | | | + +--------+ + + + | ANE NERVE BLOCK | Routin | 05/08/2019 | | Results for this | | CATHETER NOTE | e | 11:34 AM | | procedure are in the | | | | PDT | | results section. | + +--------+ + + + | ANE AIRWAY NOTE | Routin | 05/08/2019 | | Results for this | | | e | 10:23 AM | | procedure are in the | | | | PDT | | results section. | + +--------+ + + + documented in this encounter Results Nerve Block (05/08/2019 11:34 AM PDT) + + + | Narrative | Performed At | + + + | Javier James MD 05/08/2019 11:35 Perineural Procedure | | | Note 05/08/2019 10:10 LDA Nerve Block Type: Erector spinae plane. | | | Laterality: bilateral Continuous block with catheter: No Provider | | | requested procedure: Dr. Hilliard Indication: postoperative | | | analgesia Preprocedure check: patient identified, procedure and | | | rescue equipment checked, preevaluation including airway assessment | | | complete, risks/benefits discussed, consent obtained, timeout | | | performed, reassessment prior to procedure, monitors applied and | | | supplemental oxygen applied Patient position: prone Preparation: | | | chlorhexidine/isopropyl alcohol Technique: ultrasound Radiology | | | image stored in patient's chart: ultrasound Needle: echogenic, | | | stimulating, insulated and short-bevel Needle size: 22 g Needle | | | length: 4 in Medication administered through: needle Total volume of | | | local anesthetic solution administered: 40 mL Attempts: 1 Ease of | | | procedure: easy Comments: Patient under general anesthesia. | | | Left erector spinae block: Chloraprep to mid lower back. . | | | Ultrasound used to identify the transverse process of L vertebral | | | body at about L 3-4. Under continuous ultrasound guidance the | | | Stimuplex needle was advanced to the left transverse process. Local | | | anesthetic was injected in 5 ml increments in the erector spinae | | | plane with intermittent negative aspiration. Ultrasound was used | | | to visualize the spread of the anesthetic in close proximity to the | | | nerves being blocked with needle tip visualized throughout. The | | | anatomy appeared normal, and there were no apparent abnormal | | | pathological findings. A permanent ultrasound image was saved in the | | | patient's record. Right erector spinae block: Chloraprep to mid | | | lower back. . Ultrasound used to identify the transverse process | | | of right vertebral body at about L 3-4. Under continuous | | | ultrasound guidance the Stimuplex needle was advanced to the right | | | transverse process. Local anesthetic was injected in 5 ml increments | | | in the erector spinae plane with intermittent negative aspiration. | | | Ultrasound was used to visualize the spread of the anesthetic in | | | close proximity to the nerves being blocked with needle tip visualized | | | throughout. The anatomy appeared normal, and there were no | | | apparent abnormal pathological findings. A permanent ultrasound | | | image was saved in the patient's record. Please see | | | anesthesia record or flowsheet for vital sign documentation and see | | | anesthesia record or MAR for additional medication documentation. | | | | | + + + + + | Procedure Note | + + | Javier James MD - 05/08/2019 11:34 AM PDT Perineural Procedure Note05/08/2019 | | 10:10LDA Nerve Block Type: Erector spinae plane.Laterality: bilateralContinuous block | | with catheter: NoProvider requested procedure: Dr. HilliardIndication: postoperative | | analgesiaPreprocedure check: patient identified, procedure and rescue equipment checked, | | preevaluation including airway assessment complete, risks/benefits discussed, consent | | obtained, timeout performed, reassessment prior to procedure, monitors applied and | | supplemental oxygen appliedPatient position: pronePreparation: chlorhexidine/isopropyl | | alcoholTechnique: ultrasoundRadiology image stored in patient's chart: ultrasoundNeedle: | | echogenic, stimulating, insulated and short-bevelNeedle size: 22 gNeedle length: 4 | | inMedication administered through: needleTotal volume of local anesthetic solution | | administered: 40 mLAttempts: 1Ease of procedure: easyComments: Patient under general | | anesthesia. Left erector spinae block: Chloraprep to mid lower back. . Ultrasound used | | to identify the transverse process of L vertebral body at about L 3-4. Under continuous | | ultrasound guidance the Stimuplex needle was advanced to the left transverse process. | | Local anesthetic was injected in 5 ml increments in the erector spinae plane with | | intermittent negative aspiration. Ultrasound was used to visualize the spread of the | | anesthetic in close proximity to the nerves being blocked with needle tip visualized | | throughout. The anatomy appeared normal, and there were no apparent abnormal | | pathological findings. A permanent ultrasound image was saved in the patient's | | record.Right erector spinae block: Chloraprep to mid lower back. . Ultrasound used to | | identify the transverse process of right vertebral body at about L 3-4. Under | | continuous ultrasound guidance the Stimuplex needle was advanced to the right transverse | | process. Local anesthetic was injected in 5 ml increments in the erector spinae plane | | with intermittent negative aspiration. Ultrasound was used to visualize the spread of | | the anesthetic in close proximity to the nerves being blocked with needle tip visualized | | throughout. The anatomy appeared normal, and there were no apparent abnormal | | pathological findings. A permanent ultrasound image was saved in the patient's | | record.Please see anesthesia record or flowsheet for vital sign documentation and see | | anesthesia record or MAR for additional medication documentation. | |advanced to the right transverse process. Local anesthetic was injected in 5 ml increments in the erector spinae plane with intermittent negative aspiration. Ultrasound was used to v isualize the spread of the anesthetic | |in close proximity to the nerves being blocked with needle tip visualized throughout. The anatomy appeared normal, and there were no apparent abnormal pathological findings. A perman ent ultrasound image was saved in the patient's record. | | | | | | | | | | | |Please see anesthesia record or flowsheet for vital sign documentation and see anesthesia r ecord or MAR for additional medication documentation. | + + Anesthesia Airway Note (05/08/2019 10:23 AM PDT) + + + | Narrative | Performed At | + + + | Javier James MD 05/08/2019 10:24 Anesthesia Airway | | | Placement 05/08/2019 9:59 Preprocedure check: patient identified, | | | oxygen, airway assessed, patient reassessment prior to induction, | | | airway equipment checked and suction Rapid Sequence Induction: no | | | Mask ventilation: easy Successful technique: videoscope | | | Laryngoscope blade size: 3 Airway grade: 1 (Full view of glottis) | | | Other equipment: stylette Attempts: 1 Airway type: endotracheal | | | Size: 7.5 Cuffed: cuffed Route, reference point: right side of mouth | | | Tube depth: 23 cm Tube secured with: adhesive tape Trauma: none | | | Tube placement verification: carbon dioxide detection Performing | | | provider: Javier James MD Please see intraoperative | | | grid for any additional medication documentation. | | + + + + + | Procedure Note | + + | Javier James MD - 05/08/2019 10:23 AM PDT Anesthesia Airway | | Placement05/08/2019 9:59Preprocedure check: patient identified, oxygen, airway assessed, | | patient reassessment prior to induction, airway equipment checked and suctionRapid | | Sequence Induction: noMask ventilation: easySuccessful technique: | | videoscopeLaryngoscope blade size: 3 Airway grade: 1 (Full view of glottis)Other | | equipment: styletteAttempts: 1Airway type: endotrachealSize: 7.5Cuffed: cuffedRoute, | | reference point: right side of mouthTube depth: 23 cmTube secured with: adhesive | | tapeTrauma: noneTube placement verification: carbon dioxide detectionPerforming | | provider: Sherrell Dinh see intraoperative grid for any additional | | medication documentation. | |Attempts: 1 | |Airway type: endotracheal | |Size: 7.5 | |Cuffed: cuffed | |Route, reference point: right side of mouth | |Tube depth: 23 cm | |Tube secured with: adhesive tape | |Trauma: none | |Tube placement verification: carbon dioxide detection | |Performing provider: Javier James MD | | | | | | | |Please see intraoperative grid for any additional medication documentation. | + + documented in this encounter Visit Diagnoses Not on filedocumented in this encounter Administered Medications + +--------+ +--------+------+------+ | Medication Order | MAR | Action | Dose | Rate | Site | | | Action | Date | | | | + +--------+ +--------+------+------+ | bupivacaine 0.25%-EPINEPHrine | Given | 05/08/20 | 20 mLs | | | | 1:200,000 (PF) injection PRN, | | 19 10:11 | | | | | Starting 05/08/19 at 1009, | | AM PDT | | | | | Anesthesia Intra-op | | | | | | + +--------+ +--------+------+------+ +-------+ +--------+---+---+ | Given | 05/08/20 | 20 mLs | | | | | 19 10:09 | | | | | | AM PDT | | | | +-------+ +--------+---+---+ +---+---+ | | | +---+---+ + +-------+ +-----+---+---+ | ceFAZolin (ANCEF, KEFZOL) 100 | Given | 05/08/20 | 2 g | | | | mg/mL IV syringe 2 g 2 g, | | 19 10:15 | | | | | Intravenous, Administer over 30 | | AM PDT | | | | | Minutes, Prior to Incision, | | | | | | | Starting Tue05/08/19 at 0915, For | | | | | | | 1 dose, Pre-op, Indications: | | | | | | | Surgical Prophylaxis | | | | | | + +-------+ +-----+---+---+ +---+---+ | | | +---+---+ + +-------+ +-------+---+---+ | dexamethasone (PF) 10 mg/mL | Given | 05/08/20 | 10 mg | | | | injection Intravenous, PRN, | | 19 10:18 | | | | | Starting [facility] 05/08/19 at 1018, | | AM PDT | | | | | Anesthesia Intra-op | | | | | | + +-------+ +-------+---+---+ +---+---+ | | | +---+---+ + +---------+ + +-------+---+ | dexmedetomidine (PRECEDEX) 400 | New Bag | 05/08/20 | 0.25 | 5.3 | | | mcg in 100 mL NS infusion | | 19 11:00 | mcg/kg/h | mL/hr | | | Intravenous, CONTINUOUS PRN, | | AM PDT | r | | | | Starting 05/08/19 at 1100, | | | | | | | Anesthesia Intra-op | | | | | | + +---------+ + +-------+---+ +---+---+ | | | +---+---+ + +-------+ +--------+---+---+ | dexmedetomidine (PRECEDEX) in | Given | 05/08/20 | 50 mcg | | | | sodium chloride bolus infusion | | 19 10:15 | | | | | Intravenous, PRN, Starting Tue | | AM PDT | | | | | 05/08/19 at 1015, Anesthesia | | | | | | | Intra-op | | | | | | + +-------+ +--------+---+---+ +---+---+ | | | +---+---+ + +-------+ +-------+---+---+ | ePHEDrine (AKOVAZ) 50 mg/mL | Given | 05/08/20 | 10 mg | | | | injection PRN, Starting Tue | | 19 11:28 | | | | | 05/08/19 at 1117, Anesthesia | | AM PDT | | | | | Intra-op | | | | | | + +-------+ +-------+---+---+ +-------+ +-------+---+---+ | Given | 05/08/20 | 10 mg | | | | | 19 11:22 | | | | | | AM PDT | | | | +-------+ +-------+---+---+ | Given | 08/13/20 | 15 mg | | | | | 19 11:17 | | | | | | AM PDT | | | | +-------+ +-------+---+---+ +---+---+ | | | +---+---+ + +-------+ +---------+---+---+ | fentaNYL (PF) injection PRN, | Given | 05/08/20 | 100 mcg | | | | Starting Tue05/08/19 at 0957, | | 19 9:57 | | | | | Anesthesia Intra-op | | AM PDT | | | | + +-------+ +---------+---+---+ +---+---+ | | | +---+---+ + +-------+ +--------+---+---+ | HYDROmorphone (DILAUDID) 2 | Given | 05/08/20 | 0.5 mg | | | | mg/mL injection PRN, Starting | | 19 12:08 | | | | | e 05/08/19 at 1157, Anesthesia | | PM PDT | | | | | Intra-op | | | | | | + +-------+ +--------+---+---+ +-------+ +--------+---+---+ | Given | 05/08/20 | 0.5 mg | | | | | 19 11:57 | | | | | | AM PDT | | | | +-------+ +--------+---+---+ +---+---+ | | | +---+---+ + +-------+ +-------+---+---+ | ketamine 50 mg/mL injection | Given | 05/08/20 | 25 mg | | | | PRN, Starting 05/08/19 at | | 19 11:00 | | | | | 1015, Anesthesia Intra-op | | AM PDT | | | | + +-------+ +-------+---+---+ +-------+ +-------+---+---+ | Given | 05/08/20 | 50 mg | | | | | 19 10:15 | | | | | | AM [...] | | +---+---+ + +-------+ +-------+---+---+ | lidocaine (PF) 2% injection | Given | 05/08/20 | 25 mg | | | | PRN, Starting Tue05/08/19 at | | 19 10:06 | | | | | 0957, Anesthesia Intra-op | | AM PDT | | | | + +-------+ +-------+---+---+ +-------+ +-------+---+---+ | Given | 05/08/20 | 75 mg | | | | | 19 9:57 | | | | | | AM PDT | | | | +-------+ +-------+---+---+ +---+---+ | | | +---+---+ + +---------+ +-------+---------+---+ | lidocaine (PF) 2% injection | New Bag | 05/08/20 | 160 | 8 mL/hr | | | Intravenous, CONTINUOUS PRN, | | 19 11:00 | mg/hr | | | | Starting Tue05/08/19 at 1100, | | AM PDT | | | | | Anesthesia Intra-op | | | | | | + +---------+ +-------+---------+---+ +---+---+ | | | +---+---+ + +-------+ +-----+---+---+ | magnesium sulfate 500 mg/mL | Given | 05/08/20 | 2 g | | | | injection Intravenous, PRN, | | 19 10:20 | | | | | Starting Tu05/08/19 at 1020, | | AM PDT | | | | | Anesthesia Intra-op | | | | | | + +-------+ +-----+---+---+ +---+---+ | | | +---+---+ + +-------+ +------+---+---+ | midazolam (VERSED) 1 mg/mL | Given | 05/08/20 | 2 mg | | | | injection Intravenous, PRN, | | 19 9:50 | | | | | Starting 05/08/19 at 0950, | | AM PDT | | | | | Anesthesia Intra-op | | | | | | + +-------+ +------+---+---+ +---+---+ | | | +---+---+ + +-------+ +------+---+---+ | ondansetron (ZOFRAN) injection | Given | 05/08/20 | 4 mg | | | | PRN, Starting 05/08/19 at | | 19 10:18 | | | | | 1018, Anesthesia Intra-op | | AM PDT | | | | + +-------+ +------+---+---+ +---+---+ | | | +---+---+ + +-------+ +---------+---+---+ | phenylephrine (HAYDER-SYNEPHRINE) | Given | 05/08/20 | 100 mcg | | | | 100 mcg/mL injection | | 19 11:08 | | | | | Intravenous, PRN, Starting Tue | | AM PDT | | | | | 05/08/19 at 1036, Anesthesia | | | | | | | Intra-op | | | | | | + +-------+ +---------+---+---+ +-------+ +---------+---+---+ | Given | 05/08/20 | 100 mcg | | | | | 19 10:54 | | | | | | AM PDT | | | | +-------+ +---------+---+---+ | Given | 05/08/20 | 100 mcg | | | | | 19 10:36 | | | | | | AM PDT | | | | +-------+ +---------+---+---+ +---+---+ | | | +---+---+ + + + + +-------+---+ | phenylephrine (HAYDER-SYNEPHRINE, | Rate/Dos | 05/08/20 | 0.1 | 0.1 | | | VAZCULEP) 10 mg/mL injection | e Change | 19 12:37 | mcg/kg/m | mL/hr | | | Intravenous, CONTINUOUS PRN, | | PM PDT | in | | | | Starting 05/08/19 at 1148, | | | | | | | Anesthesia Intra-op | | | | | | + + + + +-------+---+ + + + +-------+---+ | Rate/Dose Change | 05/08/20 | 0.2 | 0.1 | | | | 19 12:21 | mcg/kg/m | mL/hr | | | | PM PDT | in | | | + + + +-------+---+ | New Bag | 05/08/20 | 0.3 | 0.2 | | | | 19 11:48 | mcg/kg/m | mL/hr | | | | AM PDT | in | | | + + + +-------+---+ +---+---+ | | | +---+---+ + +-------+ +-------+---+---+ | propofol (DIPRIVAN) injection | Given | 05/08/20 | 50 mg | | | | PRN, Starting 05/08/19 at | | 19 10:23 | | | | | 1023, Anesthesia Intra-op | | AM PDT | | | | + +-------+ +-------+---+---+ +-------+ +--------+---+---+ | Given | 05/08/20 | 50 mg | | | | | 19 10:06 | | | | | | AM PDT | | | | +-------+ +--------+---+---+ | Given | 05/08/20 | 150 mg | | | | | 19 9:57 | | | | | | AM PDT | | | | +-------+ +--------+---+---+ +---+---+ | | | +---+---+ + + + + +-------+---+ | propofol (DIPRIVAN) injection | Rate/Dos | 05/08/20 | 100 | 50.8 | | | Intravenous, CONTINUOUS PRN, | e Change | 19 12:37 | mcg/kg/m | mL/hr | | | Starting 05/08/19 at 1047, | | PM PDT | in | | | | Anesthesia Intra-op | | | | | | + + + + +-------+---+ + + + +--------+---+ | Rate/Dose Change | 05/08/20 | 140 | 71.1 | | | | 19 11:08 | mcg/kg/m | mL/hr | | | | AM PDT | in | | | + + + +--------+---+ | New Bag | 05/08/20 | 200 | 101.5 | | | | 19 10:47 | mcg/kg/m | mL/hr | | | | AM PDT | in | | | + + + +--------+---+ +---+---+ | | | +---+---+ + +-------+ +--------+---+---+ | succinylcholine (ANECTINE) | Given | 05/08/20 | 100 mg | | | | injection Intravenous, PRN, | | 19 9:57 | | | | | Starting 05/08/19 at 0957, | | AM PDT | | | | | Anesthesia Intra-op | | | | | | + +-------+ +--------+---+---+ +---+---+ | | | +---+---+ + +---------+ +-----+---+---+ | vancomycin 1 g in sodium | New Bag | 05/08/20 | 1 g | | | | chloride 0.9% 250 mL IVPB 1 g, | | 19 10:10 | | | | | Intravenous, Administer over 90 | | AM PDT | | | | | Minutes, ONCE, 05/08/19 at | | | | | | | 1015, For 1 dose, Activate system | | | | | | | and mix before use., Pre-op, | | | | | | | Indications: Staphylococcus | | | | | | | aureus | | | | | | + +---------+ +-----+---+---+ +---+---+ | | | +---+---+ documented in this encounter"
--- OUTSIDE RECORDS SUMMARY | ~2020-06-06 | XMS | Encounter Summary ---
Demographics + + + | Address | NEED ADDRESS | | | [place] [address] | + + + | Home Phone [...] Hector Garcia | ECON | [place] [address] | | + + + + + Care Team Providers + +------+ + | Care Button Bradder Name | Role | Phone | + +------+ + | Aryan Grossman MD | PCP | | + +------+ + Encounter Details +--------+ + + + + | Date | Type | Department | Care Team | Description | +--------+ + + + + | 11/30/ | Hospital | [facility] | Aryan Grossman, | HTN (hypertension); | | 2013 | Encounter | [facility] | [address] | Hyperlipidemia; | | | | [address] | [address] [place], | Screening | | | | [place] | [place] [address] | | | | | [address] | [phone] | | | | | [phone] | | | +--------+ + + + [...] lisinopril | Take 1 tablet by | 30 | 1 | 11/12/19 | | | (PRINIVIL, ZESTRIL) | mouth Daily. | tablet | | 14 | 4 | | 20 mg | | | | | | | tabletIndications: | | | | | | | HTN (hypertension) | | | | | | + + + +---------+ + + documented as of this encounter Progress Aryan Gates MD - 11/30/2013 12:13 PM PST Quick Note: Ok for ma to notify patient that he has somewhat abnormal labs and would like to discuss w carolina a week documented in thi s encounter Plan of Treatment Not on filedocumented as of this encounter Procedures + +--------+ + + + | Procedure Name | Priori | Date/Time | Associated Diagnosis | Comments | | | ty | | | | + +--------+ + + + | URINALYSIS WITH | Routin | 11/30/2013 | | Results for this | | MICROSCOPIC IF | e | 9:51 AM | | procedure are in the | | INDICATED | | PST | | results section. | + +--------+ + + + | URINALYSIS WITH | Routin | 11/30/2013 | HTN (hypertension) | Results for this | | MICROSCOPIC IF | e | 9:51 AM | | procedure are in the | | INDICATED | | PST | | results section. | + +--------+ + + + | LIPID PROFILE | Routin | 11/30/2013 | | Results for this | | | e | 9:37 AM | | procedure are in the | | | | PST | | results section. | + +--------+ + + + | PSA, SCREEN | Routin | 11/30/2013 | | Results for this | | | e | 9:37 AM | | procedure are in the | | | | PST | | results section. | + +--------+ + + + | CBC WITH | Routin | 11/30/2013 | | Results for this | | DIFFERENTIAL | e | 9:37 AM | | procedure are in the | | | | PST | | results section. | + +--------+ + + + | C-REACTIVE PROTEIN, | Routin | 11/30/2013 | | Results for this | | HIGH SENSITIVITY | e | 9:37 AM | | procedure are in the | | | | PST | | results section. | + +--------+ + + + | TSH | Routin | 11/30/2013 | | Results for this | | | e | 9:37 AM | | procedure are in the | | | | PST | | results section. | + +--------+ + + + | COMPREHENSIVE | Routin | 11/30/2013 | | Results for this | | METABOLIC PANEL | e | 9:37 AM | | procedure are in the | | | | PST | | results section. | + +--------+ + + + | LIPID PROFILE | Routin | 11/30/2013 | Hyperlipidemia | Results for this | | | e | 9:32 AM | | procedure are in the | | | | PST | | results section. | + +--------+ + + + | PSA, SCREEN | Routin | 11/30/2013 | Screening | Results for this | | | e | 9:32 AM | | procedure are in the | | | | PST | | results section. | + +--------+ + + + | CBC WITH | Routin | 11/30/2013 | HTN (hypertension) | Results for this | | DIFFERENTIAL | e | 9:32 AM | | procedure are in the | | | | PST | | results section. | + +--------+ + + + | C-REACTIVE PROTEIN, | Routin | 11/30/2013 | HTN (hypertension) | Results for this | | HIGH SENSITIVITY | e | 9:32 AM | | procedure are in the | | | | PST | | results section. | + +--------+ + + + | TSH | Routin | 11/30/2013 | HTN (hypertension) | Results for this | | | e | 9:32 AM | | procedure are in the | | | | PST | | results section. | + +--------+ + + + | COMPREHENSIVE | Routin | 11/30/2013 | HTN (hypertension) | Results for this | | METABOLIC PANEL | e | 9:32 AM | | procedure are in the | | | | PST | | results section. | + +--------+ + + + documented in this encounter Results Urinalysis with Microscopic if [...] - 1.030 | [facility] | | | [place], | | | [facility] | | [...] + + + + + + | MICROSCOPIC | NO | | [facility] | | | ? | | | [facility] | | [...] [address] | [place] | [phone] | | [facility] | | [address] | | | - LABORATORY | | | | + + + + + | [facility] | [address] | [place] | | | [facility] | | [address] | | | - LABORATORY | | | | + + + + + Urinalysis with Microscopic if Indicated (11/30/2013 9:51 AM PST) + + + + + + | Component | Value | Ref Range | Performed | Pathologist | | | | | At | Signature | + + + + + + | COLLECTION | UNKNOWN | | [facility] | | | [facility] | | | [facility] | | | | | | MEDICAL | | | | | | CENTER - | | | | | | LABORATORY | | + + + + + + | Color, | YELLOW | | [facility] | | | Urine | | | [facility] | | [...] - 1.030 | [facility] | | | [place], | | | [facility] | | [...] + | [facility] | [address] | [place] | [phone] | | [facility] | | [address] | | | - LABORATORY | | | | + + + + + | [facility] | [address] | [place] | | | [facility] | | [address], [facility] | | | - LABORATORY | | | | + + + + + CBC with Differential (11/30/2013 9:37 AM PST) + + + + + + | Component | Value | Ref Range | Performed | Pathologist | | | | | At | Signature | + + + + + + | MANUAL | NO | | [facility] | | | DIFFERENTIA | | | [facility] | | | L ? | | | MEDICAL | | | | | | CENTER - | | | | | | LABORATORY | | + + + + + + | White Blood | 8.5 | 4.0 - 11.0 K/uL | [facility] | | | Cells | | | [facility] | | [...] | | | | | gm/dL | [facility] | | | | [...] | | | Eosinophils | | | [facility] | | | | | | MEDICAL [...] + | [facility] | [address] | [place] | [phone] | | [facility] | | [address] | | | - LABORATORY | | | | + + + + + | [facility] | [address] | [place] | | | [facility] | | [address], [facility] | | | - LABORATORY | | | | + + + + + PSA, Screen (11/30/2013 9:37 AM PST) + + + + + + | Component | Value | Ref Range | Performed | Pathologist | | | | | At | Signature | + + + + + + | PSA | 75.46 (H)Comment: | 0.00 - 4.00 | [facility] | | | | Testing performed on the | ng/mL | [facility] | | | | [facility] | | MEDICAL | | | [...] + | [facility] | [address] | [place], [place] | [phone] | | [facility] | | [address] | | | - LABORATORY | | | | + + + + + | [facility] | [address] | [place], [place] | | | [facility] | | [address] | | | - LABORATORY | | | | + + + + + TSH (11/30/2013 9:37 AM PST) + + + + + + | Component | Value | Ref Range | Performed | Pathologist | | | | | At | Signature | + + + + + + | TSH | 0.90Comment: Testing | 0.34 - 5.60 | [facility] | | | | performed on the [facility] | uIU/mL | [facility] | | | | [facility] | | MEDICAL | | | [...] + | [facility] | [address] | [place] | [phone] | | [facility] | | [address] | | | - LABORATORY | | | | + + + + + | [facility] | [address] | [place] | | | [facility] | | [id number] [place] [address] | | | - LABORATORY | | | | + + + + + Lipid Profile (11/30/2013 9:37 AM PST) + + + + + + | Component | Value | Ref Range | Performed | Pathologist | | | | | At | Signature | + + + + + + | Triglycerid | 86 | 35 - 160 mg/dL | [facility] | | | es | | | [facility] | | | | | | MEDICAL | | | | | | CENTER - | | | | | | LABORATORY | | + + + + + + | Cholesterol | 156 | 150 - 200 mg/dL | [facility] | | | | [...] | | | Calculated | | | [facility] | | | | | | MEDICAL | | | | | | CENTER - | | | | | | LABORATORY | | + + + + + + | Chol/HDL | 2.2Comment: | | [facility] | | | Ratio | | | [facility] | | | | | | MEDICAL | | | | ------- RISK CATEGORY: | | CENTER - | | | | CHOL/HDL * T.CHOL * LDL | | LABORATORY | | | | CHOL * HDL CHOL | | | | | | | | | | | | RATIO DESIRABLE: (M) | | | | | | 4.0-6.7 <200 | | | | | | <130 >50 | | | | | | (F) | | | | | | 3.7-4.2 BORDERLINE:(M) | | | | | | 6.7-7.4 200-240 | | | | | | 130-160 <45 | | | | | | (F) | | | | | | 4.2-5.5 HIGH RISK: (M) | | | | | | >7.4 >240 | | | | | | >160 <35 | | | | | | (F) | | | | | | >5.5 | | | | | | | | | | | | | | | | | | --------- | | | | + + + + + + + + | Specimen | + + | | + + + + + + + | Performing | Address | City/State/Zipcode | Phone Number | | Organization | | | | + + + + + | [facility] | [address] | [place], [place] | [phone] | | [facility] | | [address] | | | - LABORATORY | | | | + + + + + | [facility] | [address] | [place], [place] | | | [facility] | | [address] [place] [address] | | | - LABORATORY | | | | + + + + + Comprehensive Metabolic Panel (11/30/2013 9:37 AM PST) + + + + + + | Component | Value | Ref Range | Performed | Pathologist | | | | | At | Signature | + + + + + + | Glucose | 105 | 70 - 109 mg/dL | [facility] | | | | [...] | | Phosphatase | | | [facility] | | [...] 12 | 7 - 18 mg/dL | [facility] | | | | | | [facility] | | | | | | MEDICAL | | | | | | CENTER - | | | | | | LABORATORY | | + + + + + + | Creatinine | 0.86 | 0.60 - 1.30 | [facility] | | | | | mg/dL | [facility] | | | | | | MEDICAL | | | | | | CENTER - | | | | | | LABORATORY | | + + + + + + | Estimated | >60Comment: For | >60 mL/min/A | [facility] | | | GFR | -Americans, | | [facility] | | | | please multiply the | | MEDICAL | | | | result by 1.210 | | CENTER - | | | | This is an estimated | | LABORATORY | | | | GFR and is based on a | | [...] + | [facility] | [address] | [place] | [phone] | | [facility] | | [address] | | | - LABORATORY | | | | + + + + + | [facility] | [address] | [place] | | | [facility] | | [address], [facility] | | | - LABORATORY | | | | + + + + + C-Reactive Protein, High Sensitivity (11/30/2013 9:37 AM PST) + + + + + + | Component | Value | Ref Range | Performed | Pathologist | | | | | At | Signature | + + + + + + | CRP, High | 0.9Comment: | 0.0 - 3.0 mg/L | [facility] | | | Sensitive | Interpretation for | | [facility] | | | | Coronary Heart Disease | | MEDICAL | | | | Risk: Low | | CENTER - | | | | risk: <1.0 Average | | LABORATORY | | | | risk: 1.0 to 3.0 | | | | | | High Risk: >3.0 | | | | | | Relative risk | | | | | | categories follow the | | | | | | recommendations of the | | | | | | [place] [employer] | | | | | | Association and the CDC. | | | | | | Measurement of the | | | | | | hsCRP should be done | | | | | | twice (averaging | | | | | | results), optimally | | | | | | two weeks apart, in | | | | | | metabolically stable | | | | | | patients. If the | | | | | | hsCRP level is >10 | | | | | | mg/L, the test should be | | | | | | repeated and the | | | | | | patient examined for | | | | | | non cardiovascular | | | | | | sources of | | | | | | inflammation, such as | | | | | | infection. | | | | + + + + + + + + | Specimen | + + | | + + + + + + + | Performing | Address | City/State/Zipcode | Phone Number | | Organization | | | | + + + + + | [facility] | [address] | [place] | [phone] | | [facility] | | [address] | | | - LABORATORY | | | | + + + + + | [facility] | [address] | [place] | | | [facility] | | [address] | | | - LABORATORY | | [...] of | | | | | | the[employer] | | | | | | [...] + | [facility] | [address] | [place] | [phone] | | [facility] | | [address] | | | - LABORATORY | | | | + + + + + | [facility] | [address] | [place], [place] | | | [facility] | | [address] | | | - LABORATORY | | | | + + + + + PSA, Screen (11/30/2013 9:32 AM PST) + + + + + + | Component | Value | Ref Range | Performed | Pathologist | | | | | At | Signature | + + + + + + | PSA | 75.46 (H)Comment: | 0.00 - 4.00 | [facility] | | | | Testing performed on the | ng/mL | [facility] | | | | [facility] | | MEDICAL | | | [...] [address] | [place] | [phone] | | [facility] | | [address] | | | - LABORATORY | | | | + + + + + | [facility] | [address] | [place] | | | [facility] | | [address], [facility] | | | - LABORATORY | | | | + + + + + TSH (11/30/2013 9:32 AM PST) + + + + + + | Component | Value | Ref Range | Performed | Pathologist | | | | | At | Signature | + + + + + + | TSH | 0.90Comment: Testing | 0.34 - 5.60 | [facility] | | | | performed on the Joshua | uIU/mL | [facility] | | | | [facility] | | MEDICAL | | | [...] + | [facility] | [address] | [place], [place] | [phone] | | [facility] | | [address] | | | - LABORATORY | | | | + + + + + | [facility] | [address] | [place], [place] | | | [facility] | | [id number] [place] [address] | | | - LABORATORY | | [...] 156 | 150 - 200 mg/dL | [facility] | | | | [...] | | | Calculated | | | [facility] | | | | | | MEDICAL | | | | | | CENTER - | | | | | | LABORATORY | | + + + + + + | Chol/HDL | 2.2Comment: | | [facility] | | | Ratio | | | [facility] | [...] + + + + + | [facility] | [address] | [place] | [phone] | | [facility] | | [address] | | | - LABORATORY | | | | + + + + + | [facility] | [address] | [place] | | | [facility] | | [address], [facility] | | | - LABORATORY | | | | + + + + + Comprehensive Metabolic Panel (11/30/2013 9:32 AM PST) + + + + + + | Component | Value | Ref Range | Performed | Pathologist | | | | | At | Signature | + + + + + + | Glucose | 105 | 70 - 109 mg/dL | [facility] | | | | [...] 12 | 7 - 18 mg/dL | [facility] [...] + | [facility] | [address] | [place], [place] | [phone] | | [facility] | | [address] | | | - LABORATORY | | | | + + + + + | [facility] | [address] | [place], [place] | | | [facility] | | [address] [place] [address] | | | - LABORATORY | | [...] | | | | | gm/dL | [facility] | | | | [...] | | | Basophils | | | [facility] | | [...] + | [facility] | [address] | [place] | [phone] | | [facility] | | [id number] | | | - LABORATORY | | | | + + + + + | [facility] | [address] | [place] | | | [facility] | | [address] [place] [address] | | | - LABORATORY | | | | + + + + + documented in this encounter Visit Diagnoses + + | Diagnosis | + + | HTN (hypertension) Unspecified essential hypertension | + + | Hyperlipidemia Other and unspecified hyperlipidemia | + + | Screening Screening for unspecified condition | + + documented in this encounter"
--- OUTSIDE RECORDS SUMMARY | ~2020-06-06 | XMS | Encounter Summary ---
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 | [place] | [phone] | | | | | neoplasm of | [address] | Fax: | | | | | bone (HCC) | Phone: | [phone] | | | | | Procedures | [phone] | | | | | | [place] DENOSUMAB | Fax: | | | | | | INJECTION, | [phone] | | | | | | 1 MG | | | +--------+--------+ + + + + Encounter Details +--------+ + + + + | Date | Type | Department | Care Team | Description | +--------+ + + + + | 08/31/ | Hospital | [facility] | NataleeMaged, | Bone metastases | | 2018 | Encounter | MED CTR CHEMO | MD [address] | (HCC); Prostate | | | | INFUSION [address] [place], | cancer (HCC) | | | | [place] | [place] [address] | | | | | [place] [address] | [phone] | | | | | [phone] | | | +--------+ + + + [...] encounter Progress Notes Sumi Bai RN - 08/31/2018 2:33 PM PSTPatient finished with treatment today, jason es any questions or concerns. AVS provided with follow up appointments. He states that he ma y be seen by oral surgeon soon, Dr. Ortiz has instructed him to let his surgeon know belkis t he is currently receiving Xgeva therapy. I have given written information on Xgeva so that he can give this to surgeon. He is discharged to home in stable condition alone. Electronic ally signed by Sumi Bai RN at 08/31/2018 2:35 PM PSTdocumented in this encounter Miscellaneous Notes Treatment Plan - Sumi Bai RN - 08/31/2018 2:19 PM PSTViewed chart for weight, v ital [...] (XGEVA) 120 mg/1.7 mL | Given | 08/31/20 | 120 mg | | Arm-Left | | injection 120 mg 120 mg, | | 18 2:26 | | | Upper | | Subcutaneous, ONCE, [facility] 08/31/18 | | PM PST | | | | | at 1445, For 1 dose, Keep in | | | | | | | refrigerator. Allow to attain | | | | | | | room temperature prior to use., | | | | | | + +--------+ +--------+------+ + +---+---+ | | | +---+---+ documented in this encounter"
--- OUTSIDE RECORDS SUMMARY | ~2020-06-06 | XMS | Encounter Summary ---
Demographics + + + | Address | [address] | | | [place] [address] | + + + | Home Phone [...] Author + + + | Author | [facility] | + + + | Organization | [facility] | + + + [...] + +------+ + | Care Senior Java Web Developer Name | Role | Phone | + +------+ + | Aryan Grossman MD | PCP | | + +------+ + Encounter Details +--------+ + + + + | Date | Type | Department | Care Team | Description | +--------+ + + + + | 10/19/ | Abstract | Urology at [facility] | Simran Osman, | | | 2017 | | [address] | [facility] [address] | | | | | Mailcode: [id number] | [address] | | | | | [place] [facility] | [place], [place] | | | | | and Healing, | [address] | | | | | | [phone] | | | | | Floor [place], [place] | | | | | | [address] | | | | | | [phone] | | | +--------+ + + + [...]
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
--- OUTSIDE RECORDS SUMMARY | ~2020-06-06 | XMS | Encounter Summary ---
Demographics + + + | Address | [address] | | | [facility] [address] | + + + | Home Phone | | + + + | Preferred Language | Unknown | + + + | Marital Status | Single | + + + | Baptism Affiliation | CHR | + + + | Race | White | + + + | Ethnic Group | Not or | + + + Author + + + | Author | [facility] | + + + | Organization | [facility] | + + + | Address | Unknown | + + + | Phone | Unavailable | + + + Support + + +---------+ + | Name | Relationship | Address | Phone | + + +---------+ + | Servando Boyer | ECON | Unknown | | + + +---------+ + Care Team Providers + +------+ + | Care Hazmat Tanker Driver Name | Role | Phone | + [...] + + + | Closed | | Hematology & | Diagnoses | Seun, | Reema, | | | | Oncology | Prostate | MD Columba | MD Frederic | | | | | cancer (HCC) | [address] | [address] | | | | | Procedures | [address] [place] | [place] | | | | | CONSULT TO | [place] [address] | [place], [place] | | | | | HEMATOLOGY | Phone: | [phone] | | | | | / ONCOLOGY | [phone] | Phone: | | | | | PRACTICE | Fax: | [phone] | | | | | | [phone] | Fax: | | | | | | | [phone] | +--------+--------+ + + + + PROC - Inpatient Surgery (Routine) +--------+--------+ + + + + | Status | Reason | Specialty | Diagnoses / | Referred By | Referred To | | | | | Procedures | Contact | Contact | +--------+--------+ + + + + | Closed | | Urology | Diagnoses | Seun, | Seun | | | | | Prostate | MD Columba | MD Columba | | | | | cancer (HCC) | [address] | [address] | | | | | Procedures | St [place], | [place], [place] | | | | | REQUEST TO | [place] [address] | [address] Phone: | | | | | SURGERY | Phone: | [phone] | | | | | COMMUNITY COORDINATOR | [phone] | Fax: | | | | | [place] REMV | Fax: | [phone] | | | | | PROSTATE,RET | [phone] | | | | | | CORONA MAYBERRYCA | | | | | | | L [place] REMV | | | | | | | PROSTATE,RET | | | | | | | ROPUB,RAD,TO | | | | | | | T NODES | | | | | | | open radical | | | | | | | | | | | | | | prostatectom | | | | | | | y | | | +--------+--------+ + + + + Diagnostic Testing (Routine) +--------+--------+ + + + + | Status | Reason | Specialty | Diagnoses / | Referred By | Referred To | | | | | Procedures | Contact | Contact | +--------+--------+ + + + + | Closed | | Radiology | Diagnoses | Squiers, | [facility] | | | | | Prostate | Shayy N, | [address] | | | | | cancer (HCC) | ANP [address] | [address] | | | | | Procedures | [address] | [address] | | | | | MRI PELVIS | [facility] [place] | Research | | | | | W[place] | [address] | Center | | | | | CONTRAST [place] | | [facility] [place] | | | | | MRI, | | [address] | | | | | PELVIS, | | Phone: | | | | | COMBO | | [phone] | | | | | | | Fax: | | | | | | | [phone] | +--------+--------+ + + + + Reason for Visit + + + | Reason | Comments | + + + | New Patient Visit | | + + + Consultation (Routine) +--------+ + + + + + | Status | Reason | Specialty | Diagnoses / | Referred By | Referred To | | | | | Procedures | Contact | Contact | +--------+ + + + + + | Closed | Specialty | Urology | Diagnoses | Shruthi, | Seun, | | | Services | | Prostate | Zeeshan Powell MD | MD Columba | | | Required | | cancer (HCC) | Prosser | [address] [place] [address] | | | | | prostate | Health | [place] | | | | | cancer | Urology [address] | [address] Phone: | | | | | | [address] | [phone] | | | | | | [address] | Fax: | | | | | | [place], | [phone] | | | | | | [place] [address] | | | | | | | Phone: | | | | | | | [phone] | | | | | | | Fax: | | | | | | | [phone] | | +--------+ + + + + + Encounter Details +--------+---------+ + + + | Date | Type | Department | Care Team | Description | +--------+---------+ + + + | 07/09/ | Office | Urology at [facility] | Columba Kohli, | Prostate cancer | | 2013 | Visit | [address] | [address] | ([facility]) (Primary Dx) | | | | Mailcode: CH10U | [place] [address] | | | | | [facility] | [phone] | | | | | and Juan, | | | | | | | | | | | | Floor [place], [place] | | | | | | [address] | | | | | | [phone] | | | +--------+---------+ + + + Social History + + + +--------+------+ | Tobacco Use | Types | Packs/Day | Years | Date | | | | | Used | | + + + +--------+------+ | Smoker, Current | Cigarettes | 0.5 | 24 | | | Status Unknown | | | | | + + + +--------+------+ + + | Tobacco Cessation: Ready [...] + + + | Blood Pressure | 166/101 | 07/09/2014 2:03 PM | | | | | PDT | | + + + + + | Pulse | 79 | 07/09/2014 2:03 PM | | | | | PDT [...] Weight | 93 kg (205 lb) | 07/09/2014 2:03 PM | | | | | PDT | | + + + + + | Height | - | - | | + + + + + | Body Mass Index | - | - | | + + + + + documented in this encounter Progress Notes Sarita Monge MA - 07/09/2014 2:55 PM PDT Review of Systems Constitutional: Positive for malaise/fatigue. HENT: Positive for headaches, hearing loss and congestion. Eyes: Positive for blurred vision. Respiratory: Positive for wheezing. Cardiovascular: Positive for claudication. Gastrointestinal: Positive for heartburn, nausea and vomiting. Genitourinary: Positive for frequency. Musculoskeletal: Positive for back pain, joint pain and myalgias. Neurological: Positive for tingling and weakness. Endo/Heme/Allergies: Positive for environmental allergies. Psychiatric/Behavioral: Positive for depression. The patient is nervous/anxious and has ins omnia. All other systems reviewed and are negative. Physical Exam quShayy carter ANP - 07/09/2014 2:07 PM PDT . UROLOGIC ONCOLOGY CLINIC New Patient Evaluation CC: New diagnosis of prostate cancer HISTORY OF PRESENT ILLNESS: Mr. Garcia is a 49 year old man referred for high risk prostate cancer. He was noted to have a diffusely firm and indurated prostate and a psa on 11/30/13 was 75.46. A biopsy on 02/13/14 d emonstrated GG7 in all cores, with 90-96% volume. Bone scan (02/21/14)and CT scan (02/21/14) w ere both negative. On 02/20/14, a repeat psa was 86.19. He was initially planning XRT in [facility], but he was uninsured. He instead started on Casodex. He has not had luperon secondary t o cost with no insurance. He was noted to have significant lower urinary tract symptoms, an d given his young age and symptoms, he is referred for prostatectomy. He had an AUA SS of 28 . Apparently his voiding symporms hav eimproved somewhat. He has no dysuria or hematuira He has not had urinary tract infections. On 05/31/14 his psa was 28. HIs creatinine was 0.79 Inc[employer] Daily Hundred[employer] lab: LLB 4+3 90%, LLM 4+3 95%, la 4+3, 96%, RLB 4+3 96%, RLM 4+3 95%, RA 3+4 96% He has moderate voiding symptoms with an AUA Symptom Score of 10/35. He has no history of p rostatitis and no recent exacerbation of his voiding symptoms, he reports it may be slightly better since starting biclutamide. He has no incontinence and no gross hematuria. He has no sexual function for over 2 years with a MAURICIO score of 5/25. There is no family history of p rostate cancer. No Previous abdominal surgeries. Medical History Hypertension Arthritis Prostate cancer Surgical History Prior lumbar surgery 1992 Surgery on right hand 2006 No past surgical history on file. Family History Breast and cervical cancer History Social History Marital Status: Single Spouse Name: N/A Number of Children: N/A Years of Education: N/A Social History Main Topics Smoking status: Current smoker 1/2 pack x 24 years Smokeless tobacco: No Alcohol Use: Less than 2 drinks per week Drug Use: Problem in the past, not currently Sexual Activity: Not on file Other Topics Concern Not on file Social History Narrative No narrative on file No current outpatient prescriptions on file. No current facility-administered medications for this visit. Allergies not on file REVIEW OF SYSTEMS: A complete review of systems has been reviewed and documented in the [facility] rt. PHYSICAL EXAM: BP 166/101 | Pulse 79 | Wt 92.987 kg (205 lb) GEN: appears well, in NAD PSYCH: alert and oriented, affect appropriate SKIN: pink, warm and dry HEENT: nose/throat clear, no scleral icterus. CARD: no murmurs, rubs, or gallops RESP: wheezing bilateral, no crackles LYMPH: no cervical or supraclavicular adenopathy. ABDOM: soft, NT/ND, no hepatosplenomegaly, no masses, no scars. No inguinal adenopathy. BACK: no CVA tenderness EXTREM: No edema NEURO: Non-focal. EXAM: The penis is circumcised. Penile and scrotal skin is normal. Left and right testis , epididymis and spermatic cord are normal. There are no hernias. Digital rectal exam demons trates a enlarged prostate, estimated at 50 grams. It is . It is indurated, smooth, and diff usely firm consistent with T3-T4 disease. LABS: Highest PSA 86.19 02/19/14 Recent PSA 22.07 07/09/14 IMAGING: Bone scan 02/21/14- no evidence of bone mets CT 02/21/14-no evidence of mets IMPRESSION: Mr. Garcia is a 49 year old man with GG 4+3 prostate cancer. We discussed the entire spectrum of prostate cancer including early and late, localized and locally-advanced, and metastatic disease. I explained how PSA, Bothell grade and tumor volume on biopsy, and clinical stage is used to assess prognosis and guide optimal management decision-making strategies. We disc ussed his specific situation using his PSA values, biopsy results, and findings on exam. I e xplained the relative chances of cure with the different treatment options available to him including open and robotic-assisted laparoscopic prostatectomy with lymphadenectomy, externa l beam radiotherapy, brachytherapy, cryotherapy, hormonal therapy and active surveillance. I explained what is involved with each of these therapies. We spent the majority of time discussing radical prostatectomy with specific attention to t he robotic-assisted laparoscopic approach. I explained in detail what to expect before, quentin ng and after this treatment including the likelihood and duration of both urinary incontinen ce and erectile dysfunction. I estimated the risk of erectile dysfunction after surgery eddiealberto hay into account his age, present erectile function and likelihood that a nerve-staring proce dure could be performed. I outlined for him what to expect with regard to the urinary cathet er and that driving and physical activity would need to be limited for some time after surge ry. He understands that the risks of radical prostatectomy and lymph node dissection include but are not limited to deep vein thrombosis, kidney failure, , bleeding and the need f or blood transfusion, infection, incontinence, impotence, lymphoceles, obtruator nerve injur y, urine leak, bladder neck contracture, rectal injury, ureteral injury, incomplete resectio n of tumor and the need for additional therapy or reoperation. With robotic surgery he under stands there is a risk of conversion to an open operation. Considering the stage, grade, tumor volume as estimated by biopsy findings and PSA relative to Mr. Garcia's cancer, and his present erectile function (MAURICIO 02/17), if he elects to procee d with robotic prostatectomy, I feel that we should plan a bilateral nerve-sparing procedure . PLAN: 1. Discussed DONALD concerning for more advanced disease. Would recommend a pelvic MRI prior t o making decision regarding surgery versus radiation. He will have that performed today and we will contact with recommendations. I saw and evaluated this patient with Shayy Cottrell NP. I discussed the patient and agree with the findings and plan as documented in the note. COLUMBA KOHLI MD UROLOGY ONCOLOGY [facility] [facility] Mail Code: Ch10u [facility], [address] [facility] [address] documented in this en counter Procedure Notes Curtis Faculty - 07/17/2014 2:15 PM PDTAssociated Order(s): PATHOLOGY documented in this encounter Miscellaneous Notes Scan - Other Faculty - 07/27/2014 1:00 PM PDTElectronically signed by Faculty Other at 1:00 PM PDTScan - Other, Faculty - 07/17/2014 3:10 PM PDT can - Other, Faculty - 07/17/2014 1:04 PM PDTElec tronically signed by Faculty Other at 07/17/2014 1:04 PM PDTScan - Other, Faculty - 014 1:03 PM PDT ddendum No te - Columba Kohli MD - 07/15/2014 2:52 PM PDT Addended by: COLUMBA KOHLI MD on: 07/15 02:52 PM Modules accepted: Orders documented in this [...] + documented in this encounter Results MRI PELVIS [facility] CONTRAST (07/09/2014 6:51 PM PDT) + + + + + + | Component | Value | Ref Range | Performed | Pathologist | | | | | At | Signature | + + + + + + | MR PELVIS | EXAM: MRI Prostate | | | | | [facility] | with/without intravenous | | | | | CONTRAST | contrast. HISTORY: | | | | | | Prostate cancer. | | | | | | COMPARISON: 49-year-old | | | | | | gentleman with high-risk | | | | | | prostate cancer. | | | | | | Bothell 4+3disease in | | | | | | 90-96% volume and May | | | | | | 2013. Highest PSA of 86. | | | | | | TECHNIQUE: | | | | | | Multiplanar MRI of the | | | | | | pelvis was performed. | | | | | | Body/Endorectal coilwas | | | | | | used on a 3T MRI. 10 | | | | | | mL Gadavist IV was | | | | | | administered. FINDINGS: | | | | | | Prostate: Mild BPH. | | | | | | Diffuse confluent | | | | | | abnormal T2, ADC and DCE | | | | | | abnormality. | | | | | | Prostate volume: 4.2 x 3 | | | | | | x 4.5 cm. | | | | | | Post-biopsy hemorrhage: | | | | | | Absent. Lesion | | | | | | volume: Difficult to | | | | | | actually measure because | | | | | | of large | | | | | | volume.Approximate | | | | | | measurements are 3.3 x | | | | | | 1.3 x 3.3 cm. Lesion | | | | | | location: Bilateral | | | | | | apex, bilateral mid | | | | | | gland and left base | | | | | | extendinginto left | | | | | | anterior horn. | | | | | | Extracapsular extension: | | | | | | No evidence. Seminal | | | | | | vesicle invasion: No | | | | | | evidence. Lymph nodes: | | | | | | None enlarged. Bones: No | | | | | | focal lesion seen. | | | | | | Other: Small | | | | | | fat-containing right | | | | | | inguinal hernia. | | | | | | IMPRESSION: Large volume | | | | | | tumor without evidence | | | | | | of extracapsular | | | | | | extension or | | | | | | seminalvesicle invasion. | | | | | | Attending | | | | | | Radiologists: STACY | | | | | | DEANDRE ROCKWELLuthor: STACY | | | | | | MD LULI I have | | | | | | personally viewed this | | | | | | procedure/exam, reviewed | | | | | | this report, and | | | | | | madechanges to it where | | | | | | appropriate. | | | | | | Final/Electronically | | | | | | signed / STACY ROCKWELL | | | | | | 07/10/2014 13:23 PM | | | | + + + + + + + + | Specimen | + + | | + + + +---------+ + + | Performing | Address | City/State/Zipcode | Phone Number | | Organization | | | | + +---------+ + + | [facility] DEPARTMENT OF | | | | | RADIOLOGY | | | | + +---------+ + + PATHOLOGY (02/13/2014 12:00 AM PDT) + + + | Narrative | Performed At | + + + | | | | | | + + + + + | Procedure Note | + + | Analia Acevedo - 07/17/2014 2:15 PM PDT | + + documented in this encounter Visit Diagnoses + + | Diagnosis | + + | Prostate cancer (HCC) - Primary Malignant neoplasm of prostate | + + documented in this encounter"
--- OUTSIDE RECORDS SUMMARY | ~2020-06-06 | XMS | Encounter Summary ---
Demographics + + + | Address | NEED ADDRESS | | | [place] [address] | + + + | Home Phone [...] + | Organization | [facility] | | [...] Hector Garcia | ECON | [place] [address] | | + + + + + Care Team Providers + +------+ + | Care Implementation Manager Name | Role | Phone | + +------+ + | Aryan Grossman MD | PCP | | + +------+ + Reason for Visit +--------+--------+ + | Reason | Onset | Comments | | | Date | | +--------+--------+ + | Other | 02/26/ | TEST RESULTS | | | 2013 | | +--------+--------+ + Encounter Details +--------+ + + + + | Date | Type | Department | Care Team | Description | +--------+ + + + + | 02/26/ | Telephone | [facility] | Zeeshan Sotelo, | Other (TEST RESULTS) | | 2013 | | [address] | MD [address] | | | | | [place] | [place] | | | | | [address] | [address] | | | | | [phone] | | | +--------+ + + + [...] Encounter - Ileana Castillo RN - 02/28/2014 5:[address] S CAN AND BONE SCAN WERE BOTH NEGATIVE PER DR SOTELO. HE IS IN THE PROCESS OF GETTING ESTABLI SHED WITH A UROLOGIST IN [place] AND HE WILL SIGN A RELEASE SO WE CAN FAX OUR RECORDS TO THE . ADVISED TO CALL IF HE HAS ANY FURTHER QUESTIONS OR CONCERNS. elephone Encounter - Zeeshan Sotelo MD - 11/2013 5:55 PM PDTI tried calling patient again twice today, in response to his call. Unf ortunately, he does not answer his phone, and no voicemail is available. Please try calling him again later this week to notify him that his CT scan and bone scan w ere negative. If he wants to leave a phone number and a time that I can reach him when he w ill answer his phone, I will be happy to call him again. elephone Encounter - Rebecca Gagnon - 02/26/2014 8:39 AM PDTHAD A BONE SCAN AND AN MRI LAST WEEK AT [facility] AND WOULD LIKE TO KNOW THE RESULTS. CALL [phone] signed by Rebecca Gagnon at 02/26/2014 8:40 AM PDTdocumen luis armando in this encounter Plan of Treatment Not on filedocumented as of this encounter Visit Diagnoses Not on filedocumented in this encounter"
--- OUTSIDE RECORDS SUMMARY | ~2020-06-06 | XMS | Encounter Summary ---
Demographics + + + | Address | NEED ADDRESS | | | [place] [address] | + + + | Home Phone [...] Hector Garcia | ECON | [place] [address] | | + + + + + Care Team Providers + +------+ + | Care Senior Consumer Insights Consultant Name | Role | Phone | + +------+ + | Loi Frausto PA-C | PCP | | + +------+ + Reason for Visit +--------+--------+ + | Reason | Onset | Comments | | | Date | | +--------+--------+ + | Other | 06/29/ | | | | 2017 | | +--------+--------+ + Encounter Details +--------+ + + + + | Date | Type | Department | Care Team | Description | +--------+ + + + + | 06/29/ | Telephone | [facility] | Maged Albright, | Other | | 2018 | | [facility] | [address] | | | | | ONCOLOGY CLINIC [address] [facility] [place], | | | | | [place] [place] | [place] [address] | | | | | [facility] [place] [address] | [phone] | | | | | [phone] | | | +--------+ + + + [...] this encounter Miscellaneous Notes Telephone Encounter - Madina Snyder - 06/29/2018 10:06 AM PDTMr. Jose will not be able to come tomorrow for his injection. Please call him to reschedule. documented in this encounter Plan of Treatment Not on filedocumented as of this encounter Visit Diagnoses Not on filedocumented in this encounter"
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
--- OUTSIDE RECORDS SUMMARY | ~2020-06-06 | XMS | Encounter Summary ---
Demographics + + + | Address | [address] | | | [place] [facility] [place] [address] | + + + | Home Phone [...] + + + | Author | [facility] | + + + | Organization | [facility] | + + + | Address | Unknown | + + + | Phone | Unavailable | + + + Support + + +---------+ + | Name | Relationship | Address | Phone | + + +---------+ + | Servando Boyer | ECON | Unknown | | + + +---------+ + Care Team Providers + +------+ + | Care Mounter Automatic Name | Role | Phone | + +------+ + | Ayran Grossman MD | PCP | | + +------+ + Encounter Details +--------+ + + + + | Date | Type | Department | Care Team | Description | +--------+ + + + + | 07/18/ | Document-Sc | UNKNOWN DEPARTMENT | Unknown . | | | 2013 | anned | [address] | | | | | | [address] | | | | | | [place], [place] | | | | | | [address] | | | +--------+ + + + [...] this encounter Procedure James Acevedo Faculty - 08/22/2014 10:22 AM PSTAssociated Order(s): RADIOLOGY urtis Faculty - 08/22/2014 9:00 AM PSTAssociat ed Order(s): RADIOLOGY docum ented in this encounter Plan of [...] | + + | Analia Acevedo - 08/22/2014 10:22 AM PST | + + RADIOLOGY (07/18/2014 12:00 AM PDT) + + + | Narrative | Performed At | + + + | | | | | | + + + + + | Procedure Note | + + | Analia Acevedo - 08/22/2014 9:00 AM PST | + + documented in this encounter Visit Diagnoses Not on filedocumented in this encounter"
--- OUTSIDE RECORDS SUMMARY | ~2020-06-06 | XMS | Encounter Summary ---
Demographics + + + | Address | NEED ADDRESS | | | [place] [address] | + + + | Home Phone [...] Hector Garcia | ECON | [place] [address] | | + + + + + Care Team Providers + +------+ + | Care Milling Machine Tender Name | Role | Phone | + +------+ + | Aryan Grossman MD | PCP | | + +------+ + Reason for Visit + +--------+ + | Reason | Onset | Comments | | | Date | | + +--------+ + | ED Follow-up | 12/28/ | | | | 2016 | | + +--------+ + Encounter Details +--------+ + + + + | Date | Type | Department | Care Team | Description | +--------+ + + + + | 12/28/ | Telephone | [facility] | Aryan Grossman, | ED Follow-up | | 2016 | | MEDICINE [address] [place] [address] | [address] | | | | | [address] [place], | [address] [place], | | | | | [place] [address] | [place] [address] | | | | | [phone] | [phone] | | | | | | | [...] this encounter Miscellaneous Notes Telephone Encounter - Sri Elise - 12/29/2015 3:50 PM PDTScheduled for 01/07 (per jojo hirsch transportation issues) P M PDTTelephone Encounter - Loreta Cook CMA - 12/29/2015 3:28 PM PDTPlease scheduled ed follow up for next available appointment Thank you documented in this encounter Plan of Treatment Not on filedocumented as of this encounter Visit Diagnoses Not on filedocumented in this encounter"
--- OUTSIDE RECORDS SUMMARY | ~2020-06-06 | XMS | Encounter Summary ---
Demographics + + + | Address | NEED ADDRESS | | | [place] [address] | + + + | Home Phone [...] Hector Garcia | ECON | [place] [address] | | + + + + + Care Team Providers + +------+ + | Care Train Gate Attendant Name | Role | Phone | + +------+ + | Loi Frausto PA-C | PCP | | + +------+ + Encounter Details +--------+ + + + + | Date | Type | Department | Care Team | Description | +--------+ + + + + | 05/03/ | Abstract | [facility] | Provider, | | | 2019 | | [address] | [address] | | | | | [address] | [address] | | | | | [place], [place] | [place] [address] | | | | | [address] | | | | | | [phone] | | | +--------+ + + + [...]
--- OUTSIDE RECORDS SUMMARY | ~2020-06-06 | XMS | Encounter Summary ---
Demographics + + + | Address | [address] | | | [place] [facility] [place] [address] | + + + | Home Phone [...] + | Author | [facility] | + + + | Organization | [facility] | + + + | Address | Unknown | + + + | Phone | Unavailable | + + + Support + + +---------+ + | Name | Relationship | Address | Phone | + + +---------+ + | Servando Boyre | ECON | Unknown | | + + +---------+ + Care Team Providers + +------+ + | Care Assembly Inspector Name | Role | Phone | + +------+ + | Aryan Grossman MD | PCP | | + +------+ + Reason for Visit + + + | Reason | Comments | + + + | Pre-op evaluation | | + + + Global Period [...] | | | | period | [place] [address] | [address] Phone: | | | | | | Phone: | [phone] | | | | | | [phone] | Fax: | | | | | | Fax: | [phone] | | | | | | [phone] | | +--------+--------+ + + + + Encounter Details +--------+---------+ + + + | Date | Type | Department | Care Team | Description | +--------+---------+ + + + | 07/31/ | Office | [facility]rology at [facility] | Rn, [address] | Malignant neoplasm | | 2014 | Visit | [address] | [address] | of prostate (HCC) | | | | Center for [facility] | Road [facility] [place] | (Primary Dx) | | | | and Healing, | [address] | | | | | Building | | | | | | Floor [place], [place] | | | | | | [address] | | | | | | [phone] | | | +--------+---------+ + + + [...] + + + | Blood Pressure | 120/87 | 07/31/2014 3:02 PM | | | | | PST | | + + + + + | Pulse | 89 | 07/31/2014 3:02 PM | | | | | PST [...] Weight | 93 kg (205 lb) | 07/31/2014 3:02 PM | | | | | PST | | + + + + + | Height | 175.3 cm (5' 9") | 07/31/2014 3:02 PM | | | | | PST | | + + + + + | Body Mass Index | 30.27 | 07/31/2014 3:02 PM | | | | | PST | | + + + + + documented in this encounter Progress Papi Olivas Rn - 07/31/2014 3:59 PM PSTRN Education note: Surgical prep instructions for an AM surgery start time were reviewed with Mr. Garcia and his friend. We also reviewed and discussed information from the open prostatectomy information handout. Mr. Garcia states he is not currently taking aspirin or other blood thinners. Mr. Garcia was given a patient information handout (AVS) regarding his prostatectomy and preo perative preperation. Dr. Kohli is the provider present and available in clinic during the entire visit. On 07/09/14 a full PARQ discussion occurred. A surgical consent was signed at today's visit . Mr. Garcia verbalizes understanding of the instructions and information provided today and reyes s no questions. A total of 15 minutes was spent reviewing the information with Mr. Garcia romelia lui his friend. documented in this encounter Miscellaneous Notes Scan - Other, Faculty - 08/12/2014 6:03 PM PSTElectronically signed by Faculty Other at 6:03 PM PSTScan - Other, Faculty - 08/05/2014 11:31 PM PST can - Other, Faculty - 08/01/2014 10:06 AM PSTElec tronically signed by Faculty Other at 08/01/2014 10:06 AM PSTdocumented in this encounter Plan of Treatment Not on filedocumented as of this encounter Visit Diagnoses + + | Diagnosis | + + | Malignant neoplasm of prostate (HCC) - Primary Malignant neoplasm of prostate | + + documented in this encounter
--- OUTSIDE RECORDS SUMMARY | ~2020-06-06 | XMS | Encounter Summary ---
Demographics + + + | Address | NEED ADDRESS | | | [place] [address] | + + + | Home Phone [...] Hector Garcia | ECON | [place] [address] | | + + + + + Care Team Providers + +------+ + | Care Bend Sorter Name | Role | Phone | + +------+ + | Aryan Grossman MD | PCP | | + +------+ + Encounter Details +--------+ + + + + | Date | Type | Department | Care Team | Description | +--------+ + + + + | 10/15/ | Hospital | [facility] | Johnna Casanova, | | | 2014 | Encounter | [facility] | MD Need updated | | | | | [address] | address | | | | | [place] | | | | | | [address] | | | | | | [phone] | | | +--------+ + + + [...] + | Frank, Rad Results In - 10/15/2014 1:56 PM PST [...] + | MISCELLANEOUS LAB | | | [phone] | + +---------+ + + | MISCELANIOUS LAB | | | [phone] | + +---------+ + + documented in this encounter Visit Diagnoses Not on filedocumented in this encounter"
--- OUTSIDE RECORDS SUMMARY | ~2020-06-06 | XMS | Encounter Summary ---
Demographics + + + | Address | NEED ADDRESS | | | [place] [address] | + + + | Home Phone [...] Hector Garcia | ECON | [place] [address] | | + + + + + Care Team Providers + +------+ + | Care Drapery Worker Name | Role | Phone | + +------+ + | Loi Frausto PA-C | PCP | | + +------+ + Reason for Visit + + + | Reason | Comments | + + + | CPAP Follow Up | Sleep Resource | + + + Encounter Details +--------+ + + + + | Date | Type | Department | Care Team | Description | +--------+ + + + + | 03/06/ | Clinical | [facility] [facility] | Christian Sosa | NAHUN (obstructive | | 2018 | Support | SLEEP DISORDER [address] | MD [address] | sleep apnea) | | | | [address] | [address] [place] | (Primary Dx) | | | | [place] [address] | [place] [address] | | | | | [phone] | [phone] | | | | | | | [...] + + + | Blood Pressure | 120/88 | 03/06/2018 9:01 AM | | | | | PDT | | + + + + + | Pulse | 86 | 03/06/2018 9:01 AM | | | | | PDT | | + + + + + | Temperature | - | - | | + + + + + | Respiratory Rate | 18 | 03/06/2018 9:01 AM | | | | | PDT | | + + + + + | Oxygen Saturation | 97% | 03/06/2018 9:01 AM | | | | | PDT | | + + + + + | Inhaled Oxygen | - | - | | | Concentration | | | | + + + + + | Weight | 87 kg (191 lb 12.8 | 03/06/2018 9:01 AM | | | | oz) | PDT | | + + + + + | Height | 175.3 cm (5' 9") | 03/06/2018 9:01 AM | | | | | PDT | | + + + + + | Body Mass Index | 28.32 | 03/06/2018 9:01 AM | | | | | PDT | | + + + + + documented in this encounter Progress Notes Horacio Tanner, Neurodiagnostic Tech - 03/06/2018 9:00 AM PDTFormatting of this note migh t be different from the original. Clinical Sleep Support Visit Patient:Mani Garcia Date of :1965 Encounter Date: 03/06/2018 Reason for visit: Chief Complaint Patient presents with CPAP Follow Up Sleep Resource Patient was last seen in our clinic on 02/23/[address] Sosa, referred to us by Dr. Carmen grene . PAP was ordered on 02/23/2018 from [facility]. Patient has been using PAP for 2 out of 2 night s, wearing the ResMed S-10 auto PAP with settings of 5 to 15, wearing the P-10 mask. ~ Vital signs were: BP 120/88 | Pulse 86 | Resp 18 | Ht 1.753 m (5' 9") | Wt 87 kg (191 lb 12.8 oz) | SpO2 97% | BMI 28.32 kg/m ~ Patient is doing poor with toleration, he told me upon arrival he was taking it back. "I am not good with noises and lights" We talked about his results and why he needed to wear th e PAP and I did get him to agree to try it for another week. I put him on a desensitization program to learn to wear it, he is in agreement with this and is going to try to wear it dur ing his naps. Mask fit well and application and fit test were good. Although he mentioned he probably had it on upside down - We did cover the correct application procedure. ~ Overall leak is 39.6 ~ Compliance >4 hours =100% with AHI of 8.9 ~ Average daily usage of 4:31 Original date of study was on 12/26/2017 that showed an AHI of 9.4 with a O2 Jose Manuel of 89% wit h 0 minutes < 88%. Sleep hygiene reviewed with the patient included study results, all PAP instructions for us e in detail including humidifier and cleaning. A desensitization program for the next 1 week including wearing the mask during naps. Plan for continuous PAP use: 1. Wear PAP any time you are sleeping 2. Continue with PAP indefinitely 3. Follow up with Papi IRENE in 1 week with equipment Horacio Tanner RPSGT CSE [facility] umented in this encounter Plan of Treatment Not on filedocumented as of this encounter Visit Diagnoses + + | Diagnosis | + + | NAHUN (obstructive sleep apnea) - Primary Obstructive sleep apnea (adult) (pediatric) | + + documented in this encounter
--- OUTSIDE RECORDS SUMMARY | ~2020-06-06 | XMS | Encounter Summary ---
Demographics + + + | Address | [address] | | | [place] [address] | + + + | Home Phone | | + + + | Preferred Language | Unknown | + + + | Marital Status | Single | + + + | Uatsdin Affiliation | CHR | + + + | Race | White | + + + | Ethnic Group | Not or | + + + Author + + + | Author | [facility] | + + + | Organization | [facility] | + + + | Address | Unknown | + + + | Phone | Unavailable | + + + Support + + +---------+ + | Name | Relationship | Address | Phone | + + +---------+ + | Servando Boyer | ECON | Unknown | | + + +---------+ + Care Team Providers + +------+ + | Care Concrete Inspector Name | Role | Phone | [...] | | | | Malignant | Simran Powell, | Simran A, | | | | | neoplasm of | ACNP [address] | ACNP [address] | | | | | prostate | [address] | | | | | Elevated | [facility] | [address] | | | | | prostate | Rd | [place], [place] | | | | | specific | [place], [place] | [address] | | | | | antigen | [address] | Phone: | | | | | (PSA) | Phone: | [phone] | | | | | | [phone] | Fax: | | | | | | Fax: | [phone] | | | | | | [phone] | | +--------+--------+ + + + + Encounter Details +--------+---------+ + + + | Date | Type | Department | Care Team | Description | +--------+---------+ + + + | 06/27/ | Office | Urology at [facility] | Simran Osman, | Prostate cancer | | 2017 | Visit | [address] | ACNP [address] | (HCC) (Primary Dx) | | | | [facility] | [facility] [address] | | | | | and Healing, | [place], [place] | | | | | Building , | [address] | | | | | Floor [place], [place] | [phone] | | | | | [address] | | | | | | [phone] | | | +--------+---------+ + + + [...] + + + | Blood Pressure | 155/110 | 06/27/2017 11:40 AM | | | | | PDT | | + + + + + | Pulse | 111 | 06/27/2017 11:40 AM | | | | | PDT [...] Weight | 85.7 kg (189 lb) | 06/27/2017 11:40 AM | | | | | PDT | | + + + + + | Height | - | - | | + + + + + | Body Mass Index | 27.9 | 08/01/2014 8:19 AM | | | | | PST | | + + + + + documented in this encounter Progress Notes Simran Osman ACNP - 06/27/2017 11:40 AM PDT UROLOGIC ONCOLOGY CLINIC Return Patient Evaluation CC: Biochemical Recurrence of Prostate Cancer HISTORY OF PRESENT ILLNESS: Mr. Mani Garcia is a 52 yo WM with a biochemical recurrence following prostatectomy for prostate cancer. He has a history of [place] 4+3, margin positive, +NAYELY, +SVI, [id number] (0/ 10 nodes) prostate cancer who underwent [...] months at that time. Metastatic work-up with bone scan and CT scan of CAP 12/17/16 (external) showed no evidence o f metastatic disease. He was started on Casdoex on 12/10/16 and a 3 month leuprolide injection on 12/31/16 and 7. He returnrs today for his next 3 month depot. He is tolerating ADT but having several sym ptoms which are difficult on him, these include: fatigue, hot flashes, insomnia, anxiety, po or balance, reduced endurance, ED. His PSA from today is pending. He is having an increase i n bone pain in bilateral hips especially. He is sleeping better since starting amitriptyline 10mg QHS for hot flashes/insomnia. DEXA scan 04/14/17 was normal. He takes [...] also like to stop smoking tobacco. He smok es marijuana which has been helpful with his appetite, which has been poor for several month s. Prostate Cancer History: He was noted to have a diffusely firm and indurated prostate and a psa on 11/30/13 was 75.46. 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 Bone scan (02/21/14)and CT scan (02/21/14) were both negative. On 02/20/14, a repeat psa w as 86.19. He was initially planning XRT in [place], but he was uninsured. He instead started on Casodex. He has not had luperon secondary to cost with no insurance. He was noted to hav e significant lower urinary tract symptoms, and given his young age and symptoms, he is refe rred for prostatectomy. He had an AUA SS of 28. On 05/31/14 his psa was 28. HIs creatinine was 0.79. qianchengwuyou lab: LLB 4+3 90%, LLM 4+3 95%, la 4+3, 96%, RLB 4+3 96%, RLM 4+3 95%, RA 3+4 96% PHYSICAL EXAM: BP 155/110 | Pulse 111 | Wt 85.7 kg (189 lb) | BMI 27.9 kg/(m^2) GEN: appears well, in NAD PSYCH: alert and oriented, affect appropriate SKIN: pink, warm and dry HEENT: nose/throat clear, no scleral icterus EXTREM: No edema NEURO: Non-focal LABS: Outside PSA results: 11.54 ng/ml 11/16/16 3.48 ng/ml 08/25/15 1.74 ng/ml 04/02/15 0.86 ng/ml 12/19/14 Lab Results Component Value Date PSA 3.03 03/28/2017 PSA 0.75 10/01/2014 PSA 22.07 07/09/2014 PATHOLOGY: [...] RRP with BPLND for a GG 4+3 [id number] prostate cancer (08/01/14). PSA at time of diagnosis was 86.19 ng/ml. Metastatic wor k-up was negative pre-operatively. He received no adjuvant or salvage radiotherapy. His PSA was detectable immediately post-op and increased to 11.54 ng/ml (10/2016) with a PSADT of 7 m onths before he was seen back in follow-up. At that point he was beyond the window of teodora ruelas for salvage radiotherapy. Repeat metastatic work-up was negative 12/17/16. He started a ndrogen deprivation therapy (ADT) 12/2016 but after first 3 months the PSA only came down to 3 ng/ml. We are now planning on a full 24 months of ADT before considering intermittent ther apy. He is due for a repeat PSA. He is having symptoms of hypogonadism, but we will check a testosterone to ensure we have achieved a castrate resistant state. He is also having an inc rease in bone pain and I have recommended a repeat metastatic work-up. If this is negative h is pain might be arthralgias related to ADT, but given his high risk disease ruling out met disease first is essential. Reviewed potential risks with ADT and life [...] Urinary Tract Symptoms: Storage symptoms improved on anticholinergic. Tolerating side effects well. Will continue. PLAN: 1. Plan for 2 years of ADT 2. PSA and testosterone today 3. Repeat metastatic work-up with CT CAP and [place] bone scan (external) 4. Leuprolide 3 month depot today 5. Continue Calcium 1500 mg daily (in divided doses such as TUMS 500mg TID) and Vitamin D 2000 IU daily 6. Regular follow-up with PCP for monitoring and management of BP, blood glucose, and lipi ds and to discuss treatment of anxiety and depression 7. Continue amitriptyline 10mg QHS for hot flashes/insomnia 8. Continue Oxybutynin 10mg CR for urgency/frequency A total of more than 40 minutes was spent with the patient today, over 50% of which was spe nt in counseling and coordination of care. MAGDA Trotter Nurse Practitioner Urologic Oncology documented in thi s encounter Plan of Treatment Not on filedocumented as of this encounter Results TESTOSTERONE, SERUM (06/27/2017 12:45 PM PDT) + + + + + + | Component | Value | Ref Range | Performed | Pathologist | | | | | At | Signature | + + + + + + | TESTOSTERON | 21 (L)Comment: Total | 300 - 890 ng/dL | [facility] | | | E, ADULT | testosterone [...] | | | this test in the [facility] | | | | | | Laboratory Test | | | | | | Directory | | | | | | ([employer]).Performed | | | | | | by [employer],[address] | | | | | | [address], [facility] | | | | | | [address] | | | | | | [phone].[employer]. | | | | | | [facility], Elvis Fernandes MD, | | | | [...] [facility] | [address] | [place], [place] | | | [facility] | | [address] | | + + + + + [...] | + + + + + | [facility] | [address] | [place] [address] | | | [facility] | | | | | HEALTH + HEALING | | | | + + + + + documented in this encounter Visit Diagnoses + + | Diagnosis | + + | Prostate cancer (HCC) - Primary Malignant neoplasm of prostate | + + documented in this encounter"
--- OUTSIDE RECORDS SUMMARY | ~2020-06-06 | XMS | Encounter Summary ---
Demographics + + + | Address | NEED ADDRESS | | | [place] [address] | + + + | Home Phone | | + + + | Preferred Language | Unknown | + + + | Marital Status | Single | + + + | Presybeterian Affiliation | Unknown | + + + [...] Hector Garcia | ECON | [place] [address] | | + + + + + Care Team Providers + +------+ + | Care Medical Transcription Editor Name | Role | Phone | + +------+ + | No, Physician | PCP | Unavailable | + +------+ + Reason for Referral Evaluate & Treat (Routine) +--------+ + + + + + | Status | Reason | Specialty | Diagnoses / | Referred By | Referred To | | | | | Procedures | Contact | Contact | +--------+ + + + + + | Closed | Specialty | Internal | Diagnoses | Valente, | [facility] | | | Services | Medicine | Alopecia | Lysle | Internal | | | Required | | areata | Inocente Leavitt, | Medicine [address] | | | | | Hypertension | MD [address] | | | | | | [address] | [place], | | | | | | [place] | [place] [address] | | | | | | [place], [place] | Phone: | | | | | | [address] | [phone] | | | | | | Phone: | Fax: | | | | | | [phone] | [phone] | | | | | | Fax: | | | | | | | [phone] | | +--------+ + + + + + Reason for Visit + + + | Reason | Comments | + + + | Hair/Scalp Problem | rm 2 x 3wks | + + + | Joint Pain | | + + + Encounter Details +--------+---------+ + + + | Date | Type | Department | Care Team | Description | +--------+---------+ + + + | 11/05/ | Office | [facility] | Oswaldo Victor | Alopecia areata | | 2013 | Visit | CARE [address] | Inocente Leavitt MD | (Primary Dx); | | | | [place], [place] | [address] | Hypertension | | | | [address] | [place], [place] | | | | | [phone] | [address] | | | | | | | [...] + + + | Blood Pressure | 155/107 | 11/05/2013 1:41 PM | | | | | PST | | + + + + + | Pulse | 99 | 11/05/2013 1:41 PM | | | | | PST | | + + + + + | Temperature | 36.7 C (98 F) | 11/05/2013 1:41 PM | | | | | PST | | + + + + + | Respiratory Rate | - | - | | + + + + + | Oxygen Saturation | 98% | 11/05/2013 1:41 PM | | | | | PST | | + + + + + | Inhaled Oxygen | - | - | | | Concentration | | | | + + + + + | Weight | 90.7 kg (200 lb) | 11/05/2013 1:41 PM | | | | | PST | | + + + + + | Height | 175.3 cm (5' 9") | 11/05/2013 1:41 PM | | | | | PST | | + + + + + | Body Mass Index | 29.53 | 11/05/2013 1:41 PM | | | | | PST | | + + + + + documented in this encounter Patient Instructions Patient Instructions Oswaldo Victor Jr., MD - 11/05/2013 2:18 PM PSTFollow-up wit h internal medicine for blood pressure and hair loss Use medication as directed Call for blood test results in 4 days documented in this encounter Progress Notes Mame, Mireya Damico MA - 11/05/2013 2:[address] Grossman 11/12/13 at 1000 check in at 950 Oswaldo Diego Jr., MD - 11/05/2013 2:25 PM PSTMani Garcia Presents with a three-week history of pat adri hair loss starting out in the left parietal area. Large clumps of hair fall out in a ro ughly circular distribution resulting in over 50% of his scalp hair being gone and he has sh aved the rest. He has never had a problem like this before. He denies any new foods produc ts or medications. He has never had any thyroid trouble. He has been under stress. He has a history of high blood pressure but quit his medicines voluntarily last summer. Physical exam: No acute distress Scalp: Scalp has been shaved, he has Multiple roughly circular areas of complete hair loss with evidence of inflammation(mild erythema) resulting in about 50% of his hair being gone, he has shaved the rest Chest: Good breath sounds bilaterally, no rales rhonchi or wheezes Heart: Regular rhythm without murmur gallop or rub Abdomen: Soft bowel sounds present, no hepatosplenomegaly, no tenderness Neck: Thyroid not enlarged or tender Joints: no erythema or effusion Diagnosis: Alopecia areata Plan: Thyroid globulin antibody, thyroid peroxidase antibody, sed rate, RPR - call in 4 day s, make appointment with internal medicine for followup on alopecia areata and blood pressur e documente d in this encounter Plan of Treatment + + +--------+ + + | Name | Type | Priori | Associated Diagnoses | Order Schedule | | | | ty | | | + + +--------+ + + | * [facility] | Outpatient | Routin | Alopecia areata | Ordered: 11/05/2013 | | Medicine - AMB | Referral | e | Hypertension | | | Referral | | | | | + + +--------+ + + documented as of this encounter Results Rapid Plasma Reagin, Qual (11/05/2013 2:51 PM PST) + + + + + + | Component | Value | Ref Range | Performed | Pathologist | | | | | At | Signature | + + + + + + | Treponema | NON-REACT | NON-REACT | [facility] | | | Pallidum Ab | | | [facility] | | | RPR, Qual | | [...] + | [facility] | [address] | [place], [place] | [phone] | | [facility] | | [address] | | | - LABORATORY | | | | + + + + + | [facility] | [address] | [place] | | | [facility] | | [id number] | | | - LABORATORY [...] + | [facility] | [address] | [place], [place] | [phone] | | [facility] | | [address] | | | - LABORATORY | | | | + + + + + | [facility] | [address] | [place], [place] | | | [facility] | | [address] | | | - LABORATORY [...] | in Ab | | | [facility] | | [...] | | MEDICAL | | | | [id number]: [id number] | | CENTER - | | | [...] + | [facility] | [address] | [place], [place] | [phone] | | [facility] | | [address] | | | - LABORATORY | | | | + + + + + | [facility] | [address] | [place], [place] | | | [facility] | | [address], [facility] | | | - LABORATORY | | | | + + + + + documented in this encounter Visit Diagnoses + + | Diagnosis | + + | Alopecia areata - Primary | + + | Hypertension Unspecified essential hypertension | + + documented in this encounter
--- OUTSIDE RECORDS SUMMARY | ~2020-06-06 | XMS | Encounter Summary ---
Demographics + + + | Address | NEED ADDRESS | | | [place] [address] | + + + | Home Phone [...] Author + + + | Author | [facility] | | | and [place] | + + + | Organization | [facility] | | [...] Hector Garcia | ECON | [place] [address] | | + + + + + Care Team Providers + +------+ + | Care Account Executive Metalworking Name | Role | Phone | + +------+ + | Loi Frausto PA-C | PCP | | + +------+ + Reason for Visit + + + | Reason | Comments | + + + | Pre-op Exam | PREOP LEFT CARPAL TUNNEL RELEASE DOS: 03/10/2018 | + + + Encounter Details +--------+---------+ + + + | Date | Type | Department | Care Team | Description | +--------+---------+ + + + | 03/06/ | Office | [facility] | Remberto Hurst, | Carpal tunnel | | 2017 | Visit | ORTHOPEDIC SURGERY | MD Grace CHAPIN | syndrome of left | | | | [address] | [place] | wrist (Primary Dx); | | | | [place] | [address] | Preop testing; Pain | | | | [address] | | in left hand | | | | [phone] | | | +--------+---------+ + + + [...] + + + | Blood Pressure | 146/94 | 03/06/2018 1:24 PM | | | | | PDT | | + + + + + | Pulse | 110 | 03/06/2018 1:24 PM | | | | | PDT | | + + + + + | Temperature | 36.6 C (97.9 F) | 03/06/2018 1:24 PM | | | [...] Weight | 86.6 kg (191 lb) | 03/06/2018 1:24 PM | | | | | PDT | | + + + + + | Height | 175.3 cm (5' 9") | 03/06/2018 1:24 PM | | | | | PDT | | + + + + + | Body Mass Index | 28.21 | 03/06/2018 1:24 PM | | | | | PDT | | + + + + + documented in this encounter Progress Notes Remberto Hurst MD - 03/06/2018 2:00 PM PDTPatient returns for preop left carpal tunnel r elease We again went over the details of the operation with the inherent risks and reasonable expe ctations for recovery All questions answered History and physical to follow 2: 27 PM PDTdocumented in this encounter Plan of Treatment Not on filedocumented as of this encounter Procedures + +--------+ + + + | Procedure Name | Priori | Date/Time | Associated Diagnosis | Comments | | | ty | | | | + +--------+ + + + | ECG 12 LEAD | Routin | 03/06/2018 | Preop testing | Results for this | | | e | 2:13 PM | Carpal tunnel | procedure are in the | | | | PDT | syndrome of left | results section. | | | | | wrist Pain in left | | | | | | hand | | + +--------+ + + + documented in this encounter Results Basic Metabolic Panel (03/06/2018 2:21 PM PDT) + + + + + [...] + + + + | Cl | 96 (L) | 98 - 109 mmol/L | [facility] [...] + + + + | Glucose | 104 | 70 - 109 mg/dL | [facility] [...] + + + + | Creatinine | 1.01 | 0.60 - 1.30 | [facility] | | | | | mg/dL | [facility] | | | | | | MEDICAL | | | | | | CENTER - | | | | | | LABORATORY | | + + + + + + | eGFR, | >60Comment: GLOMERULAR | >=60 | [facility] | | | non- | FILTRATION | mL/min/1.73m2 | [facility] | | | Cymraes | RATE,ESTIMATED | | MEDICAL | | | | mL/min/1.83f6Qvxg than | | CENTER - | | [...] + + + + | Calcium | 9.2 | 8.3 - 10.5 | [facility] | | | | | mg/dL | [facility] | | | | | | MEDICAL | | | | | | CENTER - | | | | | | LABORATORY | | + + + + + + | BUN/Creatin | 22.8 | | [facility] | | | ine [...] + | [facility] | [address] | [place] | [phone] | | [facility] | | [address] | | | - LABORATORY | | | | + + + + + Hemoglobin (03/06/2018 2:21 PM PDT) + +-------+ + + + | Component | Value | Ref Range | Performed | Pathologist | | | | | At | Signature | + +-------+ + + + | Hemoglobin | 15.3 | 13.5 - 18.0 | [facility] | | | | | g/dL | [facility] | | | | | | [...] + | [facility] | [address] | [place] | [phone] | | [facility] | | [address] | | | - LABORATORY | | | | + + + + + ECG 12 lead (03/06/2018 2:13 PM PDT) + + + + + + | Component | Value | Ref Range | Performed | Pathologist | | | | | At | Signature | + + + + + + | VENTRICULAR | 99 | BPM | [facility] | | | RATE EKG | | | | | + + + + + + | ATRIAL RATE | 99 | BPM | [facility] | | + + + + + + | P-R | 164 | ms | [facility] | | | INTERVAL | | | | | + + + + + + | QRS | 116 | ms | [facility] | | | DURATION | | | | | + + + + + + | Q-T | 386 | ms | [facility] | | | INTERVAL | | | | | + + + + + + | Q-T | 495 | ms | [facility] | | | INTERVAL | | | | | | (CORRECTED) | | | | | + + + + + + | P WAVE AXIS | 39 | degrees | [facility] | | + + + + + + | QRS AXIS | -8 | degrees | [facility] | | + + + + + + | T AXIS | 27 | degrees | [facility] | | + + + + + + | INTERPRETAT | Normal sinus rhythmLong | | [facility] | | | ION TEXT | QTcPossible Left atrial | | | | | | enlargementIncomplete | | | | | | right bundle branch | | | | | | blockPossible Inferior | | | | | | infarct , age | | | | | | undeterminedAbnormal | | | | | | ECGNo previous ECGs | | | | | | availableConfirmed by | | | | | | PENNY KRAUS MD ([id number]) | | | | | | on 03/06/2018 7:02:54 PM | | | | + + [...] Carpal tunnel syndrome | + + | Preop testing Preoperative examination, unspecified | + + | Pain in left hand | + + documented in this encounter
--- OUTSIDE RECORDS SUMMARY | ~2020-06-06 | XMS | Encounter Summary ---
Demographics + + + | Address | NEED ADDRESS | | | [place] [address] | + + + | Home Phone | | + + + | Preferred Language | Unknown | + + + | Marital Status | Single | + + + | Jehovah'S Witness Affiliation | Unknown | + + + [...] Hector Garcia | ECON | [place] [address] | | + + + + + Care Team Providers + +------+ + | Care Software Firmware Engineer Name | Role | Phone | + +------+ + | Aryan Grossman MD | PCP | | + +------+ + Encounter Details +--------+ + + + + | Date | Type | Department | Care Team | Description | +--------+ + + + + | 05/31/ | Hospital | [facility] | Aryan Grossman, | Osteoarthritis | | 2014 | Encounter | [facility] | MD [address] | | | | | [address] [place] | [address] [place], | | | | | [place], [place] | [place] [address] | | | | | [address] | [phone] | | | | | [phone] | | | +--------+ + + + [...] documented as of this encounter Progress Notes Aryan Grossman MD - 06/04/2014 5:01 PM PDT Quick Note: Studies are abnormal, Please schedule and appointment within a month to discuss. documented in thi s encounter Plan of Treatment Not on filedocumented as of this encounter Procedures + +--------+ + + + | Procedure Name | Priori | Date/Time | Associated Diagnosis | Comments | | | ty | | | | + +--------+ + + + | XR HAND RIGHT 3 + VW | Routin | 05/31/2014 | Osteoarthritis | Results for this | | | e | 11:12 AM | | procedure are in the | | | | PDT | | results section. | + +--------+ + + + | XR HAND LEFT 3 + VW | Routin | 05/31/2014 | Osteoarthritis | Results for this | | | e | 11:12 AM | | procedure are in the | | | | PDT | | results section. | + +--------+ + + + | XR WRIST LEFT 3 + VW | Routin | 05/31/2014 | Osteoarthritis | Results for this | | | e | 11:12 AM | | procedure are in the | | | | PDT | | results section. | + +--------+ + + + documented in this encounter Results XR Hand Left 3 + Vw (05/31/2014 11:12 AM PDT) + + | Specimen | + + | | + + + + + | Narrative | Performed At | + + + | FOUR VIEWS BILATERAL HANDS 05/31/2014 11:12 AM CLINICAL HISTORY: | MISCELANIOUS | | pain COMPARISON: LEFT WRIST RADIOGRAPHS FROM THE SAME DAY | LAB | | FINDINGS: Two fusion screws are present in the right wrist, bridging | | | the articulation of the scaphoid with the trapezoid and also | | | projecting through the trapezium and its articulation with the | | | scaphoid, although the screw appears to only minimally extend into | | | the distal pole of the scaphoid. Joint spaces remain visible at | | | these levels. The bones are well-mineralized and well aligned, | | | without evident fracture, dislocation or erosion. The first carpal | | | metacarpal joints are moderate to severely narrowed bilaterally, with | | | associated subchondral sclerosis and cystic change. The | | | articulation of the left scaphoid with the distal carpal row is | | | severely narrowed and demonstrates similar degenerative changes. | | | Chondrocalcinosis is suggested at the level of the TFCC | | | bilaterally. Joint spaces of the hands and wrists otherwise appear | | | maintained. No soft tissue abnormality is visible. IMPRESSION - | | | 1. MODERATE TO SEVERE DEGENERATION OF THE FIRST CARPOMETACARPAL | | | JOINTS AND ARTICULATION OF THE LEFT SCAPHOID WITH THE DISTAL CARPAL | | | ROW DESCRIBED. 2. FUSION HARDWARE INVOLVING THE ARTICULATION | | | OF THE RIGHT SCAPHOID WITH THE DISTAL CARPAL ROW DISCUSSED. 3. | | | CHONDROCALCINOSIS. Dictated and Signed by: Ranjith Saini MD | | | Electronically signed: 05/31/2014 2:40 PM | | + + + + + | Procedure Note | + + | Frank, Rad Results In - 05/31/2014 2:43 PM PDT FOUR VIEWS BILATERAL HANDS 05/31/2014 | | 11:12 AMCLINICAL HISTORY: painCOMPARISON: LEFT WRIST RADIOGRAPHS FROM THE SAME | | DAYFINDINGS: Two fusion screws are present in the right wrist, bridging thearticulation | | of the scaphoid with the trapezoid and also projecting through thetrapezium and its | | articulation with the scaphoid, although the screw appears toonly minimally extend into | | the distal pole of the scaphoid. Joint spaces remainvisible at these levels. The bones | | are well-mineralized and well aligned,without evident fracture, dislocation or erosion. | | The first carpal metacarpaljoints are moderate to severely narrowed bilaterally, with | | associatedsubchondral sclerosis and cystic change. The articulation of the left | | scaphoidwith the distal carpal row is severely narrowed and demonstrates | | similardegenerative changes. Chondrocalcinosis is suggested at the level of the | | TFCCbilaterally. Joint spaces of the hands and wrists otherwise appear maintained. No | | soft tissue abnormality is visible.IMPRESSION -1. MODERATE TO SEVERE DEGENERATION OF | | THE FIRST CARPOMETACARPAL JOINTS ANDARTICULATION OF THE LEFT SCAPHOID WITH THE DISTAL | | CARPAL ROW DESCRIBED.2. FUSION HARDWARE INVOLVING THE ARTICULATION OF THE RIGHT | | SCAPHOID WITH THEDISTAL CARPAL ROW DISCUSSED.3. CHONDROCALCINOSIS.Dictated and | | Signed by: Ranjith Saini MD Electronically signed: 05/31/2014 2:40 PM | |No soft tissue abnormality is visible. | | | |IMPRESSION - | |1. MODERATE TO SEVERE DEGENERATION OF THE FIRST CARPOMETACARPAL JOINTS AND | |ARTICULATION OF THE LEFT SCAPHOID WITH THE DISTAL CARPAL ROW DESCRIBED. | | | |2. FUSION HARDWARE INVOLVING THE ARTICULATION OF THE RIGHT SCAPHOID WITH THE | |DISTAL CARPAL ROW DISCUSSED. | | | |3. CHONDROCALCINOSIS. | | | |Dictated and Signed by: Ranjith Saini MD | | Electronically signed: 05/31/2014 2:40 PM | + + + +---------+ + + | Performing | Address | City/State/Zipcode | Phone Number | | Organization | | | | + +---------+ + + | [facility] | | | [phone] | + +---------+ + + | [facility] | | | [phone] | + +---------+ + + XR Hand Right 3 + Vw (05/31/2014 11:12 AM PDT) + + | Specimen | + + | | + + + + + | Narrative | Performed At | + + + | FOUR VIEWS BILATERAL HANDS 05/31/2014 11:12 AM CLINICAL HISTORY: | MISCELANIOUS | | pain COMPARISON: LEFT WRIST RADIOGRAPHS FROM THE SAME DAY | LAB | | FINDINGS: Two fusion screws are present in the right wrist, bridging | | | the articulation of the scaphoid with the trapezoid and also | | | projecting through the trapezium and its articulation with the | | | scaphoid, although the screw appears to only minimally extend into | | | the distal pole of the scaphoid. Joint spaces remain visible at | | | these levels. The bones are well-mineralized and well aligned, | | | without evident fracture, dislocation or erosion. The first carpal | | | metacarpal joints are moderate to severely narrowed bilaterally, with | | | associated subchondral sclerosis and cystic change. The | | | articulation of the left scaphoid with the distal carpal row is | | | severely narrowed and demonstrates similar degenerative changes. | | | Chondrocalcinosis is suggested at the level of the TFCC | | | bilaterally. Joint spaces of the hands and wrists otherwise appear | | | maintained. No soft tissue abnormality is visible. IMPRESSION - | | | 1. MODERATE TO SEVERE DEGENERATION OF THE FIRST CARPOMETACARPAL | | | JOINTS AND ARTICULATION OF THE LEFT SCAPHOID WITH THE DISTAL CARPAL | | | ROW DESCRIBED. 2. FUSION HARDWARE INVOLVING THE ARTICULATION | | | OF THE RIGHT SCAPHOID WITH THE DISTAL CARPAL ROW DISCUSSED. 3. | | | CHONDROCALCINOSIS. Dictated and Signed by: Ranjith Saini MD | | | Electronically signed: 05/31/2014 2:40 PM | | + + + + + | Procedure Note | + + | Frank, Rad Results In - 05/31/2014 2:43 PM PDT FOUR VIEWS BILATERAL HANDS 05/31/2014 | | 11:12 AMCLINICAL HISTORY: painCOMPARISON: LEFT WRIST RADIOGRAPHS FROM THE SAME | | DAYFINDINGS: Two fusion screws are present in the right wrist, bridging thearticulation | | of the scaphoid with the trapezoid and also projecting through thetrapezium and its | | articulation with the scaphoid, although the screw appears toonly minimally extend into | | the distal pole of the scaphoid. Joint spaces remainvisible at these levels. The bones | | are well-mineralized and well aligned,without evident fracture, dislocation or erosion. | | The first carpal metacarpaljoints are moderate to severely narrowed bilaterally, with | | associatedsubchondral sclerosis and cystic change. The articulation of the left | | scaphoidwith the distal carpal row is severely narrowed and demonstrates | | similardegenerative changes. Chondrocalcinosis is suggested at the level of the | | TFCCbilaterally. Joint spaces of the hands and wrists otherwise appear maintained. No | | soft tissue abnormality is visible.IMPRESSION -1. MODERATE TO SEVERE DEGENERATION OF | | THE FIRST CARPOMETACARPAL JOINTS ANDARTICULATION OF THE LEFT SCAPHOID WITH THE DISTAL | | CARPAL ROW DESCRIBED.2. FUSION HARDWARE INVOLVING THE ARTICULATION OF THE RIGHT | | SCAPHOID WITH THEDISTAL CARPAL ROW DISCUSSED.3. CHONDROCALCINOSIS.Dictated and | | Signed by: Ranjith Saini MD Electronically signed: 05/31/2014 2:40 PM | |No soft tissue abnormality is visible. | | | |IMPRESSION - | |1. MODERATE TO SEVERE DEGENERATION OF THE FIRST CARPOMETACARPAL JOINTS AND | |ARTICULATION OF THE LEFT SCAPHOID WITH THE DISTAL CARPAL ROW DESCRIBED. | | | |2. FUSION HARDWARE INVOLVING THE ARTICULATION OF THE RIGHT SCAPHOID WITH THE | |DISTAL CARPAL ROW DISCUSSED. | | | |3. CHONDROCALCINOSIS. | | | |Dictated and Signed by: Ranjith Saini MD | | Electronically signed: 05/31/2014 2:40 PM | + + + +---------+ + + | Performing | Address | City/State/Zipcode | Phone Number | | Organization | | | | + +---------+ + + | [facility] | | | [phone] | + +---------+ + + | [facility] | | | [phone] | + +---------+ + + XR Wrist Left 3 + Vw (05/31/2014 11:12 AM PDT) + + | Specimen | + + | | + + + + + | Narrative | Performed At | + + + | THREE VIEWS LEFT WRIST 05/31/2014 11:12 AM CLINICAL HISTORY: | MISCELANIOUS | | pain COMPARISON: HAND RADIOGRAPHS FROM THE SAME DAY FINDINGS: | LAB | | The bones are well mineralized and well aligned. No fracture or | | | dislocation is suspected. The articulations of the scaphoid with the | | | distal carpal row and first carpometacarpal joint are moderate to | | | severely narrowed and demonstrate subchondral sclerosis, marginal | | | osteophyte formation and subchondral cystic change. Joint spaces of | | | the wrist are otherwise maintained. Chondrocalcinosis is present at | | | the level of the TFCC. Soft tissue structures are otherwise | | | unremarkable. IMPRESSION - 1. MODERATE TO SEVERE | | | OSTEOARTHRITIC TYPE CHANGES OF THE FIRST CARPOMETACARPAL JOINT AND | | | ARTICULATION OF THE SCAPHOID WITH THE DISTAL CARPAL ROW. 2. | | | CHONDROCALCINOSIS. Dictated and Signed by: Ranjith Saini MD | | | Electronically signed: 05/31/2014 3:22 PM | | + + + + + | Procedure Note | + + | Frank, Rad Results In - 05/31/2014 3:25 PM PDT THREE VIEWS LEFT WRIST 05/31/2014 11:12 | | AMCLINICAL HISTORY: painCOMPARISON: HAND RADIOGRAPHS FROM THE SAME DAYFINDINGS: The | | bones are well mineralized and well aligned. No fracture ordislocation is suspected. | | The articulations of the scaphoid with the distalcarpal row and first carpometacarpal | | joint are moderate to severely narrowed anddemonstrate subchondral sclerosis, marginal | | osteophyte formation and subchondralcystic change. Joint spaces of the wrist are | | otherwise maintained. Chondrocalcinosis is present at the level of the TFCC. Soft | | tissue structuresare otherwise unremarkable.IMPRESSION -1. MODERATE TO SEVERE | | OSTEOARTHRITIC TYPE CHANGES OF THE FIRST CARPOMETACARPALJOINT AND ARTICULATION OF THE | | SCAPHOID WITH THE DISTAL CARPAL ROW.2. CHONDROCALCINOSIS.Dictated and Signed by: Ranjith | | MD Parveen Electronically signed: 05/31/2014 3:22 PM | |Chondrocalcinosis is present at the level of the TFCC. Soft tissue structures | |are otherwise unremarkable. | | | |IMPRESSION - | |1. MODERATE TO SEVERE OSTEOARTHRITIC TYPE CHANGES OF THE FIRST CARPOMETACARPAL | |JOINT AND ARTICULATION OF THE SCAPHOID WITH THE DISTAL CARPAL ROW. | | | |2. CHONDROCALCINOSIS. | | | |Dictated and Signed by: Ranjith Saini MD | | Electronically signed: 05/31/2014 3:22 PM | + + + +---------+ + + | Performing | Address | City/State/Zipcode | Phone Number | | Organization | | | | + +---------+ + + | [facility] | | | [phone] | + +---------+ + + | [facility] | | | [phone] | + +---------+ + + documented in this encounter Visit Diagnoses + + | Diagnosis | + + | Osteoarthritis Osteoarthrosis, unspecified whether generalized or localized, | | unspecified site | + + documented in this encounter"
--- OUTSIDE RECORDS SUMMARY | ~2020-06-06 | XMS | Encounter Summary ---
Demographics + + + | Address | NEED ADDRESS | | | [place] [address] | + + + | Home Phone [...] Hector Garcia | ECON | [place] [address] | | + + + + + Care Team Providers + +------+ + | Care Field Application Engineer Name | Role | Phone | + +------+ + | Loi Frausto PA-C | PCP | | + +------+ + Reason for Visit +---------+--------+ + | Reason | Onset | Comments | | | Date | | +---------+--------+ + | Results | 10/31/ | | | | 2018 | | +---------+--------+ + Encounter Details +--------+ + + + + | Date | Type | Department | Care Team | Description | +--------+ + + + + | 10/31/ | Telephone | [facility] | Antony Grider, | Results | | 2018 | | PHYSIATRY [address] | MD [address] | | | | | [address] | [place] | | | | | [place] | [id number] | | | | | [address] | | | | | | [phone] | | | +--------+ + + + [...] this encounter Miscellaneous Notes Telephone Encounter - Abigail Patel RN - 10/31/2017 3:47 PM PSTPatient called and give n results. elephone Encounter - Abigail Patel RN - 10/31/2017 3:46 PM PST----- Message from Antony Grider MD sent at 10/31/2017 13:18 PST ----- Abigail, Please let Mani Garcia know that I have reviewed 2 hour GTT results. The results are n ormal with no evidence of diabetes. Thank you, Antony Grider MD (.) ----- Message ----- From: Lab, Background User Sent: 10/31/2017 8:47 To: Antony Grider MD documented in this e ncounter Plan of Treatment Not on filedocumented as of this encounter Visit Diagnoses Not on filedocumented in this encounter"
--- OUTSIDE RECORDS SUMMARY | ~2020-06-06 | XMS | Encounter Summary ---
Demographics + + + | Address | NEED ADDRESS | | | [place] [address] | + + + | Home Phone [...] Hector Garcia | ECON | [place] [address] | | + + + + + Care Team Providers + +------+ + | Care Psychiatric Clinical Nurse Specialist Name | Role | Phone | + +------+ + | Aryan Grossman MD | PCP | | + +------+ + Reason for Visit + + + | Reason | Comments | + + + | Prostate Cancer | [place] with Shruthi 06/20/14 | + + + | Depression | and anxiety | + + + Encounter Details +--------+---------+ + + + | Date | Type | Department | Care Team | Description | +--------+---------+ + + + | 05/31/ | Office | [facility] | Aryan Grossman, | Prostate cancer | | 2013 | Visit | [address] | [address] | (HCC) (Primary Dx); | | | | [address] [place], | [address] [place], | Nicotine addiction; | | | | [place] [address] | [place] [address] | Stress reaction; | | | | [phone] | [phone] | Depression; | | | | | | Osteoarthritis; HTN | | | | | | (hypertension) | +--------+---------+ + + + Social History [...] + + + | Blood Pressure | 110/80 | 05/31/2014 9:48 AM | | | | | PDT | | + + + + + | Pulse | 92 | 05/31/2014 9:48 AM | | | | | PDT | | + + + + + | Temperature | 36.6 C (97.9 F) | 05/31/2014 9:48 AM | | | | | PDT | | + + + + + | Respiratory Rate | 14 | 05/31/2014 9:48 AM | | | | | PDT | | + + + + + | Oxygen Saturation | 97% | 05/31/2014 9:48 AM | | | | | PDT | | + + + + + | Inhaled Oxygen | - | - | | | Concentration | | | | + + + + + | Weight | 92.5 kg (204 lb) | 05/31/2014 9:48 AM | | | | | PDT | | + + + + + | Height | 175.3 cm (5' 9") | 05/31/2014 9:48 AM | | | | | PDT | | + + + + + | Body Mass Index | 30.13 | 05/31/2014 9:48 AM | | | | | PDT | | + + + + + documented in this encounter Progress Notes Aryan Grossman MD - 05/31/2014 10:17 AM PDTFormatting of this note might be different f rom the original. Subjective: Patient ID: Mani Garcia is a 49 y.o. male. HPI Prostate cancer, He has followed with Dr Hawkins in the past and is now back in the [facility] where he did not have any substantial treatment. He has an upcoming appointment [facility] Dr Hawkins. He has no energy, poor sleep etc. His urine flow is adequate. Arthralgias, Ankles, knees, Hands wrists, shoulders elbows and back. He is still smoking a 1/2 ppd. Shoulders ankles and knees seem to bother him the worst. He is not taking an antiinflammat ory for it. Depression and Anxiety, He is worried all the time about something. He had loss of motiva tion. Fatigue. Moodiness, Some crying. Guilt. Denies HI or SI. He took the lexapro in the past but him dizzy. He has quit drinking. 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 PMH: HTN Hyperlipidemia Alcoholism PSH: Right thumb 2008 Lumbar Diskectomy 1992 Fhx: Mom 64 Ovarian Cancer Dad 50 of MS complications Sister 54, recurrent lymphoma,. 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 [place] Drinks 5 drinks of [...] gross lesions Assessment: 1. Prostate cancer (HCC) PSA, Diagnostic 2. Nicotine addiction 3. Stress reaction 4. Depression 5. Osteoarthritis naproxen (NAPROSYN) 500 mg tablet 6. HTN (hypertension) Plan: Zoloft trial, Repeat PSA. He will see Kristine Pro. RTC 6 weeks. documented in this encounter Plan of Treatment Not on filedocumented as of this encounter Results Urinalysis with Microscopic if Indicated (12/19/2014 11:52 [...] - 1.030 | [facility] | | | [place], | | | [facility] | | [...] n, Urine | | 1.0 E.U./dL | [facility] | | | | [...] [address] | [place] | [phone] | | [facility] | | [address] | | | - LABORATORY | | | | + + + + + XR Wrist Left 3 + [...] + | [facility] | | | [phone] | + +---------+ + + | [facility] | | | [phone] | + +---------+ + + Comprehensive Metabolic Panel (05/31/2014 10:59 AM PDT) [...] | mL/min/1.73m2 | [facility] | | | [place]ian | RATE,ESTIMATED | | MEDICAL | | | | mL/min/1.68p3Txrq than | | CENTER - | | [...] 4.2 | 3.2 - 5.0 g/dL | Y[facility]AN [...] + | [facility] | [address] | [place], [place] | [phone] | | [facility] | | [address] | | | - LABORATORY | | | | + + + + + | [facility] | [address] | [place], [place] | | | [facility] | | [address], [facility] | [...] | | Cells | | M/uL | . [facility] | | | | [...] + | [facility] | [address] | [place] | [phone] | | [facility] | | [address] | | | - LABORATORY | | | | + + + + + | [facility] | [address] | [place] | | | [facility] | | [email or web address] | | | - LABORATORY | | | | + + + + + PSA, Diagnostic (05/31/2014 10:59 AM PDT) + + + + + + | Component | Value | Ref Range | Performed | Pathologist | | | | | At | Signature | + + + + + + | PSA | 20.94 (H) | <=4.00 ng/mL | [facility] | | | | | | [facility] [...] + | [facility] | [address] | [place] | [phone] | | [facility] | | [address] | | | - LABORATORY | | | | + + + + + | [facility] | [address] | [place], [place] | | | [facility] | | [id number] [[email or web address] | | | - LABORATORY | | | | + + + + + documented in this encounter Visit Diagnoses + + | Diagnosis | + + | Prostate cancer (HCC) - Primary Malignant neoplasm of prostate | + + | Nicotine addiction Tobacco use disorder | + + | Stress reaction Other acute reactions to stress | + + | Depression Depressive disorder, not elsewhere classified | + + | Osteoarthritis Osteoarthrosis, unspecified whether generalized or localized, | | unspecified site | + + | HTN (hypertension) Unspecified essential hypertension | + + documented in this encounter
--- OUTSIDE RECORDS SUMMARY | ~2020-06-06 | XMS | Encounter Summary ---
Demographics + + + | Address | NEED ADDRESS | | | [place] [address] | + + + | Home Phone [...] Hector Garcia | ECON | [place] [address] | | + + + + + Care Team Providers + +------+ + | Care Agricultural Engineering Technicians Name | Role | Phone | + +------+ + PCP | Unavailable | + +------+ + Encounter Details +--------+ + + + + | Date | Type | Department | Care Team | Description | +--------+ + + + + | 05/24/ | Emergency | [facility] | Jerrod Smithy Claudia, | Encounter for Other | | 2005 | | MEDICAL CENTER | [place] [address] | Specified Aftercare | | | | EMERGENCY CENTER | [place] [address] | | | | | [address] | [phone] | | | | | [place], [place] | | | | | | [address] | | | | | | [phone] | | | +--------+ + + + [...] + | Diagnosis | + + | Encounter for other specified aftercare | + + documented in this encounter"
--- OUTSIDE RECORDS SUMMARY | ~2020-06-06 | XMS | Encounter Summary ---
Demographics + + + | Address | [address] | | | [place] [facility] [place] [place] [address] | + + + | Home Phone | | + + + | Preferred Language | Unknown | + + + | Marital Status | Single | + + + | Temple Affiliation | CHR | + + + | Race | White | + + + | Ethnic Group | Not or | + + + Author + + + | Author | [facility] [employer] [facility] | + + + | Organization | [facility] | + + + | Address | Unknown | + + + | Phone | Unavailable | + + + Support + + +---------+ + | Name | Relationship | Address | Phone | + + +---------+ + | Servando Boyer | ECON | Unknown | | + + +---------+ + Care Team Providers + +------+ + | Care Sales Recruitment Specialist Name | Role | Phone | + +------+ + | Aryan Grossman MD | PCP | | + +------+ + Encounter Details +--------+ + + + + | Date | Type | Department | Care Team | Description | +--------+ + + + + | 11/25/ | Abstract | [facility] | Uro, Gen [address] | | | 2017 | | [address] | [facility] | | | | | [facility] | Road [place], [place] | | | | | and Healing, | [address] | | | | | | | | | | | [place], [place] | | | | | | [address] | | | | | | [phone] | | | +--------+ + + + [...]
--- OUTSIDE RECORDS SUMMARY | ~2020-06-06 | XMS | Encounter Summary ---
Demographics + + + | Address | NEED ADDRESS | | | [place] [address] | + + + | Home Phone [...] Author + + + | Author | [facility] | | | and [place] | + + + | Organization | [facility] | | [...] + | Hector Garcia | ECON | [place] [address] | | + + + + + Care Team Providers + +------+ + | Care Motion Picture Scene Builder Name | Role | Phone | [...] Medicine | NAHUN | Christian Gupta | [place] [address] [address] | | | Required | | (obstructive | [address] | [place] | | | | | sleep | [place] | [place], | | | | | apnea) | [facility] | [place] [address] | | | | | Organic | [place], [place] | Phone: | | | | | insomnia | [id number] | [phone] | | | | | Procedures | Phone: | Fax: | | | | | [place] POLYSOM | [phone] | [phone] | | | | | 6/>YRS SLEEP | Fax: | | | | | | W/CPAP 4/> | [phone] | | | | | | ADDL [...] | +---------+ + Evaluate & Treat (Routine) +--------+--------+ + + + + | Status | Reason | Specialty | Diagnoses / | Referred By | Referred To | | | | | Procedures | Contact | Contact | +--------+--------+ + + + + | Closed | | Internal | Diagnoses | Lisbet, | Ian, | | | | Medicine - | Obstructive | Loi | Christian Gupta | | | | Sleep | sleep apnea | PA-C [address] | [address] | | | | Medicine / | (adult) | Edilberto Alvarez | Edilberto Young | | | | Sleep | (pediatric) | [facility] | [facility] | | | | Medicine | CONSULT YRS | [place], [place] | [facility] [place] | | | | | AGO [address] | [address] | [address] Phone: | | | | | NO SS NO | Phone: | [phone] | | | | | CPAP | [phone] | Fax: | | | | | Procedures | Fax: | [phone] | | | | | NEW PATIENT | [phone] | | +--------+--------+ + + + + Encounter Details +--------+---------+ + + + | Date | Type | Department | Care Team | Description | +--------+---------+ + + + | 11/08/ | Office | [facility] | Christian Sosa | NAHUN (obstructive | | 2018 | Visit | SLEEP DISORDER [address] | [address] | sleep apnea) | | | | [address] | [address] | (Primary Dx); | | | | [place] [address] | [place] [address] | Organic insomnia; | | | | [phone] | [phone] | Smoking; | | | | | | Hypertension, | | | | | | unspecified type; | | | | | | Gastroesophageal | | | | | | reflux disease, | | | | | | esophagitis presence | | | | | | not specified; | | | | | | History of stroke | +--------+---------+ + + + Social History [...] + | Blood Pressure | 150/90 | 11/08/2017 7:52 AM | | | | | PST | | + + + + + | Pulse | 93 | 11/08/2017 7:52 AM | | | | | PST | | + + + + + | Temperature | - | - | | + + + + + | Respiratory Rate | 16 | 11/08/2017 7:52 AM | | | | | PST | | + + + + + | Oxygen Saturation | 96% | 11/08/2017 7:52 AM | | | | | PST | | + + + + + | Inhaled Oxygen | - | - | | | Concentration | | | | + + + + + | Weight | 93.5 kg (206 lb 2.1 | 11/08/2017 7:52 AM | | | | oz) | PST | | + + + + + | Height | 175.3 cm (5' 9") | 11/08/2017 7:52 AM | | | | | PST | | + + + + + | Body Mass Index | 30.44 | 11/08/2017 7:52 AM | | | | | PST | | + + + + + documented in this encounter Patient Instructions Patient Instructions Christian Sosa Jr., MD - 11/08/2017 8:43 AM PSTFormatting of this n ote might be different from the original. Continuous Positive Air Pressure (CPAP) A mask over the nose gently directs air into the throat to keep the airway open. Continuous positive air pressure (CPAP)uses gentle air pressure to hold the airway open. CPAP is often the most effective treatment for sleep apnea and severe snoring. It works very well for many people. But keep in mind that it can take several adjustments before the setu p is right for you. How CPAP works The CPAP machine is asmall portable pump beside the bed. The pumpsends air through a hose, which is held over your noseand mouthby a mask.Mild air pressureis gently push ed through your airway. The air pressure nudges sagging tissues aside. This widens the airwa y so you can breathe better. CPAP may be combined with other kinds of therapy for sleep apne a. Types of air pressure treatments There are different types of CPAP. Your doctor or CPAP product safety technician will help you decide whic h [...] as body position, sleep stage, and snoring. Date Last Reviewed: 05/05/201519994821-0346 [employer] [place] [address], [place] [address]. All righ ts reserved. This information is not intended as a substitute for professional medical care. Always follow your healthcare professional's instructions. documented in this encounter Progress Notes Christian Sosa Jr., MD - 11/08/2017 8:00 AM PSTFormatting of this note might be differen t from the original. [facility] [place] [address] Ref: Loi Frausto PA-C CC: Chief Complaint Patient presents with Consult Snoring History of the Present Illness:This is a 52 year old male who is referred for sleep medicin e consultation by Loi Frausto PA-C because of possible NAHUN. Other significant medical i ssues include history of alcoholism, Depression/anxiety, History of Cerebral Infarction, HBP , GERD, Insomnia, DJD, Prostate Cancer, Tobacco use. The patient's records ([facility] EMR and Sterling Frausto Records and previous sleep records) are reviewed. The patient is interviewed and ex amined. I first saw this patient in consultation for Dr. Aryan Layton on June 03, 2016 for very similar symptoms. Was my feeling that he likely had a combination of obstructive sleep apnea and insomnia alcohol abuse smoking and hypertension all related to his sleep. S plit-night polysomnography was ordered. We try to contact them 5 times to arrange for the s leep study which was never done. It appears that his insurance may have lapsed. He comes i n now for reevaluation. Bedtime is 9-10pm and rise time is 6am. He estimates a latency to sleep onset (he takes 3 a mitriptyline (10mg tablets) and trazodone (50mg)) and he estimates a latency to sleep onset of 45 minutes. He has nocturia once a night to urinate and he gets back to sleep easily. He has night sweats occasionally (possibly hot flashes from Prostate Cancer hormonal therapy). He denies nocturnal heartburn. He often awakens with a dry mouth and nasal/sinus congestion. He often awakens with morning headaches. Once asleep he awakens only once to urinate but he otherwise feels he stays asleep all night. Prior to starting amitriptyline and trazodone 2 years ago he had a very fragmented sleep where he would sleep for only an hour or less befor e awakening and this would occur all night long. He dreams infrequently but this has stopped with his medications. He denies hypnagogic pond ucinations. He isn't a sleep walker. He denies dream enactment while asleep - he might talk in his sleep. He denies sleep paralysis. He denies restless legs at night. He still snores loudly at night. He often awakens himself gasping for air and snorting. He can't sleep supine - he usually sleeps prone or on his side and he snores. In the daytime he feels fatigued and tired. He naps infrequently. He doesn't fall asleep dr jhaveri. He denies cataplexy. He consumes 1-2 cups of coffee a day. He doesn't consume other s ources of caffeine. Past Medical History: has a past medical history of Alcoholism ([facility]); Alopecia; Androgen d eprivation therapy; Anxiety and depression; Essential hypertension, benign; GERD (gastroesop hageal reflux disease); Hyperlipemia; Mixed, or nondependent drug abuse; Nicotine addiction; Organic insomnia; NAHUN (obstructive sleep apnea); Osteoarthritis; Polyp, sigmoid colon; Pros blair cancer ([facility]) (11/24/2013); Stroke ([facility]) (2012); TIA (transient ischemic attack); Tobacc o use; and Tongue ulcer. has a past surgical history that includes lumbar discectomy (1992); [facility] Prostatectomy (08/01/14); and Colonoscopy (N/A, 06/10/2017). No Known Allergies Current Outpatient Prescriptions Medication [...] facility-administered medications for this visit. Past Surgical History: Procedure Laterality Date COLONOSCOPY N/A 06/10/2017 Procedure: COLONOSCOPY; Surgeon: Saul Valentine MD; Location: [facility] LUMBAR DISCECTOMY 1992 ORTHOPEDIC SURGERY Right 2008 thumb PROSTATECTOMY 08/01/14 Family Medical History: family history includes Alcohol abuse in an other family member; Ar thritis in an other family member; Breast cancer in his mother and sister; Cancer in his fat her; Cancer (age of onset: 40) in his sister; Cervical cancer in his mother; High blood pres sure in his brother, brother, and father; Multiple sclerosis in his father; No Known Problem s in his brother, maternal grandfather, maternal grandmother, paternal grandfather, paternal grandmother, sister, son, and son. indicated that his mother is . He indicated that his father is . He indicat ed that only one of his two sisters is alive. He indicated that all of his three brothers ar e alive. He indicated that his maternal grandmother is . He indicated that his mater nal grandfather is . He indicated that his paternal grandmother is . He ramona cated that his paternal grandfather is . He indicated that only one of his two sons is alive. He indicated that the status of his other is unknown. He indicated that the status of his neg hx is unknown. 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 Weight gain of 20 pounds since he stop ped alcohol. Hot flashes in daytime. Eyes:Denies sudden loss of vision, diplopia, blurred vision. ENT: Denies vertigo, nasal or sinus congestion. Loss of hearing. 6 lower teeth but no oth er teeth. Card:Denies exertional substernal chest heavines. Resp: Denies cough, wheezing, asthma, hemoptysis GI: Denies nausea, vomiting, abdominal pain, diarrhea, constipation, hematochezia. : Denies dysuria, pyuria, hematuria, frequency, incontinence MS: Recent back pain and some hand pain. Neuro: Denies seizures, loss of consciousness, syncope. PMHx of CVA and concussions. No h istory of DT's Psych: Depressed and anxious frequently. Denies history of abuse or serious trauma. Endocrine: Doesn't like temperature extremes. Heme: Denies prolonged bleeding. No history of transfusions. Mild bruising he thinks. Allergic/Immunologic: Mild seasonal allergies PE: BP 150/90 | Pulse 93 | Resp 16 | Ht 1.753 m (5' 9") | Wt 93.5 kg (206 lb 2.1 oz) | SpO2 96% | BMI 30.44 kg/m Gen: not in acute distress. Very strong tobacco odor. HEENT:Head: Normocephalic, no lesions, without obvious abnormality. Eye: Normal external eye, conjunctiva, lids cornea, MYLA. Nose: Normal external nose, mucus membranes and septum. Pharynx: Dental Hygiene adequate. Normal buccal mucosa. Mallampati 2. Dystonic movements of tongue noted throughout interview and exam. Neck / Thyroid: Supple, no masses, nodes, nodules or enlargement. Pulm: Diffuse rhonchi clear with coughing Card: regular rate and rhythm, S1, S2 normal, no murmur, click, rub or gallop GI: soft and normal bowel sounds : Not examined Rectal: Not Examined Ext: peripheral pulses normal, no pedal edema, no clubbing or cyanosis Skin:no rashes Neuro:Grossly normal except for dystonic tongue movements Psych:age appropriate and casually dressedoriented to time, place and person, mood and aff ect are within normal limits. Modest historian Heme: No cervical LN Questionnaires Review: The score of 3 on the Oaks Sleepiness scale suggests minimal robert gnized excessive daytime sleepiness. The score of 18 on the Insomnia Severity Scale suggests that the patient has a significant dissatisfaction with the quality of sleep. The score of 17 on the Lewis Depression Inventory is consistent with mild to moderate depression (he has h ad thoughts of killing himself but he would never carry them out). The score of 44 on the Be ck Anxiety Inventory suggests severe recognized anxiety. The SF36v2 suggests severe self ass essed impairment in subscales physical function, role physical, body pain, general health, v itality, social function, role emotional; mild to moderate self assessed impairment in subsc killian mental health. He scores slightly more than 2-1/2 standard deviations below the mean on the physical component scale. He scores slightly more than 2 standard deviations below the mean on the mental component scale. Assessment: NAHUN: Once again I suspect that the patient has clinically significant and possi nevaeh severe obstructive sleep apnea. I've discussed the pathophysiology of this with him aga in. I have discussed polysomnographic testing. I believe the polysomnographic testing altaf g a split-night protocol will be best. I'm not certain that he actually could successfully do a home study. I have discussed positive airway pressure therapy with him also. We will plan to bring him in to the sleep center for split-night polysomnography in the near future. Follow-up will be thereafter. Organic Insomnia: I suspect this is likely secondary to obstructive sleep apnea. My hope is that of obstructive apnea can be diagnosed and successfully treated that his insomnia wi ll resolve. HBP: Treating obstructive sleep apnea, if present, can improve blood pressure control. GERD: Treating obstructive sleep apnea, if present, can also improve nocturnal heartburn symptoms. Anxiety/Depression: Anxiety and depression can also adversely affect sleep. I will leave management of this to his primary care provider. Prostate Cancer: This is being followed at [facility]. The patien t is on hormonal therapy (injections). He does not know the specifics. Recovering Alcoholic: He is congratulated on obstructive from alcohol since June. Smoking: He is trying to taper off cigarette smoking. I've encouraged him to do so. Plan: PSG using a split-night protocol in the near future with follow-up thereafter. Patient Active Problem List Diagnosis HTN (hypertension) Alopecia Stress reaction Nicotine addiction Depression Elevated PSA Preventative health care Prostate cancer Depression with anxiety Angioedema Dental abscess Insomnia due to medical condition Alcoholism Cervical stenosis of spine NAHUN (obstructive sleep apnea) Organic insomnia Special screening for malignant neoplasms, colon Tongue mass Today, 50 minutes was spent face to face with the patient; the majority of time was spent c ounseling regarding sleep issues. Parts of this note were dictated using [employer] voice recognition software. Occasional wrong - word or sound-alike substitutions may have occurred due to the inherent limitations of voi ce recognition software. Please read the chart carefully and recognize, using context, timmy doran these substitutions have occurred. Gilbertmon, Christian Gupta Jr., MD - 11/08/2017 8:00 AM PSTFormatting of this note might be different from the origin al. 11/08/17 0700 Lewis Depression Inventory-II Depression Score 17 - Mild depression Insomnia Severity Index Insomnia Severity Index 18 Oaks Sleepiness Scale Sitting and reading 0 Watching TV 0 Sitting, inactive in a public place (e.g. a theatre or a meeting) 0 As a passenger in a car for an hour without a break 1 Lying down to rest in the afternoon when circumstances permit 1 Sitting and talking to someone 0 Sitting quietly after a lunch without alcohol 1 In a car, while stopped for a few minutes in traffic 0 Total score 3 SF-36v2 Score PF 19.26 RP 25.72 BP 21.68 GH 28.46 VT 22.89 SF 22.25 RE 14.39 MH 37.79 PCS 23.04 MCS 27.93 documented in th is encounter Plan of Treatment + + +--------+ + + | Name | Type | Priori | Associated Diagnoses | Order Schedule | | | | ty | | | + + +--------+ + + | * [facility] - | Outpatient | Routin | NAHUN (obstructive | Ordered: 11/08/2017 | | AMB Referral | Referral | e | sleep apnea) | | | | | | Organic insomnia | | + + +--------+ + + documented as of this encounter Visit Diagnoses + + | Diagnosis | + + | NAHUN (obstructive sleep apnea) - Primary Obstructive sleep apnea (adult) (pediatric) | + + | Organic insomnia Organic insomnia, unspecified | + + | Smoking Tobacco use disorder | + + | Hypertension, unspecified type | + + | Gastroesophageal reflux disease, esophagitis presence not specified | + + | History of stroke Transient ischemic attack (TIA), and cerebral infarction without | | residual deficits | + + documented in this encounter
--- OUTSIDE RECORDS SUMMARY | ~2020-06-06 | XMS | Encounter Summary ---
Demographics + + + | Address | NEED ADDRESS | | | [place] [address] | + + + | Home Phone [...] Author + + + | Author | [facility] | | | and [place] | + + + | Organization | [facility] | | | [...] + | Hector Garcia | ECON | [place] [address] | | + + + + + Care Team Providers + +------+ + | Care Operations Support Coordinator Name | Role | Phone | + +------+ + | Aryan Grossman MD | PCP | | + +------+ + Reason for Visit + +--------+ + | Reason | Onset | Comments | | | Date | | + +--------+ + | Medication Prior | 07/02/ | | | Authorization | 2013 | | + +--------+ + Encounter Details +--------+ + + + + | Date | Type | Department | Care Team | Description | +--------+ + + + + | 07/02/ | Telephone | [facility] | Zeeshan Hawkins, | Medication Prior | | 2013 | | [address] | [address] | Authorization | | | | [place] | [place] | | | | | [phone] | [address] | | | | | [phone] | | | +--------+ + + + [...] Telephone Encounter - Ileana Castillo RN - 07/03/2014 2:07 PM PDTReceived approval. P atient notified. el ephone Encounter - Ankita Herrera RN - 07/02/2014 2:36 PM PDTForm received, completed and faxed back with 06/20/14 chart notes with note "Urgent Please, patient only has 2 pills l eft". elephone Enc ounter - Ankita Herrera RN - 07/02/2014 1:33 PM PDTReceived fax from [employer] asking u s to call [facility] for medication prior authorization. Called and spoke with Danyelle. She will fax form for us to complete. If we ousmane it "Urgent" they can process it more quickly. E lectronically signed by Ankita Herrera RN at 07/02/2014 1:57 PM PDTdocumented in this e ncounter Plan of Treatment Not on filedocumented as of this encounter Visit Diagnoses Not on filedocumented in this encounter
--- OUTSIDE RECORDS SUMMARY | ~2020-06-06 | XMS | Encounter Summary ---
Demographics + + + | Address | NEED ADDRESS | | | [place] [address] | + + + | Home Phone [...] Hector Garcia | ECON | [place] [address] | | + + + + + Care Team Providers + +------+ + | Care Chimney Repairer Name | Role | Phone | + +------+ + | Loi Frausto PA-C | PCP | | + +------+ + Reason for Visit + + + | Reason | Comments | + + + | Dressing Change | Dressing Change/ Brace Fitting for Left Carpal Tunnel Release | | | DOS: 03/10/2018 | + + + Encounter Details +--------+ + + + + | Date | Type | Department | Care Team | Description | +--------+ + + + + | 03/13/ | Clinical | [facility] | Remberto Hurst, | Carpal tunnel | | 2018 | Support | ORTHOPEDIC SURGERY | MD [address] | syndrome of left | | | | [address] | [place] | wrist (Primary Dx); | | | | [place] | [address] | Dressing change; | | | | [address] | | Aftercare for | | | | [phone] | | fitting and | | | | | | adjustment of brace | +--------+ + + + + Social [...] documented as of this encounter Progress Notes Sanjuana Lundy, AILYN - 03/13/2018 9:30 AM PDTPatient came into office for a dressing efrain nge which was done. Patient had a left carpal tunnel release on 03/10/2018d Incision is inta ct, no drainage, no redness or odor. A 2 x 4 Band aid was applied to incision and also put o n a stockinnet and wrist brace. Patient was instructed to keep incision clean and dry, ellison ge band aid daily, elevate and wiggle fingers throughout the day. Patient also instructed to contact our office immediately if he experiences any signs of infection such as redness, dr conklin, fever, odor. Patient voiced understanding. Patient confirmed he will be here for his scheduled follow-up appt in our office. Patient will call with any question or concerns, if any, between now and the appointment. documented in this encounter Miscellaneous Notes Addendum Note - Sanjuana Lundy LPN - 03/13/2018 9:30 AM PDT Addended by: MARILUZ LUNDY on: 03/13/2018 16:28 Modules accepted: Level of Service documented in th is encounter Plan of Treatment Not on filedocumented as of this encounter Visit Diagnoses + + | Diagnosis | + + | Carpal tunnel syndrome of left wrist - Primary Carpal tunnel syndrome | + + | Dressing change Encounter for change or removal of nonsurgical wound dressing | + + | Aftercare for fitting and adjustment of brace | + + documented in this encounter"
--- OUTSIDE RECORDS SUMMARY | ~2020-06-06 | XMS | Encounter Summary ---
Demographics + + + | Address | NEED ADDRESS | | | [place] [address] | + + + | Home Phone [...] Author + + + | Author | [facility] | | | and [place] | + + + | Organization | [facility] | | [...] Hector Garcia | ECON | [place] [address] | | + + + + + Care Team Providers + +------+ + | Care Engine Monitor Name | Role | Phone | + +------+ + PCP | Unavailable | + +------+ + Encounter Details +--------+ + + + + | Date | Type | Department | Care Team | Description | +--------+ + + + + | 03/23/ | Hospital | [facility] | | | | 1993 - | Encounter | [facility] | | | | | | [address] | | | | 04/21/ | | [place] [address] | | | | 1993 | | [phone] | | | +--------+ + + + [...]
--- OUTSIDE RECORDS SUMMARY | ~2020-06-06 | XMS | Encounter Summary ---
Demographics + + + | Address | [address] | | | [place] [address] | + + + | Home Phone [...] Author + + + | Author | [facility] | + + + | Organization | [facility] | + + + | Address | Unknown | + + + | Phone | Unavailable | + + + Support + + +---------+ + | Name | Relationship | Address | Phone | + + +---------+ + | Servando Boyer | ECON | Unknown | | + + +---------+ + Care Team Providers + +------+ + | Care Transfer Operator Name | Role | Phone | + +------+ + | Aryan Grossman MD | PCP | | + +------+ + Reason for Visit Diagnostic Testing (Routine) +--------+--------+ + + + [...] Prostate | Shayy N, | [address] | | | | | cancer (HCC) | [address] | [address] | | | | | Procedures | [address] | Charlie Marx | | | | | MRI PELVIS | [place], [place] | Research | | | | | WWO | [address] | Center | | | | | CONTRAST NE | | [place], [place] | | | | | MRI, | | [address] | | | | | PELVIS, | | Phone: | | | | | COMBO | | [phone] | | | | | | | Fax: | | | | | | | [phone] | +--------+--------+ + + + + Encounter Details +--------+ + + + + | Date | Type | Department | Care Team | Description | +--------+ + + + + | 07/09/ | Hospital | Diagnostic Imaging | | | | 2013 | Encounter | Services at [facility] | | | | | | [address] | | | | | | [address] | | | | | | [facility] | | | | | | [place], [place] | | | | | | [address] | | | | | | [phone] | | | +--------+ + + + [...] +---------+--------+ + documented as of this encounter Miscellaneous Notes Scan - Analia Acevedo - 07/17/2014 12:52 PM PDTElectronically signed by Faculty Other at 12:52 PM PDTdocumented in this encounter Plan of Treatment Not on filedocumented as of this encounter Procedures + +--------+ + + + | Procedure Name | Priori | Date/Time | Associated Diagnosis | Comments | | | ty | | | | + +--------+ + + + | MRI PELVIS [facility] | Priori | 07/09/2014 | Prostate cancer | Results for this | | CONTRAST | ty | 6:51 PM | (HCC) | procedure are in the | | | | PDT | | results section. | + +--------+ + + + | CREATININE, POC | Routin | 07/09/2014 | | Results for this | | | e | 5:03 PM | | procedure are in the [...] cancer. | | | | | | [place] 4+3disease in | | | | | [...] | | + +---------+ + + | [facility] DEPARTMENT OF | | | | | RADIOLOGY | | | | + +---------+ + + ROUTINE CHEMISTRY TESTS (RADIOLOGY), POC (07/09/2014 5:03 PM PDT) + +-------+ + + + | Component | Value | Ref Range | Performed | Pathologist | | | | | At | Signature | + +-------+ + + + | CREATININE, | 0.9 | 0.7 - 1.3 mg/dL | [facility] - | | | POC | | | [place] | | | | | | TOMAS ALANIS | | [...] MEAGAN CAN | [address] | [place], [place] | | | [facility] | [address] | [address] | | | TESTS | | | | + + + + + documented in this encounter Visit Diagnoses + + | Diagnosis | + + | Prostate cancer (HCC) Malignant neoplasm of prostate | + + documented in this encounter"
--- OUTSIDE RECORDS SUMMARY | ~2020-06-06 | XMS | Encounter Summary ---
Demographics + + + | Address | NEED ADDRESS | | | [place] [address] | + + + | Home Phone [...] Hector Garcia | ECON | [place] [address] | | + + + + + Care Team Providers + +------+ + | Care Select Banker Name | Role | Phone | + +------+ + | Aryan Grossman MD | PCP | | + +------+ + Encounter Details +--------+ + + + + | Date | Type | Department | Care Team | Description | +--------+ + + + + | 04/02/ | Hospital | [facility] | Aryan Grossman, | Prostate cancer | | 2015 | Encounter | MED CTR LABORATORY | [address] | ([facility]) | | | | [address] [place] | [address] [place], | | | | | [place], [place] | [place] [address] | | | | | [address] | [phone] | | | | | [phone] | | | +--------+ + + + [...] | 1 | 01/02/20 | | | (PRINIVIL ZESTRIL) | | tablet | | 15 [...] encounter Progress Notes Aryan Grossman MD - 04/04/2015 11:56 AM PDT Quick Note: Ok for ma to notify patient that he has somewhat abnormal labs and would like to discuss w carolina 2 weeks documented in thi s encounter Plan of Treatment Not on filedocumented as of this encounter Procedures + +--------+ + + + | Procedure Name | Priori | Date/Time | Associated Diagnosis | Comments | | | ty | | | | + +--------+ + + + | PSA, DIAGNOSTIC | Routin | 04/02/2015 | Prostate cancer | Results for this | | | e | 2:28 PM | (HCC) | procedure are in the | | | | PDT | | results section. | + +--------+ + + + documented in this encounter Results PSA, Diagnostic (04/02/2015 2:28 PM PDT) + +-------+ + + + | Component | Value | Ref Range | Performed | Pathologist | | | | | At | Signature | + +-------+ + + + | PSA | 1.74 | <=4.00 ng/mL | [facility] | | [...] | + + + + + | [facility] | [address] | RON[place] Torres | [phone] | | [facility] | | [address] | | | - LABORATORY | | | | + + + + + documented in this encounter Visit Diagnoses + + | Diagnosis | + + | Prostate cancer (HCC) Malignant neoplasm of prostate | + + documented in this encounter"
--- OUTSIDE RECORDS SUMMARY | ~2020-06-06 | XMS | Encounter Summary ---
Demographics + + + | Address | NEED ADDRESS | | | [place] [address] | + + + | Home Phone [...] Author + + + | Author | [facility] | | | and [place] | + + + | Organization | [facility] | | | [...] + | Hector Garcia | ECON | [place] [address] | | + + + + + Care Team Providers + +------+ + | Care Mobile Home Technician Name | Role | Phone | [...] (HCC) | [address] | [address] | | | | | Procedures | [address] [place] | [place], | | | | | [place] Bone | [place], [place] | [place] | | | | | Scan Whole | [address] | [address] | | | | | Body | Phone: | Phone: | | | | | | [phone] | [phone] | | | | | | Fax: | Fax: | | | | | | [phone] | [phone] | +--------+--------+ + + + + Encounter Details +--------+ + + + + | Date | Type | Department | Care Team | Description | +--------+ + + + + | 05/29/ | Hospital | [facility] | Zeeshan Hawkins, | | | 2013 | Encounter | MED CTR NUCLEAR | [address] | | | | | MEDICINE [address] | [place], [place] | | | | | [place], | [address] | | | | | [place] [address] | | | | | | [phone] | | | +--------+ + + + [...] BODY | e | 11:53 AM | ([facility]) | procedure are in the | | [...] + | MISCELLANEOUS LAB | | | [phone] | + +---------+ + + | MISCELANIOUS LAB | | | [phone] | + +---------+ + + documented in this encounter Visit Diagnoses Not on filedocumented in this encounter"
--- OUTSIDE RECORDS SUMMARY | ~2020-06-06 | XMS | Encounter Summary ---
Demographics + + + | Address | [address] | | | [place] [address] | + + + | Home Phone [...] + | Author | [facility] | + + + | Organization | [facility] | + [...] Team Providers + +------+ + | Care Nursery Hand Name | Role | Phone | + +------+ + | Aryan Grossman MD | PCP | | + +------+ + Encounter Details +--------+ + + + + | Date | Type | Department | Care Team | Description | +--------+ + + + + | 03/28/ | Inclusion Paraeducator | Urology at [facility] | Simran Osman, | Prostate cancer | | 2017 | | [address] | [address] | ([facility]) (Primary Dx) | | | | Mailcode: CH10U | [address] | | | | | [facility] | [place], [place] | | | | | and Healing, | [address] | | | | | Building | [phone] | | | | | Floor [place], [place] | | | | | | [address] | | | | | | [phone] | | | +--------+ + + + [...] this encounter Miscellaneous Notes Telephone Encounter - Nilson Coelho MA - 03/28/2017 4:02 PM PDTTC with pt, notified of mos t recent PSA result and orders placed. Pt acknowledged to complete labs before appt. In elephone Encounter - Do Nilson garcia MA - 03/28/2017 3:39 PM PDTTC attempt to pt, no voicemail box setup. Will re-at tempt before end of day. PSA Total & Testosterone Serum ordered for Jun 27 appt., per Hilary documented in this encounter Plan of Treatment Not on filedocumented as of this encounter Visit Diagnoses + + | Diagnosis | + + | Prostate cancer (HCC) - Primary Malignant neoplasm of prostate | + + documented in this encounter"
--- OUTSIDE RECORDS SUMMARY | ~2020-06-06 | XMS | Encounter Summary ---
Demographics + + + | Address | NEED ADDRESS | | | [place] [address] | + + + | Home Phone [...] Hector Garcia | ECON | [place] [address] | | + + + + + Care Team Providers + +------+ + | Care Speech Language Pathologist Assistant Name | Role | Phone | + +------+ + | Aryan Grossman MD | PCP | | + +------+ + Reason for Visit + + + | Reason | Comments | + + + | Elevated PSA | | + + + Evaluate & Treat (Urgent) +--------+ + + + + + | Status | Reason | Specialty | Diagnoses / | Referred By | Referred To | | | | | Procedures | Contact | Contact | +--------+ + + + + + | Closed | Specialty | Urology | Diagnoses | Chauncey, | Shruthi, | | | Services | | Elevated | Aryan Velásquez MD | Zeeshan Powell MD | | | Required | | PSA | [address] | [address] | | | | | | [address] | [place] | | | | | | [place] | [place], [place] | | | | | | [place], [place] | [address] Phone: | | | | | | [address] | [phone] | | | | | | Phone: | Fax: | | | | | | [phone] | [phone] | | | | | | Fax: | | | | | | | [phone] | | +--------+ + + + + + Encounter Details +--------+---------+ + + + | Date | Type | Department | Care Team | Description | +--------+---------+ + + + | 12/24/ | Office | [facility] | Zeeshan Hawkins, | Elevated PSA | | 2013 | Visit | [address] | MD [address] | (Primary Dx); | | | | [place] | [place] | Abnormal prostate by | | | | [address] | [id number] | palpation; | | | | [phone] | | Hypertrophy of | | | | | | prostate with | | | | | | urinary obstruction | | | | | | and other lower | | | | | | urinary tract | | | | | | symptoms (LUTS); | | | | | | Nocturia; ED | | | | | | (erectile | | | | | | dysfunction) | +--------+---------+ + + + Social History [...] + + + | Blood Pressure | 146/106 | 12/24/2013 9:08 AM | | | | | PDT | | + + + + + | Pulse | 74 | 12/24/2013 9:08 AM | | | | | PDT | | + + + + + | Temperature | - | - | | + + + + + | Respiratory Rate | 16 | 12/24/2013 9:08 AM | | | | | PDT | | + + + + + | Oxygen Saturation | - | - | | + + + + + | Inhaled Oxygen | - | - | | | Concentration | | | | + + + + + | Weight | 88 kg (194 lb) | 12/24/2013 9:08 AM | | | | | PDT | | + + + + + | Height | 175.3 cm (5' 9") | 12/24/2013 9:08 AM | | | | | PDT | | + + + + + | Body Mass Index | 28.65 | 12/24/2013 9:08 AM | | | | | PDT | | + + + + + documented in this encounter Patient Instructions Patient Instructions Zeeshan Hawkins MD - 12/24/2013 9:36 AM PDTPreparation for transrect al ultrasound needle biopsies of the prostate: Preparation consists of: 1. No aspirin or blood thinners for one-week prior to the prostate biopsy. 2. Use one Fleets enema (available [id number]-[id number] at any drug store without prescription ) approximately 2 hours before the prostate biopsy. 3. Take one Cipro antibiotic tablet one hour prior to the prostate biopsy. You may eat and drink prior to the procedure. It is not necessary to fast. If you have any questions about this procedure, or the preparation, please call ARLETH Fay, at [phone]. Expect to see blood in the urine and blood in the stool for several days following this pro cedure. You may also see blood in the ejaculate for several weeks following this procedure. documented in this encounter Progress Notes Zeeshan Hawkins MD - 12/24/2013 9:09 AM PDTFormatting of this note might be different fro m the original. Mani is a 48 y.o. male patient of Aryan Grossman being seen today for an elevated PSA. Reviewed. See separate dictation. DAH I spent in excess of 45 minutes with Mani today, over 50% of this time spent in counselin g regarding his abnormal PSA and abnormal prostate exam and possible prostate cancer. Past Medical History He has a past medical history of Hypertension; GERD (gastroesophageal reflux disease); Stro ke (HCC); Hyperlipemia; Alcoholism (HCC); Elevated PSA; Nicotine addiction; Alopecia; and De [...] Allergies Medications: Outpatient Encounter Prescriptions as of 12/24/2013 Medication Sig Dispense Refill aspirin (ASPIRIN ADULT LOW STRENGTH) 81 MG EC tablet Take 1 tablet by mouth Daily. 90 tablet 3 escitalopram (LEXAPRO) 10 mg tablet Take 1 [...] (with breakfast & dinner). 30 tablet 0 REVIEW OF SYSTEMS: [] All Negative Constitutional Symptoms: []Fever []Chills []Headache [x]Change in appetite, weight, energy []Other: Neurological: []Tremors []Dizzy Spells []Numbness/Tingling []Seizures []Other: Endocrine: []Excessive thirst []Too hot/cold []Tired/Sluggish Gastrointestinal: []Abdominal pain []Nausea/vomiting []Indigestion/heartburn []Change in stool size or shape or color []Pain with swallowing []Other: Cardiovascular: []Chest Pain []Rapid heart rate [x]High blood pressure []Other: Integumentary: []Skin rash []Boils []Persistent itch []Other: Musculoskeletal: []Neck Pain [x]Joint swelling/pain []Back pain [x]Bone pain []Other: Respiratory: []Wheezing []Frequent cough []Shortness of breath []Other: Hematologic/Lymphatic: []Swollen glands []Blood clotting problems []Prior blood transfusions []Other: Psychologic: Are you generally satisfied with your life? yes Do you feel severely depressed? no Have you considered suicide? no Other: Habits: Do you smoke? yes [x] Yes [] No Patient advised to follow up with PCP regarding positive review of syste ms. AUA BPH SYMPTOM SCORE Not at all [...] urinated? [] 0 [] 1 [] 2 [] 3 [] 4 [x] 5 URGE TO URINATE Over the past month, how often have you found it difficult to postpone uri nation? [] 0 [] 1 [] 2 [] 3 [] 4 [x] 5 WEAK STREAM Over the past month, how often have you had a weak urinary stream? [] 0 [] 1 [] 2 [] 3 [] 4 [x] 5 STRAINING Over the past month, how often have you had to push or strain to begin urination ? [] 0 [] 1 [] 2 [] 3 [] 4 [x] 5 None 1 time 2 times 3 times 4 times 5 or more times URINATING AT NIGHT Over the past month, how many times did you most typically get up to ur inated from the time you went to bed at night until the time you got up in the morning? [] 0 [] 1 [] 2 [x] 3 [] 4 [] 5 Symptom Score: Mild 1-7, Moderate 8-19, Severe 20-35 TOTAL: 28 BOTHER SCORE DUE TO URINARY SYMPTOMS Delighted Pleased Mostly Satisfied Mixed Mostly dissatisfied Unhappy Terrible BOTHERSOMENESS OF URINARY SYMPTOMS How would you feel if you had to live with your urinary condition the way it is now, no better, no worse, for the rest of your life? [] 0 [] 1 [] 2 [] 3 [] 4 [x] 5 [] 6 BP 146/106 | Pulse 74 | Resp 16 | Ht 1.753 m (5' 9") | Wt 87.998 kg (194 lb) | BMI 28.64 kg /m2 Reviewed. See separate dictation. DAH Zeeshan Vallejo MD - 12/24/2013 12:00 AM PDT UROLOGY [address] [place] [address] FAX: [phone] OFFICE VISIT CONSULTATION REQUESTING PROVIDER: Dr. Grossman REASON FOR CONSULTATION: Abnormal PSA. CLINICAL SUMMARY: Mani reports that he recently began seeing Dr. Grossman after not seeing a doctor for several years. He states that he developed some alopecia approximately 3 maddie hs ago. Underlying etiology has apparently remained unclear. Dr. Grossman performed a physical examination on 12/12/2013, and was noted to have prostate firmness. A PSA on 11/30/2013 was noted to be elevated at 75.46. Mani does have significant obstructive voiding symptoms. He has an AUA symptom score of 2 8. He has nocturia x3. He has urinary frequency q.1-2h. He has urinary urgency and frequenc y. He states he voids only small volumes with each void. He states his urinary symptoms see m to have worsened over the past 6 months. He denies any penile drainage, discharge or bleeding. He denies any hematospermia. He denie s any pain with ejaculation, but he states that he has rarely had sexual activity in the la st several months. He denies any testicular or perineal pain. He denies any changes in his bowel habits. He denies any hematochezia, melena, constipation , or diarrhea. He denies any fever or chills or nausea or vomiting. He does note low energy . He has chronic bone pain and joint pain, which he attributes to arthritis. He has high bl ood pressure. He does note some mild erectile dysfunction. Otherwise, 10-point review of sy stems today is negative. He denies a prior history of prostatitis or urinary tract infections. PAST MEDICAL HISTORY: Hypertension, GERD, stroke, hyperlipidemia, alcoholism, nicotine add iction, alopecia, depression, substance abuse (methamphetamine). PAST SURGICAL HISTORY: Back surgery 1992 (lumbar diskectomy). Right thumb surgery 2007. ALLERGIES: NO KNOWN DRUG ALLERGIES. CURRENT MEDICATIONS 1. Aspirin. 2. Lexapro. 3. Ketaconazole cream p.r.n. 4. Prinivil. 5. Naproxen. FAMILY HISTORY: Mother is at age 63, of cancer. Father at age 53, with multip le sclerosis. No known family history of prostate cancer. HABITS: He smokes 1 pack of cigarettes per day. He drinks 4 beers per day. He has recently completed rehabilitation for methamphetamine addiction. SOCIAL HISTORY: He is single. He has one child. He is not working. 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 He grew up in [place]. PHYSICAL EXAMINATION VITAL SIGNS: Blood pressure 146/106, pulse 74, respirations 16, height 5 feet 9,weight 194, body mass index 28.6. GENERAL: He is awake, alert, oriented x3, in no acute distress. He is pleasant, cooperative , well-developed, well-nourished. Mood and affect are normal. Speech is fluent. Gait is nor mal. HEENT: Normocephalic, atraumatic. He does have alopecia. His hair is chin in color. N TAI: No lymphadenopathy or thyromegaly. CHEST: Nontender to percussion. No dullness to percussion. No rib or bony tenderness. No g ynecomastia, no nipple drainage or discharge, bleeding. HEENT: Normocephalic, atraumatic. O ropharynx is clear. LUNGS: Normal respiratory effort, symmetric chest movement. No wheezing, no tachypnea at re st. BACK: No CVA tenderness. No tenderness to fist percussion of the spine. There is a surg ical scar, which is well-healed on the lower lumbar spine. ABDOMEN: Soft, nontender, nondistended. No mass. No hepatosplenomegaly. Bladder is not palp ably distended. No flank mass. No flank tenderness. GROIN: No lymphadenopathy. No palpable groin hernia. EXTREMITIES: Warm and dry with no clubbing, cyanosis, or edema. Hips and long bones are no ntender to fist percussion. GENITALIA: Penis is normal in appearance. Penis is circumcised. No penile lesion. No penile drainage, discharge or bleeding. Urethral meatus is normal in caliber. Scrotum is supple w ith benign contents. No testicular or epididymal mass, nodule, lesion, swelling or tenderne ss. ANUS AND PERINEUM: Normal in appearance. Anal sensation is intact. PSYCHIATRIC: Mood a nd affect are normal, normal judgment. SKIN: No rash or eruption. NEUROLOGIC: Awake, alert, oriented x3. Perianal sensation intact. Normal rectal sphincter t one. Normal station and gait. RECTAL: No mass. Normal sphincter tone. Prostate gland is enlarged and is diffusely firm an d feels abnormal. There is no distinct nodule palpable, but his prostate feels indurated t hroughout. Lateral sulci are intact. I am unable to palpate his seminal vesicles, but canno t palpate any seminal vesicle hypertrophy. Lateral sulci appear to be intact. No expressed prostatic secretions. No prostate bogginess or tenderness. He does have prostatic hypertroph y with gland volume estimated at 50 grams or more in size. DIAGNOSTIC DATA: AUA symptom score today is 28. Urinalysis today shows no nitrites, no leukocytes, no blood. PSA 11/30/2013 is 75.46. No additional PSA testing is available. Chemistry panel 11/30/2013 shows a GFR greater than 60, creatinine 0.86, alkaline phosphata se is normal at 85. Liver function testing normal. Electrolytes are normal. CBC on 12/01/19 shows a hematocrit of 52 and MCV of 101.6, platelets 291, hemoglobin 17.1, white blood c ell count 8.5. X-ray of the right elbow shows "no acute findings." X-ray of the right shoulder 12/07/2013 shows "no acute findings, mild degenerative changes." IMPRESSION 1. ABNORMAL PROSTATE SPECIFIC ANTIGEN. He has marked elevation of his PSA. He has had no si gns or symptoms to suggest prostatitis, other than severe obstructive voiding symptoms. 2. ABNORMAL PROSTATE. He has prostate induration. This is worrisome for prostate malignancy . 3. PROSTATIC HYPERTROPHY. 4. SEVERE OBSTRUCTIVE VOIDING SYMPTOMS. He has urinary urgency, frequency, nocturia, and a weak urinary stream. 5. ALOPECIA. 6. HYPERTENSION. 7. HISTORY OF STROKE. 8. ALCOHOLISM. 9. HISTORY OF DRUG DEPENDENCY. 10. NICOTINE ADDICTION. 11. ERECTILE DYSFUNCTION. PLAN: I had a lengthy discussion with Mani today regarding his abnormal PSA and his abnor mal prostate examination. I advised Mani that with elevated PSA and abnormal prostate I am very concerned that he m ay have prostate cancer. We discussed prostate cancer biology. We discussed treatment options for prostate cancer. I advised Mani that he absolutely must undergo a prostate biopsy. Risks, benefits, and a lternatives of this procedure are described to him in detail. He was given a pamphlet descr ibing the prostate biopsy procedure and I used this to show him how prostate biopsy would b e performed, so I was confident he had a good understanding of the procedure and the attenda nt risks involved. Alternatives include doing nothing, which is not recommended, or seeking a second opinion, which would be a viable alternative. Risks of the procedure are to include but are not limited to bleeding, pain, infection, idania lure of the procedure, need for additional procedures, inherent risks of any surgical proce dure and anesthesia. After a lengthy discussion, Mani indicates the desire that he would like to proceed with a prostate biopsy. This will be scheduled for the near future. He will use Fleet enema and Cipro prior to the biopsy. He will not take any aspirin or blood thinners for one week prio r to the procedure. He will continue his regular and customary care and followup with Dr. Grossman. He will foll ow up here sooner if any difficulties should arise in the interim, if he has any questions or concerns or any problems, whatsoever. Zeeshan Hawkins MD / MARLYN JOB #: [id number] cc: Aryan Grossman MD documented in this encounter Miscellaneous Notes Miscellaneous - [facility] - 12/24/2013 12:00 AM PDT iscellaneous - [facility] - 12/24/2013 12:00 AM PDTEle ctronically signed by Paul Shanks at 12/27/2013 12:13 PM PDTdocumented in this encounter Plan of Treatment Not on filedocumented as of this encounter Procedures + +--------+ + + + | Procedure Name | Priori | Date/Time | Associated Diagnosis | Comments | | | ty | | | | + +--------+ + + + | POCT URINALYSIS, | Routin | 12/24/2013 | Elevated PSA | Results for this | | AUTO WITH CONF | e | 9:10 AM | | procedure are in the | | | | PDT | | results section. | + +--------+ + + + documented in this encounter Results PSA, Diagnostic (02/19/2014 3:15 PM PDT) + + + + + + | Component | Value | Ref Range | Performed | Pathologist | | | | | At | Signature | + + + + + + | PSA | 86.19 (H) | <=4.00 ng/mL | [facility] | [...] + | [facility] | [address] | [place] | [phone] | | [facility] | | [id number] | | | - LABORATORY | | | | + + + + + | [facility] | [address] | [place] | | | [facility] | | [id number] | | | - LABORATORY | | | | + + + + + POCT Urinalysis Dipstick Automated (12/24/2013 9:10 AM PDT) + + + + + + | Component | Value | Ref Range | Performed | Pathologist | | | | | At | Signature | + + + + + + | Color, UA, | Flor | | | | | POC | | | | | + + + + + + | Clarity, | Clear | | | | | UA, POC | | | | | + + + + + + | Glucose, | Negative | | | | | UA, POC | | | | | + + + + + + | Bilirubin, | Negative | | | | | UA, POC | | | | | + + + + + + | Ketones, | Negative | Negative | | | | UA, POC | | | | | + + + + + + | Specific | 1.020 | | | | | [place], | | | | | | UA, POC | | | | | + + + + + + | Blood, UA, | Negative | | | | | POC | | | | | + + + + + + | pH, UA, POC | 6.5 | | | | + + + + + + | Protein, | 1+ | | | | | UA, POC | | | | | + + + + + + | Urobilinoge | 1.0 | | | | | n, UA, POC | | | | | + + + + + + | Nitrite, | Negative | | | | | UA, POC | | | | | + + + + + + | Leukocyte | Negative | | | | | Esterase, | | [...] (PSA) | + + | Abnormal prostate by palpation Unspecified disorder of prostate | + + | Hypertrophy of prostate with urinary obstruction and other lower urinary tract | | symptoms (LUTS) | + + | Nocturia | + + | ED (erectile dysfunction) Impotence of organic origin | + + documented in this encounter
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
--- OUTSIDE RECORDS SUMMARY | ~2020-06-06 | XMS | Encounter Summary ---
Demographics + + + | Address | [address] | | | [place] [address] | + + + | Home Phone | | + + + | Preferred Language | Unknown | + + + | Marital Status | Single | + + + | Congregational Affiliation | CHR | + + + | Race | White | + + + | Ethnic Group | Not or | + + + Author + + + | Author | [facility] | + + + | Organization | [facility] | + + + | Address | Unknown | + + + | Phone | Unavailable | + + + Support + + +---------+ + | Name | Relationship | Address | Phone | + + +---------+ + | Servando Boyer | ECON | Unknown | | + + +---------+ + Care Team Providers + +------+ + | Care Shipping Point Inspector Name | Role | Phone | + +------+ + | Aryan Grossman MD | PCP | | + +------+ + Reason for Visit + +--------+ + | Reason | Onset | Comments | | | Date | | + +--------+ + | Radiology Results | 09/06/ | | | | 2016 | | + +--------+ + Encounter Details +--------+ + + + + | Date | Type | Department | Care Team | Description | +--------+ + + + + | 09/06/ | Telephone | Urology at [facility] | Simran Osman, | Radiology Results | | 2017 | | [address] | ACNP [address] [facility] | | | | | Mailcode: CH10U | [facility] | | | | | [facility] | [place], [place] | | | | | and Healing, | [address] | | | | | Building | [phone] | | | | | Floor [place], [place] | | | | | | [address] | | | | | | [phone] | | | +--------+ + + + [...] Telephone Encounter - Rashida Pina MA - 09/08/2017 10:49 AM PST Jessica Mullins You; MAGDA Sandoval; Uro Red Scheduling 21 minutes ago (10:27 AM) Pt called back, advised him of the good news! He understands and has no questions. Thanks, Jessica (Routing comment) elephone Encounter - Rashida Pina MA - 09/08/2017 9:16 AM PSTFormatting of this note might be different f rom the original. MAGDA Sandoval; Uro Red Scheduling 23 hours ago (10:06 AM) No evidence of metastatic disease on bone scan. Please tell him that I am sorry for the del ay on the results. I was not aware he had had that done already. Glad it looked so good! Simran (Routing comment) LVM for Don to call our office back.Electronically signed by Rashida Pina MA at 017 9:18 AM PSTTelephone Encounter - Rashida Pina MA - 09/06/2017 4:30 PM PSTCalled p [phone] requested the imaging be pushed over. Report is in Car e Everywhere. Routing to Simran. elephone Encounter - Beata Fong - 09/06/2017 12:50 PM PSTDon calling to get results of recent NM Bone Scan Name of the test/order? NM Bone Scan Name of the facility of where the test/order was done? [facility] Date the test/order was one? July 20 2017 Advised caller that they may not receive a call back from nurse or provider until next . Caller understands and is agreeable to this? Yes Is it okay to leave a detailed message? Yes documented in this encoun ter Plan of Treatment Not on filedocumented as of this encounter Visit Diagnoses Not on filedocumented in this encounter"
--- OUTSIDE RECORDS SUMMARY | ~2020-06-06 | XMS | Encounter Summary ---
Demographics + + + | Address | NEED ADDRESS | | | [place] [address] | + + + | Home Phone [...] + | Hector Garcia | ECON | [place] [address] | | + + + + + Care Team Providers + +------+ + | Care Planning Official Name | Role | Phone | + [...] | | | | | | | NE | | | | | | | COLONOSCOPY | | | | | | | FLX DX | | | | | | | W/COLLJ SPEC | | | | | | | WHEN PFRMD | | | | | | | NE | | | | | | | COLONOSCOPY | | | | | | | W/BIOPSY | | | | | | | SINGLE/MULTI | | | | | | | PLE NE | | | | | | | COLSC FLX | | | | | | | W/RMVL OF | | | | | | | TUMOR POLYP | | | | | | | LESION SNARE | | | | | | | TQ NE | | | | | | | [...] + + + + | 06/10/ | Anesthesia | [facility] | Parveen Tay, | | | 2017 | Event | MED CTR MP INTRA OP | MD [address] | | | | | [address] | [place] | | | | | [place] | [address] | | | | | [address] | | | | | | [phone] | | | +--------+ + + + + Anesthesia Record + + + + + | Procedure Name | Responsible | Anesthesia Start | Anesthesia Stop Time | | | Anesthesiologist | Time | | + + + + + | COLONOSCOPY (N/A | Parveen Tay MD | 06/10/17 1046 | 06/10/17 1120 | | Rectum) | | | | + + + + + +----+---+ + + | Da | T | Event | Comment | | te | i | | | | | m | | | | | e | | | +----+---+ + + | 09 | 0 | | | | /1 | 9 | | | | 5/ | 5 | | | | 20 | 4 | | | | 17 | | | | +----+---+ + + | | 1 | An Checkout | Pre-use anesthesia machine/equipment checkout. | | | 0 | | | | | 3 | | | | | 7 | | | +----+---+ + + | | 1 | An Start | Reassessment prior to anesthesia induction/procedure. | | | 0 | | | | | 4 | | | | | 6 | | | +----+---+ + + | | 1 | AN | Per surgeon request | | | 0 | Antibiotic | | | | 4 | declined | | | | 7 | | | +----+---+ + + | | 1 | Pre-Procedu | | | | 0 | ral Timeout | | | | 4 | Completed | | | | 8 | | | +----+---+ + + | | 1 | An | | | | 0 | Induction | | | | 5 | | | | | 0 | | | +----+---+ + + | | 1 | First | | | | 0 | Inc/Proc St | | | | 5 | | | | | 1 | | | +----+---+ + + | | 1 | Breathing | | | | 0 | Spontaneous | | | | 5 | ly | | | | 3 | | | +----+---+ + + | | 1 | an stop | | | | 1 | data | | | | 1 | | | | | 5 | | | +----+---+ + + | | 1 | An Stop | Patient handed off to recovery nurse. | | | 2 | | | | | 0 | | | +----+---+ + + +------+ | Meds | +------+ + + + | Name | Total | + + + | lidocaine 2% | 100 mg | + + + | propofol | 80 mg | + + + | propofol | 288.4 mg | + + + | lactated ringers (LR) infusion | 600 mL | + + + + + | Name | + + | O2 Flow Rate (L/Min) | + + + + | No blood administrations on file. | + + +--------+ + + + | Type | Details | Placement | Removal | +--------+ + + + | Periph | 06/10/17; 0957; Right; Posterior | 06/10/17 0957 by | 06/10/17 1155 by | | khoa | (dorsal); Hand; [id number] | Vivienne Reza, | Shayy Acosta RN | | IV | catheter system; 20 gauge, 1 09/29 | RN | | | | in length; intradermal injection; | | | | | no longer indicated, removed per | | | | | policy/procedure, | | | | | catheter/device intact; short | | | | | term use; 06/10/17; 1155 | | | +--------+ + + + [...] encounter OR Notes Anesthesia Postprocedure Evaluation - Parveen Tay MD - 06/10/2017 11:46 AM PDTFormatti ng of this note might be different from the original. ANESTHESIA POSTANESTHESIA EVALUATION Mani Garcia 52 y.o. male 1965 [id number] Procedure(s) COLONOSCOPY (N/A Rectum) Cooperates? Yes Mental Status Performs simple tasks. Respiratory Satisfactory - Airway patent (self maintained). Cardiovascular Satisfactory - Blood pressure and heart rate acceptable Temperature Satisfactory Pain Satisfactory N/V Control Satisfactory Hydration Satisfactory - No signs of dehydration Complications None apparent Vitals: 06/10/17 0937 06/10/17 1118 BP: (!) 181/114 (!) 157/104 Pulse: 84 81 Temp: 36 C (96.8 F) 36.7 C (98.1 F) Resp: 18 16 SpO2: 99% 98% Electronically signed by Parveen Tay MD 06/10/2017 11:46 [facility] signed [facility] Parveen Tay MD at 05/27 11:46 AM PDTAnesthesia Preprocedure Evaluation - Parveen Tay MD - 06/10/2017 9: 35 AM PDT ANESTHESIA PREANESTHESIA EVALUATION Mani Garcia 52 y.o. male 1965 [id number] Procedure(s): COLONOSCOPY (N/A Rectum) Medical history, anesthesia, medications, allergy, NPO status verified histories reviewed. Review of Systems / Med History Cardiovascular (+) hypertension Pulmonary (+) smoking history (25 pack years; current)(+) sleep apnea (Noncompliant CPAP): known Neurology (+) CVA Psychology (+) depression Gastrointestinal/Hepatic (+) hyperlipidemia Cancer (+) prostate cancer [...] (NAHUN (Noncompliant CPAP), Smoker, h/o CVA) Type: Total IV anesthesia and general. Induction: Intravenous. Potential problems: None anticipated. Monitors: Standard ASA monitors. Consent statement:Anesthetic plan, alternatives, risks and benefits discussed with patient. Risks discussed included (but were not limited to): perioperative CV events, sore throat, h eart problems, respiratory events, nausea, . Consenting person understands and agrees to proceed. PARQ. TIVA/IVGA w/ propofol.. documented in this en counter Plan of Treatment Not on filedocumented as of this encounter Visit Diagnoses Not on filedocumented in this encounter Administered Medications + +--------+ +--------+------+------+ | Medication Order | MAR | Action | Dose | Rate | Site | | | Action | Date | | | | + +--------+ +--------+------+------+ | lidocaine (PF) 2% injection | Given | 06/10/20 | 100 mg | | | | Intravenous, PRN, Starting Fri | | 17 10:50 | | | | | 06/10/17 at 1050, Anesthesia | | AM PDT | | | | | Intra-op | | | | | | + +--------+ +--------+------+------+ +---+---+ | | | +---+---+ + +-------+ +-------+---+---+ | propofol (DIPRIVAN) injection | Given | 06/10/20 | 80 mg | | | | Intravenous, PRN, Starting Fri | | 17 10:50 | | | | | 06/10/17 at 1050, Anesthesia | | AM PDT | | | | | Intra-op | | | | | | + +-------+ +-------+---+---+ +---+---+ | | | +---+---+ + + + + + +---+ | propofol (DIPRIVAN) injection | Rate/Dos | 06/10/20 | 75 | 36 mL/hr | | | Intravenous, CONTINUOUS PRN, | e Change | 17 11:07 | mcg/kg/m | | | | Starting 06/10/17 at 1051, | | AM PDT | in | | | | Anesthesia Intra-op | | | | | | + + + + + +---+ + + + +-------+---+ | Rate/Dose Change | 06/10/20 | 140 | 67.2 | | | | 17 11:00 | mcg/kg/m | mL/hr | | | | AM PDT | in | | | + + + +-------+---+ | New Bag | 06/10/20 | 250 | 120 | | | | 17 10:51 | mcg/kg/m | mL/hr | | | | AM PDT | in | | | + + + +-------+---+ +---+---+ | | | +---+---+ documented in this encounter"
--- OUTSIDE RECORDS SUMMARY | ~2020-06-06 | XMS | Encounter Summary ---
Demographics + + + | Address | NEED ADDRESS | | | [place] [address] | + + + | Home Phone [...] + + + | Author | [facility] | | | and [place] | + + + | Organization | [facility] | | | [...] + | Hector Garcia | ECON | [place] [address] | | + + + + + Care Team Providers + +------+ + | Care Mannequin Maker Name | Role | Phone | [...] | | | NM Bone Scan | [address] | | | | | | Whole Body | Phone: | | | | | | | [phone] | | | | | | | Fax: | | | | | | | [phone] | | +--------+--------+ + + + + Encounter Details +--------+ + + + + | Date | Type | Department | Care Team | Description | +--------+ + + + + | 07/18/ | Hospital | [facility] | Columba oKhli | | | 2014 | Encounter | MED CTR NUCLEAR | MD [address] | | | | | MEDICINE [address] | [facility], [place] | | | | | [place], | [address] | | | | | [place] [address] | [phone] | | | | | [phone] | | | +--------+ + + + [...] uneventful administration of | | 27.2 mCi [id number], whole body planar scintigraphy is performed in [...] + | MISCELLANEOUS LAB | | | [phone] | + +---------+ + + | MISCELANIOUS LAB | | | [phone] | + +---------+ + + documented in this encounter Visit Diagnoses Not on filedocumented in this encounter"
--- OUTSIDE RECORDS SUMMARY | ~2020-06-06 | XMS | Encounter Summary ---
Demographics + + + | Address | NEED ADDRESS | | | [place] [address] | + + + | Home Phone [...] Hector Garcia | ECON | [place] [address] | | + + + + + Care Team Providers + +------+ + | Care Reel Cart Operator Name | Role | Phone | + +------+ + | Aryan Grossman MD | PCP | | + +------+ + Reason for Visit + + + | Reason | Comments | + + + | Facial Swelling | | + + + Encounter Details +--------+ + + + + | Date | Type | Department | Care Team | Description | +--------+ + + + + | 04/16/ | Emergency | [facility] | Wesley Burton | Angioedema, initial | | 2014 | | [facility] | MD Rc [address] | encounter (Primary | | | | CENTER [address] | [address] [place] | Dx); Dental | | | | [place], [place] | [place] [address] | infection | | | | [address] | [phone] | | | | | [phone] | | | +--------+ + + + [...] + + + | Blood Pressure | 128/68 | 04/16/2015 6:04 PM | | | | | PDT | | + + + + + | Pulse | 88 | 04/16/2015 7:43 PM | | | | | PDT | | + + + + + | Temperature | 36.5 C (97.7 F) | 04/16/2015 6:04 PM | | | | | PDT | | + + + + + | Respiratory Rate | 16 | 04/16/2015 7:43 PM | | | | | PDT | | + + + + + | Oxygen Saturation | 99% | 04/16/2015 7:43 PM | | | | | PDT | | + + + + + | Inhaled Oxygen | - | - | | | Concentration | | | | + + + + + | Weight | 86.2 kg (190 lb) | 04/16/2015 6:04 PM | | | | | PDT | | + + + + + | Height | 175.3 cm (5' 9.02") | 04/16/2015 6:04 PM | | | | | PDT | | + + + + + | Body Mass Index | 28.05 | 04/16/2015 6:04 PM | | | | | PDT | | + + + + + documented in this encounter Discharge Instructions Instructions Wesley Burton MD - 04/16/2015Continue taking the clindamycin Stop taking your lisinopril and talk to your doctor about an alternative blood pressure med icine documented in this encounter Medications at Time [...] + + + +---------+ + + | amoxicillin | Take 500 mg by mouth | | 0 | | | | (AMOXIL) 500 MG | 3 times daily. | | | | 5 | | capsule | | | | [...] + + + +---------+ + + | clindamycin | Take 300 mg by mouth | | 0 | | | | (CLEOCIN) 300 MG | 3 times daily. | | | | 5 | | capsule | | | | [...] documented as of this encounter ED Notes Wesley Burton MD - 04/16/2015 6:25 PM PDTFormatting of this note might be differen t from the original. [facility] Mani Garcia Emergency Department Encounter Note [address] [place] [id number] PCP:Aryan Grossman MD [phone] eMERGENCY dEPARTMENT eNCOUnter CHIEF COMPLAINT Chief Complaint Patient presents with Facial Swelling HPI Mani Garcia is a 49 y.o. male who presents for evaluation of facial swelling. The dariel ent had what was thought to be a dental infection that began above his incisors on the top s leonardo. At spread to cause swelling on the right side of the face and upper lip. He saw his d entist was put on amoxicillin. The last 24 hours he's had increasing swelling along his low er lip. He doesn't have any dental pain at this point. He saw his dentist again today and they couldn't identify any oral abscesses so they put him on clindamycin. He's had one dose of clindamycin so far. No other complaints. No fevers. He is on an DIANE inhibitor. PAST MEDICAL HISTORY Past Medical History Diagnosis Date Hypertension GERD (gastroesophageal reflux disease) Stroke (HCC) Hyperlipemia Alcoholism (HCC) Elevated PSA Nicotine addiction Alopecia Depression Cancer (HCC) 11/24/2013 prostate Prostate cancer (HCC) 08/01/14 SURGICAL HISTORY Past Surgical History Procedure Laterality Date Back surgery 1992 Lumbar diskectomy Orthopedic surgery 2007 Right thumb Prostatectomy 08/01/14 CURRENT MEDICATIONS Previous Medications ALPRAZOLAM (XANAX) 0.25 MG TABLET Take 1 tablet by mouth Twice daily as needed for Anx iety. AMOXICILLIN (AMOXIL) 500 MG CAPSULE Take 500 mg by mouth 3 times daily. ASPIRIN (ASPIRIN ADULT LOW STRENGTH) 81 MG EC TABLET Take 1 tablet by mouth Daily. CLINDAMYCIN (CLEOCIN) 300 MG CAPSULE Take 300 mg by mouth 3 times daily. LISINOPRIL (PRINIVIL, ZESTRIL) 20 MG TABLET One po qd NAPROXEN (NAPROSYN) 500 MG TABLET Take 1 tablet by mouth 2 times daily (with breakfast & dinner). 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 PHYSICAL EXAM VITAL SIGNS: (first vital signs):Temp: 36.5 C (97.7 F) Pulse: 100 Resp: 16 SpO2: 98 % B P: 128/68 mmHg Constitutional: No Acute distress Focused Exam: H ENT: He has a little swelling on the right side of the face over the cheek and right patricio ible. He has a large amount of edema of the lower lip. He has small amount of swelling of the upper lip. There is no erythema on the face. Mouth revealed reveals generally poor dentition. There is no obvious specific focus of inf ection. I'll see any intraoral abscesses. None of his teeth are tender to percussion. He has no trismus. Floor of the mouth is not elevated. Oropharynx is clear and open. Neck supple with no adenopathy. No stridor. Formal Radiology Interpretations: Ct Maxillofacial W Contrast 04/16/2015 DISCLAIMER: This is a preliminary report provided by [facility]. A final report is available at [facility]. CT MAXILLO FACIAL AREA WITH CONTRAST (CPT) CLINICAL INFORMATION: Mani Garcia is a 49 year old. eli posey who presents for evaluation of facial swelling. COMPARISON: Previous CT head 2010 PRO CEDURE: Thin section axial post contrast images were obtained through the face. Multiplanar reformations were obtained from the axial acquisition data. Contrast: 85ML OMNIPAQUE 350 IV. FINDINGS: On the left side of the mandible near the 2nd or 3rd molar there is some lucenc y in the bone which could indicate an apical abscess. There is no breakthrough along the al veolar ridge as can be seen. In the maxillary teeth in there is an opening along the alveo lar ridge near the in incisor on the left. There is also breakthrough along the alveolar ri dge on the right side near the 2nd molar. There is soft tissue swelling noted at both sites but more on the right side than on the left. There is no abscess identified. Findings may be due to inflammatory change or phlegmon. The inflammation on the right side extends up a long the right maxillary soft tissues to the nasal labial fold. No orbital involvement is s een. There is mild thickening in the maxillary sinuses. Remaining paranasal sinuses show m ild thickening in the ethmoid sinuses and sphenoid sinuses. Bones of the face are otherwise intact. There may be slight reactive adenopathy seen in the neck. IMPRESSION: 1. Small area of lucency seen near the 2nd or 3rd molar on the left mandibular side with no definite bony breakthrough. This could represent a small apical abscess. 2. Area of lucency and ero sive changes along the areolar ridge involving the left in incisor and also the right 2nd mo lar of the maxillary teeth. There is soft tissue swelling but more right-sided than left. No discrete abscess however is identified. Report sent: 04/16/2015 7:17:00 PM ED COURSE & MEDICAL DECISION MAKING Last Set of Vital Signs: Temp: 36.5 C (97.7 F) Pulse: 100 Resp: 16 SpO2: 98 % BP: 128/6 8 mmHg Pertinent Labs & Imaging studies reviewed. (See chart for details) Patient presents with significant facial swelling. He hasn't have any dental pain to palpa tion or percussion. It was thought to be a dental infection that started this. At this poi nt almost looks like he has angioedema. Elected to get a CT of the face to rule out an absc ess. This is not showing any discrete abscess. I will have him continue his clindamycin. He does have a lot of edema which is more than I would expect given his dental trouble. I'm concerned this might be angioedema related to his DIANE inhibitor's ongoing to have him stop his lisinopril as well. FINAL IMPRESSION 1. Angioedema, initial encounter 2. Dental infection Plan: Follow-up Information Follow up with Aryan Grossman MD. Specialty: Family Medicine Why: To discuss a blood pressure medicine changed. Contact information: [place] [phone] Discharge Instructions Continue taking the clindamycin Stop taking your lisinopril and talk to your doctor about an alternative blood pressure med icine Portions of this chart may have been created with [employer] voice recognition software. Occasi onal wrong-word or sound-alike substitutions may have occurred due to the inherent avila itations of voice recognition software. Please read the chart carefully and recognize, using context, where these substitutions have occurred Wesley Burton MD 04/16/15 1935 doc umented in this encounter Miscellaneous Notes ED Triage Notes - Erwin Brar RN - 04/16/2015 5:59 PM PDTReports facial swelling obdulia y was placed on amoxicillin 1 week ago by his dentist and was on abx x 1 week which wasn't g etting better the Dentist switched it to clindamycin which he just started today and the swe lling started this am before he started the clindamycin and he had taken amoxicillin this am . Not sure whether it is the medications or the dental infection. documented in this encounter Plan of Treatment Not on filedocumented as of this encounter Procedures + +--------+ + + + | Procedure Name | Priori | Date/Time | Associated Diagnosis | Comments | | | ty | | | | + +--------+ + + + | CT MAXILLOFACIAL W | STAT | 04/16/2015 | | Results for this | | CONTRAST | | 6:52 PM | | procedure are in the | | | | PDT | | results section. | + +--------+ + + + documented in this encounter Results CT Maxillofacial w Contrast (04/16/2015 6:52 PM PDT) + + | Specimen | + + | | + + + + + | Narrative | Performed At | + + + | CT MAXILLOFACIAL W CONTRAST 04/16/2015 6:48 PM HISTORY:?FACIAL | [facility] | | SWELLING. COMPARISON: None. PROTOCOL: Thin section axial CT | | | images of the maxillofacial structures were obtained after | | | administration of 85 mL Omnipaque 350 along with with coronal and | | | sagittal reformations. FINDINGS: Limited evaluation of the brain | | | demonstrates no acute findings. The bilateral eye globes are | | | normal. Extraocular muscles are intact. No intraconal or extraconal | | | abnormalities are seen. And old fracture is visualized of the right | | | medial orbital wall with mild herniation of fat. There is no | | | evidence for fracture of the nasal bones or nasal septum. In the | | | maxilla, there is absence of the left lateral incisor with associated | | | mild lucency that is consistent with an apical abscess. Lucency | | | consistent with apical abscess with breakthrough along the alveolar | | | ridge is observed near the right middle molar. Associated soft tissue | | | swelling is present bilaterally, right side more than left. No | | | abscess is identified. These findings likely represent inflammatory | | | change. These changes extend along the right maxillary soft tissues | | | to the nasolabial fold. There is no evidence for orbital involvement. | | | Mild mucosal thickening and large mucous retention cysts are | | | visualized of the maxillary sinuses. There is mild mucosal thickening | | | of the ethmoid, sphenoid, and posterior frontal sinuses. In the | | | left mandible near the middle and posterior molars, lucency is | | | observed within the bone that is suggestive of apical abscess. There | | | is no evidence for breakthrough of the alveolar ridge. The | | | temporomandibular joints are intact. The zygomatic arches and | | | pterygoid plates demonstrate no acute findings. Imaged temporal | | | bones show no acute findings. The mastoid air cells are normal. | | | Imaged pharynx is unremarkable. Imaged upper cervical spine shows | | | no acute findings. IMPRESSION - Apical abscess with cortical | | | breakthrough along the alveolar ridge of the right middle molar in | | | the maxilla. Associated soft tissue swelling is observed, right more | | | than left. No discrete soft tissue abscess is seen. Apical abscess | | | in region of absent left lateral incisor of the maxilla. Lucency | | | near the middle and posterior molars of the left mandible with no | | | osseous breakthrough consistent with apical abscess. A preliminary | | | report was sent by [facility] on 04/16/2015 at 7:17 PM with no | | | significant discrepancy. Dictated and Signed by: Horace Galvez | | | MD Electronically signed: 04/17/2015 9:46 AM | | + + + + + | Procedure Note | + + | Frank, Rad Results In - 04/17/2015 9:[address] MAXILLOFACIAL W CONTRAST 04/16/2015 | | 6:48 PMHISTORY:?FACIAL SWELLING.COMPARISON: None.PROTOCOL: Thin section axial CT images | | of the maxillofacial structures wereobtained after administration of 85 mL Omnipaque 350 | | along with with coronal andsagittal reformations.FINDINGS:Limited evaluation of the | | brain demonstrates no acute findings.The bilateral eye globes are normal. Extraocular | | muscles are intact. Nointraconal or extraconal abnormalities are seen. And old fracture | | is visualizedof the right medial orbital wall with mild herniation of fat.There is no | | evidence for fracture of the nasal bones or nasal septum. In the maxilla, there is | | absence of the left lateral incisor with associatedmild lucency that is consistent with | | an apical abscess. Lucency consistent withapical abscess with breakthrough along the | | alveolar ridge is observed near theright middle molar. Associated soft tissue swelling | | is present bilaterally,right side more than left. No abscess is identified. These | | findings likelyrepresent inflammatory change. These changes extend along the right | | maxillarysoft tissues to the nasolabial fold. There is no evidence for | | orbitalinvolvement. Mild mucosal thickening and large mucous retention cysts | | arevisualized of the maxillary sinuses. There is mild mucosal thickening of theethmoid, | | sphenoid, and posterior frontal sinuses.In the left mandible near the middle and | | posterior molars, lucency is observedwithin the bone that is suggestive of apical | | abscess. There is no evidence forbreakthrough of the alveolar ridge. The | | temporomandibular joints are intact.The zygomatic arches and pterygoid plates | | demonstrate no acute findings. Imaged temporal bones show no acute findings. The mastoid | | air cells are normal.Imaged pharynx is unremarkable.Imaged upper cervical spine shows | | no acute findings.IMPRESSION -Apical abscess with cortical breakthrough along the | | alveolar ridge of the rightmiddle molar in the maxilla. Associated soft tissue swelling | | is observed, rightmore than left. No discrete soft tissue abscess is seen.Apical abscess | | in region of absent left lateral incisor of the maxilla.Lucency near the middle and | | posterior molars of the left mandible with noosseous breakthrough consistent with apical | | abscess.A preliminary report was sent by [facility] on 04/16/2015 at 7:17 PM with | | nosignificant discrepancy.Dictated and Signed by: Horace Galvez MD Electronically | | signed: 04/17/2015 9:46 AM | |In the left mandible near the middle and posterior molars, lucency is observed | |within the bone that is suggestive of apical abscess. There is no evidence for | |breakthrough of the alveolar ridge. The temporomandibular joints are intact. | | | |The zygomatic arches and pterygoid plates demonstrate no acute findings. | | | |Imaged temporal bones show no acute findings. The mastoid air cells are normal. | | | |Imaged pharynx is unremarkable. | | | |Imaged upper cervical spine shows no acute findings. | | | |IMPRESSION - | |Apical abscess with cortical breakthrough along the alveolar ridge of the right | |middle molar in the maxilla. Associated soft tissue swelling is observed, right | |more than left. No discrete soft tissue abscess is seen. | | | |Apical abscess in region of absent left lateral incisor of the maxilla. | | | |Lucency near the middle and posterior molars of the left mandible with no | |osseous breakthrough consistent with apical abscess. | | | |A preliminary report was sent by [facility] on 04/16/2015 at 7:17 PM with no | |significant discrepancy. | | | | | |Dictated and Signed by: Horace Galvez MD | | Electronically signed: 04/17/2015 9:46 AM | + + + +---------+ + + | Performing | Address | City/State[facility] | Phone Number | | Organization | | | | + +---------+ + + | [facility] | | | | + +---------+ + + documented in this encounter Visit Diagnoses + + | Diagnosis | + + | Angioedema, initial encounter - Primary | + + | Dental infection Acute apical periodontitis of pulpal origin | + + documented in this encounter Administered Medications + +--------+ +--------+------+------+ | Medication Order | MAR | Action | Dose | Rate | Site | | | Action | Date | | | | + +--------+ +--------+------+------+ | iohexol (OMNIPAQUE 350) 350 | Given | 04/16/20 | 85 mLs | | | | mg/mL injection 85 mL 85 mL, | | 15 6:52 | | | | | Intravenous, ONCE PRN, Other, | | PM PDT | | | | | Starting 04/16/15 at 1852, For | | | | | | | 1 dose, Cat Scanner | | | | | | + +--------+ +--------+------+------+ +---+---+ | | | +---+---+ documented in this encounter
--- OUTSIDE RECORDS SUMMARY | ~2020-06-06 | XMS | Encounter Summary ---
Demographics + + + | Address | NEED ADDRESS | | | [place] [address] | + + + | Home Phone [...] Hector Garcia | ECON | [place] [address] | | + + + + + Care Team Providers + +------+ + | Care Alarm Signaler Name | Role | Phone | + +------+ + | Loi Frausto PA-C | PCP | | + +------+ + Encounter Details +--------+ + + + + | Date | Type | Department | Care Team | Description | +--------+ + + + + | 09/28/ | Orders Only | [facility] | Zeeshan Hawkins, | Prostate cancer | | 2019 | | [address] | MD [address] | (HCC) (Primary Dx) | | | | [place] | [place] | | | | | [address] | [address] | | | | | [phone] | | | +--------+ + + + [...] on filedocumented as of this encounter Results Testosterone, Total (05/04/2019 9:01 AM PDT) + +-------+ + + + | Component | Value | Ref Range | Performed | Pathologist | | | | | At | Signature | + +-------+ + + + | Testosteron | 121 | 87 - 780 ng/dL | [facility] | | | e | | | [facility] | | [...] + + | [facility] [facility] | [address] | [place] | [phone] | | [facility] | | [address] | | | - LABORATORY | | | | + + + + + PSA, Diagnostic (05/04/2019 9:01 AM PDT) + +-------+ + + + | Component | Value | Ref Range | Performed | Pathologist | | | | | At | Signature | + +-------+ + + + | PSA | 0.13 | <=4.00 ng/mL | [facility] | | [...] [address] | [place] | [phone] | | [facility] | | [address] | | | - LABORATORY | | | | + + + + + Comprehensive Metabolic Panel (05/04/2019 9:01 AM PDT) + + + + + [...] | Cl | 102 | 98 - 107 mmol/L | [facility] | | | | | | [facility] | | | | | | MEDICAL | | | | | | CENTER - | | | | | | LABORATORY | | + + + + + + | CO2 | 27 | 20 - 31 mmol/L | [facility] | | | | | | [facility] | | | | | | MEDICAL | | | | | | CENTER - | | | | | | LABORATORY | | + + + + + + | Anion Gap | 7 | 3 - 16 mmol/L | [facility] | | | | | | [facility] | | | | | | MEDICAL | | | | | | CENTER - | | | | | | LABORATORY | | + + + + + + | Glucose | 100 | 60 - 106 mg/dL | [facility] | | | | | | [facility] | | | | | | MEDICAL | | | | | | CENTER - | | | | | | LABORATORY | | + + + + + + | BUN | 24 (H) | 9 - 23 mg/dL | [facility] | | | | | | [facility] | | | | | | MEDICAL | | | | | | CENTER - | | | | | | LABORATORY | | + + + + + + | Creatinine | 1.08 | 0.70 - 1.30 | [facility] | [...] mL/min/1.73m2 | [facility] | | | [place] | RATE,ESTIMATED | | MEDICAL | | | | mL/min/1.03n4Hwmx than | | CENTER - | | [...] + + + + | Calcium | 10.1 | 8.7 - 10.4 | [facility] | | | | | mg/dL | [facility] | | | | | | MEDICAL | | | | | | CENTER - | | | | | | LABORATORY | | + + + + + + | Albumin | 4.4 | 3.2 - 4.8 g/dL | [facility] | | | | | | [facility] | | | | | | MEDICAL | | | | | | CENTER - | | | | | | LABORATORY | | + + + + + + | Bilirubin | 0.2 (L) | 0.3 - 1.2 mg/dL | [facility] | | | Total | | | [facility] | | | | | | MEDICAL | | | | | | CENTER - | | | | | | LABORATORY | | + + + + + + | Total | 6.8 | 5.7 - 8.2 g/dL | [facility] | | | Protein | | | [facility] | | | | | | MEDICAL | | | | | | CENTER - | | | | | | LABORATORY | | + + + + + + | AST | 23 | 0 - 34 U/L | [facility] | | | | | | [facility] | | | | | | MEDICAL | | | | | | CENTER - | | | | | | LABORATORY | | + + + + + + | ALT | 21 | 10 - 49 U/L | [facility] | | | | | | [facility] | | | | | | MEDICAL | | | | | | CENTER - | | | | | | LABORATORY | | + + + + + + | Alkaline | 95 | 46 - 116 U/L | [facility] | | | Phosphatase | | | [facility] | | | | | | MEDICAL | | | | | | CENTER - | | | | | | LABORATORY | | + + + + + + | Globulin | 2.4 | 2.1 - 3.8 g/dL | [facility] [...] + + + + | BUN/Creatin | 22.2 | | [facility] | | | ine [...] | [address] | [place] | [phone] | | [facility] | | [address] | | | - LABORATORY | | | | + + + + + documented in this encounter Visit Diagnoses + + | Diagnosis | + + | Prostate cancer (HCC) - Primary Malignant neoplasm of prostate | + + documented in this encounter"
--- OUTSIDE RECORDS SUMMARY | ~2020-06-06 | XMS | Encounter Summary ---
Demographics + + + | Address | NEED ADDRESS | | | [place] [address] | + + + | Home Phone [...] Hector Garcia | ECON | [place] [address] | | + + + + + Care Team Providers + +------+ + | Care Field Administrative Assistant Name | Role | Phone | + +------+ + | Aryan Grossman MD | PCP | | + +------+ + Encounter Details +--------+ + + + + | Date | Type | Department | Care Team | Description | +--------+ + + + + | 02/19/ | Hospital | [facility] | Zeeshan Hawkins, | Elevated PSA; | | 2014 | Encounter | [facility] | [address] | Prostate cancer | | | | [address] [place] | [place], [place] | (HCC) | | | | [place], [place] | [address] | | | | | [address] | | | | | | [phone] | | | +--------+ + + + [...] | + +--------+ + + + | BUN | Routin | 02/19/2014 | Prostate cancer | Results for this | | | e | 3:15 PM | (HCC) | procedure are in the | | | | PDT | | results section. | + +--------+ + + + | PSA, DIAGNOSTIC | Routin | 02/19/2014 | Elevated PSA | Results for this | | | e | 3:15 PM | | procedure are in the | | | | PDT | | results section. | + +--------+ + + + | CREATININE | Routin | 02/19/2014 | Prostate cancer | Results for this | | | e | 3:15 PM | (HCC) | procedure are in the | | | | PDT | | results section. | + +--------+ + + + documented in this encounter Results Creatinine (02/19/2014 3:15 PM PDT) + +-------+ + + + | Component | Value | Ref Range | Performed | Pathologist | | | | | At | Signature | + +-------+ + + + | Creatinine | 0.92 | 0.60 - 1.30 | [facility] | | | | | mg/dL | [facility] | | | | | | [facility] | | | | | | [facility] - | | | | | | LABORATORY | | + +-------+ + + + | eGFR, | >60 | >=60 | [facility] | | | non- | | mL/min/1.73m2 | [facility] | | | [place] | | | MEDICAL | | | [...] + | [facility] | [address] | [place] | [phone] | | [facility] | | [address] | | | - LABORATORY | | | | + + + + + | [facility] | [address] | [place], [place] | | | [facility] | | [id number] | | | - LABORATORY | | [...] + | [facility] | [address] | [place], [place] | [phone] | | [facility] | | [address] | | | - LABORATORY | | | | + + + + + | [facility] | [address] | [place], [place] | | | [facility] | | [id number] [place] [address] | | | - LABORATORY | | | | + + + + + PSA, Diagnostic (02/19/2014 3:15 PM PDT) + + + + + + | Component | Value | Ref Range | Performed | Pathologist | | | | | At | Signature | + + + + + + | PSA | 86.19 (H) | <=4.00 ng/mL | [facility] | | [...] + | [facility] | [address] | [place], [place] | [phone] | | [facility] | | [address] | | | - LABORATORY | | | | + + + + + | [facility] | [address] | [place], [place] | | | [facility] | | [id number] | | | - LABORATORY | | | | + + + + + documented in this encounter Visit Diagnoses + + | Diagnosis | + + | Elevated PSA Elevated prostate specific antigen (PSA) | + + | Prostate cancer (HCC) Malignant neoplasm of prostate | + + documented in this encounter"
--- OUTSIDE RECORDS SUMMARY | ~2020-06-06 | XMS | Encounter Summary ---
Demographics + + + | Address | NEED ADDRESS | | | [place] [address] | + + + | Home Phone [...] Hector Garcia | ECON | [place] [address] | | + + + + + Care Team Providers + +------+ + | Care Instructional Support Technician Name | Role | Phone | + +------+ + | Loi Frausto PA-C | PCP | | + +------+ + Encounter Details +--------+ + + + + | Date | Type | Department | Care Team | Description | +--------+ + + + + | 02/27/ | Hospital | [facility] | Jose Luna DO | | | 2018 | Encounter | [facility] | [address] | | | | | ONCOLOGY [address] | [place], [place] | | | | | [place], | [address] | | | | | [place] [address] | | | | | | [phone] | | | +--------+ + + + [...]
--- OUTSIDE RECORDS SUMMARY | ~2020-06-06 | XMS | Encounter Summary ---
Demographics + + + | Address | [address] | | | [place] [facility] [address] | + + + | Home Phone | | + + + | Preferred Language | Unknown | + + + | Marital Status | Single | + + + | Anabaptism Affiliation | CHR | + + + | Race | White | + + + | Ethnic Group | Not or | + + + Author + + + | Author | [facility] | + + + | Organization | [facility] | + + + | Address | Unknown | + + + | Phone | Unavailable | + + + Support + + +---------+ + | Name | Relationship | Address | Phone | + + +---------+ + | Servando Boyer | ECON | Unknown | | + + +---------+ + Care Team Providers + +------+ + | Care Strip Feeder Name | Role | Phone | + +------+ + | Aryan Grossman MD | PCP | | + +------+ + Reason for Visit + +--------+ + | Reason | Onset | Comments | | | Date | | + +--------+ + | Lab Results | 10/03/ | | | | 2014 | | + +--------+ + Encounter Details +--------+ + + + + | Date | Type | Department | Care Team | Description | +--------+ + + + + | 10/03/ | Telephone | Urology at [facility] | Columba Kohli, | Lab Results | | 2014 | | [address] | [address] | | | | | Mailcode: [id number] | [place] [address] | | | | | [facility] | [phone] | | | | | and Healing, | | | | | | Building | | | | | | Floor [place], [place] | | | | | | [address] | | | | | | [phone] | | | +--------+ + + + [...] this encounter Miscellaneous Notes Telephone Encounter - Rob CespedesSUKHI - 10/08/2014 8:51 AM PSTPatient informed of the fol lowing: From: Columba Kohli MD Sent: Tuesday October 07, 2014 2:24 PM To: Rob Cespedes Remarks: [facility] Public Remarks Rob Message: His psa is .75. Could we let him know that we should repea t this in 2 months? Patient would like to have the next PSA done at [facility] in [place]. The ord er has been faxed to [phone] signed by Rob Cespedes MA at 10/08/2014 8:5 7 AM PSTTelephone Encounter - Dianne Ordonez - 10/04/2014 1:41 PM PSTPatient would like a call back with his test results, please callElectronically signed by Dianne Ordonez at 10/04 1:41 PM PSTTelephone Encounter - Dianne Ordonez - 10/03/2014 4:54 PM PSTPatient is requesting a call back with his lab results from lectronically signed by Dianne Ordonez at 10/03/2014 4:54 PM PSTdocumented in this encounter Plan of Treatment Not on filedocumented as of this encounter Visit Diagnoses + + | Diagnosis | + + | Prostate cancer (HCC) - Primary Malignant neoplasm of prostate | + + documented in this encounter"
== END 2020-06-06 13:21 | disposition home or self-care (01) ==
LOC: ED 08:11
DX: F10.129 Alcohol abuse with intoxication, unspecified (principal); F15.129 Other stimulant abuse with intoxication, unspecified; Y90.5 Blood alcohol level of 100-119 mg/100 ml; Z59.0 Homelessness
CPT/HCPCS: 80053; 85025; 96365; 96366; 99284-25; G0480; J3411; J7030